=== PATIENT | female | born 1960 | race Caucasian/White ===

== ENCOUNTER 2023-09-25 12:30 | Outpatient (OUT) | payer OTHER, SELFPAY ==
--- NOTE | 2023-09-25 | RT_ITS ---
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 Findings were considered accurate and reproducible. Both pre- and post-bronchodilator values utilized for spirometry. Spirometry (based on pre-bronchodilator values): -FEV1/FVC: Normal @ 76% -FEV1: Normal @ 84% -FVC: Normal @ 85% -There is no significant bronchodilator response. Impressions: -Technically normal spirometry - non-diagnostic. If asthma remains in the differential, may consider methacholine challenge testing. May also consider ordering plethysmography and diffusion capacity if concerned for cardiovascular pulmonary disease or interstitial lung disease. Clinical correlation required. Electronically Signed On 09-28-2023 7:54:09 EDT by Alonso Turner
[2023-09-25] MEDS: ALBUTEROL SULFATE 2.5 MG/3 ML VIAL NEB IH (13:03)
== END 2023-09-25 12:31 | disposition home or self-care (01) ==
LOC: CARD 12:33
PROVIDERS: PCP Family Medicine; Visit Provider Family Medicine
DX: R06.09 Other forms of dyspnea (principal)
CPT/HCPCS: 94060

== ENCOUNTER 2023-11-07 18:21 | Inpatient (IN) | payer OTHER, SELFPAY ==
[2023-11-07] VITALS (22 sets, daily range): BP systolic 107–163; BP diastolic 91–119; PULSE 72–88; TEMP 35.9–36.6; O2SAT 91–98; BMI 26.8
--- NOTE | 2023-11-07 18:34 | ED.SOB1 ---
HPI - SOB/Dyspnea General Chief Complaint: Shortness of Breath/Dyspnea Stated Complaint: DIFF BREATHING Time Seen by Provider: 11/07/23 18:33 Source: patient Mode of arrival: ambulance History of Present Illness HPI Narrative: This patient is here by EMS for shortness of breath. Paramedics report that her family had her on the porch waiting for them to go. She was on 4 L of nasal cannula but had a pulse ox in the low 80s. They administered a nonrebreather mask and it did improve. Historically the paramedics obtained the story that she was just at [email or web address] hospitalized for approximately 1 week and was just discharged. She went home on oxygen. Prior to that she had never been on any oxygen therapy. They did not do a bronchoscopy and according to the patient they were not exactly sure what the problem was but they want her to follow-up with the sourcing specialist. She does say that they checked her heart and every there is seem to be normal. She does not use tobacco products and has no history of asthma or reactive lung disease or COPD. She is not taking any antibiotics. We are waiting for family members to arrive. She was seen immediately upon arrival by myself. Related Data Allergies Allergy/AdvReac Type Severity Reaction Status Date / Time aspirin AdvReac Severe Unknown Verified 11/07/23 18:35 clopidogrel [From Plavix] AdvReac Severe Unknown Verified 11/07/23 18:35 ibuprofen AdvReac Severe Unknown Verified 11/07/23 18:35 Exam Constitutional Vital Signs, click to edit/add: Last Vital Signs Temp 96.6 F L 11/07/23 18:23 Pulse 87 11/07/23 18:23 Resp 24 H 11/07/23 18:23 BP 149/114 H 11/07/23 18:23 Pulse Ox 93 L 11/07/23 18:23 O2 Del Method Nonrebreather 11/07/23 18:23 O2 Flow Rate 10 11/07/23 18:23 Course Vital Signs Vital signs: Vital Signs Temperature 96.6 F L 11/07/23 18:23 Pulse Rate 87 11/07/23 18:23 Respiratory Rate 24 H 11/07/23 18:23 Blood Pressure 149/114 H 11/07/23 18:23 Pulse Oximetry 93 L 11/07/23 18:23 Oxygen Delivery Method Nonrebreather 11/07/23 18:23 Oxygen Delivery Flow Rate 10 11/07/23 18:23 Temperature 96.6 F L 11/07/23 18:23 Pulse Rate 87 11/07/23 18:23 Respiratory Rate 24 H 11/07/23 18:23 Blood Pressure 149/114 H 11/07/23 18:23 Pulse Oximetry 93 L 11/07/23 18:23 Oxygen Delivery Method Nonrebreather 11/07/23 18:23 Oxygen Delivery Flow Rate 10 11/07/23 18:23 Discharge Plan Discharge Chief Complaint: Shortness of Breath/Dyspnea Print Language: Pashto
--- NOTE | 2023-11-07 18:35 | XR_ITS ---
[place] [id number] Patient Name: JA TAVERA MRN: [id number] date: 1960 Sex: F Assigned Patient Location: ER Current Patient Location: ED.MAIN Accession/Order Number: [id number] Exam Date: 11/07/2023 18:45 Report Date: 11/07/2023 20:34 At the request of: ANNE JUNE Procedure: XR chest 1V EXAM: XR chest 1V , 11/07/2023 HISTORY: Dyspnea COMPARISON: Previous x-ray from [address] scan from 2019. TECHNIQUE: X-ray of the chest portable upright AP view. FINDINGS: Mild enlargement of the cardiac silhouette. No hilar or mediastinal enlargement. The lungs and costophrenic angles are clear. Calcified granuloma mid left lung. No acute osseous findings. XR/XR chest 1V IMPRESSION: Mild enlargement of the cardiac silhouette. Electronically authenticated by: MARY MUNOZ Date: 11/07/2023 20:34
--- NOTE | 2023-11-07 18:35 | ECG_ITS ---
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
[2023-11-07] MEDS: IPRATROPIUM/ALBUTEROL SULFATE 3 ML AMPUL.NEB IH (18:39)
[2023-11-07 18:50] LABS: PCO2 VBG 31.9 mmHg (40.0-52.0); pH VBG 7.402 (7.330-7.430)
[2023-11-07 18:56] LABS: Basophils Percent Auto 0.3 % (0.2-2.0); Hematocrit 50.2 % (36.0-48.0); Hemoglobin 16.2 g/dL (12.0-16.0); Immature Granulocytes Abs Auto 0.07 10^3/uL (0.00-0.03); Immature Granulocytes Pct Auto 0.5 % (0.0-0.5); Lymphocytes Percent Auto 7.3 % (20.5-60.0); Mean Corpuscular HGB Conc 32.3 g/dL (29.9-35.2); Mean Corpuscular Hemoglobin 28.2 pg (26.7-34.0); Mean Corpuscular Volume 87.3 fL (81.0-99.0); Mean Platelet Volume 11.2 fL (9.5-13.5); Neutrophils Absolute Auto 11.6 10^3/uL (1.4-6.5); Neutrophils Percent Auto 84.9 % (43.0-75.0); Platelet Count 110 10^3/uL (150-450); Red Blood Count 5.75 10^6/uL (4.20-5.40); White Blood Count 13.6 10^3/uL (4.0-11.0)
[2023-11-07 19:10] LABS: Adenovirus NOT DETECTED (NOT DETECTE); Bordetella parapertussis NOT DETECTED (NOT DETECTE); Coronavirus 229E NOT DETECTED (NOT DETECTE); Coronavirus HKU1 NOT DETECTED (NOT DETECTE); Coronavirus NL63 NOT DETECTED (NOT DETECTE); Coronavirus OC43 NOT DETECTED (NOT DETECTE); Human Metapneumovirus NOT DETECTED (NOT DETECTE); Human Rhinovirus/Enterovirus NOT DETECTED (NOT DETECTE); Influenza A NOT DETECTED (NOT DETECTE); Influenza B NOT DETECTED (NOT DETECTE); Mycoplasma pneumoniae NOT DETECTED (NOT DETECTE); Parainfluenza Virus 1 NOT DETECTED (NOT DETECTE); Parainfluenza Virus 2 NOT DETECTED (NOT DETECTE); Parainfluenza Virus 3 NOT DETECTED (NOT DETECTE); Parainfluenza Virus 4 NOT DETECTED (NOT DETECTE); Respiratory Syncytial Virus NOT DETECTED (NOT DETECTE); SARS-CoV-2 NOT DETECTED (NOT DETECTE)
[2023-11-07 19:17] LABS: D Dimer 18.09 mg/L FEU (<=0.59)
[2023-11-07 19:19] LABS: Alanine Aminotransferase 165 U/L (14-59); Albumin Globulin Ratio 0.8; Albumin Level 3.1 g/dL (3.4-5.0); Alkaline Phosphatase 95 U/L (46-116); Anion Gap 14.9; Aspartate Amino Transferase 101 U/L (15-37); BUN Creatinine Ratio 13.3; Bilirubin Total 0.8 mg/dL (0.2-1.0); Calcium 9.6 mg/dL (8.5-10.1); Carbon Dioxide 22.2 mmol/L (21.0-32.0); Chloride 106 mmol/L (98-107); Estimated GFR (African America 18 (>=60); Estimated GFR (Non-African Ame 15 (>=60); Globulin 4.1 g/dL; Glucose 205 mg/dL (74-106); Potassium 5.1 mmol/L (3.5-5.1); Sodium 138 mmol/L (136-145); Total Protein 7.2 g/dL (6.4-8.2)
[2023-11-07 20:53] LABS: Troponin I High Sensitivity 423.7 pg/mL (4.0-51.3)
[2023-11-08] VITALS (28 sets, daily range): BP systolic 130–173; BP diastolic 99–117; PULSE 64–87; TEMP 36.3–37.4; O2SAT 84–96; BMI 20.6
--- NOTE | 2023-11-08 01:27 | ED.GENADUL1 ---
HPI HPI - General Adult General Chief complaint: Shortness of Breath/Dyspnea Stated complaint: DIFF BREATHING Time Seen by Provider: 11/07/23 18:33 Source: patient Mode of arrival: ambulance History of Present Illness HPI narrative: 63-year-old female presented to the emergency department and was initially seen by Dr. Ramsey and signed out to me after discussing the case with him thoroughly. Please see his full history and physical exam. Related Data Home Medications ?Medication ?Instructions ?Recorded ?Confirmed alendronate 35 mg tablet 35 mg PO QWEEK 11/07/23 11/07/23 atorvastatin 40 mg tablet 40 mg PO DAILY 11/07/23 11/07/23 everolimus (immunosuppressive) 0.75 mg PO BID 11/07/23 11/07/23 0.75 mg tablet febuxostat 40 mg tablet 40 mg PO DAILY 11/07/23 11/07/23 insulin aspart U-100 100 unit/mL 10 unit subcut QPM 11/07/23 11/07/23 (3 mL) subcutaneous pen levothyroxine 150 mcg tablet 150 mcg PO QAM 11/07/23 11/07/23 linagliptin 5 mg tablet (Tradjenta) 5 mg PO DAILY 11/07/23 11/07/23 magnesium oxide 400 mg (241.3 mg 400 mg PO DAILY 11/07/23 11/07/23 magnesium) tablet Allergies Allergy/AdvReac Type Severity Reaction Status Date / Time aspirin AdvReac Severe Unknown Verified 11/07/23 18:35 clopidogrel [From Plavix] AdvReac Severe Unknown Verified 11/07/23 18:35 ibuprofen AdvReac Severe Unknown Verified 11/07/23 18:35 Opioid HPI Opioid Management Most Recent Opioid Data: No Data to Display Exam Constitutional Vital Signs, click to edit/add: Last Vital Signs Temp 97.9 F 11/07/23 19:35 Pulse 74 11/07/23 23:30 Resp 12 11/07/23 23:30 BP 136/101 H 11/07/23 23:30 Pulse Ox 91 L 11/07/23 23:30 O2 Del Method Nonrebreather 11/07/23 18:47 O2 Flow Rate 15 11/07/23 18:40 Course Vital Signs Vital signs: Vital Signs Temperature 96.6 F L 11/07/23 18:23 Pulse Rate 87 11/07/23 18:23 Respiratory Rate 24 H 11/07/23 18:23 Blood Pressure 149/114 H 11/07/23 18:23 Pulse Oximetry 93 L 11/07/23 18:23 Oxygen Delivery Method Nonrebreather 11/07/23 18:23 Oxygen Delivery Flow Rate 10 11/07/23 18:23 Temperature 97.9 F 11/07/23 19:35 Pulse Rate 74 11/07/23 23:30 Respiratory Rate 12 11/07/23 23:30 Blood Pressure 136/101 H 11/07/23 23:30 Pulse Oximetry 91 L 11/07/23 23:30 Oxygen Delivery Method Nonrebreather 11/07/23 18:47 Oxygen Delivery Flow Rate 15 11/07/23 18:40 Medical Decision Making MDM Narrative Medical decision making narrative: Extensive workup shows no specific findings. WBC is 13,000. Initial troponin 307 with a repeat of 424. She does not have chest pain and no acute findings on her EKG. This may be related to her chronic renal failure, she had a transplant and number of years ago. She recently had a VQ scan at [facility] that was negative. I have discussed the case thoroughly with the hospitalist there who accepts the patient. They do not have a bed for her right now so we will admit her here awaiting a bed to be available for her at [facility]. Findings are discussed with the patient and her family. Differential Diagnosis Differential Diagnosis: Pneumonia, CHF, COVID Lab Data Lab results reviewed: Yes I reviewed the patient's lab results Labs: Lab Results 11/07/23 11/07/23 11/07/23 Range/Units 18:42 18:49 20:15 WBC 13.6 H (4.0-11.0) 10^3/uL RBC 5.75 H (4.20-5.40) 10^6/uL Hgb 16.2 H (12.0-16.0) g/dL Hct 50.2 H (36.0-48.0) % MCV 87.3 (81.0-99.0) fL MCH 28.2 (26.7-34.0) pg MCHC 32.3 (29.9-35.2) g/dL RDW 14.0 (11.0-15.0) % Plt Count 110 L (150-450) 10^3/uL MPV 11.2 (9.5-13.5) fL Neut % (Auto) 84.9 H (43.0-75.0) % Lymph % (Auto) 7.3 L (20.5-60.0) % Sargent % (Auto) 7.0 (1.7-12.0) % Eos % (Auto) 0.0 L (0.9-7.0) % Baso % (Auto) 0.3 (0.2-2.0) % Neut # (Auto) 11.6 H (1.4-6.5) 10^3/uL Lymph # (Auto) 1.0 L (1.2-3.8) 10^3/uL Sargent # (Auto) 1.0 H (0.3-0.8) 10^3/uL Eos # (Auto) 0.0 (0.0-0.7) 10^3/uL Baso # (Auto) 0.0 (0.0-0.1) 10^3/uL Abs Immat Gran (auto) 0.07 H (0.00-0.03) 10^3/uL Imm/Tot Granulo (auto) 0.5 (0.0-0.5) % D-Dimer 18.09 H* (<=0.59) mg/L FEU VBG pH 7.402 (7.330-7.430) VBG pCO2 31.9 L (40.0-52.0) mmHg Sodium 138 (136-145) mmol/L Potassium 5.1 (3.5-5.1) mmol/L Chloride 106 (98-107) mmol/L Carbon Dioxide 22.2 (21.0-32.0) mmol/L Anion Gap 14.9 BUN 42.0 H (7.0-18.0) mg/dL Creatinine 3.16 H (0.55-1.02) mg/dL Est GFR ( Amer) 18 L (>=60) Est GFR (Non-Af Amer) 15 L (>=60) BUN/Creatinine Ratio 13.3 Glucose 205 H (74-106) mg/dL Calcium 9.6 (8.5-10.1) mg/dL Total Bilirubin 0.8 (0.2-1.0) mg/dL AST 101 H (15-37) U/L ALT 165 H (14-59) U/L Alkaline Phosphatase 95 (46-116) U/L Troponin I High Sens 371.0 H* 423.7 H* (4.0-51.3) pg/mL NT-Pro-B Natriuret Pep 20409.0 H* (<=900.0) pg/mL Total Protein 7.2 (6.4-8.2) g/dL Albumin 3.1 L (3.4-5.0) g/dL Globulin 4.1 g/dL Albumin/Globulin Ratio 0.8 Adenovirus (PCR) Not detected (NOT DETECTE) B. pertussis DNA (PCR) Not detected (NOT DETECTE) B.parapertussis DNA PCR Not detected (NOT DETECTE) C. pneumoniae DNA (PCR) Not detected (NOT DETECTE) Coronavirus Type OC43 Not detected (NOT DETECTE) Coronavirus Type HKU1 Not detected (NOT DETECTE) Coronavirus Type 229E Not detected (NOT DETECTE) Coronavirus Type NL63 Not detected (NOT DETECTE) Human Metapneumovir PCR Not detected (NOT DETECTE) Influenza Type A (PCR) Not detected (NOT DETECTE) Influenza Type B (PCR) Not detected (NOT DETECTE) M. pneumoniae (PCR) Not detected (NOT DETECTE) Parainfluenza PCR Not detected (NOT DETECTE) Parainfluenza 2 (PCR) Not detected (NOT DETECTE) Parainfluenza 3 (PCR) Not detected (NOT DETECTE) Parainfluenza 4 (PCR) Not detected (NOT DETECTE) RSV (RT-PCR) Not detected (NOT DETECTE) Entero/Rhino (PCR) Not detected (NOT DETECTE) SARS-CoV-2 (PCR) Not detected (NOT DETECTE) Imaging Data Chest x-ray: Radiologist's impression: ITS Impressions Chest X-Ray 11/07/23 18:35 IMPRESSION: Mild enlargement of the cardiac silhouette. Electronically authenticated by: MARY MUNOZ Date: 11/07/2023 20:34 ECG Data Attestation: I personally reviewed and interpreted this ECG as follows: (EKG on my interpretation shows normal sinus rhythm with a rate of 83 and no acute change) Discharge Plan Discharge Chief Complaint: Shortness of Breath/Dyspnea Clinical Impression: Hypoxemia Patient Disposition: Xfer Acute Care Hospital Time of Disposition Decision: 00:30 Discharge Location: [facility] Condition: Fair Mode of Transportation: EMS
[2023-11-08] MEDS: HEPARIN SODIUM (PORCINE) 5,000 UNIT/ML VIAL 5000 UNIT SUBQ (05:14)
[2023-11-08 05:20] LABS: Glucometer 49 mg/dL (74-106)
[2023-11-08 06:01] LABS: Glucometer 84 mg/dL (74-106)
[2023-11-08 06:19] LABS: Hematocrit 48.8 % (36.0-48.0); Hemoglobin 15.8 g/dL (12.0-16.0); Mean Corpuscular HGB Conc 32.4 g/dL (29.9-35.2); Mean Corpuscular Hemoglobin 28.1 pg (26.7-34.0); Mean Corpuscular Volume 86.7 fL (81.0-99.0); Mean Platelet Volume 11.2 fL (9.5-13.5); Platelet Count 100 10^3/uL (150-450); Red Blood Count 5.63 10^6/uL (4.20-5.40); Red Cell Distribution Width 13.9 % (11.0-15.0)
[2023-11-08 06:49] LABS: Alanine Aminotransferase 128 U/L (14-59); Albumin Globulin Ratio 0.7; Albumin Level 2.8 g/dL (3.4-5.0); Alkaline Phosphatase 80 U/L (46-116); Anion Gap 18.1; Aspartate Amino Transferase 71 U/L (15-37); Bilirubin Total 0.9 mg/dL (0.2-1.0); Calcium 9.5 mg/dL (8.5-10.1); Carbon Dioxide 20.3 mmol/L (21.0-32.0); Chloride 108 mmol/L (98-107); Estimated GFR (African America 21 (>=60); Estimated GFR (Non-African Ame 17 (>=60); Globulin 3.8 g/dL; Glucose 92 mg/dL (74-106); Magnesium 1.8 mg/dL (1.8-2.4); Phosphorus 3.3 mg/dL (2.6-4.7); Potassium 3.4 mmol/L (3.5-5.1); Sodium 143 mmol/L (136-145); Total Protein 6.6 g/dL (6.4-8.2)
[2023-11-08 06:51] LABS: Troponin I High Sensitivity 533.9 pg/mL (4.0-51.3)
[2023-11-08 06:58] LABS: Basophils Abs Manual 0.14 10^3/uL (0.00-0.10); Lymphocytes Absolute Manual 2.24 10^3/uL (1.20-3.80); Monocytes Absolute Manual 0.56 10^3/uL (0.30-0.80); Segmented Neut Absolute Manual 11.06 10^3/uL (1.4-6.5)
[2023-11-08 07:02] LABS: Burr Cells 1+
--- NOTE | 2023-11-08 08:40 | XR_ITS ---
[address] [address] Patient Name: JA TAVERA MRN: [id number] date: 1960 Sex: F Assigned Patient Location: MS Current Patient Location: ICU Accession/Order Number: [id number] Exam Date: 11/08/2023 09:48 Report Date: 11/08/2023 11:31 At the request of: CHRISTI CALVIN Procedure: XR chest 1V EXAM: XR chest 1V HISTORY: shortness of breath COMPARISON: Chest CT 04/14/2019, chest x-ray 02/03/2020.. FINDINGS: AP upright portable image. Cardiac silhouette appears slightly enlarged on AP examination. Lungs and pleural spaces are clear. Pulmonary vascular markings are normal. No airspace consolidation. XR/XR chest 1V IMPRESSION: 1. No acute cardiopulmonary process. Electronically authenticated by: REJI BARBOSA Date: 11/08/2023 11:31
[2023-11-08] MEDS: LEVOTHYROXINE SODIUM 75 MCG TABLET 150 MCG PO (08:56)
[2023-11-08] MEDS: METOPROLOL TARTRATE 25 MG TABLET PO (08:56)
[2023-11-08] MEDS: HYDROXYZINE PAMOATE 25 MG CAPSULE PO ×2 (08:56→14:46)
[2023-11-08] MEDS: FEBUXOSTAT 40 MG TABLET PO (08:57)
[2023-11-08] MEDS: MAGNESIUM OXIDE 400 MG TABLET PO (08:57)
[2023-11-08 09:27] LABS: INR 1.02; Partial Thromboplastin Time 30.5 sec (22.3-36.2); Prothrombin Time 10.8 sec (9.0-11.6)
[2023-11-08] MEDS: HEPARIN SODIUM,PORCINE/D5W 25,000 UNIT/500 ML IV.SOLN 27.108 UNIT IV (10:15)
--- NOTE | 2023-11-08 10:31 | P.HP_ITS ---
HPI H&P: HPI History of Present Illness Chief complaint: DIFF BREATHING Narrative: Patient is a 63 y.o White female with past medical history of Kidney Transplant Surgery 2006, Insulin dependent type 2 diabetes, Gout, hypothyroidism, hyperlipidemia, Hypertension and anxiety who presented to the ER last night with increased shortness of breath and low oxygen saturations. Patient was admitted at [facility] about 10 days ago for a total of 5 days, and has been home about 4 days. She reports she was being treated for pneumonia. She notes she also had a v/q scan that was negative. she had infectious disease doctor, tile professional, hospitalist all caring for her there. She was discharged home on 4L continuous Nasal Cannula and was suppose to follow up with all source intelligence technician. Yesterday she developed significant shortness of breath after showering and felt like she was suffocating when trying to breath deep. She denies fevers, chills, cough, nasal congestion or chest pain. her oxgyen was found to be 85% on her 4L so EMS was called. She denies any prior heart history other than hypertension of which she takes metoprolol. She denies any lung history, no asthma, COPD, never smoked (second hand smoke as her father growing up smoked 3 ppd). Her renal function has been elevated recently, she has only a single donor kidney. She has family history on both sides, Aunts having CA's that were fatal. She has never had heart attack or stroke. She also has no prior history of blood clots or family history of. Patient has been Accepted at [facility] but we are awaiting bed. ER findings: D-dimer 18, Cr 3.16, ProBNP 25,000, Trop 423, 533, increased LFT's 128/71, K 3.4; Cxr showed no acute process This morning patient is still present in our facility, on exam she is very short of breath with conversing. No wheezing or coughing. She also appears very nervous and tremulous. I have discussed all findings with patient. She needs transferred for further cardiac work up, and cardiology evaluation and pulmonary evaluation. She needs ECHO, V/G scan and possible Vascular. while waiting for a bed, I have placed patient on a heparin Drip. Baseline PTT pending. Will check PTT q6 hours and adjust drip accordingly. She was transferred to ICU as oxygen saturations dropped to 86% and she was placed on High flow oxygen and she is high risk for rapid decline, BPAP and possible intubation. I am treating for Presumed PE, Heart strain, NSTEMI, Acute on Chronic renal failure, and transaminitis. Opioid HPI Opioid Management Most Recent Pain and Opioid Data: Last Pain Assessment 11/08/23 09:27 Last ORT Total Score 0 11/08/23 03:01 Last ORT Risk Category Low Risk 11/08/23 03:01 Review of Systems ROS Narrative ROS: a complete review of systems were reviewed with patient and are positive as below or listed in History of Chief Complaint. General: no fever, chills, night sweats Head: no headache, trauma, visual changes, nausea or vomiting Skin: no reported rashes, itching or sores Eyes: no blurriness of vision Ears: no reported hearing loss, vertigo, earache, or tinnitus Throat: no sore throat, hoarseness, swelling of neck, or tongue pain Heart: no chest pain Lungs: shortness of breath, no cough GI: no diarrhea or vomiting/nausea Urinary: no urinary urgency, frequency or pain Neuro: no numbness or tingling HEM: no bleeding issues or bruising ENDO: no thyroid problems Psych: anxiety PFSH PFS Medical History (Updated 11/08/23 @ 10:59 by Samantha Kathleen DO) Hypothyroidism ?E03.9 - Hypothyroidism, unspecified (ICD-10) Gout ?M10.9 - Gout, unspecified (ICD-10) Insulin dependent diabetes mellitus Tonsillectomy planned Elevated troponin ?R79.89 - Other specified abnormal findings of blood chemistry (ICD-10) Congestive heart failure ?I50.9 - Heart failure, unspecified (ICD-10) Pneumonia ?J18.9 - Pneumonia, unspecified organism (ICD-10) Shortness of breath ?R06.02 - Shortness of breath (ICD-10) Surgical History History of carpal tunnel release ?Z98.890 - Other specified postprocedural states (ICD-10) H/O dilation and curettage ?Z98.890 - Other specified postprocedural states (ICD-10) Kidney transplant recipient ?Z94.0 - Kidney transplant status (ICD-10) Social History Known occupational exposures/hazards: No Highest level of school completed/degree received: high school graduate Little interest or pleasure in doing things: not at all Feeling down, depressed, or hopeless: not at all Meds Home Medications and Allergies Home Medications ?Medication ?Instructions ?Recorded ?Confirmed ?Type alendronate 35 mg tablet 35 mg PO QWEEK 11/07/23 11/07/23 History atorvastatin 40 mg tablet 40 mg PO DAILY 11/07/23 11/07/23 History everolimus (immunosuppressive) 0.75 mg PO BID 11/07/23 11/07/23 History 0.75 mg tablet febuxostat 40 mg tablet 40 mg PO DAILY 11/07/23 11/07/23 History insulin aspart U-100 100 unit/mL 10 unit subcut QPM 11/07/23 11/07/23 History (3 mL) subcutaneous pen levothyroxine 150 mcg tablet 150 mcg PO QAM 11/07/23 11/07/23 History linagliptin 5 mg tablet (Tradjenta) 5 mg PO DAILY 11/07/23 11/07/23 History magnesium oxide 400 mg (241.3 mg 400 mg PO DAILY 11/07/23 11/07/23 History magnesium) tablet metoprolol tartrate 25 mg tablet 25 mg PO BID 11/08/23 11/08/23 History Allergies Allergy/AdvReac Type Severity Reaction Status Date / Time aspirin AdvReac Severe Unknown Verified 11/07/23 18:35 clopidogrel [From Plavix] AdvReac Severe Unknown Verified 11/07/23 18:35 ibuprofen AdvReac Severe Unknown Verified 11/07/23 18:35 Exam Narrative Exam Narrative: General: Patient is alert, and oriented to person, place and time, proper hygiene, patient appears very nervous, tremulous and short of breath while conversing Skin: no visible rashes, or ulcers Head: atraumatic, acephalic Eyes: PERRLA, no nystagmus present, conjunctiva clear, no scleral icterus Ears: normal Tympanic Membrane, normal gross auditory acuity Nose: symmetric, no discharge, no maxillary or frontal sinus tenderness Mouth/Throat: no erythema, exudate, or tonsillar enlargement, normal dentition Neck: no masses palpated, normal thyroid Heart: Normal rate and rhythm, no murmurs/rubs/gallops Lungs: no audible wheezes, crackles and normal breath sounds all lung byrnes Abdomen: Normal audible bowel sounds, no distension, No palpable masses, no organomegaly, no rebound/guarding/ or rigidity Musculoskeletal: no swelling bilateral lower extremities Neuro: CN II-X grossly intact Constitutional Vital Signs, click to edit/add: Last Vital Signs Temp 98.2 F 11/08/23 08:00 Pulse 82 11/08/23 10:00 Resp 22 H 11/08/23 08:00 BP 157/100 H 11/08/23 08:00 Pulse Ox 93 L 11/08/23 09:13 O2 Del Method High Flow Nasal Cannula 11/08/23 09:13 O2 Flow Rate 10 11/08/23 09:13 Results Labs Labs: Short CBC 11/07/23 11/08/23 Range/Units 18:42 06:00 WBC 13.6 H 14.0 H (4.0-11.0) 10^3/uL Hgb 16.2 H 15.8 (12.0-16.0) g/dL Hct 50.2 H 48.8 H (36.0-48.0) % Plt Count 110 L 100 L (150-450) 10^3/uL BMP 11/07/23 11/08/23 18:42 06:00 Sodium 138 143 Potassium 5.1 3.4 L Chloride 106 108 H Carbon Dioxide 22.2 20.3 L BUN 42.0 H 39.0 H Creatinine 3.16 H 2.79 H Glucose 205 H 92 Calcium 9.6 9.5 Liver Function 11/07/23 11/08/23 Range/Units 18:42 06:00 Total Bilirubin 0.8 0.9 (0.2-1.0) mg/dL AST 101 H 71 H (15-37) U/L ALT 165 H 128 H (14-59) U/L Alkaline Phosphatase 95 80 (46-116) U/L Albumin 3.1 L 2.8 L (3.4-5.0) g/dL ABG ABG results: 11/07/23 18:42 VBG pH 7.402 VBG pCO2 31.9 L Assessment and Plan Assessment and Plan (1) Pulmonary embolism: Assessment and Plan: not able to do V/Q scan or CTA given renal function, in the setting of hypoxia, and elevated Ddimer will treat as though present with Heparin drip. Qualifiers: Chronicity: acute Acute cor pulmonale presence: unspecified Pulmonary embolism type: unspecified Qualified Code(s): I26.99 - Other pulmonary embolism without acute cor pulmonale (2) Acute respiratory failure with hypoxemia: Assessment and Plan: probable cause #1, patient transferred to ICU (3) NSTEMI (non-ST elevated myocardial infarction): Assessment and Plan: patient needs ECHO and further cardiac evaluation. continue statin, allergic to aspirin and plavix. Continue Heparin drip, Could be related to PE. Patient does not appear to hypervolemic; trops trending up 423, 533 (4) Heart failure with acute decompensation, type unknown: Assessment and Plan: patient does not appear fluid overloaded, elevated probnp 25,000, no pulmonary edema seen on CXR, no LE edema. concern for heart strain from Pulmonary emboli Qualifiers: Heart failure type: unspecified Qualified Code(s): I50.9 - Heart failure, unspecified (5) Elevated LFTs: Assessment and Plan: will need Liver ultrasound at outside facility (6) Acute on chronic renal failure: Assessment and Plan: avoid nephrotoxic meds, kidney transplant and solitary kidney Qualifiers: Acute renal failure type: unspecified Chronic kidney disease stage: unspecified stage Qualified Code(s): N17.9 - Acute kidney failure, unspecified; N18.9 - Chronic kidney disease, unspecified (7) Hypertensive cardiomegaly with heart failure: Assessment and Plan: elevated BP, start metoprolol (8) Insulin dependent diabetes mellitus: Assessment and Plan: SSI, with accuchecks, continue U100 at 10 units (9) Gout: Assessment and Plan: continue uloric Qualifiers: Gout site: unspecified site Gout etiology: due to renal impairment Chronicity: chronic Presence of tophus: without tophus Qualified Code(s): M1A.30X0 - Chronic gout due to renal impairment, unspecified site, without tophus (tophi) (10) Hypothyroidism: Assessment and Plan: continue levothyroxine Qualifiers: Hypothyroidism type: acquired Qualified Code(s): E03.9 - Hypothyroidism, unspecified (11) Kidney transplant recipient: (12) Severe anxiety with panic: Assessment and Plan: will place on Vistaril as needed. Plan Patient is a full code on Heparin drip and titrate accordingly to PTT Patient is inpatient status and hopeful transfer to [facility] today for higher level of care.
[2023-11-08] MEDS: EVEROLIMUS 0.75 MG 0.75 EACH PO (11:09)
[2023-11-08 11:19] LABS: Glucometer 140 mg/dL (74-106)
[2023-11-08] MEDS: HYDRALAZINE HCL 20 MG/ML VIAL 5 MG IVP (12:09)
[2023-11-08 12:20] LABS: Glucometer 140 mg/dL (74-106)
[2023-11-08] MEDS: NITROGLYCERIN 0.4 MG BOTTLE SL (14:27)
[2023-11-08 14:39] LABS: PTT Heparin Monitor 101.1 sec (48.2-68.6)
--- NOTE | 2023-11-08 15:16 | PC.NURSE ---
Recap of time from transfer to ICU of 1010: 1010-patient arrived to room 274. Handoff report received from Lily KAY from Med/Surg. Heparin gtt initiated as charted in APR. head to toe assessment completed as charted. patient SOB and states she does not have any pain at this time. call light within reach. 1030-significant other at bedside. questions answered. 1127-Dr. Kathleen updated on additional home medications being added to her list and also of BP. 1138-Dr. Kathleen on unit. Updated given to her on patient. She saw and spoke to patient and significant other. 1300-patient requesting to use the bedside commode. patient sat up in bed and stated she felt very dizzy and became very SOB. WOB increased. distraction and breathing techniques used to help ease patient. educated patient on need to use the bedpan at this time to decrease work for her. patient lifted bottom and bedpan placed. increased WOB noted. SpO2 decrease to 88% then after a couple of minutes returned to 92% on the 10L of oxygen. 1325-patient states she is finished on the bedpan. it was removed and pericare completed with a change in pad under her. patient with severe SOB and WOB. SpO2 decreased to 84%. RT called, instructed to increase oxygen to no more then 15L. oxygen increased by RN to 13L. SpO2 increased to 92% after several minutes of using distraction, breathing techniques, and reassurance. 1355-Dr. Kathleen notified of incidence and the increased need for additional oxygen. 1404-Dr. Kathleen called in, RN instructed to administer NTG SL once now for patient and to decrease oxygen as she recovers. Oxygen decreased to 12L, SpO2 93%. 1430-SpO2 94%, oxygen decreased to 11L 1440-lab called and informed RN that PTT was 101.1. Dr. Kathleen arrived to unit at the same time. informed of PTT. new communication order received to hold heparin gtt for one hour then decreased by 3mL/hr. Restarting rate will be 24.1mL/hr. Dr. Kathleen also went to patient and spoke with her and her significant other. Updated that [facility] [[email or web address] does not have any beds. She states she feels she needs a higher level of care. Patient and significant other agree to looking at other higher care facilities. 1446-Visteril given to patient per request. SpO2 94%, oxygen decreased to 10L.
--- NOTE | 2023-11-08 16:00 | PC.NURSE ---
Dr. Kathleen to unit to sign transfer paperwork. updated on patient.
--- NOTE | 2023-11-08 16:20 | P.DS_ITS ---
DS: Providers Provider Date of admission: 11/08/23 01:22 Primary care physician: АЛЕКСАНДР WATSON DO Admitting clinician: Samantha Kathleen Consults: 11/08/23 15:07 Consult to Cardiology Routine Reason for consultation: NSTEMI, hypoxia, elevated probnp Has provider been notified: No Discharging clinician: Samantha Kathleen DS: Diagnosis Discharge Diagnosis (1) Pulmonary embolism: Qualifiers: Pulmonary embolism type: unspecified Chronicity: acute Acute cor pulmonale presence: unspecified Qualified Code(s): I26.99 - Other pulmonary embolism without acute cor pulmonale (2) Acute respiratory failure with hypoxemia: (3) NSTEMI (non-ST elevated myocardial infarction): (4) Heart failure with acute decompensation, type unknown: Qualifiers: Heart failure type: unspecified Qualified Code(s): I50.9 - Heart failure, unspecified (5) Elevated LFTs: (6) Acute on chronic renal failure: Qualifiers: Acute renal failure type: unspecified Chronic kidney disease stage: unspecified stage Qualified Code(s): N17.9 - Acute kidney failure, unspecified; N18.9 - Chronic kidney disease, unspecified (7) Hypertensive cardiomegaly with heart failure: (8) Insulin dependent diabetes mellitus: (9) Gout: Qualifiers: Gout site: unspecified site Gout etiology: due to renal impairment Chronicity: chronic Presence of tophus: without tophus Qualified Code(s): M1A.30X0 - Chronic gout due to renal impairment, unspecified site, without tophus (tophi) (10) Hypothyroidism: Qualifiers: Hypothyroidism type: acquired Qualified Code(s): E03.9 - Hypothyroidism, unspecified (11) Kidney transplant recipient: (12) Severe anxiety with panic: DS: Summary Hospital Course Hospital Course: Patient was accepted at [facility] [[email or web address]] but the medical center went on Diversion. Due to the critical nature of her condition and need for multi-specialty care and higher level of care patient was accepted and transferred to [facility] under the Care of Dr. Allen. Her PTT was 101, her Heparin drip was held for 1 hour and restarted at lower dosage. She was given 1 dose of SL Nitro for chest pressure and elevated BP, Vistaril also helped patient relax. She was saturating in 93% on high flow NC at 10L. She will be transferred by EMS. Patient and are aware and agree with plan. Status at Discharge Functional status at discharge: bed bound Overall status at discharge: patient is not back to baseline Time Spent with Patient Time attestation: Total time spent providing and/or coordinating discharge services: Time spent: greater than 30 minutes Exam Narrative Exam Narrative: please see H&P dated 11/08/23 Constitutional Vital Signs, click to edit/add: Last Vital Signs Temp 97.4 F L 11/08/23 16:00 Pulse 76 11/08/23 16:00 Resp 20 11/08/23 16:00 BP 134/99 H 11/08/23 16:00 Pulse Ox 92 L 11/08/23 16:00 O2 Del Method High Flow Nasal Cannula 11/08/23 16:00 O2 Flow Rate 10 11/08/23 16:00 DS: Data Data Completed and Pending Labs on day of discharge: Labs from last 24 hours 11/08/23 11/08/23 11/08/23 13:58 12:18 11:13 WBC RBC Hgb Hct MCV MCH MCHC RDW Plt Count MPV Neut % (Auto) Lymph % (Auto) Rincon % (Auto) Eos % (Auto) Baso % (Auto) Neut # (Auto) Lymph # (Auto) Rincon # (Auto) Eos # (Auto) Baso # (Auto) Abs Immat Gran (auto) Seg Neuts % (Manual) Lymphocytes % (Manual) Monocytes % (Manual) Eosinophils % (Manual) Basophils % (Manual) Imm/Tot Granulo (auto) Neutrophils # (Manual) Lymphocytes # (Manual) Monocytes # (Manual) Eosinophils # (Manual) Basophils # (Manual) Rommel Cells PT INR APTT PTT (Heparin Absorb) 101.1 H* D-Dimer VBG pH VBG pCO2 Sodium Potassium Chloride Carbon Dioxide Anion Gap BUN Creatinine Est GFR ( Amer) Est GFR (Non-Af Amer) BUN/Creatinine Ratio Glucose Calcium Phosphorus Magnesium Total Bilirubin AST ALT Alkaline Phosphatase Troponin I High Sens NT-Pro-B Natriuret Pep Total Protein Albumin Globulin Albumin/Globulin Ratio Adenovirus (PCR) B. pertussis DNA (PCR) B.parapertussis DNA PCR C. pneumoniae DNA (PCR) Coronavirus Type OC43 Coronavirus Type HKU1 Coronavirus Type 229E Coronavirus Type NL63 Human Metapneumovir PCR Influenza Type A (PCR) Influenza Type B (PCR) M. pneumoniae (PCR) Parainfluenza PCR Parainfluenza 2 (PCR) Parainfluenza 3 (PCR) Parainfluenza 4 (PCR) RSV (RT-PCR) Entero/Rhino (PCR) SARS-CoV-2 (PCR) POC Glucose 140 H 140 H 11/08/23 11/08/23 11/08/23 08:54 06:00 05:18 WBC 14.0 H RBC 5.63 H Hgb 15.8 Hct 48.8 H MCV 86.7 MCH 28.1 MCHC 32.4 RDW 13.9 Plt Count 100 L MPV 11.2 Neut % (Auto) Lymph % (Auto) Rincon % (Auto) Eos % (Auto) Baso % (Auto) Neut # (Auto) Lymph # (Auto) Rincon # (Auto) Eos # (Auto) Baso # (Auto) Abs Immat Gran (auto) Seg Neuts % (Manual) 79.0 H Lymphocytes % (Manual) 16.0 L Monocytes % (Manual) 4.0 Eosinophils % (Manual) 0.0 L Basophils % (Manual) 1.0 Imm/Tot Granulo (auto) Neutrophils # (Manual) 11.06 H Lymphocytes # (Manual) 2.24 Monocytes # (Manual) 0.56 Eosinophils # (Manual) 0.00 Basophils # (Manual) 0.14 H Rommel Cells 1+ PT 10.8 INR 1.02 APTT 30.5 PTT (Heparin Absorb) D-Dimer VBG pH VBG pCO2 Sodium 143 Potassium 3.4 L Chloride 108 H Carbon Dioxide 20.3 L Anion Gap 18.1 BUN 39.0 H Creatinine 2.79 H Est GFR ( Amer) 21 L Est GFR (Non-Af Amer) 17 L BUN/Creatinine Ratio 14.0 Glucose 92 Calcium 9.5 Phosphorus 3.3 Magnesium 1.8 Total Bilirubin 0.9 AST 71 H ALT 128 H Alkaline Phosphatase 80 Troponin I High Sens 533.9 H* NT-Pro-B Natriuret Pep 96233.0 H* Total Protein 6.6 Albumin 2.8 L Globulin 3.8 Albumin/Globulin Ratio 0.7 Adenovirus (PCR) B. pertussis DNA (PCR) B.parapertussis DNA PCR C. pneumoniae DNA (PCR) Coronavirus Type OC43 Coronavirus Type HKU1 Coronavirus Type 229E Coronavirus Type NL63 Human Metapneumovir PCR Influenza Type A (PCR) Influenza Type B (PCR) M. pneumoniae (PCR) Parainfluenza PCR Parainfluenza 2 (PCR) Parainfluenza 3 (PCR) Parainfluenza 4 (PCR) RSV (RT-PCR) Entero/Rhino (PCR) SARS-CoV-2 (PCR) POC Glucose 84 49 L* 11/07/23 11/07/23 11/07/23 20:15 18:49 18:42 WBC 13.6 H RBC 5.75 H Hgb 16.2 H Hct 50.2 H MCV 87.3 MCH 28.2 MCHC 32.3 RDW 14.0 Plt Count 110 L MPV 11.2 Neut % (Auto) 84.9 H Lymph % (Auto) 7.3 L Rincon % (Auto) 7.0 Eos % (Auto) 0.0 L Baso % (Auto) 0.3 Neut # (Auto) 11.6 H Lymph # (Auto) 1.0 L Rincon # (Auto) 1.0 H Eos # (Auto) 0.0 Baso # (Auto) 0.0 Abs Immat Gran (auto) 0.07 H Seg Neuts % (Manual) Lymphocytes % (Manual) Monocytes % (Manual) Eosinophils % (Manual) Basophils % (Manual) Imm/Tot Granulo (auto) 0.5 Neutrophils # (Manual) Lymphocytes # (Manual) Monocytes # (Manual) Eosinophils # (Manual) Basophils # (Manual) Rommel Cells PT INR APTT PTT (Heparin Absorb) D-Dimer 18.09 H* VBG pH 7.402 VBG pCO2 31.9 L Sodium 138 Potassium 5.1 Chloride 106 Carbon Dioxide 22.2 Anion Gap 14.9 BUN 42.0 H Creatinine 3.16 H Est GFR ( Amer) 18 L Est GFR (Non-Af Amer) 15 L BUN/Creatinine Ratio 13.3 Glucose 205 H Calcium 9.6 Phosphorus Magnesium Total Bilirubin 0.8 AST 101 H ALT 165 H Alkaline Phosphatase 95 Troponin I High Sens 423.7 H* 371.0 H* NT-Pro-B Natriuret Pep 28199.0 H* Total Protein 7.2 Albumin 3.1 L Globulin 4.1 Albumin/Globulin Ratio 0.8 Adenovirus (PCR) Not detected B. pertussis DNA (PCR) Not detected B.parapertussis DNA PCR Not detected C. pneumoniae DNA (PCR) Not detected Coronavirus Type OC43 Not detected Coronavirus Type HKU1 Not detected Coronavirus Type 229E Not detected Coronavirus Type NL63 Not detected Human Metapneumovir PCR Not detected Influenza Type A (PCR) Not detected Influenza Type B (PCR) Not detected M. pneumoniae (PCR) Not detected Parainfluenza PCR Not detected Parainfluenza 2 (PCR) Not detected Parainfluenza 3 (PCR) Not detected Parainfluenza 4 (PCR) Not detected RSV (RT-PCR) Not detected Entero/Rhino (PCR) Not detected SARS-CoV-2 (PCR) Not detected POC Glucose Discharge Plan Dis[facility] Dis[facility]: [facility] Condition: [facility]
[2023-11-08 16:22] LABS: Glucometer 86 mg/dL (74-106)
--- NOTE | 2023-11-08 17:01 | PC.NURSE ---
patient requesting to use the restroom. Vikram initiated for patient.
--- NOTE | 2023-11-08 17:50 | PC.NURSE ---
[facility] transport on unit. Mortgage Loan Officer Vidal given report on patient. Patient transferred to [facility]. Leaving time was 1750.
--- NOTE | 2023-11-08 17:50 | PC.NURSE ---
Iris Londono from [facility]'s given report at this time on patient. Informed of patient leaving at 1750.
--- NOTE | 2023-11-08 18:18 | PC.NURSE ---
Patient normally completely independent, however, due to SOB and increased WOB patient needs a lot of assistance.
== END 2023-11-08 17:50 | disposition short-term general hospital (02) | DRG 175 ==
LOC: ER 11-08 01:46 → MS 11-08 08:17 → ICU 11-08 10:08
PROVIDERS: Emergency Medicine Emergency Medical Services; Registered Nurse; Admitting Provider Family Medicine; Emergency Provider Emergency Medicine; PCP Family Medicine; Visit Provider Family Medicine
DX: I26.99 Other pulmonary embolism without acute cor pulmonale (principal); I21.4 Non-ST elevation (NSTEMI) myocardial infarction; J96.01 Acute respiratory failure with hypoxia; N17.9 Acute kidney failure, unspecified; Z94.0 Kidney transplant status; I13.0 Hypertensive heart and chronic kidney disease with heart failure and stage 1 through stage 4 chronic kidney disease, or unspecified chronic kidney disease; I50.9 Heart failure, unspecified; R79.89 Other specified abnormal findings of blood chemistry; N18.9 Chronic kidney disease, unspecified; E11.22 Type 2 diabetes mellitus with diabetic chronic kidney disease; M1A.30X0 Chronic gout due to renal impairment, unspecified site, without tophus (tophi); E03.9 Hypothyroidism, unspecified; F41.0 Panic disorder [episodic paroxysmal anxiety]; E78.5 Hyperlipidemia, unspecified; Z79.899 Other long term (current) drug therapy; Z79.4 Long term (current) use of insulin; Z79.890 Hormone replacement therapy; Z98.890 Other specified postprocedural states; Z87.01 Personal history of pneumonia (recurrent); Z20.822 Contact with and (suspected) exposure to COVID-19
CPT/HCPCS: 36415; 71045; 80053; 82800; 83735; 83880; 84100; 84484; 85007; 85025; 85027; 85378; 85610; 85730; 87420; 93005; 94640; 94761; 96365; 96366; 96372; 96375; 99285; 0202U; J0360; J1644; Q0177

== ENCOUNTER 2024-03-22 19:51 | Outpatient (OUT) | payer OTHER, SELFPAY ==
--- OUTSIDE RECORDS SUMMARY | 2024-03-22 19:55 | XMS_ITS | CCD ---
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 Bed Operator Name Role Phone FAUSTO Raygoza Attending Provider [phone] Felisa Adams Unavailable ALEJANDRO VILLAGRAN Referring Unavailable VILLAGRAN, ALEJANDRO Primary Care Unavailable [place], [place] Attending Unavailable [place], [place] Admitting Unavailable [place], [place] Admitting Unavailable VILLAGRANALEJANDRO Referring Unavailable VILLAGRANALEJANDRO Primary Care Unavailable [place], [place] Attending Unavailable [place], [place] Admitting Unavailable VILLAGRANALEJANDRO Referring Unavailable [place], [place] Attending Unavailable VILLAGRANALEJANDRO Primary Care Unavailable [place], [place] Admitting Unavailable VILLAGRANALEJANDRO Referring Unavailable [place], [place] Attending Unavailable VILLAGRANALEJANDRO Primary Care Unavailable VILLAGRAN, DR ALEJANDRO Randolph Admitting Unavailable VILLAGRAN, DR ALEJANDRO Randolph Attending Unavailable VILLAGRAN, DR ALEJANDRO Randolph Primary Care Unavailable VILLAGRAN, DR ALEJANDRO Randolph Consulting Unavailable VILLAGRAN, DR ALEJANDRO Randolph Admitting Unavailable VILLAGRAN, DR ALEJANDRO Randolph Attending Unavailable VILLAGRAN, DR ALEJANDRO Randolph Primary Care Unavailable VILLAGRAN, DR ALEJANDRO Randolph Consulting Unavailable ZIEBER, DR SCOTT Nino Consulting Unavailable Unavailable Primary Care Provider UnavailAlejandro Allen MD Primary Care Provider ZANDER KRAMER Consulting Unavailable AL-HURDELMIS, WILLIAM POSTSETONY Admitting Unavail able AL-HURANI BAYJOSAFAT TAYSEER Attending Unavail able SAMANTHA CALVIN Referring Unavailable VILLAGRANALEJANDRO Primary Care Unavailable EDUARDO MUHAMMAD Consulting Unavailable WILLMAXWELL GARAY Consulting Unavailable AVASTHI, STEVEN Consulting Unavailable KITA, LAURO Consulting Unavailable MARILUZKERON Consulting Unavailable SHIRLEY MEEHAN Consulting Unavailable MC, LUIS Consulting Unavailable EDITA, DAQUAN Consulting Unavailable KERON GHOSH Attending Unavailable KERON GHOSH Referring Unavailable VILLAGRANALEJANDRO A Primary Care Unavailable AVASTHI, STEVEN Attending Unavailable AVASTHI, STEVEN Referring Unavailable VILLAGRAN, ALEJANDRO A Primary Care Unavailable Alejandro Villagran MD Primary Care Provider EKWENNA, OBI Referring Unavailable KATKO, SAUL Referring Unavailable HORANI, DOLORES Admitting Unavailable HORANI, DOLORES Attending Unavailable HORANI, DOLORES Admitting Unavailable ALEJANDRA, CODYI Attending Unavailable AIYEWUNMI, TOY Attending Unavailable EKWENNA, OBI Referring Unavailable EKWENNA, OBI Referring Unavailable EKWENNA, OBI Referring Unavailable EKWENNA, OBI Referring Unavailable EKWENNA, OBI Referring Unavailable CHLOEJULIUS PURCELL Referring Unavailable [facility] Referring Unavailable [facility] Referring Unavailable EKWENNA, OBI Attending Unavailable EKWENNA, OBI Referring Unavailable EKWENNA, OBI Referring Unavailable EKWENNA, OBI Referring Unavailable LYNN MEREDITH Referring Unavailable Allergies Allergy Classification Reported Allergen(s) Allergy Type Date of Onset Reaction(s) Facility (3 sources) sulfaSALAzine Drug Allergy Unknown [facility] Other (3 sources) Tolmetin Drug Allergy bleeding [facility] Other (7 sources) Aspirin; Translations: [ASPIRIN] Drug Allergy 1 Other, Other (See Comments) [facility] (7 sources) Ibuprofen; Translations: [IBUPROFEN] Drug Allergy 1 Other, Other (See Comments) [facility] (6 sources) amLODIPine; Translations: [AMLODIPINE] Drug Allergy 4 [facility] (5 sources) clopidogrel Drug Allergy 4 Other, Other (See Comments) [facility] Medications Current Medications Medication Drug Class(es) Dates Sig (Normalized) Sig (Original) alendronic acid 35 mg oral tablet (7 sources) Bisphosphonate alendronate (FOS AMAX) 35 MG tablet Take 1 tablet by mouth every 7 days Active take 1 tablet by mouth every wee k alendronate (Fosamax) 35 MG tablet Take 1 tablet by mouth once a week Active Fosamax Active apixaban 5 mg oral tablet (5 sources) Factor Xa Inhibitor Start: 01-12-2024 take 1 tablet by mouth twice daily apixaban (ELIQUIS) 5 MG TABS tablet Indications: Acute saddle pulmonary embolism with acute cor pulmonale (HCC) , 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 11/16/2023 12/19/2023 Active atorvastatin 40 mg oral tablet (9 sources) HMG-CoA Reductase Inhibitor Start: 11-08-2023 bimatoprost 0.1 mg/ml ophthalmic solution (8 sources) Prostaglandin Analog take 1 drop(s) into the eye(s) once daily in the evening bimatoprost (LUMIGAN) 0.01 % SOLN ophthalmic drops Place 1 drop into both eyes nightly PM Active take 1 drop(s) into the eye(s) at bedtime bimatoprost (Lumigan) 0.01 % ophthalmic solution Administer 1 drop into both eyes at bedtime Active Lumigan Active Calcium (3 sources) Phosphate Binder, Calcium Calcium Active calcium citrate 1500 mg / cholecalciferol 200 unt oral tablet (4 sources) Vitamin D take 1 tablet by mouth once daily calcium citrate-vitamin D (CITRACAL+D) 315-5 MG-MCG TABS per tablet Take 1 tablet by mouth daily Active take 1 tablet by mariia th once in the morning Calcium Citrate-Vitamin D 315-5 MG-MCG t ablet Take 1 tablet by mouth in the morning. Active cephalexin 500 mg oral capsule (3 sources) Cephalosporin Antibacterial Start: 09-09-2021 take 1 capsule by mouth every twelve hours Cephalexin 500 MG 1 capsule Orally every 12 hours for 10 day(s) Aug, Active Start: 05-23-2021 take 1 tablet by mariia th every twelve hours Cephalexin 500 MG 1 tablet Orally every 12 hrs for 10 day(s) Apr, Active Continuous Glucose Sensor (FREESTYLE KVNG 3 SENSOR) MISC (1 source) Start: 12-24-2023 Continuous Glucose Sensor (FREESTYLE KVNG 3 SENSOR) MISC USE DIRECTED AND CHANGE EVERY 14 DAYS 12/24/2023 Active cycloSPORINE (3 sources) Calcineurin Inhibitor Immunosuppressant Restasis Active cycloSPORINE (Restasis) 0.05 % ophthalmic emulsion (3 sources) take 1 drop(s) into the eye(s) every twelve hours cycloSPORINE (Restasis) 0.05 % ophthalmic emulsion Administer 1 drop into both eyes every 12 (twelve) hours Active cycloSPORINE (RESTASIS) 0.05 % ophthalmic emulsion (1 source) take 1 drop(s) into the eye(s) twice daily cycloSPORINE (RESTASIS) 0.05 % ophthalmic emulsion 1 drop 2 times daily Active docosahexaenoic acid 120 mg / eicosapentaenoic acid 180 mg oral capsule (5 sources) take 1 capsule by mouth in the morning Henderson-3 Fatty Acids (OMEGA-3 FISH OIL) 1000 MG CAPS Take 2,000 mg by mouth in the morning and 2,000 mg in the evening. Active take 2 capsules by mouth in the morning omega-3 (Fish Oil) 1000 MG capsule Take 2 capsules by mouth in the morning and 2 capsules before bedtime. Active everolimus 0.75 mg oral tablet (9 sources) Kinase Inhibitor, mTOR Inhibitor Immunosuppressant Start: 11-09-2023 Everolimus Activ e famotidine 20 mg oral tablet (8 sources) Histamine-2 Receptor Antagonist take 1 tablet by mouth twice daily in the morning famotidine (PEPCID) 20 MG tablet Take 1 tablet by mouth 2 times daily am Active Pepcid Active febuxostat 40 mg oral tablet (8 sources) Xanthine Oxidase Inhibitor take 1 tablet by mouth once daily in the morning febuxostat (ULORIC) 40 MG TABS tablet Take 1 tablet by mouth daily am Active Uloric Active ferrous sulfate (3 sources) take 1 tablet by mouth in the morning Ferrous Sulfate (IRON PO) Take 1 tablet by mouth in the morning. Active Fish Oils (3 sources) Fish Oil Active glucagon (rdna) 1 mg injection (1 source) Antihypoglycemic Agent Start: 11-08-19 hydrALAZINE hydrochloride 25 mg oral tablet (1 source) Arteriolar Vasodilator Start: 02-10-20 take 1 tablet by mouth twice daily hydrALAZINE (APRESOLINE) 25 MG tablet TAKE 1 TABLET BY MOUTH TWICE DAILY AT 8:00AM AND 2:00PM 30 tablet 3 02/10/2024 Active Injection Device for Insulin (INPEN 122-[id number]-[id number] P) KURT (1 source) Injection Device for Insulin (INPEN 783-QLSC-[id number]-F IASP) KURT 10 Units by Does not apply route Daily with supper Active insulin detemir (3 sources) Insulin Analog Levemir Active 3 ml insulin glargine 300 unt/ml pen injector (5 sources) Insulin Analog Start: 04-14-19 insulin glargine (Toujeo Max SoloStar) 300 UNIT/ML injection Inject 55 Units under the skin Daily 04/14/2023 Active Insulin Glargine , 2 Unit Dial, (TOUJEO MAX SOLOSTAR) 300 UNIT/ML SOPN Inject 55 Units into the skin daily Active insulin lispro 100 unt/ml injectable solution (2 sources) Insulin Analog Start: 11-08-2023 levothyroxine sodium 0.125 mg oral tablet (9 sources) l-Thyroxine Start: 11-17-2023 take 1 tablet by mouth once daily levothyroxine (SYNTHROID) 125 MCG tablet Take 1 tablet by mouth Daily 30 tablet 3 11/17/2023 Active End: 11-16-2023 Synthroid 135 mc g 1 tablet every morning on an empty stomach Orally Once a day for 30 day(s) Active linagliptin 5 mg oral tablet (5 sources) Dipeptidyl Peptidase 4 Inhibitor take 1 tablet by mouth once daily linagliptin (TRADJENTA) 5 MG tablet Take 1 tablet by mouth daily Active loratadine 10 mg oral capsule (8 sources) take 1 capsule by mouth once daily loratadine (CLARITIN) 10 MG capsule Take 1 capsule by mouth daily Active Claritin Active Magnesium (3 sources) Magnesium Active magnesium oxide 400 mg oral tablet (5 sources) take 1 tablet by mariia th once daily in the evening magnesium oxide (MAG-OX) 400 (240 Mg) MG tablet Take 1 tablet by mouth nightly PM Active take 1 tablet by mouth at bedtim e magnesium oxide (Mag-Ox) 400 (240 Mg) MG tablet Take 400 mg by mouth at bedtime Active metoprolol tartrate 25 mg or al tablet (9 sources) beta-Adrenergic Jeana Start: 11-09-2023 take 1 tablet by mouth once linnea y Metoprolol Succinate 25 MG one tablet Orally Once a day for 90 day(s) Not-Taking Metoprolol-HCTZ ER (3 sources) Metoprolol-HCTZ ER Active Multiple Vitamins-Minerals (THERAPEUTIC MULTIVITAMIN-MINERALS) tablet (1 source) take 1 tablet by mouth once daily Multiple Vitamins-Minerals (THERAPEUTIC MULTIVITAMIN-MINERALS) tablet Take 1 tablet by mouth daily Active Multivitamin preparation (3 sources) Multivitamin Act ted oxybutynin chloride 5 mg oral tablet (4 sources) Cholinergic Muscarinic Antagonist Start: 05-22-19 End: 05-22-19 take 1 tablet by mouth three times daily oxyBUTYnin (DITROPAN) 5 MG tablet Take 1 tablet by mouth 3 times daily 05/22/2023 05/21/2024 Active perflutren lipid microspheres (DEFINITY) injection 1.5 mL (1 source) Start: 11-10-19 phenazopyridine hydrochloride 200 mg oral tablet (1 source) Start: 09-10-19 take 1 tablet by mouth every eight hours Pyridium 200 MG 1 tablet after meals Orally Three times a day for 2 day(s) Aug, Active polyethylene glycol 3350 76534 mg powder for oral solution (1 source) Osmotic Laxative Start: 11-08-19 polyethylene glycol 400 4 mg/ml / propylene glycol 3 mg/ml ophthalmic solution (8 sources) polyethyl glycol-propyl glycol 0.4-0.3 % (SYSTANE) 0.4-0.3 % ophthalmic solution 1 drop as needed for Dry Eyes Active take 1 drop(s) into the eye(s) every twenty-four hours as needed Polyethyl Glycol-Propyl Glycol 0.4-0.3 % solution Administer 1 drop into affected eye(s) Daily as needed Active Systane Active predniSONE 20 mg oral tablet (9 sources) Start: 11-09-2023 take 1 tablet by mouth once linnea y predniSONE (DELTASONE) 10 MG tablet Take 1 tablet by mouth daily Active take 1 tablet by mouth once linnea y predniSONE 5 MG one tablet Orally once a day Active Probiotic (1 source) Probiotic Active sodium bicarbonate 650 mg oral tablet (7 sources) Start: 11-16-2023 take 1 tablet by mouth twice daily sodium bicarbonate 650 MG tablet Take 1 tablet by mouth 2 times daily 30 tablet 11/16/2023 Active Start: 11-13-2023 End: 11-14-2023 5 ml sodium chloride 9 mg/ml injection (6 sources) Start: 11-10-2023 Start: 11-08-2023 Start: 11-08-2023 tacrolimus 0.5 mg oral capsule (10 sources) Calcineurin Inhibitor Immunosuppressant Start: 12-19-2023 take 1 capsule by mouth twice daily tacrolimus (PROGRAF) 0.5 MG capsule Take 1 capsule by mouth 2 times daily 12/19/2023 Active Start: 11-09-2023 take 1 capsule by mo uth twice daily tacrolimus (PROGRAF) 5 MG capsule Take 1 capsule by mouth 2 times daily Active take 1.5 tablets by mouth in the morning, then take 1 tablet by mouth twice daily in the evening Prograf 1 MG 1.5 tablets in the AM, 1 tablet in the evening Orally twice a day Active therapeutic multivitamin-minerals (Theragran-M) tablet (3 sources) take 1 tablet by mouth once daily therapeutic multivitamin-minerals (Theragran-M) tablet Take 1 tablet by mouth Daily Active (1 source) (1 source) (1 source) (1 source) Start: Completed/Discontinued Medications Medication Drug Class(es) Dates Sig (Normalized) Sig (Original) 1 ml epoetin emory 75167 unt/ml injection (3 sources) Erythropoiesis-sti mulating Agent Procrit 25153 UNIT/ML 10,000 units Injection not taking Not-Taking 150 ml glucose 50 mg/ml injection (2 sources) Start: 11-09-2023 End: 11-09-2023 Start: 11-08-2023 250 ml heparin sodium, porcine 100 unt/ml injection (3 sources) Unfractionated Heparin, Anti-coagulant Start: 11-08-2023 End: 11-08-2023 Start: 11-08-2023 End: 11-12-2023 300 ml linezolid 2 mg/ml injection (1 source) Oxazolidinone Antibacterial Start: 11-08-2023 End: 11-09-2023 methylPREDNISolone (3 sources) Corticosteroid Start: 02-08-2016 Depo-Medrol 40 mg Jan, 40 mg (9 sources) Start: 11-12-2023 End: 11-13-2023 Start: 11-12-2023 End: 11-19-2023 [Order 1 Start] Name: apixab an (ELIQUIS) tablet 10 mg Signed Summary: 10 mg, Oral, 2 TIMES DAILY, 14 doses, First dose on Yvette 11/12/23 at 1000, Last dose on Thu11/18/23 at 2100, Indication of Use: Treatment-DVT/PE, ANTICOAGULANT [Order 1 End] [Order 2 Start] Name: apixaban (ELIQUIS) tablet 5 mg Signed Summary: 5 mg, Oral, 2 TIMES DAILY, First dose on Yvette 11/19/23 at 0900, Until Discontinued, Indication of Use: Treatment-DVT/PE, ANTICOAGULANT [Order 2 End] Start: 11-10-2023 Start: 11-10-2023 Start: 11-09-2023 End: 11-12-2023 Start: 11-08-2023 End: 11-09-2023 Start: 11-08-2023 [Order 1 Start ] Name: dextrose bolus 10% 125 mL Signed Summary: 125 mL, IntraVENous, at 937.5 mL/hr, Administer over 8 Minutes, PRN, Other, Blood glucose 40 - 69 mg/dL and patient NOT ALERT or NPO, Starting on Thu11/08/23 at 2023, Repeat blood glucose in 15 minutes. If blood glucose remains LESS THAN 70 mg/dL, repeat treatment and recheck blood glucose in 15 minutes x 2. If using glycemic management system, dose as instructed per system. If blood glucose remains LESS THAN 70 mg/dL after 2 intravenous boluses start dextrose 10% at 100 mL/hour and notify provider. [Order 1 End] [Order 2 Start] Name: dextrose bolus 10% 250 mL Signed Summary: 250 mL, IntraVENous, at 937.5 mL/hr, Administer over 16 Minutes, PRN, Other, Blood glucose LESS THAN 40 mg/dL and patient NOT ALERT or NPO, Starting on Thu11/08/23 at 2023, Repeat blood glucose in 15 minutes. If blood glucose remains LESS THAN 70 mg/dL, repeat treatment and recheck blood glucose in 15 minutes x 2. If using glycemic management system, dose as instructed per system. If blood glucose remains LESS THAN 70 mg/dL after 2 intravenous boluses start dextrose 10% at 100 mL/hour and notify provider. [Order 2 End] Start: 11-08-2023 [Order 1 Start ] Name: acetaminophen (TYLENOL) tablet 650 mg Signed Summary: 650 mg, Oral, EVERY 6 HOURS PRN, Starting on 11/08/23 at 2019, Until Discontinued, Pain Mild (1-3), Fever, For temp greater than 100.4 F (38 C), Maximum dose of acetaminophen is 4000 mg from all sources in 24 hours. [Order 1 End] [Order 2 Start] Name: acetaminophen (TYLENOL) suppository 650 mg Signed Summary: 650 mg, Rectal, EVERY 6 HOURS PRN, Starting on 11/08/23 at 2019, Until Discontinued, Pain Mild (1-3), Fever, For temp greater than 100.4 F (38 C), Administer if oral route cannot be used. [Order 2 End] Start: 11-08-2023 [Order 1 Start ] Name: ondansetron (ZOFRAN-ODT) disintegrating tablet 4 mg Signed Summary: 4 mg, Oral, EVERY 8 HOURS PRN, Starting on 11/08/23 at 2018, Until Discontinued, Nausea, Vomiting [Order 1 End] [Order 2 Start] Name: ondansetron (ZOFRAN) injection 4 mg Signed Summary: 4 mg, IntraVENous, EVERY 6 HOURS PRN, Starting on 11/08/23 at 2018, Until Discontinued, Nausea, Vomiting, Administer if oral route cannot be used. [Order 2 End] (1 source) Start: 11-09-2023 End: 11-16-2023 Problems Active Problems Problem Classification Problem Date Documented Date Episodic/Chronic Acute myocardial infarction (3 sources) Myocardial infarction; Translations: [Non-ST elevation (NSTEMI) myocardial infarction] Onset: 11-08-2023 11-08-2023 Chronic Administrative/social admission (2 sources) Patient encounter status; Translations: [Dietary counseling and surveillance] 12-15-2023 Episodic Cancer of bladder (7 sources) Malignant tumor of urinary bladder; Translations: [Malignant neoplasm of bladder, unspecified] Onset: 10-20-2023 11-08-2023 Chronic Chronic kidney disease (13 sources) Chronic kidney disease stage 4; Translations: [Chronic kidney disease, stage IV] Onset: 10-19-2021 11-13-2023 Chronic Congestive heart failure; nonhypertensive (3 sources) Biventricular congestive heart failure; Translations: [Biventricular heart failure] Onset: 11-09-2023 11-09-2023 Chronic Deficiency and other anemia (3 sources) Anemia of chronic disease; Translations: [Anemia of other chronic disease] Chronic Diabetes mellitus with complications (6 sources) Hyperglycemia due to type 2 diabetes mellitus; Translations: [Type 2 diabetes mellitus with hyperglycemia] Onset: 08-08-2023 12-15-2023 Chronic Diabetes mellitus without complication (5 sources) Diabetes mellitus; Translations: [Type 2 diabetes mellitus without complications] Onset: 12-14-2023 11-08-2023 Chronic Diseases of white blood cells (3 sources) Leukocytosis; Translations: [Elevated white blood cell count, unspecified] Onset: 11-08-2023 11-08-2023 Chronic Disorders of lipid metabolism (7 sources) Pure hypercholesterolemia; Translations: [Pure hypercholesterolemia] Onset: 08-08-2023 12-15-2023 Chronic Essential hypertension (6 sources) Hypertensive disorder; Translations: [Hypertension] 11-08-2023 Chronic Immunity disorders (3 sources) Immunosuppression; Translations: [Immunodeficiency, unspecified] 11-08-2023 Chronic Nutritional deficiencies (2 sources) Vitamin D deficiency; Translations: [Vitamin D deficiency, unspecified] 12-15-2023 Chronic Other aftercare (2 sources) Encounter for aftercare following other organ transplant; Translations: [Encounter for aftercare following other organ transplant] Onset: 07-03-2023 Chronic Other aftercare (2 sources) Long-term current use of insulin; Translations: [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] 12-15-2023 Episodic Other aftercare (2 sources) Long-term current use of systemic steroid; Translations: [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 systemic steroids] 12-15-2023 Episodic Other endocrine disorders (3 sources) Hypoglycemia; Translations: [Hypoglycemia, unspecified] Onset: 11-09-2023 11-09-2023 Chronic Other upper respiratory infections (3 sources) Sinusitis; Translations: [Chronic sinusitis, unspecified] Chronic Peripheral and visceral atherosclerosis (5 sources) Atherosclerosis of aorta; Translations: [Atherosclerosis of aorta] Onset: 11-09-2023 11-09-2023 Chronic Pulmonary heart disease (10 sources) Saddle embolus of pulmonary artery; Translations: [Saddle embolus of pulmonary artery with acute cor pulmonale] Onset: 11-09-2023 02-15-2024 Chronic Pulmonary heart disease (4 sources) Pulmonary embolism; Translations: [Other pulmonary embolism without acute cor pulmonale] Onset: 11-10-2023 11-10-2023 Episodic Residual codes; unclassified (3 sources) H/O: tissue/organ recipient; Translations: [Organ or tissue transplant, unspecified] Chronic Respiratory failure; insufficiency; arrest (adult) (3 sources) [id number] respiratory failure; Translations: [Acute and chronic respiratory failure with hypoxia] Onset: 11-08-2023 11-16-2023 Chronic Thyroid disorders (9 sources) Hypothyroidism; Translations: [Hypothyroidism] Onset: 11-25-2021 Chronic Unclassified (2 sources) Procedure; Translations: [Procedure] Onset: 02-26-2024 Past or Other Problems Problem Classification Problem Date Documented Da te Episodic/Chronic Acute and unspecified renal failure (5 sources) Acute renal failure syndrome; Translations: [Acute kidney failure, unspecified] Onset: 11-08-2023 11-08-2023 Episodic Acute bronchitis (2 sources) Acute bronchiolitis, unspecified; Translations: [Acute bronchiolitis, unspecified] Onset: 10-19-2023 Episodic Cancer of bladder (2 sources) Personal history of malignant neoplasm of bladder; Translations: [Personal history of malignant neoplasm of bladder] Onset: 03-02-2023 Episodic Fluid and electrolyte disorders (3 sources) Metabolic acidosis; Translations: [Metabolic acidosis] Onset: 11-09-2023 11-09-2023 Episodic Genitourinary symptoms and ill-defined conditions (2 sources) Dysuria; Translations: [Hematuria, unspecified] Onset: 09-09-2021 Resolved: 09-09-2021 Episodic Malaise and fatigue (3 sources) Asthenia; Translations: [Other malaise] Onset: 11-13-2023 11-13-2023 Episodic Other aftercare (2 sources) skilled nursing (current) use of insulin; Translations: [skilled nursing (current) use of insulin] Onset: 08-08-2023 Episodic Other aftercare (2 sources) Encounter for follow-up examination after completed treatment for malignant neoplasm; Translations: [Encounter for follow-up examination after completed treatment for malignant neoplasm] Onset: 03-02-2023 Episodic Other circulatory disease (3 sources) Low blood pressure; Translations: [Hypotension, unspecified] Onset: 11-09-2023 11-09-2023 Episodic Other lower respiratory disease (5 sources) Dyspnea; Translations: [Shortness of breath] Onset: 10-19-2023 11-09-2023 Episodic Other lower respiratory disease (2 sources) Shortness of breath; Translations: [Shortness of breath] Onset: 10-19-2023 Episodic Other lower respiratory disease (2 sources) Hypoxia Onset: 11-08-2023 Episodic Other lower respiratory disease (2 sources) Hypoxemia; Translations: [Hypoxemia] Onset: 10-19-2023 Episodic Other lower respiratory disease (2 sources) Other forms of dyspnea; Translations: [Other forms of dyspnea] Onset: 10-19-2023 Episodic Other screening for suspected conditions (not mental disorders or infectious disease) (7 sources) D-dimer above reference range; Translations: [Other specified abnormal findings of blood chemistry] Onset: 06-06-2023 11-08-2023 Episodic Lynne-; endo-; and myocarditis; cardiomyopathy (except that caused by tuberculosis or sexually transmitted disease) (3 sources) Pericardial effusion; Translations: [Pericardial effusion] Onset: 11-09-2023 11-09-2023 Episodic Pneumonia (except that caused by tuberculosis or sexually transmitted disease) (5 sources) Bilateral pneumonia; Translations: [Pneumonia, unspecified organism] Onset: 10-19-2023 11-09-2023 Episodic Respiratory failure; insufficiency; arrest (adult) (3 sources) Acute respiratory failure with hypoxia; Translations: [Acute respiratory failure, unspecified whether with hypoxia or hypercapnia] Onset: 11-08-2023 11-09-2023 Episodic Urinary tract infections (2 sources) Acute cystitis with hematuria; Translations: [Urinary tract infection, site not specified] Onset: 05-23-2021 Resolved: 09-09-2021 Episodic Results Test Name Value Interpretation Reference Range Facility BILIRUBIN, DIRECTon 03-21-19 Magnesium [Mass/Vol] 0.1 mg/dL Normal 0-0.2 [facility] Comment on above: Performed By: #### L [id number] #### [facility] ([facility]) [address] [place] [address] CBC WITH AUTO DIFFERENTIALon 03-21-2024 Basophils (Bld) [#/Vol] 0.05 10*3/uL Normal 0.00-0.20 [facility] Comment on above: Performed By: #### L [id number] #### [facility] ([facility]) [address] [place] [address] Basophils/100 WBC (Bld) 0.6 % Normal 0.0-1.0 [facility] Comment on above: Performed By: #### L AB17 #### [facility] [facility]) [address] [place] [address] Eosinophils (Bld) [#/Vol] 0.14 10*3/uL Normal 0.00-0.50 [facility] Comment on above: Performed By: #### L [id number] #### [facility] ([facility]) [address] [place] [address] Eosinophils/100 WBC (Bld) 1.6 % Normal 0.0-6.0 [facility] Comment on above: Performed By: #### L [id number] #### [facility] ([facility]) [address] [place] [address] Erythrocyte distribution width (RBC) [Ratio] 13.8 % Normal 11.5-15.0 [facility] Comment on above: Performed By: #### L [id number] #### [facility] ([facility]) [address] [place] [address] ERYTHROCYTE MEAN CORPUSCULAR HEMOGLOBIN CONCENTRATION (G/DL) BY AUTOMATED 31.1 g/dL Low 32.0-35.0 [facility] Comment on above: Performed By: #### L [id number] #### [facility] ([facility]) [address] [place] [address] Hematocrit (Bld) [Volume fraction] 39.2 % Normal 36.0-48.0 [facility] Comment on above: Performed By: #### L [id number] #### [facility] ([facility]) [address] [place] [address] Hemoglobin (Bld) [Mass/Vol] 12.2 g/dL Normal 12.0-15.0 [facility] Comment on above: Performed By: #### L [id number] #### [facility] ([facility]) [address] [place] [address] Immature granulocytes (Bld) [#/Vol] 0.05 10*3/uL Normal 0.00-0.20 [facility] Comment on above: Performed By: #### L [id number] #### [facility] [address] [place] [address] Immature granulocytes/100 WBC (Bld) 0.6 % Normal 0.0-1.0 [facility] Comment on above: Performed By: #### L [id number] #### [facility] ([facility]) [address] [place] [address] Lymphocytes (Bld) [#/Vol] 2.57 10*3/uL Normal 1.20-4.00 [facility] Comment on above: Performed By: #### L [id number] #### [facility] [address] [place] [address] Lymphocytes/100 WBC (Bld) 29.0 % Normal 20.0-45.0 [facility] Comment on above: Performed By: #### L [id number] #### [facility] ([facility]) [address] [place] [address] MCH (RBC) [Entitic mass] 27.5 pg Normal 27.0-33.0 [facility] Comment on above: Performed By: #### L [id number] #### [facility] ([facility]) [address] [place] [address] MCV (RBC) [Entitic vol] 88.3 fL Normal 82.0-98.0 [facility] Comment on above: Performed By: #### L [id number] #### [facility] ([facility]) [address] [place] [address] Monocytes (Bld) [#/Vol] 1.17 10*3/uL High 0.10-1.00 [facility] Comment on above: Performed By: #### L [id number] #### [facility] [address] [place] [address] Monocytes/100 WBC (Bld) 13.2 % High 5.0-12.0 [facility] Comment on above: Performed By: #### L [id number] #### [facility] ([facility]) [address] [place] [address] Neutrophils (Bld) [#/Vol] 4.87 10*3/uL Normal 1.60-7.60 [facility] Comment on above: Performed By: #### L [id number] #### [facility] ([facility]) [address] [place] [address] Neutrophils/100 WBC (Bld) 55.0 % Normal 40.0-72.0 [facility] Comment on above: Performed By: #### L [id number] #### [facility] ([facility]) [address] [place] [address] NRBC (PER 100 WBCS) BY AUTOMATED COUNT 0.0 % Normal 0 [facility] Comment on above: Performed By: #### L [id number] #### [facility] ([facility]) [address] [place] [address] PLATELETS (10*3/UL) IN BLOOD AUTOMATED COUNT 265 10*3/uL Normal 150-400 [facility] Comment on above: Performed By: #### L [id number] #### [facility] [address] [place] [address] RBC (Bld) [#/Vol] 4.44 10*6/uL Normal 3.80-5.[address] [facility] Comment on above: Performed By: #### L [id number] #### [facility] [address] [place] [address] WBC (Bld) [#/Vol] 8.85 10*3/uL Normal 4.00-10.[address] [facility] Comment on above: Performed By: #### L [id number] #### [facility] ([facility]) [address] [place] [address] COMPREHENSIVE METABOLIC PANE Macario 03-21-2024 Albumin [Mass/Vol] 3.7 g/dL Normal 3.5-5.7 [facility] Comment on above: Performed By: #### L [id number] #### [facility] ([facility]) [address] [place] [address] ALP [Catalytic activity/Vol] 55 U/L Normal 34-104 [facility] Comment on above: Performed By: #### L [id number] #### [facility] ([facility]) [address] [place] [address] ALT [Catalytic activity/Vol] 18 U/L Normal 7-52 [facility] Comment on above: Performed By: #### L [id number] #### [facility] ([facility]) [address] [place] [address] Anion gap [Moles/Vol] 14 mmol/L Normal 7-20 [facility] Comment on above: Performed By: #### L [id number] #### [facility] ([facility]) [address] [place] [address] AST [Catalytic activity/Vol] 20 U/L Normal 13-39 [facility] Comment on above: Performed By: #### L [id number] #### [facility] ([facility]) [address] [place] [address] Bilirubin [Mass/Vol] 0.4 mg/dL Normal 0.3-1.0 [facility] Comment on above: Performed By: #### L [id number] #### [facility] ([facility]) [address] [place] [address] Calcium [Mass/Vol] 9.6 mg/dL Normal 8.6-10.3 [facility] Comment on above: Performed By: #### L [id number] #### [facility] [address] [place] [address] Chloride [Moles/Vol] 108 mmol/L High 98-107 [facility] Comment on above: Performed By: #### L [id number] #### [facility] [address] [place] [address] CO2 [Moles/Vol] 21 mmol/L Normal 21-31 [facility] Comment on above: Performed By: #### L [id number] #### [facility] ([facility]) [address] [place] [address] Creatinine [Mass/Vol] 2.89 mg/dL High 0.60-1.20 [facility] Comment on above: Performed By: #### L [id number] #### [facility] ([facility]) [address] [place] [address] GLOMERULAR FILTRATION RATE ML/MIN/1.73 SQ M.PREDICTED 17.8 mL/min/1.73m*2 Low >60.0 [facility] Comment on above: Result Comment: The [facility]???s estimated glomerular filtration rate (eGFR) will no longer include consideration of race in its calculation. The National Kidney Foundation???s eGFR Task Force developed new recommendations for the estimation of the glomerular filtration rate in the [place] They recommend immediate implementation of the new equation refit without the race variable in all laboratories because the calculation does not include race. In addition to not including race in the calculation and reporting, it included diversity in its development, and has acceptable performance characteristics and potential consequences that do not disproportionately affect any one group of individuals. Performed By: #### L [id number] #### [facility] [address] [place] [address] Glucose [Mass/Vol] 194 mg/dL High 70-100 [facility] Comment on above: Performed By: #### L [id number] #### [facility] [address] [place] [address] Potassium [Moles/Vol] 3.7 mmol/L Normal 3.5-5.1 [facility] Comment on above: Performed By: #### L [id number] #### [facility] ([facility]) [address] [place] [address] Protein [Mass/Vol] 6.7 g/dL Normal 6.0-8.3 [facility] Comment on above: Performed By: #### L [id number] #### [facility]) [address] [place] [address] Sodium [Moles/Vol] 139 mmol/L Normal 136-145 [facility] Comment on above: Performed By: #### L [id number] #### [facility] ([facility]) [address] [place] [address] Urea nitrogen [Mass/Vol] 52 mg/dL High 7-25 [facility] Comment on above: Performed By: #### L [id number] #### [facility] ([facility]) [address] [place] [address] UREA NITROGEN/CREATININE (MASS RATIO) IN SER/PLAS 18.0 Normal [facility] Comment on above: Performed By: #### L [id number] #### [facility] ([facility]) [address] [place] [address] HEMOGLOBIN A1Con 03-21-2024 Glucose [Mass/Vol] 163 mg/dL Normal [facility] Comment on above: Performed By: #### L [id number] #### [facility] ([facility]) [address] [place] [address] HbA1c (Bld) [Mass fraction] 7.3 % High 4.0-6.0 [facility] Comment on above: Performed By: #### L [id number] #### [facility] ([facility]) [address] [place] [address] LIPID PANELon 03-21-2024 CHOL/HDL 4.9 mg/dL Normal [facility] Comment on above: Performed By: #### L [id number] #### [facility] [address] [facility] [place] [address] Cholesterol [Mass/Vol] 209 mg/dL High 120-200 [facility] Comment on above: Performed By: #### L [id number] #### [facility] ([facility]) [address] [place] [address] Magnesium [Mass/Vol] 294 mg/dL High 40-149 [facility] Comment on above: Result Comment: TRIG LYCERIDE REFERENCE RANGE: 20 YEARS AND OLDER CARDIOVASCULAR RISK LESS THAN 150 mg/dL LOW RISK 150 TO 199 mg/dL BORDERLINE RISK 200 mg/dL AND GREATER HIGH RISK Performed By: #### L [id number] #### [facility] ([facility]) [address] [place] [address] Magnesium [Mass/Vol] 107 mg/dL Normal 0-160 [facility] Comment on above: Performed By: #### L [id number] #### [facility] ([facility]) [address] [place] [address] Magnesium [Mass/Vol] 43 mg/dL Normal 23-92 [facility] Comment on above: Performed By: #### L [id number] #### [facility] ([facility]) [address] [place] [address] NON HDL CHOL. (LDL+VLDL) 166 Normal [facility] Comment on above: Performed By: #### L [id number] #### [facility] ([facility]) [address] [place] [address] TOTAL VLDL-C 59 mg/dL High 0-40 [facility] Comment on above: Performed By: #### L [id number] #### [facility] ([facility]) [address] [place] [address] MAGNESIUMon 03-21-2024 Magnesium [Mass/Vol] 2.0 mg/dL Normal 1.9-2.7 [facility] Comment on above: Performed By: #### L [id number] #### [facility] ([facility]) [address] [place] [address] PHOSPHORUSon 03-21-2024 Magnesium [Mass/Vol] 3.9 mg/dL Normal 2.5-5.0 [facility] Comment on above: Performed By: #### L [id number] #### [facility] ([facility]) [address] [place] [address] TACROLIMUS LEVELon Tacrolimus (Bld) [Mass/Vol] 4.0 ng/mL Low 5.0-20.0 [facility] Comment on above: Result Comment: The [employer] Tacrolimus assay is a delayed one-step immunoassay for the quantitative determination of tacrolimus in human whole blood using the chemiluminescent microparticle immunoassay (CMIA) technology with flexible assay protocols, referred to as Chemiflex. Performed By: #### L [id number] #### [facility]) [address] [place] [address] URIC ACIDon 03-21-2024 Magnesium [Mass/Vol] 3.6 mg/dL Normal 2.3-6.6 [facility] Comment on above: Performed By: #### L [id number] #### [facility] ([facility]) [address] [place] [address] Orders Onlyon 02-26-2024 Orders Only [id number] Ja Tavera 1960 F Date Provider Department [place] 02/26/2024 ESTEBAN STRATTON INF [facility] Family History Problem Relation Age of Onset Lung cancer Father Liver cancer Father Family Status - Relation Status Age at Father Normal [facility] Cardiac echo study Procedure Ordered By: Dangelo Burrows on 02-15-2024 Ao Root Index 1.86 cm/m2 [employer] Phone: Aortic Root 3.5 cm [employer] Phone: AV Area by Peak Velocity 3.7 cm2 [employer] Phone: AV Area by VTI 3.1 cm2 [employer] Phone: AV Mean Gradient 2 mmHg [employer] Work Phone: AV Mean Velocity 0.7 m/s Azam Tracyo magali [employer] Work Phone: AV Peak Gradient 3 mmHg Azam Tracyo magali [employer] Work Phone: AV Peak Velocity 0.9 m/s Azam Seco magali [employer] Work Phone: AV Velocity Ratio 1.00 Azam childers [employer] Work Phone: AV VTI 23.9 cm Azam Sierra [employer] Work Phone: JOSE/BSA Peak Velocity 2.0 cm2/m2 Azam LiquidHubalvarado [employer] Work Phone: JOSE/BSA VTI 1.6 cm2/m2 Azam [employer] Phone: Body surface area Derived from formula 1.91 m2 Azam ASCENDANT [employer] Phone: E/E' Lateral 14.76 Azam [employer] Work Phone: E/E' Ratio (Averaged) 15.51 Azam [employer] Work Phone: E/E' Septal 16.26 Azam [employer] Work Phone: EF Physician 65 % Azam [employer] Work Phone: Est. RA Pressure 3 mmHg Azam de los santos [employer] Work Phone: Fractional Shortening 2D 43 % 28 - 44 % Azam [employer] Work Phone: Interpretation and review of laboratory results Abnormal Azam [employer] Work Phone: IVC Expiration 1.1 cm Azam Jeronimo s [employer] Work Phone: IVC Inspiration 0.4 cm Azam Alas rs [employer] Work Phone: IVSd 1.1 cm Abnormal 0.6 - 0.9 cm Azam [employer] Work Phone: LA Area 2C 18.4 cm2 Azam [employer] Work Phone: LA Area 4C 16.8 cm2 [employer] Phone: LA Diameter 3.6 cm Bon [employer] Work Phone: LA Major [place] 4.7 cm Bon [employer] Phone: LA Minor [place] 5.5 cm [employer] Phone: LA Size Index 1.91 cm/m2 Bon [employer] Work Phone: LA Volume BP 49 mL 22 - 52 mL [employer] Phone: LA Volume Index BP 26 ml/m2 16 - 34 ml/m2 [employer] Phone: LA Volume Index MOD A2C 28 ml/m2 16 - 34 ml/m2 [employer] Phone: LA Volume Index MOD A4C 21 ml/m2 16 - 34 ml/m2 [employer] Phone: LA Volume MOD A2C 52 mL 22 - 52 mL Bon [facility] [employer] Phone: LA Volume MOD A4C 40 mL 22 - 52 mL [employer] Phone: LA/AO Root Ratio 1.03 Bon [facility] [employer] Phone: LV E' Lateral Velocity 3.59 cm/s [employer] Phone: LV E' Septal Velocity 3.26 cm/s [employer] Phone: LV Mass 2D 227.7 g Abnormal 67 - 162 g [employer] Phone: LV Mass 2D Index 121.1 g/m2 Abnormal 43 - 95 g/m2 Bon [facility] [employer] Phone: LV RWT Ratio 0.42 [employer] Phone: LVIDd 5.3 cm 3.9 - 5.3 cm Bon [employer] Phone: LVIDd Index 2.82 cm/m2 Bon [employer] Work Phone: LVIDs 3.0 cm Bon [employer] Phone: LVIDs Index 1.60 cm/m2 [employer] Phone: LVOT Area 3.8 cm2 Bon [employer] Work Phone: LVOT Diameter 2.2 cm [employer] Phone: LVOT Mean Gradient 2 mmHg Bon [employer] Work Phone: LVOT Peak Gradient 3 mmHg Bon [employer]mi Phone: LVOT Peak Velocity 0.9 m/s Bon [employer] Work Phone: LVOT Stroke Volume Index 39.4 mL/m2 [employer] Phone: LVOT SV 74.1 ml [employer] Phone: LVOT VTI 19.5 cm [employer] Phone: LVOT:AV VTI Index 0.82 Bon [employer] Phone: LVPWd 1.1 cm Abnormal 0.6 - 0.9 cm [employer] Phone: MV A Velocity 0.71 m/s [employer] Phone: MV E Velocity 0.53 m/s [employer] Phone: MV E Wave Deceleration Time 180.0 ms [employer] Phone: MV E/A 0.75 [employer] Phone: RV Basal Dimension 3.5 cm Bon [employer] Work Phone: RV Free Wall Peak S' 14.0 cm/s Azam [employer] Work Phone: RVSP 46 mmHg Azam Sierra [employer] Work Phone: TR Max Velocity 3.27 m/s Azam Alas rs [employer] Work Phone: TR Peak Gradient 43 mmHg Azam Tracyo urs [employer] Work Phone: Azam [employer] Work Phone: Cardiac echo study Procedure on 02-15-2024 Left Ventricle: Normal left ventricular systolic function with a visually estimated EF of 55 - 60%. Left ventricle size is normal. Mildly increased wall thickness. Findings consistent with mild concentric hypertrophy. Normal wall motion. Grade I diastolic dysfunction with normal LAP. Aortic Valve: Trileaflet valve. Mildly thickened cusps. Mild regurgitation Mitral Valve: Mildly thickened leaflets. Mild regurgitation. Tricuspid Valve: Mild to moderate regurgitation. Mildly elevated RVSP, consistent with mild pulmonary hypertension. The estimated RVSP is 46 mmHg. Interatrial Septum: PFO present visible by color Doppler. Seen best in subcostal view. Image quality is adequate. Left Ventricle Normal left ventricular systolic function with a visually estimated EF of 55 - 60%. Left ventricle size is normal. Mildly increased wall thickness. Findings consistent with mild concentric hypertrophy. Normal wall motion. Grade I diastolic dysfunction with normal LAP. Right Ventricle Right ventricle size is normal. Normal systolic function. Left Atrium Left atrium size is normal. Left atrial volume index is normal (16-34 mL/m2). LA Vol Index is 26 ml/m2. Pulmonary veins were not well visualized. Right Atrium Right atrium size is normal. IVC/SVC IVC diameter is less than or equal to 21 mm and decreases greater than 50% during inspiration; therefore the estimated right atrial pressure is normal (~3 mmHg). IVC size is normal. Mitral Valve Mildly thickened leaflets. Mild regurgitation. No stenosis noted. Tricuspid Valve Valve structure is normal. Mild to moderate regurgitation. No stenosis noted. Mildly elevated RVSP, consistent with mild pulmonary hypertension. The estimated RVSP is 46 mmHg. Aortic Valve Trileaflet valve. Mildly thickened cusps. Trace regurgitation. No stenosis. Pulmonic Valve The pulmonic valve visualization is suboptimal but appears to be functioning normally. Trace regurgitation. No stenosis noted. Ascending Aorta Normal sized aortic root and ascending aorta. Pericardium No pericardial effusion. Septum PFO present visible by color Doppler. Seen best in subcostal view. Study Details Image quality: adequate. The view(s) performed were parasternal, apical and subcostal. Heart rate was 65 bpm. Color flow Doppler was performed and pulse wave and/or continuous wave Doppler was performed. No contrast was given. Wall Scoring Baseline Score Index: 1.00 The left ventricular wall motion is normal. [facility] CV CPACS Radiology Study observation (narrative) [facility] Orders Onlyon 01-29-2024 Orders Only [id number] Ja Tavera 1960 F Date Provider Department Center 01/29/2024 1644-ESTEBAN PALOMO INF [facility] Family History Problem Relation Age of Onset Lung cancer Father Liver cancer Father Family Status - Relation Status Age at Father Normal [facility] Clinical Supporton Clinical Support [id number] Ja Tavera 1960 Provider Department Center 12/25/2023 3079-DCC ONC NURSE DCC ONC [facility] Family History Problem Relation Age of Onset Lung cancer Father Liver cancer Father Family Status - Relation Status Age at Father Normal [facility] Orders Onlyon 12-24-2023 Orders Only [id number] Ja Tavera 1960 Provider Department Center 12/24/2023 397-[facility] Family History Problem Relation Age of Onset Lung cancer Father Liver cancer Father Family Status - Relation Status Age at Father Normal [facility] Glucose (Bld) [Mass/Vol]Orde red By: Renata Fonseca on 12-15-2023 Glucose Blood, POC 203 mg/dL [facility] BILIRUBIN, DIRECTon 12-14-19 Magnesium [Mass/Vol] 0.1 mg/dL Normal 0-0.2 [facility] Comment on above: Performed By: #### L [id number] #### [facility] ([facility]) [address] [place] [address] CBC WITH AUTO DIFFERENTIALon 12-14-2023 Basophils (Bld) [#/Vol] 0.05 10*3/uL Normal 0.00-0.20 [facility] Comment on above: Performed By: #### L [id number] #### [facility] ([facility]) [address] [place] [address] Basophils/100 WBC (Bld) 0.6 % Normal 0.0-1.0 [facility] Comment on above: Performed By: #### L [id number] #### [facility] ([facility]) [address] [place] [address] Eosinophils (Bld) [#/Vol] 0.15 10*3/uL Normal 0.00-0.50 [facility] Comment on above: Performed By: #### L [id number] #### [facility] [address] [place] [address] Eosinophils/100 WBC (Bld) 1.9 % Normal 0.0-6.0 [facility] Comment on above: Performed By: #### L [id number] #### [facility] ([facility] [address] [place] [address] Erythrocyte distribution width (RBC) [Ratio] 13.6 % Normal 11.5-15.0 [facility] Comment on above: Performed By: #### L [id number] #### [facility] [address] [place] [address] ERYTHROCYTE MEAN CORPUSCULAR HEMOGLOBIN CONCENTRATION (G/DL) BY AUTOMATED 31.6 g/dL Low 32.0-35.0 [facility] Comment on above: Performed By: #### L [id number] #### [facility] ([facility] [address] [place] [address] Hematocrit (Bld) [Volume fraction] 44.3 % Normal 36.0-48.0 [facility] Comment on above: Performed By: #### L [id number] #### [facility] ([facility]) [address] [place] [address] Hemoglobin (Bld) [Mass/Vol] 14.0 g/dL Normal 12.0-15.0 [facility] Comment on above: Performed By: #### L [id number] #### [facility] [address] [place] [address] Immature granulocytes (Bld) [#/Vol] 0.04 10*3/uL Normal 0.00-0.20 [facility] Comment on above: Performed By: #### L [id number] #### [facility] [address] [place] [address] Immature granulocytes/100 WBC (Bld) 0.5 % Normal 0.0-1.0 [facility] Comment on above: Performed By: #### L [id number] #### [facility] [address] [place] [address] Lymphocytes (Bld) [#/Vol] 1.86 10*3/uL Normal 1.20-4.00 [facility] Comment on above: Performed By: #### L [id number] #### [facility] [address] [place] [address] Lymphocytes/100 WBC (Bld) 23.5 % Normal 20.0-45.0 [facility] Comment on above: Performed By: #### L [id number] #### [facility] [address] [place] [address] MCH (RBC) [Entitic mass] 27.6 pg Normal 27.0-33.0 [facility] Comment on above: Performed By: #### L [id number] #### [facility] [address] [place] [address] MCV (RBC) [Entitic vol] 87.4 fL Normal 82.0-98.0 [facility] Comment on above: Performed By: #### L [id number] #### [facility] [address] [place] [address] Monocytes (Bld) [#/Vol] 1.03 10*3/uL High 0.10-1.00 [facility] Comment on above: Performed By: #### L [id number] #### [facility] [address] [place] [address] Monocytes/100 WBC (Bld) 13.0 % High 5.0-12.0 [facility] Comment on above: Performed By: #### L [id number] #### [facility] [address] [place] [place] [address] Neutrophils (Bld) [#/Vol] 4.80 10*3/uL Normal 1.60-7.60 [facility] Comment on above: Performed By: #### L [id number] #### [facility] [address] [place] [address] Neutrophils/100 WBC (Bld) 60.5 % Normal 40.0-72.0 [facility] Comment on above: Performed By: #### L [id number] #### [facility] [address] [place] [address] NRBC (PER 100 WBCS) BY AUTOMATED COUNT 0.0 % Normal 0 [facility] Comment on above: Performed By: #### L [id number] #### [facility] [address] [place] [address] PLATELETS (10*3/UL) IN BLOOD AUTOMATED COUNT 246 10*3/uL Normal 150-400 [facility] Comment on above: Performed By: #### L [id number] #### [facility] [address] [place] [address] RBC (Bld) [#/Vol] 5.07 10*6/uL High 3.80-5.[address] [facility] Comment on above: Performed By: #### L [id number] #### [facility] ([facility]) [address] [place] [address] WBC (Bld) [#/Vol] 7.93 10*3/uL Normal 4.00-10.[address] [facility] Comment on above: Performed By: #### L [id number] #### [facility] ([facility]) [address] [place] [address] COMPREHENSIVE METABOLIC PANE Macario 12-14-2023 Albumin [Mass/Vol] 3.7 g/dL Normal 3.5-5.7 [facility] Comment on above: Performed By: #### L [id number] #### [facility] [address] [place] [address] ALP [Catalytic activity/Vol] 68 U/L Normal 34-104 [facility] Comment on above: Performed By: #### L [id number] #### [facility] [address] [place] [address] ALT [Catalytic activity/Vol] 18 U/L Normal 7-52 [facility] Comment on above: Performed By: #### L [id number] #### [facility] ([facility]) [address] [place] [address] Anion gap [Moles/Vol] 14 mmol/L Normal 7-20 [facility] Comment on above: Performed By: #### L [id number] #### [facility] ([facility]) [address] [place] [address] AST [Catalytic activity/Vol] 22 U/L Normal 13-39 [facility] Comment on above: Performed By: #### L [id number] #### [facility] ([facility]) [address] [place] [address] Bilirubin [Mass/Vol] 0.6 mg/dL Normal 0.3-1.0 [facility] Comment on above: Performed By: #### L [id number] #### [facility] ([facility] [address] [place] [address] Calcium [Mass/Vol] 9.4 mg/dL Normal 8.6-10.3 [facility] Comment on above: Performed By: #### L [id number] #### [facility] ([facility] [address] [place] [address] Chloride [Moles/Vol] 108 mmol/L High 98-107 [facility] Comment on above: Performed By: #### L [id number] #### [facility] ([facility]) [address] [place] [address] CO2 [Moles/Vol] 22 mmol/L Normal 21-31 [facility] Comment on above: Performed By: #### L [id number] #### [facility] ([facility]) [address] [place] [address] Creatinine [Mass/Vol] 2.50 mg/dL High 0.60-1.20 [facility] Comment on above: Performed By: #### L [id number] #### [facility] ([facility] [address] [place] [address] GLOMERULAR FILTRATION RATE ML/MIN/1.73 SQ M.PREDICTED 21.2 mL/min/1.73m*2 Low >60.0 [facility] Comment on above: Result Comment: [facility]???s estimated glomerular filtration rate (eGFR) will no longer include consideration of race in its calculation. The National Kidney Foundation???s eGFR Task Force developed new recommendations for the estimation of the glomerular filtration rate in the [place] They recommend immediate implementation of the new equation refit without the race variable in all laboratories because the calculation does not include race. In addition to not including race in the calculation and reporting, it included diversity in its development, and has acceptable performance characteristics and potential consequences that do not disproportionately affect any one group of individuals. Performed By: #### L [id number] #### [facility] ([facility]) [address] [place] [address] Glucose [Mass/Vol] 193 mg/dL High 70-100 [facility] Comment on above: Performed By: #### L [id number] #### [facility] ([facility]) [address] [place] [address] Potassium [Moles/Vol] 3.8 mmol/L Normal 3.5-5.1 [facility] Comment on above: Performed By: #### L [id number] #### [facility] ([facility]) [address] [place] [address] Protein [Mass/Vol] 6.7 g/dL Normal 6.0-8.3 [facility] Comment on above: Performed By: #### L [id number] #### [facility] ([facility] [employer]) [address] [place] [address] Sodium [Moles/Vol] 140 mmol/L Normal 136-145 [facility] Comment on above: Performed By: #### L [id number] #### [facility] ([employer]) [address] [place] [address] Urea nitrogen [Mass/Vol] 41 mg/dL High 7-25 [facility] Comment on above: Performed By: #### L [id number] #### [facility] [address] [place] [address] UREA NITROGEN/CREATININE (MASS RATIO) IN SER/PLAS 16.4 Normal [facility] Comment on above: Performed By: #### L [id number] #### [facility] ([facility]) [address] [place] [address] HEMOGLOBIN A1Con 12-14-2023 Glucose [Mass/Vol] 146 mg/dL Normal [facility] Comment on above: Order Comment: NO VA RIANT Performed By: #### L [id number] #### [facility] [address] [place] [address] HbA1c (Bld) [Mass fraction] 6.7 % High 4.0-6.0 [facility] Comment on above: Order Comment: NO VA RIANT Performed By: #### L [id number] #### [facility] [address] [place] [address] LIPID PANELon 12-14-2023 CHOL/HDL 4.6 mg/dL Normal [facility] Comment on above: Performed By: #### L [id number] #### [facility] [address] [place] [address] Cholesterol [Mass/Vol] 235 mg/dL High 120-200 [facility] Comment on above: Performed By: #### L [id number] #### [facility] ([facility] [address] [place] [address] Magnesium [Mass/Vol] 347 mg/dL High 40-149 [facility] Comment on above: Result Comment: TRIG LYCERIDE REFERENCE RANGE: 20 YEARS AND OLDER CARDIOVASCULAR RISK LESS THAN 150 mg/dL LOW RISK 150 TO 199 mg/dL BORDERLINE RISK 200 mg/dL AND GREATER HIGH RISK Performed By: #### L [id number] #### [facility] ([facility]) [address] [place] [address] Magnesium [Mass/Vol] 115 mg/dL Normal 0-160 [facility] Comment on above: Performed By: #### L [id number] #### [facility] [address] [place] [address] Magnesium [Mass/Vol] 51 mg/dL Normal 23-92 [facility] Comment on above: Performed By: #### L [id number] #### [facility] ([facility]) [address] [place] [address] NON HDL CHOL. (LDL+VLDL) 184 Normal [facility] Comment on above: Performed By: #### L [id number] #### [facility] ([facility]) [address] [place] [address] TOTAL VLDL-C 69 mg/dL High 0-40 [facility] Comment on above: Performed By: #### L [id number] #### [facility] ([facility]) [address] [place] [address] Labon 12-14-2023 Lab [id number] Ja Tavera 1960 F Date Provider Department Center 12/14/2023 2245-[facility] OPD LAB RESOURCE [facility] Medical C Family History Problem Relation Age of Onset Lung cancer Father Liver cancer Father Family Status - Relation Status Age at Father Normal [facility] MAGNESIUMon 12-14-2023 Magnesium [Mass/Vol] 1.8 mg/dL Low 1.9-2.7 [facility] Comment on above: Performed By: #### L [id number] #### [facility] ([facility] [address] [place] [address] PHOSPHORUSon 12-14-2023 Magnesium [Mass/Vol] 3.3 mg/dL Normal 2.5-5.0 [facility] Comment on above: Performed By: #### L [id number] #### [facility] ([facility]) [address] [place] [address] TACROLIMUS LEVELon Tacrolimus (Bld) [Mass/Vol] 4.9 ng/mL Low 5.0-20.0 [facility] Comment on above: Result Comment: The [employer] Tacrolimus assay is a delayed one-step immunoassay for the quantitative determination of tacrolimus in human whole blood using the chemiluminescent microparticle immunoassay (CMIA) technology with flexible assay protocols, referred to as Chemiflex. Performed By: #### L [id number] #### [facility] ([facility]) [address] [place] [address] URIC ACIDon 12-14-2023 Magnesium [Mass/Vol] 2.9 mg/dL Normal 2.3-6.6 [facility] Comment on above: Performed By: #### L [id number] #### [facility] ([facility]) [address] [place] [address] Infusionon 12-11-2023 Infusion [id number] Ja Tavera Rachelle 1960 F Date Provider Department [facility] 12/11/2023 2273-[facility] CHAIR 2 [facility] INF DCC Family History Problem Relation Age of Onset Lung cancer Father Liver cancer Father Family Status - Relation Status Age at Father Normal [facility] URINALYSIS MICROSCOPIC WITH REFLEX CULTUREon 12-11-2023 RBC (#/HPF) IN URINE SEDIMENT 3-5 Abnormal None Seen, 0-2 [facility] Comment on above: Performed By: #### L [id number] #### [facility] ([facility]) [address] [facility] [place] [address] SQUAMOUS EPITHELIAL CELLS (#/LPF) IN URINE SEDIMENT None Seen Normal None Seen, Occasional, Few [facility] Comment on above: Performed By: #### L [id number] #### [facility] ([facility] [address] [place] [address] WBC (LEUKOCYTE) (#/HPF) IN URINE SEDIMENT >50 Abnormal None Seen, 0-2 [facility] Comment on above: Performed By: #### L [id number] #### [facility] ([facility]) [address] [place] [address] WBC (LEUKOCYTE) CLUMPS (#/HPF) IN URINE SEDIMENT Present Abnormal None Seen [facility] Comment on above: Performed By: #### L [id number] #### [facility] ([facility]) [address] [place] [address] URINALYSIS WITH REFLEX CULTU REon 12-11-2023 BILIRUBIN, TOTAL PRESENCE IN URINE Negative Normal Negative [facility] Comment on above: Performed By: #### L [id number] #### [facility] ([facility]) [address] [place] [address] Clarity (U) Cloudy Abnormal Clear [facility] Comment on above: Performed By: #### L [id number] #### [facility] ([facility]) [address] [place] [address] Color (U) Light-Yellow Normal Colorless, Yellow, Light-Yellow [facility] Comment on above: Performed By: #### L [id number] #### [facility] ([facility]) [address] [place] [address] Glucose (U) [Mass/Vol] 70 mg/dL Abnormal Normal [facility] Comment on above: Performed By: #### L [id number] #### [facility] ([facility]) [address] [place] [address] HEMOGLOBIN PRESENCE IN URINE Small Abnormal Negative [facility] Comment on above: Performed By: #### L [id number] #### [facility] ([facility]) [address] [place] [address] Ketones Ql (U) Negative Normal Negative [facility] Comment on above: Performed By: #### L [id number] #### [facility] ([facility]) [address] [place] [address] LEUKOCYTE ESTERASE PRESENCE IN URINE BY TEST STRIP Large Abnormal Negative [facility] Comment on above: Performed By: #### L [id number] #### [facility] ([facility]) [address] [place] [address] NITRITE PRESENCE IN URINE Negative Normal Negative [facility] Comment on above: Performed By: #### L [id number] #### [facility] ([facility]) [address] [place] [address] pH (U) 7.0 [pH] Normal 5.0-8.0 [facility] Comment on above: Performed By: #### L [id number] #### [facility] ([facility]) [address] [place] [address] Protein (U) [Mass/Vol] 100 mg/dL Abnormal Negative [facility] Comment on above: Performed By: #### L [id number] #### [facility] ([facility]) [address] [place] [address] Specific gravity (U) [Rel density] 1.010 Normal 1.010-1.030 [facility] Comment on above: Performed By: #### L [id number] #### [facility] ([facility]) [address] [place] [address] UROBILINOGEN (MG/DL) IN URINE Normal Normal Normal [facility] Comment on above: Performed By: #### L [id number] #### [facility] ([facility]) [address] [place] [address] URINE CULTURE, ROUTINEon Bacteria identified Cx Nom (U) No growth at 48 hours Normal [facility] Comment on above: Performed By: #### L [id number] #### [facility] ([facility]) [address] [place] [address] Orders Onlyon 12-10-2023 Orders Only [id number] Ja Tavera 1960 F Date Provider Department [facility] 12/10/2023 [facility]AT[facility] INF DCC Family History Problem Relation Age of Onset Lung cancer Father Liver cancer Father Family Status - Relation Status Age at Father Normal [facility] Orders Only [id number] Ja Tavera 1960 F Date Provider Department Center 12/10/2023 263-[facility] TXP None Family History Problem Relation Age of Onset Lung cancer Father Liver cancer Father Family Status - Relation Status Age at Father Normal [facility] Orders Onlyon 12-04-2023 Orders Only [id number] Ja Tavera 1960 F Date Provider Department Center 12/04/2023 1644-[facility] PALOMO DCC INF DCC Family History Problem Relation Age of Onset Lung cancer Father Liver cancer Father Family Status - Relation Status Age at Father Normal [facility] Basic Metab w/rfx MGon 11-15 Anion gap [Moles/Vol] 12 mmol/L Normal 9-16 [facility] Comment on above: Performed By: #### DANIELLE Luong, HEPXA #### [facility] [address] [place] [address] Area Secretary: Gabe Freedman MD Calcium [Mass/Vol] 9.0 mg/dL Normal 8.6-10.4 [facility] Comment on above: Performed By: #### Rian Aaron BMP, HEPXA #### [facility] [address] [place] [address] Area Secretary: Gabe Freedman MD Chloride [Moles/Vol] 108 mmol/L High 98-107 [facility] Comment on above: Performed By: #### Rian Aaron BMP, HEPXA #### [facility] [address] [place] [address] Area Secretary: Gabe Freedman MD CO2 [Moles/Vol] 18 mmol/L Low 20-31 [facility] Comment on above: Performed By: #### Rian Aaron BMP, HEPXA #### [facility] [address] [place] [address] Area Secretary: Gabe Freedman MD Creatinine [Mass/Vol] 2.5 mg/dL High 0.50-0.90 [facility] Comment on above: Performed By: #### DANIELLE Luong, HEPXA #### [facility] [address] [place] [address] Area Secretary: Gabe Freedman MD GFR/1.73 sq M.predicted among non-blacks MDRD (S/P/Bld) [Vol rate/Area] 21 mL/min/{1.73_m2} Low >60 [facility] Comment on above: Result Comment: These results are not intended for use in patients <18 years of age. eGFR results are calculated without a race factor using the 2020 CKD-EPI equation. Careful clinical correlation is recommended, particularly when comparing to results calculated using previous equations. The CKD-EPI equation is less accurate in patients with extremes of muscle mass, extra-renal metabolism of creatine, excessive creatine ingestion, or following therapy that affects renal tubular secretion. Performed By: #### DANIELLE Luong, HEPXA #### [facility] [address] [place] [address] Area Secretary: Gabe Freedman MD Glucose [Mass/Vol] 150 mg/dL High 74-99 [facility] Comment on above: Performed By: #### DANIELLE Luong, HEPXA #### [facility] [address] [place] [address] Area Secretary: Gabe Freedman MD Potassium [Moles/Vol] 3.9 mmol/L Normal 3.7-5.3 [facility] Comment on above: Performed By: #### DANIELLE Luong, HEPXA #### [facility] [address] [place] [address] Area Secretary: Gabe Freedman MD Sodium [Moles/Vol] 138 mmol/L Normal 136-145 [facility] Comment on above: Performed By: #### DANIELLE Luong, HEPXA #### [facility] [address] [place] [address] [phone] Area Secretary: Gabe Freedman MD Urea nitrogen [Mass/Vol] 32 mg/dL High 8-23 [facility] Comment on above: Performed By: #### M G, DANIELLE, HEPXA #### [facility] [address] [place], [place] [phone] Area Secretary: Gabe Freedman MD Basic Metabolic Panel w/ Ref pedro to MGon 11-16-2023 Anion gap [Moles/Vol] 12 mmol/L 9 - 16 mmol/L [facility] Calcium [Mass/Vol] 9.0 mg/dL 8.6 - 10. 4 mg/dL [facility] Chloride [Moles/Vol] 108 mmol/L High 98 - 10 7 mmol/L [facility] CO2 [Moles/Vol] 18 mmol/L Low 20 - 31 mmol/L [facility] Creatinine [Mass/Vol] 2.5 mg/dL High 0.50 - 0.90 mg/dL [facility] [employer] Est, Glom Filt Rate 21 Low - [facility] Glucose [Mass/Vol] 150 mg/dL High 74 - 99 mg/dL [facility] Interpretation and review of laboratory results Abnormal [facility] Potassium [Moles/Vol] 3.9 mmol/L 3.7 - 5.3 mmol/L [facility] Sodium [Moles/Vol] 138 mmol/L 136 - 145 mmol/L [facility] Urea nitrogen [Mass/Vol] 32 mg/dL High 8 - 23 mg/dL [facility] Glucose,Whole Bloodon 2023 Glucose [Mass/Vol] 204 mg/dL High 65-105 [facility] Glucose [Mass/Vol] 160 mg/dL High 65-105 [facility] POC Glucose Fingerstickon Glucose [Mass/Vol] 204 mg/dL High 65 - 105 mg/dL [facility] Interpretation and review of laboratory results Abnormal [facility] Glucose [Mass/Vol] 160 mg/dL High 65 - 105 mg/dL [facility] Interpretation and review of laboratory results Abnormal [facility] Basic Metabolic Panelon 10-25 Est, Glom Filt Rate 21 Low - [facility] Interpretation and review of laboratory results Abnormal [facility] Basic Metabolic Profon 11-14 Anion gap [Moles/Vol] 10 mmol/L Normal 9-16 [facility] Comment on above: Performed By: #### B MP ####[facility] [address] [place] [address] Lab Director: Gabe Freedman MD Calcium [Mass/Vol] 8.8 mg/dL Normal 8.6-10.4 [facility] Comment on above: Performed By: #### B MP ####[facility] [address] [place] [address] Lab Director: Gabe Freedman MD Chloride [Moles/Vol] 107 mmol/L Normal 98-107 [facility] Comment on above: Performed By: #### B MP ####[facility] [address] [place] [address] Lab Director: Gabe Freedman MD CO2 [Moles/Vol] 21 mmol/L Normal 20-31 [facility] Comment on above: Performed By: #### B MP ####[facility] [address] [place] [address] Lab Director: Gabe Freedman MD Creatinine [Mass/Vol] 2.5 mg/dL High 0.50-0.90 [facility] Comment on above: Performed By: #### B MP ####[facility] [address] [place] [address] Lab Director: Gabe Freedman MD Glucose [Mass/Vol] 168 mg/dL High 74-99 [facility] Comment on above: Performed By: #### B MP ####[facility] [address] [place] [address] Lab Director: Gabe Freedman MD Potassium [Moles/Vol] 4.2 mmol/L Normal 3.7-5.3 [facility] Comment on above: Performed By: #### B MP ####[facility] [address] [place] [address] Lab Director: Gabe Freedman MD Sodium [Moles/Vol] 138 mmol/L Normal 136-145 [facility] Comment on above: Performed By: #### B MP ####[facility] [address] [place] [address] Lab Director: Gabe Freedman MD Urea nitrogen [Mass/Vol] 32 mg/dL High 8-23 [facility] Comment on above: Performed By: #### B MP ####[place] [address] [place] [address] Lab Director: Gabe Freedman MD GFR/1.73 sq M.predicted among non-blacks MDRD (S/P/Bld) [Vol rate/Area] 21 mL/min/{1.73_m2} Low >60 [facility] Comment on above: Result Comment: These results are not intended for use in patients <18 years of age. eGFR results are calculated without a race factor using the 2020 CKD-EPI equation. Careful clinical correlation is recommended, particularly when comparing to results calculated using previous equations. The CKD-EPI equation is less accurate in patients with extremes of muscle mass, extra-renal metabolism of creatine, excessive creatine ingestion, or following therapy that affects renal tubular secretion. Performed By: #### B MP ####[facility] [address] [place] [address] Lab Director: Gabe Freedman MD Glucose,Whole Bloodon 2023 Glucose [Mass/Vol] 229 mg/dL High 65-105 [facility] Glucose [Mass/Vol] 348 mg/dL High 65-105 [facility] Glucose [Mass/Vol] 216 mg/dL High 65-105 [facility] Glucose [Mass/Vol] 153 mg/dL High 65-105 [facility] Inf Dis Interventionon 11-14 Intervention: De-escalation Normal [facility] Comment on above: Performed By: #### I DINV ####[facility] [address] [place] [address] lab Director: Gabe Freedman MD Infectious Disease Intervent ionon 11-15-2023 Intervention De-escalation [facility] Glucose Fingerstickon Glucose [Mass/Vol] 229 mg/dL High 65 - 105 mg/dL [facility] Interpretation and review of laboratory results Abnormal [facility] Glucose [Mass/Vol] 348 mg/dL High 65 - 105 mg/dL [facility] Interpretation and review of laboratory results Abnormal [facility] Glucose [Mass/Vol] 216 mg/dL High 65 - 105 mg/dL [facility] Interpretation and review of laboratory results Abnormal [facility] Glucose [Mass/Vol] 153 mg/dL High 65 - 105 mg/dL [facility] Interpretation and review of laboratory results Abnormal [facility] Anti-Xa, Unfractionated Hepa rinon 11-14-2023 Anti-XA Unfrac Heparin >2.00 IU/L [facility] Basic Metabolic Panelon 10-25 Anion gap [Moles/Vol] 11 mmol/L 9 - 16 mmol/L [facility] Calcium [Mass/Vol] 8.9 mg/dL 8.6 - 10. 4 mg/dL [facility] Chloride [Moles/Vol] 107 mmol/L 98 - 10 7 mmol/L [facility] CO2 [Moles/Vol] 23 mmol/L 20 - 31 mmol/L [facility] Creatinine [Mass/Vol] 2.8 mg/dL High 0.50 - 0.90 mg/dL [facility] Est, Glom Filt Rate 19 Low - [facility] Glucose [Mass/Vol] 220 mg/dL High 74 - 99 mg/dL [facility] Interpretation and review of laboratory results Abnormal [facility] Potassium [Moles/Vol] 4.4 mmol/L 3.7 - 5.3 mmol/L [facility] Sodium [Moles/Vol] 141 mmol/L 136 - 145 mmol/L [facility] Urea nitrogen [Mass/Vol] 31 mg/dL High 8 - 23 mg/dL [facility] Basic Metabolic Profon 11-13 Anion gap [Moles/Vol] 11 mmol/L Normal 9-16 [facility] Comment on above: Performed By: #### M Galen, BMP, HEPXA #### [facility] [address] [place] [address] Area Secretary: Gabe Freedman MD Calcium [Mass/Vol] 8.9 mg/dL Normal 8.6-10.4 [facility] Comment on above: Performed By: #### M G, BMP, HEPXA #### [employer] [address] [place] [address] Area Secretary: Gabe Freedman MD Chloride [Moles/Vol] 107 mmol/L Normal 98-107 [facility] Comment on above: Performed By: #### M G, BMP, HEPXA #### [employer] [address] [place] [address] Area Secretary: Gabe Freedman MD CO2 [Moles/Vol] 23 mmol/L Normal 20-31 [facility] Comment on above: Performed By: #### M G, BMP, HEPXA #### [employer] [address] [place] [address] Area Secretary: Gabe Freedman MD Creatinine [Mass/Vol] 2.8 mg/dL High 0.50-0.90 [facility] Comment on above: Performed By: #### M G, BMP, HEPXA #### [facility] [address] [place] [address] Area Secretary: Gabe Freedman MD GFR/1.73 sq M.predicted among non-blacks MDRD (S/P/Bld) [Vol rate/Area] 19 mL/min/{1.73_m2} Low >60 [facility] Comment on above: Result Comment: These results are not intended for use in patients <18 years of age. eGFR results are calculated without a race factor using the 2020 CKD-EPI equation. Careful clinical correlation is recommended, particularly when comparing to results calculated using previous equations. The CKD-EPI equation is less accurate in patients with extremes of muscle mass, extra-renal metabolism of creatine, excessive creatine ingestion, or following therapy that affects renal tubular secretion. Performed By: #### DANIELLE Luong, HEPXA #### [facility] [address] [place] [address] Area Secretary: Gabe Freedman MD Glucose [Mass/Vol] 220 mg/dL High 74-99 [facility] Comment on above: Performed By: #### DANIELLE Luong, HEPXA #### [facility] [address] [place] [address] Area Secretary: Gabe Freedman MD Potassium [Moles/Vol] 4.4 mmol/L Normal 3.7-5.3 [facility] Comment on above: Performed By: #### DANIELLE Luong, HEPXA #### [facility] [address] [place] [address] Area Secretary: Gabe Freedman MD Sodium [Moles/Vol] 141 mmol/L Normal 136-145 [facility] Comment on above: Performed By: #### Rian Aaron BMP, HEPXA #### [facility] [address] [place] [address] Area Secretary: Gabe Freedman MD Urea nitrogen [Mass/Vol] 31 mg/dL High 8-23 [facility] Comment on above: Performed By: #### M G, BMP, HEPXA #### [facility] [address] [place], [place] [id number] Area Secretary: Gabe Freedman MD Cult, Bloodon 11-14-2023 Cult, Blood Specimen Description .BLOOD Special Requests R HAND 6ML Culture NO GROWTH 5 DAYS Report Status FINAL 11/14/2023 Normal [facility] Comment on above: Performed By: #### B CUL2 ####[facility] [id number] [place], [place] [id number] Lab Director: Gabe Freedman MD Cult,Bloodon 11-14-2023 Cult,Blood Specimen Description .BLOOD Special Requests R ARM 1ML Culture NO GROWTH 5 DAYS Report Status FINAL 11/14/2023 Normal [facility] Comment on above: Performed By: #### H EPXA #### [facility] [place], [place] [id number] Area Secretary: Gabe Freedman MD Culture, Blood 1on 4 Microorganism identified Cx Nom (Unsp spec) NO GROWTH 5 DAYS [facility] [employer] Service comment (Unsp spec) [Interp] R ARM 1ML burrp! Specimen Description .BLOOD [facility] [employer] [facility] Culture, Blood 2on 4 Microorganism identified Cx Nom (Unsp spec) NO GROWTH 5 DAYS [facility] [employer] Service comment (Unsp spec) [Interp] R HAND 6ML O[facility] Specimen Description .BLOOD [facility] [employer] [facility] [employer] [facility] Glucose,Whole Bloodon 2023 Glucose [Mass/Vol] 272 mg/dL High 65-105 [facility] Glucose [Mass/Vol] 305 mg/dL High 65-105 [facility] Glucose [Mass/Vol] 275 mg/dL High 65-105 [facility] Glucose [Mass/Vol] 176 mg/dL High 65-105 [facility] Heparin Anti-Xaon 11-14-2023 Heparin Anti-Xa >2.00 Normal [facility] Comment on above: Result Comment: This test has not been validated or calibrated for therapies other than unfractionated heparin. Interpretation of the result in relation to other therapies must be done with caution and within clinical context. Performed By: #### M G, DANIELLE, HEPXA #### [facility] [address] [place] [address] Area Secretary: Gabe Freedman MD POC Glucose Fingerstickon Glucose [Mass/Vol] 272 mg/dL High 65 - 105 mg/dL [facility] Interpretation and review of laboratory results Abnormal [facility] Glucose [Mass/Vol] 305 mg/dL High 65 - 105 mg/dL [facility] Interpretation and review of laboratory results Abnormal [facility] Glucose [Mass/Vol] 275 mg/dL High 65 - 105 mg/dL [facility] [employer] Interpretation and review of laboratory results Abnormal [facility] Glucose [Mass/Vol] 176 mg/dL High 65 - 105 mg/dL [facility] [employer] Interpretation and review of laboratory results Abnormal [facility] [employer] [facility] Prografon 11-14-2023 Prograf 4.7 ng/mL Normal [facility] Comment on above: Result Comment: (NOT E) Therapeutic Range: Kidney transplant: 0-3 months post-transplant: 7.0-20.0 ng/mL 3 months and older: 5.0-15.0 ng/mL Liver transplant: 1-12 months post-transplant: 5-20 ng/mL Heart transplant: 0-3 months post-transplant: 10.0-20.0 ng/mL 3 months and older: 5.0-15.0 ng/mL Toxic value: Greater than 25 ng/mL Therapeutic range is based on a whole blood specimen drawn 12 hours post-dose or prior to next dose (the trough). The optimal therapeutic range for a given patient may differ from this suggested range based on the indication for therapy, treatment phase (initiation or maintenance), use in combination with other drugs, time of specimen collection relative to prior dose, type of transplanted organ, and/or the therapeutic approach of the transplant center. This test was developed and its performance characteristics determined by [facility]. It has not been cleared or approved by the [place] Food and Drug Administration. This test was performed in a CLIA certified laboratory and is intended for clinical purposes. Performed By: [facility] [address] [place] [address] [employer] Referee: Young Lopez MD, PhD CLIA Number: [id number] Performed By: #### M G, BMP, HEPXA #### [facility] [address] [place] [address] Area Secretary: Gabe Freedman MD Tacrolimus Levelon Tacrolimus (Bld) [Mass/Vol] 4.7 ng/mL [facility] Anti-Xa, Unfractionated Hepa rinon 11-13-2023 Anti-XA Unfrac Heparin >2.00 IU/L [facility] Basic Metabolic Panelon 10-25 Anion gap [Moles/Vol] 11 mmol/L 9 - 16 mmol/L [facility] Calcium [Mass/Vol] 8.0 mg/dL Low 8.6 - 10. 4 mg/dL [facility] Chloride [Moles/Vol] 103 mmol/L 98 - 10 7 mmol/L [facility] CO2 [Moles/Vol] 23 mmol/L 20 - 31 mmol/L [facility] Creatinine [Mass/Vol] 2.8 mg/dL High 0.50 - 0.90 mg/dL [facility] Est, Glom Filt Rate 18 Low - [facility] Glucose [Mass/Vol] 185 mg/dL High 74 - 99 mg/dL [facility] Interpretation and review of laboratory results Abnormal [facility] Potassium [Moles/Vol] 4.0 mmol/L 3.7 - 5.3 mmol/L [facility] Sodium [Moles/Vol] 137 mmol/L 136 - 145 mmol/L [facility] Urea nitrogen [Mass/Vol] 26 mg/dL High 8 - 23 mg/dL [facility] Basic Metabolic Profon 11-12 Anion gap [Moles/Vol] 11 mmol/L Normal 9-16 [facility] Comment on above: Performed By: #### M G, BMP, HEPXA #### [facility] [address] [place] [address] Area Secretary: Gabe Freedman MD Calcium [Mass/Vol] 8.0 mg/dL Low 8.6-10.4 [facility] Comment on above: Performed By: #### M G, BMP, HEPXA #### [facility] [address] [place] [address] Area Secretary: Gabe Freedman MD Chloride [Moles/Vol] 103 mmol/L Normal 98-107 [facility] Comment on above: Performed By: #### M G, BMP, HEPXA #### [facility] [address] [place] [address] Area Secretary: Gabe Freedman MD CO2 [Moles/Vol] 23 mmol/L Normal 20-31 [facility] Comment on above: Performed By: #### M G, BMP, HEPXA #### [facility] [address] [place] [address] Area Secretary: Gabe Freedman MD Creatinine [Mass/Vol] 2.8 mg/dL High 0.50-0.90 [facility] Comment on above: Performed By: #### M G, BMP, HEPXA #### [facility] [address] [place] [address] Area Secretary: Gabe Freedman MD GFR/1.73 sq M.predicted among non-blacks MDRD (S/P/Bld) [Vol rate/Area] 18 mL/min/{1.73_m2} Low >60 [facility] Comment on above: Result Comment: These results are not intended for use in patients <18 years of age. eGFR results are calculated without a race factor using the 2020 CKD-EPI equation. Careful clinical correlation is recommended, particularly when comparing to results calculated using previous equations. The CKD-EPI equation is less accurate in patients with extremes of muscle mass, extra-renal metabolism of creatine, excessive creatine ingestion, or following therapy that affects renal tubular secretion. Performed By: #### DANIELLE Luong, HEPXA #### [facility] [address] [place] [address] Area Secretary: Gabe Freedman MD Glucose [Mass/Vol] 185 mg/dL High 74-99 [facility] Comment on above: Performed By: #### DANIELLE Luong, HEPXA #### [facility] [address] [place] [address] Area Secretary: Gabe Freedman MD Potassium [Moles/Vol] 4.0 mmol/L Normal 3.7-5.3 [facility] Comment on above: Performed By: #### DANIELLE Luong, HEPXA #### [facility] [address] [place] [address] Area Secretary: Gabe Freedman MD Sodium [Moles/Vol] 137 mmol/L Normal 136-145 [facility] Comment on above: Performed By: #### DANIELLE Luong, HEPXA #### [facility] [address] [place] [address] Area Secretary: Gabe Freedman MD Urea nitrogen [Mass/Vol] 26 mg/dL High 8-23 [facility] Comment on above: Performed By: #### DANIELLE Luong, HEPXA #### [facility] [address] [place] [address]65 Area Secretary: Gabe Freedman MD Glucose,Whole Bloodon 2023 Glucose [Mass/Vol] 270 mg/dL High 65-105 [facility] Glucose [Mass/Vol] 286 mg/dL High 65-105 [facility] Glucose [Mass/Vol] 276 mg/dL High 65-105 [facility] Glucose [Mass/Vol] 139 mg/dL High 65-105 [facility] Heparin Anti-Xaon 11-13-2023 Heparin Anti-Xa >2.00 Normal [facility] Comment on above: Result Comment: This test has not been validated or calibrated for therapies other than unfractionated heparin. Interpretation of the result in relation to other therapies must be done with caution and within clinical context. Performed By: #### DANIELLE Luong, HEPXA #### [facility] [address] [place], [place] [phone] Area Secretary: Gabe Freedman MD Magnesiumon 11-13-2023 Magnesium [Mass/Vol] 2.0 mg/dL 1.6 - 2 .4 mg/dL [facility] Magnesium [Mass/Vol] 2.0 mg/dL Normal 1.6-2.4 [facility] Comment on above: Performed By: #### DANIELLE Luong, HEPXA #### [facility] [address] [place], [place] [id number] Area Secretary: Gabe Freedman MD No Panel Informationon 11-12 [facility] POC Glucose Fingerstickon Glucose [Mass/Vol] 270 mg/dL High 65 - 105 mg/dL [facility] Interpretation and review of laboratory results Abnormal [facility] Glucose [Mass/Vol] 286 mg/dL High 65 - 105 mg/dL [facility] Interpretation and review of laboratory results Abnormal [facility] Glucose [Mass/Vol] 276 mg/dL High 65 - 105 mg/dL [facility] Interpretation and review of laboratory results Abnormal [facility] Glucose [Mass/Vol] 139 mg/dL High 65 - 105 mg/dL [facility] Interpretation and review of laboratory results Abnormal [facility] Anti-Xa, Unfractionated Hepa rinon 11-12-2023 Anti-XA Unfrac Heparin 0.39 IU/L [facility] Basic Metabolic Panelon 10-24 Est, Glom Filt Rate 16 Low - [facility] Interpretation and review of laboratory results Abnormal [facility] Basic Metabolic Profon 11-11 Anion gap [Moles/Vol] 15 mmol/L Normal 9-16 [facility] Comment on above: Performed By: #### DANIELLE Luong, HEPXA #### [facility] [address] [place] [address] Area Secretary: Gabe Freedman MD Calcium [Mass/Vol] 7.9 mg/dL Low 8.6-10.4 [facility] Comment on above: Performed By: #### M DANIELLE Aaron, HEPXA #### [facility] [address] [place] [address] Area Secretary: Gabe Freedman MD Chloride [Moles/Vol] 106 mmol/L Normal 98-107 [facility] Comment on above: Performed By: #### DANIELLE Luong, HEPXA #### [facility] [address] [place] [address]86 Area Secretary: Gabe Freedman MD CO2 [Moles/Vol] 17 mmol/L Low 20-31 [facility] Comment on above: Performed By: #### DANIELLE Luong, HEPXA #### [facility] [address] [place] [address] Area Secretary: Gabe Freedman MD Creatinine [Mass/Vol] 3.2 mg/dL High 0.50-0.90 [facility] Comment on above: Performed By: #### DANIELLE Luong, HEPXA #### [facility] [address] [place] [address] Area Secretary: Gabe Freedman MD Glucose [Mass/Vol] 232 mg/dL High 74-99 [facility] Comment on above: Performed By: #### DANIELLE Luong, HEPXA #### [facility] [address] [place] [address] Area Secretary: Gabe Freedman MD Potassium [Moles/Vol] 4.0 mmol/L Normal 3.7-5.3 [facility] Comment on above: Performed By: #### M DANIELLE Aaron, HEPXA #### [facility] [address] [place] [address] Area Secretary: Gabe Freedman MD Sodium [Moles/Vol] 138 mmol/L Normal 136-145 [facility] Comment on above: Performed By: #### M DANIELLE Aaron, HEPXA #### [facility] [place] [address] Area Secretary: Gabe Freedman MD Urea nitrogen [Mass/Vol] 27 mg/dL High 8-23 [facility] Comment on above: Performed By: #### DANIELLE Luong HEPXA #### [facility] [address] [place] [address]67 Area Secretary: Gabe Freedman MD GFR/1.73 sq M.predicted among non-blacks MDRD (S/P/Bld) [Vol rate/Area] 16 mL/min/{1.73_m2} Low >60 [facility] Comment on above: Result Comment: These results are not intended for use in patients <18 years of age. eGFR results are calculated without a race factor using the 2020 CKD-EPI equation. Careful clinical correlation is recommended, particularly when comparing to results calculated using previous equations. The CKD-EPI equation is less accurate in patients with extremes of muscle mass, extra-renal metabolism of creatine, excessive creatine ingestion, or following therapy that affects renal tubular secretion. Performed By: #### DANIELLE Luong, HEPXA #### [facility] [address] [place] [address] Area Secretary: Gabe Freedman MD CBC with Auto Differentialon 11-12-2023 Basophils (Bld) [#/Vol] [facility] Basophils/100 WBC (Bld) 0 % 0 - 2 % [facility] Eosinophils (Bld) [#/Vol] 0.13 10*3/uL [facility] Eosinophils/100 WBC (Bld) 1 % 1 - 4 % [facility] Erythrocyte distribution width (RBC) [Ratio] 13.8 % 11.8 - 14.4 % [facility] Hematocrit (Bld) [Volume fraction] 36.3 % 36.3 - 47.1 % [facility] Hemoglobin (Bld) [Mass/Vol] 11.0 g/dL Low 11.9 - 15.1 g/dL [facility] Immature granulocytes (Bld) [#/Vol] 0.05 10*3/uL [facility] Immature granulocytes/100 WBC (Bld) 1 % High 0 [facility] Interpretation and review of laboratory results Abnormal [facility] Lymphocytes/100 WBC (Bld) 16 % Low 24 - 43 % [facility] Lymphocytes/100 WBC (Bld) 1.55 % [facility] MCH (RBC) [Entitic mass] 28.1 pg 25.2 - 33.5 pg [facility] MCHC (RBC) [Mass/Vol] 30.3 g/dL 28.4 - 34.8 g/dL [facility] MCV (RBC) [Entitic vol] 92.8 fL 82.6 - 102.9 fL [facility] Monocytes/100 WBC (Bld) 12 % 3 - 12 % [facility] Monocytes/100 WBC (Bld) 1.15 % [facility] Neutrophils/100 WBC (Bld) 70 % High 36 - 65 % [facility] Nucleated RBC/100 WBC (Bld) [Ratio] 0.0 % 0.0 per 100 WBC [facility] Platelet mean volume (Bld) [Entitic vol] 11.7 fL 8.1 - 13.5 fL [facility] Platelets (Bld) [#/Vol] 89 10*3/uL Low [facility] RBC (Bld) [#/Vol] 3.91 10*6/uL Low 3.95 - 5.1 1 m/uL [facility] Segmented neutrophils/100 WBC (Bld) 6.72 % [facility] WBC other (Bld) [#/Vol] 9.6 [facility] CBC with Diffon 11-12-2023 Abs. Basophil <0.03 Normal 0.00-0.20 [facility] Comment on above: Performed By: #### M G, BMP, HEPXA #### [address] [address] Area Secretary: Gabe Freedman MD Abs.Imm.Granulocyte 0.05 k/uL Normal 0.00-0.30 [facility] Comment on above: Performed By: #### M G, BMP, HEPXA #### [place] [address] Area Secretary: Gabe Freedman MD Abs.Neutrophil (Seg) 6.72 k/uL Normal 1.50-8.10 [facility] Comment on above: Performed By: #### Rian Aaron, BMP, HEPXA #### [address] [address] Area Secretary: Gabe Freedman MD Basophils/100 WBC (Bld) 0 % Normal 0-2 [facility] Comment on above: Performed By: #### Rian Aaron, BMP, HEPXA #### [address] [address] Area Secretary: Gabe Freedman MD Eosinophils (Bld) [#/Vol] 0.13 10*3/uL Normal 0.00-0.44 [facility] Comment on above: Performed By: #### M G, BMP, HEPXA #### [address] [address] Area Secretary: Gabe Freedman MD Eosinophils/100 WBC (Bld) 1 % Normal 1-4 [facility] Comment on above: Performed By: #### M G, BMP, HEPXA #### [facility] [address] [place] [address] Area Secretary: Gabe Freedman MD Erythrocyte distribution width (RBC) [Ratio] 13.8 % Normal 11.8-14.4 [facility] Comment on above: Performed By: #### M Galen, BMP, HEPXA #### [facility] [address] [place] [address] Area Secretary: Gabe Freedman MD Hematocrit (Bld) [Volume fraction] 36.3 % Normal 36.3-47.1 [facility] Comment on above: Performed By: #### M Galen, BMP, HEPXA #### [facility] [address] [place] [address] Area Secretary: Gabe Freedman MD Hemoglobin (Bld) [Mass/Vol] 11.0 g/dL Low 11.9-15.1 [facility] Comment on above: Performed By: #### Rian Aaron BMP, HEPXA #### [facility] [address] [place] [address] Area Secretary: Gabe Freedman MD Immature granulocytes/100 WBC (Bld) 1 % High 0 [facility] Comment on above: Performed By: #### Rian Aaron, BMP, HEPXA #### [address] [address] Area Secretary: Gabe Freedman MD Lymphocytes (Bld) [#/Vol] 1.55 10*3/uL Normal 1.10-3.70 [facility] Comment on above: Performed By: #### DANIELLE Luong, HEPXA #### [facility] [address] [place] [address] Area Secretary: Gabe Freedman MD Lymphocytes/100 WBC (Bld) 16 % Low 24-43 [facility] Comment on above: Performed By: #### Rian Aaron, BMP, HEPXA #### [facility] [address] [place] [address] Area Secretary: Gabe Freedman MD MCH (RBC) [Entitic mass] 28.1 pg Normal 25.2-33.5 [facility] Comment on above: Performed By: #### M G, BMP, HEPXA #### [address] [address] Area Secretary: Gabe Freedman MD MCHC (RBC) [Mass/Vol] 30.3 g/dL Normal 28.4-34.8 [facility] Comment on above: Performed By: #### M G, BMP, HEPXA #### [address] [address] Area Secretary: Gabe Freedman MD MCV (RBC) [Entitic vol] 92.8 fL Normal 82.6-102.9 [facility] Comment on above: Performed By: #### M G, BMP, HEPXA #### [address] [address] Area Secretary: Gabe Freedman MD Monocytes (Bld) [#/Vol] 1.15 10*3/uL Normal 0.10-1.20 [facility] Comment on above: Performed By: #### M G, BMP, HEPXA #### [address] [address] Area Secretary: Gabe Freedman MD Monocytes/100 WBC (Bld) 12 % Normal 3-12 [facility] Comment on above: Performed By: #### M G, BMP, HEPXA #### [address] [address] Area Secretary: Gabe Freedman MD Neutrophil (Seg) 70 % High 36-65 [facility] Comment on above: Performed By: #### M G, BMP, HEPXA #### [address] [address] Area Secretary: Gabe Freedman MD NRBC Automated 0.0 per 100 WBC Normal 0.0 [facility] Comment on above: Performed By: #### M G, BMP, HEPXA #### [facility] [address] [place] [address], [place] [address] Area Secretary: Gabe Freedman MD Platelet mean volume (Bld) [Entitic vol] 11.7 fL Normal 8.1-13.5 [facility] Comment on above: Performed By: #### M G, BMP, HEPXA #### [facility] [address] [place] [address] Area Secretary: Gabe Freedman MD Platelets (Bld) [#/Vol] 89 10*3/uL Low 138-453 [facility] Comment on above: Performed By: #### M G, BMP, HEPXA #### [facility] [address] [place] [address] Area Secretary: Gabe Freedman MD RBC (Bld) [#/Vol] 3.91 10*6/uL Low 3.95-5.11 [facility] Comment on above: Performed By: #### M G, BMP, HEPXA #### [facility] [address] [place] [address] Area Secretary: Gabe Freedman MD WBC (Bld) [#/Vol] 9.6 10*3/uL Normal 3.5-11.3 [facility] Comment on above: Performed By: #### M G, BMP, HEPXA #### [address] [address] Area Secretary: Gabe Freedman MD Glucose,Whole Bloodon 2023 Glucose [Mass/Vol] 358 mg/dL High 65-105 [facility] Glucose [Mass/Vol] 311 mg/dL High 65-105 [facility] Glucose [Mass/Vol] 178 mg/dL High 65-105 [facility] Glucose [Mass/Vol] 197 mg/dL High 65-105 [facility] Heparin Anti-Xaon 11-12-2023 Heparin Anti-Xa 0.39 IU/L Normal [facility] Comment on above: Result Comment: This test has not been validated or calibrated for therapies other than unfractionated heparin. Interpretation of the result in relation to other therapies must be done with caution and within clinical context. Performed By: #### DANIELLE Luong, HEPXA #### [facility] [address] [place], [place] [id number] Area Secretary: Gabe Freedman MD Magnesiumon 11-12-2023 Magnesium [Mass/Vol] 2.0 mg/dL 1.6 - 2 .4 mg/dL [facility] Magnesium [Mass/Vol] 2.0 mg/dL Normal 1.6-2.4 [facility] Comment on above: Performed By: #### DANIELLE Luong, HEPXA #### [facility] [address] [place], [place] [id number] Area Secretary: Gabe Freedman MD Orders Onlyon 11-12-2023 Orders Only [id number] Ja Tavera 1960 F Date Provider Department Center 11/12/2023 [facility] INF DCC Family History Problem Relation Age of Onset Lung cancer Father Liver cancer Father Family Status - Relation Status Age at Father Normal [facility] POC Glucose Fingerstickon Glucose [Mass/Vol] 358 mg/dL High 65 - 105 mg/dL [facility] Interpretation and review of laboratory results Abnormal [facility] Glucose [Mass/Vol] 311 mg/dL High 65 - 105 mg/dL [facility] Interpretation and review of laboratory results Abnormal [facility] Glucose [Mass/Vol] 178 mg/dL High 65 - 105 mg/dL [facility] Interpretation and review of laboratory results Abnormal [facility] Glucose [Mass/Vol] 197 mg/dL High 65 - 105 mg/dL [facility] Interpretation and review of laboratory results Abnormal [facility] Anti-Xa, Unfractionated Hepa rinon 11-11-2023 Anti-XA Unfrac Heparin 0.52 IU/L [facility] Anti-XA Unfrac Heparin 0.55 IU/L [facility] Anti-XA Unfrac Heparin 0.80 IU/L [facility] Basic Metab w/rfx MGon 11-10 Anion gap [Moles/Vol] 10 mmol/L Normal 9-16 [facility] [facility] Comment on above: Performed By: #### B MPX, MG ####[facility] [address] [place], [place] [address])[phone] Director: Gabe Freedman MD Calcium [Mass/Vol] 7.6 mg/dL Low 8.6-10.4 [facility] Comment on above: Performed By: #### B MPX, MG ####[facility] [address] [place], [place] [address])[phone] Director: Gabe Freedman MD Chloride [Moles/Vol] 108 mmol/L High 98-107 [facility] Comment on above: Performed By: #### B MPX, MG ####[facility] [address] [place] [address] Lab Director: Gabe Freedman MD CO2 [Moles/Vol] 20 mmol/L Normal 20-31 [facility] Comment on above: Performed By: #### B MPX, MG ####[facility] [address] [place] [address] Lab Director: Gabe Freedman MD Creatinine [Mass/Vol] 3.4 mg/dL High 0.50-0.90 [facility] Comment on above: Performed By: #### B MPX, MG ####[facility] [address] [place] [address] Lab Director: Gabe Freedman MD GFR/1.73 sq M.predicted among non-blacks MDRD (S/P/Bld) [Vol rate/Area] 15 mL/min/{1.73_m2} Low >60 [facility] Comment on above: Result Comment: These results are not intended for use in patients <18 years of age. eGFR results are calculated without a race factor using the 2020 CKD-EPI equation. Careful clinical correlation is recommended, particularly when comparing to results calculated using previous equations. The CKD-EPI equation is less accurate in patients with extremes of muscle mass, extra-renal metabolism of creatine, excessive creatine ingestion, or following therapy that affects renal tubular secretion. Performed By: #### B MPX, MG ####[facility] [address] [place], [place] [address])[phone] Director: Gabe Freedman MD Glucose [Mass/Vol] 257 mg/dL High 74-99 [facility] Comment on above: Performed By: #### B MPX, MG ####[facility] [address] [place] [address])[phone] Director: Gabe Freedman MD Potassium [Moles/Vol] 4.3 mmol/L Normal 3.7-5.3 [facility] Comment on above: Performed By: #### B MPX, MG ####[facility] [address] [place] [address])[phone] Director: Gabe Freedman MD Sodium [Moles/Vol] 138 mmol/L Normal 136-145 [facility] Comment on above: Performed By: #### B MPX, MG ####[facility] [address] [place], [place] [phone])[phone] Director: Gabe Freedman MD Urea nitrogen [Mass/Vol] 30 mg/dL High 8-23 [facility] Comment on above: Performed By: #### B MPX, MG ####[facility] [address] [place], [place] [id number])[phone] Director: Gabe Freedman MD Basic Metabolic Panel w/ Ref pedro to MGon 11-11-2023 Anion gap [Moles/Vol] 10 mmol/L 9 - 16 mmol/L [facility] Calcium [Mass/Vol] 7.6 mg/dL Low 8.6 - 10. 4 mg/dL [facility] Chloride [Moles/Vol] 108 mmol/L High 98 - 10 7 mmol/L [facility] CO2 [Moles/Vol] 20 mmol/L 20 - 31 mmol/L [facility] Creatinine [Mass/Vol] 3.4 mg/dL High 0.50 - 0.90 mg/dL [facility] Est, Glom Filt Rate 15 Low - [facility] Glucose [Mass/Vol] 257 mg/dL High 74 - 99 mg/dL [facility] Interpretation and review of laboratory results Abnormal [facility] Potassium [Moles/Vol] 4.3 mmol/L 3.7 - 5.3 mmol/L [facility] Sodium [Moles/Vol] 138 mmol/L 136 - 145 mmol/L [facility] Urea nitrogen [Mass/Vol] 30 mg/dL High 8 - 23 mg/dL [facility] CBC with Auto Differentialon 11-11-2023 Basophils (Bld) [#/Vol] 0.05 10*3/uL [facility] Basophils/100 WBC (Bld) 0 % 0 - 2 % [facility] Eosinophils (Bld) [#/Vol] 0.06 10*3/uL [facility] Eosinophils/100 WBC (Bld) 1 % 1 - 4 % [facility] Erythrocyte distribution width (RBC) [Ratio] 14.1 % 11.8 - 14.4 % [facility] Hematocrit (Bld) [Volume fraction] 39.1 % 36.3 - 47.1 % [facility] Hemoglobin (Bld) [Mass/Vol] 12.1 g/dL 11.9 - 15.1 g/dL [facility] Immature granulocytes (Bld) [#/Vol] 0.08 10*3/uL [facility] Immature granulocytes/100 WBC (Bld) 1 % High 0 [facility] Interpretation and review of laboratory results Abnormal [facility] Lymphocytes/100 WBC (Bld) 14 % Low 24 - 43 % [facility] Lymphocytes/100 WBC (Bld) 1.56 % [facility] MCH (RBC) [Entitic mass] 27.6 pg 25.2 - 33.5 pg [facility] MCHC (RBC) [Mass/Vol] 30.9 g/dL 28.4 - 34.8 g/dL [facility] MCV (RBC) [Entitic vol] 89.3 fL 82.6 - 102.9 fL [facility] Monocytes/100 WBC (Bld) 13 % High 3 - 12 % [facility] Monocytes/100 WBC (Bld) 1.40 % High [facility] Neutrophils/100 WBC (Bld) 72 % High 36 - 65 % [facility] Nucleated RBC/100 WBC (Bld) [Ratio] 0.0 % 0.0 per 100 WBC [facility] Platelet mean volume (Bld) [Entitic vol] 11.5 fL 8.1 - 13.5 fL [facility] Platelets (Bld) [#/Vol] 91 10*3/uL Low [facility] RBC (Bld) [#/Vol] 4.38 10*6/uL 3.95 - 5.1 1 m/uL [facility] Segmented neutrophils/100 WBC (Bld) 8.00 % [facility] WBC other (Bld) [#/Vol] 11.2 [facility] CBC with Diffon 11-11-2023 Abs. Basophil 0.05 k/uL Normal 0.00-0.20 [facility] Comment on above: Performed By: #### H EPXA, CDP ####[facility] [address] [place], [place] [id number] Lab Director: Gabe Freedman MD Abs.Imm.Granulocyte 0.08 k/uL Normal 0.00-0.30 [facility] Comment on above: Performed By: #### H EPXA, CDP ####[facility] [address] [place], [place] [phone] Lab Director: Gabe Freedman MD Abs.Neutrophil (Seg) 8.00 k/uL Normal 1.50-8.10 [facility] Comment on above: Performed By: #### H EPXA, CDP ####[address] [address] Lab Director: Gabe Freedman MD Basophils/100 WBC (Bld) 0 % Normal 0-2 [facility] Comment on above: Performed By: #### H EPXA, CDP ####[facility] [address] [place] [address])[phone] Director: Gabe Freedman MD Eosinophils (Bld) [#/Vol] 0.06 10*3/uL Normal 0.00-0.44 [facility] Comment on above: Performed By: #### H EPXA, CDP ####[address] [address])[phone] Director: Gabe Freedman MD Eosinophils/100 WBC (Bld) 1 % Normal 1-4 [facility] Comment on above: Performed By: #### H EPXA, CDP ####[address] [address])[phone] Director: Gabe Freedman MD Erythrocyte distribution width (RBC) [Ratio] 14.1 % Normal 11.8-14.4 [facility] Comment on above: Performed By: #### H EPXA, CDP ####[address] [address])[phone] Director: Gabe Freedman MD Hematocrit (Bld) [Volume fraction] 39.1 % Normal 36.3-47.1 [facility] Comment on above: Performed By: #### H EPXA, CDP ####[facility] [address] [place], [place] [address])[phone] Director: Gabe Freedman MD Hemoglobin (Bld) [Mass/Vol] 12.1 g/dL Normal 11.9-15.1 [facility] Comment on above: Performed By: #### H EPXA, CDP ####[facility] [address] [place] [address] Lab Director: Gabe Freedman MD Immature granulocytes/100 WBC (Bld) 1 % High 0 [facility] Comment on above: Performed By: #### H EPXA, CDP ####[facility] [address] [place] [address] [id number])[phone] Director: Gabe Freedman MD Lymphocytes (Bld) [#/Vol] 1.56 10*3/uL Normal 1.10-3.70 [facility] Comment on above: Performed By: #### H EPXA, CDP ####[facility] [address] [place] [address] [phone])[phone] Director: Gabe Freedman MD Lymphocytes/100 WBC (Bld) 14 % Low 24-43 [facility] Comment on above: Performed By: #### H EPXA, CDP ####[facility] [address] [place] [address] [id number])[phone] Director: Gabe Freedman MD MCH (RBC) [Entitic mass] 27.6 pg Normal 25.2-33.5 [facility] Comment on above: Performed By: #### H EPXA, CDP ####[facility] [address] [place] [address] [phone] Director: Gabe Freedman MD MCHC (RBC) [Mass/Vol] 30.9 g/dL Normal 28.4-34.8 [facility] Comment on above: Performed By: #### H EPXA, CDP ####[facility] Rlgrwavfmswo2646 [place], [place] [phone])[phone] Director: Gabe Freedman MD MCV (RBC) [Entitic vol] 89.3 fL Normal 82.6-102.9 [facility] Comment on above: Performed By: #### H EPXA, CDP ####[facility] [address] [place], [place] [phone])[phone] Director: Gabe Freedman MD Monocytes (Bld) [#/Vol] 1.40 10*3/uL High 0.10-1.20 [facility] Comment on above: Performed By: #### H EPXA, CDP ####[facility] [address] [place] [address] [phone] Director: Gabe Freedman MD Monocytes/100 WBC (Bld) 13 % High 3-12 [facility] Comment on above: Performed By: #### H EPXA, CDP ####[address] [id number])[phone] Director: Gabe Freedman MD Neutrophil (Seg) 72 % High 36-65 [facility] Comment on above: Performed By: #### H EPXA, CDP ####[facility] [address] [place] [address] [phone])[phone] Director: Gabe Freedman MD NRBC Automated 0.0 per 100 WBC Normal 0.0 [facility] Comment on above: Performed By: #### H EPXA, CDP ####[facility] [address] [place] [address] [id number])[phone] Director: Gabe Freedman MD Platelet mean volume (Bld) [Entitic vol] 11.5 fL Normal 8.1-13.5 [facility] Comment on above: Performed By: #### H EPXA, CDP ####[facility] [address] [place], [place] [phone])[phone] Director: Gabe Freedman MD Platelets (Bld) [#/Vol] 91 10*3/uL Low 138-453 [facility] Comment on above: Performed By: #### H EPXA, CDP ####[facility] [address] [place], [place] [phone] Director: Gabe Freedman MD RBC (Bld) [#/Vol] 4.38 10*6/uL Normal 3.95-5.11 [facility] Comment on above: Performed By: #### H EPXA, CDP ####[facility] [address] [place] [address] Lab Director: Gabe Freedman MD WBC (Bld) [#/Vol] 11.2 10*3/uL Normal 3.5-11.3 [facility] Comment on above: Performed By: #### H EPXA, CDP ####[facility] [address] [place] [address] Lab Director: Gabe Freedman MD Glucose,Whole Bloodon 2023 Glucose [Mass/Vol] 280 mg/dL High 65-105 [facility] Glucose [Mass/Vol] 247 mg/dL High 65-105 [facility] Glucose [Mass/Vol] 282 mg/dL High 65-105 [facility] Glucose [Mass/Vol] 189 mg/dL High 65-105 [facility] Heparin Anti-Xaon 11-11-2023 Heparin Anti-Xa 0.52 IU/L Normal [facility] Comment on above: Result Comment: This test has not been validated or calibrated for therapies other than unfractionated heparin. Interpretation of the result in relation to other therapies must be done with caution and within clinical context. Performed By: #### H EPXA #### [facility] [address] [place] [address] Area Secretary: Gabe Freedman MD Heparin Anti-Xa 0.55 IU/L Normal [facility] Comment on above: Result Comment: This test has not been validated or calibrated for therapies other than unfractionated heparin. Interpretation of the result in relation to other therapies must be done with caution and within clinical context. Performed By: #### H EPXA ####[facility] [address] [place] [address] Lab Director: Gabe Freedman MD Heparin Anti-Xa 0.80 IU/L Normal [facility] Comment on above: Result Comment: This test has not been validated or calibrated for therapies other than unfractionated heparin. Interpretation of the result in relation to other therapies must be done with caution and within clinical context. Performed By: #### H EPXA, CDP ####[facility] [address] [place], [place] [phone] lab Director: Gabe Freedman MD Magnesiumon 11-11-2023 Magnesium [Mass/Vol] 2.0 mg/dL 1.6 - 2 .4 mg/dL [facility] Magnesium [Mass/Vol] 2.0 mg/dL Normal 1.6-2.4 [facility] Comment on above: Performed By: #### B MPX, MG ####[facility] [address] [place], [place] [id number] lab Director: Gabe Freedman MD No Panel Informationon 11-10 [facility] POC Glucose Fingerstickon Glucose [Mass/Vol] 280 mg/dL High 65 - 105 mg/dL [facility] Interpretation and review of laboratory results Abnormal [facility] Glucose [Mass/Vol] 247 mg/dL High 65 - 105 mg/dL [facility] Interpretation and review of laboratory results Abnormal [facility] Glucose [Mass/Vol] 282 mg/dL High 65 - 105 mg/dL [facility] Interpretation and review of laboratory results Abnormal [facility] Glucose [Mass/Vol] 189 mg/dL High 65 - 105 mg/dL [facility] Interpretation and review of laboratory results Abnormal [facility] Prot. Electrophoresis, Uron 11-11-2023 Pathologist Review: ELECTRONICALLY SIGNED. FROYLAN VARNER M.D. [facility] Comment on above: Performed By: #### U PE ####[facility] [address] [place], [place] [phone] lab Director: Gabe Freedman MD Ur.-Prot.Elect-Inter Elevated protein concentration. Most serum proteins are detected in this urine. Normal [facility] Comment on above: Result Comment: Dmitry rushing observed with markedly increased nonselective glomerular permaeabilty (severe glomerular disease) and/or contamination of urine with blood. A decrease in tubular function cannot be ruled out. Performed By: #### U PE ####[facility] [address] [place], [place] [id number] Lab Director: Gabe Freedman MD Protein Electrophoresis, Uri neon 11-11-2023 P E Interpretation, U Elevated protein concentration. Most serum proteins are detected in this urine. Usually observed with markedly increased nonselective glomerular permaeabilty (severe glomerular disease) and/or contamination of urine with blood. A decrease in tubular function cannot be ruled out. [facility] Pathologist ELECTRONICALLY SIGNED. FROYLAN VARNER M.D. [facility] Protein (U) [Mass/Vol] 474 mg/dL [facility] Specimen type Nom (Spec) .URINE [facility] Anti-Xa, Unfractionated Hepa rinon 11-10-2023 Anti-XA Unfrac Heparin 0.47 IU/L [facility] Basic Metab w/rfx MGon 11-09 Anion gap [Moles/Vol] 11 mmol/L Normal 9-16 [facility] Comment on above: Performed By: #### M G BMP, HEPXA #### [facility] [address] [place] [address] Area Secretary: Gabe Freedman MD Calcium [Mass/Vol] 8.3 mg/dL Low 8.6-10.4 [facility] Comment on above: Performed By: #### M G, BMP, HEPXA #### [facility] [address] [place] [address] Area Secretary: Gabe Freedman MD Chloride [Moles/Vol] 109 mmol/L High 98-107 [facility] Comment on above: Performed By: #### M DANIELLE Aaron, HEPXA #### [facility] [address] [place] [address] Area Secretary: Gabe Freedman MD CO2 [Moles/Vol] 19 mmol/L Low 20-31 [facility] Comment on above: Performed By: #### M DANIELLE Aaron, HEPXA #### [facility] [address] [place] [address] Area Secretary: Gabe Freedman MD Creatinine [Mass/Vol] 3.5 mg/dL High 0.50-0.90 [facility] Comment on above: Performed By: #### M DANIELLE Aaron, HEPXA #### [facility] [address] [place] [address] Area Secretary: Gabe Freedman MD GFR/1.73 sq M.predicted among non-blacks MDRD (S/P/Bld) [Vol rate/Area] 14 mL/min/{1.73_m2} Low >60 [facility] Comment on above: Result Comment: These results are not intended for use in patients <18 years of age. eGFR results are calculated without a race factor using the 2020 CKD-EPI equation. Careful clinical correlation is recommended, particularly when comparing to results calculated using previous equations. The CKD-EPI equation is less accurate in patients with extremes of muscle mass, extra-renal metabolism of creatine, excessive creatine ingestion, or following therapy that affects renal tubular secretion. Performed By: #### M DANIELLE Aaron, HEPXA #### [facility] [address] [place] [address] Area Secretary: Gabe Freedman MD Glucose [Mass/Vol] 64 mg/dL Low 74-99 [facility] Comment on above: Performed By: #### M DANIELLE Aaron, HEPXA #### [facility] [address] [place] [address] Area Secretary: Gabe Freedman MD Potassium [Moles/Vol] 3.7 mmol/L Normal 3.7-5.3 [facility] Comment on above: Performed By: #### DANIELLE Luong, HEPXA #### [facility] [address] [place], [place] [phone] Area Secretary: Gabe Freedman MD Sodium [Moles/Vol] 139 mmol/L Normal 136-145 [facility] Comment on above: Performed By: #### DANIELLE Luong, HEPXA #### [facility] [address] [place], [place] [id number] Area Secretary: Gabe Freedman MD Urea nitrogen [Mass/Vol] 28 mg/dL High 8-23 [facility] Comment on above: Performed By: #### DANIELLE Luong, HEPXA #### [facility] [address] [place] [address] [phone] Area Secretary: Gabe Freedman MD Basic Metabolic Panel w/ Ref pedro to MGon 11-10-2023 Anion gap [Moles/Vol] 11 mmol/L 9 - 16 mmol/L [facility] Calcium [Mass/Vol] 8.3 mg/dL Low 8.6 - 10. 4 mg/dL [facility] Chloride [Moles/Vol] 109 mmol/L High 98 - 10 7 mmol/L [facility] CO2 [Moles/Vol] 19 mmol/L Low 20 - 31 mmol/L [facility] Creatinine [Mass/Vol] 3.5 mg/dL High 0.50 - 0.90 mg/dL [facility] Est, Glom Filt Rate 14 Low - [facility] Glucose [Mass/Vol] 64 mg/dL Low 74 - 99 mg/dL [facility] Interpretation and review of laboratory results Abnormal [facility] Potassium [Moles/Vol] 3.7 mmol/L 3.7 - 5.3 mmol/L [facility] Sodium [Moles/Vol] 139 mmol/L 136 - 145 mmol/L [facility] Urea nitrogen [Mass/Vol] 28 mg/dL High 8 - 23 mg/dL [facility] CBC with Auto Differentialon 11-10-2023 Basophils (Bld) [#/Vol] 0.07 10*3/uL [facility] Basophils/100 WBC (Bld) 1 % 0 - 2 % [facility] Eosinophils (Bld) [#/Vol] 0.20 10*3/uL [facility] Eosinophils/100 WBC (Bld) 2 % 1 - 4 % [facility] Erythrocyte distribution width (RBC) [Ratio] 14.1 % 11.8 - 14.4 % [facility] Hematocrit (Bld) [Volume fraction] 44.9 % 36.3 - 47.1 % [facility] Hemoglobin (Bld) [Mass/Vol] 14.2 g/dL 11.9 - 15.1 g/dL [facility] Immature granulocytes (Bld) [#/Vol] 0.07 10*3/uL [facility] Immature granulocytes/100 WBC (Bld) 1 % High 0 [facility] Interpretation and review of laboratory results Abnormal [facility] Lymphocytes/100 WBC (Bld) 20 % Low 24 - 43 % [facility] Lymphocytes/100 WBC (Bld) 1.98 % [facility] MCH (RBC) [Entitic mass] 27.7 pg 25.2 - 33.5 pg [facility] MCHC (RBC) [Mass/Vol] 31.6 g/dL 28.4 - 34.8 g/dL [facility] MCV (RBC) [Entitic vol] 87.5 fL 82.6 - 102.9 fL [facility] Monocytes/100 WBC (Bld) 13 % High 3 - 12 % [facility] Monocytes/100 WBC (Bld) 1.25 % High [facility] Neutrophils/100 WBC (Bld) 64 % 36 - 65 % [facility] Nucleated RBC/100 WBC (Bld) [Ratio] 0.0 % 0.0 per 100 WBC [facility] Platelet, Fluorescence 98 Low [facility] Platelets (Bld) [#/Vol] See Reflexed IPF Result [facility] Platelets reticulated/100 platelets Auto (Bld) 4.2 % 1.1 - 10.3 % [facility] RBC (Bld) [#/Vol] 5.13 10*6/uL High 3.95 - 5.1 1 m/uL [facility] Segmented neutrophils/100 WBC (Bld) 6.25 % [facility] WBC other (Bld) [#/Vol] 9.8 [facility] CBC with Diffon 11-10-2023 Platelet, Fluoresc. 98 k/uL Low 138-453 [facility] Comment on above: Performed By: #### M G, BMP, HEPXA #### [facility] [address] [place] [address] Area Secretary: Gabe Freedman MD PLT, Immature Fract. 4.2 % Normal 1.1-10.3 [facility] Comment on above: Performed By: #### M G, BMP, HEPXA #### [facility] [address] [place] [address] Area Secretary: Gabe Freedman MD Abs. Basophil 0.07 k/uL Normal 0.00-0.20 [facility] Comment on above: Performed By: #### M G, BMP, HEPXA #### [facility] [address] [place] [address] Area Secretary: Gabe Freedman MD Abs.Imm.Granulocyte 0.07 k/uL Normal 0.00-0.30 [facility] Comment on above: Performed By: #### M G, BMP, HEPXA #### [facility] [address] [place] [address] Area Secretary: Gabe Freedman MD Abs.Neutrophil (Seg) 6.25 k/uL Normal 1.50-8.10 [facility] Comment on above: Performed By: #### M G, BMP, HEPXA #### [facility] [address] [place] [address] Area Secretary: Gabe Freedman MD Basophils/100 WBC (Bld) 1 % Normal 0-2 [facility] Comment on above: Performed By: #### M G, BMP, HEPXA #### [facility] [address] [place] [address] Area Secretary: Gabe Freedman MD Eosinophils (Bld) [#/Vol] 0.20 10*3/uL Normal 0.00-0.44 [facility] Comment on above: Performed By: #### M G, BMP, HEPXA #### [facility] [address] [place] [address] Area Secretary: Gabe Freedman MD Eosinophils/100 WBC (Bld) 2 % Normal 1-4 [facility] Comment on above: Performed By: #### M G, BMP, HEPXA #### [facility] [address] [place] [address] Area Secretary: Gabe Freedman MD Erythrocyte distribution width (RBC) [Ratio] 14.1 % Normal 11.8-14.4 [facility] Comment on above: Performed By: #### M G, BMP, HEPXA #### [facility] [address] [place] [address] Area Secretary: Gabe Freedman MD Hematocrit (Bld) [Volume fraction] 44.9 % Normal 36.3-47.1 [facility] Comment on above: Performed By: #### M G, BMP, HEPXA #### [facility] [address] [place] [address] Area Secretary: Gabe Freedman MD Hemoglobin (Bld) [Mass/Vol] 14.2 g/dL Normal 11.9-15.1 [facility] Comment on above: Performed By: #### M G, BMP, HEPXA #### [facility] [address] [place] [address] Area Secretary: Gabe Freedman MD Immature granulocytes/100 WBC (Bld) 1 % High 0 [facility] Comment on above: Performed By: #### M Galen, BMP, HEPXA #### [facility] [address] [place] [address] Area Secretary: Gabe Freedman MD Lymphocytes (Bld) [#/Vol] 1.98 10*3/uL Normal 1.10-3.70 [facility] Comment on above: Performed By: #### M G, BMP, HEPXA #### [facility] [address] [place] [address] Area Secretary: Gabe Freedman MD Lymphocytes/100 WBC (Bld) 20 % Low 24-43 [facility] Comment on above: Performed By: #### Rian Aaron, BMP, HEPXA #### [address] [address] Area Secretary: Gabe Freedman MD MCH (RBC) [Entitic mass] 27.7 pg Normal 25.2-33.5 [facility] Comment on above: Performed By: #### Rian Aaron, DANIELLE, HEPXA #### [facility] [address] [place] [address] Area Secretary: Gabe Freedman MD MCHC (RBC) [Mass/Vol] 31.6 g/dL Normal 28.4-34.8 [facility] Comment on above: Performed By: #### M Galen, BMP, HEPXA #### [facility] [address] [place] [address] Area Secretary: Gabe Freedman MD MCV (RBC) [Entitic vol] 87.5 fL Normal 82.6-102.9 [facility] Comment on above: Performed By: #### M G, BMP, HEPXA #### [facility] [address] [place] [address] Area Secretary: Gabe Freedman MD Monocytes (Bld) [#/Vol] 1.25 10*3/uL High 0.10-1.20 [facility] Comment on above: Performed By: #### M Galen, BMP, HEPXA #### [facility] [address] [place] [address] Area Secretary: Gabe Freedman MD Monocytes/100 WBC (Bld) 13 % High 3-12 [facility] Comment on above: Performed By: #### M G, BMP, HEPXA #### [facility] [address] [place] [address] Area Secretary: Gabe Freedman MD Neutrophil (Seg) 64 % Normal 36-65 [facility] Comment on above: Performed By: #### Rian Aaron, BMP, HEPXA #### [facility] [address] [place] [address] Area Secretary: Gabe Freedman MD NRBC Automated 0.0 per 100 WBC Normal 0.0 [facility] Comment on above: Performed By: #### Rian Aaron, BMP, HEPXA #### [facility] [address] [place] [address] Area Secretary: Gabe Freedman MD Platelet Count See Reflexed IPF Result Normal 138-453 [facility] Comment on above: Performed By: #### Rian Aaron, BMP, HEPXA #### [address] [address] Area Secretary: Gabe Freedman MD RBC (Bld) [#/Vol] 5.13 10*6/uL High 3.95-5.11 [facility] Comment on above: Performed By: #### M Galen, BMP, HEPXA #### [facility] [address] [place] [address] Area Secretary: Gabe Freedman MD WBC (Bld) [#/Vol] 9.8 10*3/uL Normal 3.5-11.3 [facility] Comment on above: Performed By: #### M G, BMP, HEPXA #### [facility] [address] [place] [address] Area Secretary: Gabe Freedman MD Cath hemo interfaceon 2023 Body surface area Derived from formula 1.89 m2 [facility] Electrophoresis Protein, Ser umon 11-10-2023 Albumin % 54 % 45 - 65 % [facility] Albumin [Mass/Vol] 3.6 g/dL 3.2 - 5.2 g/dL [facility] Alpha 1 globulin Elph [Mass/Vol] 0.5 g/dL High 0.1 - 0.4 g/dL [facility] Alpha 1 globulin Elph [Mass/Vol] 7 % High 3 - 6 % [facility] Alpha 2 % 13 % 6 - 13 % [facility] Alpha 2 globulin Elph [Mass/Vol] 0.9 g/dL 0.5 - 0.9 g/dL [facility] Beta globulin Elph [Mass/Vol] 0.8 g/dL 0.5 - 1.1 g/dL [facility] Beta globulin Elph [Mass/Vol] 12 % 11 - 19 % [facility] Gamma Globulin % 14 % 9 - 20 % [facility] Gamma globulin Elph [Mass/Vol] 0.9 g/dL 0.5 - 1.5 g/dL [facility] Interpretation and review of laboratory results Abnormal [facility] Pathologist Cyto stain Nom (Cvx/Vag) [ID] ELECTRONICALLY SIGNED. ANNE LIN M.D. [facility] Protein [Mass/Vol] 6.7 g/dL 6.6 - 8.7 g/dL [facility] Protein Fractions [Interp] Normal electrophoretic pattern. [facility] Total Prot. Sum 6.7 g/dL 6.3 - 8.2 g/dL [facility] Total Prot. Sum,% 100 % 98 - 102 % [facility] Free [place] + Lambdaon 2023 Free [place] Lt Chains 60.5 mg/L High <20.8 [facility] Comment on above: Result Comment: Perf ormed using Diazyme reagent on Marvin Anup Pro. Results obtained with different assay methods cannot be used interchangeably. Performed By: #### F KLLC ####[facility] [address] [place] [address] Lab Director: Gabe Freedman MD Free [place]/Lambda Rat 1.06 Normal 0.22-1.74 [facility] Comment on above: Performed By: #### F KLLC ####[facility] [address] [place], [place] [id number] lab Director: Gabe Freedman MD Free Lambda Lt Chains 57.2 mg/L High 4.2-27.7 [facility] Comment on above: Result Comment: Perf ormed using Diazyme reagent on Marvin Anup Pro. Results obtained with different assay methods cannot be used interchangeably. Performed By: #### F KLLC ####[address] [address] Lab Director: Gabe Freedman MD Glucose,Whole Bloodon 2023 Glucose [Mass/Vol] 188 mg/dL High 65-105 [facility] Glucose [Mass/Vol] 154 mg/dL High 65-105 [facility] Glucose [Mass/Vol] 118 mg/dL High 65-105 [facility] Glucose [Mass/Vol] 92 mg/dL Normal 65-105 [facility] Glucose [Mass/Vol] 96 mg/dL Normal 65-105 [facility] Glucose [Mass/Vol] 49 mg/dL Low 65-105 [facility] Comment on above: Result Comment: Gunnar griffin Noted Glucose [Mass/Vol] 117 mg/dL High 65-105 [facility] Heparin Anti-Xaon 11-10-2023 Heparin Anti-Xa 0.47 IU/L Normal [facility] Comment on above: Result Comment: This test has not been validated or calibrated for therapies other than unfractionated heparin. Interpretation of the result in relation to other therapies must be done with caution and within clinical context. Performed By: #### M G, BMP, HEPXA #### [facility] [address] [place], [place] [phone] Area Secretary: Gabe Freedman MD [place]/Lambda Quantitative Fr ee Light Chains, Serumon 11-10-2023 Free [place]/Lambda Ratio 1.06 0.22 - 1.74 [facility] Immunoglobulin light chains.kappa.free (S) [Mass/Vol] 60.5 mg/L High NINF - 20.8 mg/L [facility] Immunoglobulin light chains.lambda.free [Mass/Vol] 57.2 mg/L High 4.2 - 27.7 mg/L [facility] Interpretation and review of laboratory results Abnormal [facility] MRSA DNA Probe, Nasalon 10-24 MRSA, DNA, Nasal Negative NEGATIVE [facility] Specimen Description .NASAL SWAB [facility] MRSA, DNA, Nasalon MRSA, DNA, Nasal Negative Normal NEG [facility] Comment on above: Result Comment: NEGA TIVE: MRSA DNA not detected by nucleic acid amplification. Results should be used as an adjunct to nosocomial control efforts to identify patients needing enhanced precautions. The test is not intended to identify patients with staphylococcal infections. Results should not be used to guide or monitor treatment for MRSA infections. Performed By: #### M RSANO ####[facility] [id number] [place], [place] [id number] Lab Director: Gabe Freedman MD Magnesiumon 11-10-2023 Magnesium [Mass/Vol] 1.9 mg/dL 1.6 - 2 .4 mg/dL [facility] Magnesium [Mass/Vol] 1.9 mg/dL Normal 1.6-2.4 [facility] Comment on above: Performed By: #### C DP, BMPX, HEPXA, MG ####[employer] [address] [place], [place] [id number] Lab Director: Gabe Freedman MD No Panel Informationon 11-09 [facility] POC Glucose Fingerstickon Glucose [Mass/Vol] 188 mg/dL High 65 - 105 mg/dL [facility] Interpretation and review of laboratory results Abnormal [facility] Glucose [Mass/Vol] 154 mg/dL High 65 - 105 mg/dL [facility] Interpretation and review of laboratory results Abnormal [facility] Glucose [Mass/Vol] 118 mg/dL High 65 - 105 mg/dL [facility] Interpretation and review of laboratory results Abnormal [facility] Glucose [Mass/Vol] 92 mg/dL 65 - 105 mg/dL [facility] Glucose [Mass/Vol] 96 mg/dL 65 - 105 mg/dL [facility] Glucose [Mass/Vol] 49 mg/dL Low 65 - 105 mg/dL [facility] Interpretation and review of laboratory results Abnormal [facility] Glucose [Mass/Vol] 117 mg/dL High 65 - 105 mg/dL [facility] Interpretation and review of laboratory results Abnormal [facility] Prot. Electroph, Blon 2023 Pathologist Review: ELECTRONICALLY SIGNED. ANNE LIN M.D. Normal [facility] Comment on above: Performed By: #### P E ####[employer] [address] [place] [address] lab Director: Gabe Freedman MD Albumin [Mass/Vol] 3.6 g/dL Normal 3.2-5.2 [facility] Comment on above: Performed By: #### P E ####[employer] [address] [place], [place] [id number] lab Director: Gabe Freedman MD Albumin, % 54 % Normal 45-65 [facility] Comment on above: Performed By: #### P E ####[facility] [address] [place] [address] Lab Director: Gabe Freedman MD Eunzm-6-dymannvsn 0.5 g/dL High 0.1-0.4 [facility] Comment on above: Performed By: #### P E ####[facility] [place] [address] Lab Director: Gabe Freedman MD Rcpev-3-krjnxjxnt,% 7 % High 3-6 [facility] Comment on above: Performed By: #### P E ####[address] [place] [address] Lab Director: Gabe Freedman MD Tgxwy-6-kxchtlgvk 0.9 g/dL Normal 0.5-0.9 [facility] Comment on above: Performed By: #### P E ####[address] [phone] Director: Gabe Freedman MD Rpvjz-1-pvskyszmb,% 13 % Normal 6-13 [facility] Comment on above: Performed By: #### P E ####[facility] [place] [address] [phone] Director: Gabe Freedman MD Beta-globulins 0.8 g/dL Normal 0.5-1.1 [facility] Comment on above: Performed By: #### P E ####[facility] [place] [address] [phone] Director: Gabe Freedman MD Beta-globulins,% 12 % Normal 11-19 [facility] Comment on above: Performed By: #### P E ####[facility] [place] [address] [phone] Director: Gabe Freedman MD Gamma-globulins 0.9 g/dL Normal 0.5-1.5 [facility] Comment on above: Performed By: #### P E ####[facility] [place], [place] [phone] Director: Gabe Freedman MD Gamma-globulins,% 14 % Normal 9-20 [facility] Comment on above: Performed By: #### P E ####[facility] [place], [place] [phone] Director: Gabe Freedman MD Prot. Elect-Interp Normal electrophoretic pattern. Normal [facility] Comment on above: Performed By: #### P E ####[address] [place], [place] [phone] Director: Gabe Freedman MD Total Prot. Sum 6.7 g/dL Normal 6.3-8.2 [facility] Comment on above: Performed By: #### P E ####[address] [phone] Director: Gabe Freedman MD Total Prot. Sum,% 100 % Normal 98-102 [facility] Comment on above: Performed By: #### P E ####[facility] [place] [address] Lab Director: Gabe Freedman MD Protein [Mass/Vol] 6.7 g/dL Normal 6.6-8.7 [facility] Comment on above: Performed By: #### P E ####[address] [phone] Director: Gabe Freedman MD Vascular duplex lower extrem ity venous bilateralon 11-10-2023 Body surface area Derived from formula 1.89 m2 [facility] CV CPACS [facility] Vascular duplex mesenteric a rteryon 11-10-2023 Ao prox PSV 134.0 cm/s [facility] Body surface area Derived from formula 1.89 m2 [facility] Celiac EDV 18.7 cm/s [facility] Celiac PSV 90.6 cm/s [facility] Common Hepatic EDV 28.6 cm/s [facility] Common Hepatic PSV 152.0 cm/s [facility] Dist SMA EDV 0.0 cm/s [facility] Dist SMA PSV 40.1 cm/s [facility] JC EDV 11.9 cm/s [facility] JC PSV 82.1 cm/s [facility] Mid SMA EDV 0.0 cm/s [facility] Mid SMA PSV 44.2 cm/s [facility] Origin SMA EDV 0.0 cm/s [facility] Origin SMA PSV 87.4 cm/s [facility] Prox SMA EDV 9.0 cm/s [facility] Prox SMA PSV 73.6 cm/s [facility] Splenic EDV 11.0 cm/s [facility] Splenic PSV 75.0 cm/s [facility] Suprarenal Ao PSV 134.0 cm/s [facility] CV CPACS [facility] 29on 11-09-2023 29 Addended by: NATHAN RICO on: 11/09/2023 08:36 AM Modules accepted: Orders Normal [facility] APTTon 11-09-2023 aPTT Coag (Bld) [Time] 110.6 s Critically high [facility] Interpretation and review of laboratory results Abnormal [facility] aPTT Coag (Bld) [Time] 110.6 s Critically high 23.0-36.5 [facility] Comment on above: Result Comment: IV Heparin Therapy Range: 66.0-92.0 sec Performed By: #### H EPXA #### [facility] [address] [place] [address] Area Secretary: Gabe Freedman MD Anti-Xa, Unfractionated Hepa [facility] 11-09-2023 Anti-XA Unfrac Heparin 0.47 IU/L [facility] Anti-XA Unfrac Heparin 0.69 IU/L [facility] Anti-XA Unfrac Heparin 0.70 IU/L [facility] Arterial Bld Gas,POCon 11-08 HCO3 (Bld) [Moles/Vol] 21.0 mmol/L Normal 21.0-28.0 [facility] Negative Base Excess (calc) 1.7 mmol/L Normal 0.0-2.0 [facility] Oxygen saturation in Blood 97.1 % Normal 94.0-98.0 [facility] pCO2, Arterial 29.6 mm Hg Low 35.0-48.0 [facility] pH, Arterial 7.458 High 7.350-7.450 [facility] pO2, Arterial 84.8 mm Hg Normal 83.0-108.0 [facility] Arterial Blood Gas, POCon HCO3 (Bld) [Moles/Vol] 21.0 mmol/L 21.0 - 28.0 mmol/L [facility] Interpretation and review of laboratory results Abnormal [facility] Negative Base Excess, Art 1.7 mmol/L 0.0 - 2.0 mmol/L [facility] Oxygen saturation in Blood 97.1 % 94.0 - 98.0 % [facility] POC pCO2 29.6 Low [facility] POC pH 7.458 High 7.350 - 7.450 [facility] POC PO2 84.8 [facility] Basic Metab w/rfx MGon 11-08 Anion gap [Moles/Vol] 14 mmol/L Normal 9-16 [facility] Comment on above: Performed By: #### B HEATHER FT4 ####[facility] [id number] [place] [address] lab Director: Gabe Freedman MD Calcium [Mass/Vol] 8.7 mg/dL Normal 8.6-10.4 [facility] Comment on above: Performed By: #### B ELX, FT4 ####[facility] [address] [place] [address] Lab Director: Gabe Freedman MD Chloride [Moles/Vol] 109 mmol/L High 98-107 [facility] Comment on above: Performed By: #### B MPX, FT4 ####[facility] [address] [place], [place] [phone] Director: Gabe Freedman MD CO2 [Moles/Vol] 16 mmol/L Low 20-31 [facility] Comment on above: Performed By: #### B MPX, FT4 ####[facility] [address] [place], [place] [phone] Director: Gabe Freedman MD Creatinine [Mass/Vol] 3.1 mg/dL High 0.50-0.90 [facility] Comment on above: Performed By: #### B MPX, FT4 ####[facility] [address] [place], [place] [phone] Director: Gabe Freedman MD GFR/1.73 sq M.predicted among non-blacks MDRD (S/P/Bld) [Vol rate/Area] 16 mL/min/{1.73_m2} Low >60 [facility] Comment on above: Result Comment: These results are not intended for use in patients <18 years of age. eGFR results are calculated without a race factor using the 2020 CKD-EPI equation. Careful clinical correlation is recommended, particularly when comparing to results calculated using previous equations. The CKD-EPI equation is less accurate in patients with extremes of muscle mass, extra-renal metabolism of creatine, excessive creatine ingestion, or following therapy that affects renal tubular secretion. Performed By: #### B MPX, FT4 ####[facility] [address] [place] [address] Lab Director: Gabe Freedman MD Glucose [Mass/Vol] 89 mg/dL Normal 74-99 [facility] Comment on above: Performed By: #### B MPX, FT4 ####[facility] [address] [place] [address] Lab Director: Gabe Freedman MD Potassium [Moles/Vol] 4.2 mmol/L Normal 3.7-5.3 [facility] Comment on above: Result Comment: SPEC IMEN SLIGHTLY HEMOLYZED, RESULTS MAY BE ADVERSELY AFFECTED. Performed By: #### B MPX, FT4 ####[facility] [address] [place] [address] Lab Director: Gabe Freedman MD Sodium [Moles/Vol] 139 mmol/L Normal 136-145 [facility] Comment on above: Performed By: #### B MPX, FT4 ####[facility] [address] [place] [address] lab Director: Gabe Freedman MD Urea nitrogen [Mass/Vol] 32 mg/dL High 8-23 [facility] Comment on above: Performed By: #### B MPX, FT4 ####[facility] [address] [place] [address] lab Director: Gabe Freedman MD Basic Metabolic Panel w/ Ref pedro to on 11-09-2023 Anion gap [Moles/Vol] 14 mmol/L 9 - 16 mmol/L [facility] Calcium [Mass/Vol] 8.7 mg/dL 8.6 - 10. 4 mg/dL [facility] Chloride [Moles/Vol] 109 mmol/L High 98 - 10 7 mmol/L [facility] CO2 [Moles/Vol] 16 mmol/L Low 20 - 31 mmol/L [facility] Creatinine [Mass/Vol] 3.1 mg/dL High 0.50 - 0.90 mg/dL [facility] Est, Glom Filt Rate 16 Low - [facility] Glucose [Mass/Vol] 89 mg/dL 74 - 99 mg/dL [facility] Interpretation and review of laboratory results Abnormal [facility] Potassium [Moles/Vol] 4.2 mmol/L 3.7 - 5.3 mmol/L [facility] Sodium [Moles/Vol] 139 mmol/L 136 - 145 mmol/L [facility] Urea nitrogen [Mass/Vol] 32 mg/dL High 8 - 23 mg/dL [facility] Blood Gas, Venouson 11-09-19 Carboxyhemoglobin (Bld) [Mass fraction] 0.6 % 0 - 5 % [facility] HCO3 (Bld) [Moles/Vol] 18.1 mmol/L Low 24 - 30 mmol/L [facility] Interpretation and review of laboratory results Abnormal [facility] Negative Base Excess, Josesito 4.1 mmol/L High 0.0 - 2.0 mmol/L [facility] Oxygen saturation in Blood 97.2 % High 60.0 - 85.0 % [facility] Oxygen/Inspired gas Respiratory system --on ventilator INFORMATION NOT PROVIDED [facility] pCO2, Josesito 27.4 Low [facility] pH, Josesito 7.435 High 7.320 - 7.420 [facility] PO2, Josesito 88.0 High [facility] CBC with Auto Differentialon 11-09-2023 Basophils (Bld) [#/Vol] 0.09 10*3/uL [facility] Basophils/100 WBC (Bld) 1 % 0 - 2 % [facility] Eosinophils (Bld) [#/Vol] 0.17 10*3/uL [facility] Eosinophils/100 WBC (Bld) 2 % 1 - 4 % [facility] Erythrocyte distribution width (RBC) [Ratio] 14.2 % 11.8 - 14.4 % [facility] Hematocrit (Bld) [Volume fraction] 46.8 % 36.3 - 47.1 % [facility] Hemoglobin (Bld) [Mass/Vol] 14.9 g/dL 11.9 - 15.1 g/dL [facility] Immature granulocytes (Bld) [#/Vol] 0.06 10*3/uL [facility] Immature granulocytes/100 WBC (Bld) 1 % High 0 [facility] Interpretation and review of laboratory results Abnormal [facility] Lymphocytes/100 WBC (Bld) 19 % Low 24 - 43 % [facility] Lymphocytes/100 WBC (Bld) 1.94 % [facility] MCH (RBC) [Entitic mass] 27.7 pg 25.2 - 33.5 pg [facility] MCHC (RBC) [Mass/Vol] 31.8 g/dL 28.4 - 34.8 g/dL [facility] MCV (RBC) [Entitic vol] 87.2 fL 82.6 - 102.9 fL [facility] Monocytes/100 WBC (Bld) 15 % High 3 - 12 % [facility] Monocytes/100 WBC (Bld) 1.50 % High [facility] Neutrophils/100 WBC (Bld) 63 % 36 - 65 % [facility] Nucleated RBC/100 WBC (Bld) [Ratio] 0.0 % 0.0 per 100 WBC [facility] Platelet, Fluorescence 103 Low [facility] Platelets (Bld) [#/Vol] See Reflexed IPF Result [facility] Platelets reticulated/100 platelets Auto (Bld) 4.3 % 1.1 - 10.3 % [facility] RBC (Bld) [#/Vol] 5.37 10*6/uL High 3.95 - 5.1 1 m/uL [facility] Segmented neutrophils/100 WBC (Bld) 6.46 % [facility] WBC other (Bld) [#/Vol] 10.2 [facility] CBC with Diffon 11-09-2023 Abs. Basophil 0.09 k/uL Normal 0.00-0.20 [facility] Comment on above: Performed By: #### C DP, TSH, TROPI, MG ####[address] [place], [place] [id number] lab Director: Gabe Freedman MD Abs.Imm.Granulocyte 0.06 k/uL Normal 0.00-0.30 [facility] Comment on above: Performed By: #### C DP, TSH, TROPI, MG ####[facility] [address] [place], [place] [address])[phone] Director: Gabe Freedman MD Abs.Neutrophil (Seg) 6.46 k/uL Normal 1.50-8.10 [facility] Comment on above: Performed By: #### C DP, TSH, TROPI, MG ####[facility] [address] [place], [place] [address])[phone] Director: Gabe Freedman MD Basophils/100 WBC (Bld) 1 % Normal 0-2 [facility] Comment on above: Performed By: #### C DP, TSH, TROPI, MG ####[place], [place] [address])[phone] Director: Gabe Freedman MD Eosinophils (Bld) [#/Vol] 0.17 10*3/uL Normal 0.00-0.44 [facility] Comment on above: Performed By: #### C DP, TSH, TROPI, MG ####[facility] [address] [place], [place] [address])[phone] Director: Gabe Freedman MD Eosinophils/100 WBC (Bld) 2 % Normal 1-4 [facility] Comment on above: Performed By: #### C DP, TSH, TROPI, MG ####[place], [place] [address])[phone] Director: Gabe Freedman MD Erythrocyte distribution width (RBC) [Ratio] 14.2 % Normal 11.8-14.4 [facility] Comment on above: Performed By: #### C DP, TSH, TROPI, MG ####[facility] [address] [place], [place] [address])[phone] Director: Gabe Freedman MD Hematocrit (Bld) [Volume fraction] 46.8 % Normal 36.3-47.1 [facility] Comment on above: Performed By: #### C DP, TSH, TROPI, MG ####[facility] [address] [place], [place] [phone])[phone] Director: Gabe Freedman MD Hemoglobin (Bld) [Mass/Vol] 14.9 g/dL Normal 11.9-15.1 [facility] Comment on above: Performed By: #### C DP, TSH, TROPI, MG ####[facility] [address] [place], [place] [address])[phone] Director: Gabe Freedman MD Immature granulocytes/100 WBC (Bld) 1 % High 0 [facility] Comment on above: Performed By: #### C DP, TSH, TROPI, MG ####[address] [address])[phone] Director: Gabe Freedman MD Lymphocytes (Bld) [#/Vol] 1.94 10*3/uL Normal 1.10-3.70 [facility] Comment on above: Performed By: #### C DP, TSH, TROPI, MG ####[facility] [address] [place] [address])[phone] Director: Gabe Freedman MD Lymphocytes/100 WBC (Bld) 19 % Low 24-43 [facility] Comment on above: Performed By: #### C DP, TSH, TROPI, MG ####[facility] [address] [place] [address])[phone] Director: Gabe Freedman MD MCH (RBC) [Entitic mass] 27.7 pg Normal 25.2-33.5 [facility] Comment on above: Performed By: #### C DP, TSH, TROPI, MG ####[facility] [address] [place] [address])[phone] Director: Gabe Freedman MD MCHC (RBC) [Mass/Vol] 31.8 g/dL Normal 28.4-34.8 [facility] [facility] Comment on above: Performed By: #### C DP, TSH, TROPI, MG ####[facility] [address] [place], [place] [phone] Director: Gabe Freedman MD MCV (RBC) [Entitic vol] 87.2 fL Normal 82.6-102.9 [facility] Comment on above: Performed By: #### C DP, TSH, TROPI, MG ####[facility] [address] [place] [address] Lab Director: Gabe Freedman MD Monocytes (Bld) [#/Vol] 1.50 10*3/uL High 0.10-1.20 [facility] Comment on above: Performed By: #### C DP, TSH, TROPI, MG ####[address] [id number] Lab Director: Gabe Freedman MD Monocytes/100 WBC (Bld) 15 % High 3-12 [facility] Comment on above: Performed By: #### C DP, TSH, TROPI, MG ####[address] [phone] Director: Gabe Freedman MD Neutrophil (Seg) 63 % Normal 36-65 [facility] Comment on above: Performed By: #### C DP, TSH, TROPI, MG ####[address] [phone] Director: Gabe Freemdan MD NRBC Automated 0.0 per 100 WBC Normal 0.0 [facility] Comment on above: Performed By: #### C DP, TSH, TROPI, MG ####[address] [place], [place] [phone] Director: Gabe Freedman MD Platelet Count See Reflexed IPF Result Normal 138-453 [facility] Comment on above: Performed By: #### C DP, TSH, TROPI, MG ####[address] [place] [phone] Director: Gabe Freedman MD Platelet, Fluoresc. 103 k/uL Low 138-453 [facility] Comment on above: Performed By: #### C DP, TSH, TROPI, MG ####[facility] [address] [place], [place] [phone] Director: Gabe Freedman MD PLT, Immature Fract. 4.3 % Normal 1.1-10.3 [facility] Comment on above: Performed By: #### C DP, TSH, TROPI, MG ####[facility] [address] [place], [place] [phone] Director: Gabe Freedman MD RBC (Bld) [#/Vol] 5.37 10*6/uL High 3.95-5.11 [facility] Comment on above: Performed By: #### C DP, TSH, TROPI, MG ####[facility] [address] [place] [address] [phone] Director: Gabe Freedman MD WBC (Bld) [#/Vol] 10.2 10*3/uL Normal 3.5-11.3 [facility] Comment on above: Performed By: #### C DP, TSH, TROPI, MG ####[address] [phone] Director: Gabe Freedman MD CT CHEST WO CONTRASTon 11-08 CT CHEST WO CONTRAST EXAMINATION: CT OF THE CHEST WITHOUT CONTRAST 11/08/2023 9:15 pm TECHNIQUE: CT of the chest was performed without the administration of intravenous contrast. Multiplanar reformatted images are provided for review. Automated exposure control, iterative reconstruction, and/or weight based adjustment of the mA/kV was utilized to reduce the radiation dose to as low as reasonably achievable. COMPARISON: None HISTORY: ORDERING SYSTEM PROVIDED HISTORY: hypoxia TECHNOLOGIST PROVIDED HISTORY: hypoxia Reason for Exam: hypoxia FINDINGS: Mediastinum: No evidence of hemorrhage or acute process in the mediastinum. No evidence of mediastinal mass or pathologic lymphadenopathy. Thoracic aorta appears to be of normal size. The diameter of the ascending thoracic aorta is 3.36 cm. Cardiac size appears to be within normal limits. There is pericardial effusion. Anterior to left heart the AP thickness of the pericardial effusion is 1.38 cm. At the posteroinferior aspect of left heart the maximal thickness of the pericardial effusion is 1.1 cm. No obvious coronary arterial calcifications demonstrated. Lungs/pleura: Minimal focal fibrotic changes can be identified at the posterolateral base of right pulmonary lower lobe and in the lateral aspect of lateral segment of right pulmonary lower lobe. In the inferior lingula of left lung there are minimal streaky fibrotic or atelectatic changes. At the lateral aspect of the apical segment of right pulmonary upper lobe there are minimal fibrotic changes noted. Rest of lung byrnes are clear. Lungs are mildly hyperinflated suggestive of COPD without any obvious bulla formation. No evidence of pleural effusion or pleural thickening, or pneumothorax or pneumomediastinum. Upper Abdomen: In the visualized upper and midportion of liver there is no focal abnormality or acute process. In visualized upper and midportion of gallbladder there is no definable abnormality. Fundus of gallbladder is not completely included. Spleen appears to be grossly normal. Moderate atrophic changes in the pancreas without acute process. Normal adrenal glands. Visualized upper portion of left kidney appears to be markedly atrophic. Right kidney is not visualized. No evidence of hiatal hernia. No pneumoperitoneum. Soft Tissues/Bones: No evidence of fracture or acute process or any other diagnostic finding in the thoracic spine. No definable fracture or focal abnormality in bilateral ribs or in rest of bony thorax. No acute process in the soft tissues of chest wall. IMPRESSION: 1. Pericardial effusion as described above. Maximal thickness of pericardial effusion is 1.38 cm. 2. COPD. 3. Minimal scattered fibrotic changes in the lungs as described above. No confluent pneumonia, confluent pulmonary atelectasis or pleural effusions. 4. Atrophic changes in the pancreas. 5. Markedly atrophic left kidney which is not completely visualized. Right kidney not visualized. Interpreted by: Shannon Barron MD Signed by: Shannon Barron MD 11/09/23 Final result Normal [facility] CT Chest WO contraston 11-08 [facility] RIS CONSOLIDATED [facility]PN RIS CONSOLIDATED [facility] CT Chest WO contrastOrdered By: Shannon Barron on 11-09-2023 [facility] [employer] Work Phone: Cardiac echo study Procedure on 11-09-2023 Ao Root Index 1.18 cm/m2 [facility] Aortic Root 2.2 cm [facility] Ascending Aorta 3.5 cm [facility] Ascending Aorta Index 1.88 cm/m2 [facility] AV Area by Peak Velocity 1.4 cm2 [facility] AV Area by VTI 2.3 cm2 [facility] AV Mean Gradient 1 mmHg [facility] AV Mean Velocity 0.5 m/s [facility] AV Peak Gradient 3 mmHg [facility] AV Peak Velocity 0.9 m/s [facility] AV Velocity Ratio 0.56 [facility] AV VTI 11.8 cm [facility] JOSE/BSA Peak Velocity 0.8 cm2/m2 [facility] JOSE/BSA VTI 1.2 cm2/m2 [facility] Body surface area Derived from formula 1.89 m2 [facility] E/E' Lateral 7.00 [facility] E/E' Ratio (Averaged) 7.88 [facility] E/E' Septal 8.75 [facility] EF BP 45 % Abnormal 55 - 100 % [facility] EF Physician 50 % [facility] Est. RA Pressure 8 mmHg [facility] [employer] [facility] Fractional Shortening 2D 39 % 28 - 44 % [facility] Interpretation and review of laboratory results Abnormal [facility] IVSd 1.7 cm Abnormal 0.6 - 0.9 cm [facility] [place] Area 4C 11.4 cm2 [facility] [place] Diameter 2.8 cm [facility] [place] Major [place] 4.8 cm [facility] [place] Size Index 1.51 cm/m2 [facility] [place] Volume Index MOD A4C 10 ml/m2 Abnormal 16 - 34 ml/m2 [facility] [place] Volume MOD A4C 19 mL Abnormal 22 - 52 mL [facility] [place]/AO Root Ratio 1.27 [facility] U[facility] [employer] LV E' Lateral Velocity 5 cm/s [facility] [employer] LV E' Septal Velocity 4 cm/s [facility] LV Mass 2D 171.2 g Abnormal 67 - 162 g [facility] LV Mass 2D Index 92.0 g/m2 43 - 95 g/m2 [facility] [employer] LV RWT Ratio 1.14 [facility] LVIDd 2.8 cm Abnormal 3.9 - 5.3 cm [facility] LVIDd Index 1.51 cm/m2 [facility] LVIDs 1.7 cm [facility] LVIDs Index 0.91 cm/m2 [facility] [employer] LVOT Area 2.8 cm2 [facility]ON [facility] LVOT Diameter 1.9 cm [facility] [employer] LVOT Mean Gradient 0 mmHg [facility] SE COURS [facility] LVOT Peak Gradient 1 mmHg [facility] SE COURS [facility] LVOT Peak Velocity 0.5 m/s [facility] SE COURS [facility] LVOT Stroke Volume Index 14.3 mL/m2 [facility] [employer] LVOT SV 26.6 ml BON [facility] [employer] LVOT VTI 9.4 cm [facility] [employer] LVOT:AV VTI Index 0.80 BON [facility] [employer] LVPWd 1.6 cm Abnormal 0.6 - 0.9 cm BON [facility] MV A Velocity 0.57 m/s [facility]ON [facility] MV E Velocity 0.35 m/s [facility] [employer] MV E Wave Deceleration Time 206.0 ms [facility]ON [facility] [employer] MV E/A 0.61 [facility]ON [facility] PV Max Velocity 0.8 m/s [facility] [employer] PV Peak Gradient 2 mmHg [facility] [employer] RV Free Wall Peak S' 8 cm/s BON [facility] [employer] RVIDd 4.3 cm [facility]ON [facility] RVSP 59 mmHg [facility] [employer] TAPSE 1.1 cm Abnormal 1.7 cm [facility] TR Max Velocity 3.58 m/s [facility] [employer] TR Peak Gradient 51 mmHg [facility] [employer] BON [facility] BON [facility] Radiology Study observation (narrative) [facility] [employer] EKG 12 LeadOrdered By: Luis A Burnham on 11-09-2023 Atrial Rate 78 BPM [employer]! Work Phone: P [place] 88 degrees [employer]! Work Phone: P-R Interval 136 ms [employer] Work Phone: Q-T Interval 410 ms [employer] Work Phone: QRS Duration 82 ms [employer] Work Phone: QTc Calculation (Bazett) 467 ms [employer] Work Phone: R [place] 155 degrees [employer]! Work Phone: T [place] 22 degrees [employer]! Work Phone: Ventricular Rate 78 BPM [facility] [employer] Work Phone: EKG 12 Leadon 11-09-2023 [facility] STV MUSE burrp! Ejection Fraction Percentage Ordered By: Manuela Sandoval on 11-09-2023 Left ventricular Ejection fraction 45 % [employer] Glucose,Whole Bloodon 2023 Glucose [Mass/Vol] 114 mg/dL High 65-105 [facility] Glucose [Mass/Vol] 77 mg/dL Normal 65-105 [facility] Glucose [Mass/Vol] 86 mg/dL Normal 65-105 [facility] Glucose [Mass/Vol] 152 mg/dL High 65-105 [facility] Glucose [Mass/Vol] 110 mg/dL High 65-105 [facility] Glucose [Mass/Vol] 68 mg/dL Normal 65-105 [facility] Glucose [Mass/Vol] 74 mg/dL Normal 65-105 [facility] Glucose [Mass/Vol] 155 mg/dL High 65-105 [facility] [employer] Glucose [Mass/Vol] 54 mg/dL Low 65-105 [facility] Comment on above: Result Comment: Gunnar griffin Noted Heparin Anti-Xaon 11-09-2023 Heparin Anti-Xa 0.47 IU/L Normal [facility] Comment on above: Result Comment: This test has not been validated or calibrated for therapies other than unfractionated heparin. Interpretation of the result in relation to other therapies must be done with caution and within clinical context. Performed By: #### M G, BMP, HEPXA #### [facility] [address] [place] [address] [phone] Area Secretary: Gabe Freedman MD Heparin Anti-Xa 0.69 IU/L Normal [facility] Comment on above: Result Comment: This test has not been validated or calibrated for therapies other than unfractionated heparin. Interpretation of the result in relation to other therapies must be done with caution and within clinical context. Performed By: #### H EPXA #### [facility] [address] [place] [address] [phone] Area Secretary: Gabe Freedman MD Heparin Anti-Xa 0.70 IU/L Normal [facility] Comment on above: Result Comment: This test has not been validated or calibrated for therapies other than unfractionated heparin. Interpretation of the result in relation to other therapies must be done with caution and within clinical context. Performed By: #### H EPXA #### [employer] [address] [place] [phone] Area Secretary: Gabe Freedman MD LEGIONELLA ANTIGEN, URINEon 11-09-2023 L. pneumophila 1 Ag IA.rapid Ql (U) Negative NEGATIVE [facility] Lactic Acidon 11-09-2023 Lactic Acid, Whole Blood 1.6 mmol/L 0.7 - 2.1 mmol/L [facility] Lactic Acid,Whole Bl 1.6 mmol/L Normal 0.7-2.1 [facility] Comment on above: Performed By: #### H EPXA #### [facility] [address] [place] [address] [phone] Area Secretary: Gabe Freedman MD Legionella Ag, Uron 11-09-19 24 Legionella Ag, Ur Negative Normal NEG [facility] Comment on above: Result Comment: L. p neumophila serogroup 1 antigen not detected. A negative result does not exclude infection with Leginella pnemophila serogroup 1 nor does it rule out other microbial-caused respiratory infections of disease caused by other serogroups of Legionella pneumophila. Performed By: #### L EGU ####[facility] [address] [place], [place] [phone] Lab Director: Gabe Freedman MD MRSA, DNA, Nasalon Specimen Description .NASAL SWAB Normal [facility] Comment on above: Performed By: #### M RSANO ####[facility] [address] [place], [place] [phone] lab Director: Gabe Freedman MD Magnesiumon 11-09-2023 Magnesium [Mass/Vol] 2.0 mg/dL 1.6 - 2 .4 mg/dL [facility] Magnesium [Mass/Vol] 2.0 mg/dL Normal 1.6-2.4 [facility] Comment on above: Performed By: #### C DP, TSH, TROPI, MG ####[employer] [address] [place], [place] [phone] lab Director: Gabe Freedman MD No Panel Informationon 11-08 [facility] [employer] Interpretation and review of laboratory results Abnormal [facility] [employer] No Panel InformationOrdered By: Manuela Sandoval on 11-09-2023 [facility] POC Glucose Fingerstickon Glucose [Mass/Vol] 114 mg/dL High 65 - 105 mg/dL [facility] [employer] Interpretation and review of laboratory results Abnormal [facility] [employer] Glucose [Mass/Vol] 77 mg/dL 65 - 105 mg/dL [facility] Glucose [Mass/Vol] 86 mg/dL 65 - 105 mg/dL [facility]ra[facility] [employer] Glucose [Mass/Vol] 152 mg/dL High 65 - 105 mg/dL [facility] Interpretation and review of laboratory results Abnormal [facility] Glucose [Mass/Vol] 110 mg/dL High 65 - 105 mg/dL [facility] Interpretation and review of laboratory results Abnormal [facility] Glucose [Mass/Vol] 68 mg/dL 65 - 105 mg/dL [facility] Glucose [Mass/Vol] 74 mg/dL 65 - 105 mg/dL [facility] Interpretation and review of laboratory results Abnormal [facility] Glucose [Mass/Vol] 54 mg/dL Low 65 - 105 mg/dL [facility] Interpretation and review of laboratory results Abnormal [facility] PREVIOUS SPECIMENon 11-09-19 24 [facility] PTon 11-09-2023 INR Coag (PPP) [Relative time] 1.1 {INR} Normal [facility] Comment on above: Result Comment: Therapeutic Range: Moderate Anticoagulant Intensity: INR = 2.0-3.0 High Anticoagulant Intensity: INR = 2.5-3.5 Performed By: #### H EPXA #### [facility] [address] [place] [address] Area Secretary: Gabe Freedman MD PT Coag (PPP) [Time] 14.2 s Normal 11.7-14.9 [facility] Comment on above: Performed By: #### H EPXA #### [employer] [address] [place], [place] [phone] Area Secretary: Gabe Freedman MD Portable XR Chest AP single viewon 11-09-2023 [facility] RIS CONSOLIDATED PN RIS CONSOLIDATED [facility] Radiology Study observation (narrative) [facility] Portable XR Chest AP single viewOrdered By: Rob Deleon on 11-09-2023 [facility] Work Phone: Prot. Electrophoresis, Uron 11-09-2023 Total Protein Conc. 474 mg/dL Normal [facility] Comment on above: Result Comment: No n ormal range established. Performed By: #### U PE ####[facility] [address] [place] [address] [phone] Director: Gabe Freedman MD Type of Specimen .URINE Normal [facility] Comment on above: Performed By: #### U PE ####[address] [phone] Director: Gabe Freedman MD Protime-INRon 11-09-2023 INR Coag (PPP) [Relative time] 1.1 {INR} [facility] [employer] PT Coag (PPP) [Time] 14.2 s [facility] [employer] Resp Viral Panelon 4 Adenovirus Not detected Normal [facility] Comment on above: Performed By: #### M G, BMP, HEPXA #### [facility] [employer] [address] [place] [phone] Area Secretary: MD Nicolás Franksdet.parapertussis Not detected Normal [facility] Comment on above: Performed By: #### M G, BMP, HEPXA #### [facility] [address] [place] [address] Area Secretary: Gabe Freedman MD Bordetella pertussis Not detected Normal [facility] Comment on above: Performed By: #### M G, BMP, HEPXA #### [facility] [address] [place] [address] Area Secretary: Gabe Freedman MD Chlamyd.pneumoniae Not detected Normal [facility] Comment on above: Performed By: #### M G, BMP, HEPXA #### [employer] [facility] [address] [place] [address] Area Secretary: Gabe Freedman MD Coronavirus 229E Not detected Normal [facility] Comment on above: Performed By: #### M G, BMP, HEPXA #### [facility] [address] [place] [address] Area Secretary: Gabe Freedman MD Coronavirus HKU1 Not detected [facility] Comment on above: Performed By: #### M G, BMP, HEPXA #### [facility] [address] [place] [address] Area Secretary: Gabe Freedman MD Coronavirus NL63 Not detected [facility] Comment on above: Performed By: #### M G, BMP, HEPXA #### [facility] [address] [place] [address] Area Secretary: Gabe Freedman MD Coronavirus OC43 Not detected [facility] Comment on above: Performed By: #### M G, BMP, HEPXA #### [facility] [address] [place] [address] Area Secretary: Gabe Freedman MD Human Metapneumo Not detected [facility] Comment on above: Performed By: #### M G, BMP, HEPXA #### [facility] [address] [place] [address] Area Secretary: Gabe Freedman MD Influenza A Not detected [facility] Comment on above: Performed By: #### M G, BMP, HEPXA #### [facility] [address] [place] [address] Area Secretary: Gabe Freedman MD Influenza B Not detected [facility] Comment on above: Performed By: #### M G, BMP, HEPXA #### [facility] [address] [place] [address] Area Secretary: Gabe Freedman MD Mycoplas.pneumoniae Not detected Normal [facility] Comment on above: Result Comment: Perf ormed by multiplexed nucleic acid assay. Performed By: #### M G, BMP, HEPXA #### [facility] [address] [place] [address] Area Secretary: Gabe Freedman MD Parainfluenza 1 Not detected Normal [facility] Comment on above: Performed By: #### M G, BMP, HEPXA #### [facility] [address] [place] [address] Area Secretary: Gabe Freedman MD Parainfluenza 2 Not detected Normal [facility] Comment on above: Performed By: #### M G, BMP, HEPXA #### [facility] [address] [place] [address] Area Secretary: Gabe Freedman MD Parainfluenza 3 Not detected Normal [facility] Comment on above: Performed By: #### M G, BMP, HEPXA #### [facility] [address] [place] [address] Area Secretary: Gabe Freedman MD Parainfluenza 4 Not detected [facility] Comment on above: Performed By: #### M G, BMP, HEPXA #### [facility] [address] [place] [address] Area Secretary: Gabe Freedman MD Resp Syncytial Virus Not detected Normal [facility] Comment on above: Performed By: #### M G, BMP, HEPXA #### [facility] [address] [place] [address] Area Secretary: Gabe Freedman MD Rhino/Enterovirus Not detected Normal [facility] Comment on above: Performed By: #### M G, BMP, HEPXA #### [facility] [address] [place] [phone] Area Secretary: Gabe Freedman MD SARS-CoV-2 (COVID-19) RNA ZITA+probe Ql (Unsp spec) Not detected [facility] Comment on above: Performed By: #### M G, BMP, HEPXA #### [facility] [address] [place], [place] [phone] Area Secretary: Gabe Freedman MD Source: .NASOPHARYNGEAL SWAB Normal [facility] Comment on above: Performed By: #### M G, BMP, HEPXA #### [facility] [address] [place], [place] [phone] Area Secretary: Gabe Freedman MD Respiratory Panel, Molecular , with COVID-19 (Restricted: peds pts or suitable admitted adults)on 11-09-2023 Adenovirus DNA ZITA+non-probe Ql (Nph) Not detected Not Detected [facility] B. parapertussis [id number] DNA ZITA+non-probe Ql (Nph) Not detected Not Detected [facility] B. pertussis DNA ZITA+probe Ql (Unsp spec) Not detected Not Detected [facility] C. pneumoniae DNA ZITA+non-probe Ql (Nph) Not detected Not Detected [facility] FLUAV RNA ZITA+non-probe Ql (Nph) Not detected Not Detected [facility] FLUBV RNA ZITA+non-probe Ql (Nph) Not detected Not Detected [facility] HCoV 229E RNA ZITA+non-probe Ql (Nph) Not detected Not Detected [facility] HCoV HKU1 RNA ZITA+non-probe Ql (Nph) Not detected Not Detected [facility] HCoV NL63 RNA ZITA+non-probe Ql (Nph) Not detected Not Detected [facility] HCoV OC43 RNA ZITA+non-probe Ql (Nph) Not detected Not Detected [facility] hMPV RNA ZITA+non-probe Ql (Nph) Not detected Not Detected [facility] M. pneumoniae DNA ZITA+non-probe Ql (Nph) Not detected Not Detected [facility] Parainfluenza virus 1 RNA ZITA+non-probe Ql (Nph) Not detected Not Detected [facility] Parainfluenza virus 2 RNA ZITA+non-probe Ql (Nph) Not detected Not Detected [facility] Parainfluenza virus 3 RNA ZITA+non-probe Ql (Nph) Not detected Not Detected [facility] Parainfluenza virus 4 RNA ZITA+non-probe Ql (Nph) Not detected Not Detected [facility] Rhinovirus+Enteroviru s RNA ZITA+non-probe Ql (Nph) Not detected Not Detected [facility] RSV RNA ZITA+non-probe Ql (Nph) Not detected Not Detected [facility] SARS-CoV-2 (COVID-19) RNA ZITA+non-probe Ql (Nph) Not detected Not Detected [facility] Specimen Description .NASOPHARYNGEAL SWAB [facility] Strep Pneumoniae Antigenon 0 11-09-2023 S. pneumoniae Ag Ql (Unsp spec) Negative [facility] Specimen source Nom (Unsp spec) .URINE [facility] Strep pneum Ag,CSF/Uron 10-24 Strep pneum Ag Negative Normal [facility] Comment on above: Result Comment: Stre p pneumoniae antigen not detected Performed By: #### S PNAG ####[facility] [id number] [place] [id number] Lab Director: Gabe Freedman MD Strep pneu Ag Source .URINE Normal [facility] Comment on above: Performed By: #### S PNAG ####[facility] [address] [place] [id number] Lab Director: Gabe Freedman MD T4, Freeon 11-09-2023 Free T4 [Mass/Vol] 2.0 ng/dL High 0.92 - 1. 68 ng/dL [facility] Interpretation and review of laboratory results Abnormal [facility] TSH without Reflexon 024 TSH Qn 0.03 m[IU]/L Low [facility] Thyroid Stim. Horm.on 2023 Thyroid Stim. Horm. 0.03 uIU/mL Low 0.27-4.20 [facility] Comment on above: Performed By: #### C DP, TSH, TROPI, MG ####[facility] [id number] [place] [address] Lab Director: Gabe Freedman MD Thyroxine, Freeon 11-09-2023 Thyroxine, Free 2.0 ng/dL High 0.92-1.68 [facility] Comment on above: Performed By: #### B MPX, FT4 ####[facility] [address] [place] [address] Lab Director: Gabe Freedman MD Troponinon 11-09-2023 Troponin I.cardiac High sensitivity method [Mass/Vol] 184 ng/L Critically high 0 - 14 ng/L [facility] Troponin, High Sens 184 ng/L Critically high 0-14 [facility] Comment on above: Result Comment: High Sensitivity Troponin values cannot be compared with other Troponin methodologies. Previous Alert Value Reported Performed By: #### C DP, TSH, TROPI, MG ####[facility] [address] [place] [address] Lab Director: Gabe Freedman MD Interpretation and review of laboratory results Abnormal [facility] Troponin I.cardiac High sensitivity method [Mass/Vol] 192 ng/L Critically high 0 - 14 ng/L [facility] Troponin, High Sens 192 ng/L Critically high 0-14 [facility] Comment on above: Result Comment: High Sensitivity Troponin values cannot be compared with other Troponin methodologies. Previous Alert Value Reported Performed By: #### T ROPI ####[facility] [address] [place], [place] [id number] Lab Director: Gabe Freedman MD Vascular duplex lower extrem ity venous bilateralon 11-09-2023 Radiology Study observation (narrative) [facility] Vascular duplex mesenteric a rteryon 11-09-2023 Radiology Study observation (narrative) [facility] Venous Blood Gaseson 024 Body Temp. 37.0 Normal [facility] Comment on above: Performed By: #### H EPXA #### [address] [address] Area Secretary: Gabe Freedman MD Carboxy Hgb 0.6 % Normal 0-5 [facility] Comment on above: Result Comment: Reference Range: Non-Smokers 0-2% Average Smoker 2-4% Heavy Smoker <10% Performed By: #### H EPXA #### [address] [address] Area Secretary: Gabe Freedman MD FIO2 INFORMATION NOT PROVIDED Normal [facility] Comment on above: Performed By: #### H EPXA #### [address] [address] Area Secretary: Gabe Freedman MD HCO3 (Bld) [Moles/Vol] 18.1 mmol/L Low 24-30 [facility] Comment on above: Performed By: #### H EPXA #### [address] [address] Area Secretary: Gabe Freedman MD Negative Base Excess 4.1 mmol/L High 0.0-2.0 [facility] Comment on above: Performed By: #### H EPXA #### [address] [address] Area Secretary: Gabe Freedman MD Oxygen saturation in Blood 97.2 % High 60.0-85.0 [facility] Comment on above: Performed By: #### H EPXA #### [address] [address] Area Secretary: Gabe Freedman MD pCO2 27.4 mm Hg Low 39-55 [facility] Comment on above: Performed By: #### H EPXA #### [address] [address] Area Secretary: Gabe Freedman MD pH (Bld) 7.435 [pH] High 7.320-7.420 [facility] Comment on above: Performed By: #### H EPXA #### [facility] [place], [place] [id number] Area Secretary: Gabe Freedman MD pO2 88.0 mm Hg High 30-50 [facility] Comment on above: Performed By: #### H EPXA #### [facility] [place] [address] Area Secretary: Gabe Freedman MD XR CHEST PORTABLEon 11-09-19 XR CHEST PORTABLE EXAMINATION: ONE XRAY VIEW OF THE CHEST 11/09/2023 11:10 am COMPARISON: None. HISTORY: ORDERING SYSTEM PROVIDED HISTORY: Shortness of breath, moderate risk for PE TECHNOLOGIST PROVIDED HISTORY: Shortness of breath, moderate risk for PE FINDINGS: The cardiomediastinal silhouette is normal size.No consolidation or venous congestion.No pleural effusion or pneumothorax identified. IMPRESSION: No acute cardiopulmonary disease. Interpreted by: Rob Deleon MD Signed by: Rob Deleon MD 11/09/23 Final result Normal [facility] APTTon 11-08-2023 aPTT Coag (Bld) [Time] 52.7 s High [facility] aPTT Coag (Bld) [Time] 52.7 s High 23.0-36.5 [facility] Comment on above: Result Comment: IV Heparin Therapy Range: 66.0-92.0 sec Performed By: #### M DANIELLE Aaron HEPXA #### [facility] [address] [place], [place] [id number] Area Secretary: Gabe Freedman MD Brain Natri. Peptideon 11-07 Natriuretic peptide B (Bld) [Mass/Vol] 78903 pg/mL High 0-300 [facility] Comment on above: Result Comment: An a ge-independent cutoff point of 300 pg/ml has a 98% negative predictive value excluding acute heart failure. Performed By: #### M G, BMP, HEPXA #### [facility] [address] [place] [address] Area Secretary: Gabe Freedman MD Brain Natriuretic Peptideon 11-08-2023 Natriuretic peptide B (Bld) [Mass/Vol] 16286 pg/mL High 0 - 300 pg/mL [facility] CBC with Auto Differentialon 11-08-2023 Basophils (Bld) [#/Vol] 0.09 10*3/uL [facility] Basophils/100 WBC (Bld) 1 % 0 - 2 % [facility] Eosinophils (Bld) [#/Vol] 0.18 10*3/uL [facility] Eosinophils/100 WBC (Bld) 2 % 1 - 4 % [facility] Erythrocyte distribution width (RBC) [Ratio] 14.1 % 11.8 - 14.4 % [facility] Hematocrit (Bld) [Volume fraction] 54.1 % High 36.3 - 47.1 % [facility] Hemoglobin (Bld) [Mass/Vol] 17.3 g/dL High 11.9 - 15.1 g/dL [facility] Immature granulocytes (Bld) [#/Vol] 0.06 10*3/uL [facility] Immature granulocytes/100 WBC (Bld) 1 % High 0 [facility] Interpretation and review of laboratory results Abnormal [facility] Lymphocytes/100 WBC (Bld) 20 % Low 24 - 43 % [facility] Lymphocytes/100 WBC (Bld) 2.34 % [facility] MCH (RBC) [Entitic mass] 28.1 pg 25.2 - 33.5 pg [facility] MCHC (RBC) [Mass/Vol] 32.0 g/dL 28.4 - 34.8 g/dL [facility] MCV (RBC) [Entitic vol] 87.8 fL 82.6 - 102.9 fL [facility] Monocytes/100 WBC (Bld) 12 % 3 - 12 % [facility] Monocytes/100 WBC (Bld) 1.46 % High [facility] Neutrophils/100 WBC (Bld) 65 % 36 - 65 % [facility] Nucleated RBC/100 WBC (Bld) [Ratio] 0.0 % 0.0 per 100 WBC [facility] [employer] Platelet, Fluorescence 112 Low [facility] Platelets (Bld) [#/Vol] See Reflexed IPF Result [facility] Platelets reticulated/100 platelets Auto (Bld) 3.1 % 1.1 - 10.3 % [facility] [employer] RBC (Bld) [#/Vol] 6.16 10*6/uL High 3.95 - 5.1 1 m/uL [facility] Segmented neutrophils/100 WBC (Bld) 7.70 % [facility] [employer] WBC other (Bld) [#/Vol] 11.8 High [facility] [employer] CBC with Diffon 11-08-2023 Abs. Basophil 0.09 k/uL Normal 0.00-0.20 [facility] Comment on above: Performed By: #### Rian Aaron BMP, HEPXA #### [facility] [address] [place] [address] Area Secretary: Gabe Freedman MD Abs.Imm.Granulocyte 0.06 k/uL Normal 0.00-0.30 [facility] Comment on above: Performed By: #### M G, BMP, HEPXA #### [facility] [address] [place] [address] Area Secretary: Gabe Freedman MD Abs.Neutrophil (Seg) 7.70 k/uL Normal 1.50-8.10 [facility] Comment on above: Performed By: #### M G, BMP, HEPXA #### [facility] [place] [address] Area Secretary: Gabe Freedman MD Basophils/100 WBC (Bld) 1 % Normal 0-2 [facility] Comment on above: Performed By: #### M G, BMP, HEPXA #### [facility] [address] [place] [address] Area Secretary: Gabe Freedman MD Eosinophils (Bld) [#/Vol] 0.18 10*3/uL Normal 0.00-0.44 [facility] Comment on above: Performed By: #### M G, BMP, HEPXA #### [facility] [address] [place] [address] Area Secretary: Gabe Freedman MD Eosinophils/100 WBC (Bld) 2 % Normal 1-4 [facility] Comment on above: Performed By: #### M G, BMP, HEPXA #### [facility] [address] [place] [address] Area Secretary: Gabe Freedman MD Erythrocyte distribution width (RBC) [Ratio] 14.1 % Normal 11.8-14.4 [facility] Comment on above: Performed By: #### Rian Aaron, BMP, HEPXA #### [facility] [address] [place] [address] Area Secretary: Gabe Freedman MD Hematocrit (Bld) [Volume fraction] 54.1 % High 36.3-47.1 [facility] Comment on above: Performed By: #### M G, BMP, HEPXA #### [facility] [address] [place] [address] Area Secretary: Gabe Freedman MD Hemoglobin (Bld) [Mass/Vol] 17.3 g/dL High 11.9-15.1 [facility] Comment on above: Performed By: #### M G, BMP, HEPXA #### [facility] [address] [place] [address] Area Secretary: Gabe Freedman MD Immature granulocytes/100 WBC (Bld) 1 % High 0 [facility] Comment on above: Performed By: #### M G, BMP, HEPXA #### [facility] [address] [place] [address] Area Secretary: Gabe Freedman MD Lymphocytes (Bld) [#/Vol] 2.34 10*3/uL Normal 1.10-3.70 [facility] Comment on above: Performed By: #### DANIELLE Luong, HEPXA #### [facility] [address] [place] [address] Area Secretary: Gabe Freedman MD Lymphocytes/100 WBC (Bld) 20 % Low 24-43 [facility] Comment on above: Performed By: #### Rian Araon, DANIELLE, HEPXA #### [facility] [address] [place] [address] Area Secretary: Gabe Freedman MD MCH (RBC) [Entitic mass] 28.1 pg Normal 25.2-33.5 [facility] Comment on above: Performed By: #### DANIELLE Luong, HEPXA #### [address] [address] Area Secretary: Gabe Freedman MD MCHC (RBC) [Mass/Vol] 32.0 g/dL Normal 28.4-34.8 [facility] Comment on above: Performed By: #### DANIELLE Luong, HEPXA #### [facility] [address] [place] [address] Area Secretary: Gabe Freedman MD MCV (RBC) [Entitic vol] 87.8 fL Normal 82.6-102.9 [facility] Comment on above: Performed By: #### DANIELLE Luong, HEPXA #### [facility] [address] [place] [address] Area Secretary: Gabe Freedman MD Monocytes (Bld) [#/Vol] 1.46 10*3/uL High 0.10-1.20 [facility] Comment on above: Performed By: #### DANIELLE Luong, HEPXA #### [facility] [address] [place] [address] Area Secretary: Gabe Freedman MD Monocytes/100 WBC (Bld) 12 % Normal 3-12 [facility] Comment on above: Performed By: #### M G, BMP, HEPXA #### [address] [address] Area Secretary: Gabe Freedman MD Neutrophil (Seg) 65 % Normal 36-65 [facility] Comment on above: Performed By: #### M G, BMP, HEPXA #### [address] [address] Area Secretary: Gabe Freedman MD NRBC Automated 0.0 per 100 WBC Normal 0.0 [facility] Comment on above: Performed By: #### M G, BMP, HEPXA #### [address] [address] Area Secretary: Gabe Freedman MD Platelet Count See Reflexed IPF Result Normal 138-453 [facility] Comment on above: Performed By: #### M G, BMP, HEPXA #### [address] [address] Area Secretary: Gabe Freedman MD Platelet, Fluoresc. 112 k/uL Low 138[address] [place] [address] Comment on above: Performed By: #### M G, BMP, HEPXA #### [address] [address] Area Secretary: Gabe Freedman MD PLT, Immature Fract. 3.1 % Normal 1.1-10.3 [facility] Comment on above: Performed By: #### M G, BMP, HEPXA #### [address] [address] Area Secretary: Gabe Freedman MD RBC (Bld) [#/Vol] 6.16 10*6/uL High 3.95-5.11 [facility] Comment on above: Performed By: #### M G, BMP, HEPXA #### [facility] [address] [place] [address] Area Secretary: Gabe Freedman MD WBC (Bld) [#/Vol] 11.8 10*3/uL High 3.5-11.3 [facility] Comment on above: Performed By: #### M Galen, BMP, HEPXA #### [facility] [address] [place] [address] Area Secretary: Gabe Freedman MD CT Chest WO contraston 11-07 Radiology Study observation (narrative) [facility] Comp Metabolic Profon 2023 Albumin [Mass/Vol] 3.7 g/dL Normal 3.5-5.2 [facility] Comment on above: Performed By: #### M Galen BMP, HEPXA #### [facility] [address] [place] [address] Area Secretary: Gabe Freedman MD Albumin/Glob Ratio 1.0 Normal 1.0-2.5 [facility] Comment on above: Performed By: #### M Galen, BMP, HEPXA #### [facility] [address] [place] [address] Area Secretary: Gabe Freedman MD Alkaline Phos 86 U/L Normal 35-104 [facility] Comment on above: Performed By: #### M Galen BMP, HEPXA #### [facility] [address] [place] [address] Area Secretary: Gabe Freedman MD ALT [Catalytic activity/Vol] 100 U/L High 10-35 [facility] Comment on above: Performed By: #### M Galen, BMP, HEPXA #### [facility] [address] [place] [address] Area Secretary: Gabe Freedman MD Anion gap [Moles/Vol] 15 mmol/L Normal 9-16 [facility] Comment on above: Performed By: #### M Galen BMP, HEPXA #### [facility] [address] [place] [address] Area Secretary: Gabe Freedman MD AST [Catalytic activity/Vol] 72 U/L High 10-35 [facility] Comment on above: Result Comment: SPEC IMEN SLIGHTLY HEMOLYZED, RESULTS MAY BE ADVERSELY AFFECTED. Performed By: #### M Galen, BMP, HEPXA #### [facility] [address] [place] [address] Area Secretary: Gabe Freedman MD Bilirubin [Mass/Vol] 0.7 mg/dL Normal 0.00-1.20 [facility] Comment on above: Performed By: #### Rian Aaron BMP, HEPXA #### [facility] [address] [place] [address] Area Secretary: Gabe Freedman MD Calcium [Mass/Vol] 9.9 mg/dL Normal 8.6-10.4 [facility] Comment on above: Performed By: #### Rian Aaron BMP, HEPXA #### [facility] [address] [place] [address] Area Secretary: Gabe Freedman MD Chloride [Moles/Vol] 111 mmol/L High 98-107 [facility] Comment on above: Performed By: #### Rian Aaron BMP, HEPXA #### [facility] [address] [place] [address] Area Secretary: Gabe Freedman MD CO2 [Moles/Vol] 16 mmol/L Low 20-31 [facility] Comment on above: Performed By: #### M Galen BMP, HEPXA #### [facility] [address] [place] [address] Area Secretary: Gabe Freedman MD Creatinine [Mass/Vol] 2.7 mg/dL High 0.50-0.90 [facility] Comment on above: Performed By: #### M Galen BMP, HEPXA #### [employer] [address] [place] [address] Area Secretary: Gabe Freedman MD GFR/1.73 sq M.predicted among non-blacks MDRD (S/P/Bld) [Vol rate/Area] 20 mL/min/{1.73_m2} Low >60 [facility] Comment on above: Result Comment: These results are not intended for use in patients <18 years of age. eGFR results are calculated without a race factor using the 2020 CKD-EPI equation. Careful clinical correlation is recommended, particularly when comparing to results calculated using previous equations. The CKD-EPI equation is less accurate in patients with extremes of muscle mass, extra-renal metabolism of creatine, excessive creatine ingestion, or following therapy that affects renal tubular secretion. Performed By: #### M Galen BMP, HEPXA #### [facility] [address] [place] [address] Area Secretary: Gabe Freedman MD Glucose [Mass/Vol] 105 mg/dL High 74-99 [facility] Comment on above: Performed By: #### DANIELLE Luong, HEPXA #### [facility] [place] [address] Area Secretary: Gabe Freedman MD Potassium [Moles/Vol] 4.0 mmol/L Normal 3.7-5.3 [facility] Comment on above: Result Comment: SPEC IMEN SLIGHTLY HEMOLYZED, RESULTS MAY BE ADVERSELY AFFECTED. Performed By: #### M Galen, BMP, HEPXA #### [facility] [address] [place] [address] Area Secretary: Gabe Freedman MD Protein [Mass/Vol] 6.7 g/dL Normal 6.6-8.7 [facility] Comment on above: Performed By: #### M G, BMP, HEPXA #### [facility] [place] [address] Area Secretary: Gabe Freedman MD Sodium [Moles/Vol] 142 mmol/L Normal 136-145 [facility] Comment on above: Performed By: #### M G, BMP, HEPXA #### [facility] [address] [place], [place] [phone] Area Secretary: Gabe Freedman MD Urea nitrogen [Mass/Vol] 35 mg/dL High 8-23 [facility] Comment on above: Performed By: #### M G, BMP, HEPXA #### [facility] [address] [place], [place] [id number] Area Secretary: Gabe Freedman MD Comprehensive Metabolic Pane [facility] 11-08-2023 Albumin [Mass/Vol] 3.7 g/dL 3.5 - 5.2 g/dL [facility] Albumin/Globulin [Mass ratio] 1.0 {ratio} 1.0 - 2.5 [facility] ALP [Catalytic activity/Vol] 86 U/L 35 - 104 U/L [facility] ALT [Catalytic activity/Vol] 100 U/L High 10 - 35 U/L [facility] Anion gap [Moles/Vol] 15 mmol/L 9 - 16 mmol/L [facility] AST [Catalytic activity/Vol] 72 U/L High 10 - 35 U/L [facility] Bilirubin [Mass/Vol] 0.7 mg/dL 0.00 - 1.20 mg/dL [facility] Calcium [Mass/Vol] 9.9 mg/dL 8.6 - 10. 4 mg/dL [facility] Chloride [Moles/Vol] 111 mmol/L High 98 - 10 7 mmol/L [facility] CO2 [Moles/Vol] 16 mmol/L Low 20 - 31 mmol/L [facility] Creatinine [Mass/Vol] 2.7 mg/dL High 0.50 - 0.90 mg/dL [facility] Est, Glom Filt Rate 20 Low - [facility] Glucose [Mass/Vol] 105 mg/dL High 74 - 99 mg/dL [facility] Potassium [Moles/Vol] 4.0 mmol/L 3.7 - 5.3 mmol/L [facility] Protein [Mass/Vol] 6.7 g/dL 6.6 - 8.7 g/dL [facility] Sodium [Moles/Vol] 142 mmol/L 136 - 145 mmol/L [facility] Urea nitrogen [Mass/Vol] 35 mg/dL High 8 - 23 mg/dL [facility] D-Dimer Teston 11-08-2023 D-Dimer Test 13.32 ug/mL FEU High 0.00-0.57 [facility] Comment on above: Result Comment: When combined with a low clinical probability, a D dimer value of <0.50 ug/mL FEU is considered negative for DVT and PE (negative predictive value of 98%, sensitivity of 97%). If this test is not being used to help rule out DVT and PE, then the following reference range should be utilized: 0.00 - 0.57 ug/mL FEU. The D-Dimer assay is intended for use as an aid in the diagnosis of venous thromboembolism (DVT and PE) and the results should be interpreted in conjunction with the patient's medical history, clinical presentation, and other findings. Elevated levels of D-dimer activity can be seen in any state of coagulation activation and is not recommended in patients with therapeutic dose anticoagulant therapy for >24 hours, fibrinolytic therapy within the previous 7 days, trauma or surgery within the previous 4 weeks, disseminated malignancies, aortic aneurysm, sepsis, severe infections, pneumonia, severe skin infections, liver cirrhosis, advanced age, coronary disease, diabetes, and . A very low percentage of patients with DVT may yield D-dimer results below the cutoff of 0.5 ug/mL FEU. This is known to be more prevalent in patients with distal DVT. Performed By: #### M G, BMP, HEPXA #### [facility] [place] [address] Area Secretary: Gabe Freedman MD D-Dimer, Quantitativeon 10-24 Fibrin D-dimer FEU (PPP) [Mass/Vol] 13.32 High [facility] Glucose,Whole Bloodon 2023 Glucose [Mass/Vol] 116 mg/dL High 65-105 [facility] Glucose [Mass/Vol] 63 mg/dL Low 65-105 [facility] Lactic Acidon 11-08-2023 Interpretation and review of laboratory results Abnormal [facility] Lactic Acid, Whole Blood 2.9 mmol/L High 0.7 - 2.1 mmol/L [facility] Lactic Acid,Whole Bl 2.9 mmol/L High 0.7-2.1 [facility] Comment on above: Performed By: #### M G, BMP, HEPXA #### [facility] [address] [place] [address] Area Secretary: Gabe Freedman MD No Panel Informationon 11-07 Interpretation and review of laboratory results Abnormal [facility] Interpretation and review of laboratory results Abnormal [facility] POC Glucose Fingerstickon Glucose [Mass/Vol] 116 mg/dL High 65 - 105 mg/dL [facility] Interpretation and review of laboratory results Abnormal [facility] Glucose [Mass/Vol] 63 mg/dL Low 65 - 105 mg/dL [facility] Interpretation and review of laboratory results Abnormal [facility] Procalcitoninon 11-08-2023 Interpretation and review of laboratory results Abnormal [facility] Procalcitonin [Mass/Vol] 0.27 ng/mL High 0.00 - 0.09 ng/mL [facility] Procalcitonin 0.27 ng/mL High 0.00-0.09 [facility] Comment on above: Result Comment: Suspected Sepsis: <0.50 ng/mL Low likelihood of sepsis. 0.50-2.00 ng/mL Increased likelihood of sepsis. Antibiotics encouraged. >2.00 ng/mL High risk of sepsis/shock. Antibiotics strongly encouraged. Suspected Lower Resp Tract Infections: <0.24 ng/mL Low likelihood of bacterial infection. >0.24 ng/mL Increased likelihood of bacterial infection. Antibiotics encouraged. With successful antibiotic therapy, PCT levels should decrease rapidly. (Half-life of 24 to 36 hours.) Procalcitonin values from samples collected within the first 6 hours of systemic infection may still be low. Retesting may be indicated. Values from day 1 and day 4 can be entered into the Change in Procalcitonin Calculator (www.jvyfzj-xgr-yipgjgkexw.com) to determine the patient's Mortality Risk Prognosis In healthy neonates, plasma Procalcitonin (PCT) concentrations increase gradually after , reaching peak values at about 24 hours of age then decrease to normal values below 0.5 ng/mL by 48-72 hours of age. Performed By: #### M DANIELLE Aaron, HEPXA #### [facility] [address] [place], [place] [id number] Area Secretary: Gabe Freedman MD Troponinon 11-08-2023 Interpretation and review of laboratory results Abnormal [facility] Troponin I.cardiac High sensitivity method [Mass/Vol] 197 ng/L Critically high 0 - 14 ng/L [facility] Troponin, High Sens 197 ng/L Critically high 0-14 [facility] Comment on above: Result Comment: High Sensitivity Troponin values cannot be compared with other Troponin methodologies. Previous Alert Value Reported Performed By: #### T ROPI ####[id number] [place], [place] [id number] Lab Director: Gabe Freedman MD Troponin I.cardiac High sensitivity method [Mass/Vol] 192 ng/L Critically high 0 - 14 ng/L [facility] Troponin, High Sens 192 ng/L Critically high 0-14 [facility] Comment on above: Result Comment: High Sensitivity Troponin values cannot be compared with other Troponin methodologies. Performed By: #### M DANIELLE Aaron, HEPXA #### [facility] [address], [place] [id number] Area Secretary: Gabe Freedman MD [place] 11-07-2023 Refill [id number] Ja Tavera 1960 F Date Provider Department Center 11/07/2023 [id number], OBI [facility] URO Second Fl Family History Problem Relation Age of Onset Lung cancer Father Liver cancer Father Family Status - Relation Status Age at Father Reason for Visit and Comments: Med Refill [[id number]] [facility] Follow-Upon 11-03-2023 Follow-Up [id number] Ja Tavera 1960 F Date Provider Department Center 11/03/2023 [facility] INF Deep Heal Family History Problem Relation Age of Onset Lung cancer Father Liver cancer Father Family Status - Relation Status Age at Father Level of Service:25414 NM OFFICE/OUTPATIENT ESTABLISHED LOW MDM 20 MIN [facility] 30on 10-23-2023 30 Daily Case Managemen t Update Multidisciplinary rounds have been completed. Barriers to Discharge: 10/22- VQ scan negative. Heparin discontinued. Continue IV Rocephin and AZA for infectious bronchiolitis. Nephro consult to manage immunosuppressive meds, Hx transplant 2006. Awaiting fungal panel prior to discharge. Denies home oxygen, currently on 2L [place]- qualifies per home oxygen evaluation. Oxygen All required information (Facesheet, Home o2 eval, F2F in progress note, Script) was obtained. Information faxed to [employer] for home oxygen needs. Received approval from the [employer] to give a tank. Pt given [employer] tank for transport home. Reminded the patient to call once home to get home oxygen supplies including tanks/concentrator delivered. Pt verbalized understanding. Company added to the AVS. Diet: Dietary Orders (From admission, onward) Start Ordered 10/19/23 2246 Regular Diet Diabetic Female (carb 45g/meal) Diet effective now Question Answer Comment Room Service? Yes Carbohydrate restriction: Diabetic Female (carb 45g/meal) 10/19/23 2254 Physician Expected Discharge Date: 10/23/2023 Discharge Delays: PT Six Click Score: 24 OT Six Click Score: PT Recommendations: OT Recommendations: New Consults: Consult Orders (From admission, onward) Start Ordered 10/20/23 0613 Inpatient consult to Nephrology Once Specialty: Nephrology Provider: (Not yet assigned) Question Answer Comment [facility] [employer] NEPHROLOGY TEAM Reason for Consult? bladder cancer on IV chemo; s/p renal transplan on immunosuppresison therapy Level of Consultation Consultation and Management 10/20/23 0612 [facility] BASIC METABOLIC PANELon 08-3 Anion gap [Moles/Vol] 12 mmol/L Normal 7-20 [facility] Comment on above: Performed By: #### L [id number] #### [facility] [address] [place] [address] Calcium [Mass/Vol] 8.5 mg/dL Low 8.6-10.3 [facility] Comment on above: Performed By: #### L [id number] #### [facility] (BEAK[facility]) [address] [place] [address] Chloride [Moles/Vol] 109 mmol/L High 98-107 [facility] Comment on above: Performed By: #### L [id number] #### [facility] ([facility] [address] [place] [address] CO2 [Moles/Vol] 22 mmol/L Normal 21-31 [facility] Comment on above: Performed By: #### L [id number] #### [facility] ([facility] [address] [place] [address] Creatinine [Mass/Vol] 2.40 mg/dL High 0.60-1.20 [facility] Comment on above: Performed By: #### L [id number] #### [facility] ([facility]) [address] [place] [address] GLOMERULAR FILTRATION RATE ML/MIN/1.73 SQ M.PREDICTED 22.3 mL/min/1.73m*2 Low >60.0 [facility] Comment on above: Result Comment: The [facility]???s estimated glomerular filtration rate (eGFR) will no longer include consideration of race in its calculation. The National Kidney Foundation???s eGFR Task Force developed new recommendations for the estimation of the glomerular filtration rate in the [place] They recommend immediate implementation of the new equation refit without the race variable in all laboratories because the calculation does not include race. In addition to not including race in the calculation and reporting, it included diversity in its development, and has acceptable performance characteristics and potential consequences that do not disproportionately affect any one group of individuals. Performed By: #### L [id number] #### [facility] (BEAKER) [address] [place] [address] Glucose [Mass/Vol] 116 mg/dL High 70-100 [facility] Comment on above: Performed By: #### L [id number] #### [facility] (BEAKER) [address] [place] [address] Potassium [Moles/Vol] 4.2 mmol/L Normal 3.5-5.1 [facility] Comment on above: Performed By: #### L [id number] #### [facility] (BEAKER) [address] [place] [address] Sodium [Moles/Vol] 139 mmol/L Normal 136-145 [facility] Comment on above: Performed By: #### L [id number] #### [facility] ([facility] [address] [place] [address] Urea nitrogen [Mass/Vol] 41 mg/dL High 7-25 [facility] Comment on above: Performed By: #### L [id number] #### [facility] (BEAKER) [address] [place] [address] UREA NITROGEN/CREATININE (MASS RATIO) IN SER/PLAS 17.1 Normal [facility] Comment on above: Performed By: #### L [id number] #### [facility] ([facility]) [address] [place] [address] CONSULTon 10-23-2023 CONSULT Infectious Diseases - Initial Consult Note - Patient name: Ja Tavera Patient Today's Date and Time: 10/23/2023, 12:42 PM Admission Date: 10/19/2023 Impression: Shortness of breath Dyspnea with exertion CAP Bladder cancer on intervesicular chemotherapy Renal transplant in 2006 Worsening shortness of breath over approximately 6 months, noted hypoxia on her PCP's office. CT chest revealed some ground glass opacities in the lingula, no large cavitary lesions, does not have significant nodularity Clinically responded to Ceftriaxone and azithromycin. Cryptococcal antigen is negative. Fungitell is indeterminate low level at 70. Her immunosuppression has been stable, No travel, no obvious sick contacts. 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 She does occasionally take care of chickens some times. Does not spend a lot of time with the cattle, though some calves were born this year. No recurrent fever or chills. Would check histoplasma and coxiella though seems less likely. Recommendations: Complete cefepime and azithormcin Follow up Histoplasma antigen/antibodies, follow up q fever Though seems unlikely given length of symptoms and current CT findings. Would have her follow up with ID Repeat CT chest in 4-6 weeks Ok to discharge Subjective Reason for consultation / Chief complaint: PNA, possible PJP, + B Glucan, immunocompromised indeterminate 1,3 b,d glucan Referring Provider: History of Present Illness Ja Tavera is a 63 y.o.-year-old female who was initially admitted on 10/19/2023. Past medical history significant for bladder cancer on chemotherapy, hypertension, renal transplant 2007 maintained on stable immunosuppressive medications and prediabetes. Patient's most recent chemotherapy infusion was 3 days ago she presented to [facility] ED per direction of her PCP for evaluation of shortness of breath. She reports that she has had shortness of breath for approximately 1 year and has gotten worse over the last 6 months. She has noted worsening exertional dyspnea and found that ambulating even a few feet made her very short of breath. She had gone to her PCP who noted hypoxia in the office but otherwise clear lungs on exam. She is encouraged to come to the ED to rule out blood clots, pneumonia and asthma. Initial presentation patient was hypoxic with exertion and ambulation. On conversation she was saturating 88 to 91% on room air. No noted hypoxia at rest. Otherwise she denied associated chest pain, nausea, vomiting, diarrhea, constipation. No abdominal pain, no fevers no chills no night sweats no weight loss. No pain over transplanted kidney. She is not aware of any obvious sick contacts. She did have an episode of COVID approximately 2 to 3 years ago. In the ED chest x-ray showed consolidation in the lingula and a nodular focus within the right lateral lower lung juxtapleural measuring approximately [address] chest without contrast was ordered which showed subtle groundglass changes in the lingula likely infectious bronchiolitis. Laboratory workup was significant for an elevated D-dimer and this was followed with a VQ scan which was negative for obvious PEs. Patient was noted to be hyperglycemic upon presentation glucose of 200 BNP mildly elevated 178 and a leukocytosis of 11.63. Rapid COVID was negative. She was started on IV Rocephin and IV azithromycin for infectiousbronchiolit is. Over the course of the hospital stay patient states her shortness of breath has improved she clinically is feeling better. She has ambulated around her room and says the dyspnea does not sit on as quickly as it did previously. [place]. 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 The cattle are free range she states she does not often take care of the chickens and the animals but she does interact with them from time to time. 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 Past Medical History: Past Medical History: Diagnosis Date Bladder cancer (CMS/HCC) Diabetes mellitus (CMS/HCC) Hypercholesteremia Hypertension Past Surgical History: Past Surgical History: Procedure Laterality Date COLONOSCOPY NEPHRECTOMY THYROID SURGERY TONSILLECTOMY Medications: Scheduled: [START ON 10/25/2023] alendronate, 35 mg, oral, q7 days atorvastatin, 40 mg, oral, Nightly carvedilol, 12.5 mg, oral, BID with meals cefTRIAXone, 1 g, intravenous, q24h [Held by provider] everolimus, 0.75 mg, oral, BID famotidine, 20 mg, oral, Daily febuxostat, 40 mg, oral, Daily insulin lispro, 0-5 Units, subcutaneous, TID with meals And insulin lispro, 0-4 Units, subcutaneous, Nightly levothyroxine, 150 mcg, oral, Daily magnesium oxide, 400 mg, oral, Daily predniSONE, 10 mg, oral, Daily sodium bicarbonate, 650 mg, oral, BID tacrolimus, 0.5 mg, oral, BID BETA (more content not included)... Normal [facility] EVEROLIMUS, QUANTITATIVEon 0 10-23-2023 EVEROLIMUS BY HPLC-MS/MS 2.7 ng/mL Normal [facility] Comment on above: Result Comment: Ther apeutic Range: Kidney transplant (in combination with Cyclosporine): 3-8 ng/mL Liver transplant (in combination with Tacrolimus): 3-8 ng/mL Toxic value: Greater than 15 ng/mL Everolimus marketed as Zortress is FDA approved for prophylaxis of organ rejection in adult patients receiving a kidney and liver transplant. Everolimus marketed as Afinitor is FDA approved for the treatment of renal cell carcinoma and for the treatment of subependymal giant cell astrocytoma (SEGA) associated with tuberous sclerosis (TS) in patients who are not candidates for curative surgical resection. The suggested therapeutic range for treatment of SEGA is 5-15 ng/mL, which is based on a predose (trough) specimen. The optimal therapeutic range for a given patient may differ from this suggested range based on the indication for therapy, treatment phase (initiation or maintenance), use in combination with other drugs, time of specimen collection relative to prior dose, type of transplanted organ, and/or the therapeutic approach of the transplant center. This test was developed and its performance characteristics determined by [facility]. It has not been cleared or approved by the US Food and Drug Administration. This test was performed in a CLIA certified laboratory and is intended for clinical purposes. Performed By: [facility] [address] [place] [address] [employer] Referee: Young Lopez MD, PhD CLIA Number: [id number] Performed By: #### L [id number] #### [facility] ([facility]AKER) [address] [place] [address] HISTOPLASMA ANTIBODIESon HISTOPLASMA AB, ID Not detected Normal Not Detected Un [facility] Comment on above: Result Comment: No Histoplasma antibodies were detected. This result does not exclude Histoplasma infection. Performed By: [facility] [address] [place] [id number] [employer] Referee: Young Lopez MD, PhD CLIA Number: [id number] Performed By: #### L [id number] #### [facility] (BEAKER) [address] [place] [address] HISTOPLASMA MYCELIA CF <1:8 Normal <1:8 [facility] Comment on above: Result Comment: INTE RPRETIVE INFORMATION: Histoplasma Mycelia Antibodies by CF A titer of 1:8 or greater is generally considered presumptive evidence of histoplasmosis. A titer of 1:32 or greater or rising titers indicate strong presumptive evidence of histoplasmosis. Cross reactions, usually at lower titers, may occur with other fungal diseases. Performed By: #### L [id number] #### [facility] (BEAKER) [address] [place] [address] HISTOPLASMA YEAST CF <1:8 Normal <1:8 [facility] Comment on above: Result Comment: INTE RPRETIVE INFORMATION: Histoplasma Yeast Antibodies by CF A titer of 1:8 or greater is generally considered presumptive evidence of histoplasmosis. A titer of 1:32 or greater or rising titers indicate strong presumptive evidence of histoplasmosis. Cross reactions, usually at lower titers, may occur with other fungal diseases. Performed By: #### L [id number] #### [facility] ([facility]) [address] [place] [address] LACTATE DEHYDROGENASEon 09-25 LACTATE DEHYDROGENASE (U/L) IN SER/PLAS BY LAC->PYR RXN 239 U/L Normal 140-271 [facility] Comment on above: Performed By: #### L [id number] #### [facility] ([facility]) [address] [place] [address] MAGNESIUMon 10-23-2023 Magnesium [Mass/Vol] 1.8 mg/dL Low 1.9-2.7 [facility] Comment on above: Performed By: #### L [id number] #### [facility] ([facility]) [address] [place] [address] NURSNOTEon 10-23-2023 NURSNOTE Patient educated on the need of 3 liters continuous home oxygen. No questions or concerns at this time. HOME O2 EVAL REVIEWED AND PATIENT REQUIRES OXYGEN DUE TO SPO2 84% ON ROOM AIR WITH AMBULATION. Normal [facility] PHOSPHORUSon 10-23-2023 Magnesium [Mass/Vol] 4.0 mg/dL Normal 2.5-5.0 [facility] Comment on above: Performed By: #### L [id number] #### [facility] ([facility]) [address] [place] [address] POCT GLUCOSE METER UNSOLICIT ED RESULTSon 10-23-2023 Glucose [Mass/Vol] 225 mg/dL High 70-105 [facility] Comment on above: Order Comment: Waive d Testing in the ED is performed under the ED CLIA certificate #[id number]. Result Comment: [email or web address] Performed By: #### L [id number] #### [facility] ([facility]) [address] [place] [address] Glucose [Mass/Vol] 114 mg/dL High 70-105 [facility] Comment on above: Order Comment: Waive d Testing in the ED is performed under the ED CLIA certificate #[id number]. Result Comment: [email or web address] Performed By: #### L [id number] #### [facility] ([facility] [address] [place] [address] TACROLIMUS LEVELon Tacrolimus (Bld) [Mass/Vol] 5.5 ng/mL Normal 5.0-20.0 [facility] Comment on above: Result Comment: The [employer] Tacrolimus assay is a delayed one-step immunoassay for the quantitative determination of tacrolimus in human whole blood using the chemiluminescent microparticle immunoassay (CMIA) technology with flexible assay protocols, referred to as Chemiflex. Performed By: #### L [id number] #### [facility] ([facility]) [address] [place] [address] 30on 10-22-2023 30 The patient is Moderately Stable - Low risk of patient condition declining or worsening The patient's goals for the shift include comfort The clinical goals for the shift include VSS, comfort Problem: Pain - Adult Goal: Verbalizes/displays adequate comfort level or baseline comfort level Outcome: Progressing Problem: Safety - Adult Goal: Free from fall injury Outcome: Progressing Problem: Discharge Planning Goal: Discharge to home or other facility with appropriate resources Outcome: Progressing Problem: Chronic Conditions and Co-morbidities Goal: Patient's chronic conditions and co-morbidity symptoms are monitored and maintained or improved Outcome: Progressing Normal [facility] 30 Problem: Pain - Adul t Goal: Verbalizes/displays adequate comfort level or baseline comfort level Outcome: Progressing Problem: Safety - Adult Goal: Free from fall injury Outcome: Progressing Problem: Discharge Planning Goal: Discharge to home or other facility with appropriate resources Outcome: Progressing Problem: Chronic Conditions and Co-morbidities Goal: Patient's chronic conditions and co-morbidity symptoms are monitored and maintained or improved Outcome: Progressing The patient is Moderately Stable - Low risk of patient condition declining or worsening The patient's goals for the shift include comfort The clinical goals for the shift include VSS, comfort Normal [facility] 30 The patient is Moderately Stable - Low risk of patient condition declining or worsening The patient's goals for the shift include comfort The clinical goals for the shift include stable vitals Problem: Pain - Adult Goal: Verbalizes/displays adequate comfort level or baseline comfort level Outcome: Progressing Flowsheets (Taken 10/21/20232099) Verbalizes/displays adequate comfort level or baseline comfort level: Encourage patient to monitor pain and request assistance Problem: Safety - Adult Goal: Free from fall injury Outcome: Progressing Flowsheets (Taken 10/21/20232099) Free from fall injury: Assess patient frequently for physical needs Problem: Discharge Planning Goal: Discharge to home or other facility with appropriate resources Outcome: Progressing Flowsheets (Taken 10/21/20232099) Discharge to home or other facility with appropriate resources: Identify barriers to discharge with patient and caregiver Problem: Chronic Conditions and Co-morbidities Goal: Patient's chronic conditions and co-morbidity symptoms are monitored and maintained or improved Outcome: Progressing Flowsheets (Taken 10/21/20232099) Care Plan - Patient's Chronic Conditions and Co-Morbidity Symptoms are Monitored and Maintained or Improved: Monitor and assess patient's chronic conditions and comorbid symptoms for stability, deterioration, or improvement Normal [facility] BASIC METABOLIC PANELon 08-2 Anion gap [Moles/Vol] 13 mmol/L Normal 7-20 [facility] Comment on above: Performed By: #### L [id number] #### [facility] ([facility]) [address] [place] [address] Calcium [Mass/Vol] 9.1 mg/dL Normal 8.6-10.3 [facility] Comment on above: Performed By: #### L [id number] #### [facility] ([facility]) [address] [place] [address] Chloride [Moles/Vol] 109 mmol/L High 98-107 [facility] Comment on above: Performed By: #### L [id number] #### [facility] ([facility]) [address] [place] [address] CO2 [Moles/Vol] 20 mmol/L Low 21-31 [facility] Comment on above: Performed By: #### L [id number] #### [facility] [address] [place] [address] Creatinine [Mass/Vol] 2.28 mg/dL High 0.60-1.20 [facility] Comment on above: Performed By: #### L [id number] #### [facility] ([facility]) [address] [place] [address] GLOMERULAR FILTRATION RATE ML/MIN/1.73 SQ M.PREDICTED 23.7 mL/min/1.73m*2 Low >60.0 [facility] Comment on above: Result Comment: The [facility]???s estimated glomerular filtration rate (eGFR) will no longer include consideration of race in its calculation. The National Kidney Foundation???s eGFR Task Force developed new recommendations for the estimation of the glomerular filtration rate in the [place] They recommend immediate implementation of the new equation refit without the race variable in all laboratories because the calculation does not include race. In addition to not including race in the calculation and reporting, it included diversity in its development, and has acceptable performance characteristics and potential consequences that do not disproportionately affect any one group of individuals. Performed By: #### L [id number] #### [facility] ([facility] [address] [place] [address] Glucose [Mass/Vol] 135 mg/dL High 70-100 [facility] Comment on above: Performed By: #### L [id number] #### [facility] ([facility]) [address] [place] [address] Potassium [Moles/Vol] 3.9 mmol/L Normal 3.5-5.1 [facility] Comment on above: Performed By: #### L [id number] #### [facility] ([facility]) [address] [place] [address] Sodium [Moles/Vol] 138 mmol/L Normal 136-145 [facility] Comment on above: Performed By: #### L [id number] #### [facility] (BEAKER) [address] [place] [address] Urea nitrogen [Mass/Vol] 41 mg/dL High 7-25 [facility] Comment on above: Performed By: #### L [id number] #### [facility] ([facility]) [address] [place] [address] UREA NITROGEN/CREATININE (MASS RATIO) IN SER/PLAS 18.0 Normal [facility] Comment on above: Performed By: #### L [id number] #### [facility] ([facility]) [address] [place] [address] CBCon 10-22-2023 Erythrocyte distribution width (RBC) [Ratio] 13.5 % Normal 11.5-15.0 [facility] Comment on above: Performed By: #### L [id number] #### [facility] ([facility] [address] [place] [address] ERYTHROCYTE MEAN CORPUSCULAR HEMOGLOBIN CONCENTRATION (G/DL) BY AUTOMATED 32.7 g/dL Normal 32.0-35.0 [facility] Comment on above: Performed By: #### L [id number] #### [facility] ([facility]) [address] [place] [address] Hematocrit (Bld) [Volume fraction] 44.7 % Normal 36.0-48.0 [facility] Comment on above: Performed By: #### L [id number] #### [facility] ([facility]) [address] [place] [address] Hemoglobin (Bld) [Mass/Vol] 14.6 g/dL Normal 12.0-15.0 [facility] Comment on above: Performed By: #### L [id number] #### [facility] ([facility]) [address] [place] [address] MCH (RBC) [Entitic mass] 28.1 pg Normal 27.0-33.0 [facility] Comment on above: Performed By: #### L [id number] #### [facility] ([facility]) [address] [place] [address] MCV (RBC) [Entitic vol] 86.0 fL Normal 82.0-98.0 [facility] Comment on above: Performed By: #### L [id number] #### [facility] ([facility]) [address] [place] [address] PLATELETS (10*3/UL) IN BLOOD AUTOMATED COUNT 159 10*3/uL Normal 150-400 [facility] Comment on above: Performed By: #### L [id number] #### [facility] ([facility] [address] [place] [address] RBC (Bld) [#/Vol] 5.20 10*6/uL High 3.80-5.[address] [facility] Comment on above: Performed By: #### L [id number] #### [facility] (BEAKER) [address] [place] [address] WBC (Bld) [#/Vol] 10.33 10*3/uL Normal 4.00-10.60 [facility] Comment on above: Performed By: #### L [id number] #### [facility] ([facility]) [address] [place] [address] EVEROLIMUS, QUANTITATIVEon 0 10-22-2023 EVEROLIMUS BY HPLC-MS/MS 5.0 ng/mL Normal [facility] Comment on above: Result Comment: Ther apeutic Range: Kidney transplant (in combination with Cyclosporine): 3-8 ng/mL Liver transplant (in combination with Tacrolimus): 3-8 ng/mL Toxic value: Greater than 15 ng/mL Everolimus marketed as Zortress is FDA approved for prophylaxis of organ rejection in adult patients receiving a kidney and liver transplant. Everolimus marketed as Afinitor is FDA approved for the treatment of renal cell carcinoma and for the treatment of subependymal giant cell astrocytoma (SEGA) associated with tuberous sclerosis (TS) in patients who are not candidates for curative surgical resection. The suggested therapeutic range for treatment of SEGA is 5-15 ng/mL, which is based on a predose (trough) specimen. The optimal therapeutic range for a given patient may differ from this suggested range based on the indication for therapy, treatment phase (initiation or maintenance), use in combination with other drugs, time of specimen collection relative to prior dose, type of transplanted organ, and/or the therapeutic approach of the transplant center. This test was developed and its performance characteristics determined by [facility]. It has not been cleared or approved by the US Food and Drug Administration. This test was performed in a CLIA certified laboratory and is intended for clinical purposes. Performed By: [facility] [address] [place] [id number] [employer] Referee: Young Lopez MD, PhD CLIA Number: [id number] Performed By: #### L [id number] #### [facility] ([facility]) [address] [place] [address] POCT GLUCOSE METER UNSOLICIT ED RESULTSon 10-22-2023 Glucose [Mass/Vol] 203 mg/dL High 70-105 [facility] Comment on above: Order Comment: Waive d Testing in the ED is performed under the ED CLIA certificate #[id number]. Result Comment: [email or web address] row Performed By: #### L [id number] #### [facility] ([facility]) [address] [place] [id number] Glucose [Mass/Vol] 203 mg/dL High 70-105 [facility] Comment on above: Order Comment: Waive d Testing in the ED is performed under the ED CLIA certificate #[id number]. Result Comment: [email or web address] [email or web address] Performed By: #### L [id number] #### [facility] ([facility]) [address] [place] [address] Glucose [Mass/Vol] 248 mg/dL High 70-105 [facility] Comment on above: Order Comment: Waive d Testing in the ED is performed under the ED CLIA certificate #[id number]. Result Comment: [email or web address] Performed By: #### L [id number] #### [facility] [address] [place] [address] Glucose [Mass/Vol] 205 mg/dL High 70-105 [facility] Comment on above: Order Comment: Waive d Testing in the ED is performed under the ED CLIA certificate #[id number]. Result Comment: [email or web address] Performed By: #### L [id number] #### [facility] ([facility]) [address] [place] [address] Glucose [Mass/Vol] 100 mg/dL Normal 70-105 [facility] Comment on above: Order Comment: Waive d Testing in the ED is performed under the ED CLIA certificate #[id number]. Result Comment: [email or web address] [email or web address] Performed By: #### L [id number] #### [facility] ([facility]) [address] [place] [address] TACROLIMUS LEVELon Tacrolimus (Bld) [Mass/Vol] 6.7 ng/mL Normal 5.0-20.0 [facility] Comment on above: Result Comment: The [employer] Tacrolimus assay is a delayed one-step immunoassay for the quantitative determination of tacrolimus in human whole blood using the chemiluminescent microparticle immunoassay (CMIA) technology with flexible assay protocols, referred to as Chemiflex. Performed By: #### L [id number] #### [facility] [address] [place] [address] 30on 10-21-2023 30 Daily Case Managemen t Update Multidisciplinary rounds have been completed. Barriers to Discharge: VQ scan negative. Heparin discontinued. Continue IV Rocephin and AZA for infectious bronchiolitis. Nephro consult to manage immunosuppressive meds. Awaiting fungal panel prior to discharge. Plan is to discharge home with . Diet: Dietary Orders (From admission, onward) Start Ordered 10/19/23 2246 Regular Diet Diabetic Female (carb 45g/meal) Diet effective now Question Answer Comment Room Service? Yes Carbohydrate restriction: Diabetic Female (carb 45g/meal) 10/19/23 2254 Physician Expected Discharge Date: 10/22/2023 Discharge Delays: PT Six Click Score: 24 OT Six Click Score: PT Recommendations: OT Recommendations: Does patient understand post acute plan of care? Yes Is expected discharge disposition appropriate for patient?: Yes New Consults: Consult Orders (From admission, onward) Start Ordered 10/20/23 0613 Inpatient consult to Nephrology Once Specialty: Nephrology Provider: (Not yet assigned) Question Answer Comment Consulting Group NEPHROLOGY TEAM Reason for Consult? bladder cancer on IV chemo; s/p renal transplan on immunosuppresison therapy Level of Consultation Consultation and Management 10/20/23 0612 Normal [facility] 30 The patient is Moderately Stable - Low risk of patient condition declining or worsening The patient's goals for the shift include improve sob, all required testing completed, comfort The clinical goals for the shift include stable vitals, labs stable, Heparin gtt within therapeutic level, comfort Over the shift, the patient did not make progress toward the following goals. Normal [facility] 30 The patient is Moderately Stable - Low risk of patient condition declining or worsening The patient's goals for the shift include improve sob The clinical goals for the shift include stable vitals Problem: Pain - Adult Goal: Verbalizes/displays adequate comfort level or baseline comfort level Outcome: Progressing Flowsheets (Taken 10/21/20234) Verbalizes/displays adequate comfort level or baseline comfort level: Encourage patient to monitor pain and request assistance Problem: Safety - Adult Goal: Free from fall injury Outcome: Progressing Flowsheets (Taken 10/21/2023 0000) Free from fall injury: Assess patient frequently for physical needs Problem: Discharge Planning Goal: Discharge to home or other facility with appropriate resources Outcome: Progressing Flowsheets (Taken 10/21/20234) Discharge to home or other facility with appropriate resources: Identify barriers to discharge with patient and caregiver Problem: Chronic Conditions and Co-morbidities Goal: Patient's chronic conditions and co-morbidity symptoms are monitored and maintained or improved Outcome: Progressing Flowsheets (Taken 10/21/202343) Care Plan - Patient's Chronic Conditions and Co-Morbidity Symptoms are Monitored and Maintained or Improved: Monitor and assess patient's chronic conditions and comorbid symptoms for stability, deterioration, or improvement Normal [facility] BASIC METABOLIC PANELon 08-2 Anion gap [Moles/Vol] 12 mmol/L Normal 7-20 [facility] Comment on above: Performed By: #### L [id number] #### [facility] ([facility]) [address] [place] [address] Calcium [Mass/Vol] 9.1 mg/dL Normal 8.6-10.3 [facility] Comment on above: Performed By: #### L [id number] #### [facility] ([facility]) [address] [place] [address] Chloride [Moles/Vol] 111 mmol/L High 98-107 [facility] Comment on above: Performed By: #### L [id number] #### [facility] ([facility]) [address] [place] [address] CO2 [Moles/Vol] 22 mmol/L Normal 21-31 [facility] Comment on above: Performed By: #### L [id number] #### [facility] ([facility]) [address] [place] [address] Creatinine [Mass/Vol] 2.59 mg/dL High 0.60-1.20 [facility] Comment on above: Performed By: #### L [id number] #### [facility] ([facility]) [address] [place] [address] GLOMERULAR FILTRATION RATE ML/MIN/1.73 SQ M.PREDICTED 20.3 mL/min/1.73m*2 Low >60.0 [facility] Comment on above: Result Comment: The [facility]???s estimated glomerular filtration rate (eGFR) will no longer include consideration of race in its calculation. The National Kidney Foundation???s eGFR Task Force developed new recommendations for the estimation of the glomerular filtration rate in the [place] They recommend immediate implementation of the new equation refit without the race variable in all laboratories because the calculation does not include race. In addition to not including race in the calculation and reporting, it included diversity in its development, and has acceptable performance characteristics and potential consequences that do not disproportionately affect any one group of individuals. Performed By: #### L [id number] #### [facility] ([facility]) [address] [place] [address] Glucose [Mass/Vol] 76 mg/dL Normal 70-100 [facility] Comment on above: Performed By: #### L [id number] #### [facility] ([facility]) [address] [place] [address] Potassium [Moles/Vol] 4.1 mmol/L Normal 3.5-5.1 [facility] Comment on above: Performed By: #### L [id number] #### [facility] [address] [place] [address] Sodium [Moles/Vol] 141 mmol/L Normal 136-145 [facility] Comment on above: Performed By: #### L [id number] #### [facility] ([facility]) [address] [place] [address] Urea nitrogen [Mass/Vol] 37 mg/dL High 7-25 [facility] Comment on above: Performed By: #### L [id number] #### [facility] ([facility]) [address] [place] [address] UREA NITROGEN/CREATININE (MASS RATIO) IN SER/PLAS 14.3 Normal [facility] Comment on above: Performed By: #### L [id number] #### [facility] ([facility]) [address] [place] [address] EVEROLIMUS, QUANTITATIVEon 0 10-21-2023 EVEROLIMUS BY HPLC-MS/MS 5.1 ng/mL Normal [facility] Comment on above: Result Comment: Ther apeutic Range: Kidney transplant (in combination with Cyclosporine): 3-8 ng/mL Liver transplant (in combination with Tacrolimus): 3-8 ng/mL Toxic value: Greater than 15 ng/mL Everolimus marketed as Zortress is FDA approved for prophylaxis of organ rejection in adult patients receiving a kidney and liver transplant. Everolimus marketed as Afinitor is FDA approved for the treatment of renal cell carcinoma and for the treatment of subependymal giant cell astrocytoma (SEGA) associated with tuberous sclerosis (TS) in patients who are not candidates for curative surgical resection. The suggested therapeutic range for treatment of SEGA is 5-15 ng/mL, which is based on a predose (trough) specimen. The optimal therapeutic range for a given patient may differ from this suggested range based on the indication for therapy, treatment phase (initiation or maintenance), use in combination with other drugs, time of specimen collection relative to prior dose, type of transplanted organ, and/or the therapeutic approach of the transplant center. This test was developed and its performance characteristics determined by [facility]. It has not been cleared or approved by the US Food and Drug Administration. This test was performed in a CLIA certified laboratory and is intended for clinical purposes. Performed By: [facility] [address] [place] [address] [employer] Referee: Young Lopez MD, PhD CLIA Number: [id number] Performed By: #### L [id number] #### [facility] ([facility]) [address] [place] [address] Orders Onlyon 10-21-2023 Orders Only [id number] Ja Tavera 1960 F Date Provider Department [facility] 10/21/2023 ESTEBAN [facility] Family History Problem Relation Age of Onset Lung cancer Father Liver cancer Father Family Status - Relation Status Age at Father Normal [facility] POCT GLUCOSE METER UNSOLICIT ED RESULTSon 10-21-2023 Glucose [Mass/Vol] 222 mg/dL High 70-105 [facility] Comment on above: Order Comment: Waive d Testing in the ED is performed under the ED CLIA certificate #[id number]. Result Comment: [email or web address] Performed By: #### L [id number] #### [facility] ([facility]) [address] [place] [address] Glucose [Mass/Vol] 231 mg/dL High 70-105 [facility] Comment on above: Order Comment: Waive d Testing in the ED is performed under the ED CLIA certificate #[id number]. Result Comment: [email or web address] Performed By: #### L [id number] #### [facility] ([facility]) [address] [place] [address] Glucose [Mass/Vol] 195 mg/dL High 70-105 [facility] Comment on above: Order Comment: Waive d Testing in the ED is performed under the ED CLIA certificate #[id number]. Result Comment: [email or web address] Performed By: #### L AB90 #### [facility] ([facility]) [address] [place] [address] Glucose [Mass/Vol] 195 mg/dL High 70-105 [facility] Comment on above: Order Comment: Waive d Testing in the ED is performed under the ED CLIA certificate #[id number]. Result Comment: [email or web address] Performed By: #### L [id number] #### [facility] ([facility]) [address] [place] [address] TACROLIMUS LEVELon 4 Tacrolimus (Bld) [Mass/Vol] 6.0 ng/mL Normal 5.0-20.0 [facility] Comment on above: Result Comment: The [employer] Tacrolimus assay is a delayed one-step immunoassay for the quantitative determination of tacrolimus in human whole blood using the chemiluminescent microparticle immunoassay (CMIA) technology with flexible assay protocols, referred to as Chemiflex. Performed By: #### L [id number] #### [facility] ([facility]) [address] [place] [address] 1,5-KMZI-R-GLUCANon 10-20-19 24 (1,3)-GPYS-M-FPZNHF 70 pg/mL Normal [facility] Comment on above: Performed By: #### L [id number] #### [facility] ([facility]) [address] [place] [address] (1,3)-JIAV-I-AMNWPB INTERPRETATION Indeterminate Abnormal Negative [facility] Comment on above: Result Comment: INTE RPRETIVE INFORMATION: (1,3)-jgfd-C-oudnlk (Fungitell) Less than 31 pg/mL ................... Negative 31-59 pg/mL .......................... Negative 60-79 pg/mL .......................... Indeterminate Greater than or equal to 80 pg/mL .... Positive The Fungitell test is indicated for presumptive diagnosis of fungal infection and should be used in conjunction with other diagnostic procedures. This test does not detect certain fungal species such as Cryptococcus, which produce very low levels of (1,3)-amxa-Y-nebzax. This test will not detect the zygomycetes, such as Absidia, Mucor, and Rhizopus, which are not known to produce (1,3)-gklt-L-wuhjrx. In addition, the yeast phase of Blastomyces dermatitidis produces little (1,3)-gmsx-H-tcnvvz and may not be detected by the assay. Performed By: [facility] [address] [place] [address] [employer] Referee: Young Lopez MD, PhD CLIA Number: [id number] Performed By: #### L [id number] #### [facility] ([facility]) [address] [place] [address] 30on 10-20-2023 30 Daily Case Managemen t Update Multidisciplinary rounds have been completed. Barriers to Discharge: Patient presented from home with SOB. Currently receiving IV chemo for bladder cancer. Last chemo 3 days ago[address] Supplemental 02. [address] shows possible covid pneumonia/ infectious bronchiolitis. IV Rocephin and AZA started. VQ scan to r/o PE. Heparin gtt started. Patient is from home with . Diet: Dietary Orders (From admission, onward) Start Ordered 10/19/23 2246 Regular Diet Diabetic Female (carb 45g/meal) Diet effective now Question Answer Comment Room Service? Yes Carbohydrate restriction: Diabetic Female (carb 45g/meal) 10/19/23 2254 Physician Expected Discharge Date: 10/22/2023 Discharge Delays: PT Six Click Score: 24 OT Six Click Score: PT Recommendations: OT Recommendations: Is expected discharge disposition appropriate for patient?: Yes New Consults: Consult Orders (From admission, onward) Start Ordered 10/20/23 0613 Inpatient consult to Nephrology Once Specialty: Nephrology Provider: (Not yet assigned) Question Answer Comment Consulting Group NEPHROLOGY TEAM Reason for Consult? bladder cancer on IV chemo; s/p renal transplan on immunosuppresison therapy Level of Consultation Consultation and Management 10/20/23 0612 Normal [facility] 30 The patient is Moderately Stable - Low risk of patient condition declining or worsening The patient's goals for the shift include comfort, SOB resolving, labs stable The clinical goals for the shift include safety, comfort, VS/labs stable Normal [facility] 30 The patient is Moderately Stable - Low risk of patient condition declining or worsening The patient's goals for the shift include comfort The clinical goals for the shift include safety [facility] 30 The patient is Moderately Stable - Low risk of patient condition declining or worsening The patient's goals for the shift include comfort The clinical goals for the shift include safety Normal [facility] ANTI-XA (HEPARIN LEVEL)on HEPARIN UNFRACTIONATED (U/ML) IN PPP BY CHROMOGENIC METHOD 0.75 IU/mL High 0.3-0.7 [facility] Comment on above: Order Comment: Check anti-Xa level every 6 hours while on heparin infusion, or per protocol. Result Comment: Alicia roxaban and Apixaban will interfere with the anti Xa assay used to monitor UFH and LMWH. Performed By: #### L [id number] #### [facility] ([facility]) [address] [place] [address] HEPARIN UNFRACTIONATED (U/ML) IN PPP BY CHROMOGENIC METHOD >1.00 Critically high 0.3-0.7 [facility] Comment on above: Order Comment: Check anti-Xa level every 6 hours while on heparin infusion, or per protocol. Result Comment: [place] roxaban and Apixaban will interfere with the anti Xa assay used to monitor UFH and LMWH. Performed By: #### L [id number] #### [facility] ([facility]) [address] [place] [address] HEPARIN UNFRACTIONATED (U/ML) IN PPP BY CHROMOGENIC METHOD 0.81 IU/mL High 0.3-0.7 [facility] Comment on above: Order Comment: Check anti-Xa level every 6 hours while on heparin infusion, or per protocol. Result Comment: Alicia roxaban and Apixaban will interfere with the anti Xa assay used to monitor UFH and LMWH. Performed By: #### L [id number] #### [facility] ([facility]) [address] [place] [address] ASPERGILLUS GALACTOMANNAN AN TIGENon 10-20-2023 ASPERGILLUS GALACTOMANNAN ANTIGEN, SERUM Negative Normal Negative [facility] Comment on above: Result Comment: INTE RPRETIVE INFORMATION: Aspergillus Galactomannan Antigen by EIA Negative results do not exclude the diagnosis of invasive aspergillosis. A single positive test result (index equal to or greater than 0.5) should be clinically correlated by testing a separate serum specimen because many agents (e.g. foods, antibiotics) may cross-react with the test. If invasive aspergillosis is suspected in high-risk patients, serial sampling is recommended. Performed By: [facility] [address] [place] [address] [employer] Referee: Young Lopez MD, PhD CLIA Number: [id number] Performed By: #### L [id number] #### [facility] [address] [place] [address] ASPERGILLUS GALACTOMANNAN INDEX 0.06 [facility] Comment on above: Performed By: #### L [id number] #### [facility] [address] [place] [address] BASIC METABOLIC PANELon 08-2 Anion gap [Moles/Vol] 12 mmol/L Normal 7-20 [facility] Comment on above: Performed By: #### L AB90 #### [facility] ([facility]) [address] [place] [address] Calcium [Mass/Vol] 9.1 mg/dL Normal 8.6-10.3 [facility] Comment on above: Performed By: #### L AB90 #### [facility] ([facility]) [address] [place] [address] Chloride [Moles/Vol] 112 mmol/L High 98-107 [facility] Comment on above: Performed By: #### L AB90 #### [facility] ([facility]) [address] [place] [address] CO2 [Moles/Vol] 22 mmol/L Normal 21-31 [facility] Comment on above: Performed By: #### L AB90 #### [facility] ([facility]) [address] [place] [address] Creatinine [Mass/Vol] 2.45 mg/dL High 0.60-1.20 [facility] Comment on above: Performed By: #### L AB90 #### [facility] ([facility]) [address] [place] [address] GLOMERULAR FILTRATION RATE ML/MIN/1.73 SQ M.PREDICTED 21.7 mL/min/1.73m*2 Low >60.0 [facility] Comment on above: Result Comment: The [facility]???s estimated glomerular filtration rate (eGFR) will no longer include consideration of race in its calculation. The National Kidney Foundation???s eGFR Task Force developed new recommendations for the estimation of the glomerular filtration rate in the [place] They recommend immediate implementation of the new equation refit without the race variable in all laboratories because the calculation does not include race. In addition to not including race in the calculation and reporting, it included diversity in its development, and has acceptable performance characteristics and potential consequences that do not disproportionately affect any one group of individuals. Performed By: #### L AB90 #### [facility] ([facility]) [address] [place] [address] Glucose [Mass/Vol] 143 mg/dL High 70-100 [facility] Comment on above: Performed By: #### L [id number] #### [facility] ([facility]) [address] [place] [address] Potassium [Moles/Vol] 4.1 mmol/L Normal 3.5-5.1 [facility] Comment on above: Performed By: #### L AB90 #### [facility] ([facility]) [address] [place] [address] Sodium [Moles/Vol] 142 mmol/L Normal 136-145 [facility] Comment on above: Performed By: #### L AB90 #### [facility] ([facility]) [address] [place] [address] Urea nitrogen [Mass/Vol] 36 mg/dL High 7-25 [facility] Comment on above: Performed By: #### L AB90 #### [facility] ([facility]) [address] [place] [address] UREA NITROGEN/CREATININE (MASS RATIO) IN SER/PLAS 14.7 Normal [facility] Comment on above: Performed By: #### L [id number] #### [facility] ([facility]) [address] [place] [address] CBCon 10-20-2023 Erythrocyte distribution width (RBC) [Ratio] 13.4 % Normal 11.5-15.0 [facility] Comment on above: Performed By: #### L [id number] #### [facility] ([facility]) [address] [place] [address] ERYTHROCYTE MEAN CORPUSCULAR HEMOGLOBIN CONCENTRATION (G/DL) BY AUTOMATED 31.8 g/dL Low 32.0-35.0 [facility] Comment on above: Performed By: #### L [id number] #### [facility] [address] [place] [address] Hematocrit (Bld) [Volume fraction] 44.9 % Normal 36.0-48.0 [facility] Comment on above: Performed By: #### L [id number] #### [facility] [address] [place] [address] Hemoglobin (Bld) [Mass/Vol] 14.3 g/dL Normal 12.0-15.0 [facility] Comment on above: Performed By: #### L [id number] #### [facility] [address] [place] [address] MCH (RBC) [Entitic mass] 27.4 pg Normal 27.0-33.0 [facility] Comment on above: Performed By: #### L [id number] #### [facility] ([facility]) [address] [place] [address] MCV (RBC) [Entitic vol] 86.2 fL Normal 82.0-98.0 [facility] Comment on above: Performed By: #### L [id number] #### [facility] ([facility]) [address] [place] [address] PLATELETS (10*3/UL) IN BLOOD AUTOMATED COUNT 169 10*3/uL Normal 150-400 [facility] Comment on above: Performed By: #### L [id number] #### [facility] ([facility]) [address] [place] [address] RBC (Bld) [#/Vol] 5.21 10*6/uL High 3.80-5.[address] [facility] Comment on above: Performed By: #### L [id number] #### [facility] ([facility]) [address] [place] [address] WBC (Bld) [#/Vol] 10.27 10*3/uL Normal 4.00-10.60 [facility] Comment on above: Performed By: #### L [id number] #### [facility] ([facility]) [address] [place] [address] CBC WITH AUTO DIFFERENTIALon 10-20-2023 Basophils (Bld) [#/Vol] 0.05 10*3/uL Normal 0.00-0.20 [facility] Comment on above: Performed By: #### L [id number] #### [facility] ([facility]) [address] [place] [address] Basophils/100 WBC (Bld) 0.5 % Normal 0.0-1.0 [facility] Comment on above: Performed By: #### L [id number] #### [facility] ([facility]) [address] [place] [address] Eosinophils (Bld) [#/Vol] 0.09 10*3/uL Normal 0.00-0.50 [facility] Comment on above: Performed By: #### L [id number] #### [facility] ([facility]) [address] [place] [address] Eosinophils/100 WBC (Bld) 0.9 % Normal 0.0-6.0 [facility] Comment on above: Performed By: #### L [id number] #### [facility] ([facility]) [address] [place] [address] Erythrocyte distribution width (RBC) [Ratio] 13.6 % Normal 11.5-15.0 [facility] Comment on above: Performed By: #### L [id number] #### [facility] ([facility]) [address] [place] [address] ERYTHROCYTE MEAN CORPUSCULAR HEMOGLOBIN CONCENTRATION (G/DL) BY AUTOMATED 32.6 g/dL Normal 32.0-35.0 [facility] Comment on above: Performed By: #### L [id number] #### [facility] ([facility]) [address] [place] [address] Hematocrit (Bld) [Volume fraction] 44.2 % Normal 36.0-48.0 [facility] Comment on above: Performed By: #### L [id number] #### [facility] ([facility]) [address] [place] [address] Hemoglobin (Bld) [Mass/Vol] 14.4 g/dL Normal 12.0-15.0 [facility] Comment on above: Performed By: #### L [id number] #### [facility] ([facility]) [address] [place] [address] Immature granulocytes (Bld) [#/Vol] 0.07 10*3/uL Normal 0.00-0.20 [facility] Comment on above: Performed By: #### L [id number] #### [facility] ([facility]) [address] [place] [address] Immature granulocytes/100 WBC (Bld) 0.7 % Normal 0.0-1.0 [facility] Comment on above: Performed By: #### L [id number] #### [facility] ([facility]) [address] [place] [address] Lymphocytes (Bld) [#/Vol] 1.98 10*3/uL Normal 1.20-4.00 [facility] Comment on above: Performed By: #### L [id number] #### [facility] ([facility]) [address] [place] [address] Lymphocytes/100 WBC (Bld) 19.9 % Low 20.0-45.0 [facility] Comment on above: Performed By: #### L [id number] #### [facility] ([facility]) [address] [place] [address] MCH (RBC) [Entitic mass] 27.5 pg Normal 27.0-33.0 [facility] Comment on above: Performed By: #### L [id number] #### [facility] ([facility]) [address] [place] [address] MCV (RBC) [Entitic vol] 84.4 fL Normal 82.0-98.0 [facility] Comment on above: Performed By: #### L [id number] #### [facility] ([facility]) [address] [place] [address] Monocytes (Bld) [#/Vol] 1.26 10*3/uL High 0.10-1.00 [facility] Comment on above: Performed By: #### L [id number] #### [facility] ([facility]) [address] [place] [address] Monocytes/100 WBC (Bld) 12.6 % High 5.0-12.0 [facility] Comment on above: Performed By: #### L [id number] #### [facility] ([facility]) [address] [place] [address] Neutrophils (Bld) [#/Vol] 6.52 10*3/uL Normal 1.60-7.60 [facility] Comment on above: Performed By: #### L [id number] #### [facility] ([facility]) [address] [place] [address] Neutrophils/100 WBC (Bld) 65.4 % Normal 40.0-72.0 [facility] Comment on above: Performed By: #### L [id number] #### [facility] ([facility]ER) [address] [place] [address] NRBC (PER 100 WBCS) BY AUTOMATED COUNT 0.0 % Normal 0 [facility] Comment on above: Performed By: #### L [id number] #### [facility] ([facility]) [address] [place] [address] PLATELETS (10*3/UL) IN BLOOD AUTOMATED COUNT 160 10*3/uL Normal 150-400 [facility] Comment on above: Performed By: #### L [id number] #### [facility] ([facility]ER) [address] [place] [address] RBC (Bld) [#/Vol] 5.24 10*6/uL High 3.80-5.[address] [facility] Comment on above: Performed By: #### L [id number] #### [facility] ([facility]) [address] [place] [address] WBC (Bld) [#/Vol] 9.97 10*3/uL Normal 4.00-10.[address] [facility] Comment on above: Performed By: #### L [id number] #### [facility] ([facility]) [address] [place] [address] CMV DNA, QUANTITATIVE, NAAT, PLASMAon 10-20-2023 CMV QNT BY NAAT, PLASMA INTERP Not detected Normal Not Detected [facility] Comment on above: Result Comment: INTE RPRETIVE INFORMATION: CMV by Quantitative NAAT, Plasma The quantitative range of this test is 1.54 - 7.00 log IU/mL (34.5 - 10,000,000 IU/mL). An interpretation of Not Detected does not rule out the presence of inhibitors or CMV DNA concentration below the level of detection of the assay. Care should be taken in the interpretation of any single viral load determination. International standardization has improved comparability of assay results across laboratories, but discrepancies still exist due to commutability issues with the standard. Performed By: [facility] [address] [place] [address] [employer] Referee: Young Lopez MD, PhD CLIA Number: [id number] Performed By: #### L [id number] #### [facility] ([facility]) [address] [place] [address] CMV QNT BY NAAT, PLASMA IU/ML Not detected Normal [facility] Comment on above: Performed By: #### L [id number] #### [facility] ([facility]) [address] [place] [address] CMV QNT BY NAAT, PLASMA LOG IU/ML Not detected Normal [facility] Comment on above: Performed By: #### L [id number] #### [facility] ([facility]) [address] [place] [address] CONSULTon 10-20-2023 CONSULT Nephrology Consult Note Patient : Ja Tavera; 63 y.o. Location: [facility] Attending: Kasandra Fernández MD Admit Date: 10/19/2023 Hospital Day: 1 Reason for Consult: Hx renal transplant, management of graft function, immunosuppressants History of Present Illness: Ja Tavera is a 63 y.o. female admitted for acute hypoxic respiratory failure secondary to infectious bronchiolitis. She has a H signficant for bladder cancer on monthly chemotherapy with gemcitabine and docetaxel infusion, renal transplant in 2006 on Zortress 0.75 mg, Prograf 0.5 mg, Prednisone 10 mg. Patient presented to [facility] ED at the direction of her PCP for SpO2 readings in the 80s. Patient also endorses shortness of breath of around 2 weeks duration. In the ED patient was hemodynamically stable, afebrile, in no acute distress. Patient denied n/v/d, cough. O2 improved to mid 90s on administration of 2L NC. Labs significant for leukocytosis at 11.3, Cr 2.69 (at baseline), BUN 41, eGFR 19. Chest x-ray showed new lingular consolidation and new right lower lobe juxtapleural nodular focus measuring approximately 12 mm. Follow-up chest CT significant for ground glass appearance of the lingula concerning for infectious bronchiolitis. Patient was started on IV Rocephin and azithromycin. Nephrology team consulted given patient's hx of renal transplant. This morning patient seen and examined at bedside. She is comfortable in no acute distress. Denies fever, chills, n/v/d. Denies polyuria, dysuria, hematuria. She is scheduled for V/Q scan this morning to rule out PE. Review of Systems: Review of Systems Constitutional: Negative. HENT: Negative. Eyes: Negative. Respiratory: Positive for shortness of breath (With exertion). Cardiovascular: Negative. Gastrointestinal: Negative. Endocrine: Negative. Genitourinary: Negative. Musculoskeletal: Negative. Skin: Negative. Allergic/Immunologic: Negative. Neurological: Negative. Hematological: Negative. Psychiatric/Behaviora l: Negative. Input/Output: I/O last 3 completed shifts: In: 1300 (17.5 mL/kg) [IV Piggyback:1300] Out: - (0 mL/kg) Weight: 74.3 kg Vital Signs: Temperature: Temp: 36.8 ???C (98.2 ???F) TMax: Temp (24hrs), Av.8 ???C (98.2 ???F), Min:36.8 ???C (98.2 ???F), Max:36.8 ???C (98.2 ???F) Respirations: Resp: 16 Pulse: Heart Rate: 63 BP: BP: (!) 161/102 BP Range: Systolic (24hrs), Av , Min:139 , Max:177 Diastolic (24hrs), Av, Min:80, Max:104 Wt Readings from Last 3 Encounters: 10/20/23 74.3 kg (163 lb 12.8 oz) 10/16/23 74.8 kg (165 lb) 09/18/23 74.4 kg (164 lb) Physical Examination: Physical Exam HENT: Head: Normocephalic and atraumatic. Cardiovascular: Rate and Rhythm: Normal rate and regular rhythm. Pulmonary: Effort: Pulmonary effort is normal. No respiratory distress. Breath sounds: Normal breath sounds. No wheezing, rhonchi or rales. Abdominal: General: Abdomen is flat. Palpations: Abdomen is soft. Musculoskeletal: Cervical back: Neck supple. Right lower leg: No edema. Left lower leg: No edema. Skin: General: Skin is warm and dry. Neurological: Mental Status: She is alert. Mental status is at baseline. Labs: Chemistry: Lab Results Component Value Date NA 142 10/20/2023 K 4.1 10/20/2023 CL 112 (H) 10/20/2023 CO2 22 10/20/2023 CO2 27 10/05/2021 ANIONGAP 12 10/20/2023 BUN 36 (H) 10/20/2023 CREATININE 2.45 (H) 10/20/2023 EGFR 21.7 (L) 10/20/2023 GLU 89 10/05/2021 CALCIUM 9.1 10/20/2023 MG 1.8 (L) 09/29/2023 PHOS 3.6 09/29/2023 VITD25 50.2 08/08/2023 URICAC 3.2 10/05/2021 ALBUMIN 3.7 09/29/2023 PROT 6.5 09/29/2023 AST 22 09/29/2023 ALT 17 09/29/2023 BILITOT 1.0 09/29/2023 BILIDIR 0.1 09/29/2023 ALKPHOS 53 09/29/2023 Hematology & Iron studies: Lab Results Component Value Date WBC 10.27 10/20/2023 HGB 14.3 10/20/2023 HCT 44.9 10/20/2023 MCV 86.2 10/20/2023 PLT 169 10/20/2023 Urine chemistry: Lab Results Component Value Date PROTUR >=500 (A) 07/15/2022 PROTUR 34.0 12/28/2020 CREATUR 43.0 08/08/2023 MICROALBCREA 1,141.9 (H) 08/08/2023 Urinalysis & Microscopy: Lab Results Component Value Date COLORU Straw (A) 07/15/2022 CLARITYU Clear 07/15/2022 SPECGRAVU 1.008 (L) 07/15/2022 MARLENY 7.0 07/15/2022 PROTUR >=500 (A) 07/15/2022 PROTUR 34.0 12/28/2020 LEUKOCYTESU Negative 07/15/2022 NITRITEU Negative 07/15/2022 GLUCOSEU Negative 07/15/2022 KETONESU Negative 07/15/2022 UROBILINOGEN 0.2 04/09/2022 BLOODU Negative 07/15/2022 RBCU 0-2 (A) 07/15/2022 WBCU 0-2 (A) 07/15/2022 SQUAMEPIU Occasional 07/15/2022 MUCUSU Occasional 12/05/2021 Urine Eosinophils: No components found for: UEOS Serology & Other labs: BNP: Lab Results Component Value Date BNP 170 (H) 10/19/2023 SAURABH: No results found for: SAURABH SPEP:No results found for: PROT UPEP: No components found for: LABPE C3: No results found for: (more content not included)... Normal [facility] CONSULT - Attestation signed by Angella Meléndez MD at 10/20/2023 4:40 PM GC: I saw this patient. I personally was physically present for the critical/[place] portions that determines the level of service. I was directly involved in the management and treatment plan of the patient. I reviewed fellow Dr Blood's note and agree with the documentation Angella Meléndez MD [employer] Enrico Kendall M.D. Endowed Professor in Hematology Chief of Hematology/Oncology Early Childhood Services Coordinator, Hematology and Medical Oncology Fellowship Hematology/Oncology. Internal Medicine. [facility]. [facility]. Clinic:.[phone] Office:.[phone] Inpatient Hematology Oncology Fellow availability Thursday - 830am-500pm, Thursday 830am-430pm and Thursday 830am-1200pm During these hours, Please contact Hematology Oncology Fellow through [employer] first For Hematology Oncology needs on weekends and after hours, please page the on-call fellow through the hospital flat lock operator. NEW INPATIENT HEMATOLOGY / ONCOLOGY CONSULT NOTE Patient ID: Ja Tavera, 63 y.o. female Requested by: No ref. provider found PCP: Alejandro Villagran MD : [id number] REASON FOR CONSULTATION: bladder cancer on IV chemo via [facility]. Worsening SOB/JARAMILLO CHIEF COMPLAINT: Chief Complaint Patient presents with Shortness of Breath HISTORY OF PRESENT ILLNESS: Ja Tavera is a 63 y.o. female with history of papillary urothelial cell carcinoma and living donor transplant in 2006 who presented to the hospital with progressive dyspnea on exertion. Hematology is now consulted due to history of bladder cancer on intravesicular chemo. She has been struggling with progressive dyspnea on exertion for months and was being worked up for lung disease by PCP, who urged her to go to the ER after an office visit. She denies any fever, headache, cough productive of sputum, change in bowel habits, hemoptysis, hematemesis or neck stiffness. Workup in the ED revealed elevated D-dimer and groundglass lingular opacities of lingula on CT chest without contrast. CTA was deferred due to transplant status and CKD so VQ scan was ordered and pending. Her bladder cancer was diagnosed after cystoscopic evaluation for hematuria in 2020 and she was found to have high-grade papillary urothelial carcinoma. TURBT was performed and she had invasion into lamina propria however muscle invasion was unable to be ruled out. Due to these findings, she has been on intravesicular gemcitabine/docetaxel for almost 3 years and tolerated well. She follows with urology and has had no evidence of disease progression. She is a non-smoker and does not have any history of prior malignancies or VTE. ASSESSMENT AND PLAN: Acute hypoxemic respiratory failure secondary to suspected pneumonia versus PE, suspect the former based on symptoms and imaging findings High grade papillary urothelial carcinoma with glandular differentiation with invasion into the lamina propria, diagnosed July 2020 after TURBT, muscle invasion was unable to be ruled out by pathology, therefore patient has been treated with intravesicular gemcitabine/docetaxel since 2020 and tolerated well. C9D5 today. No evidence of recurrence on subsequent cystoscopies. History of renal transplant 2006, on everolimus, tacrolimus and prednisone CKD stage IV, nonoliguric Insulin-dependent type 2 diabetes mellitus Plan: Agree with IV antibiotics, low pretest probability for PE, however will follow-up with VQ scan Would recommend follow-up CT scan in 2 to 3 months to monitor GGO on imaging. Outpatient follow-up with urology as an outpatient. Pending studies: No Outpatient follow-up appointment needed: No Hematology/Oncology consult team will now sign-off. Thank you for the consultation and allowing us to be part of this patient's care. Please do not hesitate to reach out with any questions or concerns. Stevie Blood MD Hematology/Oncology Fellow PGY-4 [facility] Epic chat preferred ASCOM: [id number] PAST HEMATOLOGY / ONCOLOGY HISTORY: Oncology History Malignant tumor of urinary bladder (CMS/HCC) 10/18/2021 Initial Diagnosis Malignant neoplasm of lateral wall of urinary bladder (CMS/HCC) 10/18/2021 - 04/09/2022 Chemotherapy gemcitabine (Gemzar) 1,000 mg in sterile water (PF) (SWFI) 60 mL intravesicular syringe, 1,000 mg, intravesical, Once, 12 of 12 cycles Administration: 1,000 mg (11/07/2021), 1,000 mg (12/05/2021), 1,000 mg (02/12/2022), 1,000 mg (03/12/2022), 1,000 mg (04/09/2022) DOCEtaxeL (Taxotere) 37.5 mg in sodium chloride 0.9 % 53.75 mL intravesicular syringe, 37.5 mg, intravesical, Once, 1 (more content not included)... Normal [facility] POCT GLUCOSE METER UNSOLICIT ED RESULTSon 10-20-2023 Glucose [Mass/Vol] 176 mg/dL High 70-105 [facility] Comment on above: Order Comment: Waive d Testing in the ED is performed under the ED CLIA certificate #[id number]. Result Comment: palak cey2 Performed By: #### L [id number] #### [facility] ([facility]) [address] [place] [address] Glucose [Mass/Vol] 198 mg/dL High 70-105 [facility] Comment on above: Order Comment: Waive d Testing in the ED is performed under the ED CLIA certificate #[id number]. Result Comment: casa di5 Performed By: #### L [id number] #### [facility] ([facility]ER) [address] [place] [address] Glucose [Mass/Vol] 175 mg/dL High 70-105 [facility] Comment on above: Order Comment: Waive d Testing in the ED is performed under the ED CLIA certificate #[id number]. Result Comment: lfau ser Performed By: #### L [id number] #### [facility] ([facility]) [address] [place] [address] Glucose [Mass/Vol] 143 mg/dL High 70-105 [facility] Comment on above: Order Comment: Waive d Testing in the ED is performed under the ED CLIA certificate #[id number]. Result Comment: dorothea neking Performed By: #### L [id number] #### [facility] ([facility]) [address] [place] [address] Glucose [Mass/Vol] 87 mg/dL Normal 70-105 [facility] Comment on above: Order Comment: Waive d Testing in the ED is performed under the ED CLIA certificate #[id number]. Result Comment: bgar row Performed By: #### L [id number] #### [facility] ([facility]) [address] [place] [address] ANTI-XA (HEPARIN LEVEL)on HEPARIN UNFRACTIONATED (U/ML) IN PPP BY CHROMOGENIC METHOD <0.10 Invalid Interpretation Code 0.3-0.7 [facility] Comment on above: Order Comment: Check anti-Xa level every 6 hours while on heparin infusion, or per protocol. Result Comment: [place] roxaban and Apixaban will interfere with the anti Xa assay used to monitor UFH and LMWH. Performed By: #### L [id number] #### [facility] ([facility]) [address] [place] [address] APTTon 10-19-2023 ACTIVATED PARTIAL THROMBOPLASTIN TIME IN PPP BY COAGULATION ASSAY 23.0 Seconds Low 25.0-35.0 [facility] Comment on above: Result Comment: Clin ical significance of the APTT is questionable in the presence of heparin. Performed By: #### L [id number] #### [facility] ([facility]) [address] [place] [address] B-TYPE NATRIURETIC PEPTIDEon 10-19-2023 Natriuretic peptide B (Bld) [Mass/Vol] 170 pg/mL High 0-100 [facility] Comment on above: Performed By: #### L [id number] #### [facility] [address] [place] [address] BASIC METABOLIC PANELon 08-2 Anion gap [Moles/Vol] 17 mmol/L Normal 7-20 [facility] Comment on above: Performed By: #### L [id number] #### [facility] ([facility]) [address] [place] [address] Calcium [Mass/Vol] 10.2 mg/dL Normal 8.6-10.3 [facility] Comment on above: Performed By: #### L [id number] #### [facility] ([facility]) [address] [place] [address] Chloride [Moles/Vol] 107 mmol/L Normal 98-107 [facility] Comment on above: Performed By: #### L [id number] #### [facility] ([facility]) [address] [place] [address] CO2 [Moles/Vol] 19 mmol/L Low 21-31 [facility] Comment on above: Performed By: #### L [id number] #### [facility] ([facility]) [address] [place] [address] Creatinine [Mass/Vol] 2.69 mg/dL High 0.60-1.20 [facility] Comment on above: Performed By: #### L [id number] #### [facility] ([facility]) [address] [place] [address] GLOMERULAR FILTRATION RATE ML/MIN/1.73 SQ M.PREDICTED 19.4 mL/min/1.73m*2 Low >60.0 [facility] Comment on above: Result Comment: The [facility]???s estimated glomerular filtration rate (eGFR) will no longer include consideration of race in its calculation. The National Kidney Foundation???s eGFR Task Force developed new recommendations for the estimation of the glomerular filtration rate in the [place] They recommend immediate implementation of the new equation refit without the race variable in all laboratories because the calculation does not include race. In addition to not including race in the calculation and reporting, it included diversity in its development, and has acceptable performance characteristics and potential consequences that do not disproportionately affect any one group of individuals. Performed By: #### L [id number] #### [facility] ([facility]) [address] [place] [address] Glucose [Mass/Vol] 200 mg/dL High 70-100 [facility] Comment on above: Performed By: #### L AB90 #### [facility] ([facility]) [address] [facility] [place] [address] Potassium [Moles/Vol] 4.6 mmol/L Normal 3.5-5.1 [facility] Comment on above: Performed By: #### L [id number] #### [facility] ([facility]) [address] [place] [address] Sodium [Moles/Vol] 138 mmol/L Normal 136-145 [facility] Comment on above: Performed By: #### L [id number] #### [facility] ([facility]) [address] [place] [address] Urea nitrogen [Mass/Vol] 41 mg/dL High 7-25 [facility] Comment on above: Performed By: #### L [id number] #### [facility] ([facility]) [address] [place] [address] UREA NITROGEN/CREATININE (MASS RATIO) IN SER/PLAS 15.2 Normal [facility] Comment on above: Performed By: #### L [id number] #### [facility] ([facility]) [address] [facility] [place] [address] CBC WITH AUTO DIFFERENTIALon 10-19-2023 Basophils (Bld) [#/Vol] 0.04 10*3/uL Normal 0.00-0.20 [facility] Comment on above: Performed By: #### L [id number] #### [facility] ([facility]) [address] [place] [address] Basophils/100 WBC (Bld) 0.3 % Normal 0.0-1.0 [facility] Comment on above: Performed By: #### L [id number] #### [facility] ([facility]) [address] [place] [address] Eosinophils (Bld) [#/Vol] 0.02 10*3/uL Normal 0.00-0.50 [facility] Comment on above: Performed By: #### L [id number] #### [facility] ([facility]) [address] [place] [address] Eosinophils/100 WBC (Bld) 0.2 % Normal 0.0-6.0 [facility] Comment on above: Performed By: #### L [id number] #### [facility] ([facility]) [address] [place] [address] Erythrocyte distribution width (RBC) [Ratio] 13.5 % Normal 11.5-15.0 [facility] Comment on above: Performed By: #### L [id number] #### [facility] ([facility]) [address] [place] [address] ERYTHROCYTE MEAN CORPUSCULAR HEMOGLOBIN CONCENTRATION (G/DL) BY AUTOMATED 32.9 g/dL Normal 32.0-35.0 [facility] Comment on above: Performed By: #### L [id number] #### [facility] ([facility]) [address] [place] [address] Hematocrit (Bld) [Volume fraction] 49.8 % High 36.0-48.0 [facility] Comment on above: Performed By: #### L [id number] #### [facility] ([facility]) [address] [place] [address] Hemoglobin (Bld) [Mass/Vol] 16.4 g/dL High 12.0-15.0 [facility] Comment on above: Performed By: #### L [id number] #### [facility] ([facility]) [address] [place] [address] Immature granulocytes (Bld) [#/Vol] 0.08 10*3/uL Normal 0.00-0.20 [facility] Comment on above: Performed By: #### L [id number] #### [facility] ([facility]) [address] [place] [address] Immature granulocytes/100 WBC (Bld) 0.7 % Normal 0.0-1.0 [facility] Comment on above: Performed By: #### L [id number] #### [facility] ([facility]) [address] [place] [address] Lymphocytes (Bld) [#/Vol] 1.29 10*3/uL Normal 1.20-4.00 [facility] Comment on above: Performed By: #### L [id number] #### [facility] ([facility]) [address] [place] [address] Lymphocytes/100 WBC (Bld) 11.1 % Low 20.0-45.0 [facility] Comment on above: Performed By: #### L [id number] #### [facility] ([facility]) [address] [place] [address] MCH (RBC) [Entitic mass] 27.7 pg Normal 27.0-33.0 [facility] Comment on above: Performed By: #### L [id number] #### [facility] ([facility]) [address] [place] [address] MCV (RBC) [Entitic vol] 84.1 fL Normal 82.0-98.0 [facility] Comment on above: Performed By: #### L [id number] #### [facility] ([facility]) [address] [place] [address] Monocytes (Bld) [#/Vol] 0.84 10*3/uL Normal 0.10-1.00 [facility] Comment on above: Performed By: #### L [id number] #### [facility] ([facility]) [address] [place] [address] Monocytes/100 WBC (Bld) 7.2 % Normal 5.0-12.0 [facility] Comment on above: Performed By: #### L [id number] #### [facility] ([facility]) [address] [place] [address] Neutrophils (Bld) [#/Vol] 9.36 10*3/uL High 1.60-7.60 [facility] Comment on above: Performed By: #### L [id number] #### [facility] [address] [place] [address] Neutrophils/100 WBC (Bld) 80.5 % High 40.0-72.0 [facility] Comment on above: Performed By: #### L [id number] #### [facility] ([facility]) [address] [place] [address] NRBC (PER 100 WBCS) BY AUTOMATED COUNT 0.0 % Normal 0 [facility] Comment on above: Performed By: #### L [id number] #### [facility] [address] [place] [address] PLATELETS (10*3/UL) IN BLOOD AUTOMATED COUNT 174 10*3/uL Normal 150-400 [facility] Comment on above: Performed By: #### L [id number] #### [facility] [address] [place] [address] RBC (Bld) [#/Vol] 5.92 10*6/uL High 3.80-5.[address] [facility] Comment on above: Performed By: #### L [id number] #### [facility] ([facility] [address] [place] [address] WBC (Bld) [#/Vol] 11.63 10*3/uL High 4.00-10.60 [facility] Comment on above: Performed By: #### L [id number] #### [facility] (BE[facility]) [address] [place] [address] CT CHEST WO IV CONTRASTon CT CHEST WO IV CONTRAST CT CHEST WO IV CONTRAST HISTORY: Shortness of breath, cough COMPARISON: MR abdomen 06/25/2020 TECHNIQUE: Contiguous axial images are obtained of the Chest without IV contrast. Coronal and sagittal reconstructions were performed and reviewed. Automatic exposure control was utilized. All CT scans at this facility use dose modulation, iterative reconstruction, and/or weight based dosing when appropriate to reduce radiation dose to as low as reasonably achievable. FINDINGS: Lower neck: Thyroidectomy. Lymph nodes: No supraclavicular, axillary, or mediastinal adenopathy. MUSCULOSKELETAL: Vertebral body heights and alignment maintained. Upper abdomen: Similar focal abnormality along the gallbladder fundus consistent with adenomyomatosis. Marked left renal atrophy. Heart and aorta: Heart is not enlarged. Trace pericardial effusion. No significant coronary artery calcifications. Thoracic aorta is nonaneurysmal. LUNGS: Central airways patent. No pneumothorax or pleural effusion. Benign calcified left upper lobe granuloma. Multifocal areas of scarring/atelectasis throughout the right lung. Subtle groundglass opacities in the lingula, possible tree-in-bud. Pulmonary artery: Not enlarged IMPRESSION: *Subtle groundglass changes within the lingula, likely infectious bronchiolitis. Based on the peripheral distribution Covid pneumonia not excluded. Approved by:Oh Pereira10/19/2023 8:29 PM. I, Edward Hutton,have reviewed the image(s) and agree with the findings in this report. Electronically signed: Edward Hutton. Normal [facility] D-DIMER, QUANTITATIVEon 09-24 FIBRIN D-DIMER (UG/L FEU) IN PLATELET POOR PLASMA 11.36 mcg/mL FEU High 0.27-0.49 [facility] Comment on above: Order Comment: D-Dim er values of less than 0.50 ug/ml (FEU) are considered to be a negative predictor of thrombosis. However, the D-Dimer result should be used in conjunction with pretest probability and should not be used alone to diagnose a thrombotic event. Performed By: #### L [id number] #### [facility] ([facility]) [address] [place] [address] EDNURSon 10-19-2023 EDNURS Mode of arrival (squad #, walk in, police, etc): Walk in Chief complaint(s): SOB Arrival Note (brief scenario, treatment [employer]ING [employer]PERATOR, etc): The patient has had trouble breathing that has been going on for awhile. She had a lung test done today, her doctors wanted her admitted so she could have some testing. She stated her doctors wants her to have a CT scan done. Normal [facility] EDPROVon 10-19-2023 EDPROV [facility] [address] [facility] [id number] EMERGENCY DEPARTMENT ENCOUNTER 10/19/2023 CHIEF COMPLAINT Chief Complaint Patient presents with Shortness of Breath HISTORY OF PRESENT ILLNESS 63-year-old female with a history of bladder cancer currently on intravesicular chemotherapy once monthly (most recent dose 3 days ago), hypertension, history of renal transplant (2006) on antirejection medication presents to the emergency department at the direction of her family doctor for evaluation of shortness of breath. Patient reports she has had shortness of breath that worsens with exertion over the last year, reports symptoms worsening over the last 6 months. Patient reports she had a PCP appointment today who recommended she come to the ER to rule out blood clot, pneumonia, and asthma. Patient reports her family doctor wanted her admitted for these workups. Patient reports she was hypoxic on room air at her family doctor's office. Patient denies chest pain, fevers, chills, abd pain, nausea, vomiting, diarrhea. Patient endorses cough. Patient denies history of hemorrhagic stroke, GI bleed, blood in stools, bleeding gums, etc. Patient denies anticoagulation. Patient denies history of DVT/PE. REVIEW OF SYSTEMS Review of Systems Constitutional: Negative for chills and fever. HENT: Positive for congestion. Respiratory: Positive for cough and shortness of breath. Cardiovascular: Negative for chest pain. Gastrointestinal: Negative for abdominal pain, diarrhea and vomiting. Musculoskeletal: Negative for back pain and neck pain. Skin: Negative for rash. Neurological: Negative for headaches. Psychiatric/Behaviora l: Negative for confusion and hallucinations. All other systems reviewed and are negative. PAST MEDICAL HISTORY has a past medical history of Bladder cancer ([facility]), Diabetes mellitus ([facility]/HCC), Hypercholesteremia, and Hypertension. SURGICAL HISTORY has a past surgical history that includes Colonoscopy; Nephrectomy; Thyroid surgery; and Tonsillectomy. CURRENT MEDICATIONS Current Discharge Medication List CONTINUE these medications which have NOT CHANGED Details alendronate (Fosamax) 35 mg tablet Take 1 tablet by mouth every 7 (seven) days. On Sundays atorvastatin (Lipitor) 40 mg tablet Take 1 tablet by mouth at bedtime. BD Ultra-Fine Short Pen Needle 31 gauge x 5/16 needle in the morning and at bedtime. as directed bimatoprost (Lumigan) 0.01 % ophthalmic solution Administer 1 drop into both eyes at bedtime. calcium citrate-vitamin D3 (Citracal+D) 315 mg-5 mcg (200 unit) tablet Take 1 tablet by mouth in the morning. cycloSPORINE (Restasis) 0.05 % ophthalmic emulsion Administer 1 drop into both eyes every 12 (twelve) hours. everolimus (Zortress) 0.75 mg tablet TAKE 1 TABLET BY MOUTH TWICE DAILY Qty: 60 tablet, Refills: 11 Associated Diagnoses: Aftercare following organ transplant famotidine (Pepcid) 20 mg tablet Take 1 tablet by mouth in the morning. febuxostat (Uloric) 40 mg tablet Take 1 tablet by mouth in the morning. insulin aspart (NovoLOG U-100 Insulin aspart) 100 unit/mL injection vial Inject 10 Units under the skin before evening meal. levothyroxine (Synthroid, Levoxyl) 150 mcg tablet Take 150 mcg by mouth in the morning. 150 mcg linaGLIPtin (Tradjenta) 5 mg tablet Take 5 mg by mouth in the morning. magnesium oxide (Mag-Ox) 400 mg (241.3 mg magnesium) tablet Take 1 tablet by mouth in the morning. metoprolol tartrate (Lopressor) 25 mg tablet Take 1 tablet by mouth two times daily. multivitamin (Theragran-M) 9 mg iron-400 mcg tablet Take 1 tablet by mouth in the morning. omega-3 fatty acids-fish oil 300-1,000 mg capsule Take by mouth two times daily. OneTouch Verio test strips strip in the morning, afternoon, and at bedtime. for testing oxybutynin (Ditropan) 5 mg tablet Take 1 tablet (5 mg) by mouth three times daily. Qty: 270 tablet, Refills: 3 Associated Diagnoses: Malignant neoplasm of trigone of urinary bladder (CMS/HCC) peg 400-propylene glycol (Systane, propylene glycoL,) 0.4-0.3 % drops Administer 1 drop into both eyes if needed (for dry eyes). predniSONE (Deltasone) 10 mg tablet Take 1 tablet by mouth in the morning. tacrolimus (Prograf) 0.5 mg capsule Take 1 capsule (0.5 mg) by mouth in the morning and at bedtime. Z94.0, Total daily dosage 1 mg Qty: 60 capsule, Refills: 11 Comments: Transplant Date: 06/18/2006 (Kidney) Discharge Date: 06/23/2006 ICD10: Kidney replaced by transplant - Z94.0 Location of Transplant: [facility] ([place], [place]) Associated Diagnoses: Aftercare following organ transplant Girma Max U-300 SoloStar 300 unit/mL (3 mL) injection Inject 56 Units under the skin in the morning. ALLERGIES is allergic to aspirin, ibuprofen, and amlodipine. FAMILY HISTORY She indicated that the status of her father is unknown. family hist (more content not included)... Normal [facility] EDPROV This report has been cancelled. Normal [facility] LACTIC ACID WITH 4 HOUR REFL EXon 10-19-2023 LACTATE (MMOL/L) IN SER/PLAS 1.5 mmol/L Normal 0.5-2.2 [facility] Comment on above: Performed By: #### L [id number] #### [facility] ([facility]) [address] [place] [address] NM LUNG VENTILATION PERFUSIO Non 10-19-2023 NM LUNG VENTILATION PERFUSION NM LUNG VENTILATION PERFUSION 10/20/2023 11:29 AM CLINICAL INDICATIONS: Elevated d-dimer and shortness of breath. PROTOCOL: After inhalation of aerosolized Tc-99m DTPA 39.5 mCi for the ventilation study, eight static images of the lung field were acquired in the anterior, posterior, left anterior oblique, right posterior oblique, right anterior oblique, left posterior oblique, left lateral, and right lateral projections. Immediately following the ventilation exam, the patient was injected intravenously with 5.3 mCi of Tc-99m MAA for the perfusion study. Static images of the lung field were acquired in micheal same orientation and obliquity of the initial ventilation images. Ventilation and perfusion images were reviewed with the patient's most recent chest x-ray on RADIOPHARMACEUTICAL DOSE: As above. COMPARISON: 10/19/2023 chest x-ray FINDINGS: No significant perfusion ventilation mismatch to suggest pulmonary emboli. The ventilation study does demonstrate equal ventilation of multiple segments which is possibly technical if patient has features of air trapping. IMPRESSION: Low probability examination for pulmonary embolism.. Electronically signed: Markus Galeana MD. Normal [facility] PLATELET COUNTon 10-19-2023 PLATELETS (10*3/UL) IN BLOOD AUTOMATED COUNT 168 10*3/uL Normal 150-400 [facility] Comment on above: Performed By: #### L [id number] #### [facility] ([facility]) [address] [place] [address] POCT GLUCOSE METER UNSOLICIT ED RESULTSon 10-19-2023 Glucose [Mass/Vol] 77 mg/dL Normal 70-105 [facility] Comment on above: Order Comment: Waive d Testing in the ED is performed under the ED CLIA certificate #[id number]. Result Comment: deepti spaulding Performed By: #### L [id number] #### [facility] ([facility]) [address] [place] [address] PROTIME-INRon 10-19-2023 INR IN PPP BY COAGULATION ASSAY 0.94 Normal 0.90-1.10 [facility] Comment on above: Result Comment: ACCC P RECOMMENDED INR FOR WARFARIN THERAPY CONDITION INR PROPHYLAXIS OF VENOUS THROMBOSIS 2-3 (HIGH-RISK SURGERY) TREATMENT OF VENOUS THROMBOSIS 2-3 TREATMENT OF PULMONARY EMBOLISM 2-3 PREVENTION OF SYSTEMIC EMBOLISM: 2-3 ACUTE MYOCARDIAL INFARCTION TISSUE HEART VALVES VALVULAR HEART DISEASE ATRIAL FIBRILLATION RECURRENT SYSTEMIC EMBOLISM MECHANICAL HEART VALVE 2.5-3.5 FROM: ORAL ANTICOAGULANTS. MECHANISM OF ACTION, CLINICAL EFFECTIVENESS, AND OPTIMAL THERAPEUTIC RANGE. CHEST 1995;108:231S-246S. Performed By: #### L [id number] #### [facility] (BET[facility]criptic) [address] [place] [address] PROTHROMBIN TIME (PT) IN PPP BY COAGULATION ASSAY 12.6 Seconds Normal 12.3-14.8 [facility] Comment on above: Performed By: #### L [id number] #### [facility] ([facility]) [address] [facility] [address] TROPONIN Ion 10-19-2023 Troponin I.cardiac [Mass/Vol] 0.03 ng/mL Normal 0.00-0.04 [facility] Comment on above: Performed By: #### L [id number] #### [facility] ([facility]) [address] [place] [address] BILIRUBIN, DIRECTon 09-29-19 Magnesium [Mass/Vol] 0.1 mg/dL Normal 0-0.2 [facility] Comment on above: Performed By: #### L [id number] #### [facility] ([facility]) [address] [facility] [place] [address] CBC WITH AUTO DIFFERENTIALon 09-29-2023 Basophils (Bld) [#/Vol] 0.04 10*3/uL Normal 0.00-0.20 [facility] Comment on above: Performed By: #### L [id number] #### [facility] ([facility]) [address] [facility] [address] Basophils/100 WBC (Bld) 0.5 % Normal 0.0-1.0 [facility] Comment on above: Performed By: #### L [id number] #### [facility] ([facility]) [address] [facility] [place] [address] Eosinophils (Bld) [#/Vol] 0.15 10*3/uL Normal 0.00-0.50 [facility] Comment on above: Performed By: #### L [id number] #### [facility] ([facility]) [address] [facility] [place] [address] Eosinophils/100 WBC (Bld) 1.7 % Normal 0.0-6.0 [facility] Comment on above: Performed By: #### L [id number] #### [facility] ([facility]) [address] [facility] [address] Erythrocyte distribution width (RBC) [Ratio] 13.5 % Normal 11.5-15.0 [facility] Comment on above: Performed By: #### L [id number] #### [facility] ([facility]) [address] [place] [address] ERYTHROCYTE MEAN CORPUSCULAR HEMOGLOBIN CONCENTRATION (G/DL) BY AUTOMATED 32.6 g/dL Normal 32.0-35.0 [facility] Comment on above: Performed By: #### L [id number] #### [facility] ([facility]) [address] [place] [address] Hematocrit (Bld) [Volume fraction] 43.9 % Normal 36.0-48.0 [facility] Comment on above: Performed By: #### L [id number] #### [facility] ([facility]) [address] [place] [address] Hemoglobin (Bld) [Mass/Vol] 14.3 g/dL Normal 12.0-15.0 [facility] Comment on above: Performed By: #### L [id number] #### [facility] [address] [place] [address] Immature granulocytes (Bld) [#/Vol] 0.06 10*3/uL Normal 0.00-0.20 [facility] Comment on above: Performed By: #### L [id number] #### [facility] ([facility]) [address] [place] [address] Immature granulocytes/100 WBC (Bld) 0.7 % Normal 0.0-1.0 [facility] Comment on above: Performed By: #### L [id number] #### [facility] ([facility]) [address] [place] [address] Lymphocytes (Bld) [#/Vol] 2.19 10*3/uL Normal 1.20-4.00 [facility] Comment on above: Performed By: #### L [id number] #### [facility] ([facility]) [address] [place] [address] Lymphocytes/100 WBC (Bld) 25.3 % Normal 20.0-45.0 [facility] Comment on above: Performed By: #### L [id number] #### [facility] ([facility]) [address] [place] [address] MCH (RBC) [Entitic mass] 27.4 pg Normal 27.0-33.0 [facility] Comment on above: Performed By: #### L [id number] #### [facility] ([facility]) [address] [place] [address] MCV (RBC) [Entitic vol] 84.1 fL Normal 82.0-98.0 [facility] Comment on above: Performed By: #### L [id number] #### [facility] ([facility] [address] [place] [address] Monocytes (Bld) [#/Vol] 1.37 10*3/uL High 0.10-1.00 [facility] Comment on above: Performed By: #### L [id number] #### [facility] ([facility]) [address] [place] [address] Monocytes/100 WBC (Bld) 15.8 % High 5.0-12.0 [facility] Comment on above: Performed By: #### L [id number] #### [facility] ([facility]) [address] [place] [address] Neutrophils (Bld) [#/Vol] 4.84 10*3/uL Normal 1.60-7.60 [facility] Comment on above: Performed By: #### L [id number] #### [facility] ([facility]) [address] [place] [address] Neutrophils/100 WBC (Bld) 56.0 % Normal 40.0-72.0 [facility] Comment on above: Performed By: #### L [id number] #### [facility] ([facility]) [address] [place] [address] NRBC (PER 100 WBCS) BY AUTOMATED COUNT 0.0 % Normal 0 [facility] Comment on above: Performed By: #### L [id number] #### [facility] ([facility]) [address] [place] [address] PLATELETS (10*3/UL) IN BLOOD AUTOMATED COUNT 176 10*3/uL Normal 150-400 [facility] Comment on above: Performed By: #### L [id number] #### [facility] ([facility]) [address] [place] [address] RBC (Bld) [#/Vol] 5.22 10*6/uL High 3.80-5.[address] [facility] Comment on above: Performed By: #### L [id number] #### [facility] ([facility]) [address] [place] [address] WBC (Bld) [#/Vol] 8.65 10*3/uL Normal 4.00-10.[address] [facility] Comment on above: Performed By: #### L [id number] #### [facility] ([facility]) [address] [place] [address] COMPREHENSIVE METABOLIC PANE Macario 09-29-2023 Albumin [Mass/Vol] 3.7 g/dL Normal 3.5-5.7 [facility] Comment on above: Performed By: #### L [id number] #### [facility] ([facility]) [address] [place] [address] ALP [Catalytic activity/Vol] 53 U/L Normal 34-104 [facility] Comment on above: Performed By: #### L [id number] #### [facility] ([facility]) [address] [place] [address] ALT [Catalytic activity/Vol] 17 U/L Normal 7-52 [facility] Comment on above: Performed By: #### L [id number] #### [facility] ([facility]) [address] [place] [address] Anion gap [Moles/Vol] 13 mmol/L Normal 7-20 [facility] Comment on above: Performed By: #### L [id number] #### [facility] ([facility]) [address] [place] [address] AST [Catalytic activity/Vol] 22 U/L Normal 13-39 [facility] Comment on above: Performed By: #### L [id number] #### [facility] ([facility]) [address] [place] [address] Bilirubin [Mass/Vol] 1.0 mg/dL Normal 0.3-1.0 [facility] Comment on above: Performed By: #### L [id number] #### [facility] ([facility]) [address] [place] [address] Calcium [Mass/Vol] 9.9 mg/dL Normal 8.6-10.3 [facility] Comment on above: Performed By: #### L [id number] #### [facility] ([facility]) [address] [place] [address] Chloride [Moles/Vol] 105 mmol/L Normal 98-107 [facility] Comment on above: Performed By: #### L [id number] #### [facility] ([facility]) [address] [place] [address] CO2 [Moles/Vol] 24 mmol/L Normal 21-31 [facility] Comment on above: Performed By: #### L [id number] #### [facility] ([facility]) [address] [place] [address] Creatinine [Mass/Vol] 2.64 mg/dL High 0.60-1.20 [facility] Comment on above: Performed By: #### L [id number] #### [facility] ([facility]) [address] [place] [address] GLOMERULAR FILTRATION RATE ML/MIN/1.73 SQ M.PREDICTED 19.9 mL/min/1.73m*2 Low >60.0 [facility] Comment on above: Result Comment: The [facility]???s estimated glomerular filtration rate (eGFR) will no longer include consideration of race in its calculation. The National Kidney Foundation???s eGFR Task Force developed new recommendations for the estimation of the glomerular filtration rate in the [place] They recommend immediate implementation of the new equation refit without the race variable in all laboratories because the calculation does not include race. In addition to not including race in the calculation and reporting, it included diversity in its development, and has acceptable performance characteristics and potential consequences that do not disproportionately affect any one group of individuals. Performed By: #### L [id number] #### [facility] ([facility]) [address] [place] [address] Glucose [Mass/Vol] 92 mg/dL Normal 70-100 [facility] Comment on above: Performed By: #### L [id number] #### [facility] ([facility]) [address] [place] [address] Potassium [Moles/Vol] 3.8 mmol/L Normal 3.5-5.1 [facility] Comment on above: Performed By: #### L [id number] #### [facility] ([facility]) [address] [place] [address] Protein [Mass/Vol] 6.5 g/dL Normal 6.0-8.3 [facility] Comment on above: Performed By: #### L [id number] #### [facility] ([facility]) [address] [place] [address] Sodium [Moles/Vol] 138 mmol/L Normal 136-145 [facility] Comment on above: Performed By: #### L [id number] #### [facility] ([facility]) [address] [place] [address] Urea nitrogen [Mass/Vol] 42 mg/dL High 7-25 [facility] Comment on above: Performed By: #### L [id number] #### [facility] ([facility]) [address] [place] [address] UREA NITROGEN/CREATININE (MASS RATIO) IN SER/PLAS 15.9 Normal [facility] Comment on above: Performed By: #### L [id number] #### [facility] ([facility]) [address] [place] [address] Labon 09-29-2023 Lab [id number] Ja Tavera 1960 Date Provider Department [place] 09/29/2023 2245-[facility] LAB RESOURCE [facility] Family History Problem Relation Age of Onset Lung cancer Father Liver cancer Father Family Status - Relation Status Age at Father Normal [facility] MAGNESIUMon 09-29-2023 Magnesium [Mass/Vol] 1.8 mg/dL Low 1.9-2.7 [facility] Comment on above: Performed By: #### L [id number] #### [facility] ([facility]) [address] [place] [address] PHOSPHORUSon 09-29-2023 Magnesium [Mass/Vol] 3.6 mg/dL Normal 2.5-5.0 [facility] Comment on above: Performed By: #### L [id number] #### [facility] ([facility]) [address] [place] [address] TACROLIMUS LEVELon Tacrolimus (Bld) [Mass/Vol] 4.8 ng/mL Low 5.0-20.0 [facility] Comment on above: Result Comment: The [employer] Tacrolimus assay is a delayed one-step immunoassay for the quantitative determination of tacrolimus in human whole blood using the chemiluminescent microparticle immunoassay (CMIA) technology with flexible assay protocols, referred to as Chemiflex. Performed By: #### L [id number] #### [facility] ([facility]AK[facility]) [address] [place] [address] URIC ACIDon 09-29-2023 Magnesium [Mass/Vol] 3.3 mg/dL Normal 2.3-6.6 [facility] Comment on above: Performed By: #### L [id number] #### [facility] ([facility]) [address] [place] [address] Infusionon 09-18-2023 Infusion [id number] Ja Tavera 1960 F Date Provider Department [place] 09/18/2023 2284-[facility] CHAIR 13 [facility] INF [facility] Family History Problem Relation Age of Onset Lung cancer Father Liver cancer Father Family Status - Relation Status Age at Father Normal [facility] Orders Onlyon 09-08-2023 Orders Only [id number] Villafana 1960 F Date Provider Department Center 09/08/2023 ESTEBAN STRATTON [facility] INF [facility] Family History Problem Relation Age of Onset Lung cancer Father Liver cancer Father Family Status - Relation Status Age at Father Normal [facility] Orders Onlyon 09-01-2023 Orders Only [id number] Ja Tavera 1960 F Date Provider Department Center 09/01/2023 ESTEBAN STRATTON [facility] Family History Problem Relation Age of Onset Lung cancer Father Liver cancer Father Family Status - Relation Status Age at Father Normal [facility] CYCLIC CITRUL PEPTIDE ANTIBO DY, IGG AND IGAon 08-08-2023 CYCLIC CITRULLINATED PEPTIDE AB, IGG/A 10 Units Normal 0-19 [facility] Comment on above: Result Comment: INTE RPRETIVE INFORMATION: Cyclic Citrullinated Peptide Ab, IgG/A 19 Units or less ................... Negative 20-39 Units ........................ Weak Positive 40-59 Units ........................ Moderate Positive 60 Units or greater ................ Strong Positive A positive result for cyclic citrullinated peptide (CCP) antibodies in conjunction with consistent clinical features may be suggestive of rheumatoid arthritis (RA). Anti-CCP, IgG/IgA antibodies are present in about 66-74 percent of RA patients and have specificities of 96-99 percent. Detection of IgA antibodies in addition to the usual IgG antibodies enhances the sensitivity due to some RA patients having IgA antibodies to CCP in the absence of IgG. These autoantibodies may be present in the preclinical phase of disease, are associated with future RA development, and may predict radiographic joint destruction. Patients with weak positive results should be monitored and testing repeated. Performed By: [facility] [address] [place] [address] [employer] Referee: Young Lopez MD, PhD CLIA Number: [id number] Performed By: #### L [id number] #### [facility] (BEAKER) [address] [place] [address] LIPID PANELon 08-08-2023 CHOL/HDL 4.9 mg/dL Normal [facility] Comment on above: Performed By: #### L [id number] #### [facility] (BEAKER) [address] [place] [address] Cholesterol [Mass/Vol] 193 mg/dL Normal 120-200 [facility] Comment on above: Performed By: #### L [id number] #### [facility] [address] [place] [address] Magnesium [Mass/Vol] 188 mg/dL High 40-149 [facility] Comment on above: Result Comment: TRIG LYCERIDE REFERENCE RANGE: 20 YEARS AND OLDER CARDIOVASCULAR RISK LESS THAN 150 mg/dL LOW RISK 150 TO 199 mg/dL BORDERLINE RISK 200 mg/dL AND GREATER HIGH RISK Performed By: #### L [id number] #### [facility] ([facility]) [address] [place] [address] Magnesium [Mass/Vol] 116 mg/dL Normal 0-160 [facility] Comment on above: Performed By: #### L [id number] #### [facility] ([facility]) [address] [place] [address] Magnesium [Mass/Vol] 39 mg/dL Normal 23-92 [facility] Comment on above: Performed By: #### L [id number] #### [facility] ([facility]) [address] [place] [address] NON HDL CHOL. (LDL+VLDL) 154 Normal [facility] Comment on above: Performed By: #### L [id number] #### [facility] (BEAKER) [address] [place] [address] TOTAL VLDL-C 38 mg/dL Normal 0-40 [facility] Comment on above: Performed By: #### L [id number] #### [facility] (BEAKER) [address] [place] [address] Labon 08-08-2023 Lab [id number] Ja Tavera 1960 F Date Provider Department Center 08/08/2023 2245-[facility]PD LAB RESOURCE [facility] C Family History Problem Relation Age of Onset Lung cancer Father Liver cancer Father Family Status - Relation Status Age at Father Normal [facility] MICROALBUMIN, URINE, RANDOMo n 08-08-2023 Albumin DL <= 20 mg/L (U) [Mass/Vol] 49.1 mg/dL Normal [facility] Comment on above: Performed By: #### L [id number] #### [facility] (BEAKER) [address] [place] [address] Creatinine (U) [Mass/Vol] 43.0 mg/dL Normal 26-299 [facility] Comment on above: Performed By: #### L [id number] #### [facility] (BEAKER) [address] [place] [address] MICROALBUMIN/CREATINI NE (MG/G) IN URINE 1141.9 mg/g Creat High 0.0-30.0 [facility] Comment on above: Performed By: #### L [id number] #### [facility] (BEAKER) [address] [place] [address] RENAL FUNCTION PANELon 08-07 Albumin [Mass/Vol] 3.8 g/dL Normal 3.5-5.7 [facility] Comment on above: Performed By: #### L [id number] #### [facility] (Health Data Minder) [address] [place] [address] Anion gap [Moles/Vol] 15 mmol/L Normal 7-20 [facility] Comment on above: Performed By: #### L [id number] #### [facility] (BETranscriptic) [address] [place] [address] CALCIUM (MG/DL) CORRECTED FOR ALBUMIN IN SER/PLAS 10.56 mg/dL Normal [facility] Comment on above: Performed By: #### L [id number] #### [facility] ([employer]) [address] [place] [address] Calcium [Mass/Vol] 10.4 mg/dL High 8.6-10.3 [facility] Comment on above: Performed By: #### L [id number] #### [facility] (BEAKER) [address] [place] [address] Chloride [Moles/Vol] 107 mmol/L Normal 98-107 [facility] Comment on above: Performed By: #### L [id number] #### [facility] (BEAKER) [address] [place] [address] CO2 [Moles/Vol] 23 mmol/L Normal 21-31 [facility] Comment on above: Performed By: #### L [id number] #### [facility] (BEAKER) [address] [place] [address] Creatinine [Mass/Vol] 2.83 mg/dL High 0.60-1.20 [facility] Comment on above: Performed By: #### L [id number] #### [facility] (BEAKER) [address] [place] [address] FASTING? UNKNOWN Normal [facility] Comment on above: Performed By: #### L [id number] #### [facility] (BEAKER) [address] [place] [address] GLOMERULAR FILTRATION RATE ML/MIN/1.73 SQ M.PREDICTED 18.4 mL/min/1.73m*2 Low >60.0 [facility] Comment on above: Result Comment: The [facility]'s estimated glomerular filtration rate (eGFR) will no longer include consideration of race in its calculation. The National Kidney Foundation's eGFR Task Force developed new recommendations for the estimation of the glomerular filtration rate in the [place] They recommend immediate implementation of the new equation refit without the race variable in all laboratories because the calculation does not include race. In addition to not including race in the calculation and reporting, it included diversity in its development, and has acceptable performance characteristics and potential consequences that do not disproportionately affect any one group of individuals. Performed By: #### L [id number] #### [facility] (BEAKER) [address] [place] [address] Glucose [Mass/Vol] 42 mg/dL Invalid Interpretation Code 70-100 [facility] Comment on above: Performed By: #### L [id number] #### [facility] (BEAKER) [address] [place] [address] Magnesium [Mass/Vol] 3.0 mg/dL Normal 2.5-5.0 [facility] Comment on above: Performed By: #### L [id number] #### [facility] ([facility] [address] [place] [address] Potassium [Moles/Vol] 3.6 mmol/L Normal 3.5-5.1 [facility] Comment on above: Performed By: #### L [id number] #### [facility] (BEAKER) [address] [place] [address] Sodium [Moles/Vol] 141 mmol/L Normal 136-145 [facility] Comment on above: Performed By: #### L [id number] #### [facility] (BEAKER) [address] [place] [address] Urea nitrogen [Mass/Vol] 44 mg/dL High 7-25 [facility] Comment on above: Performed By: #### L [id number] #### [facility] (BEAKER) [address] [place] [address] UREA NITROGEN/CREATININE (MASS RATIO) IN SER/PLAS 15.5 Normal [facility] Comment on above: Performed By: #### L [id number] #### [facility] ([facility] [address] [place] [address] VITAMIN D 25 HYDROXYon 08-07 CALCIDIOL (25 [place] VITAMIN D3) (NG/ML) IN SER/PLAS 50.2 ng/mL Normal 30.0-80.0 [facility] Comment on above: Result Comment: >80. 0 Toxicity possible Performed By: #### L [id number] #### [facility] (BEAKER) [address] [place] [address] Orders Onlyon 07-06-2023 Orders Only [id number] Ja Tavera 1960 F Date Provider Department [facility] 07/06/2023 EST[facility] INF [facility] Family History Problem Relation Age of Onset Lung cancer Father Liver cancer Father Family Status - Relation Status Age at Father Normal [facility] Procedure Visiton 07-03-2023 Procedure Visit [id number] Ja Tavera Rachelle 1960 F Date Provider Department Center 07/03/2023 [id number], OBI [facility] Second [place] Family History Problem Relation Age of Onset Lung cancer Father Liver cancer Father Family Status - Relation Status Age at Father Level of Service:44739 NM OFFICE/OUTPT VISIT,PROCEDURE ONLY Normal [facility] Orders Onlyon 06-16-2023 Orders Only [id number] Ja Tavera Rachelle 1960 F Date Provider Department Center 06/16/2023 ESTBEAN STR[facility] INF [facility] Family History Problem Relation Age of Onset Lung cancer Father Liver cancer Father Family Status - Relation Status Age at Father Normal [facility] BILIRUBIN, DIRECTon 06-06-19 24 Magnesium [Mass/Vol] 0.1 mg/dL Normal 0-0.2 [facility] Comment on above: Performed By: #### L [id number] #### [facility] ([facility]) [address] [place] [address] CBC WITH AUTO DIFFERENTIALon 06-06-2023 Basophils (Bld) [#/Vol] 0.05 10*3/uL Normal 0.00-0.20 [facility] Comment on above: Performed By: #### L [id number] #### [facility] ([facility]) [address] [place] [address] Basophils/100 WBC (Bld) 0.5 % Normal 0.0-1.0 [facility] Comment on above: Performed By: #### L [id number] #### [facility] ([facility]) [address] [place] [address] Eosinophils (Bld) [#/Vol] 0.17 10*3/uL Normal 0.00-0.50 [facility] Comment on above: Performed By: #### L [id number] #### [facility] (BEAKER) [address] [place] [address] Eosinophils/100 WBC (Bld) 1.7 % Normal 0.0-6.0 [facility] Comment on above: Performed By: #### L [id number] #### [facility] [address] [place] [address] Erythrocyte distribution width (RBC) [Ratio] 14.1 % Normal 11.5-15.0 [facility] Comment on above: Performed By: #### L [id number] #### [facility] ([facility]) [address] [place] [address] ERYTHROCYTE MEAN CORPUSCULAR HEMOGLOBIN CONCENTRATION (G/DL) BY AUTOMATED 32.5 g/dL Normal 32.0-35.0 [facility] Comment on above: Performed By: #### L [id number] #### [facility] ([facility]) [address] [place] [address] Hematocrit (Bld) [Volume fraction] 45.5 % Normal 36.0-48.0 [facility] Comment on above: Performed By: #### L [id number] #### [facility] ([facility]) [address] [place] [address] Hemoglobin (Bld) [Mass/Vol] 14.8 g/dL Normal 12.0-15.0 [facility] Comment on above: Performed By: #### L [id number] #### [facility] ([facility] [address] [place] [address] Immature granulocytes (Bld) [#/Vol] 0.06 10*3/uL Normal 0.00-0.20 [facility] Comment on above: Performed By: #### L [id number] #### [facility] (BEAKER) [address] [place] [address] Immature granulocytes/100 WBC (Bld) 0.6 % Normal 0.0-1.0 [facility] Comment on above: Performed By: #### L [id number] #### [facility] (BEAKER) [address] [place] [address] Lymphocytes (Bld) [#/Vol] 2.40 10*3/uL Normal 1.20-4.00 [facility] Comment on above: Performed By: #### L [id number] #### [facility] ([facility]ER) [address] [place] [address] Lymphocytes/100 WBC (Bld) 24.4 % Normal 20.0-45.0 [facility] Comment on above: Performed By: #### L [id number] #### [facility] (BEAKER) [address] [place] [address] MCH (RBC) [Entitic mass] 27.4 pg Normal 27.0-33.0 [facility] Comment on above: Performed By: #### L [id number] #### [facility] (BEAKER) [address] [place] [address] MCV (RBC) [Entitic vol] 84.3 fL Normal 82.0-98.0 [facility] Comment on above: Performed By: #### L [id number] #### [facility] (BEAKER) [address] [place] [address] Monocytes (Bld) [#/Vol] 1.26 10*3/uL High 0.10-1.00 [facility] Comment on above: Performed By: #### L [id number] #### [facility] (BEAKER) [address] [place] [address] Monocytes/100 WBC (Bld) 12.8 % High 5.0-12.0 [facility] Comment on above: Performed By: #### L [id number] #### [facility] ([facility]) [address] [place] [address] Neutrophils (Bld) [#/Vol] 5.88 10*3/uL Normal 1.60-7.60 [facility] Comment on above: Performed By: #### L [id number] #### [facility] ([facility]) [address] [place] [address] Neutrophils/100 WBC (Bld) 60.0 % Normal 40.0-72.0 [facility] Comment on above: Performed By: #### L [id number] #### [facility] ([facility]) [address] [place] [address] NRBC (PER 100 WBCS) BY AUTOMATED COUNT 0.0 % Normal 0 [facility] Comment on above: Performed By: #### L [id number] #### [facility] ([facility]) [address] [place] [address] PLATELETS (10*3/UL) IN BLOOD AUTOMATED COUNT 192 10*3/uL Normal 150-400 [facility] Comment on above: Performed By: #### L [id number] #### [facility] ([facility]) [address] [place] [address] RBC (Bld) [#/Vol] 5.40 10*6/uL High 3.80-5.[address] [facility] Comment on above: Performed By: #### L [id number] #### [facility] ([facility]) [address] [place] [address] WBC (Bld) [#/Vol] 9.82 10*3/uL Normal 4.00-10.[address] [facility] Comment on above: Performed By: #### L [id number] #### [facility] ([facility]) [address] [place] [address] COMPREHENSIVE METABOLIC PANE Macario 06-06-2023 Albumin [Mass/Vol] 3.6 g/dL Normal 3.5-5.7 [facility] Comment on above: Performed By: #### L [id number] #### [facility] ([facility]) [address] [place] [address] ALP [Catalytic activity/Vol] 68 U/L Normal 34-104 [facility] Comment on above: Performed By: #### L [id number] #### [facility] ([facility]) [address] [place] [address] ALT [Catalytic activity/Vol] 21 U/L Normal 7-52 [facility] Comment on above: Performed By: #### L [id number] #### [facility] [address] [place] [address] Anion gap [Moles/Vol] 14 mmol/L Normal 7-20 [facility] Comment on above: Performed By: #### L [id number] #### [facility] ([facility]) [address] [place] [address] AST [Catalytic activity/Vol] 22 U/L Normal 13-39 [facility] Comment on above: Performed By: #### L [id number] #### [facility] ([facility]) [address] [place] [address] Bilirubin [Mass/Vol] 0.5 mg/dL Normal 0.3-1.0 [facility] Comment on above: Performed By: #### L [id number] #### [facility] ([facility]) [address] [place] [address] Calcium [Mass/Vol] 9.7 mg/dL Normal 8.6-10.3 [facility] Comment on above: Performed By: #### L [id number] #### [facility] ([facility] [address] [place] [address] Chloride [Moles/Vol] 108 mmol/L High 98-107 [facility] Comment on above: Performed By: #### L [id number] #### [facility] [address] [place] [address] CO2 [Moles/Vol] 24 mmol/L Normal 21-31 [facility] Comment on above: Performed By: #### L [id number] #### [facility] (BEAKER) [address] [place] [address] Creatinine [Mass/Vol] 2.44 mg/dL High 0.60-1.20 [facility] Comment on above: Performed By: #### L [id number] #### [facility] (BEAKER) [address] [place] [address] GLOMERULAR FILTRATION RATE ML/MIN/1.73 SQ M.PREDICTED 22.0 mL/min/1.73m*2 Low >60.0 [facility] Comment on above: Result Comment: The [facility]???s estimated glomerular filtration rate (eGFR) will no longer include consideration of race in its calculation. The National Kidney Foundation???s eGFR Task Force developed new recommendations for the estimation of the glomerular filtration rate in the [place] They recommend immediate implementation of the new equation refit without the race variable in all laboratories because the calculation does not include race. In addition to not including race in the calculation and reporting, it included diversity in its development, and has acceptable performance characteristics and potential consequences that do not disproportionately affect any one group of individuals. Performed By: #### L [id number] #### [facility] ([facility]) [address] [place] [address] Glucose [Mass/Vol] 84 mg/dL Normal 70-100 [facility] Comment on above: Performed By: #### L [id number] #### [facility] ([facility]) [address] [place] [address] Potassium [Moles/Vol] 4.1 mmol/L Normal 3.5-5.1 [facility] Comment on above: Performed By: #### L [id number] #### [facility] ([facility]) [address] [place] [address] Protein [Mass/Vol] 6.7 g/dL Normal 6.0-8.3 [facility] Comment on above: Performed By: #### L [id number] #### [facility] [address] [place] [address] Sodium [Moles/Vol] 142 mmol/L Normal 136-145 [facility] Comment on above: Performed By: #### L [id number] #### [facility] (BEAKER) [address] [place] [address] Urea nitrogen [Mass/Vol] 34 mg/dL High 7-25 [facility] Comment on above: Performed By: #### L [id number] #### [facility] ([facility]AKER) [address] [place] [address] UREA NITROGEN/CREATININE (MASS RATIO) IN SER/PLAS 13.9 Normal [facility] Comment on above: Performed By: #### L [id number] #### [facility] (BEAKER) [address] [place] [address] EVEROLIMUS, QUANTITATIVEon 0 06-06-2023 EVEROLIMUS BY HPLC-MS/MS 5.3 ng/mL Normal [facility] Comment on above: Result Comment: Ther apeutic Range: Kidney transplant (in combination with Cyclosporine): 3-8 ng/mL Liver transplant (in combination with Tacrolimus): 3-8 ng/mL Toxic value: Greater than 15 ng/mL Everolimus marketed as Zortress is FDA approved for prophylaxis of organ rejection in adult patients receiving a kidney and liver transplant. Everolimus marketed as Afinitor is FDA approved for the treatment of renal cell carcinoma and for the treatment of subependymal giant cell astrocytoma (SEGA) associated with tuberous sclerosis (TS) in patients who are not candidates for curative surgical resection. The suggested therapeutic range for treatment of SEGA is 5-15 ng/mL, which is based on a predose (trough) specimen. The optimal therapeutic range for a given patient may differ from this suggested range based on the indication for therapy, treatment phase (initiation or maintenance), use in combination with other drugs, time of specimen collection relative to prior dose, type of transplanted organ, and/or the therapeutic approach of the transplant center. This test was developed and its performance characteristics determined by [facility]. It has not been cleared or approved by the US Food and Drug Administration. This test was performed in a CLIA certified laboratory and is intended for clinical purposes. Performed By: [facility] [address] [place] [address] [employer] Referee: Young Lopez MD, PhD CLIA Number: [id number] Performed By: #### L [id number] #### [facility] (BEAKER) [address] [place] [address] HEMOGLOBIN A1Con 06-06-2023 Glucose [Mass/Vol] 186 mg/dL Normal [facility] Comment on above: Performed By: #### L [id number] #### [facility] [address] [place] [address] HbA1c (Bld) [Mass fraction] 8.1 % High 4.0-6.0 [facility] Comment on above: Performed By: #### L [id number] #### [facility] ([facility]) [address] [place] [address] LIPID PANELon 06-06-2023 CHOL/HDL 5.0 mg/dL Normal [facility] Comment on above: Performed By: #### L [id number] #### [facility] ([facility]) [address] [place] [address] Cholesterol [Mass/Vol] 247 mg/dL High 120-200 [facility] Comment on above: Performed By: #### L [id number] #### [facility] ([facility]) [address] [place] [address] CHOLESTEROL IN LDL (MG/DL) IN SERUM OR PLASMA BY CALCULATION Normal [facility] Comment on above: Result Comment: Calc ulated LDL invalid, triglycerides >400 mg/dl Performed By: #### L [id number] #### [facility] ([facility]) [address] [place] [address] Magnesium [Mass/Vol] 442 mg/dL High 40-149 [facility] Comment on above: Result Comment: TRIG LYCERIDE REFERENCE RANGE: 20 YEARS AND OLDER CARDIOVASCULAR RISK LESS THAN 150 mg/dL LOW RISK 150 TO 199 mg/dL BORDERLINE RISK 200 mg/dL AND GREATER HIGH RISK Performed By: #### L [id number] #### [facility] [address] [place] [address] Magnesium [Mass/Vol] 49 mg/dL Normal 23-92 [facility] Comment on above: Performed By: #### L [id number] #### [facility] [address] [place] [address] NON HDL CHOL. (LDL+VLDL) 198 Normal [facility] Comment on above: Performed By: #### L [id number] #### [facility] ([facility]) [address] [place] [address] TOTAL VLDL-C 88 mg/dL High 0-40 [facility] Comment on above: Performed By: #### L [id number] #### [facility] ([facility]) [address] [place] [address] Labon 06-06-2023 Lab [id number] OctavioJa Rachelle 1960 F Date Provider Department [facility] 06/06/20235-[facility] OPD LAB RESOURCE [facility] OPD [facility] C Family History Problem Relation Age of Onset Lung cancer Father Liver cancer Father Family Status - Relation Status Age at Father Normal [facility] MAGNESIUMon 06-06-2023 Magnesium [Mass/Vol] 1.8 mg/dL Low 1.9-2.7 [facility] Comment on above: Performed By: #### L [id number] #### [facility] ([facility]) [address] [place] [address] PHOSPHORUSon 06-06-2023 Magnesium [Mass/Vol] 2.0 mg/dL Low 2.5-5.0 [facility] Comment on above: Performed By: #### L [id number] #### [facility] ([facility]) [address] [place] [address] TACROLIMUS LEVELon Tacrolimus (Bld) [Mass/Vol] 5.2 ng/mL Normal 5.0-20.0 [facility] Comment on above: Result Comment: The [employer] Tacrolimus assay is a delayed one-step immunoassay for the quantitative determination of tacrolimus in human whole blood using the chemiluminescent microparticle immunoassay (CMIA) technology with flexible assay protocols, referred to as Chemiflex. Performed By: #### L [id number] #### [facility] ([facility]) [address] [place] [address] URIC ACIDon 06-06-2023 Magnesium [Mass/Vol] 2.7 mg/dL Normal 2.3-6.6 [facility] Comment on above: Performed By: #### L [id number] #### [facility] ([facility]) [address] [place] [address] Infusionon 05-25-2023 Infusion [id number] aJ Tavera 1960 F Date Provider Department Center 05/25/20232271-[facility] CHAIR 1 DCC INF DCC Family History Problem Relation Age of Onset Lung cancer Father Liver cancer Father Family Status - Relation Status Age at Father Normal [facility] Orders Onlyon 05-21-2023 Orders Only [id number] Ja Tavera Rachelle 1960 F Date Provider Department Center 05/21/2023 [id number], OBI TXP None Family History Problem Relation Age of Onset Lung cancer Father Liver cancer Father Family Status - Relation Status Age at Father Normal [facility] BILIRUBIN, DIRECTon 04-15-19 Magnesium [Mass/Vol] 0.1 mg/dL Normal 0-0.2 [facility] Comment on above: Performed By: #### L [id number] #### [facility] ([facility]) [address] [place] [address] CBC WITH AUTO DIFFERENTIALon 04-15-2023 Basophils (Bld) [#/Vol] 0.06 10*3/uL Normal 0.00-0.20 [facility] Comment on above: Performed By: #### L [id number] #### [facility] ([facility]) [address] [place] [address] Basophils/100 WBC (Bld) 0.5 % Normal 0.0-1.0 [facility] Comment on above: Performed By: #### L [id number] #### [facility] ([facility]) [address] [place] [address] Eosinophils (Bld) [#/Vol] 0.22 10*3/uL Normal 0.00-0.50 [facility] Comment on above: Performed By: #### L [id number] #### [facility] ([facility] [address] [place] [address] Eosinophils/100 WBC (Bld) 2.0 % Normal 0.0-6.0 [facility] Comment on above: Performed By: #### L [id number] #### [facility] ([facility]) [address] [place] [address] Erythrocyte distribution width (RBC) [Ratio] 14.4 % Normal 11.5-15.0 [facility] Comment on above: Performed By: #### L [id number] #### [facility] ([facility]) [address] [place] [address] ERYTHROCYTE MEAN CORPUSCULAR HEMOGLOBIN CONCENTRATION (G/DL) BY AUTOMATED 32.4 g/dL Normal 32.0-35.0 [facility] Comment on above: Performed By: #### L [id number] #### [facility] ([facility]) [address] [place] [address] Hematocrit (Bld) [Volume fraction] 45.1 % Normal 36.0-48.0 [facility] Comment on above: Performed By: #### L [id number] #### [facility] ([facility]) [address] [facility] [address] Hemoglobin (Bld) [Mass/Vol] 14.6 g/dL Normal 12.0-15.0 [facility] Comment on above: Performed By: #### L [id number] #### [facility] ([facility]) [address] [place] [address] Immature granulocytes (Bld) [#/Vol] 0.06 10*3/uL Normal 0.00-0.20 [facility] Comment on above: Performed By: #### L [id number] #### [facility] ([facility]) [address] [place] [address] Immature granulocytes/100 WBC (Bld) 0.5 % Normal 0.0-1.0 [facility] Comment on above: Performed By: #### L [id number] #### [facility] ([facility] [address] [place] [address] Lymphocytes (Bld) [#/Vol] 2.76 10*3/uL Normal 1.20-4.00 [facility] Comment on above: Performed By: #### L [id number] #### [facility] ([facility] [address] [place] [address] Lymphocytes/100 WBC (Bld) 24.9 % Normal 20.0-45.0 [facility] Comment on above: Performed By: #### L [id number] #### [facility] ([facility]) [address] [place] [address] MCH (RBC) [Entitic mass] 26.9 pg Low 27.0-33.0 [facility] Comment on above: Performed By: #### L [id number] #### [facility] ([facility]) [address] [place] [address] MCV (RBC) [Entitic vol] 83.2 fL Normal 82.0-98.0 [facility] Comment on above: Performed By: #### L [id number] #### [facility] ([facility]) [address] [place] [address] Monocytes (Bld) [#/Vol] 1.42 10*3/uL High 0.10-1.00 [facility] Comment on above: Performed By: #### L [id number] #### [facility] ([facility]) [address] [place] [address] Monocytes/100 WBC (Bld) 12.8 % High 5.0-12.0 [facility] Comment on above: Performed By: #### L [id number] #### [facility] ([facility] [address] [place] [address] Neutrophils (Bld) [#/Vol] 6.58 10*3/uL Normal 1.60-7.60 [facility] Comment on above: Performed By: #### L [id number] #### [facility] ([facility]) [address] [place] [address] Neutrophils/100 WBC (Bld) 59.3 % Normal 40.0-72.0 [facility] Comment on above: Performed By: #### L [id number] #### [facility] ([facility]) [address] [place] [address] NRBC (PER 100 WBCS) BY AUTOMATED COUNT 0.0 % Normal 0 [facility] Comment on above: Performed By: #### L [id number] #### [facility] ([facility]) [address] [place] [address] PLATELETS (10*3/UL) IN BLOOD AUTOMATED COUNT 182 10*3/uL Normal 150-400 [facility] Comment on above: Performed By: #### L [id number] #### [facility] ([facility]) [address] [place] [address] RBC (Bld) [#/Vol] 5.42 10*6/uL High 3.80-5.[address] [facility] Comment on above: Performed By: #### L [id number] #### [facility] ([facility]) [address] [place] [address] WBC (Bld) [#/Vol] 11.10 10*3/uL High 4.00-10.60 [facility] Comment on above: Performed By: #### L [id number] #### [facility] ([facility]) [address] [place] [address] COMPREHENSIVE METABOLIC PANE Macario 04-15-2023 Albumin [Mass/Vol] 4.1 g/dL Normal 3.5-5.7 [facility] Comment on above: Performed By: #### L [id number] #### [facility] ([facility]) [address] [place] [address] ALP [Catalytic activity/Vol] 52 U/L Normal 34-104 [facility] Comment on above: Performed By: #### L [id number] #### [facility] ([facility]) [address] [place] [address] ALT [Catalytic activity/Vol] 17 U/L Normal 7-52 [facility] Comment on above: Performed By: #### L [id number] #### [facility] ([facility]) [address] [place] [address] Anion gap [Moles/Vol] 13 mmol/L Normal 7-20 [facility] Comment on above: Performed By: #### L [id number] #### [facility] ([facility]) [address] [place] [address] AST [Catalytic activity/Vol] 20 U/L Normal 13-39 [facility] Comment on above: Performed By: #### L [id number] #### [facility] ([facility]) [address] [place] [address] Bilirubin [Mass/Vol] 0.5 mg/dL Normal 0.3-1.0 [facility] Comment on above: Performed By: #### L [id number] #### [facility] ([facility]) [address] [place] [address] Calcium [Mass/Vol] 10.4 mg/dL High 8.6-10.3 [facility] Comment on above: Performed By: #### L [id number] #### [facility] ([facility]) [address] [place] [address] Chloride [Moles/Vol] 109 mmol/L High 98-107 [facility] Comment on above: Performed By: #### L [id number] #### [facility] ([facility]) [address] [place] [address] CO2 [Moles/Vol] 24 mmol/L Normal 21-31 [facility] Comment on above: Performed By: #### L [id number] #### [facility] ([facility]) [address] [place] [address] Creatinine [Mass/Vol] 2.43 mg/dL High 0.60-1.20 [facility] Comment on above: Performed By: #### L [id number] #### [facility] ([facility]) [address] [place] [address] GLOMERULAR FILTRATION RATE ML/MIN/1.73 SQ M.PREDICTED 22.1 mL/min/1.73m*2 Low >60.0 [facility] Comment on above: Result Comment: The [facility]???s estimated glomerular filtration rate (eGFR) will no longer include consideration of race in its calculation. The National Kidney Foundation???s eGFR Task Force developed new recommendations for the estimation of the glomerular filtration rate in the [place] They recommend immediate implementation of the new equation refit without the race variable in all laboratories because the calculation does not include race. In addition to not including race in the calculation and reporting, it included diversity in its development, and has acceptable performance characteristics and potential consequences that do not disproportionately affect any one group of individuals. Performed By: #### L [id number] #### [facility] ([facility]) [address] [place] [address] Glucose [Mass/Vol] 85 mg/dL Normal 70-100 [facility] Comment on above: Performed By: #### L [id number] #### [facility] ([facility]) [address] [place] [address] Potassium [Moles/Vol] 3.8 mmol/L Normal 3.5-5.1 [facility] Comment on above: Performed By: #### L [id number] #### [facility] ([facility]) [address] [place] [address] Protein [Mass/Vol] 7.2 g/dL Normal 6.0-8.3 [facility] Comment on above: Performed By: #### L [id number] #### [facility] ([facility]) [address] [place] [address] Sodium [Moles/Vol] 142 mmol/L Normal 136-145 [facility] Comment on above: Performed By: #### L [id number] #### [facility] ([facility]) [address] [place] [address] Urea nitrogen [Mass/Vol] 53 mg/dL High 7-25 [facility] Comment on above: Performed By: #### L [id number] #### [facility] ([facility]) [address] [place] [address] UREA NITROGEN/CREATININE (MASS RATIO) IN SER/PLAS 21.8 Normal [facility] Comment on above: Performed By: #### L [id number] #### [facility] ([facility]) [address] [place] [address] EVEROLIMUS, QUANTITATIVEon 0 04-15-2023 EVEROLIMUS BY HPLC-MS/MS 4.5 ng/mL Normal [facility] Comment on above: Result Comment: Ther apeutic Range: Kidney transplant (in combination with Cyclosporine): 3-8 ng/mL Liver transplant (in combination with Tacrolimus): 3-8 ng/mL Toxic value: Greater than 15 ng/mL Everolimus marketed as Zortress is FDA approved for prophylaxis of organ rejection in adult patients receiving a kidney and liver transplant. Everolimus marketed as Afinitor is FDA approved for the treatment of renal cell carcinoma and for the treatment of subependymal giant cell astrocytoma (SEGA) associated with tuberous sclerosis (TS) in patients who are not candidates for curative surgical resection. The suggested therapeutic range for treatment of SEGA is 5-15 ng/mL, which is based on a predose (trough) specimen. The optimal therapeutic range for a given patient may differ from this suggested range based on the indication for therapy, treatment phase (initiation or maintenance), use in combination with other drugs, time of specimen collection relative to prior dose, type of transplanted organ, and/or the therapeutic approach of the transplant center. This test was developed and its performance characteristics determined by [facility]. It has not been cleared or approved by the US Food and Drug Administration. This test was performed in a CLIA certified laboratory and is intended for clinical purposes. Performed By: [facility] [address] [place] [address] [employer] Referee: Young Lopez MD, PhD CLIA Number: [id number] Performed By: #### L [id number] #### [facility] ([facility]) [address] [place] [address] LIPID PANELon 04-15-2023 CHOL/HDL 4.7 mg/dL Normal [facility] Comment on above: Performed By: #### L [id number] #### [facility] ([facility]) [address] [place] [address] Cholesterol [Mass/Vol] 206 mg/dL High 120-200 [facility] Comment on above: Performed By: #### L [id number] #### [facility] ([facility]) [address] [place] [address] Magnesium [Mass/Vol] 369 mg/dL High 40-149 [facility] Comment on above: Result Comment: TRIG LYCERIDE REFERENCE RANGE: 20 YEARS AND OLDER CARDIOVASCULAR RISK LESS THAN 150 mg/dL LOW RISK 150 TO 199 mg/dL BORDERLINE RISK 200 mg/dL AND GREATER HIGH RISK Performed By: #### L [id number] #### [facility] ([facility]) [address] [place] [address] Magnesium [Mass/Vol] 88 mg/dL Normal 0-160 [facility] Comment on above: Performed By: #### L [id number] #### [facility] ([facility]) [address] [place] [address] Magnesium [Mass/Vol] 44 mg/dL Normal 23-92 [facility] Comment on above: Performed By: #### L [id number] #### [facility] ([facility]) [address] [place] [address] NON HDL CHOL. (LDL+VLDL) 162 Normal [facility] Comment on above: Performed By: #### L [id number] #### [facility] ([facility]) [address] [place] [address] TOTAL VLDL-C 74 mg/dL High 0-40 [facility] Comment on above: Performed By: #### L [id number] #### [facility] ([facility]) [address] [place] [address] Labon 04-15-2023 Lab [id number] Ja Tavera 1960 F Date Provider Department Center 04/15/2023 2245-[facility]PD LAB RESOURCE [facility] SC Medical C Family History Problem Relation Age of Onset Lung cancer Father Liver cancer Father Family Status - Relation Status Age at Father Normal [facility] MAGNESIUMon 04-15-2023 Magnesium [Mass/Vol] 1.8 mg/dL Low 1.9-2.7 [facility] Comment on above: Performed By: #### L [id number] #### [facility] [address] [place] [address] PHOSPHORUSon 04-15-2023 Magnesium [Mass/Vol] 2.6 mg/dL Normal 2.3-6.6 [facility] Comment on above: Performed By: #### L [id number] #### [facility] ([facility]) [address] [place] [address] Performed By: #### L [id number] #### [facility] ([facility]) [address] [place] [address] Orders Onlyon 04-14-2023 Orders Only [id number] Ja Tavera 1960 F Date Provider Department Center 04/14/2023 ESTEBAN STRATTON [facility] INF [facility] Family History Problem Relation Age of Onset Lung cancer Father Liver cancer Father Family Status - Relation Status Age at Father Normal [facility] Orders Onlyon 04-01-2023 Orders Only [id number] Ja Tavera 1960 F Date Provider Department Center 04/01/2023 ESTEBAN STRATTON INF [facility] Family History Problem Relation Age of Onset Lung cancer Father Liver cancer Father Family Status - Relation Status Age at Father Normal [facility] Orders Onlyon 03-30-2023 Orders Only [id number] Ja Tavera 1960 F Date Provider Department Center 03/30/2023 [id number], OBI [facility] URO [place] Family History Problem Relation Age of Onset Lung cancer Father Liver cancer Father Family Status - Relation Status Age at Father Normal [facility] Orders Only [id number] Ja Tavera 1960 F Date Provider Department Center 03/30/2023 [id number], OBI TXP None Family History Problem Relation Age of Onset Lung cancer Father Liver cancer Father Family Status - Relation Status Age at Father Normal [facility] MG MAMM SCREEN 3D JAZMIN CADon 03-07-2022 MG MAMM SCREEN 3D JAZMIN CAD Patient: JA TAVERA Exam Date: 03/07/2022 : 1960 Gender:F Ordering : DR ALEJANDRO VILLAGRAN D.O. Admission #: [id number] Family : Order #: [id number] CLICK HERE TO VIEW EXAM RADIOLOGY REPORT PROCEDURE: MAMMOGRAM SCREENING 3D BILATERAL CAD COMPARISON: MG MAMM SCREEN 3D JAZMIN CAD, 01/08/2021. MG MAMM SCREEN JAZMIN W CAD, 11/16/2019. MG MAMM SCREEN JAZMIN W CAD, 11/02/2018. DIGITIZED_MAMMO, 07/16/2009. INDICATIONS: Screening for malignant neoplasm of breast Calculator Name NCI Breast Cancer Risk Assessment Tool 5 Year Breast Cancer Risk 1.40% Lifetime Breast Cancer Risk 7.20% Personal Breast Cancer No Personal Ovarian Cancer No Treatments None Family Cancers Grandmother-maternal with breast cancer at age 70; Father with lung/liver cancer at age 60; Uncle-maternal with prostate cancer at age 50. LOCATION: [facility] BREAST COMPOSITION: Heterogeneously dense,which may obscure small masses. FINDINGS: DIAGNOSTIC CATEGORY 1--NEGATIVE. RIGHT BREAST: No significant suspicious finding. No significant change has occurred. LEFT BREAST: No significant suspicious finding. No significant change has occurred. RECOMMENDATIONS: ROUTINE MAMMOGRAM AND CLINICAL EVALUATION IN 12 MONTHS. PLEASE NOTE: A NORMAL MAMMOGRAM DOES NOT EXCLUDE THE POSSIBILITY OF BREAST CANCER. A CLINICALLY SUSPICIOUS PALPABLE LUMP SHOULD BE BIOPSIED. Dictated by: Scott Liz M.D. on 03/07/2022 at 13:30 Approved by: Scott Liz M.D. on 03/07/2022 at 13:34 Normal [facility] XR DEXA BONE DENSITYon 03-07 XR DEXA BONE DENSITY EXAMINATION: XR DEX A BONE DENSITY, 03/07/2022 9:20 AM EST HISTORY: Menopause present COMPARISON: DEXA bone densitometry 11/16/2019 TECHNIQUE: Dual-energy X-ray absorptiometry (DEXA) bone density study performed for the axial skeleton. FINDINGS: SPINE ANALYSIS: Average bone mineral density is 1.440 g/cm2. T-score (standard deviation relative to young adult mean): 2.2 . -0.9% change is prior study. HIP ANALYSIS: Lowest bone mineral density is within the right femoral neck, 0.914 g/cm2. T-score (standard deviation relative to young adult mean): -0.9 . +3.4% change since prior study. IMPRESSION: World [employer] Classification: Normal - Low Fracture Risk Electronically authenticated by: SCOTT LIZ Date: 2022-03-07 13:45 Normal [facility] FREE T3on 11-25-2021 FREE T3 1.85 pg/mlL Critically low 2.18-3.98 [facility] Comment on above: Performed By: #### F T3, TSH #### [facility] [address] [address] [address] Ulysses Montero FREE T4on 11-25-2021 Free T4 [Mass/Vol] 1.29 ng/dL Normal 0.76-1.46 [facility] Comment on above: Performed By: #### F T4 #### [facility] [address] [address] [address] Ulysses Montero TSHon 11-25-2021 TSH 0.023 uIU/mL Critically low 0.358-3.740 [facility] Comment on above: Performed By: #### F T3, TSH #### [facility] [address] [address] [address] Ulysses Montero CBC W/DIFFon 10-05-2021 ABS IMM GRANS 0.1 10*3/uL Normal 0.0-0.2 [facility] Comment on above: Performed By: #### 5 0103 #### [facility] [address] [place] [address], [facility] ABS NEUTROPHILS 5.1 10*3/uL Normal 1.6-7.6 The [facility] Comment on above: Performed By: #### 5 0103 #### [facility] [address] [place] [address], [facility] Basophils (Bld) [#/Vol] 0.1 10*3/uL Normal 0.0-0.2 [facility] Comment on above: Performed By: #### 5 0103 #### [facility] [address] [place] [address], [facility] Basophils/100 WBC (Bld) 0.7 % Normal 0.0-1.0 [facility] Comment on above: Performed By: #### 5 0103 #### [facility] [address] [place] [address], [facility] Eosinophils (Bld) [#/Vol] 0.2 10*3/uL Normal 0.0-0.5 [facility] Comment on above: Performed By: #### 5 0103 #### [facility] [address] [facility] [place] [address], [facility] Eosinophils/100 WBC (Bld) 2.2 % Normal 0.0-6.0 [facility] Comment on above: Performed By: #### 5 3 #### [facility] [address] [facility] Erythrocyte distribution width (RBC) [Ratio] 13.4 % Normal 11.5-15.0 [facility] Comment on above: Performed By: #### 5 0103 #### [facility] [address] Hematocrit (Bld) [Volume fraction] 39.9 % Normal 36.0-45.0 [facility] Comment on above: Performed By: #### 5 0103 #### [facility] [address] [facility] [place] [address], [facility] Hemoglobin (Bld) [Mass/Vol] 13.0 g/dL Normal 12.0-15.0 [facility] Comment on above: Performed By: #### 5 0103 #### [facility] [address] [place] [address], [facility] IMMATURE GRANS 0.6 % Normal 0.0-1.0 [facility] Comment on above: Performed By: #### 5 0103 #### [facility] [address] Lymphocytes (Bld) [#/Vol] 2.6 10*3/uL Normal 1.2-4.0 [facility] Comment on above: Performed By: #### 5 0103 #### [facility] [address] [facility] Lymphocytes/100 WBC (Bld) 28.7 % Normal 20.0-45.0 [facility] Comment on above: Performed By: #### 0103 #### [facility] [address] [place] [address], [facility] MCH (RBC) [Entitic mass] 27.9 pg Normal 27.0-33.0 [facility] Comment on above: Performed By: #### 102 #### [facility] [address] MCHC (RBC) [Mass/Vol] 32.6 g/dL Normal 32.0-35.0 [facility] Comment on above: Performed By: #### 3 #### [facility] [address] [place] [address], [facility] MCV (RBC) [Entitic vol] 85.6 fL Normal 82.0-98.0 [facility] Comment on above: Performed By: #### 5 3 #### [facility] [address] [place] [address], [facility] Monocytes (Bld) [#/Vol] 1.1 10*3/uL High 0.1-1.0 [facility] Comment on above: Performed By: #### 5 0103 #### [facility] [address] [place] [address], [facility] MONOS 11.9 % Normal 5.0-12.0 [facility] Comment on above: Performed By: #### 5 3 #### [facility] [address] [facility] Neutrophils/100 WBC (Bld) 55.9 % Normal 40.0-72.0 [facility] Comment on above: Performed By: #### 5 0103 #### [facility] [address] [place] [address], [facility] Nucleated RBC/100 WBC (Bld) [Ratio] 0 % Normal 0-0 [facility] Comment on above: Performed By: #### 5 0103 #### [facility] [address] [facility] [place] [address], [facility] PLAT CNT 164 10*3/uL Normal 150-400 [facility] Comment on above: Performed By: #### 5 0103 #### [facility] [address] [place] [address], [facility] RBC (Bld) [#/Vol] 4.66 10*6/uL Normal 3.80-5.00 [facility] Comment on above: Performed By: #### 5 0103 #### [facility] [address] [place] [address], [facility] WBC (Bld) [#/Vol] 9.04 10*3/uL Normal 4.00-10.60 [facility] Comment on above: Performed By: #### 5 0103 #### [facility] [address] [place] [address], [facility] COMP METABOLIC PANELon 10-05 Albumin [Mass/Vol] 3.8 g/dL Normal 3.5-5.7 [facility] Comment on above: Performed By: #### 0 0121, 58644, 66474, 95857, 55951, 53572 ####[facility] [facility] ALKALINE PHOSPH 51 IU/L Normal 34-[address] [facility] Comment on above: Performed By: #### 0 0121, 52859, 99958, 75019, 55641, 40473 ####[facility] [place] [address], [place] ALT [Catalytic activity/Vol] 16 U/L Normal 7-52 [facility] Comment on above: Performed By: #### 0 0121, 90972, 26536, 10960, 40818, 87942 ####[facility] [place] [address], [place] AST [Catalytic activity/Vol] 18 U/L Normal 13-39 [facility] Comment on above: Performed By: #### 0 0121, 90187, 94769, 14426, 30975, 26311 ####[facility] [place] [address], [place] Bilirubin [Mass/Vol] 0.8 mg/dL Normal 0.3-1.0 [facility] Comment on above: Performed By: #### 0 0121, 14491, 09045, 84962, 08360, 45663 ####[facility] [place] [address], [place] Calcium [Mass/Vol] 9.9 mg/dL Normal 8.6-10.3 [facility] Comment on above: Performed By: #### 0 0121, 01073, 58333, 58926, 41793, 91240 ####[facility] [place] [address], [place] Chloride [Moles/Vol] 107 mmol/L Normal 98-107 [facility] Comment on above: Performed By: #### 0 0121, 99420, 20673, 05137, 27743, 74176 ####[facility] [place] [address], [place] CO2 [Moles/Vol] 27 mmol/L Normal 21-31 [facility] Comment on above: Performed By: #### 0 0121, 36959, 74458, 39122, 93352, 88458 ####[facility] [place] [address], [facility] Creatinine [Mass/Vol] 2.35 mg/dL High 0.60-1.20 [facility] Comment on above: Performed By: #### 0 0121, 45967, 45285, 79309, 00592, 77930 ####[facility] [place] [address], [facility] EGFR 23 ml/min/1.73sq m Abnormal >60 [facility] Comment on above: Result Comment: [facility]'s estimated glomerular filtration rate (eGFR) will no longer include consideration of race in its calculation. The National Kidney Foundation's eGFR Task Force developed new recommendations for the estimation of the glomerular filtration rate in the [place] They recommend immediate implementation of the new equation refit without the race variable in all laboratories because the calculation does not include race. In addition to not including race in the calculation and reporting, it included diversity in its development, and has acceptable performance characteristics and potential consequences that do not disproportionately affect any one group of individuals. Performed By: #### 0 0121, 33091, 78803, 92016, 76519, 23724 ####[facility] [place] [address], [place] Glucose [Mass/Vol] 89 mg/dL Normal 70-100 [facility] Comment on above: Performed By: #### 0 0121, 68957, 28186, 62274, 65164, 46600 ####[facility] [place] [address], [place] Potassium [Moles/Vol] 3.5 mmol/L Normal 3.5-5.1 [facility] Comment on above: Performed By: #### 0 0121, 90728, 73296, 04112, 74781, 29019 ####[facility] [place] [address], [place] Protein [Mass/Vol] 6.6 g/dL Normal 6.0-8.3 [facility] Comment on above: Performed By: #### 0 0121, 27918, 11018, 40914, 10760, 05892 ####[facility] [place] [address], [facility] Sodium [Moles/Vol] 141 mmol/L Normal 136-145 [facility] Comment on above: Performed By: #### 0 0121, 78541, 58274, 31969, 51700, 64454 ####[facility] [place] [address], [facility] Urea nitrogen [Mass/Vol] 34 mg/dL High 7-25 [facility] Comment on above: Performed By: #### 0 0121, 58391, 01831, 33026, 72948, 81617 ####[facility] [place] [address], [facility] DIRECT BILIon 10-05-2021 Bilirubin.direct [Mass/Vol] 0.2 mg/dL Normal 0.0-0.2 [facility] Comment on above: Performed By: #### 0 0121, 25486, 18900, 06105, 87282, 13018 ####[facility] [place] [address], [facility] LIPID PROFILEon 10-05-2021 Cholesterol [Mass/Vol] 205 mg/dL High 120-200 [facility] Comment on above: Result Comment: CHOL ESTEROL REFERENCE RANGE: 20 YEARS AND OLDER CARDIOVASCULAR RISK Less than 200 mg/dl Low Risk 200 to 239 mg/dl Borderline Risk 240 mg/dl and greater High Risk Performed By: #### 0 0121, 02309, 98264, 75344, 77132, 22059 ####[facility] [place] [address], [facility] Cholesterol in HDL [Mass/Vol] 47 mg/dL Normal 23-92 [facility] Comment on above: Result Comment: Slig ht variation in normal range could be due to gender and/or age. HDL CHOLESTEROL REFERENCE RANGE: 20 years and older Cardiovascular Risk > or =60 mg/dL Desirable 40 TO 59 mg/dL Low Risk <40 mg/dL High Risk Performed By: #### 0 0121, 44699, 40490, 70931, 88372, 92155 ####[facility] [place] [address], [facility] Cholesterol in LDL [Mass/Vol] 116 mg/dL Normal 0-130 [facility] Comment on above: Result Comment: LDL IS A CALCULATION LDL IS ONLY VALID IF THE TRIG IS LESS THAN 400. Performed By: #### 0 0121, 13159, 22768, 84424, 85609, 67015 ####[facility] [place] [address], [facility] Cholesterol.total/Cho lesterol in HDL [Mass ratio] 4.4 {ratio} Normal .0-4.5 [facility] Comment on above: Performed By: #### 0 0121, 38128, 80162, 73997, 85709, 46025 ####[facility] [facility] [place] [address], [facility] NON-HDL CHOLESTEROL 158 mg/dL Normal [facility] Comment on above: Performed By: #### 0 0121, 31036, 96797, 16771, 03027, 92483 ####[facility] [place] [address], [facility] Triglyceride [Mass/Vol] 211 mg/dL High 40-149 [facility] Comment on above: Result Comment: TRIG LYCERIDE REFERENCE RANGE: 20 YEARS AND OLDER CARDIOVASCULAR RISK LESS THAN 150 mg/dl LOW RISK 150 TO 199 mg/dl BORDERLINE RISK 200 mg/dl AND GREATER HIGH RISK Performed By: #### 0 0121, 74149, 41413, 03226, 57449, 18905 ####[facility] VLDL CHOL 42 mg/dL High 0-40 [facility] Comment on above: Performed By: #### 0 0121, 92119, 05187, 45015, 71163, 65570 ####[facility] MAGNESIUM BLOODon 10-05-2021 Magnesium [Mass/Vol] 2.0 mg/dL Normal 1.9-2.7 [facility] Comment on above: Performed By: #### 0 0121, 77100, 28661, 85266, 01572, 84145 ####[facility] [place] [address], [facility] PHOSPHORUS BLOODon Phosphate [Mass/Vol] 3.3 mg/dL Normal 2.5-5.0 [facility] Comment on above: Performed By: #### 0 0121, 29841, 27169, 43141, 60103, 38737 ####[facility] [facility] TACROLIMUSon 10-05-2021 Tacrolimus (Bld) [Mass/Vol] 3.1 ng/mL Low 5.0-20.0 [facility] Comment on above: Result Comment: The [employer] Tacrolimus assay is a delayed one-step immunoassay for the quantitative determination of tacrolimus in human whole blood using the chemiluminescent microparticle immunoassay (CMIA) technology with flexible assay protocols, referred to as Chemiflex. Performed By: #### 9 9914 ####[facility] [place] [address], [facility] URIC ACID BLOODon 10-05-2021 Urate [Mass/Vol] 3.2 mg/dL Normal 2.3-6.6 The [facility] Comment on above: Performed By: #### 0 0121, 77811, 23685, 34832, 02425, 40827 ####[facility] BK VIRUS QUANTITATION FOR PL ASMAon 09-28-2021 BKV Plasma Quantitation by PCR Not detected Normal The [facility] Comment on above: Result Comment: Meth od: BK virus was measured by quantitative polymerase chain reaction using a fluorescent hydrolysis probe targeting the polyomavirus BK CERTIFIED TRAVEL COUNSELOR-1 gene. The lower limit of quantitation of the assay is 500 copies of BK genome per milliliter of plasma or urine, and any detectable BK DNA below that level is reported as: Detected, <500 copies/ml. Serial BK virus measurement can be used to monitor disease activity. (Reference: George reyl. J CLIN MICRO 2004; 42:1971-0552). This test was developed and its performance characteristics determined by the [facility]. It has not been approved by the US Food and Drug Administration. However, such approval is not required for clinical implementation, and test results have been shown to be clinically useful. This laboratory is CAP accredited and CLIA certified to perform high complexity testing. Performed By: #### 5 0103 #### [facility] [address] BKV Plasma Quantitation Log by PCR Not detected Normal [facility] Comment on above: Performed By: #### 5 0103 #### [facility] [address] CBC W/DIFFon 09-28-2021 ABS IMM GRANS 0.1 10*3/uL Normal 0.0-0.2 The [facility] Comment on above: Performed By: #### 5 0103 #### [facility] [address] ABS NEUTROPHILS 4.5 10*3/uL Normal 1.6-7.6 The [facility] Comment on above: Performed By: #### 5 0103 #### [facility] [address] [place] [address], [facility] Basophils (Bld) [#/Vol] 0.1 10*3/uL Normal 0.0-0.2 [facility] Comment on above: Performed By: #### 5 0103 #### [facility] [address] [place] [address], [facility] Basophils/100 WBC (Bld) 0.8 % Normal 0.0-1.0 [facility] Comment on above: Performed By: #### 5 0103 #### [facility] [address] [place] [address], [facility] Eosinophils (Bld) [#/Vol] 0.1 10*3/uL Normal 0.0-0.5 [facility] Comment on above: Performed By: #### 5 0103 #### [facility] [address] [facility] [place] [address], [facility] Eosinophils/100 WBC (Bld) 1.5 % Normal 0.0-6.0 [facility] Comment on above: Performed By: #### 5 0103 #### [facility] [address] [facility] Erythrocyte distribution width (RBC) [Ratio] 12.9 % Normal 11.5-15.0 [facility] Comment on above: Performed By: #### 5 0103 #### [facility] [address] [facility] [place] [address], [facility] Hematocrit (Bld) [Volume fraction] 39.6 % Normal 36.0-45.0 [facility] Comment on above: Performed By: #### 5 0103 #### [facility] [address] [facility] [place] [address], [facility] Hemoglobin (Bld) [Mass/Vol] 12.6 g/dL Normal 12.0-15.0 [facility] Comment on above: Performed By: #### 5 0103 #### [facility] [address] [place] [address], [facility] IMMATURE GRANS 0.9 % Normal 0.0-1.0 Yuliana chang [facility] Comment on above: Performed By: #### 5 3 #### [facility] [address] [facility]. [address] Lymphocytes (Bld) [#/Vol] 2.1 10*3/uL Normal 1.2-4.0 [facility] Comment on above: Performed By: #### 5 3 #### [facility] [address] [place] [address], [facility] Lymphocytes/100 WBC (Bld) 26.5 % Normal 20.0-45.0 [facility] Comment on above: Performed By: #### 102 #### [facility] [address] MCH (RBC) [Entitic mass] 27.7 pg Normal 27.0-33.0 [facility] Comment on above: Performed By: #### 102 #### [facility] [address] [facility] MCHC (RBC) [Mass/Vol] 31.8 g/dL Low 32.0-35.0 [facility] Comment on above: Performed By: #### 102 #### [facility] [address] [place] [address], [facility] MCV (RBC) [Entitic vol] 87.0 fL Normal 82.0-98.0 [facility] Comment on above: Performed By: #### 5 3 #### [facility] [address] [place] [address], [facility] Monocytes (Bld) [#/Vol] 1.1 10*3/uL High 0.1-1.0 [facility] Comment on above: Performed By: #### 102 #### [facility] [address] [place] [address], [facility] MONOS 13.2 % High 5.0-12.0 [facility] Comment on above: Performed By: #### 102 #### [facility] [address] [place] [address], [facility] Neutrophils/100 WBC (Bld) 57.1 % Normal 40.0-72.0 [facility] Comment on above: Performed By: #### 5 0103 #### [facility] [address] [facility] [place] [address], [facility] Nucleated RBC/100 WBC (Bld) [Ratio] 0 % Normal 0-0 [facility] Comment on above: Performed By: #### 5 0103 #### [facility] [address] [place] [address], [facility] PLAT CNT 205 10*3/uL Normal 150-400 [facility] Comment on above: Performed By: #### 5 0103 #### [facility] [address] [place] [address], [facility] RBC (Bld) [#/Vol] 4.55 10*6/uL Normal 3.80-5.00 [facility] Comment on above: Performed By: #### 5 0103 #### [facility] [address] [place] [address], [facility] WBC (Bld) [#/Vol] 7.93 10*3/uL Normal 4.00-10.60 [facility] Comment on above: Performed By: #### 5 0103 #### [facility] [address] COMP METABOLIC PANELon 09-28 Albumin [Mass/Vol] 3.8 g/dL Normal 3.5-5.7 [facility] Comment on above: Performed By: #### 4 6413, 70516, 94362, 97722, 25847, 53026 ####[facility] ALKALINE PHOSPH 60 IU/L Normal 34-[address] [facility] Comment on above: Performed By: #### 4 6413, 16035, 21591, 14788, 85427, 64706 ####[facility] [place] [address], [place] ALT [Catalytic activity/Vol] 15 U/L Normal 7-52 [facility] Comment on above: Performed By: #### 4 6413, 90464, 11858, 57391, 47226, 96057 ####[facility] [place] [address], [place] AST [Catalytic activity/Vol] 15 U/L Normal 13-39 [facility] Comment on above: Performed By: #### 4 6413, 28058, 39043, 36141, 15190, 53872 ####[facility] [place] [address], [place] Bilirubin [Mass/Vol] 0.6 mg/dL Normal 0.3-1.0 [facility] Comment on above: Performed By: #### 4 6413, 35159, 49104, 12881, 22971, 87748 ####[facility] [place] [address], [place] Calcium [Mass/Vol] 9.5 mg/dL Normal 8.6-10.3 [facility] Comment on above: Performed By: #### 4 6413, 42045, 91914, 85112, 09281, 79711 ####[facility] [place] [address], [place] Chloride [Moles/Vol] 107 mmol/L Normal 98-107 [facility] Comment on above: Performed By: #### 4 6413, 11024, 03767, 90672, 18414, 32923 ####[facility] [place] [address], [place] CO2 [Moles/Vol] 24 mmol/L Normal 21-[address] [facility] Comment on above: Performed By: #### 4 6413, 80738, 77587, 04671, 45076, 72141 ####[facility] [place] [address], [facility] Creatinine [Mass/Vol] 2.44 mg/dL High 0.60-1.20 [facility] Comment on above: Performed By: #### 4 6413, 06520, 62463, 91303, 76126, 38982 ####[facility] [place] [address], [facility] EGFR 22 ml/min/1.73sq m Abnormal >60 [facility] Comment on above: Result Comment: [facility]'s estimated glomerular filtration rate (eGFR) will no longer include consideration of race in its calculation. The National Kidney Foundation's eGFR Task Force developed new recommendations for the estimation of the glomerular filtration rate in the [place] They recommend immediate implementation of the new equation refit without the race variable in all laboratories because the calculation does not include race. In addition to not including race in the calculation and reporting, it included diversity in its development, and has acceptable performance characteristics and potential consequences that do not disproportionately affect any one group of individuals. Performed By: #### 4 6413, 54711, 54759, 30776, 85317, 43501 ####[facility] [place] [address], [facility] Glucose [Mass/Vol] 118 mg/dL High 70-100 [facility] Comment on above: Performed By: #### 4 6413, 14870, 19829, 91773, 15337, 09622 ####[facility] [place] [address], [facility] Potassium [Moles/Vol] 3.6 mmol/L Normal 3.5-5.1 [facility] Comment on above: Performed By: #### 4 6413, 02754, 30298, 97592, 88070, 07759 ####[facility] Protein [Mass/Vol] 6.4 g/dL Normal 6.0-8.3 [facility] Comment on above: Performed By: #### 4 6413, 26797, 07230, 50382, 25268, 49967 ####[facility] Sodium [Moles/Vol] 140 mmol/L Normal 136-145 [facility] Comment on above: Performed By: #### 4 6413, 44771, 40536, 44972, 79540, 62595 ####[facility] Urea nitrogen [Mass/Vol] 43 mg/dL High 7-25 [facility] Comment on above: Performed By: #### 4 6413, 86741, 38737, 98129, 68785, 57253 ####[facility] DIRECT BILIon 09-28-2021 Bilirubin.direct [Mass/Vol] 0.1 mg/dL Normal 0.0-0.2 [facility] Comment on above: Performed By: #### 4 6413, 04110, 75515, 90022, 02618, 64939 ####[facility] EVEROLIMUS 02879zh 2 EVEROLIMUS 4.1 ng/mL Normal [facility] Comment on above: Result Comment: Ther apeutic Range: Kidney transplant (in combination with Cyclosporine): 3-8 ng/mL Liver transplant (in combination with Tacrolimus): 3-8 ng/mL Toxic value: Greater than 15 ng/mL Everolimus marketed as Zortress is FDA approved for prophylaxis of organ rejection in adult patients receiving a kidney and liver transplant. Everolimus marketed as Afinitor is FDA approved for the treatment of renal cell carcinoma and for the treatment of subependymal giant cell astrocytoma (SEGA) associated with tuberous sclerosis (TS) in patients who are not candidates for curative surgical resection. The suggested therapeutic range for treatment of SEGA is 5-15 ng/mL, which is based on a predose (trough) specimen. The optimal therapeutic range for a given patient may differ from this suggested range based on the indication for therapy, treatment phase (initiation or maintenance), use in combination with other drugs, time of specimen collection relative to prior dose, type of transplanted organ, and/or the therapeutic approach of the transplant center. This test was developed and its performance characteristics determined by [facility]. It has not been cleared or approved by the US Food and Drug Administration. This test was performed in a CLIA certified laboratory and is intended for clinical purposes. Performed By: [facility] [address] [place] [id number] [employer] Referee: Young Lopez MD, PhD HEMOGLOBIN A1Con 09-28-2021 Glucose [Moles/Vol] 203 mmol/L Normal [facility] Comment on above: Performed By: #### 3 1752 #### [facility] [address] HbA1c (Bld) [Mass fraction] 8.7 % High 4.0-6.0 [facility] Comment on above: Performed By: #### 3 1752 #### [facility] [address] LIPID PROFILEon 09-28-2021 Cholesterol [Mass/Vol] 193 mg/dL Normal 120-200 [facility] Comment on above: Result Comment: CHOL ESTEROL REFERENCE RANGE: 20 YEARS AND OLDER CARDIOVASCULAR RISK Less than 200 mg/dl Low Risk 200 to 239 mg/dl Borderline Risk 240 mg/dl and greater High Risk Performed By: #### 4 6413, 90187, 89569, 98128, 75137, 86159 ####[facility] Cholesterol in HDL [Mass/Vol] 42 mg/dL Normal 23-92 [facility] Comment on above: Result Comment: Slig ht variation in normal range could be due to gender and/or age. HDL CHOLESTEROL REFERENCE RANGE: 20 years and older Cardiovascular Risk > or =60 mg/dL Desirable 40 TO 59 mg/dL Low Risk <40 mg/dL High Risk Performed By: #### 4 6413, 88499, 06712, 79187, 14803, 17992 ####[facility] [place] [address], [facility] Cholesterol in LDL [Mass/Vol] 113 mg/dL Normal 0-130 [facility] Comment on above: Result Comment: LDL IS A CALCULATION LDL IS ONLY VALID IF THE TRIG IS LESS THAN 400. Performed By: #### 4 6413, 76284, 63213, 76635, 72511, 48553 ####[facility] [place] [address], [facility] Cholesterol.total/Cho lesterol in HDL [Mass ratio] 4.6 {ratio} High .0-4.5 [facility] Comment on above: Performed By: #### 4 6413, 22079, 46267, 63848, 23920, 59727 ####[facility] [place] [address], [place] NON-HDL CHOLESTEROL 151 mg/dL Normal [facility] Comment on above: Performed By: #### 4 6413, 13250, 75225, 42861, 85482, 66374 ####[facility] [place] [address], [place] Triglyceride [Mass/Vol] 191 mg/dL High 40-149 [facility] Comment on above: Result Comment: TRIG LYCERIDE REFERENCE RANGE: 20 YEARS AND OLDER CARDIOVASCULAR RISK LESS THAN 150 mg/dl LOW RISK 150 TO 199 mg/dl BORDERLINE RISK 200 mg/dl AND GREATER HIGH RISK Performed By: #### 4 6413, 72802, 35046, 77205, 61040, 39161 ####[facility] [place] [address], [place] VLDL CHOL 38 mg/dL Normal 0-40 [facility] Comment on above: Performed By: #### 4 6413, 39509, 75807, 22361, 00785, 47164 ####[facility] [facility] [place] [address], [facility] MAGNESIUM BLOODon 09-28-2021 Magnesium [Mass/Vol] 1.9 mg/dL Normal 1.9-2.7 [facility] Comment on above: Performed By: #### 4 6413, 55658, 16306, 64191, 06077, 10947 ####[facility] [facility] [address], [facility] PHOSPHORUS BLOODon Phosphate [Mass/Vol] 2.9 mg/dL Normal 2.5-5.0 [facility] Comment on above: Performed By: #### 4 6413, 61500, 05081, 88028, 09677, 87219 ####[facility] [facility].[address] PROSPERAon 09-28-2021 PROSPERA KIT Results to be mailed directly to physician's office by reference lab. Normal [facility] Comment on above: Result Comment: Test performed by [email or web address] [place] [address] No result expected. For billing and tracking purposes only. Specimen collected for transplant patient and sent to requesting hospital per Dr instructions. No charge. Performed By: #### 3 1752 #### [facility] [address] [facility]. [address] RESULT Results to be mailed directly to physician's office by reference lab. Normal [facility] Comment on above: Performed By: #### 3 1752 #### [facility] [address] [facility] [place] [address], [facility] TACROLIMUSon 09-28-2021 Tacrolimus (Bld) [Mass/Vol] 3.1 ng/mL Low 5.0-20.0 [facility] Comment on above: Result Comment: The [employer] Tacrolimus assay is a delayed one-step immunoassay for the quantitative determination of tacrolimus in human whole blood using the chemiluminescent microparticle immunoassay (CMIA) technology with flexible assay protocols, referred to as Chemiflex. Performed By: #### 3 1752 #### [facility] [address] URIC ACID BLOODon 09-28-2021 Urate [Mass/Vol] 2.6 mg/dL Normal 2.3-6.6 The [facility] Comment on above: Performed By: #### 4 6413, [id number], [id number], 71813, 42636, 66098 ####[facility] [place] [address], [facility] Urinalysis - AUTOMATEDon Appearance (U) cloudy [employer] Other Bilirubin Ql (U) Negative [employer] Other Color (U) yellow [employer] Other Glucose Ql (U) Negative [employer] Other Hemoglobin Ql (U) moderate [employer] Other Ketones Ql (U) Negative [employer] Other Leukocyte esterase Test strip Ql (U) small [employer] Other Nitrite Ql (U) Negative [employer] Other pH (U) 5.5 [pH] [employer] Other Protein Ql (U) 100 [employer] Other Specific gravity (U) [Rel density] 1.010 [employer] Other Urobilinogen (U) [Mass/Vol] 0.2 mg/dL [employer] Other Urinalysis - AUTOMATED [employer] Other Urine Cultureon 09-09-2021 Bacteria identified Cx Nom (U) Reason for Exam Dysuria Urine ORGANISM: Escherichia coli (O:ESCCOL) Othello Count 75,000 Aerobic AIMEE Charge (NUC86) ---- SUSCEPTIBILITY --- ORGANISM: O:ESCCOL ANTIBIOTIC INTERPRETATION AIMEE Amikacin S <16 Ampicillin S <8 Ampicillin/Sulbactam S <8/4 Aztreonam S <4 Cefazolin S <2 Cefepime S <2 Ceftazidime S <1 Ceftazidime/Avibactam S <8 Ceftriaxone S <1 Ciprofloxacin S <1 Ertapenem S <0.5 Gentamicin S <4 Levofloxacin S <2 Meropenem S <1 Nitrofurantoin S <32 Piperacillin/Tazobact am S <16 Tetracycline S <4 Tigecycline S <2 Tobramycin S <4 Trimethoprim/Sulfamet hoxazole S <2/38 S = SUSCEPTIBLE I = INTERMEDIATE R = RESISTANT BLANK = DATA NOT AVAILABLE, OR DRUG NOT ADVISABLE OR TESTED R* = RESISTANCE DUE TO EXTENDED SPECTRUM BETA-LACTAMASES ESBL = EXTENDED SPECTRUM BETA-LACTAMASE TFG = THYMIDINE-DEPENDENT STRAIN CANDY = BETA-LACTAMASE POSITIVE IB = INDUCIBLE BETA-LACTAMASE. APPEARS IN PLACE OF 'S' WITH SPECIES KNOWN TO POSSESS INDUCIBLE BETA-LACTAMASES. POTENTIALLY THEY MAY BECOME RESISTANT TO ALL B-LACTAM DRUGS. PERFORMED BY: [place] [address] PATHOLOGIST LAW LIBRARIAN JEFE WHEAT M.D. [facility] Comment on above: Performed By: #### C UU #### [address] Urine Culture 75,000 [employer] Other Urine Culture <16 Susceptible [employer] Other Urine Culture <8 Susceptible [employer] Other Urine Culture <4 Susceptible [employer] Other Urine Culture <2 Susceptible [employer] Other Urine Culture <1 Susceptible [employer] Other Urine Culture <0.5 Susceptible [employer] Other Urine Culture <32 Susceptible [employer] Other Urine Culture <2/38 Susceptible [employer] Other CBC W/DIFFon 08-21-2021 ABS IMM GRANS 0.0 10*3/uL Normal 0.0-0.2 The [facility] Comment on above: Performed By: #### 5 0103 #### [facility] [address] ABS NEUTROPHILS 5.8 10*3/uL Normal 1.6-7.6 The [facility] Comment on above: Performed By: #### 5 0103 #### [facility] [address] Basophils (Bld) [#/Vol] 0.1 10*3/uL Normal 0.0-0.2 [facility] Comment on above: Performed By: #### 5 0103 #### [facility] [address] Basophils/100 WBC (Bld) 0.5 % Normal 0.0-1.0 [facility] Comment on above: Performed By: #### 5 0103 #### [facility] [address] [place] [address], [facility] Eosinophils (Bld) [#/Vol] 0.2 10*3/uL Normal 0.0-0.5 [facility] Comment on above: Performed By: #### 5 0103 #### [facility] [address] [place] [address], [facility] Eosinophils/100 WBC (Bld) 1.6 % Normal 0.0-6.0 [facility] Comment on above: Performed By: #### 5 0103 #### [facility] [address] [facility]. [address] Erythrocyte distribution width (RBC) [Ratio] 13.0 % Normal 11.5-15.0 [facility] Comment on above: Performed By: #### 102 #### [facility] [address] [facility] [place] [address], [facility] Hematocrit (Bld) [Volume fraction] 41.6 % Normal 36.0-45.0 [facility] Comment on above: Performed By: #### 102 #### [facility] [address] Hemoglobin (Bld) [Mass/Vol] 13.5 g/dL Normal 12.0-15.0 [facility] Comment on above: Performed By: #### 102 #### [facility] [address] IMMATURE GRANS 0.3 % Normal 0.0-1.0 The [facility] Comment on above: Performed By: #### 102 #### [facility] [address] Lymphocytes (Bld) [#/Vol] 2.1 10*3/uL Normal 1.2-4.0 [facility] Comment on above: Performed By: #### 3 #### [facility] [address] [facility]. [address] Lymphocytes/100 WBC (Bld) 22.8 % Normal 20.0-45.0 [facility] Comment on above: Performed By: #### 3 #### [facility] [address] [place] [address], [facility] MCH (RBC) [Entitic mass] 28.5 pg Normal 27.0-33.0 [facility] Comment on above: Performed By: #### 5 0103 #### [facility] [address] [place] [address], [facility] MCHC (RBC) [Mass/Vol] 32.5 g/dL Normal 32.0-35.0 [facility] Comment on above: Performed By: #### 102 #### [facility] [address] [facility] [place] [address], [facility] MCV (RBC) [Entitic vol] 87.9 fL Normal 82.0-98.0 [facility] Comment on above: Performed By: #### 102 #### [facility] [address] [place] [address], [facility] Monocytes (Bld) [#/Vol] 1.2 10*3/uL High 0.1-1.0 [facility] Comment on above: Performed By: #### 102 #### [facility] [address] [facility]. [address] MONOS 12.5 % High 5.0-12.0 [facility] Comment on above: Performed By: #### 102 #### [facility] [address] [facility] [address], [facility] Neutrophils/100 WBC (Bld) 62.3 % Normal 40.0-72.0 [facility] Comment on above: Performed By: #### 3 #### [facility] [address] [place] [address], [facility] Nucleated RBC/100 WBC (Bld) [Ratio] 0 % Normal 0-0 [facility] Comment on above: Performed By: #### 3 #### [facility] [address] [facility] [place] [place] [address], [facility] PLAT CNT 183 10*3/uL Normal 150-400 The [facility] Comment on above: Performed By: #### 102 #### [facility] [address] [place] [address], [facility] RBC (Bld) [#/Vol] 4.73 10*6/uL Normal 3.80-5.00 [facility] Comment on above: Performed By: #### 5 0103 #### [facility] [address] [place] [id number], [facility] WBC (Bld) [#/Vol] 9.31 10*3/uL Normal 4.00-10.60 The [facility] Comment on above: Performed By: #### 5 0103 #### [facility] [address] [facility] [place] [address], [facility] COMP METABOLIC PANELon 08-21 Albumin [Mass/Vol] 3.9 g/dL Normal 3.5-5.7 [facility] Comment on above: Performed By: #### 5 0103 #### [facility] [address] [facility] [place] [address], [facility] ALKALINE PHOSPH 52 IU/L Normal 34-104 [facility] Comment on above: Performed By: #### 5 0103 #### [facility] [address] [facility] [place] [address], [facility] ALT [Catalytic activity/Vol] 19 U/L Normal 7-52 [facility] Comment on above: Performed By: #### 5 0103 #### [facility] [address] [facility] [place] [address], [facility] AST [Catalytic activity/Vol] 20 U/L Normal 13-39 [facility] Comment on above: Performed By: #### 5 0103 #### [facility] [address] [facility] [place] [id number], [facility] Bilirubin [Mass/Vol] 0.7 mg/dL Normal 0.3-1.0 [facility] Comment on above: Performed By: #### 5 3 #### [facility] [address] [place] [address], [place] Calcium [Mass/Vol] 9.6 mg/dL Normal 8.6-10.3 The [facility] Comment on above: Performed By: #### 5 0103 #### [facility] [address] [place] [address], [place] Chloride [Moles/Vol] 105 mmol/L Normal 98-107 [facility] Comment on above: Performed By: #### 5 0103 #### [facility] [address] [place] [address], [place] CO2 [Moles/Vol] 26 mmol/L Normal 21-[address] [facility] Comment on above: Performed By: #### 5 0103 #### [facility] [address] [place] [address], [place] Creatinine [Mass/Vol] 2.04 mg/dL High 0.60-1.20 [facility] Comment on above: Performed By: #### 5 0103 #### [facility] [address] [place] [address], [place] eGFR- 30 ml/min/1.73sq m Abnormal >60 The [facility] Comment on above: Performed By: #### 5 0103 #### [facility] [address] [place] [address], [place] eGFR- non- 25 ml/min/1.73sq m Abnormal >60 The [facility] Comment on above: Performed By: #### 5 0103 #### [facility] [address] [place] [address], [place] Glucose [Mass/Vol] 156 mg/dL High 70-100 The [facility] Comment on above: Performed By: #### 5 0103 #### [facility] [address] [place] [address], [place] Potassium [Moles/Vol] 4.0 mmol/L Normal 3.5-5.1 [facility] Comment on above: Performed By: #### 5 0103 #### [facility] [address] Protein [Mass/Vol] 6.7 g/dL Normal 6.0-8.3 The [facility] Comment on above: Performed By: #### 5 0103 #### [facility] [address] [facility] [address] Sodium [Moles/Vol] 139 mmol/L Normal 136-145 The [facility] Comment on above: Performed By: #### 5 0103 #### [facility] [address] Urea nitrogen [Mass/Vol] 38 mg/dL High 7-25 [facility] Comment on above: Performed By: #### 5 0103 #### [facility] [address] DIRECT BILIon 08-21-2021 Bilirubin.direct [Mass/Vol] 0.1 mg/dL Normal 0.0-0.2 [facility] Comment on above: Performed By: #### 5 0103 #### [facility] [address] EVEROLIMUS [address]se 2 EVEROLIMUS 3.4 ng/mL Normal [facility] Comment on above: Result Comment: Ther apeutic Range: Kidney transplant (in combination with Cyclosporine): 3-8 ng/mL Liver transplant (in combination with Tacrolimus): 3-8 ng/mL Toxic value: Greater than 15 ng/mL Everolimus marketed as Zortress is FDA approved for prophylaxis of organ rejection in adult patients receiving a kidney and liver transplant. Everolimus marketed as Afinitor is FDA approved for the treatment of renal cell carcinoma and for the treatment of subependymal giant cell astrocytoma (SEGA) associated with tuberous sclerosis (TS) in patients who are not candidates for curative surgical resection. The suggested therapeutic range for treatment of SEGA is 5-15 ng/mL, which is based on a predose (trough) specimen. The optimal therapeutic range for a given patient may differ from this suggested range based on the indication for therapy, treatment phase (initiation or maintenance), use in combination with other drugs, time of specimen collection relative to prior dose, type of transplanted organ, and/or the therapeutic approach of the transplant center. This test was developed and its performance characteristics determined by [facility]. It has not been cleared or approved by the US Food and Drug Administration. This test was performed in a CLIA certified laboratory and is intended for clinical purposes. Performed By: [facility] [address] [place] [address] [employer] Referee: Young Lopez MD, PhD LIPID PROFILEon 08-21-2021 Cholesterol [Mass/Vol] 238 mg/dL High 120-200 [facility] Comment on above: Result Comment: CHOL ESTEROL REFERENCE RANGE: 20 YEARS AND OLDER CARDIOVASCULAR RISK Less than 200 mg/dl Low Risk 200 to 239 mg/dl Borderline Risk 240 mg/dl and greater High Risk Performed By: #### 5 0103 #### [facility] [address] [place] [address], [facility] Cholesterol in HDL [Mass/Vol] 56 mg/dL Normal 23-92 [facility] Comment on above: Result Comment: Slig ht variation in normal range could be due to gender and/or age. HDL CHOLESTEROL REFERENCE RANGE: 20 years and older Cardiovascular Risk > or =60 mg/dL Desirable 40 TO 59 mg/dL Low Risk <40 mg/dL High Risk Performed By: #### 5 0103 #### [facility] [address] [place] [address], [place] Cholesterol in LDL [Mass/Vol] 133 mg/dL High 0-130 [facility] Comment on above: Result Comment: LDL IS A CALCULATION LDL IS ONLY VALID IF THE TRIG IS LESS THAN 400. Performed By: #### 5 0103 #### [facility] [address] [place] [address], [place] Cholesterol.total/Cho lesterol in HDL [Mass ratio] 4.3 {ratio} Normal .0-4.5 [facility] Comment on above: Performed By: #### 5 0103 #### [facility] [address] [place] [address], [facility] NON-HDL CHOLESTEROL 182 mg/dL Normal [facility] Comment on above: Performed By: #### 5 0103 #### [facility] [address] [place] [address], [facility] Triglyceride [Mass/Vol] 243 mg/dL High 40-149 [facility] Comment on above: Result Comment: TRIG LYCERIDE REFERENCE RANGE: 20 YEARS AND OLDER CARDIOVASCULAR RISK LESS THAN 150 mg/dl LOW RISK 150 TO 199 mg/dl BORDERLINE RISK 200 mg/dl AND GREATER HIGH RISK Performed By: #### 5 0103 #### [facility] [address] [place] [address], [facility] VLDL CHOL 49 mg/dL High 0-40 [facility] Comment on above: Performed By: #### 5 0103 #### [facility] [address] [place] [address], [facility] MAGNESIUM BLOODon 08-21-2021 Magnesium [Mass/Vol] 2.0 mg/dL Normal 1.9-2.7 [facility] Comment on above: Performed By: #### 5 0103 #### [facility] [address] [place] [address], [facility] PHOSPHORUS BLOODon 2 Phosphate [Mass/Vol] 2.8 mg/dL Normal 2.5-5.0 [facility] Comment on above: Performed By: #### 5 0103 #### [facility] [address] [place] [address], [facility] PROSPERAon 08-21-2021 PROSPERA KIT Results to be mailed directly to physician's office by reference lab. Normal [facility] Comment on above: Result Comment: Test performed by [email or web address] [place] [id number] No result expected. For billing and tracking purposes only. Specimen collected for transplant patient and sent to requesting hospital per Dr instructions. No charge. Performed By: #### 3 1756 #### [facility] [address] RESULT Results to be mailed directly to physician's office by reference lab. Normal [facility] Comment on above: Performed By: #### 3 1756 #### [facility] [address] TACROLIMUSon 08-21-2021 Tacrolimus (Bld) [Mass/Vol] 3.5 ng/mL Low 5.0-20.0 [facility] Comment on above: Result Comment: The [employer] Tacrolimus assay is a delayed one-step immunoassay for the quantitative determination of tacrolimus in human whole blood using the chemiluminescent microparticle immunoassay (CMIA) technology with flexible assay protocols, referred to as Chemiflex. Performed By: #### 9 9914 ####[facility] URIC ACID BLOODon 08-21-2021 Urate [Mass/Vol] 2.9 mg/dL Normal 2.3-6.6 [facility] Comment on above: Performed By: #### 5 0103 #### [facility] [address] BK VIRUS QUANTITATION FOR PL ASMAon 07-03-2021 BKV Plasma Quantitation by PCR Not detected Normal The [facility] Comment on above: Result Comment: Meth od: BK virus was measured by quantitative polymerase chain reaction using a fluorescent hydrolysis probe targeting the polyomavirus BK CERTIFIED TRAVEL COUNSELOR-1 gene. The lower limit of quantitation of the assay is 500 copies of BK genome per milliliter of plasma or urine, and any detectable BK DNA below that level is reported as: Detected, <500 copies/ml. Serial BK virus measurement can be used to monitor disease activity. (Reference: George reyl. J CLIN MICRO 2004; 42:0288-0509). This test was developed and its performance characteristics determined by the [facility]. It has not been approved by the US Food and Drug Administration. However, such approval is not required for clinical implementation, and test results have been shown to be clinically useful. This laboratory is CAP accredited and CLIA certified to perform high complexity testing. Performed By: #### 5 0103 #### [facility] [address] BKV Plasma Quantitation Log by PCR Not detected Normal [facility] Comment on above: Performed By: #### 5 0103 #### [facility] [address] CBC W/DIFFon 07-03-2021 ABS IMM GRANS 0.1 10*3/uL Normal 0.0-0.2 The [facility] Comment on above: Performed By: #### 5 0103 #### [facility] [address] ABS NEUTROPHILS 4.9 10*3/uL Normal 1.6-7.6 The [facility] Comment on above: Performed By: #### 5 0103 #### [facility] [address] [place] [address], [facility] Basophils (Bld) [#/Vol] 0.1 10*3/uL Normal 0.0-0.2 [facility] Comment on above: Performed By: #### 5 0103 #### [facility] [address] [place] [address], [facility] Basophils/100 WBC (Bld) 0.6 % Normal 0.0-1.0 [facility] Comment on above: Performed By: #### 5 0103 #### [facility] [address] [place] [address], [facility] Eosinophils (Bld) [#/Vol] 0.2 10*3/uL Normal 0.0-0.5 [facility] Comment on above: Performed By: #### 5 0103 #### [facility] [address] [place] [address], [facility] Eosinophils/100 WBC (Bld) 1.9 % Normal 0.0-6.0 [facility] Comment on above: Performed By: #### 5 0103 #### [facility] [address] [facility] Erythrocyte distribution width (RBC) [Ratio] 13.2 % Normal 11.5-15.0 [facility] Comment on above: Performed By: #### 5 0103 #### [facility] [address] [facility] Hematocrit (Bld) [Volume fraction] 40.8 % Normal 36.0-45.0 [facility] Comment on above: Performed By: #### 5 3 #### [facility] [address] Hemoglobin (Bld) [Mass/Vol] 13.3 g/dL Normal 12.0-15.0 [facility] Comment on above: Performed By: #### 3 #### [facility] [address] IMMATURE GRANS 0.6 % Normal 0.0-1.0 The [facility] Comment on above: Performed By: #### 5 0103 #### [facility] [address] [place] [address], [facility] Lymphocytes (Bld) [#/Vol] 2.2 10*3/uL Normal 1.2-4.0 [facility] Comment on above: Performed By: #### 5 0103 #### [facility] [address] [place] [address], [facility] Lymphocytes/100 WBC (Bld) 26.5 % Normal 20.0-45.0 [facility] Comment on above: Performed By: #### 5 3 #### [facility] [address] [facility] MCH (RBC) [Entitic mass] 28.5 pg Normal 27.0-33.0 [facility] Comment on above: Performed By: #### 5 0103 #### [facility] [address] [facility] MCHC (RBC) [Mass/Vol] 32.6 g/dL Normal 32.0-35.0 [facility] Comment on above: Performed By: #### 5 0103 #### [facility] [address] MCV (RBC) [Entitic vol] 87.4 fL Normal 82.0-98.0 [facility] Comment on above: Performed By: #### 5 0103 #### [facility] [address] Monocytes (Bld) [#/Vol] 1.1 10*3/uL High 0.1-1.0 [facility] Comment on above: Performed By: #### 5 0103 #### [facility] [address] MONOS 12.4 % High 5.0-12.0 [facility] Comment on above: Performed By: #### 5 3 #### [facility] [address] Neutrophils/100 WBC (Bld) 58.0 % Normal 40.0-72.0 [facility] Comment on above: Performed By: #### 5 0103 #### [facility] [address] Nucleated RBC/100 WBC (Bld) [Ratio] 0 % Normal 0-0 [facility] Comment on above: Performed By: #### 5 3 #### [facility] [address] [facility] [place] [place] [address], [facility] PLAT CNT 186 10*3/uL Normal 150-400 [facility] [employer] [facility] Comment on above: Performed By: #### 5 0103 #### [facility] [address] [place] [address], [facility] RBC (Bld) [#/Vol] 4.67 10*6/uL Normal 3.80-5.00 [facility] Comment on above: Performed By: #### 5 0103 #### [facility] [address] [place] [id number], [facility] WBC (Bld) [#/Vol] 8.44 10*3/uL Normal 4.00-10.60 [facility] Comment on above: Performed By: #### 5 0103 #### [facility] [address] [place] [id number], [facility] COMP METABOLIC PANELon 07-03 Albumin [Mass/Vol] 4.0 g/dL Normal 3.5-5.7 [facility] Comment on above: Performed By: #### 1 0070, 17688, 65453, 34045, 27665, 12698 ####[facility] [place] [address], [facility] ALKALINE PHOSPH 56 IU/L Normal 34-[address] [facility] Comment on above: Performed By: #### 1 0070, 43911, 24961, 84203, 72044, 02770 ####[facility] [facility] ALT [Catalytic activity/Vol] 20 U/L Normal 7-52 [facility] Comment on above: Performed By: #### 1 0070, 10435, 11227, 33359, 48807, 08136 ####[facility] [place] [address], [facility] AST [Catalytic activity/Vol] 19 U/L Normal 13-39 [facility] Comment on above: Performed By: #### 1 0070, 78489, 15407, 61928, 82939, 72189 ####[facility] [place] [address], [place] Bilirubin [Mass/Vol] 0.7 mg/dL Normal 0.3-1.0 [facility] Comment on above: Performed By: #### 1 0070, 65562, 69979, 54062, 01315, 14548 ####[facility] [place] [address], [place] Calcium [Mass/Vol] 10.1 mg/dL Normal 8.6-10.3 [facility] Comment on above: Performed By: #### 1 0070, 85172, 77083, 18168, 65213, 49617 ####[facility] [place] [address], [place] Chloride [Moles/Vol] 107 mmol/L Normal 98-107 [facility] Comment on above: Performed By: #### 1 0070, 15812, 74720, 96692, 82684, 26101 ####[facility] [place] [address], [place] CO2 [Moles/Vol] 26 mmol/L Normal 21-31 [facility] Comment on above: Performed By: #### 1 0070, 63492, 91343, 32295, 19731, 03920 ####[facility] [place] [address], [place] Creatinine [Mass/Vol] 1.97 mg/dL High 0.60-1.20 [facility] Comment on above: Performed By: #### 1 0070, 27484, 48330, 83049, 88791, 05405 ####[facility] [place] [address], [place] eGFR- 31 ml/min/1.73sq m Abnormal >60 [facility] Comment on above: Performed By: #### 1 0070, 89324, 00253, 94756, 91418, 24442 ####[facility] [place] [address], [facility] eGFR- non- 26 ml/min/1.73sq m Abnormal >60 [facility] Comment on above: Performed By: #### 1 0070, 28133, 97985, 86954, 19763, 07699 ####[facility] [place] [address], [place] Glucose [Mass/Vol] 112 mg/dL High 70-100 [facility] Comment on above: Performed By: #### 1 0070, 48334, 76724, 66249, 43997, 71406 ####[facility] [place] [address], [place] Potassium [Moles/Vol] 3.6 mmol/L Normal 3.5-5.1 [facility] Comment on above: Performed By: #### 1 0070, 86424, 22293, 45605, 37447, 80425 ####[facility] [place] [address], [place] Protein [Mass/Vol] 6.5 g/dL Normal 6.0-8.3 [facility] Comment on above: Performed By: #### 1 0070, 16848, 33888, 06804, 66215, 65335 ####[facility] [place] [address], [place] Sodium [Moles/Vol] 142 mmol/L Normal 136-145 [facility] Comment on above: Performed By: #### 1 0070, 49743, 33630, 53715, 24293, 27839 ####[facility] [place] [address], [place] Urea nitrogen [Mass/Vol] 36 mg/dL High 7-25 [facility] Comment on above: Performed By: #### 1 0070, 61361, 76888, 50968, 34706, 99654 ####[facility] [place] [address], [facility] DIRECT BILIon 07-03-2021 Bilirubin.direct [Mass/Vol] 0.1 mg/dL Normal 0.0-0.2 [facility] Comment on above: Performed By: #### 1 0070, 70406, 00459, 79428, 83131, 05263 ####[facility] [place] [address], [facility] EVEROLIMUS [id number] 2 EVEROLIMUS 4.3 ng/mL Normal [facility] Comment on above: Result Comment: Ther apeutic Range: Kidney transplant (in combination with Cyclosporine): 3-8 ng/mL Liver transplant (in combination with Tacrolimus): 3-8 ng/mL Toxic value: Greater than 15 ng/mL Everolimus marketed as Zortress is FDA approved for prophylaxis of organ rejection in adult patients receiving a kidney and liver transplant. Everolimus marketed as Afinitor is FDA approved for the treatment of renal cell carcinoma and for the treatment of subependymal giant cell astrocytoma (SEGA) associated with tuberous sclerosis (TS) in patients who are not candidates for curative surgical resection. The suggested therapeutic range for treatment of SEGA is 5-15 ng/mL, which is based on a predose (trough) specimen. The optimal therapeutic range for a given patient may differ from this suggested range based on the indication for therapy, treatment phase (initiation or maintenance), use in combination with other drugs, time of specimen collection relative to prior dose, type of transplanted organ, and/or the therapeutic approach of the transplant center. This test was developed and its performance characteristics determined by [facility]. It has not been cleared or approved by the US Food and Drug Administration. This test was performed in a CLIA certified laboratory and is intended for clinical purposes. Performed By: [facility] [address] [place] [id number] [employer] Referee: Krystal Vázquez MD LIPID PROFILEon 05-11-2022 Cholesterol [Mass/Vol] 215 mg/dL High 120-200 [facility] Comment on above: Result Comment: CHOL ESTEROL REFERENCE RANGE: 20 YEARS AND OLDER CARDIOVASCULAR RISK Less than 200 mg/dl Low Risk 200 to 239 mg/dl Borderline Risk 240 mg/dl and greater High Risk Performed By: #### 5 0103 #### [facility] [address] [place] [address], [facility] Cholesterol in HDL [Mass/Vol] 57 mg/dL Normal 23-92 [facility] Comment on above: Result Comment: Slig ht variation in normal range could be due to gender and/or age. HDL CHOLESTEROL REFERENCE RANGE: 20 years and older Cardiovascular Risk > or =60 mg/dL Desirable 40 TO 59 mg/dL Low Risk <40 mg/dL High Risk Performed By: #### 5 0103 #### [facility] [address] [facility] [place] [address], [facility] Cholesterol in LDL [Mass/Vol] 115 mg/dL Normal 0-130 [facility] Comment on above: Result Comment: LDL IS A CALCULATION LDL IS ONLY VALID IF THE TRIG IS LESS THAN 400. Performed By: #### 5 0103 #### [facility] [address] [place] [address], [facility] Cholesterol.total/Cho lesterol in HDL [Mass ratio] 3.8 {ratio} Normal .0-4.5 [facility] Comment on above: Performed By: #### 5 0103 #### [facility] [address] [facility] [address], [facility] NON-HDL CHOLESTEROL 158 mg/dL Normal [facility] Comment on above: Performed By: #### 5 0103 #### [facility] [address] [facility] [place] [address], [facility] Triglyceride [Mass/Vol] 216 mg/dL High 40-149 [facility] Comment on above: Result Comment: TRIG LYCERIDE REFERENCE RANGE: 20 YEARS AND OLDER CARDIOVASCULAR RISK LESS THAN 150 mg/dl LOW RISK 150 TO 199 mg/dl BORDERLINE RISK 200 mg/dl AND GREATER HIGH RISK Performed By: #### 5 0103 #### [facility] [address] [place] [address], [facility] VLDL CHOL 43 mg/dL High 0-40 [facility] Comment on above: Performed By: #### 5 0103 #### [facility] [address] [place] [address], [facility] MAGNESIUM BLOODon 07-03-2021 Magnesium [Mass/Vol] 1.8 mg/dL Low 1.9-2.7 [facility] Comment on above: Performed By: #### 1 0070, 98437, 02401, 23632, 10731, 88847 ####[facility] [facility] [address], [facility] PHOSPHORUS BLOODon Phosphate [Mass/Vol] 2.9 mg/dL Normal 2.5-5.0 [facility] Comment on above: Performed By: #### 1 0070, 21238, 40826, 72655, 45182, 36424 ####[facility] [place] [address], [facility] PROSPERAon 07-03-2021 PROSPERA KIT Results to be mailed directly to physician's office by reference lab. Normal [facility] Comment on above: Result Comment: Test performed by [email or web address] [place] [address] No result expected. For billing and tracking purposes only. Specimen collected for transplant patient and sent to requesting hospital per Dr instructions. No charge. Performed By: #### 3 0126 #### [facility] [address] RESULT Results to be mailed directly to physician's office by reference lab. Normal [facility] Comment on above: Performed By: #### 3 1756 #### [facility] [address] [place] [address], [facility] TACROLIMUSon 07-03-2021 Tacrolimus (Bld) [Mass/Vol] 2.8 ng/mL Low 5.0-20.0 [facility] Comment on above: Result Comment: The [employer] Tacrolimus assay is a delayed one-step immunoassay for the quantitative determination of tacrolimus in human whole blood using the chemiluminescent microparticle immunoassay (CMIA) technology with flexible assay protocols, referred to as Chemiflex. Performed By: #### 5 0103 #### [facility] [address] [place] [address], [facility] TESTOSTERONE, BIO+FREE+SHBG+ TOTAL ILon 07-03-2021 IL Normal [facility] Comment on above: Result Comment: Test Performed by [employer] [place] [address] [place], [place] [id number] - Released 07/03/2021 11:07 SEX HORM BIND GLOB 39 nmol/L Normal 30-135 [facility] Testosterone [Mass/Vol] 25 ng/dL Normal 20-70 [facility] TESTOSTERONE, BIO 9.5 ng/dL High 1.5-9.4 The [facility] Comment on above: Result Comment: Post -menopausal range: 1.5-9.4 The concentration of bioavailable testosterone is derived from a mathematical expression based on the constant for the binding of testosterone to albumin and/or sex hormone binding globulin. TESTOSTERONE, FREE 4.0 pg/mL High 0.6-3.8 [facility] Comment on above: Result Comment: Post -menopausal range: 0.6-3.8 The concentration of free testosterone is derived from a mathematical expression based on the constant for the binding of testosterone to albumin and/or sex hormone binding globulin. URIC ACID BLOODon 07-03-2021 Urate [Mass/Vol] 2.8 mg/dL Normal 2.3-6.6 The [facility] Comment on above: Performed By: #### 1 0070, 19519, 98477, 58077, 31614, 81357 ####[facility] [place] [address], [facility] CBC W/DIFFon 05-23-2021 ABS IMM GRANS 0.1 10*3/uL Normal 0.0-0.2 The [facility] Comment on above: Performed By: #### 5 0103 #### [facility] [address] [facility] [place] [address], [facility] ABS NEUTROPHILS 7.2 10*3/uL Normal 1.6-7.6 The [facility] Comment on above: Performed By: #### 5 0103 #### [facility] [address] [facility] [place] [address], [facility] Basophils (Bld) [#/Vol] 0.0 10*3/uL Normal 0.0-0.2 [facility] Comment on above: Performed By: #### 5 0103 #### [facility] [address] [facility] [place] [address], [facility] Basophils/100 WBC (Bld) 0.3 % Normal 0.0-1.0 [facility] Comment on above: Performed By: #### 5 0103 #### [facility] [address] [place] [address], [facility] Eosinophils (Bld) [#/Vol] 0.1 10*3/uL Normal 0.0-0.5 [facility] Comment on above: Performed By: #### 5 0103 #### [facility] [address] [facility] [place] [address], [facility] Eosinophils/100 WBC (Bld) 1.3 % Normal 0.0-6.0 [facility] Comment on above: Performed By: #### 5 0103 #### [facility] [address] [place] [address], [facility] Erythrocyte distribution width (RBC) [Ratio] 12.8 % Normal 11.5-15.0 [facility] Comment on above: Performed By: #### 5 0103 #### [facility] [address] [facility] [place] [address], [facility] Hematocrit (Bld) [Volume fraction] 39.6 % Normal 36.0-45.0 [facility] Comment on above: Performed By: #### 5 0103 #### [facility] [address] [facility] [place] [address], [facility] Hemoglobin (Bld) [Mass/Vol] 13.2 g/dL Normal 12.0-15.0 [facility] Comment on above: Performed By: #### 5 0103 #### [facility] [address] [place] [address], [facility] IMMATURE GRANS 0.9 % Normal 0.0-1.0 The [facility] Comment on above: Performed By: #### 5 0103 #### [facility] [address] [facility] Lymphocytes (Bld) [#/Vol] 1.9 10*3/uL Normal 1.2-4.0 [facility] Comment on above: Performed By: #### 5 0103 #### [facility] [address] [place] [address], [facility] Lymphocytes/100 WBC (Bld) 17.5 % Low 20.0-45.0 [facility] Comment on above: Performed By: #### 5 0103 #### [facility] [address] [facility] MCH (RBC) [Entitic mass] 27.9 pg Normal 27.0-33.0 [facility] Comment on above: Performed By: #### 5 0103 #### [facility] [address] [facility] [place] [address], [facility] MCHC (RBC) [Mass/Vol] 33.3 g/dL Normal 32.0-35.0 [facility] Comment on above: Performed By: #### 5 3 #### [facility] [address] [facility] [place] [address], [facility] MCV (RBC) [Entitic vol] 83.7 fL Normal 82.0-98.0 [facility] Comment on above: Performed By: #### 5 0103 #### [facility] [address] [place] [address], [facility] Monocytes (Bld) [#/Vol] 1.2 10*3/uL High 0.1-1.0 [facility] Comment on above: Performed By: #### 5 0103 #### [facility] [address] [place] [address], [facility] MONOS 11.5 % Normal 5.0-12.0 [facility] Comment on above: Performed By: #### 5 0103 #### [facility] [address] [place] [address], [facility] Neutrophils/100 WBC (Bld) 68.5 % Normal 40.0-72.0 [facility] Comment on above: Performed By: #### 5 3 #### [facility] [address] [facility] [place] [address], [facility] Nucleated RBC/100 WBC (Bld) [Ratio] 0 % Normal 0-0 [facility] Comment on above: Performed By: #### 5 3 #### [facility] [address] [place] [address], [facility] PLAT CNT 237 10*3/uL Normal 150-400 [facility] Comment on above: Performed By: #### 5 3 #### [facility] [address] [place] [address], [facility] RBC (Bld) [#/Vol] 4.73 10*6/uL Normal 3.80-5.00 [facility] Comment on above: Performed By: #### 102 #### [facility] [address] [place] [address], [facility] WBC (Bld) [#/Vol] 10.56 10*3/uL Normal 4.00-10.60 [facility] Comment on above: Performed By: #### 5 0103 #### [facility] [address] [place] [address], [facility] COMP METABOLIC PANELon 05-23 Albumin [Mass/Vol] 3.7 g/dL Normal 3.5-5.7 [facility] Comment on above: Performed By: #### 1 0070, 53223, 44546, 12099, 24829, 05663 ####[facility] [place] [address], [facility] ALKALINE PHOSPH 55 IU/L Normal 34-[address] [facility] Comment on above: Performed By: #### 1 0070, 38203, 65147, 06371, 32787, 69778 ####[facility] [place] [address], [facility] ALT [Catalytic activity/Vol] 19 U/L Normal 7-52 [facility] Comment on above: Performed By: #### 1 0070, 51399, 58274, 48828, 06233, 46904 ####[facility] [place] [address], [facility] AST [Catalytic activity/Vol] 19 U/L Normal 13-39 [facility] Comment on above: Performed By: #### 1 0070, 09880, 40073, 32284, 84926, 02366 ####[facility] [place] [address], [place] Bilirubin [Mass/Vol] 0.7 mg/dL Normal 0.3-1.0 [facility] Comment on above: Performed By: #### 1 0070, 02879, 50357, 94893, 48834, 16202 ####[facility] [place] [address], [place] Calcium [Mass/Vol] 9.8 mg/dL Normal 8.6-10.3 [facility] Comment on above: Performed By: #### 1 0070, 99182, 67169, 38842, 31296, 70816 ####[facility] [place] [address], [facility] Chloride [Moles/Vol] 103 mmol/L Normal 98-107 [facility] Comment on above: Performed By: #### 1 0070, 97086, 04719, 45979, 54496, 50667 ####[facility] [place] [address], [place] CO2 [Moles/Vol] 26 mmol/L Normal 21-31 [facility] Comment on above: Performed By: #### 1 0070, 84601, 47535, 58071, 95954, 02300 ####[facility] [place] [address], [place] Creatinine [Mass/Vol] 2.12 mg/dL High 0.60-1.20 [facility] Comment on above: Performed By: #### 1 0070, 43570, 02411, 24805, 58332, 43046 ####[facility] [place] [address], [facility] eGFR- 29 ml/min/1.73sq m Abnormal >60 [facility] Comment on above: Performed By: #### 1 0070, 86077, 06547, 55545, 86185, 51060 ####[facility] [place] [address], [place] eGFR- non- 24 ml/min/1.73sq m Abnormal >60 [facility] Comment on above: Performed By: #### 1 0070, 24342, 88277, 23101, 52196, 62725 ####[facility] [place] [address], [place] Glucose [Mass/Vol] 134 mg/dL High 70-100 [facility] Comment on above: Performed By: #### 1 0070, 99916, 75563, 71188, 20516, 28551 ####[facility] [place] [address], [facility] Potassium [Moles/Vol] 3.8 mmol/L Normal 3.5-5.1 [facility] Comment on above: Performed By: #### 1 0070, 66250, 21133, 90069, 13936, 21761 ####[facility] [place] [address], [facility] Protein [Mass/Vol] 6.3 g/dL Normal 6.0-8.3 [facility] Comment on above: Performed By: #### 1 0070, 51121, 28835, 61486, 19815, 19230 ####[facility] [place] [address], [facility] Sodium [Moles/Vol] 139 mmol/L Normal 136-145 [facility] Comment on above: Performed By: #### 1 0070, 62869, 52906, 34557, 48480, 43165 ####[facility] [place] [address], [facility] Urea nitrogen [Mass/Vol] 32 mg/dL High 7-25 [facility] Comment on above: Performed By: #### 1 0070, 53017, 81827, 12542, 43695, 72509 ####[facility] [place] [address], [facility] DIRECT BILIon 05-23-2021 Bilirubin.direct [Mass/Vol] 0.1 mg/dL Normal 0.0-0.2 [facility] Comment on above: Performed By: #### 1 0070, 41281, 52409, 96392, 02725, 68105 ####[facility] [place] [address], [facility] EVEROLIMUS [id number] 2 EVEROLIMUS 3.4 ng/mL Normal [facility] Comment on above: Result Comment: Ther apeutic Range: Kidney transplant (in combination with Cyclosporine): 3-8 ng/mL Liver transplant (in combination with Tacrolimus): 3-8 ng/mL Toxic value: Greater than 15 ng/mL Everolimus marketed as Zortress is FDA approved for prophylaxis of organ rejection in adult patients receiving a kidney and liver transplant. Everolimus marketed as Afinitor is FDA approved for the treatment of renal cell carcinoma and for the treatment of subependymal giant cell astrocytoma (SEGA) associated with tuberous sclerosis (TS) in patients who are not candidates for curative surgical resection. The suggested therapeutic range for treatment of SEGA is 5-15 ng/mL, which is based on a predose (trough) specimen. The optimal therapeutic range for a given patient may differ from this suggested range based on the indication for therapy, treatment phase (initiation or maintenance), use in combination with other drugs, time of specimen collection relative to prior dose, type of transplanted organ, and/or the therapeutic approach of the transplant center. This test was developed and its performance characteristics determined by [facility]. It has not been cleared or approved by the [place] Food and Drug Administration. This test was performed in a CLIA certified laboratory and is intended for clinical purposes. Performed By: [facility] [address] [place] [address] [employer] Referee: Krystal Vázquez MD LIPID PROFILEon 05-23-2021 Cholesterol [Mass/Vol] 179 mg/dL Normal 120-200 [facility] Comment on above: Result Comment: CHOL ESTEROL REFERENCE RANGE: 20 YEARS AND OLDER CARDIOVASCULAR RISK Less than 200 mg/dl Low Risk 200 to 239 mg/dl Borderline Risk 240 mg/dl and greater High Risk Performed By: #### 1 0070, 03668, 16761, 72983, 09777, 09470 ####[facility] [place] [address], [facility] Cholesterol in HDL [Mass/Vol] 45 mg/dL Normal 23-92 [facility] Comment on above: Result Comment: Slig ht variation in normal range could be due to gender and/or age. HDL CHOLESTEROL REFERENCE RANGE: 20 years and older Cardiovascular Risk > or =60 mg/dL Desirable 40 TO 59 mg/dL Low Risk <40 mg/dL High Risk Performed By: #### 1 0070, 47248, 32297, 71117, 38686, 67087 ####[facility] [place] [address], [facility] Cholesterol in LDL [Mass/Vol] 76 mg/dL Normal 0-130 [facility] Comment on above: Result Comment: LDL IS A CALCULATION LDL IS ONLY VALID IF THE TRIG IS LESS THAN 400. Performed By: #### 1 0070, 67072, 09444, 43988, 32110, 14214 ####[facility] [place] [address], [facility] Cholesterol.total/Cho lesterol in HDL [Mass ratio] 4.0 {ratio} Normal .0-4.5 [facility] Comment on above: Performed By: #### 1 0070, 80791, 05061, 09649, 15079, 81078 ####[facility] [place] [address], [facility] NON-HDL CHOLESTEROL 134 mg/dL Normal [facility] Comment on above: Performed By: #### 1 0070, 15816, 36783, 59945, 34524, 36968 ####[facility] [place] [address], [facility] Triglyceride [Mass/Vol] 290 mg/dL High 40-149 [facility] Comment on above: Result Comment: TRIG LYCERIDE REFERENCE RANGE: 20 YEARS AND OLDER CARDIOVASCULAR RISK LESS THAN 150 mg/dl LOW RISK 150 TO 199 mg/dl BORDERLINE RISK 200 mg/dl AND GREATER HIGH RISK Performed By: #### 1 0070, 86547, 61168, 78257, 43497, 79172 ####[facility] [place] [address], [place] VLDL CHOL 58 mg/dL High 0-40 [facility] Comment on above: Performed By: #### 1 0070, 98850, 35122, 14926, 86384, 08316 ####[facility] [place] [address], [facility] MAGNESIUM BLOODon 05-23-2021 Magnesium [Mass/Vol] 1.6 mg/dL Low 1.9-2.7 [facility] Comment on above: Performed By: #### 1 0070, 36870, 85278, 12618, 72206, 42767 ####[facility] [place] [address], [facility] PHOSPHORUS BLOODon Phosphate [Mass/Vol] 2.6 mg/dL Normal 2.5-5.0 [facility] Comment on above: Performed By: #### 1 0070, 59049, 49076, 59373, 63072, 50245 ####[facility] [facility] PROSPERAon 05-23-2021 PROSPERA KIT Results to be mailed directly to physician's office by reference lab. Normal [facility] Comment on above: Performed By: #### 5 0103 #### [facility] [address] [facility] RESULT Normal [facility] Comment on above: Result Comment: Resu lts to be mailed directly to physician's office by reference lab. Performed By: #### 5 0103 #### [facility] [address] [place] [address], [facility] TACROLIMUSon 05-23-2021 Tacrolimus (Bld) [Mass/Vol] 2.2 ng/mL Low 5.0-20.0 [facility] Comment on above: Result Comment: The [employer] Tacrolimus assay is a delayed one-step immunoassay for the quantitative determination of tacrolimus in human whole blood using the chemiluminescent microparticle immunoassay (CMIA) technology with flexible assay protocols, referred to as Chemiflex. Performed By: #### 9 9914 ####[facility] URIC ACID BLOODon 05-23-2021 Urate [Mass/Vol] 3.0 mg/dL Normal 2.3-6.6 The [facility] Comment on above: Performed By: #### 1 0070, 87518, 65369, 45140, 77298, 51819 ####[facility] Urinalysis - AUTOMATEDon Appearance (U) cloudy [employer] Other Bilirubin Ql (U) Negative [employer] Other Color (U) yellow [employer] Other Glucose Ql (U) Negative [employer] Other Hemoglobin Ql (U) small [employer] Other Ketones Ql (U) Negative [employer] Other Leukocyte esterase Test strip Ql (U) moderate [employer] Other Nitrite Ql (U) Positive [employer] Other pH (U) 7.0 [pH] [employer] Other Protein Ql (U) 100 [employer] Other Specific gravity (U) [Rel density] 1.015 [employer] Other Urobilinogen (U) [Mass/Vol] 0.2 mg/dL [employer] Other Urinalysis - AUTOMATED [employer] Other Urine Cultureon 05-23-2021 Bacteria identified Cx Nom (U) ORGANISM: Klebsiella oxytoca (O:KLEOXY) [place] Count >100,000 Aerobic AIMEE Charge (NUC86) ---- SUSCEPTIBILITY --- ORGANISM: O:KLEOXY ANTIBIOTIC INTERPRETATION AIMEE Amikacin S <16 Ampicillin R >16 Ampicillin/Sulbactam I 1616/8 Aztreonam S <4 Cefazolin R >16 Cefepime S <2 Ceftazidime S <1 Ceftazidime/Avibactam S <8 Ceftriaxone S <1 Ciprofloxacin S <1 Ertapenem S <0.5 Gentamicin S <4 Levofloxacin S <2 Meropenem S <1 Nitrofurantoin S <32 Piperacillin/Tazobact am S <16 Tetracycline S <4 Tigecycline S <2 Tobramycin S <4 Trimethoprim/Sulfamet hoxazole R > S = SUSCEPTIBLE I = INTERMEDIATE R = RESISTANT BLANK = DATA NOT AVAILABLE, OR DRUG NOT ADVISABLE OR TESTED R* = RESISTANCE DUE TO EXTENDED SPECTRUM BETA-LACTAMASES ESBL = EXTENDED SPECTRUM BETA-LACTAMASE TFG = THYMIDINE-DEPENDENT STRAIN CANDY = BETA-LACTAMASE POSITIVE IB = INDUCIBLE BETA-LACTAMASE. APPEARS IN PLACE OF 'S' WITH SPECIES KNOWN TO POSSESS INDUCIBLE BETA-LACTAMASES. POTENTIALLY THEY MAY BECOME RESISTANT TO ALL B-LACTAM DRUGS. PERFORMED BY: [place] [address] PATHOLOGIST LAW LIBRARIAN JEFE WHEAT M.D. Normal [facility] Comment on above: Performed By: #### C UU #### [address] BK VIRUS QUANTITATION FOR PL ASMAon 04-13-2021 BKV Plasma Quantitation by PCR Not detected Normal The [facility] Comment on above: Result Comment: Meth od: BK virus was measured by quantitative polymerase chain reaction using a fluorescent hydrolysis probe targeting the polyomavirus BK CERTIFIED TRAVEL COUNSELOR-1 gene. The lower limit of quantitation of the assay is 500 copies of BK genome per milliliter of plasma or urine, and any detectable BK DNA below that level is reported as: Detected, <500 copies/ml. Serial BK virus measurement can be used to monitor disease activity. (Reference: George reyl. J CLIN MICRO 2004; 42:5970-7936). This test was developed and its performance characteristics determined by the [facility]. It has not been approved by the US Food and Drug Administration. However, such approval is not required for clinical implementation, and test results have been shown to be clinically useful. This laboratory is CAP accredited and CLIA certified to perform high complexity testing. Performed By: #### 5 0103 #### [facility] [address] BKV Plasma Quantitation Log by PCR Not detected Normal [facility] Comment on above: Performed By: #### 5 0103 #### [facility] [address] CBC W/DIFFon 04-13-2021 ABS IMM GRANS 0.0 10*3/uL Normal 0.0-0.2 The [facility] Comment on above: Performed By: #### 5 0103 #### [facility] [address] ABS NEUTROPHILS 5.7 10*3/uL Normal 1.6-7.6 The [facility] Comment on above: Performed By: #### 5 0103 #### [facility] [address] Basophils (Bld) [#/Vol] 0.1 10*3/uL Normal 0.0-0.2 [facility] Comment on above: Performed By: #### 5 0103 #### [facility] [address] Basophils/100 WBC (Bld) 0.6 % Normal 0.0-1.0 [facility] Comment on above: Performed By: #### 5 0103 #### [facility] [address] Eosinophils (Bld) [#/Vol] 0.1 10*3/uL Normal 0.0-0.5 [facility] Comment on above: Performed By: #### 5 0103 #### [facility] [address] [place] [address], [facility] Eosinophils/100 WBC (Bld) 1.3 % Normal 0.0-6.0 [facility] Comment on above: Performed By: #### 5 0103 #### [facility] [address] [place] [address], [facility] Erythrocyte distribution width (RBC) [Ratio] 13.7 % Normal 11.5-15.0 [facility] Comment on above: Performed By: #### 5 0103 #### [facility] [address] [facility] [place] [address], [facility] Hematocrit (Bld) [Volume fraction] 42.8 % Normal 36.0-45.0 [facility] Comment on above: Performed By: #### 3 #### [facility] [address] [place] [address], [facility] Hemoglobin (Bld) [Mass/Vol] 13.5 g/dL Normal 12.0-15.0 [facility] Comment on above: Performed By: #### 5 0103 #### [facility] [address] [place] [id number], [facility] IMMATURE GRANS 0.4 % Normal 0.0-1.0 [facility] Comment on above: Performed By: #### 5 0103 #### [facility] [address] [place] [address], [facility] Lymphocytes (Bld) [#/Vol] 2.5 10*3/uL Normal 1.2-4.0 [facility] Comment on above: Performed By: #### 5 0103 #### [facility] [address] [place] [id number], [facility] Lymphocytes/100 WBC (Bld) 27.0 % Normal 20.0-45.0 [facility] Comment on above: Performed By: #### 5 3 #### [facility] [address] MCH (RBC) [Entitic mass] 27.6 pg Normal 27.0-33.0 [facility] Comment on above: Performed By: #### 3 #### [facility] [address] MCHC (RBC) [Mass/Vol] 31.5 g/dL Low 32.0-35.0 [facility] Comment on above: Performed By: #### 3 #### [facility] [address] MCV (RBC) [Entitic vol] 87.3 fL Normal 82.0-98.0 [facility] Comment on above: Performed By: #### 5 102 #### [facility] [address] Monocytes (Bld) [#/Vol] 0.8 10*3/uL Normal 0.1-1.0 [facility] Comment on above: Performed By: #### 5 102 #### [facility] [address] MONOS 9.0 % Normal 5.0-12.0 [facility] Comment on above: Performed By: #### 5 3 #### [facility] [address] Neutrophils/100 WBC (Bld) 61.7 % Normal 40.0-72.0 [facility] Comment on above: Performed By: #### 5 102 #### [facility] [address] Nucleated RBC/100 WBC (Bld) [Ratio] 0 % Normal 0-0 [facility] Comment on above: Performed By: #### 5 102 #### [facility] [address] [place] [address], [facility] PLAT CNT 183 10*3/uL Normal 150-400 The [facility] Comment on above: Performed By: #### 5 0103 #### [facility] [address] [facility] [place] [address], [facility] RBC (Bld) [#/Vol] 4.90 10*6/uL Normal 3.80-5.00 [facility] Comment on above: Performed By: #### 5 0103 #### [facility] [address] [facility] [place] [address], [facility] WBC (Bld) [#/Vol] 9.27 10*3/uL Normal 4.00-10.60 [facility] Comment on above: Performed By: #### 5 0103 #### [facility] [address] [facility] COMP METABOLIC PANELon 04-13 Albumin [Mass/Vol] 4.0 g/dL Normal 3.5-5.7 [facility] Comment on above: Performed By: #### 5 0103 #### [facility] [address] [place] [address], [facility] ALKALINE PHOSPH 52 IU/L Normal 34-[address] [facility] Comment on above: Performed By: #### 5 0103 #### [facility] [address] [facility] ALT [Catalytic activity/Vol] 19 U/L Normal 7-52 [facility] Comment on above: Performed By: #### 5 0103 #### [facility] [address] [place] [address], [facility] AST [Catalytic activity/Vol] 23 U/L Normal 13-39 [facility] Comment on above: Performed By: #### 5 3 #### [facility] [address] [place] [address], [place] Bilirubin [Mass/Vol] 0.6 mg/dL Normal 0.3-1.0 [facility] Comment on above: Performed By: #### 5 0103 #### [facility] [address] [place] [address], [place] Calcium [Mass/Vol] 9.7 mg/dL Normal 8.6-10.3 [facility] Comment on above: Performed By: #### 5 0103 #### [facility] [address] [place] [address], [place] Chloride [Moles/Vol] 104 mmol/L Normal 98-107 [facility] Comment on above: Performed By: #### 5 0103 #### [facility] [address] [place] [address], [place] CO2 [Moles/Vol] 27 mmol/L Normal 21-[address] [facility] Comment on above: Performed By: #### 5 0103 #### [facility] [address] [place] [address], [place] Creatinine [Mass/Vol] 1.77 mg/dL High 0.60-1.20 [facility] Comment on above: Performed By: #### 5 0103 #### [facility] [address] [place] [address], [place] eGFR- 36 ml/min/1.73sq m Abnormal >60 The [facility] Comment on above: Performed By: #### 5 0103 #### [facility] [address] [place] [address], [place] eGFR- non- 30 ml/min/1.73sq m Abnormal >60 The [facility] Comment on above: Performed By: #### 5 0103 #### [facility] [address] [place] [address], [place] Glucose [Mass/Vol] 121 mg/dL High 70-100 [facility] Comment on above: Performed By: #### 5 0103 #### [facility] [address] [place] [address], [facility] Potassium [Moles/Vol] 3.3 mmol/L Low 3.5-5.1 [facility] Comment on above: Performed By: #### 5 0103 #### [facility] [address] [place] [address], [facility] Protein [Mass/Vol] 6.6 g/dL Normal 6.0-8.3 [facility] Comment on above: Performed By: #### 5 0103 #### [facility] [address] [place] [address], [facility] Sodium [Moles/Vol] 139 mmol/L Normal 136-145 The [facility] Comment on above: Performed By: #### 5 0103 #### [facility] [address] [place] [address], [facility] Urea nitrogen [Mass/Vol] 34 mg/dL High 7-25 [facility] Comment on above: Performed By: #### 5 0103 #### [facility] [address] [facility] [place] [address], [facility] DIRECT BILIon 04-13-2021 Bilirubin.direct [Mass/Vol] 0.1 mg/dL Normal 0.0-0.2 [facility] Comment on above: Performed By: #### 5 0103 #### [facility] [address] [place] [address], [facility] EVEROLIMUS [id number] EVEROLIMUS 3.0 ng/mL Normal [facility] Comment on above: Result Comment: Ther apeutic Range: Kidney transplant (in combination with Cyclosporine): 3-8 ng/mL Liver transplant (in combination with Tacrolimus): 3-8 ng/mL Toxic value: Greater than 15 ng/mL Everolimus marketed as Zortress is FDA approved for prophylaxis of organ rejection in adult patients receiving a kidney and liver transplant. Everolimus marketed as Afinitor is FDA approved for the treatment of renal cell carcinoma and for the treatment of subependymal giant cell astrocytoma (SEGA) associated with tuberous sclerosis (TS) in patients who are not candidates for curative surgical resection. The suggested therapeutic range for treatment of SEGA is 5-15 ng/mL, which is based on a predose (trough) specimen. The optimal therapeutic range for a given patient may differ from this suggested range based on the indication for therapy, treatment phase (initiation or maintenance), use in combination with other drugs, time of specimen collection relative to prior dose, type of transplanted organ, and/or the therapeutic approach of the transplant center. This test was developed and its performance characteristics determined by [facility]. It has not been cleared or approved by the US Food and Drug Administration. This test was performed in a CLIA certified laboratory and is intended for clinical purposes. Performed By: [facility] [address] [place] [address] [employer] Referee: Krystal Vázquez MD HEMOGLOBIN A1Con 04-13-2021 Glucose [Moles/Vol] 243 mmol/L Normal [facility] Comment on above: Performed By: #### 9 9914, 08626 ####[facility] HbA1c (Bld) [Mass fraction] 10.1 % High 4.0-6.0 [facility] Comment on above: Performed By: #### 9 9914, 51865 ####[facility] LIPID PROFILEon 04-13-2021 Cholesterol [Mass/Vol] 204 mg/dL High 120-200 [facility] Comment on above: Result Comment: CHOL ESTEROL REFERENCE RANGE: 20 YEARS AND OLDER CARDIOVASCULAR RISK Less than 200 mg/dl Low Risk 200 to 239 mg/dl Borderline Risk 240 mg/dl and greater High Risk Performed By: #### 5 0103 #### [facility] [address] Cholesterol in HDL [Mass/Vol] 48 mg/dL Normal 23-92 [facility] Comment on above: Result Comment: Slig ht variation in normal range could be due to gender and/or age. HDL CHOLESTEROL REFERENCE RANGE: 20 years and older Cardiovascular Risk > or =60 mg/dL Desirable 40 TO 59 mg/dL Low Risk <40 mg/dL High Risk Performed By: #### 5 0103 #### [facility] [address] [place] [address], [facility] Cholesterol in LDL [Mass/Vol] 106 mg/dL Normal 0-130 [facility] Comment on above: Result Comment: LDL IS A CALCULATION LDL IS ONLY VALID IF THE TRIG IS LESS THAN 400. Performed By: #### 5 0103 #### [facility] [address] [place] [address], [facility] Cholesterol.total/Cho lesterol in HDL [Mass ratio] 4.3 {ratio} Normal .0-4.5 [facility] Comment on above: Performed By: #### 5 0103 #### [facility] [address] [place] [address], [facility] NON-HDL CHOLESTEROL 156 mg/dL Normal [facility] Comment on above: Performed By: #### 5 0103 #### [facility] [address] [place] [address], [facility] Triglyceride [Mass/Vol] 249 mg/dL High 40-149 [facility] Comment on above: Result Comment: TRIG LYCERIDE REFERENCE RANGE: 20 YEARS AND OLDER CARDIOVASCULAR RISK LESS THAN 150 mg/dl LOW RISK 150 TO 199 mg/dl BORDERLINE RISK 200 mg/dl AND GREATER HIGH RISK Performed By: #### 5 0103 #### [facility] [address] [place] [address], [facility] VLDL CHOL 50 mg/dL High 0-40 [facility] Comment on above: Performed By: #### 5 0103 #### [facility] [address] [place] [address], [place] MAGNESIUM BLOODon 02-19-2022 Magnesium [Mass/Vol] 1.9 mg/dL Normal 1.9-2.7 [facility] Comment on above: Performed By: #### 5 0103 #### [facility] [address] [facility] PHOSPHORUS BLOODon Phosphate [Mass/Vol] 3.2 mg/dL Normal 2.5-5.0 [facility] Comment on above: Performed By: #### 5 0103 #### [facility] [address] [facility] PROSPERAon 04-13-2021 PROSPERA KIT Results to be mailed directly to physician's office by reference lab. Normal [facility] Comment on above: Result Comment: Test performed by [email or web address] [place] [address] No result expected. For billing and tracking purposes only. Specimen collected for transplant patient and sent to [facility] per Dr instructions. No charge. Performed By: #### 3 1756 #### [facility] [address] RESULT Results to be mailed directly to physician's office by reference lab. Normal [facility] Comment on above: Performed By: #### 3 1756 #### [facility] [address] [facility]. [address] TACROLIMUSon 04-13-2021 Tacrolimus (Bld) [Mass/Vol] 3.7 ng/mL Low 5.0-20.0 [facility] Comment on above: Result Comment: The [employer] Tacrolimus assay is a delayed one-step immunoassay for the quantitative determination of tacrolimus in human whole blood using the chemiluminescent microparticle immunoassay (CMIA) technology with flexible assay protocols, referred to as Chemiflex. Performed By: #### 9 9914, 14342 ####[facility] [place] [address], [facility] URIC ACID BLOODon 04-13-2021 Urate [Mass/Vol] 2.7 mg/dL Normal 2.3-6.6 The [facility] Comment on above: Performed By: #### 5 0103 #### [facility] [address] [place] [address], [facility] COMP METABOLIC PANELon 03-01 Albumin [Mass/Vol] 3.9 g/dL Normal 3.5-5.7 [facility] Comment on above: Performed By: #### 1 0070, 07229, 04996, 02748, 73787, 49609 ####[facility] [place] [address], [facility] ALKALINE PHOSPH 59 IU/L Normal 34-[address] [facility] Comment on above: Performed By: #### 1 0070, 24913, 84862, 61269, 28679, 68221 ####[facility] [place] [address], [place] ALT [Catalytic activity/Vol] 21 U/L Normal 7-52 [facility] Comment on above: Performed By: #### 1 0070, 70048, 97341, 63236, 82951, 52042 ####[facility] [place] [address], [place] AST [Catalytic activity/Vol] 22 U/L Normal 13-39 [facility] Comment on above: Performed By: #### 1 0070, 47144, 24345, 32848, 87933, 05155 ####[facility] [place] [address], [place] Bilirubin [Mass/Vol] 0.8 mg/dL Normal 0.3-1.0 [facility] Comment on above: Performed By: #### 1 0070, 13461, 01713, 03497, 73830, 22132 ####[facility] [place] [address], [place] Calcium [Mass/Vol] 10.3 mg/dL Normal 8.6-10.3 [facility] Comment on above: Performed By: #### 1 0070, 02632, 91451, 63940, 36664, 47838 ####[facility] [place] [address], [facility] Chloride [Moles/Vol] 105 mmol/L Normal 98-107 [facility] Comment on above: Performed By: #### 1 0070, 91681, 56380, 12883, 01615, 30328 ####[facility] [place] [address], [place] CO2 [Moles/Vol] 26 mmol/L Normal 21-31 [facility] Comment on above: Performed By: #### 1 0070, 37265, 90907, 38732, 69295, 99699 ####[facility] [place] [address], [place] Creatinine [Mass/Vol] 1.95 mg/dL High 0.60-1.20 [facility] Comment on above: Performed By: #### 1 0070, 41318, 11805, 58706, 04567, 83810 ####[facility] [place] [address], [place] eGFR- 32 ml/min/1.73sq m Abnormal >60 [facility] Comment on above: Performed By: #### 1 0070, 47936, 51027, 52524, 66448, 55123 ####[facility] [place] [address], [place] eGFR- non- 26 ml/min/1.73sq m Abnormal >60 [facility] Comment on above: Performed By: #### 1 0070, 17127, 36843, 42272, 57655, 36052 ####[facility] [place] [address], [place] Glucose [Mass/Vol] 127 mg/dL High 70-100 [facility] Comment on above: Performed By: #### 1 0070, 89826, 99743, 79239, 51320, 38446 ####[facility] [place] [address], [facility] Potassium [Moles/Vol] 3.7 mmol/L Normal 3.5-5.1 [facility] Comment on above: Performed By: #### 1 0070, 24713, 83066, 03323, 60959, 37938 ####[facility] [place] [address], [facility] Protein [Mass/Vol] 6.6 g/dL Normal 6.0-8.3 [facility] Comment on above: Performed By: #### 1 0070, 51615, 54418, 39282, 06879, 95382 ####[facility] [place] [address], [facility] Sodium [Moles/Vol] 141 mmol/L Normal 136-145 [facility] Comment on above: Performed By: #### 1 0070, 31858, 37377, 42425, 58945, 84962 ####[facility] [place] [address], [facility] Urea nitrogen [Mass/Vol] 34 mg/dL High 7-25 [facility] Comment on above: Performed By: #### 1 0070, 58746, 03748, 40791, 39985, 38894 ####[facility] [place] [address], [facility] DIRECT BILIon 03-01-2021 Bilirubin.direct [Mass/Vol] 0.1 mg/dL Normal 0.0-0.2 [facility] Comment on above: Performed By: #### 1 0070, 28843, 02574, 29666, 11000, 24597 ####[facility] [place] [address], [facility] EVEROLIMUS 57933mo 2 EVEROLIMUS 3.5 ng/mL Normal [facility] Comment on above: Result Comment: Ther apeutic Range: Kidney transplant (in combination with Cyclosporine): 3-8 ng/mL Liver transplant (in combination with Tacrolimus): 3-8 ng/mL Toxic value: Greater than 15 ng/mL Everolimus marketed as Zortress is FDA approved for prophylaxis of organ rejection in adult patients receiving a kidney and liver transplant. Everolimus marketed as Afinitor is FDA approved for the treatment of renal cell carcinoma and for the treatment of subependymal giant cell astrocytoma (SEGA) associated with tuberous sclerosis (TS) in patients who are not candidates for curative surgical resection. The suggested therapeutic range for treatment of SEGA is 5-15 ng/mL, which is based on a predose (trough) specimen. The optimal therapeutic range for a given patient may differ from this suggested range based on the indication for therapy, treatment phase (initiation or maintenance), use in combination with other drugs, time of specimen collection relative to prior dose, type of transplanted organ, and/or the therapeutic approach of the transplant center. This test was developed and its performance characteristics determined by [facility]. It has not been cleared or approved by the US Food and Drug Administration. This test was performed in a CLIA certified laboratory and is intended for clinical purposes. Performed By: [facility] [address] [place] [id number] [employer] Referee: Krystal Vázquez MD LIPID PROFILEon 03-01-2021 Cholesterol [Mass/Vol] 230 mg/dL High 120-200 [facility] Comment on above: Result Comment: CHOL ESTEROL REFERENCE RANGE: 20 YEARS AND OLDER CARDIOVASCULAR RISK Less than 200 mg/dl Low Risk 200 to 239 mg/dl Borderline Risk 240 mg/dl and greater High Risk Performed By: #### 1 0070, 65117, 34985, 80326, 43438, 80477 ####[facility] [address], [facility] Cholesterol in HDL [Mass/Vol] 47 mg/dL Normal 23-92 [facility] Comment on above: Result Comment: Slig ht variation in normal range could be due to gender and/or age. HDL CHOLESTEROL REFERENCE RANGE: 20 years and older Cardiovascular Risk > or =60 mg/dL Desirable 40 TO 59 mg/dL Low Risk <40 mg/dL High Risk Performed By: #### 1 0070, 34354, 62617, 85952, 89148, 32908 ####[facility] [place] [address], [facility] Cholesterol in LDL [Mass/Vol] 128 mg/dL Normal 0-130 [facility] Comment on above: Result Comment: LDL IS A CALCULATION LDL IS ONLY VALID IF THE TRIG IS LESS THAN 400. Performed By: #### 1 0070, 49790, 15276, 20416, 85971, 77145 ####[facility] [place] [address], [facility] Cholesterol.total/Cho lesterol in HDL [Mass ratio] 4.9 {ratio} High .0-4.5 [facility] Comment on above: Performed By: #### 1 0070, 01795, 46743, 77343, 19825, 46430 ####[facility] [place] [address], [facility] NON-HDL CHOLESTEROL 183 mg/dL Normal [facility] Comment on above: Performed By: #### 1 0070, 89593, 79436, 28068, 94400, 41113 ####[facility] [place] [address], [facility] Triglyceride [Mass/Vol] 277 mg/dL High 40-149 [facility] Comment on above: Result Comment: TRIG LYCERIDE REFERENCE RANGE: 20 YEARS AND OLDER CARDIOVASCULAR RISK LESS THAN 150 mg/dl LOW RISK 150 TO 199 mg/dl BORDERLINE RISK 200 mg/dl AND GREATER HIGH RISK Performed By: #### 1 0070, 19889, 38618, 30489, 33686, 73311 ####[facility] [place] [address], [place] VLDL CHOL 55 mg/dL High 0-40 [facility] Comment on above: Performed By: #### 1 0070, 02232, 43969, 34447, 93021, 16133 ####[facility] [place] [address], [facility] MAGNESIUM BLOODon 03-01-2021 Magnesium [Mass/Vol] 1.9 mg/dL Normal 1.9-2.7 [facility] Comment on above: Performed By: #### 1 0070, 84816, 86867, 80657, 89877, 44446 ####[facility] [place] [address], [facility] PHOSPHORUS BLOODon Phosphate [Mass/Vol] 2.5 mg/dL Normal 2.5-5.0 [facility] Comment on above: Performed By: #### 1 0070, 56402, 91231, 38156, 56180, 16473 ####[facility] [facility] [address], [facility] PROSPERAon 03-01-2021 PROSPERA KIT Results to be mailed directly to physician's office by reference lab. Normal [facility] Comment on above: Performed By: #### 3 1756 #### [facility] [address] [facility] [place] [address], [facility] RESULT Normal [facility] Comment on above: Result Comment: Resu lts to be mailed directly to physician's office by reference lab. Performed By: #### 3 1756 #### [facility] [address] [place] [address], [facility] TACROLIMUSon 03-01-2021 Tacrolimus (Bld) [Mass/Vol] 10.6 ng/mL Normal 5.0-20.0 [facility] Comment on above: Result Comment: The [employer] Tacrolimus assay is a delayed one-step immunoassay for the quantitative determination of tacrolimus in human whole blood using the chemiluminescent microparticle immunoassay (CMIA) technology with flexible assay protocols, referred to as Chemiflex. Performed By: #### 3 1752 #### [facility] [address] [facility] URIC ACID BLOODon 03-01-2021 Urate [Mass/Vol] 3.5 mg/dL Normal 2.3-6.6 The [facility] Comment on above: Performed By: #### 1 0070, 24977, 20749, 38720, 83496, 61289 ####[facility] [place] [address], [facility] CBC W/DIFFon 02-02-2021 ABS IMM GRANS 0.0 10*3/uL Normal 0.0-0.2 The [facility] Comment on above: Performed By: #### 5 0103 #### [facility] [address] [facility] [place] [address], [facility] ABS NEUTROPHILS 5.5 10*3/uL Normal 1.6-7.6 The [facility] Comment on above: Performed By: #### 5 0103 #### [facility] [address] [place] [address], [facility] Basophils (Bld) [#/Vol] 0.0 10*3/uL Normal 0.0-0.2 [facility] Comment on above: Performed By: #### 5 0103 #### [facility] [address] [place] [address], [facility] Basophils/100 WBC (Bld) 0.4 % Normal 0.0-1.0 [facility] Comment on above: Performed By: #### 5 0103 #### [facility] [address] [place] [address], [facility] Eosinophils (Bld) [#/Vol] 0.1 10*3/uL Normal 0.0-0.5 [facility] Comment on above: Performed By: #### 5 0103 #### [facility] [address] [facility] Eosinophils/100 WBC (Bld) 1.5 % Normal 0.0-6.0 [facility] Comment on above: Performed By: #### 5 0103 #### [facility] [address] [facility] [place] [address], [facility] Erythrocyte distribution width (RBC) [Ratio] 12.8 % Normal 11.5-15.0 [facility] Comment on above: Performed By: #### 5 0103 #### [facility] [address] [facility] [place] [address], [facility] Hematocrit (Bld) [Volume fraction] 42.1 % Normal 36.0-45.0 [facility] Comment on above: Performed By: #### 5 0103 #### [facility] [address] [facility] Hemoglobin (Bld) [Mass/Vol] 13.3 g/dL Normal 12.0-15.0 [facility] Comment on above: Performed By: #### 5 0103 #### [facility] [address] [facility] [place] [address], [facility] IMMATURE GRANS 0.4 % Normal 0.0-1.0 The [facility] Comment on above: Performed By: #### 5 0103 #### [facility] [address] [facility] [place] [address], [facility] Lymphocytes (Bld) [#/Vol] 1.8 10*3/uL Normal 1.2-4.0 [facility] Comment on above: Performed By: #### 5 0103 #### [facility] [address] [facility] [place] [address], [facility] Lymphocytes/100 WBC (Bld) 21.2 % Normal 20.0-45.0 [facility] Comment on above: Performed By: #### 5 0103 #### [facility] [address] [facility] [place] [address], [facility] MCH (RBC) [Entitic mass] 27.4 pg Normal 27.0-33.0 [facility] Comment on above: Performed By: #### 5 0103 #### [facility] [address] [facility] MCHC (RBC) [Mass/Vol] 31.6 g/dL Low 32.0-35.0 [facility] Comment on above: Performed By: #### 5 0103 #### [facility] [address] [facility] MCV (RBC) [Entitic vol] 86.6 fL Normal 82.0-98.0 [facility] Comment on above: Performed By: #### 5 0103 #### [facility] [address] [facility] [address] Monocytes (Bld) [#/Vol] 1.0 10*3/uL Normal 0.1-1.0 [facility] Comment on above: Performed By: #### 5 0103 #### [facility] [address] [facility]. [address] MONOS 12.2 % High 5.0-12.0 [facility] Comment on above: Performed By: #### 5 3 #### [facility] [address] [facility] Neutrophils/100 WBC (Bld) 64.3 % Normal 40.0-72.0 [facility] Comment on above: Performed By: #### 5 3 #### [facility] [address] [facility] Nucleated RBC/100 WBC (Bld) [Ratio] 0 % Normal 0-0 [facility] Comment on above: Performed By: #### 5 3 #### [facility] [address] [place] [address], [facility] PLAT CNT 190 10*3/uL Normal 150-400 [facility] Comment on above: Performed By: #### 5 3 #### [facility] [address] [place] [address], [facility] RBC (Bld) [#/Vol] 4.86 10*6/uL Normal 3.80-5.00 [facility] Comment on above: Performed By: #### 5 0103 #### [facility] [address] [place] [address], [facility] WBC (Bld) [#/Vol] 8.49 10*3/uL Normal 4.00-10.60 [facility] Comment on above: Performed By: #### 5 0103 #### [facility] [address] [place] [address], [facility] COMP METABOLIC PANELon 02-02 Albumin [Mass/Vol] 3.9 g/dL Normal 3.5-5.7 [facility] Comment on above: Performed By: #### 3 175 #### [facility] [address] [place] [address], [facility] ALKALINE PHOSPH 54 IU/L Normal 34-[address] [facility] Comment on above: Performed By: #### 3 1751 #### [facility] [address] [place] [address], [facility] ALT [Catalytic activity/Vol] 19 U/L Normal 7-52 [facility] Comment on above: Performed By: #### 3 175 #### [facility] [address] [place] [address], [facility] AST [Catalytic activity/Vol] 19 U/L Normal 13-39 [facility] Comment on above: Performed By: #### 3 175 #### [facility] [address] [place] [address], [place] Bilirubin [Mass/Vol] 0.8 mg/dL Normal 0.3-1.0 [facility] Comment on above: Performed By: #### 3 1752 #### [facility] [address] [place] [address], [place] Calcium [Mass/Vol] 9.5 mg/dL Normal 8.6-10.3 [facility] Comment on above: Performed By: #### 3 175 #### [facility] [address] [place] [address], [place] Chloride [Moles/Vol] 105 mmol/L Normal 98-107 [facility] Comment on above: Performed By: #### 3 175 #### [facility] [address] [place] [address], [place] CO2 [Moles/Vol] 26 mmol/L Normal 21-[address] [facility] Comment on above: Performed By: #### 3 175 #### [facility] [address] [place] [address], [place] Creatinine [Mass/Vol] 1.92 mg/dL High 0.60-1.20 [facility] Comment on above: Performed By: #### 3 1752 #### [facility] [address] [place] [address], [facility] eGFR- 33 ml/min/1.73sq m Abnormal >60 [facility] Comment on above: Performed By: #### 3 1752 #### [facility] [address] [place] [address], [facility] eGFR- non- 27 ml/min/1.73sq m Abnormal >60 [facility] Comment on above: Performed By: #### 3 175 #### [facility] [address] [place] [address], [place] Glucose [Mass/Vol] 152 mg/dL High 70-100 [facility] Comment on above: Performed By: #### 3 175 #### [facility] [address] [place] [address], [facility] Potassium [Moles/Vol] 3.8 mmol/L Normal 3.5-5.1 [facility] Comment on above: Performed By: #### 3 1752 #### [facility] [address] [place] [address], [facility] Protein [Mass/Vol] 6.3 g/dL Normal 6.0-8.3 The [facility] Comment on above: Performed By: #### 3 1752 #### [facility] [address] [place] [address], [facility] Sodium [Moles/Vol] 139 mmol/L Normal 136-145 The [facility] Comment on above: Performed By: #### 3 1752 #### [facility] [address] Urea nitrogen [Mass/Vol] 40 mg/dL High 7-25 [facility] Comment on above: Performed By: #### 3 1752 #### [facility] [address] [facility] DIRECT BILIon 02-02-2021 Bilirubin.direct [Mass/Vol] 0.1 mg/dL Normal 0.0-0.2 [facility] Comment on above: Performed By: #### 3 1752 #### [facility] [address] EVEROLIMUS 10128ym EVEROLIMUS 4.0 ng/mL Normal [facility] Comment on above: Result Comment: Ther apeutic Range: Kidney transplant (in combination with Cyclosporine): 3-8 ng/mL Liver transplant (in combination with Tacrolimus): 3-8 ng/mL Toxic value: Greater than 15 ng/mL Everolimus marketed as Zortress is FDA approved for prophylaxis of organ rejection in adult patients receiving a kidney and liver transplant. Everolimus marketed as Afinitor is FDA approved for the treatment of renal cell carcinoma and for the treatment of subependymal giant cell astrocytoma (SEGA) associated with tuberous sclerosis (TS) in patients who are not candidates for curative surgical resection. The suggested therapeutic range for treatment of SEGA is 5-15 ng/mL, which is based on a predose (trough) specimen. The optimal therapeutic range for a given patient may differ from this suggested range based on the indication for therapy, treatment phase (initiation or maintenance), use in combination with other drugs, time of specimen collection relative to prior dose, type of transplanted organ, and/or the therapeutic approach of the transplant center. This test was developed and its performance characteristics determined by [facility]. It has not been cleared or approved by the US Food and Drug Administration. This test was performed in a CLIA certified laboratory and is intended for clinical purposes. Performed By: [facility] [address] [place] [id number] [employer] Referee: Krystal Vázquez MD LIPID PROFILEon 02-02-2021 Cholesterol [Mass/Vol] 230 mg/dL High 120-200 [facility] Comment on above: Result Comment: CHOL ESTEROL REFERENCE RANGE: 20 YEARS AND OLDER CARDIOVASCULAR RISK Less than 200 mg/dl Low Risk 200 to 239 mg/dl Borderline Risk 240 mg/dl and greater High Risk Performed By: #### 3 1752 #### [facility] [address] [place] [address], [facility] Cholesterol in HDL [Mass/Vol] 46 mg/dL Normal 23-92 [facility] Comment on above: Result Comment: Slig ht variation in normal range could be due to gender and/or age. HDL CHOLESTEROL REFERENCE RANGE: 20 years and older Cardiovascular Risk > or =60 mg/dL Desirable 40 TO 59 mg/dL Low Risk <40 mg/dL High Risk Performed By: #### 3 1752 #### [facility] [address] [facility] [place] [address], [facility] Cholesterol in LDL [Mass/Vol] 128 mg/dL Normal 0-130 [facility] Comment on above: Result Comment: LDL IS A CALCULATION LDL IS ONLY VALID IF THE TRIG IS LESS THAN 400. Performed By: #### 3 1752 #### [facility] [address] [facility] Cholesterol.total/Cho lesterol in HDL [Mass ratio] 5.0 {ratio} High .0-4.5 [facility] Comment on above: Performed By: #### 3 1752 #### [facility] [address] NON-HDL CHOLESTEROL 184 mg/dL Normal [facility] Comment on above: Performed By: #### 3 1752 #### [facility] [address] Triglyceride [Mass/Vol] 278 mg/dL High 40-149 [facility] Comment on above: Result Comment: TRIG LYCERIDE REFERENCE RANGE: 20 YEARS AND OLDER CARDIOVASCULAR RISK LESS THAN 150 mg/dl LOW RISK 150 TO 199 mg/dl BORDERLINE RISK 200 mg/dl AND GREATER HIGH RISK Performed By: #### 3 1752 #### [facility] [address] [facility] VLDL CHOL 56 mg/dL High 0-40 [facility] Comment on above: Performed By: #### 3 1752 #### [facility] [address] [place] [address], [facility] MAGNESIUM BLOODon 02-02-2021 Magnesium [Mass/Vol] 1.9 mg/dL Normal 1.9-2.7 [facility] Comment on above: Performed By: #### 3 1752 #### [facility] [address] [facility] [place] [address], [facility] PHOSPHORUS BLOODon Phosphate [Mass/Vol] 2.9 mg/dL Normal 2.5-5.0 [facility] Comment on above: Performed By: #### 3 1752 #### [facility] [address] [facility] [place] [address], [facility] PROSPERAon 02-02-2021 PROSPERA KIT Results to be mailed directly to physician's office by reference lab. Normal [facility] Comment on above: Result Comment: Test performed by [email or web address] [place] [address] No result expected. For billing and tracking purposes only. Specimen collected for transplant patient and sent to requesting hospital per instructions. No charge. Performed By: #### 3 1756 #### [facility] [address] RESULT Results to be mailed directly to physician's office by reference lab. Normal [facility] Comment on above: Performed By: #### 3 1756 #### [facility] [address] TACROLIMUSon 02-02-2021 Tacrolimus (Bld) [Mass/Vol] 7.0 ng/mL Normal 5.0-20.0 [facility] Comment on above: Result Comment: The [employer] Tacrolimus assay is a delayed one-step immunoassay for the quantitative determination of tacrolimus in human whole blood using the chemiluminescent microparticle immunoassay (CMIA) technology with flexible assay protocols, referred to as Chemiflex. Performed By: #### 9 9914 ####[facility] URIC ACID BLOODon 02-02-2021 Urate [Mass/Vol] 3.4 mg/dL Normal 2.3-6.6 [facility] Comment on above: Performed By: #### 3 1752 #### [facility] [address] BK VIRUS QUANTITATION FOR PL ASMAon 12-28-2020 BKV Plasma Quantitation by PCR Not detected Normal The [facility] Comment on above: Result Comment: Meth od: BK virus was measured by quantitative polymerase chain reaction using a fluorescent hydrolysis probe targeting the polyomavirus BK CERTIFIED TRAVEL COUNSELOR-1 gene. The lower limit of quantitation of the assay is 500 copies of BK genome per milliliter of plasma or urine, and any detectable BK DNA below that level is reported as: Detected, <500 copies/ml. Serial BK virus measurement can be used to monitor disease activity. (Reference: George hansen. J CLIN MICRO 2004; 42:4220-9406). This test was developed and its performance characteristics determined by the [facility]. It has not been approved by the US Food and Drug Administration. However, such approval is not required for clinical implementation, and test results have been shown to be clinically useful. This laboratory is CAP accredited and CLIA certified to perform high complexity testing. Performed By: #### 3 1756 #### [facility] [address] [facility] [place] [place] [address] [place] [address] BKV Plasma Quantitation Log by PCR Not detected Normal [facility] Comment on above: Performed By: #### 3 1756 #### [facility] [address] [facility] [place] [address], [facility] COMP METABOLIC PANELon 12-28 Albumin [Mass/Vol] 3.7 g/dL Normal 3.5-5.7 [facility] Comment on above: Performed By: #### 3 1752 #### [facility] [address] [place] [address], [facility] ALKALINE PHOSPH 66 IU/L Normal 34-104 [facility] Comment on above: Performed By: #### 3 1752 #### [facility] [address] [facility] [place] [address], [facility] ALT [Catalytic activity/Vol] 17 U/L Normal 7-52 [facility] Comment on above: Performed By: #### 3 1752 #### [facility] [address] [facility] [place] [address], [facility] AST [Catalytic activity/Vol] 17 U/L Normal 13-39 [facility] Comment on above: Performed By: #### 3 1752 #### [facility] [address] [place] [address], [place] Bilirubin [Mass/Vol] 0.9 mg/dL Normal 0.3-1.0 [facility] Comment on above: Performed By: #### 3 1752 #### [facility] [address] [place] [address], [place] Calcium [Mass/Vol] 9.8 mg/dL Normal 8.6-10.3 [facility] Comment on above: Performed By: #### 3 1752 #### [facility] [address] [place] [address], [place] Chloride [Moles/Vol] 102 mmol/L Normal 98-107 [facility] Comment on above: Performed By: #### 3 1752 #### [facility] [address] [place] [address], [place] CO2 [Moles/Vol] 28 mmol/L Normal 21-[address] [facility] Comment on above: Performed By: #### 3 1752 #### [facility] [address] [place] [address], [place] Creatinine [Mass/Vol] 1.94 mg/dL High 0.60-1.20 [facility] Comment on above: Performed By: #### 3 1752 #### [facility] [address] [place] [address], [place] eGFR- 32 ml/min/1.73sq m Abnormal >60 The [facility] Comment on above: Performed By: #### 3 1752 #### [facility] [address] [place] [address], [place] eGFR- non- 27 ml/min/1.73sq m Abnormal >60 The [facility] Comment on above: Performed By: #### 3 1752 #### [facility] [address] [place] [address], [place] Glucose [Mass/Vol] 211 mg/dL High 70-100 [facility] Comment on above: Performed By: #### 3 1752 #### [facility] [address] [place] [address], [place] Potassium [Moles/Vol] 3.8 mmol/L Normal 3.5-5.1 [facility] Comment on above: Performed By: #### 3 1752 #### [facility] [address] [place] [address], [facility] Protein [Mass/Vol] 6.0 g/dL Normal 6.0-8.3 [facility] Comment on above: Performed By: #### 3 1752 #### [facility] [address] [place] [address], [facility] Sodium [Moles/Vol] 137 mmol/L Normal 136-145 [facility] Comment on above: Performed By: #### 3 1752 #### [facility] [address] [place] [address], [facility] Urea nitrogen [Mass/Vol] 36 mg/dL High 7-25 [facility] Comment on above: Performed By: #### 3 1752 #### [facility] [address] [place] [address], [facility] CREATININE URINE RANDOMon Creatinine (U) [Mass/Vol] 18.0 mg/dL Normal [facility] Comment on above: Result Comment: Ther e are no established reference values for random urine specimens Performed By: #### 4 1802, 22629 ####[facility] [facility] [place] [address], [facility] DIRECT BILIon 12-28-2020 Bilirubin.direct [Mass/Vol] 0.2 mg/dL Normal 0.0-0.2 [facility] Comment on above: Performed By: #### 0 0121, 72145, 34269, 89423, 60748, 41481 ####[facility] [place] [address], [facility] EVEROLIMUS [id number] EVEROLIMUS 4.4 ng/mL Normal [facility] Comment on above: Result Comment: Ther apeutic Range: Kidney transplant (in combination with Cyclosporine): 3-8 ng/mL Liver transplant (in combination with Tacrolimus): 3-8 ng/mL Toxic value: Greater than 15 ng/mL Everolimus marketed as Zortress is FDA approved for prophylaxis of organ rejection in adult patients receiving a kidney and liver transplant. Everolimus marketed as Afinitor is FDA approved for the treatment of renal cell carcinoma and for the treatment of subependymal giant cell astrocytoma (SEGA) associated with tuberous sclerosis (TS) in patients who are not candidates for curative surgical resection. The suggested therapeutic range for treatment of SEGA is 5-15 ng/mL, which is based on a predose (trough) specimen. The optimal therapeutic range for a given patient may differ from this suggested range based on the indication for therapy, treatment phase (initiation or maintenance), use in combination with other drugs, time of specimen collection relative to prior dose, type of transplanted organ, and/or the therapeutic approach of the transplant center. This test was developed and its performance characteristics determined by [facility]. It has not been cleared or approved by the US Food and Drug Administration. This test was performed in a CLIA certified laboratory and is intended for clinical purposes. Performed By: [facility] [address] [place] [address] [employer] Referee: Krystal Vázquez MD LIPID PROFILEon 12-28-2020 Cholesterol [Mass/Vol] 263 mg/dL High 120-200 [facility] Comment on above: Result Comment: CHOL ESTEROL REFERENCE RANGE: 20 YEARS AND OLDER CARDIOVASCULAR RISK Less than 200 mg/dl Low Risk 200 to 239 mg/dl Borderline Risk 240 mg/dl and greater High Risk Performed By: #### 0 0121, 97761, 01244, 98658, 70814, 78146 ####[facility] [facility] [place] [address], [facility] Cholesterol in HDL [Mass/Vol] 47 mg/dL Normal 23-92 [facility] Comment on above: Result Comment: Slig ht variation in normal range could be due to gender and/or age. HDL CHOLESTEROL REFERENCE RANGE: 20 years and older Cardiovascular Risk > or =60 mg/dL Desirable 40 TO 59 mg/dL Low Risk <40 mg/dL High Risk Performed By: #### 0 0121, 55873, 12709, 89115, 74730, 62897 ####[facility] [place] [address], [facility] Cholesterol in LDL [Mass/Vol] 131 mg/dL High 0-130 [facility] Comment on above: Result Comment: LDL IS A CALCULATION LDL IS ONLY VALID IF THE TRIG IS LESS THAN 400. Performed By: #### 0 0121, 17418, 72379, 63680, 30190, 26498 ####[facility] [facility] [address], [facility] Cholesterol.total/Cho lesterol in HDL [Mass ratio] 5.6 {ratio} High .0-4.5 [facility] Comment on above: Performed By: #### 0 0121, 48400, 67337, 63525, 62241, 61229 ####[facility] [facility] NON-HDL CHOLESTEROL 216 mg/dL Normal The [facility] Comment on above: Performed By: #### 0 0121, 82295, 17490, 41413, 07192, 55557 ####[facility] [facility] Triglyceride [Mass/Vol] 424 mg/dL High 40-149 [facility] Comment on above: Result Comment: TRIG LYCERIDE REFERENCE RANGE: 20 YEARS AND OLDER CARDIOVASCULAR RISK LESS THAN 150 mg/dl LOW RISK 150 TO 199 mg/dl BORDERLINE RISK 200 mg/dl AND GREATER HIGH RISK Performed By: #### 0 0121, 60499, 33792, 49016, 55041, 42825 ####[facility] [place] [address], [facility] VLDL CHOL 85 mg/dL High 0-40 [facility] Comment on above: Performed By: #### 0 0121, 35342, 46475, 21273, 82265, 51111 ####[facility]3000 [place] [address], [facility] MAGNESIUM BLOODon 12-28-2020 Magnesium [Mass/Vol] 1.8 mg/dL Low 1.9-2.7 [facility] Comment on above: Performed By: #### 0 0121, 27922, 63035, 31140, 31377, 61685 ####[facility] [place] [address], [facility] PHOSPHORUS BLOODon Phosphate [Mass/Vol] 2.4 mg/dL Low 2.5-5.0 [facility] Comment on above: Performed By: #### 0 0121, 64631, 15138, 32964, 73758, 04283 ####[facility] [facility].[address] PROSPERAon 12-28-2020 PROSPERA KIT Results to be mailed directly to physician's office by reference lab. Normal [facility] Comment on above: Result Comment: Test performed by [email or web address] [place] [address] Specimen collected for transplant patient and sent to [facility] per Dr instructions. No charge. No result expected. For billing and tracking purposes only. Performed By: #### 3 1756 #### [facility] [address] [facility]. [address] RESULT Results to be mailed directly to physician's office by reference lab. Normal [facility] Comment on above: Performed By: #### 3 1756 #### [facility] [address] [place] [address], [facility] T PROT UR Nasir 12-28-2020 U TOTAL PROTEIN 34.0 mg/dL Normal The [facility] Comment on above: Result Comment: Ther e are no established reference values for random urine specimens Performed By: #### 4 1802, 10871 ####[facility] [place] [address], [facility] TACROLIMUSon 12-28-2020 Tacrolimus (Bld) [Mass/Vol] 7.9 ng/mL Normal 5.0-20.0 [facility] Comment on above: Result Comment: The [employer] Tacrolimus assay is a delayed one-step immunoassay for the quantitative determination of tacrolimus in human whole blood using the chemiluminescent microparticle immunoassay (CMIA) technology with flexible assay protocols, referred to as Chemiflex. Performed By: #### 9 9914 ####[facility] [place] [address], [facility] URIC ACID BLOODon 12-28-2020 Urate [Mass/Vol] 2.9 mg/dL Normal 2.3-6.6 The [facility] Comment on above: Performed By: #### 0 0121, 74760, 53510, 68076, 79768, 42053 ####[facility] [facility] [address], [facility] COMP METABOLIC PANELon 12-01 Albumin [Mass/Vol] 3.9 g/dL Normal 3.5-5.7 [facility] Comment on above: Performed By: #### 1 0070, 93802, 42742, 09743, 14412, 24125 ####[facility] [facility] [place] [address], [facility] ALKALINE PHOSPH 95 IU/L Normal 34-[address] [facility] Comment on above: Performed By: #### 1 0070, 10187, 28004, 12770, 32397, 98218 ####[facility] [place] [address], [facility] ALT [Catalytic activity/Vol] 22 U/L Normal 7-52 [facility] Comment on above: Performed By: #### 1 0070, 11241, 06798, 24741, 27476, 54328 ####[facility] [place] [address], [facility] AST [Catalytic activity/Vol] 18 U/L Normal 13-39 [facility] Comment on above: Performed By: #### 1 0070, 42331, 76868, 65057, 16420, 99089 ####[facility] [place] [address], [place] Bilirubin [Mass/Vol] 0.9 mg/dL Normal 0.3-1.0 [facility] Comment on above: Performed By: #### 1 0070, 63255, 82544, 33326, 42076, 60092 ####[facility] [place] [address], [place] Calcium [Mass/Vol] 10.2 mg/dL Normal 8.6-10.3 [facility] Comment on above: Performed By: #### 1 0070, 04020, 74465, 20570, 15328, 93566 ####[facility] [place] [address], [place] Chloride [Moles/Vol] 100 mmol/L Normal 98-107 [facility] Comment on above: Performed By: #### 1 0070, 98075, 05142, 71214, 75693, 60009 ####[facility] [place] [address], [place] CO2 [Moles/Vol] 28 mmol/L Normal 21-31 [facility] Comment on above: Performed By: #### 1 0070, 64806, 78118, 32500, 83893, 21142 ####[facility] [place] [address], [place] Creatinine [Mass/Vol] 2.01 mg/dL High 0.60-1.20 [facility] Comment on above: Performed By: #### 1 0070, 32272, 17588, 27909, 72378, 21375 ####[facility] [place] [address], [place] eGFR- 30 ml/min/1.73sq m Abnormal >60 [facility] Comment on above: Performed By: #### 1 0070, 11832, 77089, 25188, 92190, 25133 ####[facility] [place] [address], [facility] eGFR- non- 25 ml/min/1.73sq m Abnormal >60 [facility] Comment on above: Performed By: #### 1 0070, 98208, 73329, 56768, 23273, 35980 ####[facility] [place] [address], [facility] Glucose [Mass/Vol] 280 mg/dL High 70-100 [facility] Comment on above: Performed By: #### 1 0070, 56563, 05963, 40278, 35680, 84297 ####[facility] [place] [address], [place] Potassium [Moles/Vol] 4.3 mmol/L Normal 3.5-5.1 [facility] Comment on above: Performed By: #### 1 0070, 27500, 25049, 52197, 84768, 35976 ####[facility] [place] [address], [facility] Protein [Mass/Vol] 6.5 g/dL Normal 6.0-8.3 [facility] Comment on above: Performed By: #### 1 0070, 04590, 41088, 57259, 08668, 30435 ####[facility] [place] [address], [place] Sodium [Moles/Vol] 135 mmol/L Low 136-145 [facility] Comment on above: Performed By: #### 1 0070, 12212, 41574, 76237, 10961, 35081 ####[facility] Urea nitrogen [Mass/Vol] 40 mg/dL High 7-25 [facility] Comment on above: Performed By: #### 1 0070, 91680, 71375, 54402, 64927, 77711 ####[facility] [place] [address], [facility] DIRECT BILIon 12-01-2020 Bilirubin.direct [Mass/Vol] 0.1 mg/dL Normal 0.0-0.2 [facility] Comment on above: Performed By: #### 1 0070, 39457, 99754, 09810, 94166, 41628 ####[facility] EVEROLIMUS [address]le EVEROLIMUS 4.2 ng/mL Normal [facility] Comment on above: Result Comment: Ther apeutic Range: Kidney transplant (in combination with Cyclosporine): 3-8 ng/mL Liver transplant (in combination with Tacrolimus): 3-8 ng/mL Toxic value: Greater than 15 ng/mL Everolimus marketed as Zortress is FDA approved for prophylaxis of organ rejection in adult patients receiving a kidney and liver transplant. Everolimus marketed as Afinitor is FDA approved for the treatment of renal cell carcinoma and for the treatment of subependymal giant cell astrocytoma (SEGA) associated with tuberous sclerosis (TS) in patients who are not candidates for curative surgical resection. The suggested therapeutic range for treatment of SEGA is 5-15 ng/mL, which is based on a predose (trough) specimen. The optimal therapeutic range for a given patient may differ from this suggested range based on the indication for therapy, treatment phase (initiation or maintenance), use in combination with other drugs, time of specimen collection relative to prior dose, type of transplanted organ, and/or the therapeutic approach of the transplant center. This test was developed and its performance characteristics determined by [facility]. It has not been cleared or approved by the US Food and Drug Administration. This test was performed in a CLIA certified laboratory and is intended for clinical purposes. Performed By: [facility] [address] [place] [address] [employer] Referee: Krystal Vázquez MD LIPID PROFILEon 12-01-2020 Cholesterol [Mass/Vol] 261 mg/dL High 120-200 [facility] Comment on above: Result Comment: CHOL ESTEROL REFERENCE RANGE: 20 YEARS AND OLDER CARDIOVASCULAR RISK Less than 200 mg/dl Low Risk 200 to 239 mg/dl Borderline Risk 240 mg/dl and greater High Risk Performed By: #### 1 0070, 95275, 67250, 62986, 53411, 00839 ####[facility] [place] [address], [facility] Cholesterol in HDL [Mass/Vol] 48 mg/dL Normal 23-92 [facility] Comment on above: Result Comment: Slig ht variation in normal range could be due to gender and/or age. HDL CHOLESTEROL REFERENCE RANGE: 20 years and older Cardiovascular Risk > or =60 mg/dL Desirable 40 TO 59 mg/dL Low Risk <40 mg/dL High Risk Performed By: #### 1 0070, 69194, 52397, 63057, 41189, 24962 ####[facility] [place] [address], [facility] Cholesterol in LDL [Mass/Vol] 133 mg/dL High 0-130 [facility] Comment on above: Result Comment: LDL IS A CALCULATION LDL IS ONLY VALID IF THE TRIG IS LESS THAN 400. Performed By: #### 1 0070, 66551, 11387, 92413, 74635, 40966 ####[facility] [place] [address], [facility] Cholesterol.total/Cho lesterol in HDL [Mass ratio] 5.4 {ratio} High .0-4.5 [facility] Comment on above: Performed By: #### 1 0070, 53199, 67318, 33096, 11918, 40203 ####[facility] [place] [address], [place] NON-HDL CHOLESTEROL 213 mg/dL Normal [facility] Comment on above: Performed By: #### 1 0070, 40833, 95793, 48608, 11979, 35056 ####[facility] Triglyceride [Mass/Vol] 398 mg/dL High 40-149 [facility] Comment on above: Result Comment: TRIG LYCERIDE REFERENCE RANGE: 20 YEARS AND OLDER CARDIOVASCULAR RISK LESS THAN 150 mg/dl LOW RISK 150 TO 199 mg/dl BORDERLINE RISK 200 mg/dl AND GREATER HIGH RISK Performed By: #### 1 0070, 75488, 39236, 95347, 82102, 45148 ####[facility] [place] [address], [facility] VLDL CHOL 80 mg/dL High 0-40 [facility] Comment on above: Performed By: #### 1 0070, 28729, 04330, 54898, 65520, 47367 ####[facility] MAGNESIUM BLOODon 12-01-2020 Magnesium [Mass/Vol] 1.8 mg/dL Low 1.9-2.7 [facility] Comment on above: Performed By: #### 1 0070, 85139, 26621, 46590, 70525, 03340 ####[facility] [place] [address], [facility] PHOSPHORUS BLOODon Phosphate [Mass/Vol] 2.8 mg/dL Normal 2.5-5.0 [facility] Comment on above: Performed By: #### 1 0070, 44130, 76774, 23110, 30943, 20994 ####[facility] PROSPERAon 12-01-2020 PROSPERA KIT Results to be mailed directly to physician's office by reference lab. Normal [facility] Comment on above: Result Comment: Test performed by [email or web address] [place] [address] No result expected. For billing and tracking purposes only. Specimen collected for [facility]. No charge. Performed By: #### 3 1756 #### [facility] [address] RESULT Results to be mailed directly to physician's office by reference lab. Normal [facility] Comment on above: Performed By: #### 3 1756 #### [facility] [address] TACROLIMUSon 12-01-2020 Tacrolimus (Bld) [Mass/Vol] 6.5 ng/mL Normal 5.0-20.0 [facility] Comment on above: Result Comment: The [employer] Tacrolimus assay is a delayed one-step immunoassay for the quantitative determination of tacrolimus in human whole blood using the chemiluminescent microparticle immunoassay (CMIA) technology with flexible assay protocols, referred to as Chemiflex. Performed By: #### 9 9914 ####[facility] URIC ACID BLOODon 12-01-2020 Urate [Mass/Vol] 3.2 mg/dL Normal 2.3-6.6 The [facility] Comment on above: Performed By: #### 1 0070, 79232, 79291, 52377, 72941, 75975 ####[facility] Vital Signs Date Time Vital Sign Value Performing Clinician Facility 02-15-2024 11:48-0500 Body height 167.6 cm Steven Jones MD Work Phone: [facility] 02-15-2024 11:48-0500 Body mass index (BMI) [Ratio] 27.92 kg/m2 Steven Jones MD Work Phone: [facility] 02-15-2024 11:48-0500 Body weight 78.47 kg Steven Jones MD Work Phone: [facility] 12-15-2023 13:22-0400 Body height 167.6 cm Jm Calderon MD Work Phone: [facility] 12-15-2023 13:22-0400 Body mass index (BMI) [Ratio] 27.12 kg/m2 Jm Calderon MD Work Phone: [facility] 12-15-2023 13:22-0400 Body weight 76.2 kg Jm Calderon MD Work Phone: [facility] 12-15-2023 13:22-0400 Diastolic blood pressure 78 mm[Hg] Jm Calderon MD Work Phone: [facility] 12-15-2023 13:22-0400 Heart rate 63 /min Jm Calderon MD Work Phone: [facility] 12-15-2023 13:22-0400 Respiratory rate 16 /min Jm Calderon MD Work Phone: [facility] 12-15-2023 13:22-0400 Systolic blood pressure 118 mm[Hg] Jm Calderon MD Work Phone: [facility] 11-16-2023 12:56-0400 Heart rate 73 /min Samia Allen MD Work Phone: [facility] 11-16-2023 12:56-0400 SaO2% (BldA) [Mass fraction] 95 % Samia Allen MD Work Phone: [facility] 11-16-2023 11:43-0400 Body temperature 98.1 [degF] Samia Allen MD Work Phone: [facility] 11-16-2023 07:04-0400 Diastolic blood pressure 84 mm[Hg] Samia Allen MD Work Phone: [facility] 11-16-2023 07:04-0400 Systolic blood pressure 135 mm[Hg] Samia Allen MD Work Phone: [facility] 11-16-2023 05:50-0400 Body mass index (BMI) [Ratio] 28.16 kg/m2 Samia Allen MD Work Phone: [facility] 11-16-2023 05:50-0400 Body weight 79.1 kg Samia Allen MD Work Phone: [facility] 11-16-2023 03:09-0400 Respiratory rate 19 /min Samia Allen MD Work Phone: [facility] 11-10-2023 14:31-0400 Body height 167.6 cm Samia Allen MD Work Phone: [facility] 11-09-2023 15:37-0400 Body temperature 37.0 Samia Allen MD Work Phone: [facility] 09-09-2021 13:50-0400 Body height 170.18 cm Felisa Adams Other [facility] Other 09-09-2021 13:50-0400 Body mass index (BMI) [Ratio] 24.43 kg/m2 Felisa Angie Other [facility] Other 09-09-2021 13:50-0400 Body temperature 98.2 [degF] Felisa Angie Other [facility] Other 09-09-2021 13:50-0400 Body weight 70.76 kg Felisa Angie Other [facility] Other 09-09-2021 13:50-0400 Diastolic blood pressure 64 mm[Hg] Felisa Angie Other [facility] Other 09-09-2021 13:50-0400 Respiratory rate 18 /min Felisa Adams Other [facility] Other 09-09-2021 13:50-0400 SaO2% (BldA) [Mass fraction] 99 % Felisa Adams Other [facility] Other 09-09-2021 13:50-0400 Systolic blood pressure 108 mm[Hg] Felisa Adams Other [facility] Other 05-23-2021 14:00-0400 Body height 170.18 cm Bonnie Raygoza Other [facility] Other 05-23-2021 14:00-0400 Body mass index (BMI) [Ratio] 23.18 kg/m2 Bonnie Raygoza Other [facility] Other 05-23-2021 14:00-0400 Body temperature 97.9 [degF] Bonnie Raygoza Other [facility] Other 05-23-2021 14:00-0400 Body weight 67.13 kg Bonnie Raygoza Other [facility] Other 05-23-2021 14:00-0400 Diastolic blood pressure 75 mm[Hg] Bonnie Raygoza Other [facility] Other 05-23-2021 14:00-0400 Respiratory rate 18 /min Bonnie Raygoza Other [facility] Other 05-23-2021 14:00-0400 SaO2% (BldA) [Mass fraction] 98 % Bonnie Raygoza Other [facility] Other 05-23-2021 14:00-0400 Systolic blood pressure 124 mm[Hg] Bonnie Raygoza Other [facility] Other Encounters Encounter Date Encounter Type Care Provider Facility Start: 03-21-2024 ambulatory [facility] Start: 02-26-2024 End: 02-26-2024 [facility] Start: 02-15-2024 End: 02-17-2024 ambulatory STEVEN JONES [facility] Start: 02-15-2024 End: 02-17-2024 Subsequent hospital visit by physician Steven Jones MD Work Phone: [facility] Comment on above: Acute saddle pulmona ry embolism with acute cor pulmonale (HCC); 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) Start: 01-29-2024 End: 01-29-2024 [facility] Start: 12-25-2023 End: 12-25-2023 [facility] Start: 12-15-2023 End: 12-15-2023 Bamboo flowsheet Jm Calderon MD Work Phone: [facility] Start: 12-15-2023 End: 12-15-2023 Zay Calderon MD Work Phone: [facility] Start: 12-15-2023 End: 12-15-2023 Office outpatient visit 25 minutes Jm Calderon MD Work Phone: [facility] Comment on above: Type 2 diabetes chino itus with hyperglycemia, with long-term current use of insulin (CMS/HCC) (Primary Dx); Insulin long-term use (CMS/HCC); Hyperlipemia, mixed (CMS/HCC); Encounter for dietary consultation; Vitamin D deficiency; Acquired hypothyroidism (CMS/HCC); skilled nursing current use of systemic steroids; Kidney transplant status (CMS/HCC) Start: 12-14-2023 [facility] Start: 12-11-2023 End: 12-11-2023 [facility] Start: 11-10-2023 Evaluation and manag ement of inpatient KERON MCLEAN MARILUZ [facility] Start: 11-08-2023 End: 11-16-2023 [facility] Start: 11-08-2023 Evaluation and manag ement of inpatient SAUL MARINO [facility] Start: 11-03-2023 End: 11-03-2023 ambulatory TOY MAURICIO [facility] Start: 10-20-2023 ambulatory LYNN MEREDITH [facility] Start: 10-19-2023 Emergency department patient visit LYNN MEREDITH [facility] Start: 10-19-2023 End: 10-23-2023 Evaluation and management of inpatient DOLORES COOLDELMIS [facility] Start: 10-19-2023 Emergency department patient visit JULIUS CORONA [facility] Start: 10-16-2023 End: 10-16-2023 ambulatory [facility] Start: 09-29-2023 ambulatory O[facility] Start: 09-18-2023 End: 09-18-2023 ambulatory [facility] Start: 08-08-2023 ambulatory I [facility] Start: 07-03-2023 ambulatory [facility] Start: 06-06-2023 ambulatory [facility] Start: 05-25-2023 End: 05-25-2023 ambulatory [facility] Start: 04-27-2023 End: 04-27-2023 ambulatory [facility] Start: 03-30-2023 End: 03-30-2023 ambulatory OBI [facility] Start: 03-07-2022 End: 03-08-[address] ALEJANDRO VILLAGRAN Facility: Start: 11-25-2021 End: 11-26-[address] ALEJANDRO VILLAGRAN Facility: Start: 10-10-2021 End: 10-10-2021 ambulatory ALEJANDRO VILLAGRAN Facility:[facility] Start: 09-09-2021 End: 09-09-2021 ambulatory Felisa Adams Other [facility] Other Start: 09-09-2021 Office outpatient vi sit 25 minutes Felisa Adams [facility] Start: 05-27-2021 End: 05-27-2021 ambulatory Bonnie Raygoza Other [facility] Other Start: 05-27-2021 Telephone encounter Bonnie Raygoza [facility] [address] Start: 05-23-2021 End: 05-23-2021 ambulatory Bonnie Ryagoza Other [facility] Other Start: 05-23-2021 Office outpatient ne w 20 minutes Bonnie Raygoza [facility] Start: 05-23-2021 End: 05-23-2021 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 Bonnie Raygoza Work Phone: [facility] [place] Start: 04-05-2021 End: 04-05-2021 ambulatory [place] EKWENNA Facility:[facility] Start: 03-29-2021 End: 03-29-2021 ambulatory [place] EKWENNA Facility:[facility] Start: 03-01-2021 End: 03-01-2021 ambulatory [place] EKWENNA Facility:[facility] Procedures Date Procedure Procedure Detail Performing Clinician Start: 02-15-2024 Echo tthrc r-t 2d w/wom-mode compl spec&colr d Steven Jones MD Work Phone: Start: 12-15-2023 Gluc bld gluc mntr dev cleared fda spec home use Jm Calderon MD Work Phone: Start: 12-11-2023 Follow-up visit Follow-up OBI EKWENNA Start: 11-16-2023 Glucose blood reagent strip William Mcknight MD Start: 11-16-2023 Glucose blood reagent strip William Mcknight MD Start: 11-16-2023 BASIC METABOLIC PANEL W/ REFLEX TO MG FOR LOW K Lauro Sprague MD Work Phone: Start: 11-15-2023 Glucose blood reagent strip William Mcknight MD Start: 11-15-2023 Glucose blood reagent strip William Mcknight MD Start: 11-15-2023 HOME O2 EVAL (DESATURATION SCREEN) Steven Jones MD Work Phone: Start: 11-15-2023 Glucose blood reagent strip William Mcknight MD Start: 11-15-2023 Glucose blood reagent strip William Mcknight MD Start: 11-15-2023 Basic metabolic panel calcium total Samantha Merlos MEDICAL TRANSPORT SPECIALIST - TRAUMA COORDINATOR Work Phone: Start: 11-14-2023 Glucose blood reagent strip William Mcknight MD Start: 11-14-2023 Glucose blood reagent strip William Mcknight MD Start: 11-14-2023 Glucose blood reagent strip William Mcknight MD Start: 11-14-2023 Glucose blood reagent strip William Mcknight MD Start: 11-14-2023 ANTI-XA, UNFRACTIONATED HEPARIN William Mcknight MD Start: 11-14-2023 Basic metabolic panel calcium total Samantha Gaurang MEDICAL TRANSPORT SPECIALIST - TRAUMA COORDINATOR Work Phone: Start: 11-13-2023 Glucose blood reagent strip William Mcknight MD Start: 11-13-2023 Glucose blood reagent strip William Mcknight MD Start: 11-13-2023 Glucose blood reagent strip William Mcknight MD Start: 11-13-2023 Glucose blood reagent strip William Mcknight MD Start: 11-13-2023 ANTI-XA, UNFRACTIONATED HEPARIN William Mcknight MD Start: 11-13-2023 Basic metabolic panel calcium total Samantha Merlos MEDICAL TRANSPORT SPECIALIST - TRAUMA COORDINATOR Work Phone: Start: 11-12-2023 Glucose blood reagent strip William Mcknight MD Start: 11-12-2023 Glucose blood reagent strip William Mcknight MD Start: 11-12-2023 Glucose blood reagent strip William Mcknight MD Start: 11-12-2023 Glucose blood reagent strip William Mcknight MD Start: 11-12-2023 ANTI-XA, UNFRACTIONATED HEPARIN William Mcknight MD Start: 11-12-2023 Basic metabolic panel calcium total Alejandro Bowers DO Work Phone: Start: 11-12-2023 Drug screen quantitative tacrolimus Zander Kramer MD Work Phone: Start: 11-11-2023 Glucose blood reagent strip William Mcknight MD Start: 11-11-2023 ANTI-XA, UNFRACTIONATED HEPARIN William Mckngiht MD Start: 11-11-2023 Glucose blood reagent strip William Mcknight MD Start: 11-11-2023 ANTI-XA, UNFRACTIONATED HEPARIN William Mcknight MD Start: 11-11-2023 Glucose blood reagent strip William Mcknight MD Start: 11-11-2023 Glucose blood reagent strip William Mcknight MD Start: 11-11-2023 ANTI-XA, UNFRACTIONATED HEPARIN Alejandro Bowers DO Work Phone: Start: 11-11-2023 Assay of magnesium William Mcknight MD Start: 11-11-2023 BASIC METABOLIC PANEL W/ REFLEX TO MG FOR LOW K William Mcknight MD Start: 11-10-2023 End: 11-10-2023 Glucose blood reagent strip William Mcknight MD Start: 11-10-2023 Glucose blood reagent strip William Mcknight MD Start: 11-10-2023 End: 11-10-2023 THROMBECTOMY MECHANICAL PERCUTANEOUS Keron Ghosh MD Work Phone: Start: 11-10-2023 CATH HEMO INTERFACE Keron Matthew Work Phone: Start: 11-10-2023 Glucose blood reagent strip William Mcknight MD Start: 11-10-2023 Glucose blood reagent strip William Mcknight MD Start: 11-10-2023 Glucose blood reagent strip William Mcknight MD Start: 11-10-2023 Glucose blood reagent strip William Mcknight MD Start: 11-10-2023 ANTI-XA, UNFRACTIONATED HEPARIN Alejandro Bowers DO Work Phone: Start: 11-10-2023 Assay of magnesium Alejandro Bowers DO Work Phone: Start: 11-10-2023 BASIC METABOLIC PANEL W/ REFLEX TO MG FOR LOW K Alejandro Bowers DO Work Phone: Start: 11-09-2023 End: 11-09-2023 Glucose blood reagent strip Lashaun montalvo DO Work Phone: Start: 11-09-2023 ANTI-XA, UNFRACTIONATED HEPARIN Lashaun Womack DO Work Phone: Start: 11-09-2023 Glucose blood reagent strip Lashaun montalvo DO Work Phone: Start: 11-09-2023 Dup-scan artl pramod abdl/pel/scrot&/rpr orgn lmt Maria Isabel Fitch DO Work Phone: Start: 11-09-2023 Dup-scan xtr veins complete bilateral study Cholo Omalley MD Work Phone: Start: 11-09-2023 INFECTIOUS DISEASE INTERVENTION Alejandro Bowers DO Work Phone: Start: 11-09-2023 EJECTION FRACTION PERCENTAGE Historical Provider Start: 11-09-2023 Protein electrophoretic fractj&quantj serum Cholo Omalley MD Work Phone: Start: 11-09-2023 Radiologic exam chest single view Alejandro Bowers DO Work Phone: Start: 11-09-2023 End: 11-09-2023 Assay of lactate Lashaun Womack DO Work Phone: Start: 11-09-2023 Blood gases any combination ph pco2 po2 co2 hco3 Lashaun Womack DO Work Phone: Start: 11-09-2023 PREVIOUS SPECIMEN Lashaun Womack DO Work Phone: Start: 11-09-2023 ANTI-XA, UNFRACTIONATED HEPARIN Lashaun Womack DO Work Phone: Start: 11-09-2023 End: 11-09-2023 Assay of free thyroxine Lashaun mays DO Work Phone: Start: 11-09-2023 BASIC METABOLIC PANEL W/ REFLEX TO MG FOR LOW K Alejandro Bowers DO Work Phone: Start: 11-09-2023 Iadna s aureus methicillin resist amp probe tq Lashaun Womack DO Work Phone: Start: 11-09-2023 RESPIRATORY PANEL, MOLECULAR, WITH COVID-19 Lashaun Womack DO Work Phone: Start: 11-09-2023 Glucose blood reagent strip Lashaun montalvo DO Work Phone: Start: 11-09-2023 ARTERIAL BLOOD GAS, POC Lashaun mays DO Work Phone: Start: 11-09-2023 Glucose blood reagent strip Samia arzola MD Work Phone: Start: 11-09-2023 ANTI-XA, UNFRACTIONATED HEPARIN Samia Allen MD Work Phone: Start: 11-09-2023 Assay of magnesium Alejandro Bowers DO Work Phone: Start: 11-09-2023 Echo tthrc r-t 2d w/wom-mode compl spec&colr d Netta Wall MD Work Phone: Start: 11-09-2023 End: 11-09-2023 Glucose blood reagent strip Samia arzola MD Work Phone: Start: 11-09-2023 Assay of troponin quantitative Netta Wall MD Work Phone: Start: 11-08-2023 End: 11-08-2023 Iaad ia mult step method nos each organism Netta Wall MD Work Phone: Start: 11-08-2023 Ct thorax w/o contrast material Netta Wall MD Work Phone: Start: 11-08-2023 Assay of lactate Netta Wall MD Work Phone: Start: 11-08-2023 CULTURE, BLOOD 1 Netta Wall MD Work Phone: Start: 11-08-2023 End: 11-08-2023 Comprehensive metabolic panel Sena Miester MEDICAL TRANSPORT SPECIALIST - TRAUMA COORDINATOR Work Phone: Start: 11-08-2023 Ecg routine ecg w/least 12 lds trcg only w/o i&r Netta Wlal MD Work Phone: Start: 11-08-2023 STREP PNEUMONIAE ANTIGEN Netta Matthew Work Phone: Start: 09-09-2021 Piperacillin/tazobactam Felisa Adams Other History of renal transplant Kidn ey transplant status ([facility]) Jm Calderon MD Work Phone: History of renal transplant Hist ory of renal transplant Samia Allen MD Work Phone: Plan of Treatment Date Care Activity Detail Author Start: 04-04-2026 Pneumococcal 0-64 years Vaccine (3 of 3 - PPSV23 or PCV20) Pneumococcal 0-64 years Vaccine (3 of 3 - PPSV23 or PCV20) [facility] Start: 04-04-[address] [facility] Start: 12-26-2025 Screening for malignant neoplasm of colon [facility] Start: 06-14-2024 End: 06-14-2024 Patient encounter procedure 06/14/2024 1:30 PM EDT Office Visit [facility] [address] [place] [address] Jm Calderon MD [address], [address] [place] [address] [facility] Start: 03-03-2024 End: 03-03-2024 Patient encounter procedure 03/03/2024 10:00 AM EST Office Visit [facility] [address] [place] [id number] Steven Jones MD [address] [place] [address] CP PENDING ECHO SCHEDULED 02/14 LS///PFT and 6 mwt, f/u after ECHO [facility] Comment on above: CP PENDING ECHO SCHE DULED 02/14 LS///PFT and 6 mwt, f/u after ECHO Start: 12-15-2023 End: 12-15-2023 Patient encounter procedure 12/15/2023 1:10 PM EDT Office Visit [facility] [address] [place] [address] Jm Calderon MD [address] [place] [address] Type 2 diabetes mellitus with hyperglycemia, with long-term current use of insulin ([facility]) [facility] Comment on above: Type 2 diabetes chino itus with hyperglycemia, with long-term current use of insulin (CMS/HCC) Start: 09-24-[address] [facility] Start: 2021 Respiratory Syncytia l Virus (RSV) or age 60 yrs+ (1 - Risk 60-74 years 1-dose series) Respiratory Syncytial Virus (RSV) or age 60 yrs+ (1 - Risk 60-74 years 1-dose series) [facility] Start: 2021 [facility] Start: 05-23-2021 Bacteria identified in Urine by Culture Urine Culture [facility] Start: 2006 [facility] Start: 2001 [facility] for malignant [facility]oplasm of breast [facility] Start: 09-07-1991 Screening for malignant neoplasm of cervix [facility] Start: 1982 Screening for malignant neoplasm of cervix [facility] Start: 1980 DTaP/Tdap/Td vaccine (1 - Tdap) DTaP/Tdap/Td vaccine (1 - Tdap) [facility] Start: 1980 Shingles vaccine (1 of 2) Shingles vaccine (1 of 2) [facility] Start: 1980 [facility] Start: 09-07-1979 Glaucoma screening [facility] Start: 09-07-1979 Hepatitis C screening [facility] Start: 1976 HIV screening [facility] [employer] Start: 1973 Depression Screen Depression Screen [facility] Start: 1973 [facility] Start: 09-07-1971 Diabetic foot examination [facility] Start: 09-07-1971 Hemoglobin A1c measurement [facility] Start: 09-07-1971 Lipid panel [employer] Start: 1966 COVID-19 Vaccine (#1) COVID-19 Vacci ne (#1) [facility] Start: 1966 [place] Bacteria identified in Urine by Culture [facility] Work Phone: End: 11-18-2023 Basic Metabolic Panel w/ Reflex to MG [facility] Continuous pulse oximetry [facility] End: 11-08-2023 Culture, Respiratory [facility] Glucose [Mass/volume ] in Serum or Plasma [facility] Glucose [Mass/volume ] in Serum or Plasma [facility] Nasal Cannula Oxygen [facility] Oxygen therapy [Minimum Data Set] [facility] Immunizations Immunization Date Immunization Notes Care Provider Ancelmo khoury 12-11-2022 influenza, injectabl e, quadrivalent, preservative free Jm Calderon MD Work Phone: [facility] 12-02-2021 Influenza, injectabl e, Madin Melissa Canine Kidney, quadrivalent with preservative Jm Calderon MD Work Phone: [facility] 04-04-2021 pneumococcal polysaccharide vaccine, 23 valent Jm Calderon MD Work Phone: [facility] 12-06-2019 influenza, injectabl e, quadrivalent, preservative free Jm Calderon MD Work Phone: [facility] 11-23-2017 influenza, injectabl e, quadrivalent, contains preservative Jm Calderon MD Work Phone: [facility] 11-27-2016 influenza, injectabl e, quadrivalent, contains preservative Jm Calderon MD Work Phone: [facility] 11-24-2015 influenza, injectabl e, quadrivalent, contains preservative Jm Calderon MD Work Phone: [facility] 09-21-2015 pneumococcal conjuga te vaccine, 13 valent Jm Calderon MD Work Phone: [facility] 08-24-2015 pneumococcal conjuga te vaccine, 13 valent Jm Calderon MD Work Phone: [facility] 04-16-2009 novel influenza-H1N1 -09, preservative-free, injectable Jm Calderon MD Work Phone: [facility] Payers Date Payer Category Payer Unknown [id number] 2023 Unknown [id number] 2023 Private Health Insurance [facility] [place] [id number] 1961 Unknown [id number] [id number] 1961 Unknown [id number]. [id number] 1961 Unknown [id number]. [id number] 1961 Unknown [id number]. 2.647 1961 Unknown [id number]. [id number] 1961 Unknown [id number]. [id number] 1961 Unknown [id number]. [id number] 1961 Unknown [id number]. [id number] 1961 Unknown [id number] [id number] 1959 Unknown [id number] 1959 Unknown [id number] Self-pay Self Pay [id number] Unknown Self Pay [id number] Social History Date Type Detail Facility [facility] Start: 07-15-1961 Sex Assigned At Female [facility] Start: 11-09-2023 End: 12-01-2023 Sex Assigned At [facility] Start: 11-08-2023 End: 12-01-2023 Tobacco smoking status NHIS Never smoked tobacco [facility] Start: 11-09-2023 End: 12-01-2023 History of Social function [facility] Start: 1960 Sex assigned at Not on file [facility] Start: 11-08-2023 Tobacco use and exposure Smokeless tobacco non-user [facility] Start: 11-11-2023 End: 01-12-2024 Alcoholic beverage intake Not Asked [employer] [facility] [employer] Has the [employer], [employer], oil, or water [employer] threatened to shut off services in your home in past 12Mo No [facility] (I/We) worried whekate er (my/our) food would run out before (I/we) got money to buy more. Never true [facility] In the past 12 month s, has lack of transportation kept you from medical appointments or from getting medications? Patient declined [facility] Start: 11-08-2023 Alcohol Comment occasional [facility] Medical Equipment Procedure Code Equipment Code Equipment Origin al Text Equipment Identifier Dates 1 each by Other route in the morning and 1 each at noon and 1 each in the evening. Start: 03-25-2023 Clinical Notes 05-23-2021 to 02-26-2024 Jm Calderon MD - 12/15/2023 1:10 PM Esme Montoya RCP - 11/16/2023 12:56 PM Zander Boucher MD - 11/16/2023 10:53 AM Rober Hernandez MD - 11/16/2023 9:35 AM EDT Note Date & Type Note Facility 02-26-2024 Note Intravesicular gemci tabine and Docetaxel given Pt. Denied s/s of UTI, dysuria, hematuria. Pt had new erickson placed today in Urology draining large amt. Clear yellow urine. Pt. Took a po Oxybutynin prior admit at home today Gemcitabine dwelled full 1 hour without issues. Docetaxel dwelled full one hour, no issues. Drained large amount clear yellow urine, then balloon deflated and erickson Catheter removed by RN. This was last of monthly Intravesicular treatments Pt. Scheduled for a cystoscopy 04-08-24 with Umesh Kaye. [facility] 02-26-2024 Note Niya Segal explainnataliia d the procedure to Ja Tavera and Ja L Octavio verbalized understanding. Ja Tavera was then placed on the exam table in Supine frog leg position, then prepped in sterile fashion using aseptic technique. A 14 fr. coude erickson catheter was inserted without complications, adequate urine return was achieved, then 10 ml of sterile water were used to inflate the balloon. Ja Tavera tolerated the procedure well. After erickson was in place, Ja Tavera was placed in a wheelchair, given her bag of personal belongings, then transported by 7991 down to the Infusion Center. 7991 then informed Infusion key account coordinator that Ja Tavera was ready for treatment. [facility] 01-29-2024 Note Niya Segal explainnataliia d the procedure to Ja Tavera and Ja L Octavio verbalized understanding. Ja Tavera was then placed on the exam table in Supine frog leg position, then prepped in sterile fashion using aseptic technique. A 14 fr. coude erickson catheter was inserted without complications, adequate urine return was achieved, then 10 ml of sterile water were used to inflate the balloon. Ja Tavera tolerated the procedure well. After erickson was in place, Ja Tavera was placed in a wheelchair, given her bag of personal belongings, then transported by [employer] down to the Infusion Center. 7991 then informed Infusion key account coordinator that Ja Tavera was ready for treatment. [facility] 12-25-2023 Note Leah Perez RN explained the procedure to Ja Tavera and Ja Tavera verbalized understanding. Ja Tavera was then placed on the exam table in Supine frog leg position, then prepped in sterile fashion using aseptic technique. A 14 fr. coude erickson catheter was inserted without complications, adequate urine return was achieved, then 10 ml of sterile water were used to inflate the balloon. Ja Tavera tolerated the procedure well. After erickson was in place, Ja Tavera was placed in a wheelchair, given her bag of personal belongings, then transported by Leah Perez RN down to the Infusion Center Leah Perez RN then informed Infusion key account coordinator that Ja Tavera was ready for treatment. [facility] 12-15-2023 History of Present illness Narrative Ja Tavera is a 63 y.o. female Jm Calderon MD presents with chief complaint of Diabetes Mellitus and Follow-up HPI: Interim History 11/2023 Follow up visit on 12/15/2023. Blood sugar in our office 203, A1c on 6.7, currently on Lantus 56, Humalog 10 units mainly on dinner and Tradjenta 5 mg once a day. Interim History 08/2023 Follow up visit on 09/15/2023. Blood sugar in our office 135. CGM, 1 in low range, 65 in good range, 35 in high range, average 161, currently on Lantus 60, Humalog 10 units mainly on dinner and Tradjenta 5 mg once a day. She has had blood work done, but I do not have the result in [place]. HPI: 07/2023 New patient sent from Dr. Alejandro Villagran for uncontrolled diabetes, A1c in our office of 7.6, blood sugar 131. She has diabetes for almost 2 years. She has kidney transplant in 2006. She has one kidney before when she was young. CGM FreeStyle 3, 1% low range, 59 in good range, 40 in high range, average 173. Currently on Lantus only 7 units in the morning. She is on prednisone 10 mg in the morning and blood sugar is mainly high at dinner time. PCP office tried to do Jardiance, but insurance does not cover. I am not sure if done or not yet. SUBJECTIVE: MEDICATIONS: Current Outpatient Medications Medication Instructions alendronate (Fosamax) 35 MG tablet 1 tablet, Weekly apixaban (Eliquis) 5 MG tablet 1 tablet, 2 times daily atorvastatin (LIPITOR) 40 mg, Nightly bimatoprost (Lumigan) 0.01 % ophthalmic solution 1 drop, Nightly Calcium Citrate-Vitamin D 315-5 MG-MCG tablet 1 tablet, Daily RT cycloSPORINE (Restasis) 0.05 % ophthalmic emulsion 1 drop, Every 12 hours everolimus (Zortress) 0.75 MG tablet 1 tablet, 2 times daily famotidine (Pepcid) 20 MG tablet 1 tablet, 2 times daily febuxostat (Uloric) 40 MG tablet 1 tablet, Daily in the morning Ferrous Sulfate (IRON PO) 1 tablet, Daily RT glucose blood (OneTouch Verio) test strip 1 each, 3 times daily levothyroxine (Synthroid, Levoxyl) 125 MCG tablet 1 tablet, Daily linaGLIPtin (Tradjenta) 5 MG tablet 1 tablet, Daily Loratadine 10 MG capsule 1 capsule, Daily magnesium oxide (MAG-OX) 400 mg, Nightly metoprolol tartrate (Lopressor) 25 MG tablet 1 tablet, 2 times daily omega-3 (Fish Oil) 1000 MG capsule 2 capsules, 2 times daily oxybutynin (DITROPAN) 5 mg, 3 times daily Polyethyl Glycol-Propyl Glycol 0.4-0.3 % solution 1 drop, Daily PRN predniSONE (Deltasone) 10 MG tablet 1 tablet, Daily sodium bicarbonate 650 MG tablet 1 tablet, 2 times daily tacrolimus (Prograf) 5 MG capsule 1 capsule, 2 times daily therapeutic multivitamin-minerals (Theragran-M) tablet 1 tablet, Daily Toujeo Max SoloStar 55 Units, Daily ALLERGIES: Allergies Allergen Reactions Aspirin Other Pt states she is allergic bc she is taking immunosuppressants meds that has a reaction to Asprin Cannot take due to renal transplant- not actually allergy Clopidogrel Other Pt states she is allergic bc she is taking immunosuppressants meds that has a reaction to plavix Ibuprofen Other Pt states she is allergic bc she is taking immunosuppressants meds that has a reaction to Ibuprofen Cannot take due to renal transplant- not actually allergy Amlodipine Rash Past Medical History: Diagnosis Date Arthritis CKD (chronic kidney disease), stage IV ([facility]) Current chronic use of systemic steroids GERD (gastroesophageal reflux disease) HTN (hypertension) ([facility]) Hyperuricemia Hypomagnesemia Hypothyroidism ([facility]) Kidney transplant status ([facility]) 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 ([facility]) Mixed hyperlipidemia ([facility]) Type 2 diabetes mellitus with hyperglycemia ([facility]) Vitamin D deficiency Past Surgical History: Procedure Laterality Date DILATION AND CURETTAGE OF UTERUS THYROIDECTOMY TONSILLECTOMY and adenoidectomy TRANSPLANT, KIDNEY, OPEN REVIEW OF SYMPTOMS: 14 POINT OF SYSTEM REVIEWED AND NEGATIVE OBJECTIVE: Constitutional: Afebrile @ home; no weakness or night sweats SKIN: No change in skin color; no itching, rash or lesions; no hair loss; HEENT: No HAs or injury; no dizziness; No difficulty with vision; no eye pain, discharge or lesions; no hearing loss or difficulty; no nasal discharge, NECK: No pain, limitation of motion, lumps or swollen glands RESP: No cough, wheezing or difficulty breathing. No CP with breathing; CARDIO: No CP , SOB or fatigue, No edema, palpitations or dyspnea with exertion GI: No N/V/D or abd. pain; good appetite with no recent change. No heart burn, liver or gallbladder disease; no rectal bleeding or pain : No urinary pain , frequency or odor. MUSCULOSKELETAL: No muscle pain or cramps; no extremity weakness.No joint pain, stiffness, swelling or limitation of movement NEUROLOGY: No H/O seizures, stroke or fainting. No weakness, tremors. Hematology: No bleeding problems or excessive bruising ENDOCRINE: No increase in hunger, thirst or urination; admits compliance to medical management plan Feet: numbness tingling , ulcers or skin break Lab Results Component Value Date HGBA1C 6.7 (H) 12/14/2023 HGBA1C 8.1 (H) 06/06/2023 HGBA1C 7.6 (H) 02/10/2023 Lab Results Component Value Date GLU 203 12/15/2023 GLU 193 (H) 12/14/2023 GLU 204 (H) 11/16/2023 Visit Vitals BP 118/78 Pulse 63 Resp 16 Ht 5' 6 Wt 168 lb BMI 27.12 kg/m Smoking Status Never BSA 1.88 m ASSESSMENT AND PLAN: Assessment/Plan Diagnoses and all orders for this visit: Type 2 diabetes mellitus with hyperglycemia, with long-term current use of insulin ([facility]) - POCT glucose manually resulted Will c/o lantus 56, Humalog 10 units dinner, Tradjenta 5 mg once a day. Insulin long-term use (CMS/HCC) Hyperlipemia, mixed ([facility]) Encounter for dietary consultation Diet and exercise reviewed with the patient Vitamin D deficiency Acquired hypothyroidism (CMS/HCC) skilled nursing current use of systemic steroids Kidney transplant status ([facility]) Follow up in about 6 months (around 06/14/2024). documented in this encounter [facility] 12-11-2023 Note Ja arrived to [facility] by wheelchair with erickson catheter intact, draining cloudy light yellow urine. She states burning with urination for one week, denies fevers. Contacted Dr. White's office, spoke with co-ordinator, Niya. Hold Gemcitabine/Docetaxel intravesicular treatment today, obtain urine for culture-done from erickson, and instruct Ja to pick-up Keflex and begin today, follow instructions. She states understanding. Rescheduled for 2 weeks. Melinda Worley RN [facility] 12-11-2023 Note Niya saavedra d the procedure to Ja Tavera and Ja Tavera verbalized understanding. Ja Tavera was then placed on the exam table in Supine frog leg position, then prepped in sterile fashion using aseptic technique. A 14 fr. coude erickson catheter was inserted without complications, adequate urine return was achieved, then 10 ml of sterile water were used to inflate the balloon. Ja Tavera tolerated the procedure well. After erickson was in place, Ja Tavera was placed in a wheelchair, given her bag of personal belongings, then transported by [id number] down to the Infusion Center. [id number] then informed [facility] key account coordinator that Ja Tavera was ready for treatment. [facility] 11-16-2023 History of Present illness Narrative Home Oxygen Evaluation Home Oxygen Evaluation completed. Patient is on 2 liters per minute via nasal cannula. Resting SpO2 = 95% Resting SpO2 on room air = 90% SpO2 on room air with exercise = 85% SpO2 on oxygen as above with exercise = 89% Nocturnal Oximetry with patient on room air is recommended is SpO2 is between 89% and 95% (requires additional order). ESME MALAVE RCP 12:57 PM Patient placed on 3L NC for home oxygen evaluation Renal Progress Note Patient : Ja Tavera; 63 y.o. Location: Attending: William Mcknight* Admit Date: 11/08/2023 Hospital Day: 8 Subjective: Oral intake good. Urine output good. Feels well. No shortness of breath or orthopnea. Continues on tacrolimus and prednisone and everolimus. Continues on 2 L of oxygen maintaining adequate oxygen saturation. Anticoagulation for PE continues. Possible discharge today. Tacrolimus level acceptable at 4.7. Creatinine down to baseline of 2.5. Labs today showed a sodium 138 potassium 3.9 chloride 108 bicarb 18 BUN 32 creatinine 2.5 calcium 9.0. Hemoglobin 11 white count 9.6 platelets 89 History reviewed Known history of ESRD from recurrent UTIs as a child and right nephrectomy as a child, status post 2 haplotype matched living donor kidney transplant at [facility] in 2006, baseline creatinine 2.5-2.7. Is being maintained on prednisone tacrolimus and everolimus. Prior to that was on MMF however she developed bladder cancer in June 2020 and was switched over to everolimus. She been following up with [facility] urology for bladder cancer and has been cancer free also continues to receive local chemotherapy. Came to [facility] hospital in September with shortness of breath. Thought to have a lingular pneumonia. VQ scan was negative at that time. Placed on antibiotics and discharged home. Dyspnea did not improve came back to the hospital at this time to [facility]. Echocardiogram showed right ventricular strain. Found to have a PE. Underwent mechanical thrombectomy. Creatinine is gone up slightly to 3.4 nephrology consulted for acute allograft dysfunction Outpatient Medications: Medications Prior to Admission: linagliptin (TRADJENTA) 5 MG tablet, Take 1 tablet by mouth daily Insulin Glargine, 2 Unit Dial, (TOUJEO MAX SOLOSTAR) 300 UNIT/ML SOPN, Inject 55 Units into the skin daily Injection Device for Insulin (INPEN [id number]) KURT, 10 Units by Does not apply route Daily with supper tacrolimus (PROGRAF) 5 MG capsule, Take 1 capsule by mouth 2 times daily Everolimus 0.75 MG TABS, Take 0.75 mg by mouth 2 times daily metoprolol tartrate (LOPRESSOR) 25 MG tablet, Take 1 tablet by mouth 2 times daily predniSONE (DELTASONE) 10 MG tablet, Take 1 tablet by mouth daily levothyroxine (SYNTHROID) 150 MCG tablet, Take 1 tablet by mouth Daily atorvastatin (LIPITOR) 40 MG tablet, Take 1 tablet by mouth nightly PM febuxostat (ULORIC) 40 MG TABS tablet, Take 1 tablet by mouth daily am famotidine (PEPCID) 20 MG tablet, Take 1 tablet by mouth 2 times daily am Multiple Vitamins-Minerals (THERAPEUTIC MULTIVITAMIN-MINERALS) tablet, Take 1 tablet by mouth daily Henderson-3 Fatty Acids (OMEGA-3 FISH OIL) 1000 MG CAPS, Take 2,000 mg by mouth in the morning and 2,000 mg in the evening. loratadine (CLARITIN) 10 MG capsule, Take 1 capsule by mouth daily magnesium oxide (MAG-OX) 400 (240 Mg) MG tablet, Take 1 tablet by mouth nightly PM bimatoprost (LUMIGAN) 0.01 % SOLN ophthalmic drops, Place 1 drop into both eyes nightly PM cycloSPORINE (RESTASIS) 0.05 % ophthalmic emulsion, 1 drop 2 times daily polyethyl glycol-propyl glycol 0.4-0.3 % (SYSTANE) 0.4-0.3 % ophthalmic solution, 1 drop as needed for Dry Eyes Current Medications: Scheduled Meds: apixaban 10 mg Oral BID Followed by [START ON 11/19/2023] apixaban 5 mg Oral BID sodium chloride flush 5-40 mL IntraVENous 2 times per day Everolimus 0.75 mg Oral BID predniSONE 10 mg Oral Daily tacrolimus 0.5 mg Oral BID cefTRIAXone (ROCEPHIN) IV 2,000 mg IntraVENous Q24H levothyroxine 125 mcg Oral Daily sodium chloride flush 5-40 mL IntraVENous 2 times per day insulin lispro 0-8 Units SubCUTAneous TID WC insulin lispro 0-4 Units SubCUTAneous Nightly atorvastatin 40 mg Oral Nightly metoprolol tartrate 25 mg Oral BID Continuous Infusions: sodium chloride sodium chloride dextrose PRN Meds: perflutren lipid microspheres, naloxone 0.4 mg in 10 mL sodium chloride syringe, sodium chloride flush, sodium chloride, sodium chloride flush, sodium chloride, ondansetron OR ondansetron, polyethylene glycol, acetaminophen OR acetaminophen, glucose, dextrose bolus OR dextrose bolus, glucagon (rDNA), dextrose Input/Output: No intake/output data recorded.. Patient Vitals for the past 96 hrs (Last 3 readings): Weight 11/16/23 0550 79.1 kg (174 lb 6.1 oz) 11/13/23 0600 78.4 kg (172 lb 13.5 oz) Vital Signs: Temperature: Temp: 98.1 F (36.7 C) TMax: Temp (24hrs), Av.1 F (36.7 C), Min:97.7 F (36.5 C), Max:98.4 F (36.9 C) Respirations: Respirations: 19 Pulse: Pulse: 66 BP: BP: (!) 148/87 BP Range: Systolic (24hrs), Av , Min:129 , Max:155 Diastolic (24hrs), Av, Min:81, Max:93 Physical Examination: General: AAO x 3, speaking in full sentences, no accessory muscle use. HEENT: Atraumatic, normocephalic, no throat congestion, moist mucosa. Eyes: Pupils equal, round and reactive to light, EOMI. Neck: No JVD, no thyromegaly, no lymphadenopathy. Chest: Bilateral vesicular breath sounds, no rales or wheezes. Cardiac: S1 S2 RR, no murmurs, gallops or rubs, JVP not raised. Abdomen: Soft, non-tender, no masses or organomegaly, BS audible. : No suprapubic or flank tenderness. Neuro: AAO x 3, No FND. SKIN: No rashes, good skin turgor. Extremities: No edema, palpable peripheral pulses, no calf tenderness. Labs: No results for input(s): WBC , RBC , HGB , HCT , MCV , MCH , MCHC , RDW , PLT , MPV in the last 72 hours. BMP: Recent Labs 11/14/23 0428 11/15/23 0254 11/16/23 0245 NA 141 138 138 K 4.4 4.2 3.9 CL 107 107 108* CO2 23 21 18* BUN 31* 32* 32* CREATININE 2.8* 2.5* 2.5* GLUCOSE 220* 168* 150* CALCIUM 8.9 8.8 9.0 Phosphorus: No results for input(s): PHOS in the last 72 hours. Magnesium: No results for input(s): MG in the last 72 hours. Albumin: No results for input(s): LABALBU in the last 72 hours. BNP: No results found for: BNP SAURABH: No results found for: SAURABH SPEP: Lab Results Component Value Date/Time ALBCAL 3.6 11/09/2023 12:38 PM ALBPCT 54 11/09/2023 12:38 PM A1PCT 7 11/09/2023 12:38 PM A2PCT 13 11/09/2023 12:38 PM BETAPCT 12 11/09/2023 12:38 PM GAMGLOB 0.9 11/09/2023 12:38 PM GGPCT 14 11/09/2023 12:38 PM PATH ELECTRONICALLY SIGNED. ANNE LIN M.D. 11/09/2023 12:38 PM UPEP: Lab Results Component Value Date/Time LABPE 11/09/2023 12:11 PM Elevated protein concentration. Most serum proteins are detected in this urine. Usually observed with markedly increased nonselective glomerular permaeabilty (severe glomerular disease) and/or contamination of urine with blood. A decrease in tubular function cannot be ruled out. C3: No results found for: C3 C4: No results found for: C4 MPO ANCA: No results found for: MPO PR3 ANCA: No results found for: PR3 Anti-GBM: No results found for: GBMABIGG Hep BsAg: No results found for: HEPBSAG Hep C AB: No results found for: HEPCAB Urinalysis/Chemistries: No results found for: NITRU , COLORU , PHUR , LABCAST , WBCUA , RBCUA , MUCUS , TRICHOMONAS , YEAST , BACTERIA , CLARITYU , SPECGRAV , LEUKOCYTESUR , UROBILINOGEN , BILIRUBINUR , BLOODU , GLUCOSEU , KETUA , AMORPHOUS Urine Sodium: No components found for: FABRICIO Urine Potassium: No results found for: KUR Urine Chloride: No results found for: CLUR Urine Osmolarity: No results found for: OSMOU Urine Protein: No components found for: TOTALPROTEIN , URINE Urine Creatinine: No results found for: LABCREA Urine Eosinophils: No components found for: UEOS Radiology: CXR: Assessment: 1. Acute allograft dysfunction likely ATN from contrast exposure and repeat circulating volume further aggravated by tacrolimus use and underlying pneumonia. Baseline 2.5-2.7 peaked up to 3.4 now down to 2.5 nonoliguric renal function at baseline 2. 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 Ta 3. Status post 2 haplotype match living donor kidney transplant in 2006 at [facility] being maintained on prednisone tacrolimus and everolimus 4. Acute PE status post mechanical thrombectomy 5. Bladder cancer follows up with [facility] urology 6. Metabolic acidosis Plan: 1. Start oral sodium bicarbonate 650 twice a day 2. Continue same dose of everolimus tacrolimus and prednisone 3. Stable for discharge from nephrology standpoint 4. Outpatient follow-up with her primary preload supervisor Dr. Kan/Cely 5. Anticoagulation per primary service 6. Nothing else to add nephrology signing off please call for questions Nutrition Please ensure that patient is on a renal diet/TF. Avoid nephrotoxic drugs/contrast exposure. We will continue to follow along with you. Images from the original note were not included. PULMONARY & CRITICAL CARE MEDICINE PROGRESS NOTE Patient: Ja Tavera Admit date: 11/08/2023 Primary Care Physician: Alejandro Villagran MD CODE Status: Full Code LOS: 8 SUBJECTIVE CHIEF COMPLAINT/REASON FOR CONSULT: No chief complaint on file. HISTORY OF PRESENT ILLNESS: The patient is a 63 y.o. female with history of diabetes, hypertension, bladder cancer, renal failure, s/p renal transplant; on immunosuppressive therapy (tacrolimus, everolimus and prednisone) of. Patient was recently hospitalized at [facility] with worsening shortness of breath. Patient was referred to ED by her primary care provider noted her to be hypoxemic. During evaluation D-dimer was elevated at 11.36, her CT chest showed subtle groundglass infiltrate involving the lingula. She was started on heparin infusion along with empiric Rocephin/azithromycin. Her VQ scan was reported to be negative after which heparin was discontinued. Patient was discharged on home O2 at 3 L/min. Patient now admitted with worsening shortness of breath. Patient was hypoxemic on presentation and was started on high flow nasal cannula. She denies any history of asthma, COPD or sleep apnea. However reports difficulty in laying flat in the bed. Lab evaluation in the ED shows WBC of 14, hemoglobin 15, creatinine of 2.7, bicarb 20, anion gap of 18, mildly elevated transaminases, proBNP is elevated at 24,370. Respiratory panel is negative. CT chest showed a pericardial effusion with minimal scattered fibrotic changes. Echocardiogram showed preserved LV function, EF 50%, severely thickened wall thickness, with septal flattening in systole, RV severely dilated with TAPSE of 1.1 and finding consistent with Summers sign. Moderate tricuspid regurgitation, RVSP 59 suggestive moderate pulmonary hypertension. Bubble study with agitated saline reported to be grade 2 positive (10-20 bubbles) suggestive of intracardiac shunting. On 11/10 patient had mechanical thrombectomy of pulmonary embolism by vascular surgery team. INTERVAL HISTORY: 11/16/2023 Patient no acute events noted overnight in chart. Patient is currently saturating well on 2 L. Doing better today, ambulating to the bathroom well. Patient has oxygen at home REVIEW OF SYSTEMS: Review of Systems Constitutional: Negative for fatigue and fever. HENT: Negative for voice change. Eyes: Negative for visual disturbance. Respiratory: Positive for shortness of breath. Negative for chest tightness. Gastrointestinal: Negative for abdominal pain, diarrhea and vomiting. Genitourinary: Negative for dysuria and urgency. Musculoskeletal: Negative for joint swelling. Allergic/Immunologic: Negative for environmental allergies and immunocompromised state. Neurological: Negative for weakness. Hematological: Negative for adenopathy. Does not bruise/bleed easily. Psychiatric/Behavioral: Negative for behavioral problems. OBJECTIVE VITAL SIGNS: LAST: BP (!) 148/87 Pulse 66 Temp 98.1 F (36.7 C) (Temporal) Resp 19 Ht 1.676 m (5' 5.98 ) Wt 79.1 kg (174 lb 6.1 oz) SpO2 94% BMI 28.16 kg/m 8-24 HR RANGE: TEMP Temp Av.1 F (36.7 C) Min: 97.7 F (36.5 C) Max: 98.4 F (36.9 C) BP Systolic (24hrs), Av , Min:129 , Max:155 Diastolic (24hrs), Av, Min:81, Max:93 PULSE Pulse Av Min: 58 Max: 72 RR Resp Av Min: 19 Max: 19 O2 SAT SpO2 Av % Min: 94 % Max: 94 % OXYGEN DELIVERY O2 Flow Rate (L/min) Av L/min Min: 2 L/min Max: 2 L/min PHYSICAL EXAM: Physical Exam Constitutional: General: She is awake. She is not in acute distress. Appearance: She is overweight. Interventions: Nasal cannula in place. Comments: Nasal cannula in place HENT: Head: Normocephalic and atraumatic. Eyes: General: No scleral icterus. Conjunctiva/sclera: Conjunctivae normal. Cardiovascular: Rate and Rhythm: Normal rate. Heart sounds: S1 normal and S2 normal. No murmur heard. Pulmonary: Breath sounds: Normal breath sounds and air entry. No rales. Abdominal: General: Bowel sounds are normal. Palpations: Abdomen is soft. Tenderness: There is no abdominal tenderness. Musculoskeletal: Right lower leg: No edema. Left lower leg: No edema. Skin: Coloration: Skin is not pale. Findings: No rash. Neurological: General: No focal deficit present. Mental Status: She is alert. DATA REVIEW CURRENT MEDICATIONS: Scheduled Meds: apixaban 10 mg Oral BID Followed by [START ON 11/19/2023] apixaban 5 mg Oral BID sodium chloride flush 5-40 mL IntraVENous 2 times per day Everolimus 0.75 mg Oral BID predniSONE 10 mg Oral Daily tacrolimus 0.5 mg Oral BID cefTRIAXone (ROCEPHIN) IV 2,000 mg IntraVENous Q24H levothyroxine 125 mcg Oral Daily sodium chloride flush 5-40 mL IntraVENous 2 times per day insulin lispro 0-8 Units SubCUTAneous TID WC insulin lispro 0-4 Units SubCUTAneous Nightly atorvastatin 40 mg Oral Nightly metoprolol tartrate 25 mg Oral BID Continuous Infusions: sodium chloride sodium chloride dextrose INPUT/OUTPUT: No intake/output data recorded. LABORATORY RESULTS: BLOOD GASES: No results for input(s): POCPH , POCPCO2 , POCPO2 , POCHCO3 , EDDL2ICG in the last 72 hours. COMPLETE BLOOD COUNTS: No results for input(s): WBC , HGB , HCT , MCV , PLT , MID , GRAN , LYMPHOPCT , MIDPERCENT , GRANULOCYTES , RBC , MCH , MCHC , RDW in the last 72 hours. Invalid input(s): LABLYMP , RELATIVEPERCENT C-REACTIVE PROTEIN: No results for input(s): CRP in the last 72 hours. LACTATE DEHYDROGENASE: No results for input(s): LDH in the last 72 hours. BASIC METABOLIC PROFILE: Recent Labs 11/14/23 0428 11/15/23 0254 11/16/23 0245 NA 141 138 138 K 4.4 4.2 3.9 CL 107 107 108* CO2 23 21 18* BUN 31* 32* 32* CREATININE 2.8* 2.5* 2.5* GLUCOSE 220* 168* 150* LIVER FUNCTION TESTS: No results for input(s): LABALBU , ALT , AST , GGT , ALKPHOS , BILITOT in the last 72 hours. Invalid input(s): PROT COAGULATION PROFILE: No results for input(s): INR , PROTIME , APTT in the last 72 hours. D-DIMER: No results for input(s): DDIMER in the last 72 hours. LACTIC ACID: No results for input(s): LACTA in the last 72 hours. CARDIAC ENZYMES: No results for input(s): CKTOTAL , CKMB , CKMBINDEX , TROPONINI in the last 72 hours. Invalid input(s): TROPONIN , HSTROP BRAIN NATRIURETIC PEPTIDE/PRO-BRAIN NATRURETIC PEPTIDE: No results for input(s): BNP , PROBNP in the last 72 hours. TRIGLYCERIDES: No results for input(s): TRIG in the last 72 hours. MICROBIOLOGY RESULTS: URINE CULTURE: No components found for: CURINE BLOOD CULTURE: No components found for: CBLOOD , CFUNGUSBL SPUTUM CULTURE: No components found for: CSPUTUM No results for input(s): SPUTUM , SPECDESC , SPECIAL , CULTURE , STATUS , ORG , CDIFFTOXPCR , MPNEUM , MPNEUG , CAMPYLOBPCR , SALMONELLAPC , SHIGAPCR , SHIGELLAPCR , LACTOQL in the last 72 hours. Invalid input(s): CURINE , CBLOOD , CFUNGUSBL PATHOLOGY RESULTS: RADIOLOGY REPORTS: Vascular duplex lower extremity venous bilateral Final Result Vascular duplex mesenteric artery Final Result XR CHEST PORTABLE Final Result No acute cardiopulmonary disease. CT CHEST WO CONTRAST Final Result 1. Pericardial effusion as described above. Maximal thickness of pericardial effusion is 1.38 cm. 2. COPD. 3. Minimal scattered fibrotic changes in the lungs as described above. No confluent pneumonia, confluent pulmonary atelectasis or pleural effusions. 4. Atrophic changes in the pancreas. 5. Markedly atrophic left kidney which is not completely visualized. Right kidney not visualized. ECHOCARDIOGRAM: Results for orders placed during the hospital encounter of 11/08/23 Echo (TTE) complete (PRN contrast/bubble/strain/3D) Interpretation Summary Left Ventricle: Preserved left ventricular systolic function. EF by visual approximation is 50%. Left ventricle size is normal. Severely increased wall thickness. Septal flattening in systole consistent with right ventricular pressure overload. Normal wall motion. Normal diastolic function. Right Ventricle: Right ventricle is severely dilated. Severely reduced systolic function. TAPSE is abnormal. TAPSE is 1.1 cm. Findings consistent with Summers's sign. Consider Pulm Embolism Rule Out if not done. Right Ventricle: Right ventricle is severely dilated. Severely reduced systolic function. TAPSE is abnormal. TAPSE is 1.1 cm. Findings consistent with Summers's sign. Aortic Valve: Trileaflet valve. Thickened cusps. Mitral Valve: Trace regurgitation. Tricuspid Valve: Moderate regurgitation. Moderately elevated RVSP, consistent with moderate pulmonary hypertension. The estimated RVSP is 59 mmHg. Interatrial Septum: Grade II Positive (10 to 20 bubbles). Agitated saline study was positive without provocation. Right Atrium: Right atrium is dilated. Pericardium: Trivial circumferential pericardial effusion present. IVC/SVC: IVC diameter is greater than 21 mm and decreases greater than 50% during inspiration; therefore the estimated right atrial pressure is intermediate (~8 mmHg). IVC is dilated. Image quality is technically difficult. ASSESSMENT AND PLAN PROBLEM LIST: Patient Active Problem List Diagnosis Acute hypoxic respiratory failure (HCC) Immunosuppression (HCC) Hypertension History of renal transplant Diabetes mellitus (HCC) Bladder cancer (HCC) DENIZ (acute kidney injury) (HCC) NSTEMI (non-ST elevated myocardial infarction) (HCC) Elevated d-dimer Leukocytosis Shortness of breath Pneumonia of both lungs due to infectious organism Biventricular congestive heart failure (HCC) Aortic atherosclerosis (HCC) Hypoglycemia Pericardial effusion Severe pulmonary hypertension (HCC) Cor pulmonale (HCC) Metabolic acidosis Arterial hypotension Pulmonary embolus (HCC) Debility CKD (chronic kidney disease) stage 4, GFR 15-29 ml/min (HCC) ASSESSMENT: Acute hypoxic respiratory failure, Acute PE with cor pulmonale - post mechanical thrombectomy CAP Right peroneal vein DVT Positive bubble study with agitated saline, suggestive intra-atrial stenting Mild pericardial effusion Acute kidney injury History of renal transplant; on immunosuppressive therapy Recent hospitalization at [facility] for pneumonia Essential hypertension Diabetes mellitus Obesity Suspected sleep apnea Bladder cancer PLAN: I personally interviewed/examined the patient; reviewed interval history, interpreted all available radiographic and laboratory data at the time of service. Home o2 eval Eliquis life long Follow up in 4-6 weeks in clinic Echo in 3 months and vq scan in 6 months Okay to discharge from pulmonology standpoint. Stephan Fields MD Pulmonary and Critical Care Medicine 11/16/2023, 9:36 AM This note is created with the assistance of a speech recognition program. While intending to generate a document that actually reflects the content of the visit, the document can still have some errors including those of syntax and sound-alike substitutions which may escape proof reading. It such instances, actual meaning can be extrapolated by contextual diversion. Attending Physician Statement I have discussed the care of Ja Tavera, including pertinent history and exam findings with the resident. I have reviewed the [place] elements of all parts of the encounter with the resident. I have seen and examined the patient with the resident. I agree with the assessment and plan and status of the problem list as documented. I saw the patient during around today, chart reviewed overnight events noted. According patient she is doing better she has mild cough denies chronic cough does not have wheezing denies taking any inhalers at home. She does not complain of pleuritic pain and does not complain of hemoptysis. She is been hemodynamically stable. She is able to ambulate to bathroom she is on 2 L nasal cannula and maintaining saturation at rest between 94% and 96%. Have reviewed the echocardiogram on admission shows severe RV dilatation Summers sign. Patient had VQ scan which was negative apparently in history of [place] in late September. She likely have subacute pulm embolism difficult to determine if she has CTEPH as VQ scan was reported -3 to 4 weeks ago although she does have pulm embolism. Patient is currently on Eliquis 10 mg twice daily and then after 1 week will need 5 mg twice daily as mentioned before lifelong anticoagulation. She will need 2D echocardiogram in 3 months to see her right heart function and dilatation after she is on anticoagulation for 3 months. Patient will need home O2 patient was recently in yesterday of [place] and she was discharged on home O2 she will continue to need home O2 because of hypoxia and pulmonary hypertension and severe RV dilatation. Okay to discharge from pulmonary standpoint Discussed with primary service. Please note that this chart was generated using voice recognition [employer] dictation software. Although every effort was made to ensure the accuracy of this automated bread baker, some errors in bread baker may have occurred. Rober Alegria MD 11/16/2023 12:14 PM Images from the original note were not included. PULMONARY & CRITICAL CARE MEDICINE PROGRESS NOTE Patient: Ja Tavera Admit date: 11/08/2023 Primary Care Physician: Alejandro Villagran MD CODE Status: Full Code LOS: 7 SUBJECTIVE CHIEF COMPLAINT/REASON FOR CONSULT: No chief complaint on file. HISTORY OF PRESENT ILLNESS: The patient is a 63 y.o. female with history of diabetes, hypertension, bladder cancer, renal failure, s/p renal transplant; on immunosuppressive therapy (tacrolimus, everolimus and prednisone) of. Patient was recently hospitalized at [facility] with worsening shortness of breath. Patient was referred to ED by her primary care provider noted her to be hypoxemic. During evaluation D-dimer was elevated at 11.36, her CT chest showed subtle groundglass infiltrate involving the lingula. She was started on heparin infusion along with empiric Rocephin/azithromycin. Her VQ scan was reported to be negative after which heparin was discontinued. Patient was discharged on home O2 at 3 L/min. Patient now admitted with worsening shortness of breath. Patient was hypoxemic on presentation and was started on high flow nasal cannula. She denies any history of asthma, COPD or sleep apnea. However reports difficulty in laying flat in the bed. Lab evaluation in the ED shows WBC of 14, hemoglobin 15, creatinine of 2.7, bicarb 20, anion gap of 18, mildly elevated transaminases, proBNP is elevated at 24,370. Respiratory panel is negative. CT chest showed a pericardial effusion with minimal scattered fibrotic changes. Echocardiogram showed preserved LV function, EF 50%, severely thickened wall thickness, with septal flattening in systole, RV severely dilated with TAPSE of 1.1 and finding consistent with Summers sign. Moderate tricuspid regurgitation, RVSP 59 suggestive moderate pulmonary hypertension. Bubble study with agitated saline reported to be grade 2 positive (10-20 bubbles) suggestive of intracardiac shunting. On 11/10 patient had mechanical thrombectomy of pulmonary embolism by vascular surgery team. INTERVAL HISTORY: 11/15/2023 No acute events On 3 l Sob with ex No bleeding REVIEW OF SYSTEMS: Review of Systems Constitutional: Positive for fatigue. Negative for fever. HENT: Negative for voice change. Eyes: Negative for visual disturbance. Respiratory: Positive for shortness of breath. Negative for chest tightness. Gastrointestinal: Negative for abdominal pain, diarrhea and vomiting. Genitourinary: Negative for dysuria and urgency. Musculoskeletal: Negative for joint swelling. Allergic/Immunologic: Negative for environmental allergies and immunocompromised state. Neurological: Positive for weakness. Hematological: Negative for adenopathy. Does not bruise/bleed easily. Psychiatric/Behavioral: Negative for behavioral problems. OBJECTIVE VITAL SIGNS: LAST: BP (!) 155/93 Pulse 67 Temp 98.3 F (36.8 C) (Oral) Resp 29 Ht 1.676 m (5' 5.98 ) Wt 78.4 kg (172 lb 13.5 oz) SpO2 99% BMI 27.91 kg/m 8-24 HR RANGE: TEMP Temp Av.2 F (36.8 C) Min: 98 F (36.7 C) Max: 98.3 F (36.8 C) BP Systolic (24hrs), Av , Min:120 , Max:155 Diastolic (24hrs), Av, Min:77, Max:93 PULSE Pulse Av.4 Min: 55 Max: 85 RR Resp Av.5 Min: 18 Max: 29 O2 SAT SpO2 Av % Min: 99 % Max: 99 % OXYGEN DELIVERY O2 Flow Rate (L/min) Av.5 L/min Min: 3 L/min Max: 4 L/min PHYSICAL EXAM: Physical Exam Constitutional: General: She is awake. She is not in acute distress. Appearance: She is overweight. Interventions: Nasal cannula in place. Comments: Nasal cannula in place HENT: Head: Normocephalic and atraumatic. Eyes: General: No scleral icterus. Conjunctiva/sclera: Conjunctivae normal. Cardiovascular: Rate and Rhythm: Normal rate. Heart sounds: S1 normal and S2 normal. No murmur heard. Pulmonary: Breath sounds: Normal breath sounds and air entry. No rales. Abdominal: General: Bowel sounds are normal. Palpations: Abdomen is soft. Tenderness: There is no abdominal tenderness. Musculoskeletal: Right lower leg: No edema. Left lower leg: No edema. Skin: Coloration: Skin is not pale. Findings: No rash. Neurological: General: No focal deficit present. Mental Status: She is alert. DATA REVIEW CURRENT MEDICATIONS: Scheduled Meds: apixaban 10 mg Oral BID Followed by [START ON 11/19/2023] apixaban 5 mg Oral BID sodium chloride flush 5-40 mL IntraVENous 2 times per day Everolimus 0.75 mg Oral BID predniSONE 10 mg Oral Daily tacrolimus 0.5 mg Oral BID cefTRIAXone (ROCEPHIN) IV 2,000 mg IntraVENous Q24H levothyroxine 125 mcg Oral Daily sodium chloride flush 5-40 mL IntraVENous 2 times per day insulin lispro 0-8 Units SubCUTAneous TID WC insulin lispro 0-4 Units SubCUTAneous Nightly atorvastatin 40 mg Oral Nightly metoprolol tartrate 25 mg Oral BID Continuous Infusions: sodium chloride sodium chloride dextrose INPUT/OUTPUT: No intake/output data recorded. LABORATORY RESULTS: BLOOD GASES: No results for input(s): POCPH , POCPCO2 , POCPO2 , POCHCO3 , RCKO4AEG in the last 72 hours. COMPLETE BLOOD COUNTS: No results for input(s): WBC , HGB , HCT , MCV , PLT , MID , GRAN , LYMPHOPCT , MIDPERCENT , GRANULOCYTES , RBC , MCH , MCHC , RDW in the last 72 hours. Invalid input(s): LABLYMP , RELATIVEPERCENT C-REACTIVE PROTEIN: No results for input(s): CRP in the last 72 hours. LACTATE DEHYDROGENASE: No results for input(s): LDH in the last 72 hours. BASIC METABOLIC PROFILE: Recent Labs 11/13/23 0403 11/14/23 0428 11/15/23 0254 NA 137 141 138 K 4.0 4.4 4.2 CL 103 107 107 CO2 23 23 21 BUN 26* 31* 32* CREATININE 2.8* 2.8* 2.5* GLUCOSE 185* 220* 168* MG 2.0 -- -- LIVER FUNCTION TESTS: No results for input(s): LABALBU , ALT , AST , GGT , ALKPHOS , BILITOT in the last 72 hours. Invalid input(s): PROT COAGULATION PROFILE: No results for input(s): INR , PROTIME , APTT in the last 72 hours. D-DIMER: No results for input(s): DDIMER in the last 72 hours. LACTIC ACID: No results for input(s): LACTA in the last 72 hours. CARDIAC ENZYMES: No results for input(s): CKTOTAL , CKMB , CKMBINDEX , TROPONINI in the last 72 hours. Invalid input(s): TROPONIN , HSTROP BRAIN NATRIURETIC PEPTIDE/PRO-BRAIN NATRURETIC PEPTIDE: No results for input(s): BNP , PROBNP in the last 72 hours. TRIGLYCERIDES: No results for input(s): TRIG in the last 72 hours. MICROBIOLOGY RESULTS: URINE CULTURE: No components found for: CURINE BLOOD CULTURE: No components found for: CBLOOD , CFUNGUSBL SPUTUM CULTURE: No components found for: CSPUTUM No results for input(s): SPUTUM , SPECDESC , SPECIAL , CULTURE , STATUS , ORG , CDIFFTOXPCR , MPNEUM , MPNEUG , CAMPYLOBPCR , SALMONELLAPC , SHIGAPCR , SHIGELLAPCR , LACTOQL in the last 72 hours. Invalid input(s): CURINE , CBLOOD , CFUNGUSBL PATHOLOGY RESULTS: RADIOLOGY REPORTS: Vascular duplex lower extremity venous bilateral Final Result Vascular duplex mesenteric artery Final Result XR CHEST PORTABLE Final Result No acute cardiopulmonary disease. CT CHEST WO CONTRAST Final Result 1. Pericardial effusion as described above. Maximal thickness of pericardial effusion is 1.38 cm. 2. COPD. 3. Minimal scattered fibrotic changes in the lungs as described above. No confluent pneumonia, confluent pulmonary atelectasis or pleural effusions. 4. Atrophic changes in the pancreas. 5. Markedly atrophic left kidney which is not completely visualized. Right kidney not visualized. ECHOCARDIOGRAM: Results for orders placed during the hospital encounter of 11/08/23 Echo (TTE) complete (PRN contrast/bubble/strain/3D) Interpretation Summary Left Ventricle: Preserved left ventricular systolic function. EF by visual approximation is 50%. Left ventricle size is normal. Severely increased wall thickness. Septal flattening in systole consistent with right ventricular pressure overload. Normal wall motion. Normal diastolic function. Right Ventricle: Right ventricle is severely dilated. Severely reduced systolic function. TAPSE is abnormal. TAPSE is 1.1 cm. Findings consistent with Summers's sign. Consider Pulm Embolism Rule Out if not done. Right Ventricle: Right ventricle is severely dilated. Severely reduced systolic function. TAPSE is abnormal. TAPSE is 1.1 cm. Findings consistent with Summers's sign. Aortic Valve: Trileaflet valve. Thickened cusps. Mitral Valve: Trace regurgitation. Tricuspid Valve: Moderate regurgitation. Moderately elevated RVSP, consistent with moderate pulmonary hypertension. The estimated RVSP is 59 mmHg. Interatrial Septum: Grade II Positive (10 to 20 bubbles). Agitated saline study was positive without provocation. Right Atrium: Right atrium is dilated. Pericardium: Trivial circumferential pericardial effusion present. IVC/SVC: IVC diameter is greater than 21 mm and decreases greater than 50% during inspiration; therefore the estimated right atrial pressure is intermediate (~8 mmHg). IVC is dilated. Image quality is technically difficult. ASSESSMENT AND PLAN PROBLEM LIST: Patient Active Problem List Diagnosis Acute hypoxic respiratory failure (HCC) Immunosuppression (HCC) Hypertension History of renal transplant Diabetes mellitus (HCC) Bladder cancer (HCC) DENIZ (acute kidney injury) (HCC) NSTEMI (non-ST elevated myocardial infarction) (HCC) Elevated d-dimer Leukocytosis Shortness of breath Pneumonia of both lungs due to infectious organism Biventricular congestive heart failure (HCC) Aortic atherosclerosis (HCC) Hypoglycemia Pericardial effusion Severe pulmonary hypertension (HCC) Cor pulmonale (HCC) Metabolic acidosis Arterial hypotension Pulmonary embolus (HCC) Debility CKD (chronic kidney disease) stage 4, GFR 15-29 ml/min ([facility]) ASSESSMENT: Acute hypoxic respiratory failure, Acute PE with cor pulmonale - post mechanical thrombectomy CAP Right peroneal vein DVT Positive bubble study with agitated saline, suggestive intra-atrial stenting Mild pericardial effusion Acute kidney injury History of renal transplant; on immunosuppressive therapy Recent hospitalization at [facility] for pneumonia Essential hypertension Diabetes mellitus Obesity Suspected sleep apnea Bladder cancer PLAN: I personally interviewed/examined the patient; reviewed interval history, interpreted all available radiographic and laboratory data at the time of service. Home o2 shaheed Sood life long Follow up in 4-6 weeks in clinic Echo and vq scan in 6 months Ok to dc from pulmonary standpoint STEVEN JONES MD Pulmonary and Critical Care Medicine 11/15/2023, 2:51 PM This note is created with the assistance of a speech recognition program. While intending to generate a document that actually reflects the content of the visit, the document can still have some errors including those of syntax and sound-alike substitutions which may escape proof reading. It such instances, actual meaning can be extrapolated by contextual diversion. Images from the original note were not included. [facility] Office: [phone] Tonny Boyle DO, Henri Martin DO, Jarred Peña DO, Paras Shankar DO, Curtis Sprague MD, Samia Allen MD, Denise Oneal MD, Fatou Robb MD, Juvencio Chacon MD, Melany Sherman MD, Todd Boyle MD, Lashaun Womack DO, Sandy Ma MD, Reilly Miller MD, Brigido Boyle DO, Kaylee Watson MD, Kendell Patterson DO, Alpa White MD, Venessa Jones MD, Elba Garcias MD, Sandra Turner MD, Jarvis Herbert MD, Netta Wall MD, Sue Spencer MD, William Mcknight MD, Harsh Contreras MD, Dara Mitchell MD, Alejandro Arroyo DO, Douglas Ware DO, Bora Ashton DO, Maikel Varma MD, Cindy Daley CNP, Mireille Jaeger CNP, Alejandro Aly CNP, Lynn Reyes DNP, Marilyn Aldana, INDIRA, Yessi Choi, INDIRA, Magalys Bartlett CNP, Saba Skelton CNP, RAMOS DentC, Lizzie Estes PA-C, Sena Patton, INDIRA, Iker Car, OFFICE ASSOCIATE, Estee Cueto, OFFICE ASSOCIATE, Bonnie Bush, OFFICE ASSOCIATE, Carine Kwan, OFFICE ASSOCIATE, Oksana Perez, ASHLEY, Merlene Castro, INDIRA, Lilliam Conte, INDIRA, Krystal Howard, OFFICE ASSOCIATE [facility] IN-PATIENT SERVICE [facility] Progress Note 11/15/2023 11:00 AM Name: Ja Tavera Acct: [id number] Room: [address] [place] [address] Day: 7 Admit Date: 11/08/2023 7:47 PM PCP: Alejandro Villagran MD Code Status: Full Code Subjective: Patient was seen and examined in no acute distress, was on 4 L nasal cannula at time of my evaluation and will wean off as tolerated No acute event overnight Lab vital sign consult note reviewed 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 Patient was recently discharged from [facility] where she was treated for pneumonia after chest x-ray showed bilateral groundglass opacities. At that time VQ scan was negative for PE. On admission, patient underwent echocardiogram which showed an ejection fraction of 50% with right ventricular dilatation and severely reduced systolic function concerning for Summers sign. She also had moderate tricuspid regurgitation along with moderate pulmonary pretension with RVSP of 59 and an IVC diameter 21 mmHg. Patient was admitted seen by vascular surgery due to concerns for pulm embolism. She does have a history of renal transplant and was seen by nephrology as well Medications: Allergies: Allergies Allergen Reactions Aspirin Other (See Comments) Pt states she is allergic bc she is taking immunosuppressants meds that has a reaction to Asprin Ibuprofen Other (See Comments) Pt states she is allergic bc she is taking immunosuppressants meds that has a reaction to Ibuprofen Plavix [Clopidogrel] Other (See Comments) Pt states she is allergic bc she is taking immunosuppressants meds that has a reaction to plavix Amlodipine Rash Current Meds: Scheduled Meds: apixaban 10 mg Oral BID Followed by [START ON 11/19/2023] apixaban 5 mg Oral BID sodium chloride flush 5-40 mL IntraVENous 2 times per day Everolimus 0.75 mg Oral BID predniSONE 10 mg Oral Daily tacrolimus 0.5 mg Oral BID cefTRIAXone (ROCEPHIN) IV 2,000 mg IntraVENous Q24H levothyroxine 125 mcg Oral Daily sodium chloride flush 5-40 mL IntraVENous 2 times per day insulin lispro 0-8 Units SubCUTAneous TID WC insulin lispro 0-4 Units SubCUTAneous Nightly atorvastatin 40 mg Oral Nightly metoprolol tartrate 25 mg Oral BID Continuous Infusions: sodium chloride sodium chloride dextrose PRN Meds: perflutren lipid microspheres, naloxone 0.4 mg in 10 mL sodium chloride syringe, sodium chloride flush, sodium chloride, sodium chloride flush, sodium chloride, ondansetron OR ondansetron, polyethylene glycol, acetaminophen OR acetaminophen, glucose, dextrose bolus OR dextrose bolus, glucagon (rDNA), dextrose Data: Vitals: BP (!) 142/85 Pulse 85 Temp 98.1 F (36.7 C) (Oral) Resp 18 Ht 1.676 m (5' 5.98 ) Wt 78.4 kg (172 lb 13.5 oz) SpO2 99% BMI 27.91 kg/m Temp (24hrs), Av.1 F (36.7 C), Min:98 F (36.7 C), Max:98.3 F (36.8 C) Recent Labs 11/14/23 1226 11/14/23 1553 11/14/23 1953 11/15/23 0811 POCGLU 275* 305* 272* 153* I/O (24Hr): No intake or output data in the 24 hours ending 11/15/23 1100 Labs: Hematology: No results for input(s): WBC , RBC , HGB , HCT , MCV , MCH , MCHC , RDW , PLT , MPV , SEDRATE , CRP , INR , DDIMER , DZ2HPGSE , LABABSO in the last 72 hours. Invalid input(s): PT Chemistry: Recent Labs 11/13/23 0403 11/14/23 0428 11/15/23 0254 NA 137 141 138 K 4.0 4.4 4.2 CL 103 107 107 CO2 23 23 21 GLUCOSE 185* 220* 168* BUN 26* 31* 32* CREATININE 2.8* 2.8* 2.5* MG 2.0 -- -- ANIONGAP 11 11 10 LABGLOM 18* 19* 21* CALCIUM 8.0* 8.9 8.8 Recent Labs 11/13/23 2030 11/14/23 0808 11/14/23 1226 11/14/23 1553 11/14/23 1953 11/15/23 0811 POCGLU 270* 176* 275* 305* 272* 153* ABG: Lab Results Component Value Date/Time POCPH 7.458 11/09/2023 06:22 AM POCPCO2 29.6 11/09/2023 06:22 AM POCPO2 84.8 11/09/2023 06:22 AM POCHCO3 21.0 11/09/2023 06:22 AM NBEA 1.7 11/09/2023 06:22 AM AITQ3ICS 97.1 11/09/2023 06:22 AM FIO2 INFORMATION NOT PROVIDED 11/09/2023 11:11 AM Lab Results Component Value Date/Time SPECIAL R ARM 1ML 11/08/2023 10:05 PM Lab Results Component Value Date/Time CULTURE NO GROWTH 5 DAYS 11/08/2023 10:05 PM Radiology: CT CHEST WO CONTRAST Result Date: 11/08/2023 1. Pericardial effusion as described above. Maximal thickness of pericardial effusion is 1.38 cm. 2. COPD. 3. Minimal scattered fibrotic changes in the lungs as described above. No confluent pneumonia, confluent pulmonary atelectasis or pleural effusions. 4. Atrophic changes in the pancreas. 5. Markedly atrophic left kidney which is not completely visualized. Right kidney not visualized. Physical Examination: General appearance: alert, cooperative and uncomfortable appearing female Mental Status: oriented to person, place and time and normal affect Lungs: Diminished breath sounds at the bases bilaterally, normal effort, on high flow nasal cannula Heart: regular rate and rhythm, no murmur Abdomen: soft, nontender, nondistended, normal bowel sounds, no masses, hepatomegaly, splenomegaly Extremities: no edema, redness, tenderness in the calves Skin: no gross lesions, rashes, induration Assessment: Hospital Problems Last Modified POA * (Principal) Acute hypoxic respiratory failure (HCC) 11/08/2023 Yes Immunosuppression (HCC) 11/08/2023 Yes Hypertension 11/08/2023 Yes History of renal transplant 11/08/2023 Yes Diabetes mellitus (HCC) 11/08/2023 Yes Bladder cancer (HCC) 11/08/2023 Yes DENIZ (acute kidney injury) (HCC) 11/08/2023 Yes NSTEMI (non-ST elevated myocardial infarction) (HCC) 11/08/2023 Yes Elevated d-dimer 11/08/2023 Yes Leukocytosis 11/08/2023 Yes Shortness of breath 11/09/2023 Yes Pneumonia of both lungs due to infectious organism 11/09/2023 Yes Biventricular congestive heart failure (HCC) 11/09/2023 Yes Aortic atherosclerosis (HCC) 11/09/2023 Yes Hypoglycemia 11/09/2023 Yes Pericardial effusion 11/09/2023 Yes Severe pulmonary hypertension (HCC) 11/11/2023 Yes Cor pulmonale (HCC) 11/09/2023 Yes Metabolic acidosis 11/09/2023 Yes Arterial hypotension 11/09/2023 Yes Pulmonary embolus (HCC) 11/10/2023 Yes Debility 11/13/2023 Yes CKD (chronic kidney disease) stage 4, GFR 15-29 ml/min ([facility]) 11/13/2023 Yes Plan: Acute hypoxic respiratory failure requiring oxygen supplement, continue with oxygen supplement wean off as tolerated ,symptoms could be due to pneumonia versus pulmonary embolism, 2D echo with Summers sign concerning for PE, was on heparin then was switch to oral Eliquis, vascular and pulmonology is following appreciate input, ,S/P thrombectomy of pulmonary artery 11/10/2023 , continue IV ceftriaxone end of treatment 11-15-2023, appreciate ID input Hypotension patient blood pressure remains soft however maps remained above 65, will continue to monitor Acute kidney injury on chronic kidney disease continue to monitor BMP, avoid nephrotoxic agent, nephrology is following appreciate input S/p renal transplant on tacrolimus everolimus and prednisone continue Diabetes continue with insulin sliding scale diabetic diet and glucose check Bladder cancer on IV chemotherapy, patient to follow-up with oncology Abnormal TSH TSH 0.03, T4: 2. Decrease dose of synthroid Disposition pending PT-OT evaluation Medical Decision Making: High William Mcknight MD 11/15/2023 11:00 AM Nephrology Progress Note Patient: Ja Tavera; 63 y.o. Location: Attending: William Mcknight* Admit Date: 11/08/2023 Hospital Day: 7 Subjective Known history of ESRD from recurrent UTIs as a child and right nephrectomy as a child, status post 2 haplotype matched living donor kidney transplant at [facility] in 2006, baseline creatinine 2.5-2.7. Is being maintained on prednisone tacrolimus and everolimus. Prior to that was on MMF however she developed bladder cancer in June 2020 and was switched over to everolimus. She been following up with [facility] urology for bladder cancer and has been cancer free also continues to receive local chemotherapy. Came to [facility] hospital in September with shortness of breath. Thought to have a lingular pneumonia. VQ scan was negative at that time. Placed on antibiotics and discharged home. Dyspnea did not improve came back to the hospital at this time to [facility]. Echocardiogram showed right ventricular strain. Found to have a PE. Underwent mechanical thrombectomy. Creatinine is gone up slightly to 3.4 nephrology consulted for acute allograft dysfunction Patient seen and evaluated in room, no acute events overnight Vital signs stable, continues to have difficulty with O2 weaning Renal function continues to improve, creatinine currently 2.5 down from 2.8 yesterday UOP not accurate as patent has been going to the bathroom Off diuretic therapy Continues on everolimus, Prograf and prednisone Recent Labs 11/13/23 0403 11/14/23 0428 11/15/23 0254 NA 137 141 138 K 4.0 4.4 4.2 CL 103 107 107 CO2 23 23 21 BUN 26* 31* 32* CREATININE 2.8* 2.8* 2.5* GLUCOSE 185* 220* 168* CALCIUM 8.0* 8.9 8.8 Objective VS: BP 132/88 Pulse 62 Temp 98 F (36.7 C) (Oral) Resp 18 Ht 1.676 m (5' 5.98 ) Wt 78.4 kg (172 lb 13.5 oz) SpO2 99% BMI 27.91 kg/m MAXIMUM TEMPERATURE OVER 24 HRS: Temp (24hrs), Av.2 F (36.8 C), Min:98 F (36.7 C), Max:98.6 F (37 C) 24 HR BLOOD PRESSURE RANGE: Systolic (24hrs), Av , Min:120 , Max:146 ; Diastolic (24hrs), Av, Min:77, Max:90 24 HR INTAKE/OUTPUT: No intake or output data in the 24 hours ending 11/15/23 0640 WEIGHT: Patient Vitals for the past 96 hrs (Last 3 readings): Weight 11/13/23 0600 78.4 kg (172 lb 13.5 oz) 11/12/23 0552 76.4 kg (168 lb 6.9 oz) Current Medications Scheduled Meds: apixaban 10 mg Oral BID Followed by [START ON 11/19/2023] apixaban 5 mg Oral BID sodium chloride flush 5-40 mL IntraVENous 2 times per day Everolimus 0.75 mg Oral BID predniSONE 10 mg Oral Daily tacrolimus 0.5 mg Oral BID cefTRIAXone (ROCEPHIN) IV 2,000 mg IntraVENous Q24H levothyroxine 125 mcg Oral Daily sodium chloride flush 5-40 mL IntraVENous 2 times per day insulin lispro 0-8 Units SubCUTAneous TID WC insulin lispro 0-4 Units SubCUTAneous Nightly atorvastatin 40 mg Oral Nightly metoprolol tartrate 25 mg Oral BID Continuous Infusions: sodium chloride sodium chloride dextrose PRN Meds: perflutren lipid microspheres, naloxone 0.4 mg in 10 mL sodium chloride syringe, sodium chloride flush, sodium chloride, sodium chloride flush, sodium chloride, ondansetron OR ondansetron, polyethylene glycol, acetaminophen OR acetaminophen, glucose, dextrose bolus OR dextrose bolus, glucagon (rDNA), dextrose Physical Examination General: AAO x 3, speaking in full sentences, no accessory muscle use. Chest: Bilateral vesicular breath sounds, no rales or wheezes. Cardiac: S1 S2 RR, no murmurs, gallops or rubs, JVP not raised. Abdomen: Soft, non-tender, non distended, BS audible. SKIN: No rashes, good skin turgor. Extremities: No edema, no clubbing, No cyanosis Neuro: AAO x 3, No FND. Labs BMP: Recent Labs 11/13/23 0403 11/14/23 0428 11/15/23 0254 NA 137 141 138 K 4.0 4.4 4.2 CL 103 107 107 CO2 23 23 21 BUN 26* 31* 32* CREATININE 2.8* 2.8* 2.5* GLUCOSE 185* 220* 168* CALCIUM 8.0* 8.9 8.8 Magnesium: Recent Labs 11/13/23 0403 MG 2.0 Urinalysis/Chemistries No results found for: NITRU , COLORU , PHUR , LABCAST , WBCUA , RBCUA , MUCUS , TRICHOMONAS , YEAST , BACTERIA , CLARITYU , SPECGRAV , LEUKOCYTESUR , UROBILINOGEN , BILIRUBINUR , BLOODU , GLUCOSEU , KETUA , AMORPHOUS Radiology Echo (TTE) complete (PRN contrast/bubble/strain/3D) Addendum Date: 11/09/2023 Left Ventricle: Preserved left ventricular systolic function. EF by visual approximation is 50%. Left ventricle size is normal. Severely increased wall thickness. Septal flattening in systole consistent with right ventricular pressure overload. Normal wall motion. Normal diastolic function. Right Ventricle: Right ventricle is severely dilated. Severely reduced systolic function. TAPSE is abnormal. TAPSE is 1.1 cm. Findings consistent with Summers's sign. Consider Pulm Embolism Rule Out if not done. Right Ventricle: Right ventricle is severely dilated. Severely reduced systolic function. TAPSE is abnormal. TAPSE is 1.1 cm. Findings consistent with Summers's sign. Aortic Valve: Trileaflet valve. Thickened cusps. Mitral Valve: Trace regurgitation. Tricuspid Valve: Moderate regurgitation. Moderately elevated RVSP, consistent with moderate pulmonary hypertension. The estimated RVSP is 59 mmHg. Interatrial Septum: Grade II Positive (10 to 20 bubbles). Agitated saline study was positive without provocation. Right Atrium: Right atrium is dilated. Pericardium: Trivial circumferential pericardial effusion present. IVC/SVC: IVC diameter is greater than 21 mm and decreases greater than 50% during inspiration; therefore the estimated right atrial pressure is intermediate (~8 mmHg). IVC is dilated. Image quality is technically difficult. XR CHEST PORTABLE Result Date: 11/09/2023 No acute cardiopulmonary disease. CT CHEST WO CONTRAST Result Date: 11/09/2023 1. Pericardial effusion as described above. Maximal thickness of pericardial effusion is 1.38 cm. 2. COPD. 3. Minimal scattered fibrotic changes in the lungs as described above. No confluent pneumonia, confluent pulmonary atelectasis or pleural effusions. 4. Atrophic changes in the pancreas. 5. Markedly atrophic left kidney which is not completely visualized. Right kidney not visualized. Assessment Acute allograft dysfunction likely from ATN from contrast exposure and depleted circulating volume further aggravated by tacrolimus use. 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 Ta Status post living donor donor kidney transplant in 2006 at [facility] being maintained on prednisone tacrolimus and everolimus Acute PE status post mechanical thrombectomy Metabolic acidosis- resolved Plan Continue everolimus, Prograf and prednisone at current dosing [place]ro level 4.7, continue current dosing Discontinue oral bicarb Avoid macrolides, images oral antifungals, nondihydropyridine calcium channel blockers BMP in a.m. Will continue to follow while admitted, otherwise with improvement in renal function, do not object to discharge from a nephrology standpoint Patient can follow-up with after DC Nutrition Renal Diet/TF Thank you. Please call with any questions. Lynn Reyes APRN - TRAUMA COORDINATOR [facility]. Attending Physician Statement I have discussed the care of this patient, including pertinent history and exam findings, with the Resident/OFFICE ASSOCIATE. I have seen and examined the patient myself. I have reviewed and edited the [place] elements of all parts of the encounter with the Resident/OFFICE ASSOCIATE. I agree with the assessment, plan and orders as documented by the Resident/OFFICE ASSOCIATE. In addition patient was seen and examined. No new issues reported overnight. Continue current immunosuppressants. Monitor strict I's and O's and renal function. Okay to discharge from nephrology standpoint. Lauro Sprague MD [facility] This note is created with the assistance of a speech-recognition program. While intending to generate a document that actually reflects the content of the visit, no guarantees can be provided that every mistake has been identified and corrected by editing. Images from the original note were not included. [facility] Office: [phone] Tonny Boyle DO, Henri Martin DO, Jarred Peña, DO, Paras Shankar, DO, Curtis Sprague MD, Samia Allen MD, Denise Oneal MD, Fatou Robb MD, Juvencio Chacon MD, Melany Sherman MD, Todd Boyle MD, Lashaun Womack, DO, Sandy Ma MD, Reilly Miller MD, Brigido Boyle DO, Kaylee Watson MD, Kendell Patterson, DO, Alpa White MD, Venessa Jones MD, Elba Garcias MD, Sandra Turner MD, Jarvis Herbert MD, Netta Wall MD, Sue Spencer MD, William Mcknight MD, Harsh Contreras MD, Dara Mitchell MD, Alejandro Arroyo, DO, Douglas Ware DO, Bora Ashton, DO, Maikel Varma MD, Cindy Daley, OFFICE ASSOCIATE, Mireille Jaeger, OFFICE ASSOCIATE, Alejandro Aly, OFFICE ASSOCIATE, Lynn Reyes, DNP, Marilyn Aldana, OFFICE ASSOCIATE, Yessi Choi, OFFICE ASSOCIATE, Magalys Bartlett, OFFICE ASSOCIATE, Saba Skelton, OFFICE ASSOCIATE, Lashell Fall PAWendieC, Lizzie Estes PAWendieC, Sena Patton, OFFICE ASSOCIATE, Iker Car, OFFICE ASSOCIATE, Estee Cueto, OFFICE ASSOCIATE, Bonnie Bush, OFFICE ASSOCIATE, Carine Kwan, OFFICE ASSOCIATE, Oksana Perez, SUPERVISOR INSULATION, Merlene Castro, OFFICE ASSOCIATE, Lilliam Conte, OFFICE ASSOCIATE, Krystal Howard, OFFICE ASSOCIATE [facility] IN-PATIENT SERVICE [facility] Progress Note 11/14/2023 2:55 PM Name: Ja Tavera Acct: [id number] Room: [facility]042-02 IP Day: 6 Admit Date: 11/08/2023 7:47 PM PCP: Alejandro Villagran MD Code Status: Full Code Subjective: Patient was seen and examined in no acute distress, was on 4 L nasal cannula at time of my evaluation and will wean off as tolerated No acute event overnight Lab vital sign consult note reviewed Discussed with RN Brief History: 61-year-old female presented to the hospital for evaluation of shortness of breath and concerns for pulmonary embolism. Patient was recently discharged from [facility] where she was treated for pneumonia after chest x-ray showed bilateral groundglass opacities. At that time VQ scan was negative for PE. On admission, patient underwent echocardiogram which showed an ejection fraction of 50% with right ventricular dilatation and severely reduced systolic function concerning for Summers sign. She also had moderate tricuspid regurgitation along with moderate pulmonary pretension with RVSP of 59 and an IVC diameter 21 mmHg. Patient was admitted seen by vascular surgery due to concerns for pulm embolism. She does have a history of renal transplant and was seen by nephrology as well Medications: Allergies: Allergies Allergen Reactions Aspirin Other (See Comments) Pt states she is allergic bc she is taking immunosuppressants meds that has a reaction to Asprin Ibuprofen Other (See Comments) Pt states she is allergic bc she is taking immunosuppressants meds that has a reaction to Ibuprofen Plavix [Clopidogrel] Other (See Comments) Pt states she is allergic bc she is taking immunosuppressants meds that has a reaction to plavix Amlodipine Rash Current Meds: Scheduled Meds: apixaban 10 mg Oral BID Followed by [START ON 11/19/2023] apixaban 5 mg Oral BID sodium chloride flush 5-40 mL IntraVENous 2 times per day Everolimus 0.75 mg Oral BID predniSONE 10 mg Oral Daily tacrolimus 0.5 mg Oral BID cefTRIAXone (ROCEPHIN) IV 2,000 mg IntraVENous Q24H levothyroxine 125 mcg Oral Daily sodium chloride flush 5-40 mL IntraVENous 2 times per day insulin lispro 0-8 Units SubCUTAneous TID insulin lispro 0-4 Units SubCUTAneous Nightly atorvastatin 40 mg Oral Nightly metoprolol tartrate 25 mg Oral BID Continuous Infusions: sodium chloride sodium chloride dextrose PRN Meds: perflutren lipid microspheres, naloxone 0.4 mg in 10 mL sodium chloride syringe, sodium chloride flush, sodium chloride, sodium chloride flush, sodium chloride, ondansetron OR ondansetron, polyethylene glycol, acetaminophen OR acetaminophen, glucose, dextrose bolus OR dextrose bolus, glucagon (rDNA), dextrose Data: Vitals: BP (!) 144/89 Pulse 63 Temp 98.6 F (37 C) (Oral) Resp 24 Ht 1.676 m (5' 5.98 ) Wt 78.4 kg (172 lb 13.5 oz) SpO2 94% BMI 27.91 kg/m Temp (24hrs), Av.3 F (36.8 C), Min:98.2 F (36.8 C), Max:98.6 F (37 C) Recent Labs 11/13/23 1633 11/13/23202911/14/23 0808 11/14/23 1226 POCGLU 286* 270* 176* 275* I/O (24Hr): No intake or output data in the 24 hours ending 11/14/23 1455 Labs: Hematology: Recent Labs 11/12/23 0549 WBC 9.6 RBC 3.91* HGB 11.0* HCT 36.3 MCV 92.8 MCH 28.1 MCHC 30.3 RDW 13.8 PLT 89* MPV 11.7 Chemistry: Recent Labs 11/12/23 0549 11/13/23 0403 11/14/23 0428 NA 138 137 141 K 4.0 4.0 4.4 CL 106 103 107 CO2 17* 23 23 GLUCOSE 232* 185* 220* BUN 27* 26* 31* CREATININE 3.2* 2.8* 2.8* MG 2.0 2.0 -- ANIONGAP 15 11 11 LABGLOM 16* 18* 19* CALCIUM 7.9* 8.0* 8.9 Recent Labs 11/13/23 0835 11/13/23 1220 11/13/23 1633 11/13/23202911/14/23 0808 11/14/23 1226 POCGLU 139* 276* 286* 270* 176* 275* ABG: Lab Results Component Value Date/Time POCPH 7.458 11/09/2023 06:22 AM POCPCO2 29.6 11/09/2023 06:22 AM POCPO2 84.8 11/09/2023 06:22 AM POCHCO3 21.0 11/09/2023 06:22 AM NBEA 1.7 11/09/2023 06:22 AM YWCF7HWM 97.1 11/09/2023 06:22 AM FIO2 INFORMATION NOT PROVIDED 11/09/2023 11:11 AM Lab Results Component Value Date/Time SPECIAL R ARM 1ML 11/08/2023 10:05 PM Lab Results Component Value Date/Time CULTURE NO GROWTH 5 DAYS 11/08/2023 10:05 PM Radiology: CT CHEST WO CONTRAST Result Date: 11/08/2023 1. Pericardial effusion as described above. Maximal thickness of pericardial effusion is 1.38 cm. 2. COPD. 3. Minimal scattered fibrotic changes in the lungs as described above. No confluent pneumonia, confluent pulmonary atelectasis or pleural effusions. 4. Atrophic changes in the pancreas. 5. Markedly atrophic left kidney which is not completely visualized. Right kidney not visualized. Physical Examination: General appearance: alert, cooperative and uncomfortable appearing female Mental Status: oriented to person, place and time and normal affect Lungs: Diminished breath sounds at the bases bilaterally, normal effort, on high flow nasal cannula Heart: regular rate and rhythm, no murmur Abdomen: soft, nontender, nondistended, normal bowel sounds, no masses, hepatomegaly, splenomegaly Extremities: no edema, redness, tenderness in the calves Skin: no gross lesions, rashes, induration Assessment: Hospital Problems Last Modified POA * (Principal) Acute hypoxic respiratory failure ([facility]) 11/08/2023 Yes Immunosuppression ([facility]) 11/08/2023 Yes Hypertension 11/08/2023 Yes History of renal transplant 11/08/2023 Yes Diabetes mellitus ([facility]) 11/08/2023 Yes Bladder cancer ([facility]) 11/08/2023 Yes DENIZ (acute kidney injury) ([facility]) 11/08/2023 Yes NSTEMI (non-ST elevated myocardial infarction) ([facility]) 11/08/2023 Yes Elevated d-dimer 11/08/2023 Yes Leukocytosis 11/08/2023 Yes Shortness of breath 11/09/2023 Yes Pneumonia of both lungs due to infectious organism 11/09/2023 Yes Biventricular congestive heart failure ([facility]) 11/09/2023 Yes Aortic atherosclerosis ([facility]) 11/09/2023 Yes Hypoglycemia 11/09/2023 Yes Pericardial effusion 11/09/2023 Yes Severe pulmonary hypertension ([facility]) 11/11/2023 Yes Cor pulmonale ([facility]) 11/09/2023 Yes Metabolic acidosis 11/09/2023 Yes Arterial hypotension 11/09/2023 Yes Pulmonary embolus ([facility]) 11/10/2023 Yes Debility 11/13/2023 Yes CKD (chronic kidney disease) stage 4, GFR 15-29 ml/min ([facility]) 11/13/2023 Yes Plan: Acute hypoxic respiratory failure requiring oxygen supplement, continue with oxygen supplement wean off as tolerated ,symptoms could be due to pneumonia versus pulmonary embolism, 2D echo with Summers sign concerning for PE, was on heparin then was switch to oral Eliquis, vascular and pulmonology is following appreciate input, ,S/P thrombectomy of pulmonary artery 11/10/2023 , continue IV ceftriaxone end of treatment 11-15-2023, appreciate ID input Hypotension patient blood pressure remains soft however maps remained above 65, will continue to monitor Acute kidney injury on chronic kidney disease continue to monitor BMP, avoid nephrotoxic agent, nephrology is following appreciate input S/p renal transplant on tacrolimus everolimus and prednisone continue Diabetes continue with insulin sliding scale diabetic diet and glucose check Bladder cancer on IV chemotherapy, patient to follow-up with oncology Abnormal TSH TSH 0.03, T4: 2. Decrease dose of synthroid Medical Decision Making: High William Mcknight MD 11/14/2023 2:55 PM Images from the original note were not included. [facility] Progress Note Ja Tavera Date: 11/14/2023 LOS: 6 Reason for F/U : Pneumonia Impression : Pneumonia Bladder cancer on chemotherapy History of renal transplant on immunosuppressive Diabetes mellitus type 2-currently insulin-dependent Essential hypertension Acute and subacute/chronic pulmonary emboli bilaterally status post thrombectomy 11/10/2023 Recommendations: The patient continues on intravenous antimicrobial therapy with Rocephin through 11/15/2023 [7 days] Clinically the patient is doing well and the patient is on 2 L of oxygen by nasal cannula The patient continues to do well clinically and from an infectious disease standpoint should be okay off antibiotics tomorrow Infection Control Recommendations: [place] precaution Discharge Planning: Estimated Length of IV antimicrobials: 11/15/2023 Patient will need Midline Catheter Insertion/ PICC line Insertion: No Patient will need: Home IV , Infusion Center, SNF, LTAC: Undetermined Patient willneed outpatient wound care: No Medical Decision making / Summary of Stay: Ja Tavera is a 63 y.o.-year-old female who was initially admitted on 11/08/2023. Patient seen at the request of . INITIAL HISTORY: Patient was originally seen at [facility] for progressive worsening shortness of breath. Her PCP encouraged her to go to the ED. Patient was desatting on room air 88 to 91% and was placed on 2 L of oxygen. A chest x-ray showed consolidation. CT chest showed subtle groundglass changes within the lingula this was likely infectious bronchiolitis. Patient had an elevated D-dimer at this time. Patient was started on heparin, IV Rocephin and IV azithromycin. Patient had a VQ scan which came back negative for PE and the heparin was discontinued on 10/19. Patient was discharged home on cefpodoxime mean for 3 days. Patient was worked up for cryptococcus and Q fever [place]. However this workup came back negative for atypical infection. Upon discharge she was sent home on 3 L of continuous oxygen. Patient was brought back to the ED for continual shortness of breath. Her oxygen was increased from 3 L to 5 L. EKG was performed and showed right ventricular hypertrophy consistent with pulmonary disease. Patient was transferred to [facility] for further management. Patient is currently on IV linezolid and IV Zosyn. Respiratory panel was done that was negative. CT of the chest showed pericardial effusion and minimal scattered fibrotic changes. Patient on high flow 02 Flow rate 35-->6-->4 -->6 L/min Underwent pulmonary artery thrombectomy 11-10-23 Overall has improved and has been able to move out of the ICU Antibiotic therapy narrowed to Rocephin Current evaluation:11/14/2023 BP (!) 144/89 Pulse 63 Temp 98.6 F (37 C) (Oral) Resp 24 Ht 1.676 m (5' 5.98 ) Wt 78.4 kg (172 lb 13.5 oz) SpO2 94% BMI 27.91 kg/m Temperature Range: Temp: 98.6 F (37 C) Temp Av.3 F (36.8 C) Min: 98.2 F (36.8 C) Max: 98.6 F (37 C) The patient is seen and evaluated at bedside she is awake and alert sitting up in the bed. She is on 2 L of oxygen by nasal cannula. Does not report any significant cough at this time. No nausea vomiting or diarrhea Review of Systems Constitutional: Negative. Respiratory: Positive for shortness of breath. Cardiovascular: Negative. Gastrointestinal: Negative. Genitourinary: Negative. Musculoskeletal: Negative. Skin: Negative. Neurological: Negative. Psychiatric/Behavioral: Negative. Physical Examination : Physical Exam Constitutional: Appearance: She is well-developed. HENT: Head: Normocephalic and atraumatic. Cardiovascular: Rate and Rhythm: Regular rhythm. Heart sounds: Normal heart sounds. Pulmonary: Effort: Pulmonary effort is normal. Breath sounds: Normal breath sounds. Abdominal: General: Bowel sounds are normal. Palpations: Abdomen is soft. Musculoskeletal: Cervical back: Neck supple. Skin: General: Skin is warm and dry. Neurological: Mental Status: She is alert and oriented to person, place, and time. Laboratory data: I have independently reviewed the followinglabs: CBC with Differential: Recent Labs 11/12/23 0549 WBC 9.6 HGB 11.0* HCT 36.3 PLT 89* LYMPHOPCT 16* MONOPCT 12 EOSPCT 1 BMP: Recent Labs 11/12/23 0549 11/13/23 0403 11/14/23 0428 NA 138 137 141 K 4.0 4.0 4.4 CL 106 103 107 CO2 17* 23 23 BUN 27* 26* 31* CREATININE 3.2* 2.8* 2.8* MG 2.0 2.0 -- Hepatic Function Panel: No results for input(s): LABALBU , BILIDIR , IBILI , BILITOT , ALKPHOS , ALT , AST in the last 72 hours. Invalid input(s): PROT Lab Results Component Value Date/Time PROCAL 0.27 11/08/2023 08:59 PM No results found for: CRP No results found for: SEDRATE Lab Results Component Value Date/Time DDIMER 13.32 11/08/2023 08:59 PM No results found for: FERRITIN No results found for: LDH No results found for: FIBRINOGEN Results in Past 30 Days Result Component Current Result Ref Range Previous Result Ref Range SARS-CoV-2, PCR Not Detected (11/09/2023) Not Detected Not in Time Range Lab Results Component Value Date/Time COVID19 Not Detected 11/09/2023 07:45 AM No results for input(s): VANCOTROUGH in the last 72 hours. Imaging Studies: No new imaging Cultures: Culture and Sensitivities: No results for input(s): SPECDESC , SPECIAL , CULTURE , STATUS , ORG , CDIFFTOXPCR , CAMPYLOBPCR , SALMONELLAPC , SHIGAPCR , SHIGELLAPCR in the last 72 hours. Procedure Component Value Units Date/Time Culture, Blood 1 [[id number]] Collected: 11/08/232204 Order Status: Completed Specimen: Blood Updated: 11/14/23 0044 Specimen Description .BLOOD Special Requests R ARM 1ML Culture NO GROWTH 5 DAYS Culture, Blood 2 [[id number]] Collected: 11/08/232199 Order Status: Completed Specimen: Blood Updated: 11/14/23 0037 Specimen Description .BLOOD Special Requests R HAND 6ML Culture NO GROWTH 5 DAYS MRSA DNA Probe, Nasal [[id number]] Collected: 11/09/2345 Order Status: Completed Specimen: Nasal Updated: 11/10/23 0849 Specimen Description .NASAL SWAB MRSA, DNA, Nasal NEGATIVE Comment: NEGATIVE: MRSA DNA not detected by nucleic acid amplification. Results should be used as an adjunct to nosocomial control efforts to identify patients needing enhanced precautions. The test is not intended to identify patients with staphylococcal infections. Results should not be used to guide or monitor treatment for MRSA infections. Infectious Disease Intervention [[id number]] Order Status: Sent LEGIONELLA ANTIGEN, URINE [[id number]] Collected: 11/08/23 2315 Order Status: Completed Specimen: Urine Updated: 11/09/23 1027 Legionella Pneumophilia Ag, Urine NEGATIVE Comment: L. pneumophila serogroup 1 antigen not detected. A negative result does not exclude infection with Leginella pnemophila serogroup 1 nor does it rule out other microbial-caused respiratory infections of disease caused by other serogroups of Legionella pneumophila. Strep Pneumoniae Antigen [[id number]] Collected: 11/08/23 0805 Order Status: Completed Specimen: Urine-clean catch from Urine, clean catch Updated: 11/09/23 1027 Source .URINE Strep pneumo Ag NEGATIVE Comment: Strep pneumoniae antigen not detected Respiratory Panel, Molecular, with COVID-19 (Restricted: peds pts or suitable admitted adults) [[id number]] Collected: 11/09/2345 Order Status: Completed Specimen: Nasopharyngeal Swab Updated: 11/09/23 0908 Specimen Description .NASOPHARYNGEAL SWAB Adenovirus PCR Not Detected Coronavirus 229E PCR Not Detected Coronavirus HKU1 PCR Not Detected Coronavirus NL63 PCR Not Detected Coronavirus OC43 PCR Not Detected SARS-CoV-2, PCR Not Detected Human Metapneumovirus PCR Not Detected Rhino/Enterovirus PCR Not Detected Influenza A by PCR Not Detected Influenza B by PCR Not Detected Parainfluenza 1 PCR Not Detected Parainfluenza 2 PCR Not Detected Parainfluenza 3 PCR Not Detected Parainfluenza 4 PCR Not Detected Resp Syncytial Virus PCR Not Detected Bordetella parapertussis by PCR Not Detected B Pertussis by PCR Not Detected Chlamydia pneumoniae By PCR Not Detected Mycoplasma pneumo by PCR Not Detected Comment: Performed by multiplexed nucleic acid assay. Culture, Respiratory [[id number]] Order Status: No result Specimen: Sputum Expectorated Medications: apixaban 10 mg Oral BID Followed by [START ON 11/19/2023] apixaban 5 mg Oral BID sodium chloride flush 5-40 mL IntraVENous 2 times per day Everolimus 0.75 mg Oral BID predniSONE 10 mg Oral Daily tacrolimus 0.5 mg Oral BID cefTRIAXone (ROCEPHIN) IV 2,000 mg IntraVENous Q24H levothyroxine 125 mcg Oral Daily sodium chloride flush 5-40 mL IntraVENous 2 times per day insulin lispro 0-8 Units SubCUTAneous TID WC insulin lispro 0-4 Units SubCUTAneous Nightly atorvastatin 40 mg Oral Nightly metoprolol tartrate 25 mg Oral BID [facility] Jerrica Riggs MD [employer] messaging OFFICE: Thank you for allowing us to participate in the care of this patient. Please call with questions. This note is created with the assistance of a speech recognition program. While intending to generate a document that actually reflects the content of the visit, the document can still have some errors including those of syntax and sound a like substitutions which may escape proof reading. In such instances, actual meaning can be extrapolated by contextual diversion. Nephrology Progress Note Patient: Ja Tavera; 63 y.o. Location: Attending: William Mcknight* Admit Date: 11/08/2023 Hospital Day: 6 Subjective History reviewed Known history of ESRD from recurrent UTIs as a child and right nephrectomy as a child, status post 2 haplotype matched living donor kidney transplant at [facility] in 2006, baseline creatinine 2.5-2.7. Is being maintained on prednisone tacrolimus and everolimus. Prior to that was on MMF however she developed bladder cancer in June 2020 and was switched over to everolimus. She been following up with [facility] urology for bladder cancer and has been cancer free also continues to receive local chemotherapy. Came to [facility] hospital in September with shortness of breath. Thought to have a lingular pneumonia. VQ scan was negative at that time. Placed on antibiotics and discharged home. Dyspnea did not improve came back to the hospital at this time to [facility]. Echocardiogram showed right ventricular strain. Found to have a PE. Underwent mechanical thrombectomy. Creatinine is gone up slightly to 3.4 nephrology consulted for acute allograft dysfunction Patient seen and evaluated in room, no acute events overnight Patient is slightly tachypneic overnight on 4 L nasal cannula Renal function maintaining, creatinine 2.8, was 2.8 yesterday UOP documented at 1.95 L over the last 24 hours with an additional 800 mL of urine this morning, off diuretic therapy Continues on everolimus, Prograf and prednisone Recent Labs 11/12/23 0549 11/13/23 0403 11/14/23 0428 NA 138 137 141 K 4.0 4.0 4.4 CL 106 103 107 CO2 17* 23 23 BUN 27* 26* 31* CREATININE 3.2* 2.8* 2.8* GLUCOSE 232* 185* 220* CALCIUM 7.9* 8.0* 8.9 Objective VS: BP (!) 144/89 Pulse 63 Temp 98.6 F (37 C) (Oral) Resp 24 Ht 1.676 m (5' 5.98 ) Wt 78.4 kg (172 lb 13.5 oz) SpO2 94% BMI 27.91 kg/m MAXIMUM TEMPERATURE OVER 24 HRS: Temp (24hrs), Av.3 F (36.8 C), Min:98.2 F (36.8 C), Max:98.6 F (37 C) 24 HR BLOOD PRESSURE RANGE: Systolic (24hrs), Av , Min:86 , Max:155 ; Diastolic (24hrs), Av, Min:56, Max:96 24 HR INTAKE/OUTPUT: Intake/Output Summary (Last 24 hours) at 11/14/2023 1043 Last data filed at 11/13/2023 1227 Gross per 24 hour Intake 509.56 ml Output 800 ml Net -290.44 ml WEIGHT: Patient Vitals for the past 96 hrs (Last 3 readings): Weight 11/13/23 0600 78.4 kg (172 lb 13.5 oz) 11/12/23 0552 76.4 kg (168 lb 6.9 oz) Current Medications Scheduled Meds: sodium bicarbonate 650 mg Oral Daily apixaban 10 mg Oral BID Followed by [START ON 11/19/2023] apixaban 5 mg Oral BID sodium chloride flush 5-40 mL IntraVENous 2 times per day Everolimus 0.75 mg Oral BID predniSONE 10 mg Oral Daily tacrolimus 0.5 mg Oral BID cefTRIAXone (ROCEPHIN) IV 2,000 mg IntraVENous Q24H levothyroxine 125 mcg Oral Daily sodium chloride flush 5-40 mL IntraVENous 2 times per day insulin lispro 0-8 Units SubCUTAneous TID WC insulin lispro 0-4 Units SubCUTAneous Nightly atorvastatin 40 mg Oral Nightly metoprolol tartrate 25 mg Oral BID Continuous Infusions: sodium chloride sodium chloride dextrose PRN Meds: perflutren lipid microspheres, naloxone 0.4 mg in 10 mL sodium chloride syringe, sodium chloride flush, sodium chloride, sodium chloride flush, sodium chloride, ondansetron OR ondansetron, polyethylene glycol, acetaminophen OR acetaminophen, glucose, dextrose bolus OR dextrose bolus, glucagon (rDNA), dextrose Physical Examination General: AAO x 3, speaking in full sentences, no accessory muscle use. Chest: Bilateral vesicular breath sounds, no rales or wheezes, 4LLFNC Cardiac: S1 S2 RR, no murmurs, gallops or rubs, JVP not raised. Abdomen: Soft, non-tender, non distended, BS audible. SKIN: No rashes, good skin turgor. Extremities: No edema, no clubbing, No cyanosis Neuro: AAO x 3, No FND. Labs Recent Labs 11/12/23 0549 WBC 9.6 RBC 3.91* HGB 11.0* HCT 36.3 MCV 92.8 MCH 28.1 MCHC 30.3 RDW 13.8 PLT 89* MPV 11.7 BMP: Recent Labs 11/12/23 0549 11/13/23 0403 11/14/23 0428 NA 138 137 141 K 4.0 4.0 4.4 CL 106 103 107 CO2 17* 23 23 BUN 27* 26* 31* CREATININE 3.2* 2.8* 2.8* GLUCOSE 232* 185* 220* CALCIUM 7.9* 8.0* 8.9 Magnesium: Recent Labs 11/12/23 0549 11/13/23 0403 MG 2.0 2.0 Urinalysis/Chemistries No results found for: NITRU , COLORU , PHUR , LABCAST , WBCUA , RBCUA , MUCUS , TRICHOMONAS , YEAST , BACTERIA , CLARITYU , SPECGRAV , LEUKOCYTESUR , UROBILINOGEN , BILIRUBINUR , BLOODU , GLUCOSEU , KETUA , AMORPHOUS Radiology Echo (TTE) complete (PRN contrast/bubble/strain/3D) Addendum Date: 11/09/2023 Left Ventricle: Preserved left ventricular systolic function. EF by visual approximation is 50%. Left ventricle size is normal. Severely increased wall thickness. Septal flattening in systole consistent with right ventricular pressure overload. Normal wall motion. Normal diastolic function. Right Ventricle: Right ventricle is severely dilated. Severely reduced systolic function. TAPSE is abnormal. TAPSE is 1.1 cm. Findings consistent with Summers's sign. Consider Pulm Embolism Rule Out if not done. Right Ventricle: Right ventricle is severely dilated. Severely reduced systolic function. TAPSE is abnormal. TAPSE is 1.1 cm. Findings consistent with Summers's sign. Aortic Valve: Trileaflet valve. Thickened cusps. Mitral Valve: Trace regurgitation. Tricuspid Valve: Moderate regurgitation. Moderately elevated RVSP, consistent with moderate pulmonary hypertension. The estimated RVSP is 59 mmHg. Interatrial Septum: Grade II Positive (10 to 20 bubbles). Agitated saline study was positive without provocation. Right Atrium: Right atrium is dilated. Pericardium: Trivial circumferential pericardial effusion present. IVC/SVC: IVC diameter is greater than 21 mm and decreases greater than 50% during inspiration; therefore the estimated right atrial pressure is intermediate (~8 mmHg). IVC is dilated. Image quality is technically difficult. XR CHEST PORTABLE Result Date: 11/09/2023 No acute cardiopulmonary disease. CT CHEST WO CONTRAST Result Date: 11/09/2023 1. Pericardial effusion as described above. Maximal thickness of pericardial effusion is 1.38 cm. 2. COPD. 3. Minimal scattered fibrotic changes in the lungs as described above. No confluent pneumonia, confluent pulmonary atelectasis or pleural effusions. 4. Atrophic changes in the pancreas. 5. Markedly atrophic left kidney which is not completely visualized. Right kidney not visualized. Assessment Acute allograft dysfunction likely from ATN from contrast exposure and depleted circulating volume further aggravated by tacrolimus use. 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 Ta Status post living donor donor kidney transplant in 2006 at [facility] being maintained on prednisone tacrolimus and everolimus Acute PE status post mechanical thrombectomy Metabolic acidosis- resolved Plan Continue everolimus, Prograf and prednisone at current dosing Follow-up on tacro level, pending Discontinue oral bicarb Avoid macrolides, images oral antifungals, nondihydropyridine calcium channel blockers BMP in a.m. Will continue to follow while admitted, otherwise with improvement in renal function, do not object to discharge from a nephrology standpoint Patient can follow-up with after DC Nutrition Renal Diet/TF Thank you. Please call with any questions. Lynn Reyes APRN - TRAUMA COORDINATOR [facility]. Attending Physician Statement I have discussed the care of Ja Tavera, including pertinent history and exam findings, with the OFFICE ASSOCIATE. I have reviewed the [place] elements of all parts of the encounter with the OFFICE ASSOCIATE. I agree with the assessment, plan and orders as documented by the OFFICE ASSOCIATE Denys Vasquez MD MD, MRCP (), FACP 11/14/2023 3:00 PM [facility] Education note: Discussed 2000mg/day sodium restricted diet; patient verbalized understanding. Moderate daily exercise encouraged as tolerated. Discussed rest breaks as needed; patient verbalized understanding. Patient instructed to weigh self at the same time of each day, using same clothes and same scale; reinforced teaching to monitor for 3-5 lb weight increase over 1-2 days notify physician if charge noted. Patient verbalized understanding. Patient instructed to limit fluid intake to 2 liters per day. Patient verbalized understanding. Signs and symptoms of CHF discussed with patient, such as feeling more tired than normal, feeling short of breath, coughing that increases when you lie down, sudden weight gain, swelling of your feet, legs or belly. Patient verbalized understanding to notify physician office if these symptoms occur. Compliance with plan of care and further disease process causes discussed with patient, patient encouraged to keep all follow up appointments. Patient verbalized understanding. Images from the original note were not included. PULMONARY & CRITICAL CARE MEDICINE PROGRESS NOTE Patient: Ja Tavera Admit date: 11/08/2023 Primary Care Physician: Alejandro Villagran MD CODE Status: Full Code LOS: 6 SUBJECTIVE CHIEF COMPLAINT/REASON FOR CONSULT: No chief complaint on file. HISTORY OF PRESENT ILLNESS: The patient is a 63 y.o. female with history of diabetes, hypertension, bladder cancer, renal failure, s/p renal transplant; on immunosuppressive therapy (tacrolimus, everolimus and prednisone) of. Patient was recently hospitalized at [facility] with worsening shortness of breath. Patient was referred to ED by her primary care provider noted her to be hypoxemic. During evaluation D-dimer was elevated at 11.36, her CT chest showed subtle groundglass infiltrate involving the lingula. She was started on heparin infusion along with empiric Rocephin/azithromycin. Her VQ scan was reported to be negative after which heparin was discontinued. Patient was discharged on home O2 at 3 L/min. Patient now admitted with worsening shortness of breath. Patient was hypoxemic on presentation and was started on high flow nasal cannula. She denies any history of asthma, COPD or sleep apnea. However reports difficulty in laying flat in the bed. Lab evaluation in the ED shows WBC of 14, hemoglobin 15, creatinine of 2.7, bicarb 20, anion gap of 18, mildly elevated transaminases, proBNP is elevated at 24,370. Respiratory panel is negative. CT chest showed a pericardial effusion with minimal scattered fibrotic changes. Echocardiogram showed preserved LV function, EF 50%, severely thickened wall thickness, with septal flattening in systole, RV severely dilated with TAPSE of 1.1 and finding consistent with Summers sign. Moderate tricuspid regurgitation, RVSP 59 suggestive moderate pulmonary hypertension. Bubble study with agitated saline reported to be grade 2 positive (10-20 bubbles) suggestive of intracardiac shunting. On 11/10 patient had mechanical thrombectomy of pulmonary embolism by vascular surgery team. INTERVAL HISTORY: 11/14/2023 I have reviewed the lab and images from this morning. The patient currently on 4 L/min salter nasal cannula. She is status post mechanical thrombectomy on 11/10 by vascular surgery team. Switch to oral anticoagulation, lifelong Currently receiving ceftriaxone for CAP stop date 11/14 per infectious disease Continuing tacrolimus, everolimus and prednisone history of renal transplant, nephrology on board REVIEW OF SYSTEMS: Review of Systems Constitutional: Positive for fatigue. Negative for fever. HENT: Negative for voice change. Eyes: Negative for visual disturbance. Respiratory: Positive for shortness of breath. Negative for chest tightness. Gastrointestinal: Negative for abdominal pain, diarrhea and vomiting. Genitourinary: Negative for dysuria and urgency. Musculoskeletal: Negative for joint swelling. Allergic/Immunologic: Negative for environmental allergies and immunocompromised state. Neurological: Positive for weakness. Hematological: Negative for adenopathy. Does not bruise/bleed easily. Psychiatric/Behavioral: Negative for behavioral problems. OBJECTIVE VITAL SIGNS: LAST: BP (!) 144/89 Pulse 63 Temp 98.6 F (37 C) (Oral) Resp 24 Ht 1.676 m (5' 5.98 ) Wt 78.4 kg (172 lb 13.5 oz) SpO2 94% BMI 27.91 kg/m 8-24 HR RANGE: TEMP Temp Av.3 F (36.8 C) Min: 98.2 F (36.8 C) Max: 98.6 F (37 C) BP Systolic (24hrs), Av , Min:86 , Max:155 Diastolic (24hrs), Av, Min:56, Max:96 PULSE Pulse Av.5 Min: 62 Max: 83 RR Resp Av.5 Min: 23 Max: 24 O2 SAT SpO2 Av.5 % Min: 94 % Max: 95 % OXYGEN DELIVERY O2 Flow Rate (L/min) Av L/min Min: 4 L/min Max: 4 L/min PHYSICAL EXAM: Physical Exam Constitutional: General: She is awake. She is not in acute distress. Appearance: She is overweight. She is ill-appearing. Interventions: Nasal cannula in place. Comments: Nasal cannula in place HENT: Head: Normocephalic and atraumatic. Eyes: General: No scleral icterus. Conjunctiva/sclera: Conjunctivae normal. Cardiovascular: Rate and Rhythm: Normal rate. Heart sounds: S1 normal and S2 normal. No murmur heard. Pulmonary: Breath sounds: Decreased air movement present. No rales. Abdominal: General: Bowel sounds are normal. Palpations: Abdomen is soft. Tenderness: There is no abdominal tenderness. Musculoskeletal: Right lower leg: No edema. Left lower leg: No edema. Skin: Coloration: Skin is not pale. Findings: No rash. Neurological: General: No focal deficit present. Mental Status: She is alert. DATA REVIEW CURRENT MEDICATIONS: Scheduled Meds: sodium bicarbonate 650 mg Oral Daily apixaban 10 mg Oral BID Followed by [START ON 11/19/2023] apixaban 5 mg Oral BID sodium chloride flush 5-40 mL IntraVENous 2 times per day Everolimus 0.75 mg Oral BID predniSONE 10 mg Oral Daily tacrolimus 0.5 mg Oral BID cefTRIAXone (ROCEPHIN) IV 2,000 mg IntraVENous Q24H levothyroxine 125 mcg Oral Daily sodium chloride flush 5-40 mL IntraVENous 2 times per day insulin lispro 0-8 Units SubCUTAneous TID WC insulin lispro 0-4 Units SubCUTAneous Nightly atorvastatin 40 mg Oral Nightly metoprolol tartrate 25 mg Oral BID Continuous Infusions: sodium chloride sodium chloride dextrose INPUT/OUTPUT: In: 509.6 [I.V.:509.6] Out: 800 [Urine:800] LABORATORY RESULTS: BLOOD GASES: No results for input(s): POCPH , POCPCO2 , POCPO2 , POCHCO3 , LAQU9WXJ in the last 72 hours. COMPLETE BLOOD COUNTS: Recent Labs 11/12/23 0549 WBC 9.6 HGB 11.0* HCT 36.3 MCV 92.8 PLT 89* LYMPHOPCT 16* RBC 3.91* MCH 28.1 MCHC 30.3 RDW 13.8 C-REACTIVE PROTEIN: No results for input(s): CRP in the last 72 hours. LACTATE DEHYDROGENASE: No results for input(s): LDH in the last 72 hours. BASIC METABOLIC PROFILE: Recent Labs 11/12/23 0549 11/13/23 0403 11/14/23 0428 NA 138 137 141 K 4.0 4.0 4.4 CL 106 103 107 CO2 17* 23 23 BUN 27* 26* 31* CREATININE 3.2* 2.8* 2.8* GLUCOSE 232* 185* 220* MG 2.0 2.0 -- LIVER FUNCTION TESTS: No results for input(s): LABALBU , ALT , AST , GGT , ALKPHOS , BILITOT in the last 72 hours. Invalid input(s): PROT COAGULATION PROFILE: No results for input(s): INR , PROTIME , APTT in the last 72 hours. D-DIMER: No results for input(s): DDIMER in the last 72 hours. LACTIC ACID: No results for input(s): LACTA in the last 72 hours. CARDIAC ENZYMES: No results for input(s): CKTOTAL , CKMB , CKMBINDEX , TROPONINI in the last 72 hours. Invalid input(s): TROPONIN , HSTROP BRAIN NATRIURETIC PEPTIDE/PRO-BRAIN NATRURETIC PEPTIDE: No results for input(s): BNP , PROBNP in the last 72 hours. TRIGLYCERIDES: No results for input(s): TRIG in the last 72 hours. MICROBIOLOGY RESULTS: URINE CULTURE: No components found for: CURINE BLOOD CULTURE: No components found for: CBLOOD , CFUNGUSBL SPUTUM CULTURE: No components found for: CSPUTUM No results for input(s): SPUTUM , SPECDESC , SPECIAL , CULTURE , STATUS , ORG , CDIFFTOXPCR , MPNEUM , MPNEUG , CAMPYLOBPCR , SALMONELLAPC , SHIGAPCR , SHIGELLAPCR , LACTOQL in the last 72 hours. Invalid input(s): CURINE , CBLOOD , CFUNGUSBL PATHOLOGY RESULTS: RADIOLOGY REPORTS: Vascular duplex lower extremity venous bilateral Final Result Vascular duplex mesenteric artery Final Result XR CHEST PORTABLE Final Result No acute cardiopulmonary disease. CT CHEST WO CONTRAST Final Result 1. Pericardial effusion as described above. Maximal thickness of pericardial effusion is 1.38 cm. 2. COPD. 3. Minimal scattered fibrotic changes in the lungs as described above. No confluent pneumonia, confluent pulmonary atelectasis or pleural effusions. 4. Atrophic changes in the pancreas. 5. Markedly atrophic left kidney which is not completely visualized. Right kidney not visualized. ECHOCARDIOGRAM: Results for orders placed during the hospital encounter of 11/08/23 Echo (TTE) complete (PRN contrast/bubble/strain/3D) Interpretation Summary Left Ventricle: Preserved left ventricular systolic function. EF by visual approximation is 50%. Left ventricle size is normal. Severely increased wall thickness. Septal flattening in systole consistent with right ventricular pressure overload. Normal wall motion. Normal diastolic function. Right Ventricle: Right ventricle is severely dilated. Severely reduced systolic function. TAPSE is abnormal. TAPSE is 1.1 cm. Findings consistent with Summers's sign. Consider Pulm Embolism Rule Out if not done. Right Ventricle: Right ventricle is severely dilated. Severely reduced systolic function. TAPSE is abnormal. TAPSE is 1.1 cm. Findings consistent with Summers's sign. Aortic Valve: Trileaflet valve. Thickened cusps. Mitral Valve: Trace regurgitation. Tricuspid Valve: Moderate regurgitation. Moderately elevated RVSP, consistent with moderate pulmonary hypertension. The estimated RVSP is 59 mmHg. Interatrial Septum: Grade II Positive (10 to 20 bubbles). Agitated saline study was positive without provocation. Right Atrium: Right atrium is dilated. Pericardium: Trivial circumferential pericardial effusion present. IVC/SVC: IVC diameter is greater than 21 mm and decreases greater than 50% during inspiration; therefore the estimated right atrial pressure is intermediate (~8 mmHg). IVC is dilated. Image quality is technically difficult. ASSESSMENT AND PLAN PROBLEM LIST: Patient Active Problem List Diagnosis Acute hypoxic respiratory failure (HCC) Immunosuppression (HCC) Hypertension History of renal transplant Diabetes mellitus (HCC) Bladder cancer (HCC) DENIZ (acute kidney injury) (HCC) NSTEMI (non-ST elevated myocardial infarction) (HCC) Elevated d-dimer Leukocytosis Shortness of breath Pneumonia of both lungs due to infectious organism Biventricular congestive heart failure (HCC) Aortic atherosclerosis (HCC) Hypoglycemia Pericardial effusion Severe pulmonary hypertension (HCC) Cor pulmonale (HCC) Metabolic acidosis Arterial hypotension Pulmonary embolus (HCC) Debility CKD (chronic kidney disease) stage 4, GFR 15-29 ml/min ([facility]) ASSESSMENT: Acute hypoxic respiratory failure, Acute PE with cor pulmonale - post mechanical thrombectomy CAP Right peroneal vein DVT Positive bubble study with agitated saline, suggestive intra-atrial stenting Mild pericardial effusion Acute kidney injury History of renal transplant; on immunosuppressive therapy Recent hospitalization at [facility] for pneumonia Essential hypertension Diabetes mellitus Obesity Suspected sleep apnea Bladder cancer PLAN: I personally interviewed/examined the patient; reviewed interval history, interpreted all available radiographic and laboratory data at the time of service. Patient is hemodynamically stable Currently saturating well on supplemental oxygen with nasal cannula @ O2 Flow Rate (L/min) Av L/min Min: 4 L/min Max: 4 L/min Continue supplemental oxygen to keep oxygen saturation >90% Status post mechanical thrombectomy on 11/11/2023. Continue anticoagulation, currently on Eliquis, will need lifelong encourage incentive spirometry/Acapella Maintain bronchopulmonary hygiene Aspiration precautions Bronchodilators On Abx as per ID recs. Follow-up culture results fluid balance as per nephrology recommendation. Monitor intake/output and electrolytes closely Physical/occupational therapy It was my pleasure to evaluate Ja Tavera today. I would like to thank you for allowing me to participate in the care of this patient. Please feel free to call with any further questions or concerns. We will continue to follow. Stephan Fields MD [facility] 11/14/2023, 9:33 AM This note is created with the assistance of a speech recognition program. While intending to generate a document that actually reflects the content of the visit, the document can still have some errors including those of syntax and sound-alike substitutions which may escape proof reading. It such instances, actual meaning can be extrapolated by contextual diversion. Attending Physician Statement I have discussed the care of Ja Tavera, including pertinent history and exam findings, with the resident. I have seen and examined the patient and the [place] elements of all parts of the encounter have been performed by me. I agree with the assessment, plan and orders as documented by the resident with additions . D/w pt Life long anticoagulation with eliquis Follow up 1 month in clinic Will do pft out pt Echo and vq scan in 6 months Needs home o2 eval before dc Please note that this chart was generated using voice recognition [employer] dictation software. Although every effort was made to ensure the accuracy of this automated bread baker, some errors in bread baker may have occurred. Images from the original note were not included. Division of Vascular Surgery Progress Note Name: Ja Tavera Overnight Events: No acute events overnight Hospital Summary 11/09: Patient is a 63-year-old woman who was transferred to [facility] on 11/07 from OSH with shortness of breath. She was discharged from [facility] on 10/22 after 5-day hospital stay where workup for atypic infection was negative. During her stay she received heparin, azithromycin, rocephin, and was discharged with cefpodoxime. VQ scan was negative. On 11/08, the patient was on 15 L HFNC, saturating at 92-94%, and had dyspnea on exertion. She also had DVTs in her right lower leg, bladder cancer, and evidence of right heart strain. No CT PE was done due to her poor renal function. Based on her presentation, a pulmonary embolism is highly likely in this patient. Dr. Ghosh spoke with the patient about a mechanical thrombectomy, which is planned for later today. Pt saturating 89-91%on 20L HFNC. Pt is normocardic. 11/10: Percutaneous mechanical thrombectomy of pulmonary embolism Subjective: The patient is doing well with no complaints overnight. States her shortness of breath has improved. She is on 4-6 L nasal cannula today satting 97% on exam. On bicarb and heparin drip.Pt transferred out of ICU. Vascular will sign off at this time. Physical Exam: Vitals: BP (!) 137/90 Pulse 77 Temp 98.2 F (36.8 C) (Oral) Resp 23 Ht 1.676 m (5' 5.98 ) Wt 78.4 kg (172 lb 13.5 oz) SpO2 93% BMI 27.91 kg/m Physical Exam Constitutional: General: She is not in acute distress. Appearance: She is not toxic-appearing. HENT: Head: Normocephalic and atraumatic. Right Ear: External ear normal. Left Ear: External ear normal. Mouth/Throat: Mouth: Mucous membranes are moist. Pharynx: Oropharynx is clear. Eyes: Extraocular Movements: Extraocular movements intact. Pupils: Pupils are equal, round, and reactive to light. Cardiovascular: Rate and Rhythm: Normal rate. Pulses: Normal pulses. Pulmonary: Effort: Pulmonary effort is normal. No respiratory distress. Comments: 4 L nasal cannula, able to speak full sentences without shortness of breath Abdominal: General: There is no distension. Palpations: Abdomen is soft. Tenderness: There is no abdominal tenderness. Musculoskeletal: General: No swelling. Normal range of motion. Comments: Groin soft without hematoma Skin: General: Skin is warm. Capillary Refill: Capillary refill takes less than 2 seconds. Coloration: Skin is not jaundiced. Findings: No bruising. Neurological: General: No focal deficit present. Mental Status: She is alert and oriented to person, place, and time. Psychiatric: Mood and Affect: Mood normal. Behavior: Behavior normal. Imaging/Labs: Echo (TTE) complete (PRN contrast/bubble/strain/3D) Addendum Date: 11/09/2023 Left Ventricle: Preserved left ventricular systolic function. EF by visual approximation is 50%. Left ventricle size is normal. Severely increased wall thickness. Septal flattening in systole consistent with right ventricular pressure overload. Normal wall motion. Normal diastolic function. Right Ventricle: Right ventricle is severely dilated. Severely reduced systolic function. TAPSE is abnormal. TAPSE is 1.1 cm. Findings consistent with Summers's sign. Consider Pulm Embolism Rule Out if not done. Right Ventricle: Right ventricle is severely dilated. Severely reduced systolic function. TAPSE is abnormal. TAPSE is 1.1 cm. Findings consistent with Summers's sign. Aortic Valve: Trileaflet valve. Thickened cusps. Mitral Valve: Trace regurgitation. Tricuspid Valve: Moderate regurgitation. Moderately elevated RVSP, consistent with moderate pulmonary hypertension. The estimated RVSP is 59 mmHg. Interatrial Septum: Grade II Positive (10 to 20 bubbles). Agitated saline study was positive without provocation. Right Atrium: Right atrium is dilated. Pericardium: Trivial circumferential pericardial effusion present. IVC/SVC: IVC diameter is greater than 21 mm and decreases greater than 50% during inspiration; therefore the estimated right atrial pressure is intermediate (~8 mmHg). IVC is dilated. Image quality is technically difficult. XR CHEST PORTABLE Result Date: 11/09/2023 No acute cardiopulmonary disease. CT CHEST WO CONTRAST Result Date: 11/09/2023 1. Pericardial effusion as described above. Maximal thickness of pericardial effusion is 1.38 cm. 2. COPD. 3. Minimal scattered fibrotic changes in the lungs as described above. No confluent pneumonia, confluent pulmonary atelectasis or pleural effusions. 4. Atrophic changes in the pancreas. 5. Markedly atrophic left kidney which is not completely visualized. Right kidney not visualized. Assessment/Plan: Status post percutaneous thrombectomy with penumbra Okay to transition to oral anticoagulation eliquis 5 BID Patient will need lifelong anticoagulation Vascular surgery will sign off, please reach out with questions or concerns Alejandro Bowers, DO General Surgery, PGY-1 Images from the original note were not included. PULMONARY & CRITICAL CARE MEDICINE PROGRESS NOTE Patient: Ja Tavera Admit date: 11/08/2023 Primary Care Physician: Alejandro Villagran MD CODE Status: Full Code LOS: 5 SUBJECTIVE CHIEF COMPLAINT/REASON FOR CONSULT: No chief complaint on file. HISTORY OF PRESENT ILLNESS: The patient is a 63 y.o. female with history of diabetes, hypertension, bladder cancer, renal failure, s/p renal transplant; on immunosuppressive therapy (tacrolimus, everolimus and prednisone) of. Patient was recently hospitalized at [facility] with worsening shortness of breath. Patient was referred to ED by her primary care provider noted her to be hypoxemic. During evaluation D-dimer was elevated at 11.36, her CT chest showed subtle groundglass infiltrate involving the lingula. She was started on heparin infusion along with empiric Rocephin/azithromycin. Her VQ scan was reported to be negative after which heparin was discontinued. Patient was discharged on home O2 at 3 L/min. Patient now admitted with worsening shortness of breath. Patient was hypoxemic on presentation and was started on high flow nasal cannula. She denies any history of asthma, COPD or sleep apnea. However reports difficulty in laying flat in the bed. Lab evaluation in the ED shows WBC of 14, hemoglobin 15, creatinine of 2.7, bicarb 20, anion gap of 18, mildly elevated transaminases, proBNP is elevated at 24,370. Respiratory panel is negative. CT chest showed a pericardial effusion with minimal scattered fibrotic changes. Echocardiogram showed preserved LV function, EF 50%, severely thickened wall thickness, with septal flattening in systole, RV severely dilated with TAPSE of 1.1 and finding consistent with Summers sign. Moderate tricuspid regurgitation, RVSP 59 suggestive moderate pulmonary hypertension. Bubble study with agitated saline reported to be grade 2 positive (10-20 bubbles) suggestive of intracardiac shunting. INTERVAL HISTORY: 11/13/2023 I have seen and examined the patient personally. I have reviewed the lab and images from this morning. The patient currently on 4 L/min salter nasal cannula. She was saturating 88 to 90% and she reports having difficulty breathing initially with ambulation. She is status post mechanical thrombectomy by vascular surgery team. Switch to oral anticoagulation. Antibiotic for community-acquired pneumonia. REVIEW OF SYSTEMS: Review of Systems Constitutional: Positive for fatigue. Negative for fever. HENT: Negative for voice change. Eyes: Negative for visual disturbance. Respiratory: Positive for shortness of breath. Negative for chest tightness. Gastrointestinal: Negative for abdominal pain, diarrhea and vomiting. Genitourinary: Negative for dysuria and urgency. Musculoskeletal: Negative for joint swelling. Allergic/Immunologic: Negative for environmental allergies and immunocompromised state. Neurological: Positive for weakness. Hematological: Negative for adenopathy. Does not bruise/bleed easily. Psychiatric/Behavioral: Negative for behavioral problems. OBJECTIVE VITAL SIGNS: LAST: BP (!) 86/60 Pulse 71 Temp 98.2 F (36.8 C) (Oral) Resp 18 Ht 1.676 m (5' 5.98 ) Wt 78.4 kg (172 lb 13.5 oz) SpO2 91% BMI 27.91 kg/m 8-24 HR RANGE: TEMP Temp Av.2 F (36.8 C) Min: 98.1 F (36.7 C) Max: 98.3 F (36.8 C) BP Systolic (24hrs), Av , Min:86 , Max:130 Diastolic (24hrs), Av, Min:54, Max:98 PULSE Pulse Av.8 Min: 69 Max: 89 RR Resp Av Min: 18 Max: 18 O2 SAT SpO2 Av % Min: 91 % Max: 96 % OXYGEN DELIVERY O2 Flow Rate (L/min) Av L/min Min: 4 L/min Max: 4 L/min PHYSICAL EXAM: Physical Exam Constitutional: General: She is awake. Appearance: She is overweight. She is ill-appearing. Interventions: Nasal cannula in place. Comments: HFNC HENT: Head: Normocephalic and atraumatic. Eyes: General: No scleral icterus. Conjunctiva/sclera: Conjunctivae normal. Neck: Vascular: JVD present. Cardiovascular: Rate and Rhythm: Normal rate. Heart sounds: S1 normal and S2 normal. No murmur heard. Pulmonary: Effort: Accessory muscle usage and prolonged expiration present. No respiratory distress. Breath sounds: Decreased air movement present. Rales present. Abdominal: General: Bowel sounds are normal. Palpations: Abdomen is soft. Tenderness: There is no abdominal tenderness. Musculoskeletal: Right lower leg: No edema. Left lower leg: No edema. Skin: Coloration: Skin is not pale. Findings: No rash. Neurological: General: No focal deficit present. Mental Status: She is alert. DATA REVIEW CURRENT MEDICATIONS: Scheduled Meds: sodium bicarbonate 650 mg Oral Daily apixaban 10 mg Oral BID Followed by [START ON 11/19/2023] apixaban 5 mg Oral BID sodium chloride flush 5-40 mL IntraVENous 2 times per day Everolimus 0.75 mg Oral BID predniSONE 10 mg Oral Daily tacrolimus 0.5 mg Oral BID cefTRIAXone (ROCEPHIN) IV 2,000 mg IntraVENous Q24H levothyroxine 125 mcg Oral Daily sodium chloride flush 5-40 mL IntraVENous 2 times per day insulin lispro 0-8 Units SubCUTAneous TID insulin lispro 0-4 Units SubCUTAneous Nightly atorvastatin 40 mg Oral Nightly metoprolol tartrate 25 mg Oral BID Continuous Infusions: sodium chloride sodium chloride dextrose INPUT/OUTPUT: In: 0 [I.V.:0] Out: 2750 [Urine:2750] Date 11/13/23 0000 - 11/13/23 2359 Shift [id number] 9103-9143 4199-4995 24 Hour Total INTAKE I.V.(mL/kg) 557.6(7.1) 509.6(6.5) 1067.2(13.6) Shift Total(mL/kg) 557.6(7.1) 509.6(6.5) 1067.2(13.6) OUTPUT Urine(mL/kg/hr) 1200(1.9) 800 2000 Shift Total(mL/kg) 1200(15.3) 800(10.2) 2000(25.5) Weight (kg) 78.4 78.4 78.4 78.4 LABORATORY RESULTS: BLOOD GASES: No results for input(s): POCPH , POCPCO2 , POCPO2 , POCHCO3 , YAJH0BED in the last 72 hours. COMPLETE BLOOD COUNTS: Recent Labs 11/11/23 0430 11/12/23 0549 WBC 11.2 9.6 HGB 12.1 11.0* HCT 39.1 36.3 MCV 89.3 92.8 PLT 91* 89* LYMPHOPCT 14* 16* RBC 4.38 3.91* MCH 27.6 28.1 MCHC 30.9 30.3 RDW 14.1 13.8 C-REACTIVE PROTEIN: No results for input(s): CRP in the last 72 hours. LACTATE DEHYDROGENASE: No results for input(s): LDH in the last 72 hours. BASIC METABOLIC PROFILE: Recent Labs 11/11/23 04311/12/23 0549 11/13/23 0403 NA 138 138 137 K 4.3 4.0 4.0 CL 108* 106 103 CO2 20 17* 23 BUN 30* 27* 26* CREATININE 3.4* 3.2* 2.8* GLUCOSE 257* 232* 185* MG 2.0 2.0 2.0 LIVER FUNCTION TESTS: No results for input(s): LABALBU , ALT , AST , GGT , ALKPHOS , BILITOT in the last 72 hours. Invalid input(s): PROT COAGULATION PROFILE: No results for input(s): INR , PROTIME , APTT in the last 72 hours. D-DIMER: No results for input(s): DDIMER in the last 72 hours. LACTIC ACID: No results for input(s): LACTA in the last 72 hours. CARDIAC ENZYMES: No results for input(s): CKTOTAL , CKMB , CKMBINDEX , TROPONINI in the last 72 hours. Invalid input(s): TROPONIN , HSTROP BRAIN NATRIURETIC PEPTIDE/PRO-BRAIN NATRURETIC PEPTIDE: No results for input(s): BNP , PROBNP in the last 72 hours. TRIGLYCERIDES: No results for input(s): TRIG in the last 72 hours. MICROBIOLOGY RESULTS: URINE CULTURE: No components found for: CURINE BLOOD CULTURE: No components found for: CBLOOD , CFUNGUSBL SPUTUM CULTURE: No components found for: CSPUTUM No results for input(s): SPUTUM , SPECDESC , SPECIAL , CULTURE , STATUS , ORG , CDIFFTOXPCR , MPNEUM , MPNEUG , CAMPYLOBPCR , SALMONELLAPC , SHIGAPCR , SHIGELLAPCR , LACTOQL in the last 72 hours. Invalid input(s): CURINE , CBLOOD , CFUNGUSBL PATHOLOGY RESULTS: RADIOLOGY REPORTS: Vascular duplex lower extremity venous bilateral Final Result Vascular duplex mesenteric artery Final Result XR CHEST PORTABLE Final Result No acute cardiopulmonary disease. CT CHEST WO CONTRAST Final Result 1. Pericardial effusion as described above. Maximal thickness of pericardial effusion is 1.38 cm. 2. COPD. 3. Minimal scattered fibrotic changes in the lungs as described above. No confluent pneumonia, confluent pulmonary atelectasis or pleural effusions. 4. Atrophic changes in the pancreas. 5. Markedly atrophic left kidney which is not completely visualized. Right kidney not visualized. ECHOCARDIOGRAM: Results for orders placed during the hospital encounter of 11/08/23 Echo (TTE) complete (PRN contrast/bubble/strain/3D) Interpretation Summary Left Ventricle: Preserved left ventricular systolic function. EF by visual approximation is 50%. Left ventricle size is normal. Severely increased wall thickness. Septal flattening in systole consistent with right ventricular pressure overload. Normal wall motion. Normal diastolic function. Right Ventricle: Right ventricle is severely dilated. Severely reduced systolic function. TAPSE is abnormal. TAPSE is 1.1 cm. Findings consistent with Summers's sign. Consider Pulm Embolism Rule Out if not done. Right Ventricle: Right ventricle is severely dilated. Severely reduced systolic function. TAPSE is abnormal. TAPSE is 1.1 cm. Findings consistent with Summers's sign. Aortic Valve: Trileaflet valve. Thickened cusps. Mitral Valve: Trace regurgitation. Tricuspid Valve: Moderate regurgitation. Moderately elevated RVSP, consistent with moderate pulmonary hypertension. The estimated RVSP is 59 mmHg. Interatrial Septum: Grade II Positive (10 to 20 bubbles). Agitated saline study was positive without provocation. Right Atrium: Right atrium is dilated. Pericardium: Trivial circumferential pericardial effusion present. IVC/SVC: IVC diameter is greater than 21 mm and decreases greater than 50% during inspiration; therefore the estimated right atrial pressure is intermediate (~8 mmHg). IVC is dilated. Image quality is technically difficult. ASSESSMENT AND PLAN PROBLEM LIST: Patient Active Problem List Diagnosis Acute hypoxic respiratory failure (HCC) Immunosuppression (HCC) Hypertension History of renal transplant Diabetes mellitus (HCC) Bladder cancer (HCC) DENIZ (acute kidney injury) (HCC) NSTEMI (non-ST elevated myocardial infarction) (HCC) Elevated d-dimer Leukocytosis Shortness of breath Pneumonia of both lungs due to infectious organism Biventricular congestive heart failure (HCC) Aortic atherosclerosis (HCC) Hypoglycemia Pericardial effusion Severe pulmonary hypertension (HCC) Cor pulmonale (HCC) Metabolic acidosis Arterial hypotension Pulmonary embolus (HCC) Debility ASSESSMENT: Acute hypoxic respiratory failure, pulmonary embolism (elevated D-dimer, recent VQ scan was negative), status post mechanical thrombectomy. Moderate pulmonary hypertension, ? CTEPH Cor pulmonale; acute versus acute on chronic CAP Right peroneal vein DVT Positive bubble study with agitated saline, suggestive intra-atrial stenting Mild pericardial effusion Acute kidney injury History of renal transplant; on immunosuppressive therapy Recent hospitalization at [facility] for pneumonia Essential hypertension Diabetes mellitus Obesity Suspected sleep apnea Bladder cancer PLAN: I personally interviewed/examined the patient; reviewed interval history, interpreted all available radiographic and laboratory data at the time of service. Patient is hemodynamically stable Currently saturating well on supplemental oxygen with nasal cannula @ O2 Flow Rate (L/min) Av L/min Min: 4 L/min Max: 4 L/min Continue supplemental oxygen to keep oxygen saturation >90% Status post mechanical thrombectomy on 11/10/2023. Continue anticoagulation, currently on Eliquis encourage incentive spirometry/Acapella Maintain bronchopulmonary hygiene Aspiration precautions Bronchodilators On Abx as per ID recs. Follow-up culture results fluid balance as per nephrology recommendation. Monitor intake/output and electrolytes closely Physical/occupational therapy The patient will need outpatient pulmonary workup with pulmonary function test. Pulmonary team will continue to follow. It was my pleasure to evaluate Ja Tavera today. I would like to thank you for allowing me to participate in the care of this patient. Please feel free to call with any further questions or concerns. We will continue to follow. GREGORY FUNG MD Pulmonary and Critical Care Medicine 11/13/2023, 1:07 PM This note is created with the assistance of a speech recognition program. While intending to generate a document that actually reflects the content of the visit, the document can still have some errors including those of syntax and sound-alike substitutions which may escape proof reading. It such instances, actual meaning can be extrapolated by contextual diversion. Images from the original note were not included. [facility] Office: [phone] Tonny Boyle DO, Henri Martin DO, Jarred Peña DO, Paras Shankar DO, Curtis Sprague MD, Samia Allen MD, Denise Oneal MD, Fatou Robb MD, Juvencio Chacon MD, Melany Sherman MD, Todd Boyle MD, Lashaun Womack DO, Sandy Ma MD, Reilly Miller MD, Brigido Boyle DO, Kaylee Watson MD, Kendell Patterson DO, Alpa White MD, Venessa Jones MD, Elba Garcias MD, Sandra Turner MD, Jarvis Herbert MD, Netta Wall MD, Sue Spencer MD, William Mcknight MD, Harsh Contreras MD, Dara Mitchell MD, Alejandro Arroyo DO, Douglas Ware DO, Bora Ashton DO, Maikel Varma MD, Cindy Daley CNP, Mireille Jaeger CNP, Alejandro Aly CNP, Lynn Reyes DNP, Marilyn Aldana CNP, Yessi Choi CNP, Magalys Bartlett CNP, Saba Skelton OFFICE ASSOCIATE, Lashell Fall, PAWendieC, Lizzie Estes, PAWendieC, Sena Patton CNP, Iker Car, INDIRA, Estee Cueto, INDIRA, Bonnie Bush, INDIRA, Carine Kwan, OFFICE ASSOCIATE, Oksana Perez, ASHLEY, Merlene Castro, INDIRA, Lilliam Conte, INDIRA, Krystal Howard, OFFICE ASSOCIATE [facility] IN-PATIENT SERVICE [facility] Progress Note 11/13/2023 12:53 PM Name: Ja Tavera Acct: [id number] Room: [address] [place] [address] Day: 5 Admit Date: 11/08/2023 7:47 PM PCP: Alejandro Villagran MD Code Status: Full Code Subjective: Patient seen and examined, at bedside, at time of my evaluation she was on 4 L nasal cannula however her oxygen requirement increased with exertion Continue to report difficulty breathing denies any other complaint Lab vital sign consult note reviewed Discussed with RN Brief History: 61-year-old female presented to the hospital for evaluation of shortness of breath and concerns for pulmonary embolism. Patient was recently discharged from [facility] where she was treated for pneumonia after chest x-ray showed bilateral groundglass opacities. At that time VQ scan was negative for PE. On admission, patient underwent echocardiogram which showed an ejection fraction of 50% with right ventricular dilatation and severely reduced systolic function concerning for Summers sign. She also had moderate tricuspid regurgitation along with moderate pulmonary pretension with RVSP of 59 and an IVC diameter 21 mmHg. Patient was admitted seen by vascular surgery due to concerns for pulm embolism. She does have a history of renal transplant and was seen by nephrology as well Medications: Allergies: Allergies Allergen Reactions Aspirin Other (See Comments) Pt states she is allergic bc she is taking immunosuppressants meds that has a reaction to Asprin Ibuprofen Other (See Comments) Pt states she is allergic bc she is taking immunosuppressants meds that has a reaction to Ibuprofen Plavix [Clopidogrel] Other (See Comments) Pt states she is allergic bc she is taking immunosuppressants meds that has a reaction to plavix Amlodipine Rash Current Meds: Scheduled Meds: sodium bicarbonate 650 mg Oral Daily apixaban 10 mg Oral BID Followed by [START ON 11/19/2023] apixaban 5 mg Oral BID sodium chloride flush 5-40 mL IntraVENous 2 times per day Everolimus 0.75 mg Oral BID predniSONE 10 mg Oral Daily tacrolimus 0.5 mg Oral BID cefTRIAXone (ROCEPHIN) IV 2,000 mg IntraVENous Q24H levothyroxine 125 mcg Oral Daily sodium chloride flush 5-40 mL IntraVENous 2 times per day insulin lispro 0-8 Units SubCUTAneous TID WC insulin lispro 0-4 Units SubCUTAneous Nightly atorvastatin 40 mg Oral Nightly metoprolol tartrate 25 mg Oral BID Continuous Infusions: sodium chloride sodium chloride dextrose PRN Meds: perflutren lipid microspheres, naloxone 0.4 mg in 10 mL sodium chloride syringe, sodium chloride flush, sodium chloride, sodium chloride flush, sodium chloride, ondansetron OR ondansetron, polyethylene glycol, acetaminophen OR acetaminophen, glucose, dextrose bolus OR dextrose bolus, glucagon (rDNA), dextrose Data: Vitals: BP 121/70 Pulse 71 Temp 98.2 F (36.8 C) (Oral) Resp 18 Ht 1.676 m (5' 5.98 ) Wt 78.4 kg (172 lb 13.5 oz) SpO2 96% BMI 27.91 kg/m Temp (24hrs), Av.2 F (36.8 C), Min:98.1 F (36.7 C), Max:98.3 F (36.8 C) Recent Labs 11/12/23 1719 11/12/23 1932 11/13/23 0835 11/13/23 1220 POCGLU 311* 358* 139* 276* I/O (24Hr): Intake/Output Summary (Last 24 hours) at 11/13/2023 1253 Last data filed at 11/13/2023 1227 Gross per 24 hour Intake 1952.29 ml Output 2700 ml Net -747.71 ml Labs: Hematology: Recent Labs 11/11/23 0430 11/12/23 0549 WBC 11.2 9.6 RBC 4.38 3.91* HGB 12.1 11.0* HCT 39.1 36.3 MCV 89.3 92.8 MCH 27.6 28.1 MCHC 30.9 30.3 RDW 14.1 13.8 PLT 91* 89* MPV 11.5 11.7 Chemistry: Recent Labs 11/11/23 0430 11/12/23 0549 11/13/23 0403 NA 138 138 137 K 4.3 4.0 4.0 CL 108* 106 103 CO2 20 17* 23 GLUCOSE 257* 232* 185* BUN 30* 27* 26* CREATININE 3.4* 3.2* 2.8* MG 2.0 2.0 2.0 ANIONGAP 10 15 11 LABGLOM 15* 16* 18* CALCIUM 7.6* 7.9* 8.0* Recent Labs 11/12/23 0951 11/12/23 1108 11/12/23 1719 11/12/23 1932 11/13/23 0835 11/13/23 1220 POCGLU 197* 178* 311* 358* 139* 276* ABG: Lab Results Component Value Date/Time POCPH 7.458 11/09/2023 06:22 AM POCPCO2 29.6 11/09/2023 06:22 AM POCPO2 84.8 11/09/2023 06:22 AM POCHCO3 21.0 11/09/2023 06:22 AM NBEA 1.7 11/09/2023 06:22 AM [id number] 97.1 11/09/2023 06:22 AM FIO2 INFORMATION NOT PROVIDED 11/09/2023 11:11 AM Lab Results Component Value Date/Time SPECIAL R ARM 1ML 11/08/2023 10:05 PM Lab Results Component Value Date/Time CULTURE NO GROWTH 4 DAYS 11/08/2023 10:05 PM Radiology: CT CHEST WO CONTRAST Result Date: 11/08/2023 1. Pericardial effusion as described above. Maximal thickness of pericardial effusion is 1.38 cm. 2. COPD. 3. Minimal scattered fibrotic changes in the lungs as described above. No confluent pneumonia, confluent pulmonary atelectasis or pleural effusions. 4. Atrophic changes in the pancreas. 5. Markedly atrophic left kidney which is not completely visualized. Right kidney not visualized. Physical Examination: General appearance: alert, cooperative and uncomfortable appearing female Mental Status: oriented to person, place and time and normal affect Lungs: Diminished breath sounds at the bases bilaterally, normal effort, on high flow nasal cannula Heart: regular rate and rhythm, no murmur Abdomen: soft, nontender, nondistended, normal bowel sounds, no masses, hepatomegaly, splenomegaly Extremities: no edema, redness, tenderness in the calves Skin: no gross lesions, rashes, induration Assessment: Hospital Problems Last Modified POA * (Principal) Acute hypoxic respiratory failure (HCC) 11/08/2023 Yes Immunosuppression (HCC) 11/08/2023 Yes Hypertension 11/08/2023 Yes History of renal transplant 11/08/2023 Yes Diabetes mellitus (HCC) 11/08/2023 Yes Bladder cancer (HCC) 11/08/2023 Yes DENIZ (acute kidney injury) (HCC) 11/08/2023 Yes NSTEMI (non-ST elevated myocardial infarction) (HCC) 11/08/2023 Yes Elevated d-dimer 11/08/2023 Yes Leukocytosis 11/08/2023 Yes Shortness of breath 11/09/2023 Yes Pneumonia of both lungs due to infectious organism 11/09/2023 Yes Biventricular congestive heart failure (HCC) 11/09/2023 Yes Aortic atherosclerosis (HCC) 11/09/2023 Yes Hypoglycemia 11/09/2023 Yes Pericardial effusion 11/09/2023 Yes Severe pulmonary hypertension (HCC) 11/11/2023 Yes Cor pulmonale (HCC) 11/09/2023 Yes Metabolic acidosis 11/09/2023 Yes Arterial hypotension 11/09/2023 Yes Pulmonary embolus (HCC) 11/10/2023 Yes Debility 11/13/2023 Yes Plan: Acute hypoxic respiratory failure requiring oxygen supplement, continue with oxygen supplement wean off as tolerated ,symptoms could be due to pneumonia versus pulmonary embolism, 2D echo with Summers sign concerning for PE, was on heparin we will switch to oral Eliquis, vascular and pulmonology is following appreciate input, ,S/P thrombectomy of pulmonary artery 11/10/2023 , continue IV ceftriaxone end of treatment 11-15-2023, appreciate ID input Hypotension patient blood pressure remains soft however maps remained above 65, will continue to monitor Acute kidney injury on chronic kidney disease continue to monitor BMP, avoid nephrotoxic agent, nephrology is following appreciate input S/p renal transplant on tacrolimus everolimus and prednisone continue Diabetes continue with insulin sliding scale diabetic diet and glucose check Bladder cancer on IV chemotherapy, patient to follow-up with oncology Abnormal TSH TSH 0.03, T4: 2. Decrease dose of synthroid Medical Decision Making: High William Mcknight MD 11/13/2023 12:53 PM Images from the original note were not included. [facility] - Progress Note Today's Date and Time: 11/13/2023, 12:10 PM Impression : Pneumonia Bladder cancer, IV chemotherapy perform monthly Renal transplant 2006, on tacrolimus, everolimus and prednisone Type 2 diabetes mellitus, insulin-dependent Hypertension Pulmonary embolism S/P thrombectomy of pulmonary artery 11/10/2023 Recommendations: Ceftriaxone 2 gm IV q 24 hr. Stop date 11-15-23 Medical Decision Making/Summary/Discussion:11/13/19 Elements of Medical Decision Making: Note: I have independently performed the steps listed below as part of the medical decision making and evaluation. Examined and discussed with patient. Possible pneumonia CHF with very high ProBNP Bladder cancer, IV chemotherapy, receives monthly Renal transplant 2006, on tacrolimus, everolimus and prednisone Type 2 diabetes mellitus, insulin-dependent Essential Hypertension Pulmonary embolus S/P thrombectomy of pulmonary artery 11/10/2023 Labs, medications, radiologic studies were reviewed with personal review of films Radiologic studies Lab work ProBNP: [id number] Cultures Blood: No growth Large amounts of data were reviewed Recent admissions at [facility] and [place] Evaluated for SOB Found to have bronchiolitis by CT There was also concern for pulmonary consolidation Treated with ceftriaxone and azythromycin Subsequently seen at [place] with worsening SOB Transferred to [facility] Cardiac cath scheduled on 11-10-23 Discussed with nursing Staff, capacity planner Dr Mcknight's service Infection Control and Prevention measures reviewed [place] precaution All prior entries were reviewed Administer medications as ordered Zosyn D/C Linezolid D/C Ceftriaxone 2 gm IV q 24 hr Prognosis: Guarded Discharge planning reviewed Follow up as outpatient. Eduardo Muhammad MD. 11/10/2023 Infection Control Recommendations [place] Precautions Antimicrobial Stewardship Recommendations Simplification of therapy Targeted therapy PK dosing Coordination of Outpatient Care: Estimated Length of IV antimicrobials:TBD Patient will need Midline Catheter Insertion: TBD Patient will need PICC line Insertion:TBD Patient will need: Home IV , Infusion Center, SNF, LTAC: TBD Patient will need outpatient wound care: No Chief complaint/reason for consultation: Pneumonia, unclear etiology History of Present Illness: Ja Tavera is a 63 y.o.-year-old female who was initially admitted on 11/08/2023. Patient seen at the request of . INITIAL HISTORY: Patient was originally seen at [facility] for progressive worsening shortness of breath. Her PCP encouraged her to go to the ED. Patient was desatting on room air 88 to 91% and was placed on 2 L of oxygen. A chest x-ray showed consolidation. CT chest showed subtle groundglass changes within the lingula this was likely infectious bronchiolitis. Patient had an elevated D-dimer at this time. Patient was started on heparin, IV Rocephin and IV azithromycin. Patient had a VQ scan which came back negative for PE and the heparin was discontinued on 10/19. Patient was discharged home on cefpodoxime mean for 3 days. Patient was worked up for cryptococcus and Q fever [place] and [place]. However this workup came back negative for atypical infection. Upon discharge she was sent home on 3 L of continuous oxygen. Patient was brought back to the ED for continual shortness of breath. Her oxygen was increased from 3 L to 5 L. EKG was performed and showed right ventricular hypertrophy consistent with pulmonary disease. Patient was transferred to [facility] for further management. Patient is currently on IV linezolid and IV Zosyn. CURRENT EVALUATION 11/13/2023 BP 121/70 Pulse 71 Temp 98.2 F (36.8 C) (Oral) Resp 18 Ht 1.676 m (5' 5.98 ) Wt 78.4 kg (172 lb 13.5 oz) SpO2 96% BMI 27.91 kg/m Patient transferred out of the ICU. Afebrile VS stable Patient feels better No complaints She is a still exhibiting some dyspnea on exertion No new issues reported Renal function improving slowly Medications reviewed: On ceftriaxone Patient not experiencing any difficulties with the medication Patient on high flow 02 Flow rate 35-->6-->4 -->6 L/min Underwent pulmonary artery thrombectomy 11-10-23 Overall has improved and has been able to move out of the ICU Labs, X rays reviewed: 11/13/2023 BUN: 35-->28-->30-->27-->26 Cr: 2.7-->3.5-->3.4-->3.2-->2.8 WBC: 10.2-->9.8-->11.2-->9.6 Hb: 14.9-->14.2-->12.1-->11 Plat: 98-->91-->89 CRP: proBNP: 21,057 Lactic acid: 2.9 Troponin: 197, 192 Medications reviewed: Ceftriaxone until 11-15-23 Influenza A & B: negative Covid: negative Legionella: negative Strep pneumoniae: negative Cultures: Urine: Blood: 11/08/2023 no growth x 2 Sputum : Wound: MRSA Nares: 11/09/2023: negative Imaging: Chest CT: 11/08/2023 Pericardial effusion, COPD Atrophic changes in the pancreas No confluent pneumonia, conflict pulmonary atelectasis or pleural effusion 11-08-23: Time spent in managing patient: 35 min Problems reviewed and addressed: Acute hypoxic respiratory failure Pulmonary embolus that required mechanical thrombectomy Cor pulmonale DENIZ Renal transplantation with immunocompromised status Essential hypertension Diabetes mellitus type 2 Bladder cancer Obesity Discussed diagnosis, planned studies and treatment plans with patient, RN, family, IM. I have personally reviewed the past medical history, past surgical history, medications, social history, and family history, and I have updated the database accordingly. Past Medical History: Past Medical History: Diagnosis Date Bladder cancer (HCC) Diabetes mellitus (HCC) History of renal transplant Hypertension Immunosuppression (HCC) Past Surgical History: Past Surgical History: Procedure Laterality Date CARDIAC CATHETERIZATION 11/10/2023 KIDNEY TRANSPLANT VASCULAR SURGERY Right 11/10/2023 / THROMBECTOMY MECHANICAL PERCUTANEOUS OF THE PULMONARY ARTERY performed by Keron Ghosh MD at [facility] Medications: sodium bicarbonate 650 mg Oral Daily apixaban 10 mg Oral BID Followed by [START ON 11/19/2023] apixaban 5 mg Oral BID sodium chloride flush 5-40 mL IntraVENous 2 times per day Everolimus 0.75 mg Oral BID predniSONE 10 mg Oral Daily tacrolimus 0.5 mg Oral BID cefTRIAXone (ROCEPHIN) IV 2,000 mg IntraVENous Q24H levothyroxine 125 mcg Oral Daily sodium chloride flush 5-40 mL IntraVENous 2 times per day insulin lispro 0-8 Units SubCUTAneous TID WC insulin lispro 0-4 Units SubCUTAneous Nightly atorvastatin 40 mg Oral Nightly metoprolol tartrate 25 mg Oral BID Social History: Social History Socioeconomic History Marital status: Spouse name: Not on file Number of children: Not on file Years of education: Not on file Highest education level: Not on file Occupational History Not on file Tobacco Use Smoking status: Never Smokeless tobacco: Never Substance and Sexual Activity Alcohol use: Not on file Comment: occasional Drug use: Never Sexual activity: Not on file Other Topics Concern Not on file Social History Narrative Not on file Social Determinants of Health Financial Resource Strain: Low Risk (10/19/2023) Received from [facility] Overall Financial Resource Strain (CARDIA) Difficulty of Paying Living Expenses: Not hard at all Food Insecurity: No Food Insecurity (11/09/2023) Hunger Vital Sign Worried About Running Out of Food in the Last Year: Never true Ran Out of Food in the Last Year: Never true Transportation Needs: Patient Declined (11/09/2023) PRAPARE - Transportation Lack of Transportation (Medical): Patient declined Lack of Transportation (Non-Medical): Patient declined Physical Activity: Not on file Stress: No Stress Concern Present (10/19/2023) Received from [facility] [place] of Occupational Health - Occupational Stress Questionnaire Feeling of Stress : Only a little Social Connections: Moderately Isolated (10/19/2023) Received from [facility] Social Connection and Isolation Panel [NHANES] Frequency of Communication with Friends and Family: More than three times a week Frequency of Social Gatherings with Friends and Family: More than three times a week Attends Adventism Services: Never Active Member of Clubs or Organizations: No Attends Club or Organization Meetings: Never Marital Status: Intimate Partner Violence: Not At Risk (10/19/2023) Received from [facility] Humiliation, Afraid, Rape, and Kick questionnaire Fear of Current or Ex-Partner: No Emotionally Abused: No Physically Abused: No Sexually Abused: No Housing Stability: Patient Declined (11/09/2023) Housing Stability Vital Sign Unable to Pay for Housing in the Last Year: Patient declined Number of Times Moved in the Last Year: 1 Homeless in the Last Year: Patient declined Family History: History reviewed. No pertinent family history. Allergies: Aspirin, Ibuprofen, Plavix [clopidogrel], and Amlodipine Review of Systems: Constitutional: No fevers or chills. No systemic complaints Head: No headaches Eyes: No double vision or blurry vision. No conjunctival inflammation. ENT: No sore throat or runny nose.. No hearing loss, tinnitus or vertigo. Cardiovascular: No chest pain or palpitations.No shortness of breath. No [place]O Lung: No shortness of breath or cough. No sputum production Abdomen: No nausea, vomiting, diarrhea, or abdominal pain.. No cramps. Genitourinary: No increased urinary frequency, or dysuria. No hematuria. No suprapubic or CVA pain Musculoskeletal: No muscle aches or pains. No joint effusions, swelling or deformities Hematologic: No bleeding or bruising. Neurologic: No headache, weakness, numbness, or tingling. Integument: No rash, no ulcers. Psychiatric: No depression. Endocrine: No polyuria, no polydipsia, no polyphagia. Physical Examination : Patient Vitals for the past 8 hrs: BP Temp Temp src Pulse Resp SpO2 Weight 11/13/23 0818 -- -- -- 71 -- 96 % -- 11/13/23 0800 121/70 98.2 F (36.8 C) Oral 69 18 92 % -- 11/13/23 0700 122/82 -- -- 71 -- 96 % -- 11/13/23 0600 124/77 -- -- 70 -- 96 % 78.4 kg (172 lb 13.5 oz) 11/13/23 0510 119/88 -- -- 74 -- 94 % -- 11/13/23 0420 107/71 -- -- 71 -- 97 % -- General Appearance: Awake, alert, and in no apparent distress Head: Normocephalic, no trauma Eyes: Pupils equal, round, reactive to light and accommodation; extraocular movements intact; sclera anicteric; conjunctivae pink. No embolic phenomena. ENT: Oropharynx clear, without erythema, exudate, or thrush. No tenderness of sinuses. Mouth/throat: mucosa pink and moist. No lesions. Dentition in good repair. Neck:Supple, without lymphadenopathy. Thyroid normal, No bruits. Pulmonary/Chest: Clear to auscultation, without wheezes, rales, or rhonchi. No dullness to percussion. Cardiovascular: Regular rate and rhythm without murmurs, rubs, or gallops. Abdomen: Soft, non tender. Bowel sounds normal. No organomegaly All four Extremities: No cyanosis, clubbing, edema, or effusions. Neurologic: No gross sensory or motor deficits. Skin: Warm and dry with good turgor.No signs of peripheral arterial or venous insufficiency. No ulcerations. No open wounds. Medical Decision Making -Laboratory: I have independently reviewed/ordered the following labs: CBC with Differential: Recent Labs 11/11/23 0430 11/12/23 0549 WBC 11.2 9.6 HGB 12.1 11.0* HCT 39.1 36.3 PLT 91* 89* LYMPHOPCT 14* 16* MONOPCT 13* 12 EOSPCT 1 1 BMP: Recent Labs 11/12/23 0549 11/13/23 0403 NA 138 137 K 4.0 4.0 CL 106 103 CO2 17* 23 BUN 27* 26* CREATININE 3.2* 2.8* MG 2.0 2.0 Hepatic Function Panel: No results for input(s): LABALBU , BILIDIR , IBILI , BILITOT , ALKPHOS , ALT , AST in the last 72 hours. Invalid input(s): PROT No results for input(s): RPR in the last 72 hours. No results for input(s): HIV in the last 72 hours. No results for input(s): BC in the last 72 hours. Lab Results Component Value Date/Time RBC 3.91 11/12/2023 05:49 AM WBC 9.6 11/12/2023 05:49 AM Lab Results Component Value Date/Time CREATININE 2.8 11/13/2023 04:03 AM GLUCOSE 185 11/13/2023 04:03 AM Medical Decision Making-Imaging: CT CHEST WO CONTRAST Result Date: 11/09/2023 EXAMINATION: CT OF THE CHEST WITHOUT CONTRAST 11/08/2023 9:15 pm TECHNIQUE: CT of the chest was performed without the administration of intravenous contrast. Multiplanar reformatted images are provided for review. Automated exposure control, iterative reconstruction, and/or weight based adjustment of the mA/kV was utilized to reduce the radiation dose to as low as reasonably achievable. COMPARISON: None HISTORY: ORDERING SYSTEM PROVIDED HISTORY: hypoxia TECHNOLOGIST PROVIDED HISTORY: hypoxia Reason for Exam: hypoxia FINDINGS: Mediastinum: No evidence of hemorrhage or acute process in the mediastinum. No evidence of mediastinal mass or pathologic lymphadenopathy. Thoracic aorta appears to be of normal size. The diameter of the ascending thoracic aorta is 3.36 cm. Cardiac size appears to be within normal limits. There is pericardial effusion. Anterior to left heart the AP thickness of the pericardial effusion is 1.38 cm. At the posteroinferior aspect of left heart the maximal thickness of the pericardial effusion is 1.1 cm. No obvious coronary arterial calcifications demonstrated. Lungs/pleura: Minimal focal fibrotic changes can be identified at the posterolateral base of right pulmonary lower lobe and in the lateral aspect of lateral segment of right pulmonary lower lobe. In the inferior lingula of left lung there are minimal streaky fibrotic or atelectatic changes. At the lateral aspect of the apical segment of right pulmonary upper lobe there are minimal fibrotic changes noted. Rest of lung byrnes are clear. Lungs are mildly hyperinflated suggestive of COPD without any obvious bulla formation. No evidence of pleural effusion or pleural thickening, or pneumothorax or pneumomediastinum. Upper Abdomen: In the visualized upper and midportion of liver there is no focal abnormality or acute process. In visualized upper and midportion of gallbladder there is no definable abnormality. Fundus of gallbladder is not completely included. Spleen appears to be grossly normal. Moderate atrophic changes in the pancreas without acute process. Normal adrenal glands. Visualized upper portion of left kidney appears to be markedly atrophic. Right kidney is not visualized. No evidence of hiatal hernia. No pneumoperitoneum. Soft Tissues/Bones: No evidence of fracture or acute process or any other diagnostic finding in the thoracic spine. No definable fracture or focal abnormality in bilateral ribs or in rest of bony thorax. No acute process in the soft tissues of chest wall. 1. Pericardial effusion as described above. Maximal thickness of pericardial effusion is 1.38 cm. 2. COPD. 3. Minimal scattered fibrotic changes in the lungs as described above. No confluent pneumonia, confluent pulmonary atelectasis or pleural effusions. 4. Atrophic changes in the pancreas. 5. Markedly atrophic left kidney which is not completely visualized. Right kidney not visualized. Echo (TTE) complete (PRN contrast/bubble/strain/3D) Result Date: 11/09/2023 Left Ventricle: Preserved left ventricular systolic function. EF by visual approximation is 50%. Left ventricle size is normal. Severely increased wall thickness. Septal flattening in systole consistent with right ventricular pressure overload. Normal wall motion. Normal diastolic function. Right Ventricle: Right ventricle is severely dilated. Severely reduced systolic function. TAPSE is abnormal. TAPSE is 1.1 cm. Findings consistent with Summers's sign. Consider Pulm Embolism Rule Out if not done. Aortic Valve: Trileaflet valve. Thickened cusps. Mitral Valve: Trace regurgitation. Tricuspid Valve: Moderate regurgitation. Moderately elevated RVSP, consistent with moderate pulmonary hypertension. The estimated RVSP is 59 mmHg. Right Atrium: Right atrium is dilated. Pericardium: Trivial circumferential pericardial effusion present. IVC/SVC: IVC diameter is greater than 21 mm and decreases greater than 50% during inspiration; therefore the estimated right atrial pressure is intermediate (~8 mmHg). IVC is dilated. Image quality is technically difficult. Medical Decision [id number]: Results Procedure Component Value Units Date/Time Infectious Disease Intervention [[id number]] Order Status: Sent Respiratory Panel, Molecular, with COVID-19 (Restricted: peds pts or suitable admitted adults) [[id number]] Collected: 11/09/2345 Order Status: Completed Specimen: Nasopharyngeal Swab Updated: 11/09/23 0908 Specimen Description .NASOPHARYNGEAL SWAB Adenovirus PCR Not Detected Coronavirus 229E PCR Not Detected Coronavirus HKU1 PCR Not Detected Coronavirus NL63 PCR Not Detected Coronavirus OC43 PCR Not Detected SARS-CoV-2, PCR Not Detected Human Metapneumovirus PCR Not Detected Rhino/Enterovirus PCR Not Detected Influenza A by PCR Not Detected Influenza B by PCR Not Detected Parainfluenza 1 PCR Not Detected Parainfluenza 2 PCR Not Detected Parainfluenza 3 PCR Not Detected Parainfluenza 4 PCR Not Detected Resp Syncytial Virus PCR Not Detected Bordetella parapertussis by PCR Not Detected B Pertussis by PCR Not Detected Chlamydia pneumoniae By PCR Not Detected Mycoplasma pneumo by PCR Not Detected Comment: Performed by multiplexed nucleic acid assay. MRSA DNA Probe, Nasal [[id number]] Collected: 11/09/2345 Order Status: Completed Specimen: Nasal Updated: 11/10/23 0849 Specimen Description .NASAL SWAB MRSA, DNA, Nasal NEGATIVE Comment: NEGATIVE: MRSA DNA not detected by nucleic acid amplification. Results should be used as an adjunct to nosocomial control efforts to identify patients needing enhanced precautions. The test is not intended to identify patients with staphylococcal infections. Results should not be used to guide or monitor treatment for MRSA infections. LEGIONELLA ANTIGEN, URINE [[id number]] Collected: 11/08/23 0928 Order Status: Completed Specimen: Urine Updated: 11/09/23 1027 Legionella Pneumophilia Ag, Urine NEGATIVE Comment: L. pneumophila serogroup 1 antigen not detected. A negative result does not exclude infection with Leginella pnemophila serogroup 1 nor does it rule out other microbial-caused respiratory infections of disease caused by other serogroups of Legionella pneumophila. Culture, Blood 1 [[id number]] Collected: 11/08/232204 Order Status: Completed Specimen: Blood Updated: 11/13/2337 Specimen Description .BLOOD Special Requests R ARM 1ML Culture NO GROWTH 4 DAYS Culture, Blood 2 [[id number]] Collected: 11/08/232199 Order Status: Completed Specimen: Blood Updated: 11/13/2331 Specimen Description .BLOOD Special Requests R HAND 6ML Culture NO GROWTH 4 DAYS Culture, Respiratory [[id number]] Order Status: No result Specimen: Sputum Expectorated Strep Pneumoniae Antigen [[id number]] Collected: 11/08/23 0805 Order Status: Completed Specimen: Urine-clean catch from Urine, clean catch Updated: 11/09/23 1027 Source .URINE Strep pneumo Ag NEGATIVE Comment: Strep pneumoniae antigen not detected Medical Decision Making-Other: Note: Thank you for allowing us to participate in the care of this patient. Please call with questions. Eduardo Muhammad MD Pager: - Office: Physician Progress Note PATIENT: JA TAVERA [facility] #: [id number] : 1960 ADMIT DATE: 11/08/2023 7:47 PM DISCH DATE: RESPONDING PROVIDER #: Zechariah Beatty DO QUERY TEXT: Patient admitted with Acute Respiratory failure. Noted documentation of both NSTEMI as well as Type 2 ID documented If possible, please document in progress notes and discharge summary if you are evaluating and /or treating any of the following: The medical record reflects the following: Risk Factors: DENIZ on CKD, PE, HTN Clinical Indicators: 63 yo F to ED with SOB- Acute respiratory failure with PE. Denies chest pain. Per Cardiology progress notes-' Troponin elevation is likely Type II from hypoxia and right heart strain. No active signs and symptoms of ACS.' Per IM progress notes- ' NSTEMI ' per dated hospital problem list. Trops [id number], BNP [id number] Treatment: s/p medical thrombectomy. Heparin infusion Options provided: -- NSTEMI confirmed and Type 2 ID ruled out -- Type 2 ID confirmed and NSTEMI ruled out -- Other - I will add my own diagnosis -- Disagree - Not applicable / Not valid -- Disagree - Clinically unable to determine / Unknown -- Refer to Clinical Documentation Reviewer PROVIDER RESPONSE TEXT: After study, NSTEMI confirmed and Type 2 ID ruled out. Query created by: Faye Pearson on 11/13/2023 8:11 AM Electronically signed by: Zechariah Beatty DO 11/13/2023 11:08 AM Renal Progress Note Patient : Ja Tavera; 63 y.o. Location: [facility]/1025-01 Attending: William Mcknight* Admit Date: 11/08/2023 Hospital Day: 5 Subjective: Patient seen and examined at bedside. Labs reviewed. Sodium 137, potassium 4.0, chloride 93, bicarb 23, BUN 26, creatinine 2.8, magnesium 2.0, calcium 8.0, tacrolimus level pending. Urine output documented at 1950 cc over 24 hours +1 unmeasured occurrence. History reviewed Known history of ESRD from recurrent UTIs as a child and right nephrectomy as a child, status post 2 haplotype matched living donor kidney transplant at [facility] in 2006, baseline creatinine 2.5-2.7. Is being maintained on prednisone tacrolimus and everolimus. Prior to that was on MMF however she developed bladder cancer in June 2020 and was switched over to everolimus. She been following up with [facility] urology for bladder cancer and has been cancer free also continues to receive local chemotherapy. Came to [facility] hospital in September with shortness of breath. Thought to have a lingular pneumonia. VQ scan was negative at that time. Placed on antibiotics and discharged home. Dyspnea did not improve came back to the hospital at this time to [place]. Echocardiogram showed right ventricular strain. Found to have a PE. Underwent mechanical thrombectomy. Creatinine is gone up slightly to 3.4 nephrology consulted for acute allograft dysfunction Outpatient Medications: Medications Prior to Admission: linagliptin (TRADJENTA) 5 MG tablet, Take 1 tablet by mouth daily Insulin Glargine, 2 Unit Dial, (TOUJEO MAX SOLOSTAR) 300 UNIT/ML SOPN, Inject 55 Units into the skin daily Injection Device for Insulin (INPEN [id number]) KURT, 10 Units by Does not apply route Daily with supper tacrolimus (PROGRAF) 5 MG capsule, Take 1 capsule by mouth 2 times daily Everolimus 0.75 MG TABS, Take 0.75 mg by mouth 2 times daily metoprolol tartrate (LOPRESSOR) 25 MG tablet, Take 1 tablet by mouth 2 times daily predniSONE (DELTASONE) 10 MG tablet, Take 1 tablet by mouth daily levothyroxine (SYNTHROID) 150 MCG tablet, Take 1 tablet by mouth Daily atorvastatin (LIPITOR) 40 MG tablet, Take 1 tablet by mouth nightly PM febuxostat (ULORIC) 40 MG TABS tablet, Take 1 tablet by mouth daily am famotidine (PEPCID) 20 MG tablet, Take 1 tablet by mouth 2 times daily am Multiple Vitamins-Minerals (THERAPEUTIC MULTIVITAMIN-MINERALS) tablet, Take 1 tablet by mouth daily Henderson-3 Fatty Acids (OMEGA-3 FISH OIL) 1000 MG CAPS, Take 2,000 mg by mouth in the morning and 2,000 mg in the evening. loratadine (CLARITIN) 10 MG capsule, Take 1 capsule by mouth daily magnesium oxide (MAG-OX) 400 (240 Mg) MG tablet, Take 1 tablet by mouth nightly PM bimatoprost (LUMIGAN) 0.01 % SOLN ophthalmic drops, Place 1 drop into both eyes nightly PM cycloSPORINE (RESTASIS) 0.05 % ophthalmic emulsion, 1 drop 2 times daily polyethyl glycol-propyl glycol 0.4-0.3 % (SYSTANE) 0.4-0.3 % ophthalmic solution, 1 drop as needed for Dry Eyes Current Medications: Scheduled Meds: apixaban 10 mg Oral BID Followed by [START ON 11/19/2023] apixaban 5 mg Oral BID sodium chloride flush 5-40 mL IntraVENous 2 times per day Everolimus 0.75 mg Oral BID predniSONE 10 mg Oral Daily tacrolimus 0.5 mg Oral BID cefTRIAXone (ROCEPHIN) IV 2,000 mg IntraVENous Q24H levothyroxine 125 mcg Oral Daily sodium chloride flush 5-40 mL IntraVENous 2 times per day insulin lispro 0-8 Units SubCUTAneous TID WC insulin lispro 0-4 Units SubCUTAneous Nightly atorvastatin 40 mg Oral Nightly metoprolol tartrate 25 mg Oral BID Continuous Infusions: sodium bicarbonate 150 mEq in sterile water 1,000 mL infusion 75 mL/hr at 11/13/23 0532 sodium chloride sodium chloride dextrose PRN Meds: perflutren lipid microspheres, naloxone 0.4 mg in 10 mL sodium chloride syringe, sodium chloride flush, sodium chloride, sodium chloride flush, sodium chloride, ondansetron OR ondansetron, polyethylene glycol, acetaminophen OR acetaminophen, glucose, dextrose bolus OR dextrose bolus, glucagon (rDNA), dextrose Input/Output: I/O last 3 completed shifts: In: 3232.2 [I.V.:3232.2] Out: 2200 [Urine:2200]. Patient Vitals for the past 96 hrs (Last 3 readings): Weight 11/13/23 0600 78.4 kg (172 lb 13.5 oz) 11/12/23 0552 76.4 kg (168 lb 6.9 oz) 11/10/23 0533 76.8 kg (169 lb 5 oz) Vital Signs: Temperature: Temp: 98.2 F (36.8 C) TMax: Temp (24hrs), Av.2 F (36.8 C), Min:98.1 F (36.7 C), Max:98.4 F (36.9 C) Respirations: Respirations: 18 Pulse: Pulse: 71 BP: BP: 121/70 BP Range: Systolic (24hrs), Av , Min:95 , Max:124 Diastolic (24hrs), Av, Min:54, Max:88 Physical Examination: General: AAO x 3, speaking in full sentences, no accessory muscle use. HEENT: Atraumatic, normocephalic, no throat congestion, moist mucosa. Eyes: Pupils equal, round and reactive to light, EOMI. Neck: No JVD, no thyromegaly, no lymphadenopathy. Chest: Bilateral vesicular breath sounds, no rales or wheezes, remains on 4 L nasal cannula at this time, patient reports dyspnea on exertion, wears 3 L at home. Cardiac: S1 S2 RR, no murmurs, gallops or rubs, JVP not raised. Abdomen: Soft, non-tender, no masses or organomegaly, BS audible. : No suprapubic or flank tenderness. Neuro: AAO x 3, No FND. SKIN: No rashes, good skin turgor. Extremities: No edema, palpable peripheral pulses, no calf tenderness. Labs: Recent Labs 11/11/23 0430 11/12/23 0549 WBC 11.2 9.6 RBC 4.38 3.91* HGB 12.1 11.0* HCT 39.1 36.3 MCV 89.3 92.8 MCH 27.6 28.1 MCHC 30.9 30.3 RDW 14.1 13.8 PLT 91* 89* MPV 11.5 11.7 BMP: Recent Labs 11/11/23 0430 11/12/23 0549 11/13/23 0403 NA 138 138 137 K 4.3 4.0 4.0 CL 108* 106 103 CO2 20 17* 23 BUN 30* 27* 26* CREATININE 3.4* 3.2* 2.8* GLUCOSE 257* 232* 185* CALCIUM 7.6* 7.9* 8.0* Magnesium: Recent Labs 11/11/23 0430 11/12/23 0549 11/13/23 0403 MG 2.0 2.0 2.0 SPEP: Lab Results Component Value Date/Time ALBCAL 3.6 11/09/2023 12:38 PM ALBPCT 54 11/09/2023 12:38 PM A1PCT 7 11/09/2023 12:38 PM A2PCT 13 11/09/2023 12:38 PM BETAPCT 12 11/09/2023 12:38 PM GAMGLOB 0.9 11/09/2023 12:38 PM GGPCT 14 11/09/2023 12:38 PM PATH ELECTRONICALLY SIGNED. ANNE LIN M.D. 11/09/2023 12:38 PM UPEP: Lab Results Component Value Date/Time LABPE 11/09/2023 12:11 PM Elevated protein concentration. Most serum proteins are detected in this urine. Usually observed with markedly increased nonselective glomerular permaeabilty (severe glomerular disease) and/or contamination of urine with blood. A decrease in tubular function cannot be ruled out. Urinalysis/Chemistries: Radiology: CXR: Assessment: 1. Acute allograft dysfunction likely from ATN from contrast exposure and depleted circulating volume further aggravated by tacrolimus use. Baseline 2.5-2.7 peaked at 3.4, now down to 3.2 nonoliguric expected to improve 2. 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 Ta 3. Status post living donor donor kidney transplant in 2006 at [facility] being maintained on prednisone tacrolimus and everolimus 4. Acute PE status post mechanical thrombectomy 5. Metabolic acidosis. Plan: 1. Discontinue bicarbonate drip, transition patient to 650 mg sodium bicarb daily. 2. Continue tacrolimus and everolimus and prednisone at current dose 3. Monitor urine output 4. Avoid macrolides, images oral antifungals, nondihydropyridine calcium channel blockers 5. Tacrolimus level pending. Nutrition Please ensure that patient is on a renal diet/TF. Avoid nephrotoxic drugs/contrast exposure. We will continue to follow along with you. Brenda Merlos, MEDICAL TRANSPORT SPECIALIST-OFFICE ASSOCIATE [facility] Attending Physician Statement I have discussed the care of Ja Tavera, including pertinent history and exam findings, with the OFFICE ASSOCIATE. I have reviewed the [place] elements of all parts of the encounter with the OFFICE ASSOCIATE. I agree with the assessment, plan and orders as documented by the OFFICE ASSOCIATE Denys Vasquez MD MD, MRCP (), FACP 11/13/2023 5:37 PM [facility] Images from the original note were not included. [facility] Office: [phone] Tonny Boyle DO, Henri Martin DO, Jarred Peña DO, Paras Shankar DO, Curtis Sprague MD, Samia Allen MD, Denise Oneal MD, Fatou Robb MD, Juvencio Chacon MD, Melany Sherman MD, Todd Boyle MD, Lashaun Womack DO, Sandy Ma MD, Reilly Miller MD, Brigido Boyle DO, Kaylee Watson MD, Kendell Patterson DO, Alpa White MD, Venessa Jones MD, Elba Garcias MD, Sandra Turner MD, Jarvis Herbert MD, Netta Wall MD, Sue Spencer MD, William Mcknight MD, Harsh Contreras MD, Dara Mitchell MD, Alejandro Arroyo, DO, Douglas Ware DO, Bora Ashton DO, Maikel Varma MD, Cindy Daley, OFFICE ASSOCIATE, Mireille Jaeger, OFFICE ASSOCIATE, Alejandro Aly, OFFICE ASSOCIATE, Lynn Reyes, [facility], Marilyn Aldana, OFFICE ASSOCIATE, Yessi Choi, OFFICE ASSOCIATE, Magalys Bartlett, OFFICE ASSOCIATE, Saba Skelton, OFFICE ASSOCIATE, Lashell Fall, PA-C, Lizzie Estes, PA-C, Sena Patton, OFFICE ASSOCIATE, Iker Car, OFFICE ASSOCIATE, Estee Cueto, OFFICE ASSOCIATE, Bonnie Bush, OFFICE ASSOCIATE, Carine Kwan, OFFICE ASSOCIATE, Oksana Perez, [employer], Merlene Castro, OFFICE ASSOCIATE, Lilliam Conte, OFFICE ASSOCIATE, Krystal Howard, OFFICE ASSOCIATE [facility] IN-PATIENT SERVICE [facility] Progress Note 11/12/2023 1:41 PM Name: Ja Tavera Acct: [id number] Room: [address] [place] [address] Day: 4 Admit Date: 11/08/2023 7:47 PM PCP: Alejandro Villagran MD Code Status: Full Code Subjective: Patient was seen and examined at time of my evaluation she was seen sitting on her chair, family at bedside continue to feel better, continue to report shortness of breath with exertion, remain on 7 L nasal cannula, will wean off as tolerated will switch IV heparin to oral Eliquis Lab vital sign consult note reviewed Discussed with RN Brief History: 61-year-old female presented to the hospital for evaluation of shortness of breath and concerns for pulmonary embolism. Patient was recently discharged from [facility] where she was treated for pneumonia after chest x-ray showed bilateral groundglass opacities. At that time VQ scan was negative for PE. On admission, patient underwent echocardiogram which showed an ejection fraction of 50% with right ventricular dilatation and severely reduced systolic function concerning for Summers sign. She also had moderate tricuspid regurgitation along with moderate pulmonary pretension with RVSP of 59 and an IVC diameter 21 mmHg. Patient was admitted seen by vascular surgery due to concerns for pulm embolism. She does have a history of renal transplant and was seen by nephrology as well Medications: Allergies: Allergies Allergen Reactions Aspirin Other (See Comments) Pt states she is allergic bc she is taking immunosuppressants meds that has a reaction to Asprin Ibuprofen Other (See Comments) Pt states she is allergic bc she is taking immunosuppressants meds that has a reaction to Ibuprofen Plavix [Clopidogrel] Other (See Comments) Pt states she is allergic bc she is taking immunosuppressants meds that has a reaction to plavix Amlodipine Rash Current Meds: Scheduled Meds: apixaban 10 mg Oral BID Followed by [START ON 11/19/2023] apixaban 5 mg Oral BID sodium chloride flush 5-40 mL IntraVENous 2 times per day Everolimus 0.75 mg Oral BID predniSONE 10 mg Oral Daily tacrolimus 0.5 mg Oral BID cefTRIAXone (ROCEPHIN) IV 2,000 mg IntraVENous Q24H levothyroxine 125 mcg Oral Daily sodium chloride flush 5-40 mL IntraVENous 2 times per day insulin lispro 0-8 Units SubCUTAneous TID WC insulin lispro 0-4 Units SubCUTAneous Nightly atorvastatin 40 mg Oral Nightly metoprolol tartrate 25 mg Oral BID Continuous Infusions: sodium bicarbonate 150 mEq in sterile water 1,000 mL infusion 75 mL/hr at 11/12/23 1113 sodium chloride sodium chloride dextrose PRN Meds: perflutren lipid microspheres, naloxone 0.4 mg in 10 mL sodium chloride syringe, sodium chloride flush, sodium chloride, sodium chloride flush, sodium chloride, ondansetron OR ondansetron, polyethylene glycol, acetaminophen OR acetaminophen, glucose, dextrose bolus OR dextrose bolus, glucagon (rDNA), dextrose Data: Vitals: BP 103/68 Pulse 75 Temp 98.4 F (36.9 C) (Oral) Resp 22 Ht 1.676 m (5' 5.98 ) Wt 76.4 kg (168 lb 6.9 oz) SpO2 96% BMI 27.20 kg/m Temp (24hrs), Av.4 F (36.9 C), Min:98.1 F (36.7 C), Max:98.6 F (37 C) Recent Labs 11/11/23 1618 11/11/23194111/12/23 0951 11/12/23 1108 POCGLU 247* 280* 197* 178* I/O (24Hr): Intake/Output Summary (Last 24 hours) at 11/12/2023 1341 Last data filed at 11/12/2023 1013 Gross per 24 hour Intake 1789.46 ml Output 250 ml Net 1539.46 ml Labs: Hematology: Recent Labs 11/10/2332111/11/23 04311/12/23 0549 WBC 9.8 11.2 9.6 RBC 5.13* 4.38 3.91* HGB 14.2 12.1 11.0* HCT 44.9 39.1 36.3 MCV 87.5 89.3 92.8 MCH 27.7 27.6 28.1 MCHC 31.6 30.9 30.3 RDW 14.1 14.1 13.8 PLT See Reflexed IPF Result 91* 89* MPV -- 11.5 11.7 Chemistry: Recent Labs 11/10/2332111/11/23 0430 11/12/23 0549 NA 139 138 138 K 3.7 4.3 4.0 CL 109* 108* 106 CO2 19* 20 17* GLUCOSE 64* 257* 232* BUN 28* 30* 27* CREATININE 3.5* 3.4* 3.2* MG 1.9 2.0 2.0 ANIONGAP 11 10 15 LABGLOM 14* 15* 16* CALCIUM 8.3* 7.6* 7.9* Recent Labs 11/11/23 0803 11/11/23 1158 11/11/23161711/11/23194111/12/23 0951 11/12/23 1108 POCGLU 189* 282* 247* 280* 197* 178* ABG: Lab Results Component Value Date/Time POCPH 7.458 11/09/2023 06:22 AM POCPCO2 29.6 11/09/2023 06:22 AM POCPO2 84.8 11/09/2023 06:22 AM POCHCO3 21.0 11/09/2023 06:22 AM NBEA 1.7 11/09/2023 06:22 AM QURE2LKY 97.1 11/09/2023 06:22 AM FIO2 INFORMATION NOT PROVIDED 11/09/2023 11:11 AM Lab Results Component Value Date/Time SPECIAL R ARM 1ML 11/08/2023 10:05 PM Lab Results Component Value Date/Time CULTURE NO GROWTH 3 DAYS 11/08/2023 10:05 PM Radiology: CT CHEST WO CONTRAST Result Date: 11/08/2023 1. Pericardial effusion as described above. Maximal thickness of pericardial effusion is 1.38 cm. 2. COPD. 3. Minimal scattered fibrotic changes in the lungs as described above. No confluent pneumonia, confluent pulmonary atelectasis or pleural effusions. 4. Atrophic changes in the pancreas. 5. Markedly atrophic left kidney which is not completely visualized. Right kidney not visualized. Physical Examination: General appearance: alert, cooperative and uncomfortable appearing female Mental Status: oriented to person, place and time and normal affect Lungs: Diminished breath sounds at the bases bilaterally, normal effort, on high flow nasal cannula Heart: regular rate and rhythm, no murmur Abdomen: soft, nontender, nondistended, normal bowel sounds, no masses, hepatomegaly, splenomegaly Extremities: no edema, redness, tenderness in the calves Skin: no gross lesions, rashes, induration Assessment: Hospital Problems Last Modified POA * (Principal) Acute hypoxic respiratory failure ([facility]) 11/08/2023 Yes Immunosuppression ([facility]) 11/08/2023 Yes Hypertension 11/08/2023 Yes History of renal transplant 11/08/2023 Yes Diabetes mellitus ([facility]) 11/08/2023 Yes Bladder cancer ([facility]) 11/08/2023 Yes DENIZ (acute kidney injury) ([facility]) 11/08/2023 Yes NSTEMI (non-ST elevated myocardial infarction) ([facility]) 11/08/2023 Yes Elevated d-dimer 11/08/2023 Yes Leukocytosis 11/08/2023 Yes Shortness of breath 11/09/2023 Yes Pneumonia of both lungs due to infectious organism 11/09/2023 Yes Biventricular congestive heart failure (HCC) 11/09/2023 Yes Aortic atherosclerosis ([facility]) 11/09/2023 Yes Hypoglycemia 11/09/2023 Yes Pericardial effusion 11/09/2023 Yes Severe pulmonary hypertension (HCC) 11/11/2023 Yes Cor pulmonale (HCC) 11/09/2023 Yes Metabolic acidosis 11/09/2023 Yes Arterial hypotension 11/09/2023 Yes Pulmonary embolus (HCC) 11/10/2023 Yes Plan: Acute hypoxic respiratory failure requiring oxygen supplement, continue with oxygen supplement wean off as tolerated ,symptoms could be due to pneumonia versus pulmonary embolism, 2D echo with Summers sign concerning for PE, was on heparin we will switch to oral Eliquis, vascular and pulmonology is following appreciate input, ,S/P thrombectomy of pulmonary artery 11/10/2023 , continue IV ceftriaxone end of treatment 11-15-2023, appreciate ID input Hypotension patient blood pressure remains soft however maps remained above 65, will continue to monitor Acute kidney injury on chronic kidney disease continue to monitor BMP, avoid nephrotoxic agent, nephrology is following appreciate input S/p renal transplant on tacrolimus everolimus and prednisone continue Diabetes continue with insulin sliding scale diabetic diet and glucose check Bladder cancer on IV chemotherapy, patient to follow-up with oncology Abnormal TSH TSH 0.03, T4: 2. Decrease dose of synthroid Medical Decision Making: High William Mcknight MD 11/12/2023 1:41 PM PHARMACY NOTE: The electrolyte replacement protocol for potassium/magnesium has been discontinued per P&T guidelines because the patient has reduced renal function (CrCl < 30 mL/min). The patient's most recent potassium & magnesium levels are: Recent Labs 11/10/23 0322 11/11/23 0430 11/12/23 0549 K 3.7 4.3 4.0 MG 1.9 2.0 2.0 Estimated Creatinine Clearance: 19 mL/min (A) (based on SCr of 3.2 mg/dL (H)). For patients with decreased renal function (below 30ml/min) needing potassium/magnesium supplementation, please order individual bolus doses with appropriate monitoring. Please contact the inpatient pharmacy with any concerns. Thank you. Joseph Dorado, PharmD, BCCCP 11/12/2023 12:58 PM Images from the original note were not included. PULMONARY & CRITICAL CARE MEDICINE PROGRESS NOTE Patient: Ja Tavera Admit date: 11/08/2023 Primary Care Physician: Alejandro Villagran MD CODE Status: Full Code LOS: 4 SUBJECTIVE CHIEF COMPLAINT/REASON FOR CONSULT: No chief complaint on file. HISTORY OF PRESENT ILLNESS: The patient is a 63 y.o. female with history of diabetes, hypertension, bladder cancer, renal failure, s/p renal transplant; on immunosuppressive therapy (tacrolimus, everolimus and prednisone) of. Patient was recently hospitalized at [facility] with worsening shortness of breath. Patient was referred to ED by her primary care provider noted her to be hypoxemic. During evaluation D-dimer was elevated at 11.36, her CT chest showed subtle groundglass infiltrate involving the lingula. She was started on heparin infusion along with empiric Rocephin/azithromycin. Her VQ scan was reported to be negative after which heparin was discontinued. Patient was discharged on home O2 at 3 L/min. Patient now admitted with worsening shortness of breath. Patient was hypoxemic on presentation and was started on high flow nasal cannula. She denies any history of asthma, COPD or sleep apnea. However reports difficulty in laying flat in the bed. Lab evaluation in the ED shows WBC of 14, hemoglobin 15, creatinine of 2.7, bicarb 20, anion gap of 18, mildly elevated transaminases, proBNP is elevated at 24,370. Respiratory panel is negative. CT chest showed a pericardial effusion with minimal scattered fibrotic changes. Echocardiogram showed preserved LV function, EF 50%, severely thickened wall thickness, with septal flattening in systole, RV severely dilated with TAPSE of 1.1 and finding consistent with Summers sign. Moderate tricuspid regurgitation, RVSP 59 suggestive moderate pulmonary hypertension. Bubble study with agitated saline reported to be grade 2 positive (10-20 bubbles) suggestive of intracardiac shunting. INTERVAL HISTORY: 11/12/2023 I have seen and examined the patient personally. I have reviewed the lab and images from this morning. The patient currently on 6 L/min salter nasal cannula. She is status post mechanical thrombectomy by vascular surgery team. Patient reports feeling much better in comparison with her breathing before the procedure. She is switching to Eliquis today. REVIEW OF SYSTEMS: Review of Systems Constitutional: Positive for fatigue. Negative for fever. HENT: Negative for voice change. Eyes: Negative for visual disturbance. Respiratory: Positive for shortness of breath. Negative for chest tightness. Gastrointestinal: Negative for abdominal pain, diarrhea and vomiting. Genitourinary: Negative for dysuria and urgency. Musculoskeletal: Negative for joint swelling. Allergic/Immunologic: Negative for environmental allergies and immunocompromised state. Neurological: Positive for weakness. Hematological: Negative for adenopathy. Does not bruise/bleed easily. Psychiatric/Behavioral: Negative for behavioral problems. OBJECTIVE VITAL SIGNS: LAST: BP 103/68 Pulse 75 Temp 98.4 F (36.9 C) (Oral) Resp 22 Ht 1.676 m (5' 5.98 ) Wt 76.4 kg (168 lb 6.9 oz) SpO2 96% BMI 27.20 kg/m 8-24 HR RANGE: TEMP Temp Av.4 F (36.9 C) Min: 98.1 F (36.7 C) Max: 98.6 F (37 C) BP Systolic (24hrs), Av , Min:99 , Max:138 Diastolic (24hrs), Av, Min:60, Max:100 PULSE Pulse Av Min: 69 Max: 98 RR Resp Av Min: 22 Max: 22 O2 SAT SpO2 Av % Min: 85 % Max: 98 % OXYGEN DELIVERY O2 Flow Rate (L/min) Av L/min Min: 6 L/min Max: 6 L/min PHYSICAL EXAM: Physical Exam Constitutional: General: She is awake. Appearance: She is overweight. She is ill-appearing. Interventions: Nasal cannula in place. Comments: HFNC HENT: Head: Normocephalic and atraumatic. Eyes: General: No scleral icterus. Conjunctiva/sclera: Conjunctivae normal. Neck: Vascular: JVD present. Cardiovascular: Rate and Rhythm: Normal rate. Heart sounds: S1 normal and S2 normal. No murmur heard. Pulmonary: Effort: Accessory muscle usage and prolonged expiration present. No respiratory distress. Breath sounds: Decreased air movement present. Rales present. Abdominal: General: Bowel sounds are normal. Palpations: Abdomen is soft. Tenderness: There is no abdominal tenderness. Musculoskeletal: Right lower leg: No edema. Left lower leg: No edema. Skin: Coloration: Skin is not pale. Findings: No rash. Neurological: General: No focal deficit present. Mental Status: She is alert. DATA REVIEW CURRENT MEDICATIONS: Scheduled Meds: apixaban 10 mg Oral BID Followed by [START ON 11/19/2023] apixaban 5 mg Oral BID sodium chloride flush 5-40 mL IntraVENous 2 times per day Everolimus 0.75 mg Oral BID predniSONE 10 mg Oral Daily tacrolimus 0.5 mg Oral BID cefTRIAXone (ROCEPHIN) IV 2,000 mg IntraVENous Q24H levothyroxine 125 mcg Oral Daily sodium chloride flush 5-40 mL IntraVENous 2 times per day insulin lispro 0-8 Units SubCUTAneous TID WC insulin lispro 0-4 Units SubCUTAneous Nightly atorvastatin 40 mg Oral Nightly metoprolol tartrate 25 mg Oral BID Continuous Infusions: sodium bicarbonate 150 mEq in sterile water 1,000 mL infusion 75 mL/hr at 11/12/23 1113 sodium chloride sodium chloride dextrose INPUT/OUTPUT: In: 2398.5 [I.V.:2398.5] Out: 250 [Urine:250] Date 11/12/23 0000 - 11/12/23 2359 Shift [id number] 5838-4723 7015-7144 24 Hour Total INTAKE I.V.(mL/kg) 1471.8(19.3) 317.7(4.2) 1789.5(23.4) Shift Total(mL/kg) 1471.8(19.3) 317.7(4.2) 1789.5(23.4) OUTPUT Shift Total(mL/kg) Weight (kg) 76.4 76.4 76.4 76.4 LABORATORY RESULTS: BLOOD GASES: No results for input(s): POCPH , POCPCO2 , POCPO2 , POCHCO3 , IZDW2AMO in the last 72 hours. COMPLETE BLOOD COUNTS: Recent Labs 11/10/23 0322 11/11/23 0430 11/12/23 0549 WBC 9.8 11.2 9.6 HGB 14.2 12.1 11.0* HCT 44.9 39.1 36.3 MCV 87.5 89.3 92.8 PLT See Reflexed IPF Result 91* 89* LYMPHOPCT 20* 14* 16* RBC 5.13* 4.38 3.91* MCH 27.7 27.6 28.1 MCHC 31.6 30.9 30.3 RDW 14.1 14.1 13.8 C-REACTIVE PROTEIN: No results for input(s): CRP in the last 72 hours. LACTATE DEHYDROGENASE: No results for input(s): LDH in the last 72 hours. BASIC METABOLIC PROFILE: Recent Labs 11/10/23 0322 11/11/23 0430 11/12/23 0549 NA 139 138 138 K 3.7 4.3 4.0 CL 109* 108* 106 CO2 19* 20 17* BUN 28* 30* 27* CREATININE 3.5* 3.4* 3.2* GLUCOSE 64* 257* 232* MG 1.9 2.0 2.0 LIVER FUNCTION TESTS: No results for input(s): LABALBU , ALT , AST , GGT , ALKPHOS , BILITOT in the last 72 hours. Invalid input(s): PROT COAGULATION PROFILE: No results for input(s): INR , PROTIME , APTT in the last 72 hours. D-DIMER: No results for input(s): DDIMER in the last 72 hours. LACTIC ACID: No results for input(s): LACTA in the last 72 hours. CARDIAC ENZYMES: No results for input(s): CKTOTAL , CKMB , CKMBINDEX , TROPONINI in the last 72 hours. Invalid input(s): TROPONIN , HSTROP BRAIN NATRIURETIC PEPTIDE/PRO-BRAIN NATRURETIC PEPTIDE: No results for input(s): BNP , PROBNP in the last 72 hours. TRIGLYCERIDES: No results for input(s): TRIG in the last 72 hours. MICROBIOLOGY RESULTS: URINE CULTURE: No components found for: CURINE BLOOD CULTURE: No components found for: CBLOOD , CFUNGUSBL SPUTUM CULTURE: No components found for: CSPUTUM No results for input(s): SPUTUM , SPECDESC , SPECIAL , CULTURE , STATUS , ORG , CDIFFTOXPCR , MPNEUM , MPNEUG , CAMPYLOBPCR , SALMONELLAPC , SHIGAPCR , SHIGELLAPCR , LACTOQL in the last 72 hours. Invalid input(s): CURINE , CBLOOD , CFUNGUSBL PATHOLOGY RESULTS: RADIOLOGY REPORTS: Vascular duplex lower extremity venous bilateral Final Result Vascular duplex mesenteric artery Final Result XR CHEST PORTABLE Final Result No acute cardiopulmonary disease. CT CHEST WO CONTRAST Final Result 1. Pericardial effusion as described above. Maximal thickness of pericardial effusion is 1.38 cm. 2. COPD. 3. Minimal scattered fibrotic changes in the lungs as described above. No confluent pneumonia, confluent pulmonary atelectasis or pleural effusions. 4. Atrophic changes in the pancreas. 5. Markedly atrophic left kidney which is not completely visualized. Right kidney not visualized. ECHOCARDIOGRAM: Results for orders placed during the hospital encounter of 11/08/23 Echo (TTE) complete (PRN contrast/bubble/strain/3D) Interpretation Summary Left Ventricle: Preserved left ventricular systolic function. EF by visual approximation is 50%. Left ventricle size is normal. Severely increased wall thickness. Septal flattening in systole consistent with right ventricular pressure overload. Normal wall motion. Normal diastolic function. Right Ventricle: Right ventricle is severely dilated. Severely reduced systolic function. TAPSE is abnormal. TAPSE is 1.1 cm. Findings consistent with Summers's sign. Consider Pulm Embolism Rule Out if not done. Right Ventricle: Right ventricle is severely dilated. Severely reduced systolic function. TAPSE is abnormal. TAPSE is 1.1 cm. Findings consistent with Summers's sign. Aortic Valve: Trileaflet valve. Thickened cusps. Mitral Valve: Trace regurgitation. Tricuspid Valve: Moderate regurgitation. Moderately elevated RVSP, consistent with moderate pulmonary hypertension. The estimated RVSP is 59 mmHg. Interatrial Septum: Grade II Positive (10 to 20 bubbles). Agitated saline study was positive without provocation. Right Atrium: Right atrium is dilated. Pericardium: Trivial circumferential pericardial effusion present. IVC/SVC: IVC diameter is greater than 21 mm and decreases greater than 50% during inspiration; therefore the estimated right atrial pressure is intermediate (~8 mmHg). IVC is dilated. Image quality is technically difficult. ASSESSMENT AND PLAN PROBLEM LIST: Patient Active Problem List Diagnosis Acute hypoxic respiratory failure (HCC) Immunosuppression (HCC) Hypertension History of renal transplant Diabetes mellitus (HCC) Bladder cancer (HCC) DENIZ (acute kidney injury) (HCC) NSTEMI (non-ST elevated myocardial infarction) (HCC) Elevated d-dimer Leukocytosis Shortness of breath Pneumonia of both lungs due to infectious organism Biventricular congestive heart failure (HCC) Aortic atherosclerosis (HCC) Hypoglycemia Pericardial effusion Severe pulmonary hypertension (HCC) Cor pulmonale (HCC) Metabolic acidosis Arterial hypotension Pulmonary embolus (HCC) ASSESSMENT: Acute hypoxic respiratory failure, pulmonary embolism (elevated D-dimer, recent VQ scan was negative), status post mechanical thrombectomy. Moderate pulmonary hypertension, ? CTEPH Cor pulmonale; acute versus acute on chronic CAP Right peroneal vein DVT Positive bubble study with agitated saline, suggestive intra-atrial stenting Mild pericardial effusion Acute kidney injury History of renal transplant; on immunosuppressive therapy Recent hospitalization at [facility] for pneumonia Essential hypertension Diabetes mellitus Obesity Suspected sleep apnea Bladder cancer PLAN: I personally interviewed/examined the patient; reviewed interval history, interpreted all available radiographic and laboratory data at the time of service. Patient is hemodynamically stable Currently saturating well on supplemental oxygen with nasal cannula @ O2 Flow Rate (L/min) Av L/min Min: 6 L/min Max: 6 L/min Continue supplemental oxygen to keep oxygen saturation >90% Status post mechanical thrombectomy on 11/10/2023. Continue anticoagulation, switching to Eliquis today. Encourage incentive spirometry/Acapella Maintain bronchopulmonary hygiene Aspiration precautions Bronchodilators On Abx as per ID recs. Follow-up culture results fluid balance as per nephrology recommendation. Monitor intake/output and electrolytes closely Physical/occupational therapy The patient will need outpatient pulmonary workup with pulmonary function test. Pulmonary team will continue to follow. It was my pleasure to evaluate Ja Tavera today. I would like to thank you for allowing me to participate in the care of this patient. Please feel free to call with any further questions or concerns. We will continue to follow. GREGORY FUNG MD Pulmonary and Critical Care Medicine 11/12/2023, 12:07 PM This note is created with the assistance of a speech recognition program. While intending to generate a document that actually reflects the content of the visit, the document can still have some errors including those of syntax and sound-alike substitutions which may escape proof reading. It such instances, actual meaning can be extrapolated by contextual diversion. Facility/Department: [facility] CAR 1- SICU Occupational Therapy Initial Evaluation Patient Name: Ja Tavera : 1960 Date of Service: 11/12/2023 No chief complaint on file. Discharge Recommendations Discharge Recommendations: Patient would benefit from continued therapy after discharge OT Equipment Recommendations Equipment Needed: No Assessment Performance deficits / Impairments: Decreased functional mobility ;Decreased ADL status;Decreased endurance;Decreased high-level IADLs Assessment: Pt requires increased time for functional tasks this date d/t SOB, requring rest breaks and pursed lip breathing to maintain and improve O2 saturations on 5L O2 this date. Pt would benefit from continued therapy prior to and following discharge from acute setting to increase safety and IND in self care. Prognosis: Good Decision Making: Medium Complexity REQUIRES OT FOLLOW-UP: Yes Activity Tolerance Activity Tolerance: Patient Tolerated treatment well Safety Devices Type of Devices: Left in chair;Call light within reach;Gait belt;Nurse notified;Heels elevated for pressure relief Restraints Restraints Initially in Place: No Restrictions/Precautions Restrictions/Precautions Required Braces or Orthoses?: No Position Activity Restriction Other position/activity restrictions: up with assist, s/p: mechanical thrombectomy on 11/09. Subjective General Patient assessed for rehabilitation services?: Yes Family / Caregiver Present: Yes () General Comment Comments: RN okayed for therapy. Pt agreeable and cooperative throughout, denies pain. 5L O2 this date Home Setup/Prior Level of Function Social/Functional History Lives With: Spouse Type of Home: House Home Layout: Two level;Able to Live on Main level with bedroom/bathroom Home Access: Ramped entrance Bathroom Shower/Tub: Walk-in shower Bathroom Toilet: Standard Bathroom Equipment: Shower chair;Toilet raiser Home Equipment: Walker - Rolling;Oxygen;Cane (no DME use at a baseline.) Has the patient had two or more falls in the past year or any fall with injury in the past year?: No ADL Assistance: Independent (independent, requires breaks) Homemaking Assistance: Independent (independent, requires breaks) Homemaking Responsibilities: Yes (shares with ) Ambulation Assistance: Independent Transfer Assistance: Independent Active Commissary Representative: Yes Mode of Transportation: Car 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 Vision/Hearing Vision Vision: Impaired Vision Exceptions: Wears glasses at all times Hearing Hearing: Within functional limits BUE Assessment Gross Assessment AROM: Within functional limits Strength: Within functional limits (4+/5 BUE grossly) Coordination: Within functional limits (R handed) Tone: Normal Sensation: Intact Objective Orientation Overall Orientation Status: Within Functional Limits Cognition Overall Cognitive Status: WFL Activities of Daily Living Feeding: Independent Grooming: Modified independent ;Increased time to complete UE Bathing: Stand by assistance;Increased time to complete LE Bathing: Stand by assistance;Increased time to complete UE Dressing: Independent LE Dressing: Stand by assistance;Increased time to complete LE Dressing Skilled Clinical Factors: Pt demo functional reach to mange socks. pt educated on figure four positioning to limit forward flexion for management of SOB Toileting: Stand by assistance;Increased time to complete Toileting Skilled Clinical Factors: Assist for transfer to toilet and hygiene following urination/bowel movement. Increased time needed d/t SOB with pt educated on rest break and pursed lip breathing to recover prior to progression of task and transfering back to recliner from toilet. Good return with pt requiring several minutes prior to transfer from toilet to recover. Additional Comments: Scores based on clinical reasoning unless otherwise stated. Pt limited by endurance impacting performance. Pt desaturating easily with activity to mid 80% range on 5L O2. Educated on modified techniques for ADL tasks, pacing, and deep breathing to maintain. Balance Balance Sitting: Intact (SBA edge of recliner) Standing: Without support (SBA without device use. ~3 mins longest trial. x2 trials) Transfers/Mobility Bed mobility Bed Mobility Comments: Pt in recliner upon entering and exiting. Transfers Sit to stand: Stand by assistance Stand to sit: Stand by assistance Transfer Comments: No device use Toilet Transfers Toilet - Technique: Ambulating Equipment Used: Standard toilet Toilet Transfer: Stand by assistance Toilet Transfers Comments: No grab bar use Functional Mobility: Stand by assistance Functional Mobility Skilled Clinical Factors: no AE use. Steady throughout with increased SOB upon return to recliner. SpO2 levels 87-92% as pt recovers from short mobility from bathroom. Several minutes needed recover Patient Education Patient Education Education Given To: Patient Education Provided: Role of Therapy;Plan of Care;Energy Conservation;Transfer Training;ADL Adaptive Strategies Education Method: Verbal Barriers to Learning: None Education Outcome: Verbalized understanding;Demonstrated understanding Goals Short Term Goals Time Frame for Short Term Goals: By discharge; Pt will Short Term Goal 1: Complete UB ADL's Mod-I with modified techniques/increased time as needed to maintain O2 saturation >90% Short Term Goal 2: Complete LB ADL's Mod-I with AE/DME/modified techniques as needed to maintain O2 saturation >90% Short Term Goal 3: Demo Good safety throughout session without cuing inclduing implementing EC/WS techniques as needed throughout session Short Term Goal 4: Complete functional transfers/mobility Mod-I with increased time/rest breaks as needed Short Term Goal 5: Tolerate standing 5+ mins at Supervision to engage in functional tasks Plan Occupational Therapy Plan Times Per Week: 3-4x/week Current Treatment Recommendations: Functional mobility training, Safety education & training, Patient/Caregiver education & training, Equipment evaluation, education, & procurement, Self-Care / ADL, Home management training, Endurance training [facility] Daily Activities Inpatient [facility] Daily Activity - Inpatient How much help is needed for putting on and taking off regular lower body clothing?: A Little How much help is needed for bathing (which includes washing, rinsing, drying)?: A Little How much help is needed for toileting (which includes using toilet, bedpan, or urinal)?: A Little How much help is needed for putting on and taking off regular upper body clothing?: A Little How much help is needed for taking care of personal grooming?: None How much help for eating meals?: None [facility] Inpatient Daily Activity Raw Score: 20 [facility] Inpatient ADL T-Scale Score : 42.03 ADL Inpatient CMS 0-100% Score: 38.32 ADL Inpatient CMS G-Code Modifier : CJ Minutes OT Individual Minutes Time In: 909 Time Out: 939 Minutes: 30 Time Code Minutes Timed Code Treatment Minutes: 23 Minutes Physical Therapy Facility/Department: [facility] CAR 1- SICU Physical Therapy Daily Treatment Note Name: Ja Tavera : 1960 Date of Service: 11/12/2023 Discharge Recommendations: Patient would benefit from continued therapy after discharge Further therapy recommended at discharge.The patient should be able to tolerate at least 3 hours of therapy per day over 5 days or 15 hours over 7 days. This patient may benefit from a Physical Medicine and Rehab consult. PT Equipment Recommendations Equipment Needed: Yes (If returning to prior living arrangements.) Mobility Devices: Wheelchair;Walker Walker: Rolling Wheelchair: Standard Other: pt currently tolerating short ambulation distances d/t desating Patient Diagnosis(es): The primary encounter diagnosis was Shortness of breath. Diagnoses of Elevated d-dimer, DENIZ (acute kidney injury) (HCC), Acute hypoxic respiratory failure (HCC), Acute respiratory failure, unspecified whether with hypoxia or hypercapnia (HCC), and Aortic atherosclerosis (HCC) were also pertinent to this visit. Past Medical History: has a past medical history of Bladder cancer (HCC), Diabetes mellitus (HCC), History of renal transplant, Hypertension, and Immunosuppression (HCC). Past Surgical History: has a past surgical history that includes Kidney transplant; Cardiac catheterization (11/10/2023); and vascular surgery (Right, 11/10/2023). Assessment Body Structures, Functions, Activity Limitations Requiring Skilled Therapeutic Intervention: Decreased functional mobility ;Decreased endurance;Decreased balance;Decreased strength Assessment: Pt with mobility deficits requiring CGA to ambulate 20 feet with a RW and sit<>stand transfers CGA. Pt with significant endurance deficits this date with SpO2 dropping from 96% to 86% requiring 2 mins to recover >90% with deep, controlled breathing techniques on 6L hi flow. Pt is motivated to improve and would benefit from additional PT upon discharge to maximize safety and independence with mobility. Pt reports that she is typically able to ambulate and complete all functional mobility independently with no AD with some rest breaks. Pt is currently unsafe to return to prior living arrangements upon discharge due to inability to negotiate home environment. Therapy Prognosis: Good Activity Tolerance Activity Tolerance: Patient limited by endurance Activity Tolerance Comments: pt desats with ambulation to 86% from 96% requiring 2 mins to recover >90%. Plan Physical Therapy Plan General Plan: (5-6x/week) Current Treatment Recommendations: Strengthening, ROM, Balance training, Functional mobility training, Transfer training, Gait training, Safety education & training, Home exercise program, Therapeutic activities, Patient/Caregiver education & training, Equipment evaluation, education, & procurement, Endurance training Safety Devices Type of Devices: Left in chair, Call light within reach, Gait belt, Nurse notified, Heels elevated for pressure relief Restraints Restraints Initially in Place: No Restrictions Restrictions/Precautions Required Braces or Orthoses?: No Position Activity Restriction Other position/activity restrictions: up with assist, s/p: mechanical thrombectomy on 11/09. Subjective General Patient assessed for rehabilitation services?: Yes Response To Previous Treatment: Patient with no complaints from previous session. Family / Caregiver Present: Yes (spouse) Follows Commands: Within Functional Limits General Comment Comments: Pt retired to recliner. Call light. RN notified of progress. Subjective Subjective: RN and pt agreeable to PT. Pt alert in recliner upon arrival. Pt having no c/o pain. Pt pleasant and cooperative. Vision/Hearing Vision Vision: Impaired Vision Exceptions: Wears glasses at all times Cognition Cognition Overall Cognitive Status: WFL Objective Bed mobility Supine to Sit: Unable to assess Sit to Supine: Unable to assess Bed Mobility Comments: Pt in recliner upon entering and exiting. Transfers Sit to Stand: Contact guard assistance Stand to Sit: Contact guard assistance Comment: Assessed with RW from recliner. Verbal cues for UE placement with good understanding. Pt maintained static standing at RW SBA. Ambulation Surface: Level tile Device: Rolling Walker Other Apparatus: O2 (6L hi flow) Assistance: Contact guard assistance Quality of Gait: good pace and control Gait Deviations: Slow Lynn Distance: 20 ft Comments: Pt desated from 96% to 86% after trial and recovered to >90% in 2 mins; RN notified. Pt focused on breathing techniques t/o trial. More Ambulation?: No (deferred d/t desating) Stairs/Curb Stairs?: No Balance Posture: Fair Sitting - Static: Good Sitting - Dynamic: Good Standing - Static: Fair;+ Standing - Dynamic: Fair Comments: Assessed standing at RW and sitting at edge of recliner Exercise Treatment: Supine Exercises: Ankle Pumps, Heel Slides, Hip ABD/ADD, Quad Sets Reps: x 10 - 15 reps focusing on breathing techniques t/o completing with increased time d/t freq rest periods to recover SpO2 OutComes Score AM-PAC - Mobility [facility] Basic Mobility - Inpatient How much help is needed turning from your back to your side while in a flat bed without using bedrails?: None How much help is needed moving from lying on your back to sitting on the side of a flat bed without using bedrails?: A Little How much help is needed moving to and from a bed to a chair?: A Little How much help is needed standing up from a chair using your arms?: None How much help is needed walking in hospital room?: A Little How much help is needed climbing 3-5 steps with a railing?: Total [facility] Inpatient Mobility Raw Score : 18 [facility] Inpatient T-Scale Score : 43.63 Mobility Inpatient CMS 0-100% Score: 46.58 Mobility Inpatient CMS G-Code Modifier : CK Goals Short Term Goals Time Frame for Short Term Goals: 14 visits Short Term Goal 1: Pt will perform sit<>stand transfer with supervision. Short Term Goal 2: Pt will ambulate 100 feet with least restrictive AD and supervision. Short Term Goal 3: Pt will demonstrate good- dynamic standing balance to decrease fall risk. Short Term Goal 4: Pt will tolerate a 35 minute therapy session to promote increased endurance. Education Patient Education Education Given To: Patient Education Provided: Role of Therapy;Transfer Training;Fall Prevention Strategies;Equipment;Energy Conservation Education Provided Comments: verbal cues for breathing techniques t/o Education Method: Verbal Barriers to Learning: None Education Outcome: Demonstrated understanding;Verbalized understanding Therapy Time Individual Concurrent Group Co-treatment Time In 1007 Time Out 1036 Minutes 29 Timed Code Treatment Minutes: 29 Minutes TAYLOR CARNEY PTA Images from the original note were not included. Min [employer] Technician Consult Note Today's Date: 11/12/2023 Patient Name: Ja Tavera Date of admission: 11/08/2023 7:47 PM Patient's age: 63 y.o., 1960 Admission Dx: Acute hypoxic respiratory failure (HCC) [J96.01] Reason for Consult: Cardiac evaluation Requesting Physician: William Mcknight MD REASON FOR CONSULT: Elevated Troponin Subjective: Seen and examined at bedside. Patient reports much improvement in her shortness of breath. Vitals and labs reviewed. Past Medical History: has a past medical history of Bladder cancer (HCC), Diabetes mellitus (HCC), History of renal transplant, Hypertension, and Immunosuppression (HCC). Past Surgical History: has a past surgical history that includes Kidney transplant; Cardiac catheterization (11/10/2023); and vascular surgery (Right, 11/10/2023). Home Medications: Prior to Admission medications Medication Sig Start Date End Date Taking? Authorizing Provider linagliptin (TRADJENTA) 5 MG tablet Take 1 tablet by mouth daily Yes Pool Nuñez MD Insulin Glargine, 2 Unit Dial, (TOUJEO MAX SOLOSTAR) 300 UNIT/ML SOPN Inject 55 Units into the skin daily Yes Pool Nuñez MD Injection Device for Insulin (INPEN 128-[id number]-[id number]-[id number]) KURT 10 Units by Does not apply route Daily with supper Yes Pool Nñuez MD tacrolimus (PROGRAF) 5 MG capsule Take 1 capsule by mouth 2 times daily Yes Pool Nuñez MD Everolimus 0.75 MG TABS Take 0.75 mg by mouth 2 times daily Yes Pool Nuñez MD metoprolol tartrate (LOPRESSOR) 25 MG tablet Take 1 tablet by mouth 2 times daily Yes Pool Nuñez MD predniSONE (DELTASONE) 10 MG tablet Take 1 tablet by mouth daily Yes Pool Nuñez MD levothyroxine (SYNTHROID) 150 MCG tablet Take 1 tablet by mouth Daily Yes Pool Nuñez MD atorvastatin (LIPITOR) 40 MG tablet Take 1 tablet by mouth nightly PM Yes Pool Nuñez MD febuxostat (ULORIC) 40 MG TABS tablet Take 1 tablet by mouth daily am Yes Pool Nuñez MD famotidine (PEPCID) 20 MG tablet Take 1 tablet by mouth 2 times daily am Yes Pool Nuñez MD Multiple Vitamins-Minerals (THERAPEUTIC MULTIVITAMIN-MINERALS) tablet Take 1 tablet by mouth daily Yes Pool Nuñez MD Henderson-3 Fatty Acids (OMEGA-3 FISH OIL) 1000 MG CAPS Take 2,000 mg by mouth in the morning and 2,000 mg in the evening. Yes Pool Nuñez MD loratadine (CLARITIN) 10 MG capsule Take 1 capsule by mouth daily Yes Pool Nuñez MD magnesium oxide (MAG-OX) 400 (240 Mg) MG tablet Take 1 tablet by mouth nightly PM Yes Pool Nuñez MD bimatoprost (LUMIGAN) 0.01 % SOLN ophthalmic drops Place 1 drop into both eyes nightly PM Yes Pool Nuñez MD cycloSPORINE (RESTASIS) 0.05 % ophthalmic emulsion 1 drop 2 times daily Yes Pool Nuñez MD polyethyl glycol-propyl glycol 0.4-0.3 % (SYSTANE) 0.4-0.3 % ophthalmic solution 1 drop as needed for Dry Eyes Yes Pool Nuñez MD sodium chloride flush, 5-40 mL, IntraVENous, 2 times per day Everolimus, 0.75 mg, Oral, BID predniSONE, 10 mg, Oral, Daily tacrolimus, 0.5 mg, Oral, BID cefTRIAXone (ROCEPHIN) IV, 2,000 mg, IntraVENous, Q24H levothyroxine, 125 mcg, Oral, Daily sodium chloride flush, 5-40 mL, IntraVENous, 2 times per day insulin lispro, 0-8 Units, SubCUTAneous, TID WC insulin lispro, 0-4 Units, SubCUTAneous, Nightly atorvastatin, 40 mg, Oral, Nightly metoprolol tartrate, 25 mg, Oral, BID Allergies: Aspirin, Ibuprofen, Plavix [clopidogrel], and Amlodipine Social History: reports that she has never smoked. She has never used smokeless tobacco. She reports that she does not use drugs. Family History: family history is not on file. No h/o sudden cardiac . PHYSICAL EXAM: BP (!) 134/92 Pulse 73 Temp 98.4 F (36.9 C) (Oral) Resp 20 Ht 1.676 m (5' 5.98 ) Wt 76.4 kg (168 lb 6.9 oz) SpO2 96% BMI 27.20 kg/m Constitutional and General Appearance: alert, cooperative, no distress and appears stated age HEENT: PERRL, no cervical lymphadenopathy. No masses palpable. Normal oral mucosa Respiratory: On High Flow. Cardiovascular: The apical impulse is not displaced Heart tones are crisp and normal. regular S1 and S2. Jugular venous pulsation Normal Peripheral pulses are symmetrical and full Abdomen: No masses or tenderness Bowel sounds present Extremities: No Cyanosis or Clubbing Lower extremity edema: No Skin: Warm and dry Neurological: Alert and oriented. Moves all extremities well No abnormalities of mood, affect, memory, mentation, or behavior are noted Labs: CBC: Recent Labs 11/11/23 0430 11/12/23 0549 WBC 11.2 9.6 HGB 12.1 11.0* HCT 39.1 36.3 PLT 91* 89* BMP: Recent Labs 11/10/23 0322 11/11/23 0430 NA 139 138 K 3.7 4.3 CO2 19* 20 BUN 28* 30* CREATININE 3.5* 3.4* LABGLOM 14* 15* GLUCOSE 64* 257* BNP: No results for input(s): BNP in the last 72 hours. PT/INR: Recent Labs 11/09/23 1009 PROTIME 14.2 INR 1.1 APTT: Recent Labs 11/09/23 1009 APTT 110.6* CARDIAC ENZYMES:No results for input(s): CKTOTAL , CKMB , CKMBINDEX , TROPONINI in the last 72 hours. FASTING LIPID PANEL:No results found for: HDL , LDLDIRECT , TRIG LIVER PROFILE: No results for input(s): AST , ALT , LABALBU in the last 72 hours. Troponins: Invalid input(s): TROPONIN Other Current Problems Patient Active Problem List Diagnosis Acute hypoxic respiratory failure (HCC) Immunosuppression (HCC) Hypertension History of renal transplant Diabetes mellitus (HCC) Bladder cancer (HCC) DENIZ (acute kidney injury) (HCC) NSTEMI (non-ST elevated myocardial infarction) (HCC) Elevated d-dimer Leukocytosis Shortness of breath Pneumonia of both lungs due to infectious organism Biventricular congestive heart failure (HCC) Aortic atherosclerosis (HCC) Hypoglycemia Pericardial effusion Severe pulmonary hypertension (HCC) Cor pulmonale (HCC) Metabolic acidosis Arterial hypotension Pulmonary embolus (HCC) DIAGNOSTICS: EKG: Date: 11/12/23 Reading: No acute ischemia LAST ECHO: Date:11/09/2023. Findings Summary: Left Ventricle: Mildly reduced left ventricular systolic function with a visually estimated EF of 45 - 50%. Left ventricle size is normal. Severely increased wall thickness. Unable to perform left heart strain due to technically difficult apical images. Mild global hypokinesis present. Grade I diastolic dysfunction with normal LAP. Right Ventricle: Severely reduced systolic function. TAPSE is abnormal. TAPSE is 1.1 cm. Aortic Valve: Trileaflet valve. Thickened cusps. Tricuspid Valve: Moderate regurgitation. Moderately elevated RVSP, consistent with moderate pulmonary hypertension. The estimated RVSP is 59 mmHg. Right Atrium: Right atrium is dilated. Pericardium: Trivial circumferential pericardial effusion present. Image quality is technically difficult. IMPRESSION: Elevated troponin likely type II: Peak troponin 197 Type IV pulmonary hypertension, PASP: 70, CTEPH s/p mechanical thrombectomy 11/10/2023 Cor pulmonale; acute versus acute on chronic Acute hypoxic respiratory failure, improved Suspected pulmonary embolism (elevated D-dimer, recent VQ scan was negative) s/p thrombectomy Right peroneal vein DVT Positive bubble study with agitated saline, suggestive intra-atrial stenting Pneumonia, ID on board Mild pericardial effusion Recent hospitalization at [facility] for pneumonia Essential hypertension Diabetes mellitus Obesity Suspected sleep apnea Ho Renal Transplant 2006 on Immunosuppression, nephro on board Hypothyroidism DENIZ on CKD Recommendations: Troponin elevation is likely type II from hypoxia and right heart strain. No active signs and symptoms of ACS. Patient has developed pulmonary hypertension from possible chronic thromboembolism. Now status post thrombectomy her oxygen requirement has decreased but as per operative note of the PA systolic pressure remains at 70. ECHO reviewed. EF 45-50%. Mild global hypokinesis present. Grade I diastolic dysfunction. Moderate TR. Consistent with moderate pulmonary hypertension. Trivial circumferential pericardial effusion HR stable. Continue BB. Patient cannot be on aspirin and Plavix because of her allergies and reported reaction with her immunosuppressive medication. Patient will need further cardiac workup as an outpatient Continue statin Patient is on heparin infusion for positive DVT studies, primary can switch to Eliquis on DC Rest of the management per primary team Replace electrolytes to keep K>4 and Mag>2. Will follow from the distance, please call for any acute questions Jesica Martinez MD [facility]; [place], [place] 11/12/2023, 8:57 AM Attending Pavilion Cutter Addendum: I have reviewed and performed the history, physical, subjective, objective, assessment, and plan with the student/resident/fellow/DIRECTOR TECHNICAL and agree with the note. I performed the history and physical personally. I have done the MDM. I have made changes to the note above as needed. S/p perc thrombectomy Feels much better On AC Should see us as outpatient We can arrange for stress test once more recovered from PE Will follow from distance Please call with any questions / concerns Discussed with patient in detail. All questions answered. Agrees with plan as outlined above. Thank you for allowing me to participate in the care of this patient, please do not hesitate to call if you have any questions. Zechariah Beatty DO, FACC, RPRENEA, LAILA PITTMAN [place] [employer] Technician [facility] Progress Note Patient : Ja Tavera; 63 y.o. Location: [facility]/1025-01 Attending: William Mcknight* Admit Date: 11/08/2023 Hospital Day: 4 Subjective: Patient seen and examined at bedside. According to her she is making good urine. Denies any shortness of breath or orthopnea. No nausea vomiting or diarrhea. Hemodynamically stable. Labs reviewed. Sodium 138, potassium 4.0, chloride 106, bicarb 17, BUN 27, creatinine 3.2, magnesium 2.0, calcium 7.9, glucose 232, WBCs 9.6, hemoglobin 11.0, platelet count 89, tacrolimus level pending. Urine output documented at 250 cc over 24 hours +3 unmeasured occurrences. History reviewed Known history of ESRD from recurrent UTIs as a child and right nephrectomy as a child, status post 2 haplotype matched living donor kidney transplant at [facility] in 2006, baseline creatinine 2.5-2.7. Is being maintained on prednisone tacrolimus and everolimus. Prior to that was on MMF however she developed bladder cancer in June 2020 and was switched over to everolimus. She been following up with [facility] urology for bladder cancer and has been cancer free also continues to receive local chemotherapy. Came to [facility] hospital in September with shortness of breath. Thought to have a lingular pneumonia. VQ scan was negative at that time. Placed on antibiotics and discharged home. Dyspnea did not improve came back to the hospital at this time to [place]. Echocardiogram showed right ventricular strain. Found to have a PE. Underwent mechanical thrombectomy. Creatinine is gone up slightly to 3.4 nephrology consulted for acute allograft dysfunction Outpatient Medications: Medications Prior to Admission: linagliptin (TRADJENTA) 5 MG tablet, Take 1 tablet by mouth daily Insulin Glargine, 2 Unit Dial, (TOUJEO MAX SOLOSTAR) 300 UNIT/ML SOPN, Inject 55 Units into the skin daily Injection Device for Insulin (INPEN [id number]) KURT, 10 Units by Does not apply route Daily with supper tacrolimus (PROGRAF) 5 MG capsule, Take 1 capsule by mouth 2 times daily Everolimus 0.75 MG TABS, Take 0.75 mg by mouth 2 times daily metoprolol tartrate (LOPRESSOR) 25 MG tablet, Take 1 tablet by mouth 2 times daily predniSONE (DELTASONE) 10 MG tablet, Take 1 tablet by mouth daily levothyroxine (SYNTHROID) 150 MCG tablet, Take 1 tablet by mouth Daily atorvastatin (LIPITOR) 40 MG tablet, Take 1 tablet by mouth nightly PM febuxostat (ULORIC) 40 MG TABS tablet, Take 1 tablet by mouth daily am famotidine (PEPCID) 20 MG tablet, Take 1 tablet by mouth 2 times daily am Multiple Vitamins-Minerals (THERAPEUTIC MULTIVITAMIN-MINERALS) tablet, Take 1 tablet by mouth daily Henderson-3 Fatty Acids (OMEGA-3 FISH OIL) 1000 MG CAPS, Take 2,000 mg by mouth in the morning and 2,000 mg in the evening. loratadine (CLARITIN) 10 MG capsule, Take 1 capsule by mouth daily magnesium oxide (MAG-OX) 400 (240 Mg) MG tablet, Take 1 tablet by mouth nightly PM bimatoprost (LUMIGAN) 0.01 % SOLN ophthalmic drops, Place 1 drop into both eyes nightly PM cycloSPORINE (RESTASIS) 0.05 % ophthalmic emulsion, 1 drop 2 times daily polyethyl glycol-propyl glycol 0.4-0.3 % (SYSTANE) 0.4-0.3 % ophthalmic solution, 1 drop as needed for Dry Eyes Current Medications: Scheduled Meds: sodium chloride flush 5-40 mL IntraVENous 2 times per day Everolimus 0.75 mg Oral BID predniSONE 10 mg Oral Daily tacrolimus 0.5 mg Oral BID cefTRIAXone (ROCEPHIN) IV 2,000 mg IntraVENous Q24H levothyroxine 125 mcg Oral Daily sodium chloride flush 5-40 mL IntraVENous 2 times per day insulin lispro 0-8 Units SubCUTAneous TID WC insulin lispro 0-4 Units SubCUTAneous Nightly atorvastatin 40 mg Oral Nightly metoprolol tartrate 25 mg Oral BID Continuous Infusions: sodium chloride heparin (PORCINE) Infusion 11 Units/kg/hr (11/12/23 0620) sodium bicarbonate 75 mEq in dextrose 5 % and 0.45 % NaCl 1,000 mL infusion 75 mL/hr at 11/12/23 0620 sodium chloride dextrose PRN Meds: perflutren lipid microspheres, naloxone 0.4 mg in 10 mL sodium chloride syringe, sodium chloride flush, sodium chloride, heparin (porcine), heparin (porcine), sodium chloride flush, sodium chloride, ondansetron OR ondansetron, polyethylene glycol, acetaminophen OR acetaminophen, potassium chloride OR potassium alternative oral replacement OR potassium chloride, magnesium sulfate, glucose, dextrose bolus OR dextrose bolus, glucagon (rDNA), dextrose Input/Output: I/O last 3 completed shifts: In: 4778.9 [I.V.:4778.9] Out: 750 [Urine:750]. Patient Vitals for the past 96 hrs (Last 3 readings): Weight 11/12/23 0552 76.4 kg (168 lb 6.9 oz) 11/10/23 0533 76.8 kg (169 lb 5 oz) 11/08/23 2137 76.8 kg (169 lb 5 oz) Vital Signs: Temperature: Temp: 98.4 F (36.9 C) TMax: Temp (24hrs), Av.4 F (36.9 C), Min:98.1 F (36.7 C), Max:98.6 F (37 C) Respirations: Respirations: 20 Pulse: Pulse: 73 BP: BP: (!) 134/92 BP Range: Systolic (24hrs), Av , Min:93 , Max:135 Diastolic (24hrs), Av, Min:60, Max:92 Physical Examination: General: AAO x 3, speaking in full sentences, no accessory muscle use. HEENT: Atraumatic, normocephalic, no throat congestion, moist mucosa. Eyes: Pupils equal, round and reactive to light, EOMI. Neck: No JVD, no thyromegaly, no lymphadenopathy. Chest: Bilateral vesicular breath sounds, no rales or wheezes. Cardiac: S1 S2 RR, no murmurs, gallops or rubs, JVP not raised. Abdomen: Soft, non-tender, no masses or organomegaly, BS audible. : No suprapubic or flank tenderness. Neuro: AAO x 3, No FND. SKIN: No rashes, good skin turgor. Extremities: No edema, palpable peripheral pulses, no calf tenderness. Labs: Recent Labs 11/10/23 0322 11/11/23 0430 11/12/23 0549 WBC 9.8 11.2 9.6 RBC 5.13* 4.38 3.91* HGB 14.2 12.1 11.0* HCT 44.9 39.1 36.3 MCV 87.5 89.3 92.8 MCH 27.7 27.6 28.1 MCHC 31.6 30.9 30.3 RDW 14.1 14.1 13.8 PLT See Reflexed IPF Result 91* 89* MPV -- 11.5 11.7 BMP: Recent Labs 11/09/23 1009 11/10/2332111/11/23 0430 NA 139 139 138 K 4.2 3.7 4.3 CL 109* 109* 108* CO2 16* 19* 20 BUN 32* 28* 30* CREATININE 3.1* 3.5* 3.4* GLUCOSE 89 64* 257* CALCIUM 8.7 8.3* 7.6* Magnesium: Recent Labs 11/10/2332111/11/23 0430 11/12/23 0549 MG 1.9 2.0 2.0 SPEP: Lab Results Component Value Date/Time ALBCAL 3.6 11/09/2023 12:38 PM ALBPCT 54 11/09/2023 12:38 PM A1PCT 7 11/09/2023 12:38 PM A2PCT 13 11/09/2023 12:38 PM BETAPCT 12 11/09/2023 12:38 PM GAMGLOB 0.9 11/09/2023 12:38 PM GGPCT 14 11/09/2023 12:38 PM PATH ELECTRONICALLY SIGNED. ANNE LIN M.D. 11/09/2023 12:38 PM UPEP: Lab Results Component Value Date/Time LABPE 11/09/2023 12:11 PM Elevated protein concentration. Most serum proteins are detected in this urine. Usually observed with markedly increased nonselective glomerular permaeabilty (severe glomerular disease) and/or contamination of urine with blood. A decrease in tubular function cannot be ruled out. Urinalysis/Chemistries: Radiology: CXR: Assessment: 1. Acute allograft dysfunction likely from ATN from contrast exposure and depleted circulating volume further aggravated by tacrolimus use. Baseline 2.5-2.7 peaked at 3.4, now down to 3.2 nonoliguric expected to improve 2. 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 Ta 3. Status post living donor donor kidney transplant in 2006 at [facility] being maintained on prednisone tacrolimus and everolimus 4. Acute PE status post mechanical thrombectomy 5. Metabolic acidosis. Plan: 1. Change fluids to sterile water with 150 of bicarb at 75 mL an hour. 2. Continue tacrolimus and everolimus and prednisone at current dose 3. Monitor urine output 4. Avoid macrolides, images oral antifungals, nondihydropyridine calcium channel blockers 5. Tacrolimus level pending. 6. Will follow Nutrition Please ensure that patient is on a renal diet/TF. Avoid nephrotoxic drugs/contrast exposure. We will continue to follow along with you. Brenda Merlos, MEDICAL TRANSPORT SPECIALIST-OFFICE ASSOCIATE [facility] Patient seen with nurse practitioner Doing well overall. Shortness of breath better. Urine output good although not being measured accurately. Continues on tacrolimus and everolimus and prednisone. Creatinine improved slightly. Metabolic acidosis better although blood sugars have gone up. Continues on Rocephin for possible pneumonia. Clinical exam unremarkable Impression 1. Acute allograft dysfunction likely ATN from contrast exposure and depleted circulating volume further aggravated by tacrolimus use. Baseline 2.5-2.7 peaked at 3.4 now down to 3.2 2. 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 Ta 3. Status post 2 haplotype match living donor transplant from patient's brother in 2006 at [facility] currently on tacrolimus everolimus and prednisone 4. BK virus nephropathy 5. Acute PE status post mechanical thrombectomy 6. Metabolic acidosis Plan 1. Change fluids to sterile water with bicarb at 75 an hour 2. No change in tacrolimus and everolimus and prednisone dose 3. Await tacrolimus level 4. Avoid macrolides, imidazole antifungals, nondihydropyridine calcium channel blockers 5. Will follow Attending Physician Statement I have discussed the care of Ja Tavera, including pertinent history and exam findings with the resident/fellow. I have reviewed the [place] elements of all parts of the encounter with the resident/fellow. I have seen and examined the patient with the resident/fellow. I agree with the assessment and plan and status of the problem list as documented. . Images from the original note were not included. [facility] - Progress Note Today's Date and Time: 11/12/2023, 8:22 AM Impression : Pneumonia Bladder cancer, IV chemotherapy perform monthly Renal transplant 2006, on tacrolimus, everolimus and prednisone Type 2 diabetes mellitus, insulin-dependent Hypertension Pulmonary embolism S/P thrombectomy of pulmonary artery 11/10/2023 Recommendations: Ceftriaxone 2 gm IV q 24 hr. Stop date 11-15-23 Medical Decision Making/Summary/Discussion:11/12/19 Elements of Medical Decision Making: Note: I have independently performed the steps listed below as part of the medical decision making and evaluation. Examined and discussed with patient. Possible pneumonia CHF with very high ProBNP Bladder cancer, IV chemotherapy, receives monthly Renal transplant 2006, on tacrolimus, everolimus and prednisone Type 2 diabetes mellitus, insulin-dependent Essential Hypertension Pulmonary embolus S/P thrombectomy of pulmonary artery 11/10/2023 Labs, medications, radiologic studies were reviewed with personal review of films Radiologic studies Lab work ProBNP: 74170 Cultures Blood: No growth Large amounts of data were reviewed Recent admissions at [facility] and [place] Evaluated for SOB Found to have bronchiolitis by CT There was also concern for pulmonary consolidation Treated with ceftriaxone and azythromycin Subsequently seen at [place] with worsening SOB Transferred to [facility] Cardiac cath scheduled on 11-10-23 Discussed with nursing Staff, capacity planner Dr Mcknight's service Infection Control and Prevention measures reviewed [place] precaution All prior entries were reviewed Administer medications as ordered Zosyn D/C Linezolid D/C Ceftriaxone 2 gm IV q 24 hr Prognosis: Guarded Discharge planning reviewed Follow up as outpatient. Eduardo Muhammad MD. 11/10/2023 Infection Control Recommendations [place] Precautions Antimicrobial Stewardship Recommendations Simplification of therapy Targeted therapy PK dosing Coordination of Outpatient Care: Estimated Length of IV antimicrobials:TBD Patient will need Midline Catheter Insertion: TBD Patient will need PICC line Insertion:TBD Patient will need: Home IV , Infusion Center, SNF, LTAC: TBD Patient will need outpatient wound care: No Chief complaint/reason for consultation: Pneumonia, unclear etiology History of Present Illness: Ja Tavera is a 63 y.o.-year-old female who was initially admitted on 11/08/2023. Patient seen at the request of . INITIAL HISTORY: Patient was originally seen at [facility] for progressive worsening shortness of breath. Her PCP encouraged her to go to the ED. Patient was desatting on room air 88 to 91% and was placed on 2 L of oxygen. A chest x-ray showed consolidation. CT chest showed subtle groundglass changes within the lingula this was likely infectious bronchiolitis. Patient had an elevated D-dimer at this time. Patient was started on heparin, IV Rocephin and IV azithromycin. Patient had a VQ scan which came back negative for PE and the heparin was discontinued on 10/19. Patient was discharged home on cefpodoxime mean for 3 days. Patient was worked up for cryptococcus and Q fever [place] and [place]ressed. However this workup came back negative for atypical infection. Upon discharge she was sent home on 3 L of continuous oxygen. Patient was brought back to the ED for continual shortness of breath. Her oxygen was increased from 3 L to 5 L. EKG was performed and showed right ventricular hypertrophy consistent with pulmonary disease. Patient was transferred to [facility] for further management. Patient is currently on IV linezolid and IV Zosyn. CURRENT EVALUATION 11/12/2023 BP (!) 134/92 Pulse 73 Temp 98.4 F (36.9 C) (Oral) Resp 20 Ht 1.676 m (5' 5.98 ) Wt 76.4 kg (168 lb 6.9 oz) SpO2 96% BMI 27.20 kg/m Patient evaluated and examined in the ICU. Afebrile VS stable Patient feels better No complaints Breathing much easier No new issues reported Medications reviewed: On ceftriaxone Patient on high flow 02 Flow rate 35-->6-->4 -->6 L/min Underwent pulmonary artery thrombectomy 11-10-23 Labs, X rays reviewed: 11/12/2023 BUN: 35-->28-->30-->27 Cr: 2.7-->3.5-->3.4-->3.2 WBC: 10.2-->9.8-->11.2-->9.6 Hb: 14.9-->14.2-->12.1-->11 Plat: 98-->91-->89 CRP: proBNP: 21,057 Lactic acid: 2.9 Troponin: 197, 192 Medications reviewed: Ceftriaxone until 11-15-23 Influenza A & B: negative Covid: negative Legionella: negative Strep pneumoniae: negative Cultures: Urine: Blood: 11/08/2023 no growth x 2 Sputum : Wound: MRSA Nares: 11/09/2023: negative Imaging: Chest CT: 11/08/2023 Pericardial effusion, COPD Atrophic changes in the pancreas No confluent pneumonia, conflict pulmonary atelectasis or pleural effusion 11-08-23: I have personally reviewed the past medical history, past surgical history, medications, social history, and family history, and I have updated the database accordingly. Past Medical History: Past Medical History: Diagnosis Date Bladder cancer (HCC) Diabetes mellitus (HCC) History of renal transplant Hypertension Immunosuppression (HCC) Past Surgical History: Past Surgical History: Procedure Laterality Date CARDIAC CATHETERIZATION 11/10/2023 KIDNEY TRANSPLANT VASCULAR SURGERY Right 11/10/2023 / THROMBECTOMY MECHANICAL PERCUTANEOUS OF THE PULMONARY ARTERY performed by Keron Ghosh MD at [facility] Medications: sodium chloride flush 5-40 mL IntraVENous 2 times per day Everolimus 0.75 mg Oral BID predniSONE 10 mg Oral Daily tacrolimus 0.5 mg Oral BID cefTRIAXone (ROCEPHIN) IV 2,000 mg IntraVENous Q24H levothyroxine 125 mcg Oral Daily sodium chloride flush 5-40 mL IntraVENous 2 times per day insulin lispro 0-8 Units SubCUTAneous TID WC insulin lispro 0-4 Units SubCUTAneous Nightly atorvastatin 40 mg Oral Nightly metoprolol tartrate 25 mg Oral BID Social History: Social History Socioeconomic History Marital status: Spouse name: Not on file Number of children: Not on file Years of education: Not on file Highest education level: Not on file Occupational History Not on file Tobacco Use Smoking status: Never Smokeless tobacco: Never Substance and Sexual Activity Alcohol use: Not on file Comment: occasional Drug use: Never Sexual activity: Not on file Other Topics Concern Not on file Social History Narrative Not on file Social Determinants of Health Financial Resource Strain: Low Risk (10/19/2023) Received from [facility] Overall Financial Resource Strain (CARDIA) Difficulty of Paying Living Expenses: Not hard at all Food Insecurity: No Food Insecurity (11/09/2023) Hunger Vital Sign Worried About Running Out of Food in the Last Year: Never true Ran Out of Food in the Last Year: Never true Transportation Needs: Patient Declined (11/09/2023) PRAPARE - Transportation Lack of Transportation (Medical): Patient declined Lack of Transportation (Non-Medical): Patient declined Physical Activity: Not on file Stress: No Stress Concern Present (10/19/2023) Received from [facility] [place] of Occupational Health - Occupational Stress Questionnaire Feeling of Stress : Only a little Social Connections: Moderately Isolated (10/19/2023) Received from [facility] Social Connection and Isolation Panel [NHANES] Frequency of Communication with Friends and Family: More than three times a week Frequency of Social Gatherings with Friends and Family: More than three times a week Attends Adventism Services: Never Active Member of Clubs or Organizations: No Attends Club or Organization Meetings: Never Marital Status: Intimate Partner Violence: Not At Risk (10/19/2023) Received from [facility] Humiliation, Afraid, Rape, and Kick questionnaire Fear of Current or Ex-Partner: No Emotionally Abused: No Physically Abused: No Sexually Abused: No Housing Stability: Patient Declined (11/09/2023) Housing Stability Vital Sign Unable to Pay for Housing in the Last Year: Patient declined Number of Times Moved in the Last Year: 1 Homeless in the Last Year: Patient declined Family History: History reviewed. No pertinent family history. Allergies: Aspirin, Ibuprofen, Plavix [clopidogrel], and Amlodipine Review of Systems: Constitutional: No fevers or chills. No systemic complaints Head: No headaches Eyes: No double vision or blurry vision. No conjunctival inflammation. ENT: No sore throat or runny nose.. No hearing loss, tinnitus or vertigo. Cardiovascular: No chest pain or palpitations.No shortness of breath. No [place] Lung: No shortness of breath or cough. No sputum production Abdomen: No nausea, vomiting, diarrhea, or abdominal pain.. No cramps. Genitourinary: No increased urinary frequency, or dysuria. No hematuria. No suprapubic or CVA pain Musculoskeletal: No muscle aches or pains. No joint effusions, swelling or deformities Hematologic: No bleeding or bruising. Neurologic: No headache, weakness, numbness, or tingling. Integument: No rash, no ulcers. Psychiatric: No depression. Endocrine: No polyuria, no polydipsia, no polyphagia. Physical Examination : Patient Vitals for the past 8 hrs: BP Temp Temp src Pulse SpO2 Weight 11/12/23 0700 (!) 134/92 -- -- 73 -- -- 11/12/23 0600 128/87 98.4 F (36.9 C) Oral 78 -- -- 11/12/23 0552 -- -- -- -- -- 76.4 kg (168 lb 6.9 oz) 11/12/23 0500 104/84 -- -- 82 -- -- 11/12/23 0400 112/74 98.6 F (37 C) Oral 69 96 % -- 11/12/23 0300 135/86 -- -- 69 99 % -- 11/12/23 0200 99/60 98.4 F (36.9 C) Oral 72 -- -- 11/12/23 0100 101/73 -- -- 73 95 % -- General Appearance: Awake, alert, and in no apparent distress Head: Normocephalic, no trauma Eyes: Pupils equal, round, reactive to light and accommodation; extraocular movements intact; sclera anicteric; conjunctivae pink. No embolic phenomena. ENT: Oropharynx clear, without erythema, exudate, or thrush. No tenderness of sinuses. Mouth/throat: mucosa pink and moist. No lesions. Dentition in good repair. Neck:Supple, without lymphadenopathy. Thyroid normal, No bruits. Pulmonary/Chest: Clear to auscultation, without wheezes, rales, or rhonchi. No dullness to percussion. Cardiovascular: Regular rate and rhythm without murmurs, rubs, or gallops. Abdomen: Soft, non tender. Bowel sounds normal. No organomegaly All four Extremities: No cyanosis, clubbing, edema, or effusions. Neurologic: No gross sensory or motor deficits. Skin: Warm and dry with good turgor.No signs of peripheral arterial or venous insufficiency. No ulcerations. No open wounds. Medical Decision Making -Laboratory: I have independently reviewed/ordered the following labs: CBC with Differential: Recent Labs 11/11/23 0430 11/12/23 0549 WBC 11.2 9.6 HGB 12.1 11.0* HCT 39.1 36.3 PLT 91* 89* LYMPHOPCT 14* 16* MONOPCT 13* 12 EOSPCT 1 1 BMP: Recent Labs 11/10/23 0322 11/11/23 0430 11/12/23 0549 NA 139 138 -- K 3.7 4.3 -- CL 109* 108* -- CO2 19* 20 -- BUN 28* 30* -- CREATININE 3.5* 3.4* -- MG 1.9 2.0 2.0 Hepatic Function Panel: No results for input(s): LABALBU , BILIDIR , IBILI , BILITOT , ALKPHOS , ALT , AST in the last 72 hours. Invalid input(s): PROT No results for input(s): RPR in the last 72 hours. No results for input(s): HIV in the last 72 hours. No results for input(s): BC in the last 72 hours. Lab Results Component Value Date/Time RBC 3.91 11/12/2023 05:49 AM WBC 9.6 11/12/2023 05:49 AM Lab Results Component Value Date/Time CREATININE 3.4 11/11/2023 04:30 AM GLUCOSE 257 11/11/2023 04:30 AM Medical Decision Making-Imaging: CT CHEST WO CONTRAST Result Date: 11/09/2023 EXAMINATION: CT OF THE CHEST WITHOUT CONTRAST 11/08/2023 9:15 pm TECHNIQUE: CT of the chest was performed without the administration of intravenous contrast. Multiplanar reformatted images are provided for review. Automated exposure control, iterative reconstruction, and/or weight based adjustment of the mA/kV was utilized to reduce the radiation dose to as low as reasonably achievable. COMPARISON: None HISTORY: ORDERING SYSTEM PROVIDED HISTORY: hypoxia TECHNOLOGIST PROVIDED HISTORY: hypoxia Reason for Exam: hypoxia FINDINGS: Mediastinum: No evidence of hemorrhage or acute process in the mediastinum. No evidence of mediastinal mass or pathologic lymphadenopathy. Thoracic aorta appears to be of normal size. The diameter of the ascending thoracic aorta is 3.36 cm. Cardiac size appears to be within normal limits. There is pericardial effusion. Anterior to left heart the AP thickness of the pericardial effusion is 1.38 cm. At the posteroinferior aspect of left heart the maximal thickness of the pericardial effusion is 1.1 cm. No obvious coronary arterial calcifications demonstrated. Lungs/pleura: Minimal focal fibrotic changes can be identified at the posterolateral base of right pulmonary lower lobe and in the lateral aspect of lateral segment of right pulmonary lower lobe. In the inferior lingula of left lung there are minimal streaky fibrotic or atelectatic changes. At the lateral aspect of the apical segment of right pulmonary upper lobe there are minimal fibrotic changes noted. Rest of lung byrnes are clear. Lungs are mildly hyperinflated suggestive of COPD without any obvious bulla formation. No evidence of pleural effusion or pleural thickening, or pneumothorax or pneumomediastinum. Upper Abdomen: In the visualized upper and midportion of liver there is no focal abnormality or acute process. In visualized upper and midportion of gallbladder there is no definable abnormality. Fundus of gallbladder is not completely included. Spleen appears to be grossly normal. Moderate atrophic changes in the pancreas without acute process. Normal adrenal glands. Visualized upper portion of left kidney appears to be markedly atrophic. Right kidney is not visualized. No evidence of hiatal hernia. No pneumoperitoneum. Soft Tissues/Bones: No evidence of fracture or acute process or any other diagnostic finding in the thoracic spine. No definable fracture or focal abnormality in bilateral ribs or in rest of bony thorax. No acute process in the soft tissues of chest wall. 1. Pericardial effusion as described above. Maximal thickness of pericardial effusion is 1.38 cm. 2. COPD. 3. Minimal scattered fibrotic changes in the lungs as described above. No confluent pneumonia, confluent pulmonary atelectasis or pleural effusions. 4. Atrophic changes in the pancreas. 5. Markedly atrophic left kidney which is not completely visualized. Right kidney not visualized. Echo (TTE) complete (PRN contrast/bubble/strain/3D) Result Date: 11/09/2023 Left Ventricle: Preserved left ventricular systolic function. EF by visual approximation is 50%. Left ventricle size is normal. Severely increased wall thickness. Septal flattening in systole consistent with right ventricular pressure overload. Normal wall motion. Normal diastolic function. Right Ventricle: Right ventricle is severely dilated. Severely reduced systolic function. TAPSE is abnormal. TAPSE is 1.1 cm. Findings consistent with Summers's sign. Consider Pulm Embolism Rule Out if not done. Aortic Valve: Trileaflet valve. Thickened cusps. Mitral Valve: Trace regurgitation. Tricuspid Valve: Moderate regurgitation. Moderately elevated RVSP, consistent with moderate pulmonary hypertension. The estimated RVSP is 59 mmHg. Right Atrium: Right atrium is dilated. Pericardium: Trivial circumferential pericardial effusion present. IVC/SVC: IVC diameter is greater than 21 mm and decreases greater than 50% during inspiration; therefore the estimated right atrial pressure is intermediate (~8 mmHg). IVC is dilated. Image quality is technically difficult. Medical Decision Qhjshk-Ncpjwiey-Kwbor: Results Procedure Component Value Units Date/Time Infectious Disease Intervention [[id number]] Order Status: Sent Respiratory Panel, Molecular, with COVID-19 (Restricted: peds pts or suitable admitted adults) [[id number]] Collected: 11/09/23744 Order Status: Completed Specimen: Nasopharyngeal Swab Updated: 11/09/23907 Specimen Description .NASOPHARYNGEAL SWAB Adenovirus PCR Not Detected Coronavirus 229E PCR Not Detected Coronavirus HKU1 PCR Not Detected Coronavirus NL63 PCR Not Detected Coronavirus OC43 PCR Not Detected SARS-CoV-2, PCR Not Detected Human Metapneumovirus PCR Not Detected Rhino/Enterovirus PCR Not Detected Influenza A by PCR Not Detected Influenza B by PCR Not Detected Parainfluenza 1 PCR Not Detected Parainfluenza 2 PCR Not Detected Parainfluenza 3 PCR Not Detected Parainfluenza 4 PCR Not Detected Resp Syncytial Virus PCR Not Detected Bordetella parapertussis by PCR Not Detected B Pertussis by PCR Not Detected Chlamydia pneumoniae By PCR Not Detected Mycoplasma pneumo by PCR Not Detected Comment: Performed by multiplexed nucleic acid assay. MRSA DNA Probe, Nasal [[id number]] Collected: 11/09/23744 Order Status: Completed Specimen: Nasal Updated: 11/10/23848 Specimen Description .NASAL SWAB MRSA, DNA, Nasal NEGATIVE Comment: NEGATIVE: MRSA DNA not detected by nucleic acid amplification. Results should be used as an adjunct to nosocomial control efforts to identify patients needing enhanced precautions. The test is not intended to identify patients with staphylococcal infections. Results should not be used to guide or monitor treatment for MRSA infections. LEGIONELLA ANTIGEN, URINE [[id number]] Collected: 11/08/232314 Order Status: Completed Specimen: Urine Updated: 11/09/23 1027 Legionella Pneumophilia Ag, Urine NEGATIVE Comment: L. pneumophila serogroup 1 antigen not detected. A negative result does not exclude infection with Leginella pnemophila serogroup 1 nor does it rule out other microbial-caused respiratory infections of disease caused by other serogroups of Legionella pneumophila. Culture, Blood 1 [[id number]] Collected: 11/08/232204 Order Status: Completed Specimen: Blood Updated: 11/12/2337 Specimen Description .BLOOD Special Requests R ARM 1ML Culture NO GROWTH 3 DAYS Culture, Blood 2 [[id number]] Collected: 11/08/232199 Order Status: Completed Specimen: Blood Updated: 11/12/2331 Specimen Description .BLOOD Special Requests R HAND 6ML Culture NO GROWTH 3 DAYS Culture, Respiratory [[id number]] Order Status: No result Specimen: Sputum Expectorated Strep Pneumoniae Antigen [[id number]] Collected: 11/08/23 0805 Order Status: Completed Specimen: Urine-clean catch from Urine, clean catch Updated: 11/09/23 1027 Source .URINE Strep pneumo Ag NEGATIVE Comment: Strep pneumoniae antigen not detected Medical Decision Making-Other: Note: Thank you for allowing us to participate in the care of this patient. Please call with questions. Eduardo Mhuammad MD Pager: - Office: Renal Progress Note Patient : Ja Tavera; 63 y.o. Location: [facility]5/1025-01 Attending: William Mcknight* Admit Date: 11/08/2023 Hospital Day: 3 Subjective: Underwent pulmonary angiogram and mechanical thrombectomy for acute and subacute pulmonary embolization bilaterally. Postprocedure has been feeling better. Shortness of breath better. Urine output fair. IV fluids with bicarb continue. Oral intake poor. Hemodynamically stable. No fever or chills. No nausea vomiting or diarrhea. Labs today showed a sodium of 138 potassium 4.3 chloride 108 bicarb 20 BUN 30 creatinine 3.4 magnesium 2 glucose 257 calcium 7.6. Everolimus and tacrolimus continue. Also on prednisone. 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 Baseline creatinine 2.5-2.7. Is being maintained on prednisone tacrolimus and everolimus. Prior to that was on MMF however she developed bladder cancer in June 2020 and was switched over to everolimus. She been following up with [facility] urology for bladder cancer and has been cancer free also continues to receive local chemotherapy. Came to [facility] hospital in September with shortness of breath. Thought to have a lingular pneumonia. VQ scan was negative at that time. Placed on antibiotics and discharged home. Dyspnea did not improve came back to the hospital at this time to [facility]. Echocardiogram showed right ventricular strain. Found to have a PE. Underwent mechanical thrombectomy. Creatinine is gone up slightly to 3.4 nephrology consulted for acute allograft dysfunction Outpatient Medications: Medications Prior to Admission: linagliptin (TRADJENTA) 5 MG tablet, Take 1 tablet by mouth daily Insulin Glargine, 2 Unit Dial, (TOUJEO MAX SOLOSTAR) 300 UNIT/ML SOPN, Inject 55 Units into the skin daily Injection Device for Insulin ([id number] [id number]) KURT, 10 Units by Does not apply route Daily with supper tacrolimus (PROGRAF) 5 MG capsule, Take 1 capsule by mouth 2 times daily Everolimus 0.75 MG TABS, Take 0.75 mg by mouth 2 times daily metoprolol tartrate (LOPRESSOR) 25 MG tablet, Take 1 tablet by mouth 2 times daily predniSONE (DELTASONE) 10 MG tablet, Take 1 tablet by mouth daily levothyroxine (SYNTHROID) 150 MCG tablet, Take 1 tablet by mouth Daily atorvastatin (LIPITOR) 40 MG tablet, Take 1 tablet by mouth nightly PM febuxostat (ULORIC) 40 MG TABS tablet, Take 1 tablet by mouth daily am famotidine (PEPCID) 20 MG tablet, Take 1 tablet by mouth 2 times daily am Multiple Vitamins-Minerals (THERAPEUTIC MULTIVITAMIN-MINERALS) tablet, Take 1 tablet by mouth daily Henderson-3 Fatty Acids (OMEGA-3 FISH OIL) 1000 MG CAPS, Take 2,000 mg by mouth in the morning and 2,000 mg in the evening. loratadine (CLARITIN) 10 MG capsule, Take 1 capsule by mouth daily magnesium oxide (MAG-OX) 400 (240 Mg) MG tablet, Take 1 tablet by mouth nightly PM bimatoprost (LUMIGAN) 0.01 % SOLN ophthalmic drops, Place 1 drop into both eyes nightly PM cycloSPORINE (RESTASIS) 0.05 % ophthalmic emulsion, 1 drop 2 times daily polyethyl glycol-propyl glycol 0.4-0.3 % (SYSTANE) 0.4-0.3 % ophthalmic solution, 1 drop as needed for Dry Eyes Current Medications: Scheduled Meds: sodium chloride flush 5-40 mL IntraVENous 2 times per day Everolimus 0.75 mg Oral BID predniSONE 10 mg Oral Daily tacrolimus 0.5 mg Oral BID cefTRIAXone (ROCEPHIN) IV 2,000 mg IntraVENous Q24H levothyroxine 125 mcg Oral Daily sodium chloride flush 5-40 mL IntraVENous 2 times per day insulin lispro 0-8 Units SubCUTAneous TID WC insulin lispro 0-4 Units SubCUTAneous Nightly atorvastatin 40 mg Oral Nightly metoprolol tartrate 25 mg Oral BID Continuous Infusions: sodium chloride heparin (PORCINE) Infusion 11 Units/kg/hr (11/11/23 1304) sodium bicarbonate 75 mEq in dextrose 5 % and 0.45 % NaCl 1,000 mL infusion 75 mL/hr at 11/11/23 1446 sodium chloride dextrose PRN Meds: perflutren lipid microspheres, naloxone 0.4 mg in 10 mL sodium chloride syringe, sodium chloride flush, sodium chloride, ondansetron, heparin (porcine), heparin (porcine), sodium chloride flush, sodium chloride, ondansetron OR ondansetron, polyethylene glycol, acetaminophen OR acetaminophen, potassium chloride OR potassium alternative oral replacement OR potassium chloride, magnesium sulfate, glucose, dextrose bolus OR dextrose bolus, glucagon (rDNA), dextrose Input/Output: I/O last 3 completed shifts: In: 2998.2 [P.O.:300; I.V.:2698.2] Out: 1390 [Urine:1390]. Patient Vitals for the past 96 hrs (Last 3 readings): Weight 11/10/23 0533 76.8 kg (169 lb 5 oz) 11/08/23 2137 76.8 kg (169 lb 5 oz) Vital Signs: Temperature: Temp: 98.3 F (36.8 C) TMax: Temp (24hrs), Av.4 F (36.9 C), Min:98 F (36.7 C), Max:98.8 F (37.1 C) Respirations: Respirations: 22 Pulse: Pulse: 80 BP: BP: 104/66 BP Range: Systolic (24hrs), Av , Min:76 , Max:126 Diastolic (24hrs), Av, Min:57, Max:89 Physical Examination: General: AAO x 3, speaking in full sentences, no accessory muscle use. HEENT: Atraumatic, normocephalic, no throat congestion, moist mucosa. Eyes: Pupils equal, round and reactive to light, EOMI. Neck: No JVD, no thyromegaly, no lymphadenopathy. Chest: Bilateral vesicular breath sounds, no rales or wheezes. Cardiac: S1 S2 RR, no murmurs, gallops or rubs, JVP not raised. Abdomen: Soft, non-tender, no masses or organomegaly, BS audible. : No suprapubic or flank tenderness. Neuro: AAO x 3, No FND. SKIN: No rashes, good skin turgor. Extremities: No edema, palpable peripheral pulses, no calf tenderness. Labs: Recent Labs 11/09/23 0439 11/10/23 0322 11/11/23 0430 WBC 10.2 9.8 11.2 RBC 5.37* 5.13* 4.38 HGB 14.9 14.2 12.1 HCT 46.8 44.9 39.1 MCV 87.2 87.5 89.3 MCH 27.7 27.7 27.6 MCHC 31.8 31.6 30.9 RDW 14.2 14.1 14.1 PLT See Reflexed IPF Result See Reflexed IPF Result 91* MPV -- -- 11.5 BMP: Recent Labs 11/09/23 1009 11/10/23 0322 11/11/23 0430 NA 139 139 138 K 4.2 3.7 4.3 CL 109* 109* 108* CO2 16* 19* 20 BUN 32* 28* 30* CREATININE 3.1* 3.5* 3.4* GLUCOSE 89 64* 257* CALCIUM 8.7 8.3* 7.6* Phosphorus: No results for input(s): PHOS in the last 72 hours. Magnesium: Recent Labs 11/09/23 0439 11/10/23 0322 11/11/23 0430 MG 2.0 1.9 2.0 Albumin: No results for input(s): LABALBU in the last 72 hours. BNP: No results found for: BNP SAURABH: No results found for: SAURABH SPEP: Lab Results Component Value Date/Time ALBCAL 3.6 11/09/2023 12:38 PM ALBPCT 54 11/09/2023 12:38 PM A1PCT 7 11/09/2023 12:38 PM A2PCT 13 11/09/2023 12:38 PM BETAPCT 12 11/09/2023 12:38 PM GAMGLOB 0.9 11/09/2023 12:38 PM GGPCT 14 11/09/2023 12:38 PM PATH ELECTRONICALLY SIGNED. ANNE LIN M.D. 11/09/2023 12:38 PM UPEP: Lab Results Component Value Date/Time LABPE 11/09/2023 12:11 PM Elevated protein concentration. Most serum proteins are detected in this urine. Usually observed with markedly increased nonselective glomerular permaeabilty (severe glomerular disease) and/or contamination of urine with blood. A decrease in tubular function cannot be ruled out. C3: No results found for: C3 C4: No results found for: C4 MPO ANCA: No results found for: MPO PR3 ANCA: No results found for: PR3 Anti-GBM: No results found for: GBMABIGG Hep BsAg: No results found for: HEPBSAG Hep C AB: No results found for: HEPCAB Urinalysis/Chemistries: No results found for: NITRU , COLORU , PHUR , LABCAST , WBCUA , RBCUA , MUCUS , TRICHOMONAS , YEAST , BACTERIA , CLARITYU , SPECGRAV , LEUKOCYTESUR , UROBILINOGEN , BILIRUBINUR , BLOODU , GLUCOSEU , KETUA , AMORPHOUS Urine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 negative Imaging: Chest CT: 11/08/2023 Pericardial effusion, COPD Atrophic changes in the pancreas No confluent pneumonia, conflict pulmonary atelectasis or pleural effusion 11-08-23: I have personally reviewed the past medical history, past surgical history, medications, social history, and family history, and I have updated the database accordingly. Past Medical History: Past Medical History: Diagnosis Date Bladder cancer (HCC) Diabetes mellitus (HCC) History of renal transplant Hypertension Immunosuppression (HCC) Past Surgical History: Past Surgical History: Procedure Laterality Date CARDIAC CATHETERIZATION 11/10/2023 KIDNEY TRANSPLANT Medications: sodium chloride flush 5-40 mL IntraVENous 2 times per day Everolimus 0.75 mg Oral BID predniSONE 10 mg Oral Daily tacrolimus 0.5 mg Oral BID cefTRIAXone (ROCEPHIN) IV 2,000 mg IntraVENous Q24H levothyroxine 125 mcg Oral Daily sodium chloride flush 5-40 mL IntraVENous 2 times per day insulin lispro 0-8 Units SubCUTAneous TID WC insulin lispro 0-4 Units SubCUTAneous Nightly atorvastatin 40 mg Oral Nightly metoprolol tartrate 25 mg Oral BID Social History: Social History Socioeconomic History Marital status: Spouse name: Not on file Number of children: Not on file Years of education: Not on file Highest education level: Not on file Occupational History Not on file Tobacco Use Smoking status: Never Smokeless tobacco: Never Substance and Sexual Activity Alcohol use: Not on file Comment: occasional Drug use: Never Sexual activity: Not on file Other Topics Concern Not on file Social History Narrative Not on file Social Determinants of Health Financial Resource Strain: Low Risk (10/19/2023) Received from [facility] Overall Financial Resource Strain (CARDIA) Difficulty of Paying Living Expenses: Not hard at all Food Insecurity: No Food Insecurity (11/09/2023) Hunger Vital Sign Worried About Running Out of Food in the Last Year: Never true Ran Out of Food in the Last Year: Never true Transportation Needs: Patient Declined (11/09/2023) PRAPARE - Transportation Lack of Transportation (Medical): Patient declined Lack of Transportation (Non-Medical): Patient declined Physical Activity: Not on file Stress: No Stress Concern Present (10/19/2023) Received from [facility] [place] [facility] Occupational Health - Occupational Stress Questionnaire Feeling of Stress : Only a little Social Connections: Moderately Isolated (10/19/2023) Received from [facility] Social Connection and Isolation Panel [NHANES] Frequency of Communication with Friends and Family: More than three times a week Frequency of Social Gatherings with Friends and Family: More than three times a week Attends Adventism Services: Never Active Member of Clubs or Organizations: No Attends Club or Organization Meetings: Never Marital Status: Intimate Partner Violence: Not At Risk (10/19/2023) Received from [facility] Humiliation, Afraid, Rape, and Kick questionnaire Fear of Current or Ex-Partner: No Emotionally Abused: No Physically Abused: No Sexually Abused: No Housing Stability: Patient Declined (11/09/2023) Housing Stability Vital Sign Unable to Pay for Housing in the Last Year: Patient declined Number of Times Moved in the Last Year: 1 Homeless in the Last Year: Patient declined Family History: History reviewed. No pertinent family history. Allergies: Aspirin, Ibuprofen, Plavix [clopidogrel], and Amlodipine Review of Systems: Constitutional: No fevers or chills. No systemic complaints Head: No headaches Eyes: No double vision or blurry vision. No conjunctival inflammation. ENT: No sore throat or runny nose.. No hearing loss, tinnitus or vertigo. Cardiovascular: No chest pain or palpitations.No shortness of breath. No [place] Lung: No shortness of breath or cough. No sputum production Abdomen: No nausea, vomiting, diarrhea, or abdominal pain.. No cramps. Genitourinary: No increased urinary frequency, or dysuria. No hematuria. No suprapubic or CVA pain Musculoskeletal: No muscle aches or pains. No joint effusions, swelling or deformities Hematologic: No bleeding or bruising. Neurologic: No headache, weakness, numbness, or tingling. Integument: No rash, no ulcers. Psychiatric: No depression. Endocrine: No polyuria, no polydipsia, no polyphagia. Physical Examination : Patient Vitals for the past 8 hrs: BP Temp Temp src Pulse Resp SpO2 11/11/23 0415 95/72 -- -- 74 25 95 % 11/11/23 0400 105/62 98.8 F (37.1 C) Oral 75 20 96 % 11/11/23 0345 104/69 -- -- 74 22 96 % 11/11/23 0330 95/63 -- -- 74 24 95 % 11/11/23 0315 108/76 -- -- 78 19 93 % 11/11/23 0300 94/61 -- -- 73 23 96 % 11/11/23 0245 92/65 -- -- 74 19 96 % 11/11/23 0230 102/77 -- -- 75 25 94 % 11/11/23 0215 115/76 -- -- 76 22 96 % 11/11/23 0200 103/71 -- -- 76 26 97 % 11/11/23 0145 99/68 -- -- 78 (!) 32 96 % 11/11/23 0130 106/64 -- -- 79 26 96 % 11/11/23 0115 91/73 -- -- 81 22 96 % 11/11/23 0100 96/66 -- -- 81 25 98 % 11/11/23 0045 104/66 -- -- 83 18 95 % 11/11/23 0030 (!) 96/57 -- -- 82 24 96 % 11/11/23 0015 90/63 -- -- 84 20 95 % General Appearance: Awake, alert, and in no apparent distress Head: Normocephalic, no trauma Eyes: Pupils equal, round, reactive to light and accommodation; extraocular movements intact; sclera anicteric; conjunctivae pink. No embolic phenomena. ENT: Oropharynx clear, without erythema, exudate, or thrush. No tenderness of sinuses. Mouth/throat: mucosa pink and moist. No lesions. Dentition in good repair. Neck:Supple, without lymphadenopathy. Thyroid normal, No bruits. Pulmonary/Chest: Clear to auscultation, without wheezes, rales, or rhonchi. No dullness to percussion. Cardiovascular: Regular rate and rhythm without murmurs, rubs, or gallops. Abdomen: Soft, non tender. Bowel sounds normal. No organomegaly All four Extremities: No cyanosis, clubbing, edema, or effusions. Neurologic: No gross sensory or motor deficits. Skin: Warm and dry with good turgor.No signs of peripheral arterial or venous insufficiency. No ulcerations. No open wounds. Medical Decision Making -Laboratory: I have independently reviewed/ordered the following labs: CBC with Differential: Recent Labs 11/10/2332111/11/23429 WBC 9.8 11.2 HGB 14.2 12.1 HCT 44.9 39.1 PLT See Reflexed IPF Result 91* LYMPHOPCT 20* 14* MONOPCT 13* 13* EOSPCT 2 1 BMP: Recent Labs 11/10/2332111/11/23429 NA 139 138 K 3.7 4.3 CL 109* 108* CO2 19* 20 BUN 28* 30* CREATININE 3.5* 3.4* MG 1.9 2.0 Hepatic Function Panel: Recent Labs 11/08/232058 BILITOT 0.7 ALKPHOS 86 ALT 100* AST 72* No results for input(s): RPR in the last 72 hours. No results for input(s): HIV in the last 72 hours. No results for input(s): BC in the last 72 hours. Lab Results Component Value Date/Time RBC 4.38 11/11/2023 04:30 AM WBC 11.2 11/11/2023 04:30 AM Lab Results Component Value Date/Time CREATININE 3.4 11/11/2023 04:30 AM GLUCOSE 257 11/11/2023 04:30 AM Medical Decision Making-Imaging: CT CHEST WO CONTRAST Result Date: 11/09/2023 EXAMINATION: CT OF THE CHEST WITHOUT CONTRAST 11/08/2023 9:15 pm TECHNIQUE: CT of the chest was performed without the administration of intravenous contrast. Multiplanar reformatted images are provided for review. Automated exposure control, iterative reconstruction, and/or weight based adjustment of the mA/kV was utilized to reduce the radiation dose to as low as reasonably achievable. COMPARISON: None HISTORY: ORDERING SYSTEM PROVIDED HISTORY: hypoxia TECHNOLOGIST PROVIDED HISTORY: hypoxia Reason for Exam: hypoxia FINDINGS: Mediastinum: No evidence of hemorrhage or acute process in the mediastinum. No evidence of mediastinal mass or pathologic lymphadenopathy. Thoracic aorta appears to be of normal size. The diameter of the ascending thoracic aorta is 3.36 cm. Cardiac size appears to be within normal limits. There is pericardial effusion. Anterior to left heart the AP thickness of the pericardial effusion is 1.38 cm. At the posteroinferior aspect of left heart the maximal thickness of the pericardial effusion is 1.1 cm. No obvious coronary arterial calcifications demonstrated. Lungs/pleura: Minimal focal fibrotic changes can be identified at the posterolateral base of right pulmonary lower lobe and in the lateral aspect of lateral segment of right pulmonary lower lobe. In the inferior lingula of left lung there are minimal streaky fibrotic or atelectatic changes. At the lateral aspect of the apical segment of right pulmonary upper lobe there are minimal fibrotic changes noted. Rest of lung byrnes are clear. Lungs are mildly hyperinflated suggestive of COPD without any obvious bulla formation. No evidence of pleural effusion or pleural thickening, or pneumothorax or pneumomediastinum. Upper Abdomen: In the visualized upper and midportion of liver there is no focal abnormality or acute process. In visualized upper and midportion of gallbladder there is no definable abnormality. Fundus of gallbladder is not completely included. Spleen appears to be grossly normal. Moderate atrophic changes in the pancreas without acute process. Normal adrenal glands. Visualized upper portion of left kidney appears to be markedly atrophic. Right kidney is not visualized. No evidence of hiatal hernia. No pneumoperitoneum. Soft Tissues/Bones: No evidence of fracture or acute process or any other diagnostic finding in the thoracic spine. No definable fracture or focal abnormality in bilateral ribs or in rest of bony thorax. No acute process in the soft tissues of chest wall. 1. Pericardial effusion as described above. Maximal thickness of pericardial effusion is 1.38 cm. 2. COPD. 3. Minimal scattered fibrotic changes in the lungs as described above. No confluent pneumonia, confluent pulmonary atelectasis or pleural effusions. 4. Atrophic changes in the pancreas. 5. Markedly atrophic left kidney which is not completely visualized. Right kidney not visualized. Echo (TTE) complete (PRN contrast/bubble/strain/3D) Result Date: 11/09/2023 Left Ventricle: Preserved left ventricular systolic function. EF by visual approximation is 50%. Left ventricle size is normal. Severely increased wall thickness. Septal flattening in systole consistent with right ventricular pressure overload. Normal wall motion. Normal diastolic function. Right Ventricle: Right ventricle is severely dilated. Severely reduced systolic function. TAPSE is abnormal. TAPSE is 1.1 cm. Findings consistent with Summers's sign. Consider Pulm Embolism Rule Out if not done. Aortic Valve: Trileaflet valve. Thickened cusps. Mitral Valve: Trace regurgitation. Tricuspid Valve: Moderate regurgitation. Moderately elevated RVSP, consistent with moderate pulmonary hypertension. The estimated RVSP is 59 mmHg. Right Atrium: Right atrium is dilated. Pericardium: Trivial circumferential pericardial effusion present. IVC/SVC: IVC diameter is greater than 21 mm and decreases greater than 50% during inspiration; therefore the estimated right atrial pressure is intermediate (~8 mmHg). IVC is dilated. Image quality is technically difficult. Medical Decision [id number]: Results Procedure Component Value Units Date/Time Infectious Disease Intervention [[id number]] Order Status: Sent Respiratory Panel, Molecular, with COVID-19 (Restricted: peds pts or suitable admitted adults) [[id number]] Collected: 11/09/23744 Order Status: Completed Specimen: Nasopharyngeal Swab Updated: 11/09/23907 Specimen Description .NASOPHARYNGEAL SWAB Adenovirus PCR Not Detected Coronavirus 229E PCR Not Detected Coronavirus HKU1 PCR Not Detected Coronavirus NL63 PCR Not Detected Coronavirus OC43 PCR Not Detected SARS-CoV-2, PCR Not Detected Human Metapneumovirus PCR Not Detected Rhino/Enterovirus PCR Not Detected Influenza A by PCR Not Detected Influenza B by PCR Not Detected Parainfluenza 1 PCR Not Detected Parainfluenza 2 PCR Not Detected Parainfluenza 3 PCR Not Detected Parainfluenza 4 PCR Not Detected Resp Syncytial Virus PCR Not Detected Bordetella parapertussis by PCR Not Detected B Pertussis by PCR Not Detected Chlamydia pneumoniae By PCR Not Detected Mycoplasma pneumo by PCR Not Detected Comment: Performed by multiplexed nucleic acid assay. MRSA DNA Probe, Nasal [[id number]] Collected: 11/09/2345 Order Status: Completed Specimen: Nasal Updated: 11/10/23848 Specimen Description .NASAL SWAB MRSA, DNA, Nasal NEGATIVE Comment: NEGATIVE: MRSA DNA not detected by nucleic acid amplification. Results should be used as an adjunct to nosocomial control efforts to identify patients needing enhanced precautions. The test is not intended to identify patients with staphylococcal infections. Results should not be used to guide or monitor treatment for MRSA infections. LEGIONELLA ANTIGEN, URINE [[id number]] Collected: 11/08/23 2315 Order Status: Completed Specimen: Urine Updated: 11/09/23 1027 Legionella Pneumophilia Ag, Urine NEGATIVE Comment: L. pneumophila serogroup 1 antigen not detected. A negative result does not exclude infection with Leginella pnemophila serogroup 1 nor does it rule out other microbial-caused respiratory infections of disease caused by other serogroups of Legionella pneumophila. Culture, Blood 1 [[id number]] Collected: 11/08/232204 Order Status: Completed Specimen: Blood Updated: 11/11/2337 Specimen Description .BLOOD Special Requests R ARM 1ML Culture NO GROWTH 2 DAYS Culture, Blood 2 [[id number]] Collected: 11/08/232199 Order Status: Completed Specimen: Blood Updated: 11/11/2331 Specimen Description .BLOOD Special Requests R HAND 6ML Culture NO GROWTH 2 DAYS Culture, Respiratory [[id number]] Order Status: No result Specimen: Sputum Expectorated Strep Pneumoniae Antigen [[id number]] Collected: 11/08/23 0805 Order Status: Completed Specimen: Urine-clean catch from Urine, clean catch Updated: 11/09/23 1027 Source .URINE Strep pneumo Ag NEGATIVE Comment: Strep pneumoniae antigen not detected Medical Decision Making-Other: Note: Thank you for allowing us to participate in the care of this patient. Please call with questions. Eduardo Muhammad MD Pager: - Office: Images from the original note were not included. [employer] Technician Consult Note Today's Date: 11/11/2023 Patient Name: Ja Tavera Date of admission: 11/08/2023 7:47 PM Patient's age: 63 y.o., 1960 Admission Dx: Acute hypoxic respiratory failure (HCC) [J96.01] Reason for Consult: Cardiac evaluation Requesting Physician: William Mcknight MD REASON FOR CONSULT: Elevated Troponin Subjective: Seen and examined at bedside. Patient reports much improvement in her shortness of breath. Vitals and labs reviewed. History Obtained From: Patient, chart, staff, records HISTORY OF PRESENT ILLNESS: 63-year-old female with past medical history of bladder cancer on IV chemotherapy monthly, hypertension, renal transplant 2006 on tacrolimus, everolimus and prednisone. Insulin-dependent diabetes mellitus type 2. Patient had a recent admission at [facility] for progressively worsening shortness of breath after her PCP encouraged her to go to ED. Patient was desatting on room air 88 to 91% and she was placed on 2 L of oxygen. Chest x-ray showed consolidation. CT chest showed subtle groundglass changes within the lingula likely infectious bronchiolitis. Patient also had elevated D-dimer 11.36, DENIZ. Patient was started on heparin, IV Rocephin and IV azithromycin. Unable to obtain CTA to rule out PE due to renal transplant patient underwent VQ scan which came back negative for PE. Heparin discontinued on 10/19 and patient completed 3 days of IV azithromycin and Rocephin during hospital stay and was discharged on cefpodoxime for 3 more days. Patient also had a further workup for cryptococcus, histo, Q fever [place]. She followed up with infectious disease 1 week later and all the workup came back negative for atypical infection. At the time of discharge on 10/23/2023 oxygen evaluation was done and patient was discharged on 3 L of continuous home oxygen. She was desatting 84% on room air. Patient mentioned that she was using 3 L of oxygen but she was still getting short of breath mostly on exertion. Patient has been also provided history, he mentioned that yesterday patient took a nap and she looked comfortable. He went outside did some grocery and patient was still taking a nap after that patient went to take a shower and while she was taking a shower all of a sudden she started complaining of significant amount of shortness of breath that she could not breathe at all. At that time she was taken to ED. patient has been increased oxygen from 3 L to 5 L but she was still satting in 80s. Patient mentioned that she has been having shortness of breath for over 6 months which has been gradually worsening. She has multiple episodes where after exertion she gets so short of breath that she had to rest to catch her breath. Also noticed some intermittent cough and chest tightness. Denies any significant chest pain, nausea, dizziness, lightheadedness, abdominal pain, dysuria urgency or frequency. At outside hospital EKG was done showed T wave inversion in precordial leads. Very minimal ST depression in 2 and aVF. Right ventricular hypertrophy consistent with pulmonary disease. Past Medical History: has a past medical history of Bladder cancer (HCC), Diabetes mellitus (HCC), History of renal transplant, Hypertension, and Immunosuppression (HCC). Past Surgical History: has a past surgical history that includes Kidney transplant and Cardiac catheterization (11/10/2023). Home Medications: Prior to Admission medications Medication Sig Start Date End Date Taking? Authorizing Provider linagliptin (TRADJENTA) 5 MG tablet Take 1 tablet by mouth daily Yes Pool Nuñez MD Insulin Glargine, 2 Unit Dial, (TOUJEO MAX SOLOSTAR) 300 UNIT/ML SOPN Inject 55 Units into the skin daily Yes Pool Nuñez MD Injection Device for Insulin (INPEN [id number]) KURT 10 Units by Does not apply route Daily with supper Yes Pool Nuñez MD tacrolimus (PROGRAF) 5 MG capsule Take 1 capsule by mouth 2 times daily Yes Pool Nuñez MD Everolimus 0.75 MG TABS Take 0.75 mg by mouth 2 times daily Yes Pool Nuñez MD metoprolol tartrate (LOPRESSOR) 25 MG tablet Take 1 tablet by mouth 2 times daily Yes Pool Nuñez MD predniSONE (DELTASONE) 10 MG tablet Take 1 tablet by mouth daily Yes Pool Nuñez MD levothyroxine (SYNTHROID) 150 MCG tablet Take 1 tablet by mouth Daily Yes Pool Nuñez MD atorvastatin (LIPITOR) 40 MG tablet Take 1 tablet by mouth nightly PM Yes Pool Nuñez MD febuxostat (ULORIC) 40 MG TABS tablet Take 1 tablet by mouth daily am Yes Pool Nuñez MD famotidine (PEPCID) 20 MG tablet Take 1 tablet by mouth 2 times daily am Yes Pool Nuñez MD Multiple Vitamins-Minerals (THERAPEUTIC MULTIVITAMIN-MINERALS) tablet Take 1 tablet by mouth daily Yes Pool Nuñez MD Henderson-3 Fatty Acids (OMEGA-3 FISH OIL) 1000 MG CAPS Take 2,000 mg by mouth in the morning and 2,000 mg in the evening. Yes Pool Nuñez MD loratadine (CLARITIN) 10 MG capsule Take 1 capsule by mouth daily Yes Pool Nuñez MD magnesium oxide (MAG-OX) 400 (240 Mg) MG tablet Take 1 tablet by mouth nightly PM Yes Pool Nuñez MD bimatoprost (LUMIGAN) 0.01 % SOLN ophthalmic drops Place 1 drop into both eyes nightly PM Yes Pool Nuñez MD cycloSPORINE (RESTASIS) 0.05 % ophthalmic emulsion 1 drop 2 times daily Yes Pool Nuñez MD polyethyl glycol-propyl glycol 0.4-0.3 % (SYSTANE) 0.4-0.3 % ophthalmic solution 1 drop as needed for Dry Eyes Yes Pool Nuñez MD sodium chloride flush, 5-40 mL, IntraVENous, 2 times per day Everolimus, 0.75 mg, Oral, BID predniSONE, 10 mg, Oral, Daily tacrolimus, 0.5 mg, Oral, BID cefTRIAXone (ROCEPHIN) IV, 2,000 mg, IntraVENous, Q24H levothyroxine, 125 mcg, Oral, Daily sodium chloride flush, 5-40 mL, IntraVENous, 2 times per day insulin lispro, 0-8 Units, SubCUTAneous, TID WC insulin lispro, 0-4 Units, SubCUTAneous, Nightly atorvastatin, 40 mg, Oral, Nightly metoprolol tartrate, 25 mg, Oral, BID Allergies: Aspirin, Ibuprofen, Plavix [clopidogrel], and Amlodipine Social History: reports that she has never smoked. She has never used smokeless tobacco. She reports that she does not use drugs. Family History: family history is not on file. No h/o sudden cardiac . PHYSICAL EXAM: BP 95/72 Pulse 74 Temp 98.8 F (37.1 C) (Oral) Resp 25 Ht 1.676 m (5' 5.98 ) Wt 76.8 kg (169 lb 5 oz) SpO2 95% BMI 27.34 kg/m Constitutional and General Appearance: alert, cooperative, no distress and appears stated age HEENT: PERRL, no cervical lymphadenopathy. No masses palpable. Normal oral mucosa Respiratory: On High Flow. Cardiovascular: The apical impulse is not displaced Heart tones are crisp and normal. regular S1 and S2. Jugular venous pulsation Normal The carotid upstroke is normal in amplitude and contour without delay or bruit Peripheral pulses are symmetrical and full Abdomen: No masses or tenderness Bowel sounds present Extremities: No Cyanosis or Clubbing Lower extremity edema: No Skin: Warm and dry Neurological: Alert and oriented. Moves all extremities well No abnormalities of mood, affect, memory, mentation, or behavior are noted Labs: CBC: Recent Labs 11/10/2332111/11/230 WBC 9.8 11.2 HGB 14.2 12.1 HCT 44.9 39.1 PLT See Reflexed IPF Result 91* BMP: Recent Labs 11/10/23 03211/11/230 NA 139 138 K 3.7 4.3 CO2 19* 20 BUN 28* 30* CREATININE 3.5* 3.4* LABGLOM 14* 15* GLUCOSE 64* 257* BNP: No results for input(s): BNP in the last 72 hours. PT/INR: Recent Labs 11/09/23 1009 PROTIME 14.2 INR 1.1 APTT: Recent Labs 11/08/23205811/09/23 1009 APTT 52.7* 110.6* CARDIAC ENZYMES:No results for input(s): CKTOTAL , CKMB , CKMBINDEX , TROPONINI in the last 72 hours. FASTING LIPID PANEL:No results found for: HDL , LDLDIRECT , TRIG LIVER PROFILE: Recent Labs 11/08/232058 AST 72* ALT 100* Troponins: Invalid input(s): TROPONIN Other Current Problems Patient Active Problem List Diagnosis Acute hypoxic respiratory failure (HCC) Immunosuppression (HCC) Hypertension History of renal transplant Diabetes mellitus (HCC) Bladder cancer (HCC) DENIZ (acute kidney injury) (HCC) NSTEMI (non-ST elevated myocardial infarction) (HCC) Elevated d-dimer Leukocytosis Shortness of breath Pneumonia of both lungs due to infectious organism Biventricular congestive heart failure (HCC) Aortic atherosclerosis (HCC) Hypoglycemia Pericardial effusion Pulmonary hypertension (HCC) Cor pulmonale (HCC) Metabolic acidosis Arterial hypotension Pulmonary embolus (HCC) DIAGNOSTICS: EKG: Date: 11/11/23 Reading: No acute ischemia LAST ECHO: Date:11/09/2023. Findings Summary: Left Ventricle: Mildly reduced left ventricular systolic function with a visually estimated EF of 45 - 50%. Left ventricle size is normal. Severely increased wall thickness. Unable to perform left heart strain due to technically difficult apical images. Mild global hypokinesis present. Grade I diastolic dysfunction with normal LAP. Right Ventricle: Severely reduced systolic function. TAPSE is abnormal. TAPSE is 1.1 cm. Aortic Valve: Trileaflet valve. Thickened cusps. Tricuspid Valve: Moderate regurgitation. Moderately elevated RVSP, consistent with moderate pulmonary hypertension. The estimated RVSP is 59 mmHg. Right Atrium: Right atrium is dilated. Pericardium: Trivial circumferential pericardial effusion present. Image quality is technically difficult. LAST Stress Test: Date of last ST: Major Findings: LAST Cardiac Angiography:. Date: Findings: IMPRESSION: Elevated troponin likely type II Type IV pulmonary hypertension, PASP: 70, CTEPH s/p mechanical thrombectomy 11/10/2023 Cor pulmonale; acute versus acute on chronic Acute hypoxic respiratory failure, requiring high flow nasal cannula Suspected pulmonary embolism (elevated D-dimer, recent VQ scan was negative) s/p thrombectomy Right peroneal vein DVT Positive bubble study with agitated saline, suggestive intra-atrial stenting Mild pericardial effusion Recent hospitalization at [facility] for pneumonia Essential hypertension Diabetes mellitus Obesity Suspected sleep apnea Ho Renal Transplant 2006 on Immunosuppression Hypothyroidism DENIZ on CKD Recommendations: Troponin elevation is likely type II from hypoxia and right heart strain. No active signs and symptoms of ACS. Patient has developed pulmonary hypertension from possible chronic thromboembolism. Now status post thrombectomy her oxygen requirement has decreased but as per operative note of the PA systolic pressure remains at 70. ECHO reviewed. EF 45-50%. Mild global hypokinesis present. Grade I diastolic dysfunction. Moderate TR. Consistent with moderate pulmonary hypertension. Trivial circumferential pericardial effusion HR stable. Continue BB Continue statin Patient is on heparin infusion for positive DVT studies Rest of the management per primary team Replace electrolytes to keep K>4 and Mag>2. Jesica Martinez MD [facility]; [place], [place] 11/11/2023, 6:45 AM Attending Physician Statement I have discussed the case of Ja Tavera including pertinent history and exam findings with the student/resident/fellow. I have seen and examined the patient and the [place] elements of the encounter have been performed by me. I agree with the assessment, plan and orders as documented by the resident With changes made to the note. Attending Physician Statement I have discussed the case of Ja Tavera including pertinent history and exam findings with the student/resident/fellow. I have seen and examined the patient and the [place] elements of the encounter have been performed by me. I agree with the assessment, plan and orders as documented by the resident With changes made to the note. . [employer] Technician [phone] . [employer] Technician [phone] Images from the original note were not included. [facility] - Initial Consult Note Today's Date and Time: 11/10/2023, 5:45 PM Impression : Pneumonia Bladder cancer, IV chemotherapy perform monthly Renal transplant 2006, on tacrolimus, everolimus and prednisone Type 2 diabetes mellitus, insulin-dependent Hypertension Pulmonary embolism S/P thrombectomy of pulmonary artery 11/10/2023 Recommendations: IV Zosyn D/C IV linezolid D/C On ceftriaxone Medical Decision Making/Summary/Discussion:11/10/19 Elements of Medical Decision Making: Note: I have independently performed the steps listed below as part of the medical decision making and evaluation. Examined and discussed with patient. Possible pneumonia CHF with very high ProBNP Bladder cancer, IV chemotherapy, receives monthly Renal transplant 2006, on tacrolimus, everolimus and prednisone Type 2 diabetes mellitus, insulin-dependent Essential Hypertension Pulmonary embolus S/P thrombectomy of pulmonary artery 11/10/2023 Labs, medications, radiologic studies were reviewed with personal review of films Radiologic studies Lab work ProBNP: [id number] Cultures Blood: No growth Large amounts of data were reviewed Recent admissions at [facility] and [place] Evaluated for SOB Found to have bronchiolitis by CT There was also concern for pulmonary consolidation Treated with ceftriaxone and azythromycin Subsequently seen at [place] with worsening SOB Transferred to [facility] Cardiac cath scheduled on 11-10-23 Discussed with nursing Staff, capacity planner Dr Mcknight's service Infection Control and Prevention measures reviewed [place] precaution All prior entries were reviewed Administer medications as ordered Zosyn D/C Linezolid D/C Ceftriaxone 2 gm IV q 24 hr Prognosis: Guarded Discharge planning reviewed Follow up as outpatient. Eduardo Muhammad MD. 11/10/2023 Infection Control Recommendations [place] Precautions Antimicrobial Stewardship Recommendations Simplification of therapy Targeted therapy PK dosing Coordination of Outpatient Care: Estimated Length of IV antimicrobials:TBD Patient will need Midline Catheter Insertion: TBD Patient will need PICC line Insertion:TBD Patient will need: Home IV , Infusion Center, SNF, LTAC: TBD Patient will need outpatient wound care: No Chief complaint/reason for consultation: Pneumonia, unclear etiology History of Present Illness: Ja Tavera is a 63 y.o.-year-old female who was initially admitted on 11/08/2023. Patient seen at the request of . INITIAL HISTORY: Patient was originally seen at [facility] for progressive worsening shortness of breath. Her PCP encouraged her to go to the ED. Patient was desatting on room air 88 to 91% and was placed on 2 L of oxygen. A chest x-ray showed consolidation. CT chest showed subtle groundglass changes within the lingula this was likely infectious bronchiolitis. Patient had an elevated D-dimer at this time. Patient was started on heparin, IV Rocephin and IV azithromycin. Patient had a VQ scan which came back negative for PE and the heparin was discontinued on 10/19. Patient was discharged home on cefpodoxime mean for 3 days. Patient was worked up for cryptococcus and Q fever [place] and is immunosuppressed. However this workup came back negative for atypical infection. Upon discharge she was sent home on 3 L of continuous oxygen. Patient was brought back to the ED for continual shortness of breath. Her oxygen was increased from 3 L to 5 L. EKG was performed and showed right ventricular hypertrophy consistent with pulmonary disease. Patient was transferred to [facility] for further management. Patient is currently on IV linezolid and IV Zosyn. CURRENT EVALUATION 11/10/2023 BP (!) 83/69 Pulse 81 Temp 98 F (36.7 C) (Oral) Resp 20 Ht 1.676 m (5' 5.98 ) Wt 76.8 kg (169 lb 5 oz) SpO2 95% BMI 27.34 kg/m Patient evaluated and examined in the ICU. Afebrile Hypotensive Patient on high flow 02 Flow rate 35-->6 L/min Underwent pulmonary artery thrombectomy 11-10-23 No new issues reported Medications reviewed: On ceftriaxone Labs, X rays reviewed: 11/10/2023 BUN: 35-->28 Cr: 2.7-->3.5 WBC: 10.2-->9.8 Hb: 14.9-->14.2 Plat: 98 CRP: proBNP: 21,057 Lactic acid: 2.9 Troponin: 197, 192 Medications reviewed: ceftriaxone Cultures: Urine: Blood: 11/08/2023 no growth x 2 Sputum : Wound: MRSA Nares: In process 11/09/2023 Imaging: Chest CT: 11/08/2023 Pericardial effusion, COPD Atrophic changes in the pancreas No confluent pneumonia, conflict pulmonary atelectasis or pleural effusion 11-08-23: I have personally reviewed the past medical history, past surgical history, medications, social history, and family history, and I have updated the database accordingly. Past Medical History: Past Medical History: Diagnosis Date Bladder cancer (HCC) Diabetes mellitus (HCC) History of renal transplant Hypertension Immunosuppression (HCC) Past Surgical History: Past Surgical History: Procedure Laterality Date CARDIAC CATHETERIZATION 11/10/2023 KIDNEY TRANSPLANT Medications: iodixanol lidocaine sodium chloride flush 5-40 mL IntraVENous 2 times per day Everolimus 0.75 mg Oral BID predniSONE 10 mg Oral Daily tacrolimus 0.5 mg Oral BID cefTRIAXone (ROCEPHIN) IV 2,000 mg IntraVENous Q24H levothyroxine 125 mcg Oral Daily sodium chloride flush 5-40 mL IntraVENous 2 times per day insulin lispro 0-8 Units SubCUTAneous TID WC insulin lispro 0-4 Units SubCUTAneous Nightly atorvastatin 40 mg Oral Nightly metoprolol tartrate 25 mg Oral BID Social History: Social History Socioeconomic History Marital status: Spouse name: Not on file Number of children: Not on file Years of education: Not on file Highest education level: Not on file Occupational History Not on file Tobacco Use Smoking status: Never Smokeless tobacco: Never Substance and Sexual Activity Alcohol use: Not on file Comment: occasional Drug use: Never Sexual activity: Not on file Other Topics Concern Not on file Social History Narrative Not on file Social Determinants of Health Financial Resource Strain: Low Risk (10/19/2023) [facility] from [facility] Overall Financial Resource Strain (CARDIA) Difficulty of Paying Living Expenses: Not hard at all Food Insecurity: No Food Insecurity (11/09/2023) Hunger Vital Sign Worried About Running Out of Food in the Last Year: Never true Ran Out of Food in the Last Year: Never true Transportation Needs: Patient Declined (11/09/2023) PRAPARE - Transportation Lack of Transportation (Medical): Patient declined Lack of Transportation (Non-Medical): Patient declined Physical Activity: Not on file Stress: No Stress Concern Present (10/19/2023) Received from [facility] [place] [facility] - Occupational Stress Questionnaire Feeling of Stress : Only a little Social Connections: Moderately Isolated (10/19/2023) Received from [facility] Social Connection and Isolation Panel [NHANES] Frequency of Communication with Friends and Family: More than three times a week Frequency of Social Gatherings with Friends and Family: More than three times a week Attends [employer]ism Services: Never Active Member of Clubs or Organizations: No Attends Club or Organization Meetings: Never Marital Status: Intimate Partner Violence: Not At Risk (10/19/2023) Received from [facility] Humiliation, Afraid, Rape, and Kick questionnaire Fear of Current or Ex-Partner: No Emotionally Abused: No Physically Abused: No Sexually Abused: No Housing Stability: Patient Declined (11/09/2023) Housing Stability Vital Sign Unable to Pay for Housing in the Last Year: Patient declined Number of Times Moved in the Last Year: 1 Homeless in the Last Year: Patient declined Family History: History reviewed. No pertinent family history. Allergies: Aspirin, Ibuprofen, Plavix [clopidogrel], and Amlodipine Review of Systems: Constitutional: No fevers or chills. No systemic complaints Head: No headaches Eyes: No double vision or blurry vision. No conjunctival inflammation. ENT: No sore throat or runny nose.. No hearing loss, tinnitus or vertigo. Cardiovascular: No chest pain or palpitations.No shortness of breath. No JARAMILLO Lung: No shortness of breath or cough. No sputum production Abdomen: No nausea, vomiting, diarrhea, or abdominal pain.. No cramps. Genitourinary: No increased urinary frequency, or dysuria. No hematuria. No suprapubic or CVA pain Musculoskeletal: No muscle aches or pains. No joint effusions, swelling or deformities Hematologic: No bleeding or bruising. Neurologic: No headache, weakness, numbness, or tingling. Integument: No rash, no ulcers. Psychiatric: No depression. Endocrine: No polyuria, no polydipsia, no polyphagia. Physical Examination : Patient Vitals for the past 8 hrs: BP Temp Temp src Pulse Resp SpO2 Height 11/10/23 1700 (!) 83/69 -- -- 81 20 -- -- 11/10/23 1644 -- -- -- 85 20 95 % -- 11/10/23 1640 110/68 98 F (36.7 C) Oral 84 19 92 % -- 11/10/23 1431 -- -- -- -- -- -- 1.676 m (5' 5.98 ) 11/10/23 1400 107/64 -- -- 84 23 -- -- 11/10/23 1119 -- -- -- 78 17 95 % -- 11/10/23 1100 91/67 97.9 F (36.6 C) Temporal 77 25 93 % -- General Appearance: Awake, alert, and in no apparent distress Head: Normocephalic, no trauma Eyes: Pupils equal, round, reactive to light and accommodation; extraocular movements intact; sclera anicteric; conjunctivae pink. No embolic phenomena. ENT: Oropharynx clear, without erythema, exudate, or thrush. No tenderness of sinuses. Mouth/throat: mucosa pink and moist. No lesions. Dentition in good repair. Neck:Supple, without lymphadenopathy. Thyroid normal, No bruits. Pulmonary/Chest: Clear to auscultation, without wheezes, rales, or rhonchi. No dullness to percussion. Cardiovascular: Regular rate and rhythm without murmurs, rubs, or gallops. Abdomen: Soft, non tender. Bowel sounds normal. No organomegaly All four Extremities: No cyanosis, clubbing, edema, or effusions. Neurologic: No gross sensory or motor deficits. Skin: Warm and dry with good turgor.No signs of peripheral arterial or venous insufficiency. No ulcerations. No open wounds. Medical Decision Making -Laboratory: I have independently reviewed/ordered the following labs: CBC with Differential: Recent Labs 11/09/23 0439 11/10/23 0322 WBC 10.2 9.8 HGB 14.9 14.2 HCT 46.8 44.9 PLT See Reflexed IPF Result See Reflexed IPF Result LYMPHOPCT 19* 20* MONOPCT 15* 13* EOSPCT 2 2 BMP: Recent Labs 11/09/23 0439 11/09/23 1009 11/10/23 0322 NA -- 139 139 K -- 4.2 3.7 CL -- 109* 109* CO2 -- 16* 19* BUN -- 32* 28* CREATININE -- 3.1* 3.5* MG 2.0 -- 1.9 Hepatic Function Panel: Recent Labs 11/08/232058 BILITOT 0.7 ALKPHOS 86 ALT 100* AST 72* No results for input(s): RPR in the last 72 hours. No results for input(s): HIV in the last 72 hours. No results for input(s): BC in the last 72 hours. Lab Results Component Value Date/Time RBC 5.13 11/10/2023 03:22 AM WBC 9.8 11/10/2023 03:22 AM Lab Results Component Value Date/Time CREATININE 3.5 11/10/2023 03:22 AM GLUCOSE 64 11/10/2023 03:22 AM Medical Decision Making-Imaging: CT CHEST WO CONTRAST Result Date: 11/09/2023 EXAMINATION: CT OF THE CHEST WITHOUT CONTRAST 11/08/2023 9:15 pm TECHNIQUE: CT of the chest was performed without the administration of intravenous contrast. Multiplanar reformatted images are provided for review. Automated exposure control, iterative reconstruction, and/or weight based adjustment of the mA/kV was utilized to reduce the radiation dose to as low as reasonably achievable. COMPARISON: None HISTORY: ORDERING SYSTEM PROVIDED HISTORY: hypoxia TECHNOLOGIST PROVIDED HISTORY: hypoxia Reason for Exam: hypoxia FINDINGS: Mediastinum: No evidence of hemorrhage or acute process in the mediastinum. No evidence of mediastinal mass or pathologic lymphadenopathy. Thoracic aorta appears to be of normal size. The diameter of the ascending thoracic aorta is 3.36 cm. Cardiac size appears to be within normal limits. There is pericardial effusion. Anterior to left heart the AP thickness of the pericardial effusion is 1.38 cm. At the posteroinferior aspect of left heart the maximal thickness of the pericardial effusion is 1.1 cm. No obvious coronary arterial calcifications demonstrated. Lungs/pleura: Minimal focal fibrotic changes can be identified at the posterolateral base of right pulmonary lower lobe and in the lateral aspect of lateral segment of right pulmonary lower lobe. In the inferior lingula of left lung there are minimal streaky fibrotic or atelectatic changes. At the lateral aspect of the apical segment of right pulmonary upper lobe there are minimal fibrotic changes noted. Rest of lung byrnes are clear. Lungs are mildly hyperinflated suggestive of COPD without any obvious bulla formation. No evidence of pleural effusion or pleural thickening, or pneumothorax or pneumomediastinum. Upper Abdomen: In the visualized upper and midportion of liver there is no focal abnormality or acute process. In visualized upper and midportion of gallbladder there is no definable abnormality. Fundus of gallbladder is not completely included. Spleen appears to be grossly normal. Moderate atrophic changes in the pancreas without acute process. Normal adrenal glands. Visualized upper portion of left kidney appears to be markedly atrophic. Right kidney is not visualized. No evidence of hiatal hernia. No pneumoperitoneum. Soft Tissues/Bones: No evidence of fracture or acute process or any other diagnostic finding in the thoracic spine. No definable fracture or focal abnormality in bilateral ribs or in rest of bony thorax. No acute process in the soft tissues of chest wall. 1. Pericardial effusion as described above. Maximal thickness of pericardial effusion is 1.38 cm. 2. COPD. 3. Minimal scattered fibrotic changes in the lungs as described above. No confluent pneumonia, confluent pulmonary atelectasis or pleural effusions. 4. Atrophic changes in the pancreas. 5. Markedly atrophic left kidney which is not completely visualized. Right kidney not visualized. Echo (TTE) complete (PRN contrast/bubble/strain/3D) Result Date: 11/09/2023 Left Ventricle: Preserved left ventricular systolic function. EF by visual approximation is 50%. Left ventricle size is normal. Severely increased wall thickness. Septal flattening in systole consistent with right ventricular pressure overload. Normal wall motion. Normal diastolic function. Right Ventricle: Right ventricle is severely dilated. Severely reduced systolic function. TAPSE is abnormal. TAPSE is 1.1 cm. Findings consistent with Summers's sign. Consider Pulm Embolism Rule Out if not done. Aortic Valve: Trileaflet valve. Thickened cusps. Mitral Valve: Trace regurgitation. Tricuspid Valve: Moderate regurgitation. Moderately elevated RVSP, consistent with moderate pulmonary hypertension. The estimated RVSP is 59 mmHg. Right Atrium: Right atrium is dilated. Pericardium: Trivial circumferential pericardial effusion present. IVC/SVC: IVC diameter is greater than 21 mm and decreases greater than 50% during inspiration; therefore the estimated right atrial pressure is intermediate (~8 mmHg). IVC is dilated. Image quality is technically difficult. Medical Decision [id number]: Results Procedure Component Value Units Date/Time Infectious Disease Intervention [[id number]] Order Status: Sent Respiratory Panel, Molecular, with COVID-19 (Restricted: peds pts or suitable admitted adults) [[id number]] Collected: 11/09/23744 Order Status: Completed Specimen: Nasopharyngeal Swab Updated: 11/09/23 0908 Specimen Description .NASOPHARYNGEAL SWAB Adenovirus PCR Not Detected Coronavirus 229E PCR Not Detected Coronavirus HKU1 PCR Not Detected Coronavirus NL63 PCR Not Detected Coronavirus OC43 PCR Not Detected SARS-CoV-2, PCR Not Detected Human Metapneumovirus PCR Not Detected Rhino/Enterovirus PCR Not Detected Influenza A by PCR Not Detected Influenza B by PCR Not Detected Parainfluenza 1 PCR Not Detected Parainfluenza 2 PCR Not Detected Parainfluenza 3 PCR Not Detected Parainfluenza 4 PCR Not Detected Resp Syncytial Virus PCR Not Detected Bordetella parapertussis by PCR Not Detected B Pertussis by PCR Not Detected Chlamydia pneumoniae By PCR Not Detected Mycoplasma pneumo by PCR Not Detected Comment: Performed by multiplexed nucleic acid assay. MRSA DNA Probe, Nasal [[id number]] Collected: 11/09/23744 Order Status: Completed Specimen: Nasal Updated: 11/10/23 0849 Specimen Description .NASAL SWAB MRSA, DNA, Nasal NEGATIVE Comment: NEGATIVE: MRSA DNA not detected by nucleic acid amplification. Results should be used as an adjunct to nosocomial control efforts to identify patients needing enhanced precautions. The test is not intended to identify patients with staphylococcal infections. Results should not be used to guide or monitor treatment for MRSA infections. LEGIONELLA ANTIGEN, URINE [[id number]] Collected: 11/08/23 2315 Order Status: Completed Specimen: Urine Updated: 11/09/23 1027 Legionella Pneumophilia Ag, Urine NEGATIVE Comment: L. pneumophila serogroup 1 antigen not detected. A negative result does not exclude infection with Leginella pnemophila serogroup 1 nor does it rule out other microbial-caused respiratory infections of disease caused by other serogroups of Legionella pneumophila. Culture, Blood 1 [[id number]] Collected: 11/08/232204 Order Status: Completed Specimen: Blood Updated: 11/10/23 0038 Specimen Description .BLOOD Special Requests R ARM 1ML Culture NO GROWTH 1 DAY Culture, Blood 2 [[id number]] Collected: 11/08/232199 Order Status: Completed Specimen: Blood Updated: 11/10/23 0032 Specimen Description .BLOOD Special Requests R HAND 6ML Culture NO GROWTH 1 DAY Culture, Respiratory [[id number]] Order Status: No result Specimen: Sputum Expectorated Strep Pneumoniae Antigen [[id number]] Collected: 11/08/23 0805 Order Status: Completed Specimen: Urine-clean catch from Urine, clean catch Updated: 11/09/23 1027 Source .URINE Strep pneumo Ag NEGATIVE Comment: Strep pneumoniae antigen not detected Medical Decision Making-Other: Note: Thank you for allowing us to participate in the care of this patient. Please call with questions. Eduardo Muhammad MD Pager: - Office: Patient transferred to room 1025 on CAR1. Called RN and gave report. RN had no further questions Came to see the patient but was gone for procedure. Patient admitted, consent signed and questions answered. Patient ready for procedure. Call light to reach with side rails up 2 of 2. Family at bedside with patient. History and physical completed. Cardiac cath is cancelled for today will proceed with Inari procedure. Images from the original note were not included. [employer] Progress Note Date: 11/10/2023 Patient name: Ja Tavera Date of admission: 11/08/2023 7:47 PM Date of : 1960 PCP: Alejandro Villagran MD Reason for Admission: Acute hypoxic respiratory failure (HCC) [J96.01] Subjective: Clinical Changes / Abnormalities: Pt seen and examined in the room. Patient resting in bed. Pt denies any current CP. Reports continued sob. Labs, vitals and tele reviewed- SR 72 High flow supplemental oxygen in place Patient NPO for RHC today Medications: Scheduled Meds: Everolimus 0.75 mg Oral BID predniSONE 10 mg Oral Daily tacrolimus 0.5 mg Oral BID cefTRIAXone (ROCEPHIN) IV 2,000 mg IntraVENous Q24H levothyroxine 125 mcg Oral Daily sodium chloride flush 5-40 mL IntraVENous 2 times per day insulin lispro 0-8 Units SubCUTAneous TID WC insulin lispro 0-4 Units SubCUTAneous Nightly atorvastatin 40 mg Oral Nightly metoprolol tartrate 25 mg Oral BID Continuous Infusions: heparin (PORCINE) Infusion 12 Units/kg/hr (11/10/23 0456) sodium bicarbonate 75 mEq in dextrose 5 % and 0.45 % NaCl 1,000 mL infusion 75 mL/hr at 11/10/23 0823 sodium chloride dextrose CBC: Recent Labs 11/08/23205811/09/23 0439 11/10/23 0322 WBC 11.8* 10.2 9.8 HGB 17.3* 14.9 14.2 PLT See Reflexed IPF Result See Reflexed IPF Result See Reflexed IPF Result BMP: Recent Labs 11/08/23205811/09/23 1009 11/10/23 0322 NA 142 139 139 K 4.0 4.2 3.7 CL 111* 109* 109* CO2 16* 16* 19* BUN 35* 32* 28* CREATININE 2.7* 3.1* 3.5* GLUCOSE 105* 89 64* Hepatic: Recent Labs 11/08/232058 AST 72* ALT 100* BILITOT 0.7 ALKPHOS 86 Troponin: Recent Labs 11/08/23220411/09/23 0036 11/09/23 0439 TROPHS 197* 192* 184* BNP: No results for input(s): BNP in the last 72 hours. Lipids: No results for input(s): CHOL , HDL in the last 72 hours. Invalid input(s): LDLCALCU INR: Recent Labs 11/09/23 1009 INR 1.1 Objective: Vitals: BP 91/67 Pulse 78 Temp 97.9 F (36.6 C) (Temporal) Resp 17 Ht 1.676 m (5' 6 ) Wt 76.8 kg (169 lb 5 oz) SpO2 95% BMI 27.33 kg/m General appearance: alert and cooperative with exam HEENT: Head: Normocephalic, no lesions, without obvious abnormality. Neck: no JVD, trachea midline, no adenopathy Lungs: Clear to auscultation Heart: Regular rate and rhythm, s1/s2 auscultated, no murmurs Abdomen: soft, non-tender, bowel sounds active Extremities: no edema Neurologic: not done EKG: Date: 11/09/23 Reading: No acute ischemia LAST ECHO: Date:11/09/2023. Findings Summary: Left Ventricle: Mildly reduced left ventricular systolic function with a visually estimated EF of 45 - 50%. Left ventricle size is normal. Severely increased wall thickness. Unable to perform left heart strain due to technically difficult apical images. Mild global hypokinesis present. Grade I diastolic dysfunction with normal LAP. Right Ventricle: Severely reduced systolic function. TAPSE is abnormal. TAPSE is 1.1 cm. Aortic Valve: Trileaflet valve. Thickened cusps. Tricuspid Valve: Moderate regurgitation. Moderately elevated RVSP, consistent with moderate pulmonary hypertension. The estimated RVSP is 59 mmHg. Right Atrium: Right atrium is dilated. Pericardium: Trivial circumferential pericardial effusion present. Image quality is technically difficult. Assessment / Acute Cardiac Problems: Pericardial effusion maximal thickness measuring 1.38cm on CT COPD H/o Bladder Cancer on Chemotherapy Hypertension Hyperlipidemia Ho Renal Transplant 2006 on Immunosuppression Type 2 Diabetes Mellitus on Insulin. Hypothyroidism Acute Hypoxic Respiratory failure NSTEMI DENIZ on CKD Patient Active Problem List: Acute hypoxic respiratory failure (HCC) Immunosuppression (HCC) Hypertension History of renal transplant Diabetes mellitus (HCC) Bladder cancer (HCC) DENIZ (acute kidney injury) (HCC) NSTEMI (non-ST elevated myocardial infarction) (HCC) Elevated d-dimer Leukocytosis Shortness of breath Pneumonia of both lungs due to infectious organism Biventricular congestive heart failure (HCC) Aortic atherosclerosis (HCC) Hypoglycemia Pericardial effusion Pulmonary hypertension (HCC) Cor pulmonale (HCC) Metabolic acidosis Arterial hypotension Plan of Treatment: ECHO reviewed. EF 45-50%. Mild global hypokinesis present. Grade I diastolic dysfunction. Moderate TR. Consistent with moderate pulmonary hypertension. Trivial circumferential pericardial effusion BP low this AM HR stable. Continue BB Remains on high flow oxygen Continue statin Patient scheduled for RHC today [employer] [phone] Images from the original note were not included. [facility] Office: [phone] Tonny Boyle DO, Henri Martin DO, Jarred Peña DO, Paras Shankar DO, Curtis Sprague MD, Samia Allen MD, Denise Oneal MD, Fatou Robb MD, Juvencio Chacon MD, Melany Sherman MD, Todd Boyle MD, Lashaun Womack DO, Sandy Ma MD, Reilly Miller MD, Brigido Boyle DO, Kaylee Watson MD, Kendell Patterson DO, Alpa White MD, Venessa Jones MD, Elba Garcias MD, Sandra Turner MD, Jarvis Herbert MD, Netta Wall MD, Sue Spencer MD, William Mcknight MD, Harsh Contreras MD, Dara Mitchell MD, Alejandro Arroyo DO, Douglas Ware DO, Bora Ashton DO, Maikel Varma MD, Cindy Daley CNP, Mireille Jaeger CNP, Alejandro Aly CNP, Lynn Reyes DNP, Marilyn Aldana CNP, Yessi Choi CNP, Magalys Bartlett CNP, Saba Skelton CNP, RAMOS DentC, RAMOS KeysC, Sena Patton, INDIRA, Iker Car CNP, Estee Cueto, OFFICE ASSOCIATE, Bonnie Bush, OFFICE ASSOCIATE, Carine Kwan, OFFICE ASSOCIATE, Oksana Perez, ASHLEY, Merlene Castro, OFFICE ASSOCIATE, Lilliam Conte, OFFICE ASSOCIATE, Krystal Howard, OFFICE ASSOCIATE [facility] IN-PATIENT SERVICE [facility] Progress Note 11/10/2023 11:16 AM Name: Ja Tavera Acct: [id number] Room: [address] [place] [address] Day: 2 Admit Date: 11/08/2023 7:47 PM PCP: Alejandro Villagran MD Code Status: Full Code Subjective: A patient was seen and examined at time of my evaluation patient was in mild distress continues to report chest tightness difficulty breathing, remain high flow Remain heparin drip cardiology on board planning for right heart primer charger vital sign consult note reviewed Brief History: 61-year-old female presented to the hospital for evaluation of shortness of breath and concerns for pulmonary embolism. Patient was recently discharged from [facility] where she was treated for pneumonia after chest x-ray showed bilateral groundglass opacities. At that time VQ scan was negative for PE. On admission, patient underwent echocardiogram which showed an ejection fraction of 50% with right ventricular dilatation and severely reduced systolic function concerning for Summers sign. She also had moderate tricuspid regurgitation along with moderate pulmonary pretension with RVSP of 59 and an IVC diameter 21 mmHg. Patient was admitted seen by vascular surgery due to concerns for pulm embolism. She does have a history of renal transplant and was seen by nephrology as well Medications: Allergies: Allergies Allergen Reactions Aspirin Other (See Comments) Pt states she is allergic bc she is taking immunosuppressants meds that has a reaction to Asprin Ibuprofen Other (See Comments) Pt states she is allergic bc she is taking immunosuppressants meds that has a reaction to Ibuprofen Plavix [Clopidogrel] Other (See Comments) Pt states she is allergic bc she is taking immunosuppressants meds that has a reaction to plavix Amlodipine Rash Current Meds: Scheduled Meds: Everolimus 0.75 mg Oral BID predniSONE 10 mg Oral Daily tacrolimus 0.5 mg Oral BID cefTRIAXone (ROCEPHIN) IV 2,000 mg IntraVENous Q24H levothyroxine 125 mcg Oral Daily sodium chloride flush 5-40 mL IntraVENous 2 times per day insulin lispro 0-8 Units SubCUTAneous TID WC insulin lispro 0-4 Units SubCUTAneous Nightly atorvastatin 40 mg Oral Nightly metoprolol tartrate 25 mg Oral BID Continuous Infusions: heparin (PORCINE) Infusion 12 Units/kg/hr (11/10/23 0456) sodium bicarbonate 75 mEq in dextrose 5 % and 0.45 % NaCl 1,000 mL infusion 75 mL/hr at 11/10/23 0823 sodium chloride dextrose PRN Meds: heparin (porcine), heparin (porcine), sodium chloride flush, sodium chloride, ondansetron OR ondansetron, polyethylene glycol, acetaminophen OR acetaminophen, potassium chloride OR potassium alternative oral replacement OR potassium chloride, magnesium sulfate, glucose, dextrose bolus OR dextrose bolus, glucagon (rDNA), dextrose Data: Vitals: BP (!) 81/66 Pulse 73 Temp 97.9 F (36.6 C) (Temporal) Resp 28 Ht 1.676 m (5' 6 ) Wt 76.8 kg (169 lb 5 oz) SpO2 94% BMI 27.33 kg/m Temp (24hrs), Av.6 F (37 C), Min:97.9 F (36.6 C), Max:100.4 F (38 C) Recent Labs 11/09/23192411/10/23 0520 11/10/23 0756 11/10/23 0945 POCGLU 114* 117* 49* 96 I/O (24Hr): Intake/Output Summary (Last 24 hours) at 11/10/2023 1116 Last data filed at 11/10/2023 0433 Gross per 24 hour Intake 300 ml Output 1130 ml Net -830 ml Labs: Hematology: Recent Labs 11/08/23205811/09/23 04311/09/23 1009 11/10/23 0322 WBC 11.8* 10.2 -- 9.8 RBC 6.16* 5.37* -- 5.13* HGB 17.3* 14.9 -- 14.2 HCT 54.1* 46.8 -- 44.9 MCV 87.8 87.2 -- 87.5 MCH 28.1 27.7 -- 27.7 MCHC 32.0 31.8 -- 31.6 RDW 14.1 14.2 -- 14.1 PLT See Reflexed IPF Result See Reflexed IPF Result -- See Reflexed IPF Result INR -- -- 1.1 -- DDIMER 13.32* -- -- -- Chemistry: Recent Labs 11/08/23205811/08/235 11/09/23 0036 11/09/23 0439 11/09/23 1009 11/09/23 1111 11/10/23 0322 NA 142 -- -- -- 139 -- 139 K 4.0 -- -- -- 4.2 -- 3.7 CL 111* -- -- -- 109* -- 109* CO2 16* -- -- -- 16* -- 19* GLUCOSE 105* -- -- -- 89 -- 64* BUN 35* -- -- -- 32* -- 28* CREATININE 2.7* -- -- -- 3.1* -- 3.5* MG -- -- -- 2.0 -- -- 1.9 ANIONGAP 15 -- -- -- 14 -- 11 LABGLOM 20* -- -- -- 16* -- 14* CALCIUM 9.9 -- -- -- 8.7 -- 8.3* PROBNP 21,057* -- -- -- -- -- -- TROPHS 192* 197* 192* 184* -- -- -- LACTACIDWB -- 2.9* -- -- -- 1.6 -- Recent Labs 11/08/23205811/09/23 0330 11/09/23 0439 11/09/23 0610 11/09/23 1648 11/09/23 1847 11/09/23 1925 11/10/23 0520 11/10/23 0756 11/10/23 0945 TSH -- -- 0.03* -- -- -- -- -- -- -- AST 72* -- -- -- -- -- -- -- -- -- ALT 100* -- -- -- -- -- -- -- -- -- ALKPHOS 86 -- -- -- -- -- -- -- -- -- BILITOT 0.7 -- -- -- -- -- -- -- -- -- POCGLU -- < > -- < > 86 77 114* 117* 49* 96 < > = values in this interval not displayed. ABG: Lab Results Component Value Date/Time POCPH 7.458 11/09/2023 06:22 AM POCPCO2 29.6 11/09/2023 06:22 AM POCPO2 84.8 11/09/2023 06:22 AM POCHCO3 21.0 11/09/2023 06:22 AM NBEA 1.7 11/09/2023 06:22 AM [id number] 97.1 11/09/2023 06:22 AM FIO2 INFORMATION NOT PROVIDED 11/09/2023 11:11 AM Lab Results Component Value Date/Time SPECIAL R ARM 1ML 11/08/2023 10:05 PM Lab Results Component Value Date/Time CULTURE NO GROWTH 1 DAY 11/08/2023 10:05 PM Radiology: CT CHEST WO CONTRAST Result Date: 11/08/2023 1. Pericardial effusion as described above. Maximal thickness of pericardial effusion is 1.38 cm. 2. COPD. 3. Minimal scattered fibrotic changes in the lungs as described above. No confluent pneumonia, confluent pulmonary atelectasis or pleural effusions. 4. Atrophic changes in the pancreas. 5. Markedly atrophic left kidney which is not completely visualized. Right kidney not visualized. Physical Examination: General appearance: alert, cooperative and uncomfortable appearing female Mental Status: oriented to person, place and time and normal affect Lungs: Diminished breath sounds at the bases bilaterally, normal effort, on high flow nasal cannula Heart: regular rate and rhythm, no murmur Abdomen: soft, nontender, nondistended, normal bowel sounds, no masses, hepatomegaly, splenomegaly Extremities: no edema, redness, tenderness in the calves Skin: no gross lesions, rashes, induration Assessment: Hospital Problems Last Modified POA * (Principal) Acute hypoxic respiratory failure ([facility]) 11/08/2023 Yes Immunosuppression ([facility]) 11/08/2023 Yes Hypertension 11/08/2023 Yes History of renal transplant 11/08/2023 Yes Diabetes mellitus ([facility]) 11/08/2023 Yes Bladder cancer ([facility]) 11/08/2023 Yes DENIZ (acute kidney injury) ([facility]) 11/08/2023 Yes NSTEMI (non-ST elevated myocardial infarction) ([facility]) 11/08/2023 Yes Elevated d-dimer 11/08/2023 Yes Leukocytosis 11/08/2023 Yes Shortness of breath 11/09/2023 Yes Pneumonia of both lungs due to infectious organism 11/09/2023 Yes Biventricular congestive heart failure (HCC) 11/09/2023 Yes Aortic atherosclerosis (HCC) 11/09/2023 Yes Hypoglycemia 11/09/2023 Yes Pericardial effusion 11/09/2023 Yes Pulmonary hypertension (HCC) 11/09/2023 Yes Cor pulmonale (HCC) 11/09/2023 Yes Metabolic acidosis 11/09/2023 Yes Arterial hypotension 11/09/2023 Yes Plan: Acute hypoxic respiratory failure requiring oxygen supplement, currently patient on high flow, continue with oxygen supplement wean off as tolerated symptoms could be due to pneumonia versus pulmonary embolism, 2D echo with Summers sign concerning for PE, continue with heparin, vascular and pulmonology is following appreciate input, cardiology on board and planning for right heart cath Hypotension patient blood pressure remains soft however maps remained above 65, will continue to monitor Acute kidney injury continue to monitor BMP, avoid nephrotoxic agent, nephrology is following appreciate input ESRD with renal transplant on tacrolimus everolimus and prednisone continue Diabetes continue with insulin sliding scale diabetic diet and glucose check Bladder cancer on IV chemotherapy, patient to follow-up with oncology Abnormal TSH TSH 0.03, T4: 2. Decrease dose of synthroid Medical Decision Making: High William Mcknight MD 11/10/2023 11:16 AM Images from the original note were not included. PULMONARY & CRITICAL CARE MEDICINE PROGRESS NOTE Patient: Ja Tavera Admit date: 11/08/2023 Primary Care Physician: Alejandro Villagran MD CODE Status: Full Code LOS: 2 SUBJECTIVE CHIEF COMPLAINT/REASON FOR CONSULT: No chief complaint on file. HISTORY OF PRESENT ILLNESS: The patient is a 63 y.o. female with history of diabetes, hypertension, bladder cancer, renal failure, s/p renal transplant; on immunosuppressive therapy (tacrolimus, everolimus and prednisone) of. Patient was recently hospitalized at [facility] with worsening shortness of breath. Patient was referred to ED by her primary care provider noted her to be hypoxemic. During evaluation D-dimer was elevated at 11.36, her CT chest showed subtle groundglass infiltrate involving the lingula. She was started on heparin infusion along with empiric Rocephin/azithromycin. Her VQ scan was reported to be negative after which heparin was discontinued. Patient was discharged on home O2 at 3 L/min. Patient now admitted with worsening shortness of breath. Patient was hypoxemic on presentation and was started on high flow nasal cannula. She denies any history of asthma, COPD or sleep apnea. However reports difficulty in laying flat in the bed. Lab evaluation in the ED shows WBC of 14, hemoglobin 15, creatinine of 2.7, bicarb 20, anion gap of 18, mildly elevated transaminases, proBNP is elevated at 24,370. Respiratory panel is negative. CT chest showed a pericardial effusion with minimal scattered fibrotic changes. Echocardiogram showed preserved LV function, EF 50%, severely thickened wall thickness, with septal flattening in systole, RV severely dilated with TAPSE of 1.1 and finding consistent with Summers sign. Moderate tricuspid regurgitation, RVSP 59 suggestive moderate pulmonary hypertension. Bubble study with agitated saline reported to be grade 2 positive (10-20 bubbles) suggestive of intracardiac shunting. INTERVAL HISTORY: 11/10/2023 Remains on high flow nasal cannula Blood pressure slightly on lower side Continues on heparin infusion Plan for mechanical thrombectomy by vascular surgery this afternoon REVIEW OF SYSTEMS: Review of Systems Constitutional: Positive for fatigue. Negative for fever. HENT: Negative for voice change. Eyes: Negative for visual disturbance. Respiratory: Positive for shortness of breath. Negative for chest tightness. Gastrointestinal: Negative for abdominal pain, diarrhea and vomiting. Genitourinary: Negative for dysuria and urgency. Musculoskeletal: Negative for joint swelling. Allergic/Immunologic: Negative for environmental allergies and immunocompromised state. Neurological: Positive for weakness. Hematological: Negative for adenopathy. Does not bruise/bleed easily. Psychiatric/Behavioral: Negative for behavioral problems. OBJECTIVE VITAL SIGNS: LAST: BP (!) 81/66 Pulse 73 Temp 97.9 F (36.6 C) (Temporal) Resp 28 Ht 1.676 m (5' 6 ) Wt 76.8 kg (169 lb 5 oz) SpO2 94% BMI 27.33 kg/m 8-24 HR RANGE: TEMP Temp Av.4 F (36.9 C) Min: 97.7 F (36.5 C) Max: 100.4 F (38 C) BP Systolic (24hrs), Av , Min:78 , Max:131 Diastolic (24hrs), Av, Min:53, Max:112 PULSE Pulse Av.3 Min: 73 Max: 83 RR Resp Av.9 Min: 21 Max: 31 O2 SAT SpO2 Av.7 % Min: 91 % Max: 94 % OXYGEN DELIVERY O2 Flow Rate (L/min) Av.7 L/min Min: 35 L/min Max: 40 L/min PHYSICAL EXAM: Physical Exam Constitutional: General: She is awake. Appearance: She is overweight. She is ill-appearing. Interventions: Nasal cannula in place. Comments: HFNC HENT: Head: Normocephalic and atraumatic. Eyes: General: No scleral icterus. Conjunctiva/sclera: Conjunctivae normal. Neck: Vascular: JVD present. Cardiovascular: Rate and Rhythm: Normal rate. Heart sounds: S1 normal and S2 normal. No murmur heard. Pulmonary: Effort: Accessory muscle usage and prolonged expiration present. No respiratory distress. Breath sounds: Decreased air movement present. Rales present. Abdominal: General: Bowel sounds are normal. Palpations: Abdomen is soft. Tenderness: There is no abdominal tenderness. Musculoskeletal: Right lower leg: No edema. Left lower leg: No edema. Skin: Coloration: Skin is not pale. Findings: No rash. Neurological: General: No focal deficit present. Mental Status: She is alert. DATA REVIEW CURRENT MEDICATIONS: Scheduled Meds: Everolimus 0.75 mg Oral BID predniSONE 10 mg Oral Daily tacrolimus 0.5 mg Oral BID cefTRIAXone (ROCEPHIN) IV 2,000 mg IntraVENous Q24H levothyroxine 125 mcg Oral Daily sodium chloride flush 5-40 mL IntraVENous 2 times per day insulin lispro 0-8 Units SubCUTAneous TID insulin lispro 0-4 Units SubCUTAneous Nightly atorvastatin 40 mg Oral Nightly metoprolol tartrate 25 mg Oral BID Continuous Infusions: heparin (PORCINE) Infusion 12 Units/kg/hr (11/10/23 0456) sodium bicarbonate 75 mEq in dextrose 5 % and 0.45 % NaCl 1,000 mL infusion 75 mL/hr at 11/10/23 0823 sodium chloride dextrose INPUT/OUTPUT: In: 300 [P.O.:300] Out: 1130 [Urine:1130] Date 11/10/23 0000 - 11/10/23 2359 Shift 5166-6905 0984-7136 2063-1412 24 Hour Total INTAKE Shift Total(mL/kg) OUTPUT Urine(mL/kg/hr) 430(0.7) 430 Shift Total(mL/kg) 430(5.6) 430(5.6) Weight (kg) 76.8 76.8 76.8 76.8 LABORATORY RESULTS: BLOOD GASES: Recent Labs 11/09/23 0622 POCPH 7.458* POCPCO2 29.6* POCPO2 84.8 POCHCO3 21.0 [id number] 97.1 COMPLETE BLOOD COUNTS: Recent Labs 11/08/23205811/09/2343811/10/23321 WBC 11.8* 10.2 9.8 HGB 17.3* 14.9 14.2 HCT 54.1* 46.8 44.9 MCV 87.8 87.2 87.5 PLT See Reflexed IPF Result See Reflexed IPF Result See Reflexed IPF Result LYMPHOPCT 20* 19* 20* RBC 6.16* 5.37* 5.13* MCH 28.1 27.7 27.7 MCHC 32.0 31.8 31.6 RDW 14.1 14.2 14.1 C-REACTIVE PROTEIN: No results for input(s): CRP in the last 72 hours. LACTATE DEHYDROGENASE: No results for input(s): LDH in the last 72 hours. BASIC METABOLIC PROFILE: Recent Labs 11/08/23205811/09/2343811/09/23100811/10/23321 NA 142 -- 139 139 K 4.0 -- 4.2 3.7 CL 111* -- 109* 109* CO2 16* -- 16* 19* BUN 35* -- 32* 28* CREATININE 2.7* -- 3.1* 3.5* GLUCOSE 105* -- 89 64* MG -- 2.0 -- 1.9 LIVER FUNCTION TESTS: Recent Labs 11/08/232058 ALT 100* AST 72* ALKPHOS 86 BILITOT 0.7 COAGULATION PROFILE: Recent Labs 11/08/23205811/09/231008 INR -- 1.1 PROTIME -- 14.2 APTT 52.7* 110.6* D-DIMER: Recent Labs 11/08/232058 DDIMER 13.32* LACTIC ACID: No results for input(s): LACTA in the last 72 hours. CARDIAC ENZYMES: No results for input(s): CKTOTAL , CKMB , CKMBINDEX , TROPONINI in the last 72 hours. Invalid input(s): TROPONIN , HSTROP BRAIN NATRIURETIC PEPTIDE/PRO-BRAIN NATRURETIC PEPTIDE: Recent Labs 11/08/239 PROBNP 21,057* TRIGLYCERIDES: No results for input(s): TRIG in the last 72 hours. MICROBIOLOGY RESULTS: URINE CULTURE: No components found for: CURINE BLOOD CULTURE: No components found for: CBLOOD , CFUNGUSBL SPUTUM CULTURE: No components found for: CSPUTUM Recent Labs 11/08/23219911/08/23220411/09/23 0745 SPECDESC .BLOOD .BLOOD .NASAL SWAB .NASOPHARYNGEAL SWAB SPECIAL R HAND 6ML R ARM 1ML -- CULTURE NO GROWTH 1 DAY NO GROWTH 1 DAY -- PATHOLOGY RESULTS: RADIOLOGY REPORTS: Vascular duplex lower extremity venous bilateral Final Result Vascular duplex mesenteric artery Final Result XR CHEST PORTABLE Final Result No acute cardiopulmonary disease. CT CHEST WO CONTRAST Final Result 1. Pericardial effusion as described above. Maximal thickness of pericardial effusion is 1.38 cm. 2. COPD. 3. Minimal scattered fibrotic changes in the lungs as described above. No confluent pneumonia, confluent pulmonary atelectasis or pleural effusions. 4. Atrophic changes in the pancreas. 5. Markedly atrophic left kidney which is not completely visualized. Right kidney not visualized. ECHOCARDIOGRAM: Results for orders placed during the hospital encounter of 11/08/23 Echo (TTE) complete (PRN contrast/bubble/strain/3D) Interpretation Summary Left Ventricle: Preserved left ventricular systolic function. EF by visual approximation is 50%. Left ventricle size is normal. Severely increased wall thickness. Septal flattening in systole consistent with right ventricular pressure overload. Normal wall motion. Normal diastolic function. Right Ventricle: Right ventricle is severely dilated. Severely reduced systolic function. TAPSE is abnormal. TAPSE is 1.1 cm. Findings consistent with Summers's sign. Consider Pulm Embolism Rule Out if not done. Right Ventricle: Right ventricle is severely dilated. Severely reduced systolic function. TAPSE is abnormal. TAPSE is 1.1 cm. Findings consistent with Summers's sign. Aortic Valve: Trileaflet valve. Thickened cusps. Mitral Valve: Trace regurgitation. Tricuspid Valve: Moderate regurgitation. Moderately elevated RVSP, consistent with moderate pulmonary hypertension. The estimated RVSP is 59 mmHg. Interatrial Septum: Grade II Positive (10 to 20 bubbles). Agitated saline study was positive without provocation. Right Atrium: Right atrium is dilated. Pericardium: Trivial circumferential pericardial effusion present. IVC/SVC: IVC diameter is greater than 21 mm and decreases greater than 50% during inspiration; therefore the estimated right atrial pressure is intermediate (~8 mmHg). IVC is dilated. Image quality is technically difficult. ASSESSMENT AND PLAN PROBLEM LIST: Patient Active Problem List Diagnosis Acute hypoxic respiratory failure (HCC) Immunosuppression (HCC) Hypertension History of renal transplant Diabetes mellitus (HCC) Bladder cancer (HCC) DENIZ (acute kidney injury) (HCC) NSTEMI (non-ST elevated myocardial infarction) (HCC) Elevated d-dimer Leukocytosis Shortness of breath Pneumonia of both lungs due to infectious organism Biventricular congestive heart failure (HCC) Aortic atherosclerosis (HCC) Hypoglycemia Pericardial effusion Pulmonary hypertension (HCC) Cor pulmonale (HCC) Metabolic acidosis Arterial hypotension ASSESSMENT: Acute hypoxic respiratory failure, requiring high flow nasal cannula Suspected pulmonary embolism (elevated D-dimer, recent VQ scan was negative) Moderate pulmonary hypertension, ? CTEPH Cor pulmonale; acute versus acute on chronic Right peroneal vein DVT Positive bubble study with agitated saline, suggestive intra-atrial stenting Mild pericardial effusion Acute kidney injury History of renal transplant; on immunosuppressive therapy Recent hospitalization at [facility] for pneumonia Essential hypertension Diabetes mellitus Obesity Suspected sleep apnea Bladder cancer PLAN: I personally interviewed/examined the patient; reviewed interval history, interpreted all available radiographic and laboratory data at the time of service. Patient is hemodynamically stable Currently saturating well on supplemental oxygen with nasal cannula @ O2 Flow Rate (L/min) Av.7 L/min Min: 35 L/min Max: 40 L/min Continue supplemental oxygen to keep oxygen saturation >90% Will recommend nocturnal and as needed BiPAP Planned for mechanical thrombectomy this afternoon Cardiology planning for right heart cath Continue heparin for anticoagulation Encourage incentive spirometry/Acapella Maintain bronchopulmonary hygiene Aspiration precautions Bronchodilators Antimicrobials reviewed; will recommend monitoring her off antimicrobial therapy Follow-up culture results IV fluid per nephrology recommendations Monitor intake/output and electrolytes closely Physical/occupational therapy It was my pleasure to evaluate Ja Tavera today. I would like to thank you for allowing me to participate in the care of this patient. Please feel free to call with any further questions or concerns. We will continue to follow. Tono Marquez MD Pulmonary and Critical Care Medicine 11/10/2023, 10:28 AM This note is created with the assistance of a speech recognition program. While intending to generate a document that actually reflects the content of the visit, the document can still have some errors including those of syntax and sound-alike substitutions which may escape proof reading. It such instances, actual meaning can be extrapolated by contextual diversion. Images from the original note were not included. Division of Vascular Surgery Progress Note Name: Ja Tavera Overnight Events: Fever of 38.0 C at 0300 Hospital Summary Patient is a 63-year-old woman who was transferred to [facility] on 11/07 from OSH with shortness of breath. She was discharged from [facility] on 10/22 after 5-day hospital stay where workup for atypic infection was negative. During her stay she received heparin, azithromycin, rocephin, and was discharged with cefpodoxime. VQ scan was negative. On 11/08, the patient was on 15 L HFNC, saturating at 92-94%, and had dyspnea on exertion. She also had DVTs in her right lower leg, bladder cancer, and evidence of right heart strain. No CT PE was done due to her poor renal function. Based on her presentation, a pulmonary embolism is highly likely in this patient. Dr. Ghosh spoke with the patient about a mechanical thrombectomy, which is planned for later today. Pt saturating 89-91%on 20L HFNC. Pt is normocardic. Subjective: The patient is doing well with no complaints overnight. She denies chest pain, abdominal pain, right calf pain, or shortness of breath. Physical Exam: Vitals: BP (!) 85/67 Pulse 74 Temp 97.9 F (36.6 C) (Temporal) Resp 22 Ht 1.676 m (5' 6 ) Wt 76.8 kg (169 lb 5 oz) SpO2 93% BMI 27.33 kg/m Physical Exam Constitutional: General: She is not in acute distress. Appearance: She is not toxic-appearing. HENT: Head: Normocephalic and atraumatic. Cardiovascular: Rate and Rhythm: Normal rate. Pulses: Normal pulses. Pulmonary: Comments: 20 L on HFNC Abdominal: Palpations: Abdomen is soft. Tenderness: There is no abdominal tenderness. Neurological: Mental Status: She is alert. Psychiatric: Mood and Affect: Mood normal. Behavior: Behavior normal. Imaging/Labs: Echo (TTE) complete (PRN contrast/bubble/strain/3D) Addendum Date: 11/09/2023 Left Ventricle: Preserved left ventricular systolic function. EF by visual approximation is 50%. Left ventricle size is normal. Severely increased wall thickness. Septal flattening in systole consistent with right ventricular pressure overload. Normal wall motion. Normal diastolic function. Right Ventricle: Right ventricle is severely dilated. Severely reduced systolic function. TAPSE is abnormal. TAPSE is 1.1 cm. Findings consistent with Summers's sign. Consider Pulm Embolism Rule Out if not done. Right Ventricle: Right ventricle is severely dilated. Severely reduced systolic function. TAPSE is abnormal. TAPSE is 1.1 cm. Findings consistent with Summers's sign. Aortic Valve: Trileaflet valve. Thickened cusps. Mitral Valve: Trace regurgitation. Tricuspid Valve: Moderate regurgitation. Moderately elevated RVSP, consistent with moderate pulmonary hypertension. The estimated RVSP is 59 mmHg. Interatrial Septum: Grade II Positive (10 to 20 bubbles). Agitated saline study was positive without provocation. Right Atrium: Right atrium is dilated. Pericardium: Trivial circumferential pericardial effusion present. IVC/SVC: IVC diameter is greater than 21 mm and decreases greater than 50% during inspiration; therefore the estimated right atrial pressure is intermediate (~8 mmHg). IVC is dilated. Image quality is technically difficult. XR CHEST PORTABLE Result Date: 11/09/2023 No acute cardiopulmonary disease. CT CHEST WO CONTRAST Result Date: 11/09/2023 1. Pericardial effusion as described above. Maximal thickness of pericardial effusion is 1.38 cm. 2. COPD. 3. Minimal scattered fibrotic changes in the lungs as described above. No confluent pneumonia, confluent pulmonary atelectasis or pleural effusions. 4. Atrophic changes in the pancreas. 5. Markedly atrophic left kidney which is not completely visualized. Right kidney not visualized. Assessment/Plan: Thrombectomy with Penumbra with Dr. Ghosh planned this afternoon, 11/09 Continue heparin gtt NPO Post-op check [facility] [place] O: C: Email: [email or web address] Images from the original note were not included. [facility] Occupational Therapy Not Seen Note DATE: 11/10/2023 NAME: Ja Tavera : 1960 Patient not seen this date for Occupational Therapy due to: Surgery/Procedure: THROMBECTOMY MECHANICAL PERCUTANEOUS OF THE PULMONARY ARTERY Next Scheduled Treatment: Ck 11/10 Images from the original note were not included. Physical Therapy Physical Therapy Cancel Note DATE: 11/09/2023 NAME: Ja Tavera : 1960 Patient not seen this date for Physical Therapy due to: Patient is not appropriate for PT evaluation/treatment at this time d/t discussed with RN. Pt on hi pramod and desaturates easily. Pt to get V/Q scan later today. RN requesting holding PT at this time. Ck 11/09 Images from the original note were not included. [facility] Office: [phone] Tonny Boyle DO, Henri Martin DO, Jarred Peña DO, Paras Shankar DO, Curtis Sprague MD, Samia Allen MD, Denise Oneal MD, Fatou Robb MD, Juvencio Chacon MD, Melany Sherman MD, Todd Boyle MD, Lashaun Womack DO, Sandy Ma MD, Reilly Miller MD, Brigido Boyle DO, Kaylee Watson MD, Kendell Patterson, DO, Alpa White MD, Venessa Jones MD, Elba Garcias MD, Sandra Turner MD, Jarivs Herbert MD, Netta Wall MD, Sue Spencer MD, William Mcknight MD, Harsh Contreras MD, Dara Mitchell MD, Alejandro Arroyo, DO, Douglas Ware DO, Bora Ashton DO, Maikel Varma MD, Cindy Daley, OFFICE ASSOCIATE, Mireille Jaeger, OFFICE ASSOCIATE, Alejandro Aly, OFFICE ASSOCIATE, Lynn Reyes, [facility], Marilyn Aldana, OFFICE ASSOCIATE, Yessi Choi, OFFICE ASSOCIATE, Magalys Bartlett, OFFICE ASSOCIATE, Saba Skelton, OFFICE ASSOCIATE, Lashell Fall, PA-C, Lizzie Estes, PA-C, Sena Patton, OFFICE ASSOCIATE, Iker Car, OFFICE ASSOCIATE, Estee Cueto, OFFICE ASSOCIATE, Bonnie Bush, OFFICE ASSOCIATE, Carine Kwan, OFFICE ASSOCIATE, Oksana Perez, [employer], Merlene Castro, OFFICE ASSOCIATE, Lilliam Conte, OFFICE ASSOCIATE, Krystal Howard, OFFICE ASSOCIATE [facility] IN-PATIENT SERVICE [facility] Progress Note 11/09/2023 9:04 AM Name: Ja Tavera Acct: [id number] Room: [facility]0419-[facility] Day: 1 Admit Date: 11/08/2023 7:47 PM PCP: No primary care provider on file. Code Status: Full Code Subjective: Anxious appearing on high flow nasal cannula. Has chest pain with inspiration no fevers, chills. Denies any lower extremity edema. Brief History: 61-year-old female presented to the hospital for evaluation of shortness of breath and concerns for pulmonary embolism. Patient was recently discharged from [facility] where she was treated for pneumonia after chest x-ray showed bilateral groundglass opacities. At that time VQ scan was negative for PE. On admission, patient underwent echocardiogram which showed an ejection fraction of 50% with right ventricular dilatation and severely reduced systolic function concerning for Summers sign. She also had moderate tricuspid regurgitation along with moderate pulmonary pretension with RVSP of 59 and an IVC diameter 21 mmHg. Patient was admitted seen by vascular surgery due to concerns for pulm embolism. She does have a history of renal transplant and was seen by nephrology as well Medications: Allergies: Allergies Allergen Reactions Aspirin Other (See Comments) Pt states she is allergic bc she is taking immunosuppressants meds that has a reaction to Asprin Ibuprofen Other (See Comments) Pt states she is allergic bc she is taking immunosuppressants meds that has a reaction to Ibuprofen Plavix [Clopidogrel] Other (See Comments) Pt states she is allergic bc she is taking immunosuppressants meds that has a reaction to plavix Amlodipine Rash Current Meds: Scheduled Meds: sodium chloride flush 5-40 mL IntraVENous 2 times per day insulin lispro 0-8 Units SubCUTAneous TID WC insulin lispro 0-4 Units SubCUTAneous Nightly linezolid 600 mg IntraVENous Q12H piperacillin-tazobactam 3,375 mg IntraVENous Q8H atorvastatin 40 mg Oral Nightly metoprolol tartrate 25 mg Oral BID Continuous Infusions: dextrose 100 mL/hr at 11/09/23 0631 sodium chloride dextrose heparin (PORCINE) Infusion 12 Units/kg/hr (11/08/23 2246) PRN Meds: sodium chloride flush, sodium chloride, ondansetron OR ondansetron, polyethylene glycol, acetaminophen OR acetaminophen, potassium chloride OR potassium alternative oral replacement OR potassium chloride, magnesium sulfate, glucose, dextrose bolus OR dextrose bolus, glucagon (rDNA), dextrose, heparin (porcine), heparin (porcine) Data: Vitals: BP 92/70 Pulse 66 Temp 97.9 F (36.6 C) (Oral) Resp 24 Ht 1.676 m (5' 6 ) Wt 76.8 kg (169 lb 5 oz) SpO2 91% BMI 27.33 kg/m Temp (24hrs), Av.6 F (37 C), Min:97.9 F (36.6 C), Max:98.9 F (37.2 C) Recent Labs 11/09/23 0330 11/09/23 0353 11/09/23 0610 11/09/23 0735 POCGLU 54* 155* 74 68 I/O (24Hr): No intake or output data in the 24 hours ending 11/09/23 0904 Labs: Hematology: Recent Labs 11/08/23205811/09/23438 WBC 11.8* 10.2 RBC 6.16* 5.37* HGB 17.3* 14.9 HCT 54.1* 46.8 MCV 87.8 87.2 MCH 28.1 27.7 MCHC 32.0 31.8 RDW 14.1 14.2 PLT See Reflexed IPF Result See Reflexed IPF Result DDIMER 13.32* -- Chemistry: Recent Labs 11/08/23205811/08/23220411/09/236 11/09/23438 NA 142 -- -- -- K 4.0 -- -- -- CL 111* -- -- -- CO2 16* -- -- -- GLUCOSE 105* -- -- -- BUN 35* -- -- -- CREATININE 2.7* -- -- -- MG -- -- -- 2.0 ANIONGAP 15 -- -- -- LABGLOM 20* -- -- -- CALCIUM 9.9 -- -- -- PROBNP 21,057* -- -- -- TROPHS 192* 197* 192* 184* LACTACIDWB -- 2.9* -- -- Recent Labs 11/08/23200411/08/23204511/08/23205811/09/23 03311/09/23 0353 11/09/23 0439 11/09/23 0610 11/09/23 0735 TSH -- -- -- -- -- 0.03* -- -- AST -- -- 72* -- -- -- -- -- ALT -- -- 100* -- -- -- -- -- ALKPHOS -- -- 86 -- -- -- -- -- BILITOT -- -- 0.7 -- -- -- -- -- POCGLU 63* 116* -- 54* 155* -- 74 68 ABG: Lab Results Component Value Date/Time POCPH 7.458 11/09/2023 06:22 AM POCPCO2 29.6 11/09/2023 06:22 AM POCPO2 84.8 11/09/2023 06:22 AM POCHCO3 21.0 11/09/2023 06:22 AM NBEA 1.7 11/09/2023 06:22 AM [id number] 97.1 11/09/2023 06:22 AM Lab Results Component Value Date/Time SPECIAL R ARM 1ML 11/08/2023 10:05 PM Lab Results Component Value Date/Time CULTURE NO GROWTH <24 HRS 11/08/2023 10:05 PM Radiology: CT CHEST WO CONTRAST Result Date: 11/08/2023 1. Pericardial effusion as described above. Maximal thickness of pericardial effusion is 1.38 cm. 2. COPD. 3. Minimal scattered fibrotic changes in the lungs as described above. No confluent pneumonia, confluent pulmonary atelectasis or pleural effusions. 4. Atrophic changes in the pancreas. 5. Markedly atrophic left kidney which is not completely visualized. Right kidney not visualized. Physical Examination: General appearance: alert, cooperative and uncomfortable appearing female Mental Status: oriented to person, place and time and normal affect Lungs: Diminished breath sounds at the bases bilaterally, normal effort, on high flow nasal cannula Heart: regular rate and rhythm, no murmur Abdomen: soft, nontender, nondistended, normal bowel sounds, no masses, hepatomegaly, splenomegaly Extremities: no edema, redness, tenderness in the calves Skin: no gross lesions, rashes, induration Assessment: Hospital Problems Last Modified POA * (Principal) Acute hypoxic respiratory failure (HCC) 11/08/2023 Yes Immunosuppression ([facility]) 11/08/2023 Yes Hypertension 11/08/2023 Yes History of renal transplant 11/08/2023 Yes Diabetes mellitus (HCC) 11/08/2023 Yes Bladder cancer ([facility]) 11/08/2023 Yes DENIZ (acute kidney injury) ([facility]) 11/08/2023 Yes NSTEMI (non-ST elevated myocardial infarction) ([facility]) 11/08/2023 Yes Elevated d-dimer 11/08/2023 Yes Leukocytosis 11/08/2023 Yes Plan: Acute hypoxemic respiratory failure Concern for Pulmonary embolism with right heart strain Pt was recently discharged from [facility] where she was treated for similar issues . At that time was treated with IV antibiotics and discharged home with cefpodoxime. Had further workup for cryptococcus, histo, q fever because she is immunosuppressed [place] that was negative. She was discharged on 3 liters of oxygen . Today, pro BNP elevated at 25K with troponin 371->[id number]. ECG shows ST depression in 2 and AVF along with t wave inversion in precoridal leads concerning for pulmonary disease. Switch to high intensity heparin gtt, discussed with patient son Esdras and Vascular surgery. IF VQ negative will discuss with other service risk/benefit of CTPE Will stop abx pending clinical progression /workup, continue on Rocephin for now Cardiology consulted plan to repeat echocardiogram Renal transplant Discussed with patient, tells me she is on tacro 0.5 twice daily, everolimus 0.75 twice daily and prednisone 10 mg daily Restart home medications Check VBG-> will adjust fluids pending results. Bladder cancer on IV chemotherapy monthly Outpatient oncology follow Primary Hypertension Hold antihypertensives, blood pressure in the 90s systolic If patient's blood pressure decreases consider hydrocortisone ESRD with renal transplant in 2006 on tacrolimus, everolimus and prednisone Insulin dependent diabetes mellitus type II with hyperglycemia Glargine on hold due to hypoglycemia, continue D5 for now. Can stop if glucose stable. Continue ISS for now Poc achs Abnormal TSH TSH 0.03, T4: 2. Decrease dose of synthroid Medical Decision Making: High Lashaun Womack DO 11/09/2023 9:04 AM documented in this encounter [facility] 11-16-2023 Hospital Discharge instructions William Mcknight MD - 11/16/2023 12:14 PM EDT Please continue to take your medication as prescribed, follow-up with your primary doctor pulmonology and kidney doctor after discharge Needs repeat 2D echo in 3 months and VQ scan within 6 months perPulmonology recommendation documented in this encounter [facility] 11-16-2023 Hospital course Narrative Images from the original note were not included. [facility] Office: [phone] Tonny Boyle DO, Henri Martin DO, Jarred Peña, DO, Paras Shankar, DO, Curtis Sprague MD, Samia Allen MD, Denise Oneal MD, Fatou Robb MD, Juvencio Chacon MD, Melany Sherman MD, Todd Boyle MD, Lashaun Womack DO, Sandy Ma MD, Reilly Miller MD, Brigido Boyle DO, Kaylee Watson MD, Kendell Patterson, DO, Alpa White MD, Venessa Jones MD, Elba Garcias MD, Sandra Turner MD, Jarvis Herbert MD, Netta Wall MD, Sue Spencer MD, William Mcknight MD, Harsh Contreras MD, Dara Mitchell MD, Alejandro Arroyo, DO, Douglas Ware DO, Bora Ashton, DO, Maikel Varma MD, Cindy Daley, OFFICE ASSOCIATE, Mireille Jaeger, OFFICE ASSOCIATE, Alejandro Aly, OFFICE ASSOCIATE, Lynn Reyes, DNP, Marilyn Aldana, OFFICE ASSOCIATE, Yessi Choi, OFFICE ASSOCIATE, Magalys Bartlett, OFFICE ASSOCIATE, Saba Skelton, OFFICE ASSOCIATE, Lashell Fall PAWendieC, Lizzie Estes PAWendieC, Sena Patton, OFFICE ASSOCIATE, Iker Car, OFFICE ASSOCIATE, Estee Cueto, OFFICE ASSOCIATE, Bonnie Bush, OFFICE ASSOCIATE, Carine Kwan, OFFICE ASSOCIATE, Oksana Perez, SUPERVISOR INSULATION, Merlene Castro, OFFICE ASSOCIATE, Lilliam Conte, OFFICE ASSOCIATE, Krystal Howard, OFFICE ASSOCIATE [facility] IN-PATIENT SERVICE [facility] Discharge Summary Patient ID: Ja Tavera : 1960 ACCOUNT: [id number] Patient's PCP: Alejandro Villagran MD Admit Date: 11/08/2023 Discharge Date: 11/16/2023 Length of Stay: 8 Code Status: Full Code Admitting Physician: William Mcknight MD Discharge Physician: William Mcknight MD Active Discharge Diagnoses: Hospital Problem Lists: Principal Problem: Acute hypoxic respiratory failure (HCC) Active Problems: Immunosuppression (HCC) Hypertension History of renal transplant Diabetes mellitus (HCC) Bladder cancer (HCC) DENIZ (acute kidney injury) (HCC) NSTEMI (non-ST elevated myocardial infarction) (HCC) Elevated d-dimer Leukocytosis Shortness of breath Pneumonia of both lungs due to infectious organism Biventricular congestive heart failure (HCC) Aortic atherosclerosis (HCC) Hypoglycemia Pericardial effusion Severe pulmonary hypertension (HCC) Cor pulmonale (HCC) Metabolic acidosis Arterial hypotension Pulmonary embolus (HCC) Debility CKD (chronic kidney disease) stage 4, GFR 15-29 ml/min (HCC) Resolved Problems: * No resolved hospital problems. * Admission Condition: fair Discharged Condition: good Hospital Stay: Hospital Course: 61-year-old female presented to the hospital for evaluation of shortness of breath and concerns for pulmonary embolism. Patient was recently discharged from [facility] where she was treated for pneumonia after chest x-ray showed bilateral groundglass opacities. At that time VQ scan was negative for PE. On admission, patient underwent echocardiogram which showed an ejection fraction of 50% with right ventricular dilatation and severely reduced systolic function concerning for Summers sign. She also had moderate tricuspid regurgitation along with moderate pulmonary pretension with RVSP of 59 and an IVC diameter 21 mmHg. Patient was admitted seen by vascular surgery due to concerns for pulm embolism. She does have a history of renal transplant and was seen by nephrology as well was on heparin then was switch to oral Eliquis, vascular and pulmonology is following appreciate input, ,S/P thrombectomy of pulmonary artery 11/10/2023 , continue IV ceftriaxone due to concern of pneumonia may contribute to her symptoms, completed treatment 11-15-2023, a Patient continued to feel better she weaned off to 3 L nasal cannula, she was seen by PT OT who recommended that patient can be discharged safely home, discussed with pulmonology okay for discharge, discussed with the caseworker intake today and patient will be discharged home today in stable condition Due to history of renal transplant she was seen by nephrology nephrology recommendation to continue with oral sodium bicarb continue same dose ofeverolimus tacrolimus and prednisone can be discharged home and outpatient follow-up Acute hypoxic respiratory failure requiring oxygen supplement, continue with oxygen supplement wean off as tolerated ,symptoms could be due to pneumonia versus pulmonary embolism, 2D echo with Summers sign concerning for PE, was on heparin then was switch to oral Eliquis, vascular and pulmonology is following appreciate input, ,S/P thrombectomy of pulmonary artery 11/10/2023 , was on IV ceftriaxone end of treatment 11-15-2023, appreciate ID input Hypotension patient blood pressure remains soft however maps remained above 65 Acute kidney injury on chronic kidney disease continue to monitor BMP, avoid nephrotoxic agent, nephrology is following appreciate input S/p renal transplant on tacrolimus everolimus and prednisone continue Diabetes continue with insulin sliding scale diabetic diet and glucose check Bladder cancer on IV chemotherapy, patient to follow-up with oncology Abnormal TSH TSH 0.03, T4: 2. Decrease dose of synthroid Significant therapeutic interventions: as above Significant Diagnostic Studies: Labs / Micro: CBC: Lab Results Component Value Date/Time WBC 9.6 11/12/2023 05:49 AM RBC 3.91 11/12/2023 05:49 AM HGB 11.0 11/12/2023 05:49 AM HCT 36.3 11/12/2023 05:49 AM MCV 92.8 11/12/2023 05:49 AM MCH 28.1 11/12/2023 05:49 AM MCHC 30.3 11/12/2023 05:49 AM RDW 13.8 11/12/2023 05:49 AM PLT 89 11/12/2023 05:49 AM BMP: Lab Results Component Value Date/Time GLUCOSE 150 11/16/2023 02:45 AM NA 138 11/16/2023 02:45 AM K 3.9 11/16/2023 02:45 AM CL 108 11/16/2023 02:45 AM CO2 18 11/16/2023 02:45 AM ANIONGAP 12 11/16/2023 02:45 AM BUN 32 11/16/2023 02:45 AM CREATININE 2.5 11/16/2023 02:45 AM CALCIUM 9.0 11/16/2023 02:45 AM LABGLOM 21 11/16/2023 02:45 AM Radiology: No results found. Consultations: Consults: Final Specialist Recommendations/Findings: IP CONSULT TO HEART FAILURE NURSE/COORDINATOR IP CONSULT TO DIETITIAN IP CONSULT TO NEPHROLOGY IP CONSULT TO INFECTIOUS DISEASES IP CONSULT TO CARDIOLOGY IP CONSULT TO PULMONOLOGY IP CONSULT TO VASCULAR ACCESS TEAM IP CONSULT TO VASCULAR SURGERY IP CONSULT TO VASCULAR ACCESS TEAM IP CONSULT TO PHYSICAL MEDICINE REHAB The patient was seen and examined on day of discharge and this discharge summary is in conjunction with any daily progress note from day of discharge. Discharge plan: Disposition: Home Physician Follow Up: Zechariah Beatty DO [address] [place] [id number] Follow up in 2 week(s) Steven Jones MD [address] [place] [address] Follow up in 6 week(s) Lung doctor, office will call to schedule Requiring Further Evaluation/Follow Up POST HOSPITALIZATION/Incidental Findings: Needs repeat 2D echo in 3 months and VQ scan within 6 months Diet: regular diet Activity: As tolerated Instructions to Patient: Please continue to take your medication as prescribed, follow-up with your primary doctor pulmonology and kidney doctor after discharge Needs repeat 2D echo in 3 months and VQ scan within 6 months perPulmonology recommendation Discharge Medications: Medication List START taking these medications apixaban 5 MG Tabs tablet Commonly known as: ELIQUIS Take 2 tablets by mouth 2 times daily for 3 days, THEN 1 tablet 2 times daily. Start taking on: November 16, 2023 sodium bicarbonate 650 MG tablet Take 1 tablet by mouth 2 times daily CHANGE how you take these medications levothyroxine 125 MCG tablet Commonly known as: SYNTHROID Take 1 tablet by mouth Daily Start taking on: November 17, 2023 What changed: medication strength how much to take CONTINUE taking these medications atorvastatin 40 MG tablet Commonly known as: LIPITOR bimatoprost 0.01 % Soln ophthalmic drops Commonly known as: LUMIGAN Claritin 10 MG capsule Generic drug: loratadine cycloSPORINE 0.05 % ophthalmic emulsion Commonly known as: RESTASIS Everolimus 0.75 MG Tabs famotidine 20 MG tablet Commonly known as: PEPCID febuxostat 40 MG Tabs tablet Commonly known as: ULORIC InPen [id number] Kurt Generic drug: Injection Device for Insulin magnesium oxide 400 (240 Mg) MG tablet Commonly known as: MAG-OX metoprolol tartrate 25 MG tablet Commonly known as: LOPRESSOR omega-3 fish oil 1000 MG Caps polyethyl glycol-propyl glycol 0.4-0.3 % 0.4-0.3 % ophthalmic solution Commonly known as: SYSTANE predniSONE 10 MG tablet Commonly known as: DELTASONE tacrolimus 5 MG capsule Commonly known as: PROGRAF therapeutic multivitamin-minerals tablet Toucarter Max SoloStar 300 UNIT/ML Sopn Generic drug: Insulin Glargine (2 Unit Dial) Tradjenta 5 MG tablet Generic drug: linagliptin Where to Get Your Medications These medications were sent to [id number] - [place], [place] - [address] [facility] [address] - [phone] - F [phone] [address] [facility] [id number] apixaban 5 MG Tabs tablet levothyroxine 125 MCG tablet sodium bicarbonate 650 MG tablet No discharge procedures on file. Time Spent on discharge is 33 mins in patient examination, evaluation, counseling as well as medication reconciliation, prescriptions for required medications, discharge plan and follow up. Electronically signed by William Mcknight MD 11/16/2023 12:13 PM Thank you Alejandro Toney MD for the opportunity to be involved in this patient's care. documented in this encounter [facility] 11-03-2023 Note 11/03/2023 Subjective Patient ID: Ja Tavera is a 63 y.o. female who presents for No chief complaint on file.. HPI: This is a 63 y.o.-year-old female with PMH of renal transplant since 2006 on immunosuppressant initially admitted to [facility] on 10/19/2023 for shortness of breath that has gotten worse over the past 6 months. Upon presentation, work up showed leukocytosis with WBC of 11.6, x-ray showed consolidation and a nodular focus within the right lateral lower lung. CT chest without contrast showed subtle groundglass changes in the lingula likely infectious bronchiolitis, no large cavitary lesions. Rapid COVID was negative. ID was consulted and patient underwent extensive infectious work up including cryptococcal antigen negative. Fungitell is indeterminate low level at 70. LDH, Histoplasma antibody, and Q-Fever is negative. Patient received a course of cefepime and azithromycin inpatient and discharged on Cefpodoxime for total of 7 days antimicrobial therapy. Patient is presenting to ID clinic for a follow-up visit.Patient presents with her . She completed oral cefpodoxime without side-effects. Patient states symptoms have improved, however shortness of breath on exertion has not resolved. Patient is wearing 3L 02 at 93%. Patient states she has followed up with PCP. Patient states she has never been seen by a pulmonology however would have her PCP refer her to a pulmonology closer to home. States she lives 1 hour away. Patient denies fever, chills. Past Medical History: Past Medical History: Diagnosis Date Bladder cancer (CMS/HCC) Diabetes mellitus (CMS/HCC) Hypercholesteremia Hypertension Patient Active Problem List Diagnosis Malignant tumor of urinary bladder (CMS/HCC) Carpal tunnel syndrome Essential hypertension History of renal transplant Increased infection risk status post immunosuppressive therapy Prediabetes Swelling of finger joint Encounter for follow-up surveillance of bladder cancer Numbness and tingling sensation of skin Aftercare following organ transplant SOB (shortness of breath) DENIZ (acute kidney injury) (CMS/HCC) Bacteremia Leukocytosis Dyspnea on exertion Suspected pulmonary embolism Pneumonia Bronchiolitis Hypoxia Past Surgical History: Past Surgical History: Procedure Laterality Date COLONOSCOPY NEPHRECTOMY THYROID SURGERY TONSILLECTOMY Medications: Current Outpatient Medications on File Prior to Visit Medication Sig Dispense Refill alendronate (Fosamax) 35 mg tablet Take 1 tablet by mouth every 7 (seven) days. On Sundays atorvastatin (Lipitor) 40 mg tablet Take 1 tablet by mouth at bedtime. BD Ultra-Fine Short Pen Needle 31 gauge x 5/16 needle in the morning and at bedtime. as directed bimatoprost (Lumigan) 0.01 % ophthalmic solution Administer 1 drop into both eyes at bedtime. calcium citrate-vitamin D3 (Citracal+D) 315 mg-5 mcg (200 unit) tablet Take 1 tablet by mouth in the morning. cycloSPORINE (Restasis) 0.05 % ophthalmic emulsion Administer 1 drop into both eyes every 12 (twelve) hours. everolimus (Zortress) 0.75 mg tablet TAKE 1 TABLET BY MOUTH TWICE DAILY 60 tablet 11 famotidine (Pepcid) 20 mg tablet Take 1 tablet by mouth in the morning. febuxostat (Uloric) 40 mg tablet Take 1 tablet by mouth in the morning. insulin aspart (NovoLOG U-100 Insulin aspart) 100 unit/mL injection vial Inject 10 Units under the skin before evening meal. levothyroxine (Synthroid, Levoxyl) 150 mcg tablet Take 150 mcg by mouth in the morning. 150 mcg linaGLIPtin (Tradjenta) 5 mg tablet Take 5 mg by mouth in the morning. magnesium oxide (Mag-Ox) 400 mg (241.3 mg magnesium) tablet Take 1 tablet by mouth in the morning. metoprolol tartrate (Lopressor) 25 mg tablet Take 1 tablet by mouth two times daily. multivitamin (Theragran-M) 9 mg iron-400 mcg tablet Take 1 tablet by mouth in the morning. omega-3 fatty acids-fish oil 300-1,000 mg capsule Take by mouth two times daily. LatinComics Verio test strips strip in the morning, afternoon, and at bedtime. for testing oxybutynin (Ditropan) 5 mg tablet Take 1 tablet (5 mg) by mouth three times daily. 270 tablet 3 peg 400-propylene glycol (Systane, propylene glycoL,) 0.4-0.3 % drops Administer 1 drop into both eyes if needed (for dry eyes). predniSONE (Deltasone) 10 mg tablet Take 1 tablet by mouth in the morning. tacrolimus (Prograf) 0.5 mg capsule Take 1 capsule (0.5 mg) by mouth in the morning and at bedtime. Z94.0, Total daily dosage 1 mg 60 capsule 11 Toujeo Max U-300 SoloStar 300 unit/mL (3 mL) injection Inject 56 Units under the skin in the morning. No current facility-administered medications on file prior to visit. Social History: Social History Socioeconomic History Marital status: Spouse name: None Number of children: None Years of education: None Highest education level: None Occupational History None Tobacco Use Sm (more content not included)... [facility] 10-23-2023 Note Histoplasma antibodi es negative. Coxiella serologies are negative as well [facility] 10-23-2023 Note 10/23/23 1300 Home Oxygen Therapy Evaluation Pulse Oximetry on room air at Rest 92 Pulse Ox on room air while walking 84 Pulse Ox on O2 with nasal cannula while walking 93 Pulse Ox on O2 at rest if > 4 lpm needed. 3 Patient Qualification for home oxygen Qualifies $ Pulse Oximetry Multiple [facility] 10-23-2023 Note Hospital Medicine Discharge Summary Final Discharge Diagnosis: Acute hypoxic respiratory failure 2/2 likely MICA infectious bronchiolitis indeterminant [id number] Admission Diagnosis: Shortness of breath [R06.02] Bronchiolitis [J21.9] SOB (shortness of breath) [R06.02] Hypoxia [R09.02] Hospital course: Ja Tavera is an 63 y.o. female who presented from home on 10/19 for a chief complaint of SOB. Patient has past medical history including bladder cancer on IV chemo monthly, HTN, renal transplant (2006) on Tacrolimus, everolimus, and prednisone, and insulin-dependent type 2 diabetes. Patient's most recent chemotherapy infusion 3 days ago. Patient presented to [facility] ED per direction of her PCP for evaluation of shortness of breath. Patient reported she has had shortness of breath over the past year that has worsened with exertion over the past months. She reports she had a PCP appointment today who encouraged her to come to the ED to rule out blood clots, pneumonia, and asthma. Patient reported to ED provider that her PCP wanted her admitted for these workups. Patient denied any other symptoms, including chest pain, N/V/D/C, abdominal pain, dysuria, hematuria. Patient denies sputum production, but had intermittent cough. In the ED, patient was hypoxic with exertion, ambulation, with O2 saturation at 88-91% O2 on RA. Patient achieved >90% saturation with 2 L NC, and no hypoxia seen at rest. ECG with normal sinus rhythm. XR chest showed new consolidation in lingula and also a nodular focus within the right lateral lower lung juxtapleural measuring approximately 12 mm. Neoplasm is not excluded. CT chest without IV contrast showed subtle groundglass changes within the lingula, likely infectious bronchiolitis. Based on the peripheral distribution COVID-pneumonia not excluded. Laboratory workup significant for elevated D-dimer 11.36, DENIZ with BUN 41, creatinine 2.69, EGFR 19.4. Patient noted to be hyperglycemic with a blood glucose of 200. APTT 23.0, BNP 178. Patient with leukocytosis AEB auto WBC 11.63. Rapid COVID negative. Patient was started on IV Rocephin and IV azithromycin for infectious bronchiolitis. Admitted for V/Q scan in the AM as patient could not receive CTA to r/o PE due to history of renal transplant. Patient was also started on IV heparin infusion, and admitted for further evaluation. Infectious Bronchiolitis: During admission, patient remained hemodynamically stable, on 2L NC throughout visit. Nephrology was consulted to manage immunosuppressive medications, and Everolimus was held in the setting of pneumonia. VQ scan was negative, and IV heparin was discontinued on 10/19. Patient completed 3 days of IV azithromycin and Rocephin. Due to immunocompromised status, nephrology also ordered opportunistic fungal infection panel, which was indeterminate for [id number], negative for cryptococcus. Infectious disease was consulted to determine if further testing was needed, or aspergillus antigen was necessary prior to discharge. DENIZ on CKD stage IV: patient Cr was initially elevated from baseline (2.1-2.4) on admission, and improved through visit on IV fluids. Patient also made adequate urine. Cr returned to baseline at the end of admission. Hypertension: Patient also experienced elevated blood pressures >150s systolic on home metoprolol. Recommended to follow up outpatient with PCP to adjust blood pressure medications. patient was evaluated by infectious disease and recommended blood drawn for histo antibody as well as Q fever IgM and IgG and patient can be discharged with follow-up in ID clinic in about 1 week. patient to continue cefpodoxime orally for 3 more days Consultations During Admission: Infectious Disease Dear Dr. Tyshawn MD, Ja is advised to follow up with you within 1-2 weeks. Items to follow up in ambulatory setting: Histo antibody as well as Q fever IgM and IgG Follow-up with: Infectious Disease Scheduled appointments: Future Appointments Date Time Provider Department Center 11/13/2023 9:00 AM [facility] ONC NURSE [facility] ONC [facility] 11/13/2023 9:30 AM [facility] CHAIR 5 [facility] INF [facility] 11/20/2023 11:30 AM Samy White MD [facility] URO [place] Fl 12/11/2023 9:00 AM [facility] ON[facility] NURSE [facility] ONC [facility] 12/11/2023 9:30 AM [facility] CHAIR 2 [facility] INF [facility] 01/08/2024 9:00 AM [facility] ON[facility] NURSE [facility] ONC [facility] 01/08/2024 9:30 AM [facility] CHAIR 2 [facility] INF [facility] Your medication list START taking these medications Instructions Last Dose Given Next Dose Due cefpodoxime 200 mg tablet Commonly known as: Vantin Take 1 tablet (200 mg) by mouth two times daily for 3 days. CHANGE how you take these medications Instructions Last Dose Given Next Dose Due oxybutynin 5 mg tablet Commonly known as: Ditropan What changed: when to take this reasons to take this Take 1 tablet (5 mg) by mouth three times daily. CONTINUE taking these medications Instructions Last Dose Given Next Dose Due alendronate (more content not included)... [facility] 10-23-2023 Note Nephrology Progress Note Patient : Ja Tavera; 63 y.o. Location: [address] [place] [address] Attending: Kasandra Fernández MD Admit Date: 10/19/2023 Hospital Day: 4 Reason for Consult: Hx renal transplant, management of graft function, immunosuppressants Subjective: History of present illness: Ja Tavera is a 63 y.o. female admitted for acute hypoxic respiratory failure secondary to infectious bronchiolitis. She has a H signficant for bladder cancer on monthly chemotherapy with gemcitabine and docetaxel infusion, renal transplant in 2006 on Zortress 0.75 mg, Prograf 0.5 mg, Prednisone 10 mg. Patient presented to [facility] ED at the direction of her PCP for SpO2 readings in the 80s. Patient also endorses shortness of breath of around 2 weeks duration. In the ED patient was hemodynamically stable, afebrile, in no acute distress. Patient denied n/v/d, cough. O2 improved to mid 90s on administration of 2L NC. Labs significant for leukocytosis at 11.3, Cr 2.69 (at baseline), BUN 41, eGFR 19. Chest x-ray showed new lingular consolidation and new right lower lobe juxtapleural nodular focus measuring approximately 12 mm. Follow-up chest CT significant for ground glass appearance of the lingula concerning for infectious bronchiolitis. Patient was started on IV Rocephin and azithromycin. Nephrology team consulted given patient's hx of renal transplant. Interval history: 10/23/2023 This morning patient seen and examined at bedside. She is comfortable in no acute distress. Denies fever, chills, n/v/d. Serum b-D-glucan levels returned indeterminate range, given patient's immunocompromised state will consult infectious disease for further workup. Graft function stable with Cr uptrending slightly to 2.40 today, baseline appears to be 2.1-2.4. She reports making adequate amounts of urine. Immunosuppressants therapeutic range. Objective: Input/Output: Intake/Output Summary (Last 24 hours) at 10/23/2023 1022 Last data filed at 10/22/2023 2303 Gross per 24 hour Intake 955 ml Output -- Net 955 ml I/O last 3 completed shifts: In: 1195 (16.1 mL/kg) [P.O.:595; IV Piggyback:600] Out: - (0 mL/kg) Weight: 74.1 kg Vital signs: Temperature: Temp: 36.7 ???C (98 ???F) TMax: Temp (24hrs), Av.3 ???C (97.4 ???F), Min:36.1 ???C (97 ???F), Max:36.7 ???C (98 ???F) Respirations: Resp: 16 Pulse: Heart Rate: 70 BP: BP: 154/84 BP Range: Systolic (24hrs), Av , Min:126 , Max:156 Diastolic (24hrs), Av, Min:73, Max:98 Wt Readings from Last 3 Encounters: 10/22/23 74.1 kg (163 lb 5.8 oz) 10/16/23 74.8 kg (165 lb) 09/18/23 74.4 kg (164 lb) Physical Exam Constitutional: Appearance: Normal appearance. HENT: Head: Normocephalic and atraumatic. Cardiovascular: Rate and Rhythm: Normal rate and regular rhythm. Pulmonary: Effort: Pulmonary effort is normal. No respiratory distress. Breath sounds: Normal breath sounds. No wheezing, rhonchi or rales. Comments: Remains on NC Abdominal: General: Abdomen is flat. Palpations: Abdomen is soft. Musculoskeletal: Cervical back: Neck supple. Right lower leg: No edema. Left lower leg: No edema. Skin: General: Skin is warm and dry. Neurological: Mental Status: She is alert. Mental status is at baseline. Current Medications: Scheduled Meds: [START ON 10/25/2023] alendronate, 35 mg, oral, q7 days atorvastatin, 40 mg, oral, Nightly carvedilol, 12.5 mg, oral, BID with meals cefTRIAXone, 1 g, intravenous, q24h [Held by provider] everolimus, 0.75 mg, oral, BID famotidine, 20 mg, oral, Daily febuxostat, 40 mg, oral, Daily insulin lispro, 0-5 Units, subcutaneous, TID with meals And insulin lispro, 0-4 Units, subcutaneous, Nightly levothyroxine, 150 mcg, oral, Daily magnesium oxide, 400 mg, oral, Daily magnesium sulfate, 1 g, intravenous, q1h predniSONE, 10 mg, oral, Daily sodium bicarbonate, 650 mg, oral, BID tacrolimus, 0.5 mg, oral, BID BETA Continuous Infusions: Oxygen Therapy, PRN Meds: PRN medications: acetaminophen, glucose OR dextrose 50 % in water (D50W), melatonin, ondansetron ODT OR ondansetron, oxybutynin, Oxygen Therapy, sennosides-docusate sodium Outpatient Medications: Medication Documentation Review Audit Reviewed by Taylor Du, JacquiD, BCPS (Pharmacist) on 10/20/23 at 0958 Medication Order Taking? Sig Documenting Provider Last Dose Status alendronate (Fosamax) 35 mg tablet [id number] No Take 1 tablet by mouth every 7 (seven) days. On Sundays Historical Provider, Past Week Active atorvastatin (Lipitor) 40 mg tablet [id number] Take 1 tablet by mouth at bedtime. Historical Provider, Active BD Ultra-Fine Short Pen Needle 31 gauge x 5/16 needle [id number] in the morning and at bedtime. as directed Historical Provider, Active bimatoprost (Lumigan) 0.01 % ophthalmic solution [id number] Administer 1 drop into both eyes at bedtime. Historical Provider, Active calcium citrate-vitamin D3 (Ci (more content not included)... [facility] 10-23-2023 Note Hospital Medicine Daily Progress Note - 10/23/2023 10:16 AM; Room: [address] [place] [address] Admission: 10/19/2023 6:19 PM; Length of stay: 4 days THE HOSPITALIST TEAM PREFERS TO USE avocad[employer]ore CHAT FOR COMMUNICATION 7AM-7PM. IF I DO NOT RESPOND WITHIN 15 MINUTES, PLEASE PAGE ME/CALL THROUGH THE PRESS OPERATOR APPRENTICE. FROM 7PM-7AM, PLEASE PAGE [phone](COVR) Code Status: Full Code Barriers to Discharge: SOB Expected Discharge Date: Discharge Destination: home Overview Patient is seen for evaluation and management of SOB. Subjective Patient seen and examined at bedside. Patient walked around yesterday and felt SOB after three rounds of walking in the room . Patient endorses sleeping well at night and feeling less short of breath. [id number] indeterminate, aspergillus pending, ID consulted for recommendations prior to discharge. Physical Exam Visit Vitals BP 154/84 Pulse 70 Temp 36.7 ???C (98 ???F) (Oral) Resp 16 Intake/Output Summary (Last 24 hours) at 10/23/2023 1016 Last data filed at 10/22/2023 2303 Gross per 24 hour Intake 955 ml Output -- Net 955 ml Physical Exam Constitutional: General: She is not in acute distress. Appearance: She is not ill-appearing. Cardiovascular: Rate and Rhythm: Normal rate and regular rhythm. Pulses: Normal pulses. Heart sounds: Normal heart sounds. No murmur heard. Pulmonary: Effort: Pulmonary effort is normal. No respiratory distress. Breath sounds: Normal breath sounds. No rhonchi. Chest: Chest wall: No tenderness. Abdominal: General: There is no distension. Tenderness: There is no abdominal tenderness. There is no guarding. Musculoskeletal: General: No swelling. Right lower leg: No edema. Left lower leg: No edema. Estimated body mass index is 25.59 kg/m??? as calculated from the following: Height as of this encounter: 1.702 m (5' 7 ). Weight as of this encounter: 74.1 kg (163 lb 5.8 oz). Active Inpatient Problems Principal Problem: SOB (shortness of breath) Active Problems: Malignant tumor of urinary bladder (CMS/HCC) Increased infection risk status post immunosuppressive therapy Prediabetes DENIZ (acute kidney injury) (CMS/HCC) Bacteremia Leukocytosis Dyspnea on exertion Suspected pulmonary embolism Pneumonia Bronchiolitis Hypoxia Assessment and Plan Shortness of Breath Infectious Bronchiolitis Elevated D-Dimer -CXR 10/18 showed consolidation in lingula, CT chest w/o contrast showed groundglass changes consistent with infectious bronchiolitis -VQ scan 10/19 negative -Leukocytosis on presentation, resolved -Rapid COVID negative -Continue IV Rocephin, patient completed 3 days of IV azithromycin -heparin discontinued Malignant tumor of urinary bladder -Patient receives monthly IV chemo treatments, most recent treatment 3 months ago -Cystoscopy on June 2023 showed no obvious tumors History of renal transplant 2006 DENIZ on CKD stage IV, baseline Cr 2.4 -Cr at baseline -Patient currently on everolimus, tacrolimus, and prednisone -Nephrology consulted to manage immunosuppressive medications in setting of infection -[id number] indeterminate, awaiting aspergillus antigen pending -ID consulted, appreciate recommendations and clear for discharge Hypomagnesemia -1.8 -Replace as needed Type 2 Diabetes, insulin-dependent -Diagnosed in 2022 -patient currently taking long-acting insulin and Tujeo VTE Prophylaxis: Mechanical compression Scheduled Meds [START ON 10/25/2023] alendronate, 35 mg, oral, q7 days atorvastatin, 40 mg, oral, Nightly carvedilol, 12.5 mg, oral, BID with meals cefTRIAXone, 1 g, intravenous, q24h [Held by provider] everolimus, 0.75 mg, oral, BID famotidine, 20 mg, oral, Daily febuxostat, 40 mg, oral, Daily insulin lispro, 0-5 Units, subcutaneous, TID with meals And insulin lispro, 0-4 Units, subcutaneous, Nightly levothyroxine, 150 mcg, oral, Daily magnesium oxide, 400 mg, oral, Daily magnesium sulfate, 1 g, intravenous, q1h predniSONE, 10 mg, oral, Daily sodium bicarbonate, 650 mg, oral, BID tacrolimus, 0.5 mg, oral, BID BETA Oxygen Therapy, Pertinent Investigations Hematology: Results from last 7 days Lab Units 10/22/23 0359 10/20/23 03510/19/23203610/19/23 1925 WBC AUTO 10*3/uL 10.33 10.27 < > 11.63* HEMOGLOBIN g/dL 14.6 14.3 < > 16.4* HEMATOCRIT % 44.7 44.9 < > 49.8* MCV fL 86.0 86.2 < > 84.1 PLATELETS AUTO 10*3/uL 159 169 < > 174 INR -- -- -- 0.94 < > = values in this interval not displayed. Chemistry: Results from last 7 days Lab Units 10/23/23 0520 10/22/23 03510/21/23 0506 SODIUM mmol/L 139 138 141 POTASSIUM mmol/L 4.2 3.9 4.1 CHLORIDE mmol/L 109* 109* 111* CO2 mmol/L 22 20* 22 BUN mg/dL 41* 41* 37* CREATININE mg/dL 2.40* 2.28* 2.59* GLUCOSE mg/dL 116* 135* 76 MAGNESIUM mg/dL 1.8* -- -- CALCIUM mg/dL 8.5* 9.1 9.1 PHOSPHORUS mg/dL 4.0 -- -- No lab exists for component: AFIO2 , APHT , APCOT , APOT (more content not included)... [facility] 10-22-2023 Note Nephrology Progress Note Patient : Ja Tavera; 63 y.o. [facility]: Kasandra Fernández MD Admit Date: 10/19/2023 Hospital Day: 3 Reason for Consult: Hx renal transplant, management of graft function, immunosuppressants Subjective: History of present illness: Ja Tavera is a 63 y.o. female admitted for acute hypoxic respiratory failure secondary to infectious bronchiolitis. She has a H signficant for bladder cancer on monthly chemotherapy with gemcitabine and docetaxel infusion, renal transplant in 2006 on Zortress 0.75 mg, Prograf 0.5 mg, Prednisone 10 mg. Patient presented to [facility] ED at the direction of her PCP for SpO2 readings in the 80s. Patient also endorses shortness of breath of around 2 weeks duration. In the ED patient was hemodynamically stable, afebrile, in no acute distress. Patient denied n/v/d, cough. O2 improved to mid 90s on administration of 2L NC. Labs significant for leukocytosis at 11.3, Cr 2.69 (at baseline), BUN 41, eGFR 19. Chest x-ray showed new lingular consolidation and new right lower lobe juxtapleural nodular focus measuring approximately 12 mm. Follow-up chest CT significant for ground glass appearance of the lingula concerning for infectious bronchiolitis. Patient was started on IV Rocephin and azithromycin. Nephrology team consulted given patient's hx of renal transplant. Interval history: 10/22/2023 This morning patient seen and examined at bedside. She is comfortable in no acute distress. Denies fever, chills, n/v/d. Graft function continues to improve Cr 2.28 today from 2.59 yesterday, baseline appears to be 2.1-2.4. She reports making adequate amounts of urine. Objective: Input/Output: Intake/Output Summary (Last 24 hours) at 10/22/2023 1143 Last data filed at 10/22/2023 0841 Gross per 24 hour Intake 240 ml Output -- Net 240 ml I/O last 3 completed shifts: In: 300 (4 mL/kg) [IV Piggyback:300] Out: - (0 mL/kg) Weight: 74.1 kg Vital signs: Temperature: Temp: 36.5 ???C (97.7 ???F) TMax: Temp (24hrs), Av.2 ???C (97.2 ???F), Min:35.6 ???C (96.1 ???F), Max:36.9 ???C (98.4 ???F) Respirations: Resp: 15 Pulse: Heart Rate: 68 BP: BP: 148/88 BP Range: Systolic (24hrs), Av , Min:135 , Max:155 Diastolic (24hrs), Av, Min:86, Max:99 Wt Readings from Last 3 Encounters: 10/22/23 74.1 kg (163 lb 5.8 oz) 10/16/23 74.8 kg (165 lb) 09/18/23 74.4 kg (164 lb) Physical Exam HENT: Head: Normocephalic and atraumatic. Cardiovascular: Rate and Rhythm: Normal rate and regular rhythm. Pulmonary: Effort: Pulmonary effort is normal. No respiratory distress. Breath sounds: Normal breath sounds. No wheezing, rhonchi or rales. Abdominal: General: Abdomen is flat. Palpations: Abdomen is soft. Musculoskeletal: Cervical back: Neck supple. Right lower leg: No edema. Left lower leg: No edema. Skin: General: Skin is warm and dry. Neurological: Mental Status: She is alert. Mental status is at baseline. Current Medications: Scheduled Meds: [START ON 10/25/2023] alendronate, 35 mg, oral, q7 days atorvastatin, 40 mg, oral, Nightly azithromycin, 500 mg, intravenous, q24h cefTRIAXone, 1 g, intravenous, q24h [Held by provider] everolimus, 0.75 mg, oral, BID famotidine, 20 mg, oral, Daily febuxostat, 40 mg, oral, Daily insulin lispro, 0-5 Units, subcutaneous, TID with meals And insulin lispro, 0-4 Units, subcutaneous, Nightly levothyroxine, 150 mcg, oral, Daily magnesium oxide, 400 mg, oral, Daily metoprolol tartrate, 25 mg, oral, BID predniSONE, 10 mg, oral, Daily sodium bicarbonate, 650 mg, oral, BID tacrolimus, 0.5 mg, oral, BID BETA Continuous Infusions: Oxygen Therapy, PRN Meds: PRN medications: acetaminophen, glucose OR dextrose 50 % in water (D50W), melatonin, ondansetron ODT OR ondansetron, oxybutynin, Oxygen Therapy, sennosides-docusate sodium Outpatient Medications: Medication Documentation Review Audit Reviewed by Tyalor Du, PharmD, BCPS (Pharmacist) on 10/20/23 at 0958 Medication Order Taking? Sig Documenting Provider Last Dose Status alendronate (Fosamax) 35 mg tablet [id number] No Take 1 tablet by mouth every 7 (seven) days. On Sundays Historical ProviderMD Past Week Active atorvastatin (Lipitor) 40 mg tablet [id number] Take 1 tablet by mouth at bedtime. Historical Provider, Active BD Ultra-Fine Short Pen Needle 31 gauge x 5/16 needle [id number] in the morning and at bedtime. as directed Historical Provider, Active bimatoprost (Lumigan) 0.01 % ophthalmic solution [id number] Administer 1 drop into both eyes at bedtime. Historical Provider, Active calcium citrate-vitamin D3 (Citracal+D) 315 mg-5 mcg (200 unit) tablet [id number] Take 1 tablet by mouth in the morning. Historical ProviderMD Active cycloSPORINE (Restasis) 0.05 % ophthalmic emulsion [id number] Administer 1 drop into both eyes every 12 (twelve) hours. Historical Provider, Active (more content not included)... [facility] 10-22-2023 Note Hospital Medicine Daily Progress Note - 10/22/2023 10:34 AM; Room: [address] [place], [place] [address]- Admission: 10/19/2023 6:19 PM; Length of stay: 3 days THE HOSPITALIST TEAM PREFERS TO USE avoc[employer]ore CHAT FOR COMMUNICATION 7AM-7PM. IF I DO NOT RESPOND WITHIN 15 MINUTES, PLEASE PAGE ME/CALL THROUGH THE PRESS OPERATOR APPRENTICE. FROM 7PM-7AM, PLEASE PAGE [phone](COVR) Code Status: Full Code Barriers to Discharge: SOB Expected Discharge Date: Discharge Destination: home Overview Patient is seen for evaluation and management of SOB. Subjective Patient seen and examined at bedside. Feeling SOB at night, and had difficulty sleeping overnight. No new symptoms. Awaiting aspergillus antigen and neqy-e-heiehz. Physical Exam Visit Vitals BP 148/88 Pulse 61 Temp 36.5 ???C (97.7 ???F) (Oral) Resp 15 No intake or output data in the 24 hours ending 10/22/23 1034 Physical Exam Cardiovascular: Rate and Rhythm: Normal rate and regular rhythm. Pulses: Normal pulses. Heart sounds: Normal heart sounds. No murmur heard. Pulmonary: Effort: Pulmonary effort is normal. No respiratory distress. Breath sounds: Normal breath sounds. No rhonchi. Chest: Chest wall: No tenderness. Abdominal: General: There is no distension. Tenderness: There is no abdominal tenderness. There is no guarding. Musculoskeletal: General: No swelling. Right lower leg: No edema. Left lower leg: No edema. Estimated body mass index is 25.59 kg/m??? as calculated from the following: Height as of this encounter: 1.702 m (5' 7 ). Weight as of this encounter: 74.1 kg (163 lb 5.8 oz). Active Inpatient Problems Principal Problem: SOB (shortness of breath) Active Problems: Malignant tumor of urinary bladder (CMS/HCC) Increased infection risk status post immunosuppressive therapy Prediabetes DENIZ (acute kidney injury) (CMS/HCC) Bacteremia Leukocytosis Dyspnea on exertion Suspected pulmonary embolism Pneumonia Bronchiolitis Hypoxia Assessment and Plan Shortness of Breath Infectious Bronchiolitis Elevated D-Dimer -CXR 10/18 showed consolidation in lingula, CT chest w/o contrast showed groundglass changes consistent with infectious bronchiolitis -VQ scan 10/19 negative -Leukocytosis on presentation, resolved -Rapid COVID negative -Continue IV Rocephin and IV azithromycin -heparin discontinued Malignant tumor of urinary bladder -Patient receives monthly IV chemo treatments, most recent treatment 3 months ago -Cystoscopy on June 2023 showed no obvious tumors History of renal transplant 2006 -Patient currently on everolimus, tacrolimus, and prednisone -Nephrology consulted to manage immunosuppressive medications in setting of infection -Awaiting aspergillus antigen and hfgv-n-nijmco prior to discharge DENZI on CKD stage IV, baseline Cr 2.4 -Cr at baseline 2.28 Hypomagnesemia -1.8 -Replace as needed Type 2 Diabetes, insulin-dependent -Diagnosed in 2022 -patient currently taking long-acting insulin and Tujeo VTE Prophylaxis: IV heparin Scheduled Meds [START ON 10/25/2023] alendronate, 35 mg, oral, q7 days atorvastatin, 40 mg, oral, Nightly azithromycin, 500 mg, intravenous, q24h cefTRIAXone, 1 g, intravenous, q24h [Held by provider] everolimus, 0.75 mg, oral, BID famotidine, 20 mg, oral, Daily febuxostat, 40 mg, oral, Daily insulin lispro, 0-5 Units, subcutaneous, TID with meals And insulin lispro, 0-4 Units, subcutaneous, Nightly levothyroxine, 150 mcg, oral, Daily magnesium oxide, 400 mg, oral, Daily metoprolol tartrate, 25 mg, oral, BID predniSONE, 10 mg, oral, Daily sodium bicarbonate, 650 mg, oral, BID tacrolimus, 0.5 mg, oral, BID BETA Oxygen Therapy, Pertinent Investigations Hematology: Results from last 7 days Lab Units 10/22/23 0359 10/20/23 0354 10/19/23203610/19/23 1925 WBC AUTO 10*3/uL 10.33 10.27 < > 11.63* HEMOGLOBIN g/dL 14.6 14.3 < > 16.4* HEMATOCRIT % 44.7 44.9 < > 49.8* MCV fL 86.0 86.2 < > 84.1 PLATELETS AUTO 10*3/uL 159 169 < > 174 INR -- -- -- 0.94 < > = values in this interval not displayed. Chemistry: Results from last 7 days Lab Units 10/22/23 0359 10/21/23 0506 10/20/23 0240 SODIUM mmol/L 138 141 142 POTASSIUM mmol/L 3.9 4.1 4.1 CHLORIDE mmol/L 109* 111* 112* CO2 mmol/L 20* 22 22 BUN mg/dL 41* 37* 36* CREATININE mg/dL 2.28* 2.59* 2.45* GLUCOSE mg/dL 135* 76 143* CALCIUM mg/dL 9.1 9.1 9.1 No lab exists for component: AFIO2 , APHT , APCOT , APOT , ATCO2 , CK , ALB , IBILI Results from last 7 days Lab Units 10/22/23 0738 10/21/23 2133 10/21/23 1551 10/21/23 1140 10/21/23 0722 10/20/232057 POCT GLUCOSE mg/dL 100 222* 231* 195* 195* 176* Historical Values: (Includes values prior to this admission) Lab Results Component Value Date TSH 0.01 (L) 11/05/2019 T3FREE 3.3 11/05/2019 FREET4 1.51 11/05/2019 HDL 39 08/08/2023 LDL 154 08/08/2023 No results found for: [id number] , IRON , TIBC , C3 , (more content not included)... [facility] 10-21-2023 Note Per hospitalist meet ing likely DC tomorrow. Nephrology following. [facility] 10-21-2023 Note Nephrology Progress Note Patient : Ja Tavera; 63 y.o. Location: [address] [place] [address] Attending: Kasandra Fernández MD Admit Date: 10/19/2023 Hospital Day: 2 Reason for Consult: Hx renal transplant, management of graft function, immunosuppressants Subjective: History of present illness: Ja Tavera is a 63 y.o. female admitted for acute hypoxic respiratory failure secondary to infectious bronchiolitis. She has a H signficant for bladder cancer on monthly chemotherapy with gemcitabine and docetaxel infusion, renal transplant in 2006 on Zortress 0.75 mg, Prograf 0.5 mg, Prednisone 10 mg. Patient presented to [facility] ED at the direction of her PCP for SpO2 readings in the 80s. Patient also endorses shortness of breath of around 2 weeks duration. In the ED patient was hemodynamically stable, afebrile, in no acute distress. Patient denied n/v/d, cough. O2 improved to mid 90s on administration of 2L NC. Labs significant for leukocytosis at 11.3, Cr 2.69 (at baseline), BUN 41, eGFR 19. Chest x-ray showed new lingular consolidation and new right lower lobe juxtapleural nodular focus measuring approximately 12 mm. Follow-up chest CT significant for ground glass appearance of the lingula concerning for infectious bronchiolitis. Patient was started on IV Rocephin and azithromycin. Nephrology team consulted given patient's hx of renal transplant. Interval history: 10/21/2023 This morning patient seen and examined at bedside. She is comfortable in no acute distress. Denies fever, chills, n/v/d. V/Q scan completed yesterday negative for PE. Graft function remains stable Cr 2.59 today decreased from 2.65 on admission baseline appears to be 2.1-2.4. She reports making adequate amounts of urine. Objective: Input/Output: Intake/Output Summary (Last 24 hours) at 10/21/2023 1119 Last data filed at 10/20/2023 2258 Gross per 24 hour Intake 300 ml Output -- Net 300 ml I/O last 3 completed shifts: In: 1600 (21.6 mL/kg) [IV Piggyback:1600] Out: - (0 mL/kg) Weight: 74.2 kg Vital signs: Temperature: Temp: 36.6 ???C (97.8 ???F) TMax: Temp (24hrs), Av.3 ???C (97.3 ???F), Min:35.6 ???C (96.1 ???F), Max:36.7 ???C (98.1 ???F) Respirations: Resp: 17 Pulse: Heart Rate: 68 BP: BP: 158/89 BP Range: Systolic (24hrs), Av , Min:122 , Max:170 Diastolic (24hrs), Av, Min:77, Max:97 Wt Readings from Last 3 Encounters: 10/21/23 74.2 kg (163 lb 9.3 oz) 10/16/23 74.8 kg (165 lb) 09/18/23 74.4 kg (164 lb) Physical Exam HENT: Head: Normocephalic and atraumatic. Cardiovascular: Rate and Rhythm: Normal rate and regular rhythm. Pulmonary: Effort: Pulmonary effort is normal. No respiratory distress. Breath sounds: Normal breath sounds. No wheezing, rhonchi or rales. Abdominal: General: Abdomen is flat. Palpations: Abdomen is soft. Musculoskeletal: Cervical back: Neck supple. Right lower leg: No edema. Left lower leg: No edema. Skin: General: Skin is warm and dry. Neurological: Mental Status: She is alert. Mental status is at baseline. Current Medications: Scheduled Meds: [START ON 10/25/2023] alendronate, 35 mg, oral, q7 days atorvastatin, 40 mg, oral, Nightly azithromycin, 500 mg, intravenous, q24h cefTRIAXone, 1 g, intravenous, q24h [Held by provider] everolimus, 0.75 mg, oral, BID famotidine, 20 mg, oral, Daily febuxostat, 40 mg, oral, Daily insulin lispro, 0-5 Units, subcutaneous, TID with meals And insulin lispro, 0-4 Units, subcutaneous, Nightly kit for prep of [id number], 5.3 millicurie, intravenous, Once in imaging kit prep technetium Tc-99m pentetate, 39.5 millicurie, inhalation, Once in imaging levothyroxine, 150 mcg, oral, Daily magnesium oxide, 400 mg, oral, Daily metoprolol tartrate, 25 mg, oral, BID predniSONE, 10 mg, oral, Daily tacrolimus, 0.5 mg, oral, BID BETA Continuous Infusions: Oxygen Therapy, PRN Meds: PRN medications: acetaminophen, glucose OR dextrose 50 % in water (D50W), melatonin, ondansetron ODT OR ondansetron, oxybutynin, Oxygen Therapy, sennosides-docusate sodium Outpatient Medications: Medication Documentation Review Audit Reviewed by Taylor Du PharmD, BCPS (Pharmacist) on 10/20/23 at 0958 Medication Order Taking? Sig Documenting Provider Last Dose Status alendronate (Fosamax) 35 mg tablet [id number] No Take 1 tablet by mouth every 7 (seven) days. On Sundays Historical ProviderMD Past Week Active atorvastatin (Lipitor) 40 mg tablet [id number] Take 1 tablet by mouth at bedtime. Historical Provider, Active BD Ultra-Fine Short Pen Needle 31 gauge x 5/16 needle [id number] in the morning and at bedtime. as directed Historical Provider, Active bimatoprost (Lumigan) 0.01 % ophthalmic solution [id number] Administer 1 drop into both eyes at bedtime. Historical Provider, Active calcium citrate-vitamin D3 (Citracal+D) 315 mg-5 mcg (200 unit) tablet [id number] Take 1 tablet by mouth in the morni (more content not included)... [facility] 10-21-2023 Note Hospital Medicine Daily Progress Note - 10/21/2023 10:45 AM; Room: [address] [place] [address] Admission: 10/19/2023 6:19 PM; Length of stay: 2 days THE HOSPITALIST TEAM PREFERS TO USE avoc[employer]ore CHAT FOR COMMUNICATION 7AM-7PM. IF I DO NOT RESPOND WITHIN 15 MINUTES, PLEASE PAGE ME/CALL THROUGH THE PRESS OPERATOR APPRENTICE. FROM 7PM-7AM, PLEASE PAGE [phone](COVR) Code Status: Full Code Barriers to Discharge: SOB Expected Discharge Date: Discharge Destination: home Overview Patient is seen for evaluation and management of SOB. Subjective Patient seen and examined at bedside. Endorses she feels less winded when she walks to the bathroom. Denies any new symptoms. Awaiting fungal cultures. Physical Exam Visit Vitals BP 158/89 Pulse 68 Temp 35.9 ???C (96.7 ???F) Resp 17 Intake/Output Summary (Last 24 hours) at 10/21/2023 1045 Last data filed at 10/20/2023 2258 Gross per 24 hour Intake 300 ml Output -- Net 300 ml Physical Exam Cardiovascular: Rate and Rhythm: Normal rate and regular rhythm. Pulses: Normal pulses. Heart sounds: Normal heart sounds. No murmur heard. Pulmonary: Effort: Pulmonary effort is normal. No respiratory distress. Breath sounds: Normal breath sounds. No rhonchi. Chest: Chest wall: No tenderness. Abdominal: General: There is no distension. Tenderness: There is no abdominal tenderness. There is no guarding. Musculoskeletal: General: No swelling. Right lower leg: No edema. Left lower leg: No edema. Estimated body mass index is 25.62 kg/m??? as calculated from the following: Height as of this encounter: 1.702 m (5' 7 ). Weight as of this encounter: 74.2 kg (163 lb 9.3 oz). Active Inpatient Problems Principal Problem: SOB (shortness of breath) Active Problems: Malignant tumor of urinary bladder (CMS/HCC) Increased infection risk status post immunosuppressive therapy Prediabetes DENIZ (acute kidney injury) (CMS/HCC) Bacteremia Leukocytosis Dyspnea on exertion Suspected pulmonary embolism Pneumonia Bronchiolitis Hypoxia Assessment and Plan Shortness of Breath Infectious Bronchiolitis Elevated D-Dimer -CXR showed consolidation in lingula, CT chest w/o contrast showed groundglass changes consistent with infectious bronchiolitis -VQ scan 10/19 negative -Leukocytosis on presentation, resolved -Rapid COVID negative -Continue IV Rocephin and IV azithromycin -heparin discontinued Malignant tumor of urinary bladder -Patient receives monthly IV chemo treatments, most recent treatment 3 months ago -Cystoscopy on June 2023 showed no obvious tumors History of renal transplant 2006 -Patient currently on everolimus, tacrolimus, and prednisone -Nephrology consulted to manage immunosuppressive medications in setting of infection -Awaiting fungal panel prior to discharge DENIZ on CKD stage IV, baseline Cr 2.4 -Cr elevated today 2.59 Hypomagnesemia -1.8 -Replace as needed Type 2 Diabetes, insulin-dependent -Diagnosed in 2022 -patient currently taking long-acting insulin and Tujeo VTE Prophylaxis: IV heparin Scheduled Meds [START ON 10/25/2023] alendronate, 35 mg, oral, q7 days atorvastatin, 40 mg, oral, Nightly azithromycin, 500 mg, intravenous, q24h cefTRIAXone, 1 g, intravenous, q24h [Held by provider] everolimus, 0.75 mg, oral, BID famotidine, 20 mg, oral, Daily febuxostat, 40 mg, oral, Daily insulin lispro, 0-5 Units, subcutaneous, TID with meals And insulin lispro, 0-4 Units, subcutaneous, Nightly kit for prep of [id number], 5.3 millicurie, intravenous, Once in imaging kit prep technetium [id number] pentetate, 39.5 millicurie, inhalation, Once in imaging levothyroxine, 150 mcg, oral, Daily magnesium oxide, 400 mg, oral, Daily metoprolol tartrate, 25 mg, oral, BID predniSONE, 10 mg, oral, Daily tacrolimus, 0.5 mg, oral, BID BETA Oxygen Therapy, Pertinent Investigations Hematology: Results from last 7 days Lab Units 10/20/23 0354 10/20/23 0240 10/19/23203610/19/23 1925 WBC AUTO 10*3/uL 10.27 9.97 -- 11.63* HEMOGLOBIN g/dL 14.3 14.4 -- 16.4* HEMATOCRIT % 44.9 44.2 -- 49.8* MCV fL 86.2 84.4 -- 84.1 PLATELETS AUTO 10*3/uL 169 160 < > 174 INR -- -- -- 0.94 < > = values in this interval not displayed. Chemistry: Results from last 7 days Lab Units 10/21/23 0506 10/20/23 0240 10/19/23 1925 SODIUM mmol/L 141 142 138 POTASSIUM mmol/L 4.1 4.1 4.6 CHLORIDE mmol/L 111* 112* 107 CO2 mmol/L 19* BUN mg/dL 37* 36* 41* CREATININE mg/dL 2.59* 2.45* 2.69* GLUCOSE mg/dL 76 143* 200* CALCIUM mg/dL 9.1 9.1 10.2 No lab exists for component: AFIO2 , APHT , APCOT , APOT , ATCO2 , CK , ALB , IBILI Results from last 7 days Lab Units 10/21/23 0722 10/20/23 2058 10/20/23 1722 10/20/23 1219 10/20/23 0728 10/20/23 0540 POCT GLUCOSE mg/dL 195* 176* 198* 175* 143* 87 Historical Values: (Includes values prior to this admission) Lab Results Component Value Date TSH 0.01 ( (more content not included)... [facility] 10-20-2023 Note Pharmacy completed a medication history for Ja Tavera. Patient is a 63 y.o. year old female. Patient has allergies to: Aspirin, Ibuprofen, and Amlodipine Patient fills at [facility] ). Medication list was obtained from patient and medication list brought in by patient. Patient is very good historian. Home medication list has been updated. Please call pharmacy with any questions. Thank you! Thanks, Taylor Du, JacquiD, BCPS, 10/20/23 [facility] 10-20-2023 Note 10/20/23 0959 Admission Assessment Questions Verify insurance with patient Yes Do you understand medical disease or what brought you into the hospital? Yes Who is your current PCP? Alejandro Villagran Can I schedule a follow up appointment for you at the time of discharge? Yes Do you understand why you are taking your current medications? Yes Are you taking your medications as prescribed? Yes Did patient provide teach back? No Pharmacy Bedside Delivery Status Interested Does the patient have a caseworker intake assigned to them through their insurance? No Living Arrangement (Current/Prior to Hospitalization) Home self care (From home with ) Does the patient have history of HHC or SNF? No Assistive Device Not applicable Patient's goal for discharge Plan is to discharge home Was patient reminded that goal for discharge is 11am? Yes Does the patient have transportation at discharge? Yes Type of Residence Private residence Is PT/OT appropriate? No Is PT/OT ordered? No Is SW consult appropriate? No Is SW consult ordered? No Do you understand the benefits of MyChart? Yes Were you able to send link and activate MyChart? No [facility] 10-20-2023 Note Hospital Medicine Daily Progress Note - 10/20/2023 9:56 AM; Room: [address] [place] [address] Admission: 10/19/2023 6:19 PM; Length of stay: 1 days THE HOSPITALIST TEAM PREFERS TO USE [employer] FOR COMMUNICATION 7AM-7PM. IF I DO NOT RESPOND WITHIN 15 MINUTES, PLEASE PAGE ME/CALL THROUGH THE PRESS OPERATOR APPRENTICE. FROM 7PM-7AM, PLEASE PAGE [phone](COVR) Code Status: Full Code Barriers to Discharge: SOB Expected Discharge Date: Discharge Destination: home Overview Patient is seen for evaluation and management of SOB. Subjective Patient seen and examined at bedside. Endorses she does not feel SOB on NC, but did feel winded when she got up to use the restroom. Denies any chest pain, tightness, palpitations, fevers, chills, SOB, LE swelling. Patient also denies hematuria, dysuria, or polyuria. Patient on 2L 99% O2 sat. Patient currently on IV heparin awaiting VQ scan today (elevated D-dimer in ER, could not get CTA due to DENIZ and renal transplant history) Patient currently on Everolimus, Tacrolimus, and prednisone for renal transplant immunosuppression, and takes metoprolol for BP. Last chemo treatment 3 days ago, patient diagnosed with bladder CA in 2020, and has had bladder surgery to remove tumor and on chemo since. Patient endorses that last cystoscopy on June 2023 did not show obvious tumors, and repeat cystoscopy in 4-6 months. Diagnosed with Type 2 diabetes in 2022, on Novolog 10U at night and Toujeo. Physical Exam Visit Vitals BP (!) 161/102 Pulse 63 Temp 36.8 ???C (98.2 ???F) (Oral) Resp 16 Intake/Output Summary (Last 24 hours) at 10/20/2023 0956 Last data filed at 10/19/2023 2307 Gross per 24 hour Intake 1300 ml Output -- Net 1300 ml Physical Exam Cardiovascular: Rate and Rhythm: Normal rate and regular rhythm. Pulses: Normal pulses. Heart sounds: Normal heart sounds. No murmur heard. Pulmonary: Effort: Pulmonary effort is normal. No respiratory distress. Breath sounds: Normal breath sounds. No rhonchi. Chest: Chest wall: No tenderness. Abdominal: General: There is no distension. Tenderness: There is no abdominal tenderness. There is no guarding. Musculoskeletal: General: No swelling. Right lower leg: No edema. Left lower leg: No edema. Estimated body mass index is 25.66 kg/m??? as calculated from the following: Height as of this encounter: 1.702 m (5' 7 ). Weight as of this encounter: 74.3 kg (163 lb 12.8 oz). Active Inpatient Problems Principal Problem: SOB (shortness of breath) Active Problems: Malignant tumor of urinary bladder (CMS/HCC) Increased infection risk status post immunosuppressive therapy Prediabetes DENIZ (acute kidney injury) (CMS/HCC) Bacteremia Leukocytosis Dyspnea on exertion Suspected pulmonary embolism Pneumonia Bronchiolitis Hypoxia Assessment and Plan Shortness of Breath Infectious Bronchiolitis Elevated D-Dimer -CXR showed consolidation in lingula, CT chest w/o contrast showed groundglass changes consistent with infectious bronchiolitis -Leukocytosis on presentation, resolved -Rapid COVID negative, -VQ scan scheduled for today to r/o PE (recent tx for malignancy, elevated D-dimer, no hx of DVTs, no tachycardia, no hemoptysis) -Continue IV Rocephin and IV azithromycin -Continue IV heparin Malignant tumor of urinary bladder -Patient receives monthly IV chemo treatments, most recent treatment 3 months ago -Cystoscopy on June 2023 showed no obvious tumors History of renal transplant 2006 -Patient currently on everolimus, tacrolimus, and prednisone -Nephrology consulted to manage immunosuppressive medications in setting of infection DENIZ on CKD stage IV, baseline Cr 2.4 -Cr elevated on admission, now back to baseline 2.45 Hypomagnesemia -1.8 -Replace as needed Type 2 Diabetes, insulin-dependent -Diagnosed in 2022 -patient currently taking long-acting insulin and Tujeo VTE Prophylaxis: IV heparin Scheduled Meds azithromycin, 500 mg, intravenous, q24h cefTRIAXone, 1 g, intravenous, q24h insulin lispro, 0-5 Units, subcutaneous, TID with meals And insulin lispro, 0-4 Units, subcutaneous, Nightly predniSONE, 10 mg, oral, Daily tacrolimus, 0.5 mg, oral, BID BETA heparin, 0-28 Units/kg/hr, Last Rate: 16 Units/kg/hr (10/20/23 0432) Pertinent Investigations Hematology: Results from last 7 days Lab Units 10/20/23 0354 10/20/23 0240 10/19/23203610/19/23 1925 WBC AUTO 10*3/uL 10.27 9.97 -- 11.63* HEMOGLOBIN g/dL 14.3 14.4 -- 16.4* HEMATOCRIT % 44.9 44.2 -- 49.8* MCV fL 86.2 84.4 -- 84.1 PLATELETS AUTO 10*3/uL 169 160 < > 174 INR -- -- -- 0.94 < > = values in this interval not displayed. Chemistry: Results from last 7 days Lab Units 10/20/23 02410/19/235 SODIUM mmol/L 142 138 POTASSIUM mmol/L 4.1 4.6 CHLORIDE mmol/L 112* 107 CO2 mmol/L 22 19* BUN mg/dL 36* 41* CREATININE mg/dL 2.45* 2.69* GLUCOSE mg/dL 143* 200* CALCIUM mg/dL 9.1 10.2 No lab ex (more content not included)... [facility] 10-19-2023 Note 10/19/23 1151 Financial Resource Strain How hard is it for you to pay for the very basics like food, housing, medical care, and heating? Not hard Housing Stability In the last 12 months, was there a time when you were not able to pay the mortgage or rent on time? N In the last 12 months, how many places have you lived? 1 (Lives at home w/ ) In the last 12 months, was there a time when you did not have a steady place to sleep or slept in a long-term (including now)? N Transportation Needs In the past 12 months, has lack of transportation kept you from medical appointments or from getting medications? no In the past 12 months, has lack of transportation kept you from meetings, work, or from getting things needed for daily living? No Food Insecurity Within the past 12 months, you worried that your food would run out before you got the money to buy more. Never true Within the past 12 months, the food you bought just didn't last and you didn't have money to get more. Never true Stress Do you feel stress - tense, restless, nervous, or anxious, or unable to sleep at night because your mind is troubled all the time - these days? Only a littl Social Connections In a typical week, how many times do you talk on the phone with family, friends, or neighbors? More than 3 How often do you get together with friends or relatives? More than 3 How often do you attend worship or congregation services? Never Do you belong to any clubs or organizations such as worship groups, unions, fraternal or athletic groups, or school groups? No How often do you attend meetings of the clubs or organizations you belong to? Never Are you , , , , never , or living with a partner? Intimate Partner Violence Within the last year, have you been afraid of your partner or ex-partner? No Within the last year, have you been humiliated or emotionally abused in other ways by your partner or ex-partner? No Within the last year, have you been kicked, hit, slapped, or otherwise physically hurt by your partner or ex-partner? No Within the last year, have you been raped or forced to have any kind of sexual activity by your partner or ex-partner? No Alcohol Use Q1: How often do you have a drink containing alcohol? Never Q2: How many drinks containing alcohol do you have on a typical day when you are drinking? None Q3: How often do you have six or more drinks on one occasion? Never Utilities In the past 12 months has the electric, gas, oil, or water company threatened to shut off services in your home? 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 Reason Psychosocial assessment Patient Information Primary Caregiver Self Accompanied by/Relationship (Agb) Activities of Daily Living Assistive Device Not applicable Living Arrangement (Current/Prior to Hospitalization) Private residence (Lives w/ ) Ambulation Independent Dressing Independent Feeding Independent Behavior Oriented (A&Ox4) Communication Can write;Talks;Understands speaking;Understands Faroese;Reads Income Information Income Source Unemployed (Retired) Discharge Planning Support Systems Spouse/significant other;Children (, three sons) Type of Residence Private residence Will patient need Precert for Post Acute needs? No Patient's goal for discharge Home Does the patient need discharge transport arranged? No Completed social work assessment and SDoH screening. Patient was A&Ox4 at this time. Patient's , Gab, was currently present at bedside. Patient reported that she lives at home with her and she identified her support system as her and her three sons. Patient endorsed that she is moderately socially active. Patient reported that she is independent with ADLs without the use of any DME. Patient reported that she is retired from employment and she denied the need for assistance with obtaining basic needs. Patient also denied the need for assistance with transportation for medical appointments and she denied the need for assistance with transportation home from the hospital upon discharge. Patient denied experiencing any significant amount of stress in her everyday life, denied experiencing any form of IPV within the past year, and denied any alcohol consumption or recreational drug use. [facility] 10-19-2023 Note Hospital Medicine History and Physical 10/20/2023 6:21 AM THE HOSPITALIST TEAM PREFERS TO USE [employer] FOR COMMUNICATION 7AM-7PM. IF I DO NOT RESPOND WITHIN 15 MINUTES, PLEASE PAGE ME/CALL THROUGH THE PRESS OPERATOR APPRENTICE. FROM 7PM-7AM, PLEASE PAGE [phone](COVR) Chief Complaint Chief Complaint Patient presents with Shortness of Breath History of Present Illness Ja Tavera is an 63 y.o. female who came from home with past medical history including bladder cancer on IV chemo monthly, HTN, renal transplant (2006) on antirejection medications, and prediabetes. Patient's most recent chemotherapy infusion 3 days ago. Patient presented to [facility] ED per direction of her PCP for evaluation of shortness of breath. Patient reported she has had shortness of breath over the past year that has worsened with exertion over the past months. She reports she had a PCP appointment today who encouraged her to come to the ED to rule out blood clots, pneumonia, and asthma. Patient reported to ED provider that her PCP wanted her admitted for these workups. Upon initial presentation, patient was hypoxic with exerition/ambulation/prolonged convo on room air, satting 88-91% on RA however, patient satting mid to upper 90s on 2L supplemental O2 via NC. No hypoxia noted at rest. Patient denies chest pain, N/V/D/C, abdominal pain, dysuria. She does endorse intermittent cough however denies any sputum production, no sick contacts. Patient states she has had COVID in the past with last COVID-19 infection over 2-3 years ago. She denies any history of stroke, GI bleed hematuria, bloody/dark tarry stools, nor any overt signs of bleeding. She denies any use of anticoagulation therapy and denies any personal history of DVT/PE. ED workup shows ECG with normal sinus rhythm. XR chest shows new consolidation in lingula and also a nodular focus within the right lateral lower lung juxtapleural measuring approximately 12 mm. Neoplasm is not excluded. CT chest without IV contrast shows subtle groundglass changes within the lingula, likely infectious bronchiolitis. Based on the peripheral distribution COVID-pneumonia not excluded. Laboratory workup significant for elevated D-dimer 11.36, DENIZ AEB BUN 41, creatinine 2.69, EGFR 19.4. Patient noted to be hyperglycemic with a blood glucose of 200. APTT 23.0, BNP 178. Patient with leukocytosis AEB auto WBC 11.63. Rapid COVID negative. Started on IV Rocephin and IV azithromycin for infectious bronchiolitis. D-dimer elevated, though with patient's history of renal transplant and CKD, cannot get CTA chest to r/o PE. Therefore, VQ scan ordered for tomorrow morning. Due to hypoxia and elevated D-dimer along with increased risk of PE r/t history of cancer, IV heparin infusion initiated in ED. Temp: [36.8 ???C (98.2 ???F)] 36.8 ???C (98.2 ???F) Heart Rate: [63-81] 63 Resp: [13-26] 16 BP: (139-177)/(80-104) 161/102 Physical Exam Vitals and nursing note reviewed. Exam conducted with a personnel representative present. Constitutional: General: She is not in acute distress. Appearance: Normal appearance. She is not ill-appearing, toxic-appearing or diaphoretic. HENT: Head: Normocephalic and atraumatic. Nose: Nose normal. No congestion or rhinorrhea. Mouth/Throat: Mouth: Mucous membranes are moist. Pharynx: Oropharynx is clear. Eyes: Extraocular Movements: Extraocular movements intact. Conjunctiva/sclera: Conjunctivae normal. Pupils: Pupils are equal, round, and reactive to light. Cardiovascular: Rate and Rhythm: Normal rate and regular rhythm. Pulses: Normal pulses. Heart sounds: Normal heart sounds. Pulmonary: Effort: Pulmonary effort is normal. Breath sounds: Normal breath sounds. No wheezing or rhonchi. Comments: Increased O2 demand with exertion. On 2L supplemental O2 via NC. Abdominal: General: Bowel sounds are normal. Palpations: Abdomen is soft. Musculoskeletal: General: Normal range of motion. Cervical back: Normal range of motion and neck supple. Right lower leg: No edema. Left lower leg: No edema. Skin: General: Skin is warm and dry. Capillary Refill: Capillary refill takes less than 2 seconds. Coloration: Skin is not pale. Findings: No lesion. Neurological: Mental Status: She is alert and oriented to person, place, and time. Mental status is at baseline. Psychiatric: Mood and Affect: Mood normal. Behavior: Behavior normal. Thought Content: Thought content normal. Judgment: Judgment normal. Review of Systems Constitutional: Positive for activity change and fatigue. Negative for chills and fever. HENT: Negative. Eyes: Negative. Respiratory: Positive for shortness of breath. Shortness of breath with exertion.Increased need for rest breaks. Cardiovascular: Negative for chest pain, palpitations and leg swelling. Gastrointestinal: Negative for constipation, diarrhea, nausea and vomiting. Endocrine: Negative. Genitourinary: Negativ (more content not included)... [facility] 10-16-2023 Note 0950 Arrived to [facility] by wheelchair with erickson catheter intact, draining clear, pale yellow urine, connections intact. CPetersRN 1145 Reviewed home care instructions post intravesicular chemotherapy, States understanding. CPetersRN 1200 Erickson catheter opened to drain, clear straw colored return. Balloon deflated, erickson catheter removed, discharged. Chemo dwell for each drug 60 minutes, no leakage. CPetersRN [facility] 10-16-2023 Note 7991 Niya Segal exp lained the procedure to Ja Tavera and aJ Tavera verbalized understanding. Ja Tavera was then placed on the exam table in Supine frog leg position, then prepped in sterile fashion using aseptic technique. A 14 fr. coude erickson catheter was inserted without complications, adequate urine return was achieved, then 10 ml of sterile water were used to inflate the balloon. Ja Tavera tolerated the procedure well. After erickosn was in place, Ja Tavera was placed in a wheelchair, given her bag of personal belongings, then transported by [id number] down to the Infusion Center. 7991 then informed Infusion key account coordinator that Ja Tavera was ready for treatment. [facility] 09-18-2023 Note 7991 Niyashahla Segal exp lained the procedure to Ja Tavera and Ja Tavera verbalized understanding. Ja Tavera was then placed on the exam table in Supine frog leg position, then prepped in sterile fashion using aseptic technique. A 14 fr. coude erickson catheter was inserted without complications, adequate urine return was achieved, then 10 ml of sterile water were used to inflate the balloon. Ja Tavera tolerated the procedure well. After erickson was in place, Ja Tavera was placed in a wheelchair, given her bag of personal belongings, then transported by [id number] K down to the Infusion Center. 7991 Niya K then informed Infusion key account coordinator that Ja Tavera was ready for treatment. [facility] 07-03-2023 Note Urology Clinic H&P Dr. Oh White MD Patient: Ja Tavera Date of : 1960 HISTORY OF PRESENT ILLNESS: The patient is a 62 y.o. female who presents today for cystoscopy. Last cystoscopy was on 01/31/2024. Pt has a history of bladder cancer. Patient's old records, notes and chart reviewed and summarized above. Past Medical History: Past Medical History: Diagnosis Date Bladder cancer (CMS/HCC) Diabetes mellitus (CMS/HCC) Hypercholesteremia Hypertension Past Surgical History: Past Surgical History: Procedure Laterality Date COLONOSCOPY NEPHRECTOMY THYROID SURGERY TONSILLECTOMY Medications: Current Outpatient Medications on File Prior to Visit Medication Sig Dispense Refill alendronate (Fosamax) 35 mg tablet Take 1 tablet by mouth 1 (one) time per week. atorvastatin (Lipitor) 40 mg tablet Take 1 tablet by mouth in the morning. BD Ultra-Fine Short Pen Needle 31 gauge x 5/16 needle in the morning and at bedtime. as directed bimatoprost (Lumigan) 0.01 % ophthalmic solution INSTILL 1 DROP INTO BOTH EYES ONCE DAILY cycloSPORINE (Restasis) 0.05 % ophthalmic emulsion 1 drop both eyes BID empagliflozin (Jardiance) 10 mg 1 (one) time each day at the same time. everolimus (Zortress) 0.75 mg tablet TAKE 1 TABLET BY MOUTH TWICE DAILY 60 tablet 11 famotidine (Pepcid) 20 mg tablet Take 1 tablet by mouth in the morning and at bedtime. febuxostat (Uloric) 40 mg tablet Take 1 tablet by mouth in the morning. insulin detemir (Levemir FlexTouch U-100 Insuln) 100 unit/mL (3 mL) pen 60 Units. 50 in am 10 nightly levothyroxine (Synthroid, Levoxyl) 137 mcg tablet Take 150 mcg by mouth in the morning. 150 mcg loratadine (Claritin) 10 mg tablet Take 1 tablet every day by oral route. magnesium oxide (Mag-Ox) 400 mg (241.3 mg magnesium) tablet Take 1 tablet by mouth in the morning. metoprolol tartrate (Lopressor) 25 mg tablet Take 1 tablet by mouth in the morning. multivitamin (Theragran-M) 9 mg iron-400 mcg tablet Take 1 tablet by mouth in the morning. omega-3 fatty acids-fish oil 300-1,000 mg capsule Take 2 g by mouth in the morning. [employer] Verio test strips strip in the morning, afternoon, and at bedtime. for testing oxybutynin (Ditropan) 5 mg tablet Take 1 tablet (5 mg) by mouth three times daily. 270 tablet 3 predniSONE (Deltasone) 10 mg tablet Take 1 tablet by mouth in the morning. tacrolimus (Prograf) 0.5 mg capsule Take 1 capsule (0.5 mg) by mouth in the morning and at bedtime. Z94.0, Total daily dosage 1 mg 60 capsule 11 Girma Paulino U-300 SoloStar 300 unit/mL (3 mL) injection INJECT 65 UNITS UNDER THE SKIN IN THE MORNING AND 35 UNITS IN THE EVENING No current facility-administered medications on file prior to visit. Allergies: Aspirin and Ibuprofen Social History: Social History Socioeconomic History Marital status: Spouse name: Not on file Number of children: Not on file Years of education: Not on file Highest education level: Not on file Occupational History Not on file Tobacco Use Smoking status: Never Smokeless tobacco: Never Vaping Use Vaping Use: Never used Substance and Sexual Activity Alcohol use: Never Drug use: Never Sexual activity: Not on file Other Topics Concern Not on file Social History Narrative Not on file Social Determinants of Health Financial Resource Strain: Not on file Food Insecurity: Not on file Transportation Needs: Not on file Physical Activity: Not on file Stress: Not on file Social Connections: Not on file Intimate Partner Violence: Not At Risk (05/25/2023) Humiliation, Afraid, Rape, and Kick questionnaire Fear of Current or Ex-Partner: No Emotionally Abused: No Physically Abused: No Sexually Abused: No Housing Stability: Not on file Family History: Family History Problem Relation Name Age of Onset Lung cancer Father Liver cancer Father Previous Urologic Family history: none REVIEW OF SYSTEMS: General ROS: negative, no fatigue Psychological ROS: no depression, no suicidal thoughts ENT ROS: no bleeding, no ear tingling Hematological and Lymphatic ROS: no bruising, no swelling Endocrine ROS: negative Respiratory ROS: no wheezing, no shortness of breath Cardiovascular ROS: no chest pain Gastrointestinal ROS: no constipation, no diarrhea Genito-Urinary ROS: see HPI Musculoskeletal ROS: no muscle pain Physical Exam: This a 62 y.o. patient There were no vitals filed for this visit. Constitutional: Patient in no acute distress; Neuro: alert and oriented to person place and time. Psych: Mood and affect normal. Skin: Normal Lungs: Respiratory effort normal Cardiovascular: Normal peripheral pulses Abdomen: Soft, non-tender, non-distended with no CVA, flank pain, hepatosplenomegaly or hernia. Lymphatics: no palpable lymphadenopathy LABS: No lab exists for component: LABGLOM No results found for: PSA Addition (more content not included)... [facility] 07-03-2023 Note Attestation signed by Samy White MD at 08/24/2023 4:03 AM I was present for the entirety of the procedure(s). Samy White MD Patient ID: Ja Tavear is a 62 y.o. female. Cystoscopy Date/Time: 07/03/2023 2:31 PM Performed by: Chester Gaviria MD Authorized by: Samy White MD Procedure - Bladder Cystoscopy: Procedure details: cystoscopy Post-procedure: Patient tolerance: Patient tolerated the procedure well with no immediate complications Comments: Patient underwent a cystoscopy performed for bladder cancer surveillance. No obvious tumors lesions or masses are in the bladder. Previous surgical scar was observed. 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 Patient will return to office in 4 to 6 months for repeat cystoscopy [facility] 05-25-2023 Note Pt arrived from urol ogy clinic with erickson in place draining clear yellow urine. Gemcitabine instilled to dwell 60 minutes. Able to hold without problems, drained adequate amounts of urine to erickson bag. Docetaxel instilled to dwell 60 minutes. Denies any spasms or leakage, drained adequate amounts urine to erickson bag. Erickson removed prior to discharge. [facility] 05-25-2023 Note Niya wisee d the procedure to Ja Rachelle Octaivo and Ja Tavera verbalized understanding. Ja Tavera was then placed on the exam table in Supine frog leg position, then prepped in sterile fashion using aseptic technique. A 14 fr. coude erickson catheter was inserted without complications, adequate urine return was achieved, then 10 ml of sterile water were used to inflate the balloon. Ja Tavera tolerated the procedure well. After erickson was in place, Ja Tavera was placed in a wheelchair, given her bag of personal belongings, then transported by 7991 down to the Infusion Center. 7991 then informed Infusion key account coordinator that Ja Tavera was ready for treatment. [facility] 04-27-2023 Note 1215-Patient tolerat ed Gemcitabine dwell time of 1hr with only one minimal spasm noted. No leakage seen, Erickson opened and drained clear, yellow urine 1340-Patient tolerated Docetaxel dwell time for 1hr without any complications. Patient denies spasms, or leakage. Erickson opened and drained clear yellow urine. 1350-Erickson balloon deflated and erickson d/c'd. Patient tolerated well [facility] 04-27-2023 Note NATALY Edward explained the procedure to Ja Tavera and Ja Tavera verbalized understanding. Ja Tavera was then placed on the exam table in Supine frog leg position, then prepped in sterile fashion using aseptic technique. A 14 fr. coude erickson catheter was inserted without complications, adequate urine return was achieved, then 10 ml of sterile water were used to inflate the balloon. Ja Tavera tolerated the procedure well. After erickson was in place, Ja Tavera was placed in a wheelchair, given her bag of personal belongings, then transported down to the Infusion Center. Then informed Infusion key account coordinator that Ja Tavera was ready for treatment. [facility] 03-30-2023 Note Patient tolerated Ge m/Doce intravesicular installation with 1hr dwell time for each. No complaints or reactions noted. [facility] 03-30-2023 Note Niya Segal explaine d the procedure to Ja Culverakhil and Ja Tavera verbalized understanding. Ja Tavera was then placed on the exam table in Supine frog leg position, then prepped in sterile fashion using aseptic technique. A 14 fr. coude erickson catheter was inserted without complications, adequate urine return was achieved, then 10 ml of sterile water were used to inflate the balloon. Ja Tavera tolerated the procedure well. After erickson was in place, Ja Tavera was placed in a wheelchair, given her bag of personal belongings, then transported by 7991 down to the Infusion Center. 7991 then informed Infusion key account coordinator that Ja Tavera was ready for treatment. [facility] 09-09-2021 Evaluation note Encounter Date Diagnosis Assessment Notes Aug, Dysuria (ICD-10 - R30.0) Aug, Urinary tract infection, site not specified (ICD-10 - N39.0) Urinary tract infection (UTI) home care material was printed Drink plenty fluids, get plenty of rest. Take the cephalexin as prescribed until gone. Take the Pyridium as prescribed until gone. Continue all home medications as prescribed. Follow-up with your urologist to notify him of your UTI. Go to the ER for worsening symptoms or concern Aug, Hematuria, unspecified (ICD-10 - R31.9) [facility] 03-31-2022 Evaluation note* Encounter Date Diagnosis Assessment Notes Treatment Notes Treatment Clinical Notes Apr, Acute cystitis with hematuria (ICD-10 - N30.01) Discussed diagnosis and dipstick findings with patient. Will treat patient for UTI. Instructed patient to take antibiotic as prescribed, take with food, complete entire course of therapy even if feeling better. Allergies and recent antibiotic use were reviewed with patient. Advised patient culture was sent today and we will call with her results in 2-5 days. Patient instructed to push fluids. Advised patient to contact Urologist to let them know she was placed on antibiotic today. Patient symptoms should improve in the next 48 hours, if symptoms persist follow up with PCP or UC. Immediate eval by ER if back or flank pain, fever, chills, N/V, or any other concerning symptoms arise. Patient verbalizes understanding and is agreeable to treatment plan Apr, Other Urinary tract infection (UTI) home care material was printed [facility] Other Evaluation noteNo assessment information available [facility] Work Phone: Evaluation noteNo InformationNotwo [facility] [employer] Other Evaluation note* Diagnosis Type 2 diabetes mellitus with hyperglycemia, with long-term current use of insulin ([facility])- Primary Insulin long-term use ([facility]) Encounter for long-term (current) use of insulin Hyperlipemia, mixed ([facility]) Mixed hyperlipidemia Encounter for dietary consultation Vitamin D deficiency Acquired hypothyroidism ([facility]) Unspecified hypothyroidism skilled nursing current use of systemic steroids Kidney transplant status ([facility]) documented in this encounter [facility] HealthcareEvaluation note* Diagnosis Acute saddle pulmonary embolism with acute cor pulmonale (HCC) 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 ([facility]) documented in this encounter [facility] [employer] HealthEvaluation note* Diagnosis Acute on chronic respiratory failure with hypoxia ([facility])- Primary Shortness of breath Elevated d-dimer Abnormal coagulation profile DENIZ (acute kidney injury) (HCC) Acute kidney failure, unspecified Acute respiratory failure, unspecified whether with hypoxia or hypercapnia (HCC) Aortic atherosclerosis (HCC) Atherosclerosis of aorta Immunosuppression (HCC) Unspecified disorder of immune mechanism Hypertension Unspecified essential hypertension History of renal transplant Kidney replaced by transplant Diabetes mellitus (HCC) Type II or unspecified type diabetes mellitus without mention of complication, not stated as uncontrolled Bladder cancer (HCC) Malignant neoplasm of bladder, part unspecified DENIZ (acute kidney injury) (HCC) Acute kidney failure, unspecified NSTEMI (non-ST elevated myocardial infarction) (HCC) Acute myocardial infarction, subendocardial infarction, episode of care unspecified Elevated d-dimer Abnormal coagulation profile Leukocytosis Leukocytosis, unspecified Shortness of breath Pneumonia of both lungs due to infectious organism Biventricular congestive heart failure (HCC) Congestive heart failure, unspecified Aortic atherosclerosis (HCC) Atherosclerosis of aorta Hypoglycemia Hypoglycemia, unspecified Pericardial effusion Unspecified disease of pericardium Severe pulmonary hypertension (HCC) Cor pulmonale (HCC) Chronic pulmonary heart disease, unspecified Metabolic acidosis Acidosis Arterial hypotension Hypotension, unspecified Pulmonary embolus (HCC) Other pulmonary embolism and infarction Debility Debility, unspecified CKD (chronic kidney disease) stage 4, GFR 15-29 ml/min (HCC) Chronic kidney disease, Stage IV (severe) documented in this encounter [facility] [employer] [facility] Narrative - Reported* Type Description Date Medical History Anemia in chronic kidney disease Medical History Organ or tissue transplant, unsp ecified Medical History Anemia in other chronic diseases classified elsewhere Medical History Chronic kidney disease, stage 4 (severe) Medical History Hypothyroidism, unspecified Medical History Hypertension Medical History Pure hypercholesterolemia Medical History diabetes II Surgical History right nephrectomy 1971 Surgical History resection of superior cervical mass 10/05/07 Surgical History thyroidectomy, subtotal 1998 Surgical History thyroidectomy, completion 2005 Surgical History tonsillectomy and adenoidectomy Surgical History kidney transplant, living donor (brother) 05/2006 Surgical History tumor in bladder removed Hospitalization History see above [facility] Other Summary Purpose Family History No Family History Records FoundNo Family History Records FoundNo Family History Records FoundNo Family History Records FoundNo Family History Records Found Advance Directives No Advanced Directives Records Found Date Activated Date Inactivated Comments 11/08/2023 8:21 PM 11/16/2023 5:02 PM Healthcare Agents on File Name Relationship Healthcare Agent Relationshi p Communication Gab Tavera Spouse Primary Decision Maker [phone] (Mobile) Gab Tavera Jr. 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) Procedures Echo (TTE) complete (PRN contrast/bubble/strain/3D) NM ECHO TTHRC R-T 2D W/WOM-MODE COMPL SPEC&COLR D NM TTE W OR WO FOL WCON,DOPPLER Steven Jones MD [address] [address] Referral ID Status Reason Start Date Expiration Date Visits Re quested Visits Authorized [id number] Closed 02/11/2024 02/10/2025 1 1 Additional Source Comments Care Teams (unrecognized sec tion and content) Team Status: Inactive Member Role Status Dates Bonnie Raygoza APRN Attending Provider Active Flat Bed Operator Relationship Specialty Start Date End Date Alejandro Villagran MD [address] [place] [address] PCP - General Family Medicine 11/08/23 Flat Bed Operator Relationship Specialty Start Date End Date Alejandro Villagran MD [address] [place] [address] PCP - General Family Medicine 11/08/23 Goals (unrecognized section and content) Goals may be documented in a n alternate sectionNo InformationNo InformationNo Information REASON FOR VISIT (unrecogniz ed section and content) Specialty Diagnoses / Procedures Referred By Contac t Referred To Contact Diagnoses Acute hypoxic respiratory failure (HCC) Acute hypoxic resp failure [facility] [address] [place] [address] [facility] [address] [place] [address] Referral ID Status Reason Start Date Expiration Date Visits Re quested Visits Authorized [id number] 1 1 Specialty Diagnoses / Procedures Referred By Contac t Referred To Contact Diagnoses Acute saddle pulmonary embolism with acute cor pulmonale (HCC) 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) Procedures Echo (TTE) complete (PRN contrast/bubble/strain/3D) NM ECHO TTHRC R-T 2D W/WOM-MODE COMPL SPEC&COLR D NM TTE W OR WO FOL WCON,DOPPLER Steven Jones MD [address] [address] Referral ID Status Reason Start Date Expiration Date Visits Re quested Visits Authorized [id number] Closed 02/11/2024 02/10/2025 1 1 Reason Comments Diabetes Mellitus Follow-up DYSURIAPOSS UTI INFORMATION SOURCE (unrecogn ized section and content) DATE CREATED AUTHOR 09/13/2021 [facility] DATE CREATED AUTHOR AUTHOR'S ORGANIZ ATION 10/26/2021 [facility] DATE CREATED AUTHOR AUTHOR'S ORGANIZ ATION 03/08/2022 [facility] DATE CREATED AUTHOR AUTHOR'S ORGANIZ ATION 03/08/2024 [facility] DATE CREATED AUTHOR AUTHOR'S ORGANIZ ATION 03/21/[address] [facility] Ordered Prescriptions (unrec ognized section and content) Prescription Sig Dispensed Refills Start Date End Da te levothyroxine (SYNTHROID) 125 MCG tablet Take 1 tablet by mouth Daily 30 tablet 3 11/17/2023 apixaban (ELIQUIS) 5 MG TABS tablet Take 2 tablets by mouth 2 times daily for 3 days, THEN 1 tablet 2 times daily. 60 tablet 11/16/2023 12/19/2023 sodium bicarbonate 650 MG tablet Take 1 tablet by mouth 2 times daily 30 tablet 11/16/2023 Scheduled Active and Recently Administ ered Medications (unrecognized section and content) Medication Order 11/14/2023 11/15/2023 11/16/2023 apixaban (ELIQUIS) tablet 10 mg(Linked Group 1) 10 mg, Oral, 2 TIMES DAILY, 14 doses, First dose on Thu11/12/23 at 1000, Last dose on Thu11/18/23 at 2100, Indication of Use: Treatment-DVT/PE, ANTICOAGULANT 0833 (Given - Provider: Mynor Arshad RN)2032 (Given - Provider: Amelia Du RN) 0820 (Given - Provider: Mynor Arshad RN)2118 (Given - Provider: Kathy Serra RN) 1016 (Given - Provider: Albert Amaro RN)2100 (Due) apixaban (ELIQUIS) tablet 5 mg(Linked Group 1) 5 mg, Oral, 2 TIMES DAILY, First dose on Thu11/19/23 at 0900, Until Discontinued, Indication of Use: Treatment-DVT/PE, ANTICOAGULANT atorvastatin (LIPITOR) tablet 40 mg 40 mg, Oral, NIGHTLY, First dose on Thu11/08/23 at 2200, Until Discontinued 2029 (Given - Provider: Amelia Du RN) 2118 (Given - Provider: Kathy Serra RN) 2100 (Due) cefTRIAXone (ROCEPHIN) 2000 mg in sterile water 20 mL IV syringe () 2,000 mg, IntraVENous, EVERY 24 HOURS, 7 doses, First dose on Thu11/09/23 at 1430, Last dose on Thu11/15/23 at 1430, Antimicrobial Indications: Pneumonia (CAP), CAP duration of therapy: 7 days, Administer as slow IV Push over 5 mins 1312 (Given - Provider: Mynor Arshad RN) 1458 (Given - Provider: Mynor Arshad RN) Everolimus TABS 0.75 mg (Patient Supplied) 0.75 mg, Oral, 2 TIMES DAILY, First dose on Thu11/09/23 at 1700, Do not crush or break. Hazardous Medication -- Refer to facility policy for handling and disposal. 0833 (Given - Provider: Mynor Arshad RN)2029 (Given - Provider: Amelia Du RN) 08 (Given - Provider: Mynor Arshad RN)2117 (Given - Provider: Kathy Serra, ELIZA) 101 (Given - Provider: Albert Amaro RN)2099 (Due) insulin lispro (HUMALOG,ADMELOG) injection vial 0-4 Units 0-4 Units, SubCUTAneous, NIGHTLY, First dose on Thu11/08/23 at 2100, Until Discontinued, If continuous tube feedings/TPN/NPO, give correction dose based on result, no reduction in dose. If eating or bolus tube feeding: Corrective Bedtime Algorithm Glucose: Dose: 70-299 No Insulin 300-349 4 Units Over 349 4 Units and notify physician 2019 (Not Given - Provider: Amelia Du RN - Reason: Order parameters not met) 2110 (Not Given - Provider: Kathy Serra, ELIZA - Reason: Order parameters not met) 2099 (Due) insulin lispro (HUMALOG,ADMELOG) injection vial 0-8 Units 0-8 Units, SubCUTAneous, 3 TIMES DAILY WITH MEALS, First dose on Thu11/09/23 at 0800, Until Discontinued, Medium Dose Corrective Algorithm Glucose: Dose: 70-199 No Insulin 200-249 2 Units 250-299 4 Units 300-349 6 Units Over 349 8 Units and notify physician 0811 (Not Given - Provider: Elex Turski, RN - Reason: Order parameters not met)1452 (Not Given - Provider: Mynor Arshad RN - Reason: Order parameters not met)1605 (Given - Provider: Mynor Arshad RN) 0822 (Not Given - Provider: Mynor Arshad RN - Reason: Order parameters not met)1126 (Given - Provider: Mynor Arshad RN)1640 (Given - Provider: Mynor Arshad RN) 1005 (Not Given - Provider: Albert Amaro RN - Reason: Order parameters not met)1225 (Given - Provider: Albert Amaro RN)1700 (Due) levothyroxine (SYNTHROID) tablet 125 mcg 125 mcg, Oral, DAILY, First dose (after last modification) on Thu11/10/23 at 0700, Until Discontinued, Tube feeding (TF) interaction, obtain physician order to manage, recommend holding TF for 30 minutes before and after dose. 0611 (Given - Provider: Amelia Du RN) 0526 (Given - Provider: Amelia Du RN) 1016 (Given - Provider: Albert Amaro RN) metoprolol tartrate (LOPRESSOR) tablet 25 mg 25 mg, Oral, 2 TIMES DAILY, First dose on Thu11/09/23 at 0900, Until Discontinued 0833 (Given - Provider: Mynor Arshad RN)2029 (Given - Provider: Amelia Du RN) 0821 (Given - Provider: Mynor Arshad RN)2215 (Not Given - Provider: Kathy Serra RN - Reason: Other - Comment: HR 59.) 1017 (Given - Provider: Albert Amaro RN)2100 (Due) predniSONE (DELTASONE) tablet 10 mg 10 mg, Oral, DAILY, First dose on Thu11/09/23 at 1415, Until Discontinued 0832 (Given - Provider: Mynor Arshad RN) 0820 (Given - Provider: Myonr Arshad RN) 1017 (Given - Provider: Albert Amaro RN) sodium bicarbonate tablet 650 mg (CANCELED) 650 mg, Oral, DAILY, First dose on Thu11/13/23 at 1200, Until Discontinued 0833 (Given - Provider: Mynor Arshad RN) sodium bicarbonate tablet 650 mg 650 mg, Oral, 2 TIMES DAILY, First dose on Thu11/16/23 at 1130, Until Discontinued 1226 (Given - Provider: Albert Amaro RN)2100 (Due) sodium chloride flush 0.9 % injection 5-40 mL 5-40 mL, IntraVENous, EVERY 12 HOURS SCHEDULED (2 times per day), First dose on Thu11/08/23 at 2100, Until Discontinued, For Line Patency: Peripheral IV = 5 mL; Midline or Central Line = 10 mL/lumen. If following IV push medication, administer flush at same rate as the IV push. Flush volume is determined by type of infusion therapy being given. For non-viscous solutions use: Peripheral IV = 5 mL Midline or Central Line = 10 mL/lumen For viscous solutions (i.e. blood components, parenteral nutrition, contrast media, or after obtaining blood sample) use: Peripheral IV = 10 mL Midline or Central Line = 20 mL/lumen 08 (Given - Provider: Mynor Arshad RN)2030 (Given - Provider: Amelia Du RN) 08 (Given - Provider: Mynor Arshad RN)2120 (Given - Provider: Kathy Serra, ELIZA) 102 (Given - Provider: Albert Amaro RN)2100 (Due) sodium chloride flush 0.9 % injection 5-40 mL 5-40 mL, IntraVENous, EVERY 12 HOURS SCHEDULED (2 times per day), First dose on Thu11/10/23 at 2100, Until Discontinued, For Line Patency: Peripheral IV = 5 mL; Midline or Central Line = 10 mL/lumen. If following IV push medication, administer flush at same rate as the IV push. Flush volume is determined by type of infusion therapy being given. For non-viscous solutions use: Peripheral IV = 5 mL Midline or Central Line = 10 mL/lumen For viscous solutions (i.e. blood components, parenteral nutrition, contrast media, or after obtaining blood sample) use: Peripheral IV = 10 mL Midline or Central Line = 20 mL/lumen, PACU only 0833 (Given - Provider: Mynor Arshad RN)2030 (Given - Provider: Amelia Du RN) 08 (Given - Provider: Mynor Arshad RN)2119 (Given - Provider: Kathy Serra RN) 102 (Given - Provider: Albert Amaro RN)2100 (Due) tacrolimus (proGRAF) capsule 0.5 mg 0.5 mg, Oral, 2 TIMES DAILY, First dose (after last modification) on Thu11/09/23 at 1600, Until Discontinued 0832 (Given - Provider: Mynor Arshad RN)2028 (Given - Provider: Amelia Du RN) 0820 (Given - Provider: Mynor Arshad, RN)2118 (Given - Provider: Kathy Serra RN) 1016 (Given - Provider: Albert Amaro RN)2100 (Due) PRN Medication Order 11/14/2023 11/15/2023 11/16/2023 0.9 % sodium chloride infusion IntraVENous, at 5-250 mL/hr, PRN, if patient receiving piggyback infusions and maintenance fluids are not ordered OR KVO fluids to protect IV site / prevent frequent line interruptions/ long duration, Starting on Thu11/08/23 at 2019, For piggyback infusion, administer at same rate as piggyback for a total of 25 mL. Enter 25 mL into dose field and piggyback rate into rate field of order. If piggyback is infusing at a rate less than 100 mL/hr, enter 25 mL into dose field and 100 mL/hr into rate field of order. For KVO fluids, enter rate of 20 mL/hr or less into rate field of order. 0.9 % sodium chloride infusion IntraVENous, at 5-250 mL/hr, PRN, if patient receiving piggyback infusions and maintenance fluids are not ordered OR KVO fluids to protect IV site / prevent frequent line interruptions/ long duration, Starting on Thu11/10/23 at 1636, For piggyback infusion, administer at same rate as piggyback for a total of 25 mL. Enter 25 mL into dose field and piggyback rate into rate field of order. If piggyback is infusing at a rate less than 100 mL/hr, enter 25 mL into dose field and 100 mL/hr into rate field of order. For KVO fluids, enter rate of 20 mL/hr or less into rate field of order., PACU only acetaminophen (TYLENOL) suppository 650 mg(Linked Group 2) 650 mg, Rectal, EVERY 6 HOURS PRN, Starting on Thu11/08/23 at 2019, Until Discontinued, Pain Mild (1-3), Fever, For temp greater than 100.4 F (38 C), Administer if oral route cannot be used. acetaminophen (TYLENOL) tablet 650 mg(Linked Group 2) 650 mg, Oral, EVERY 6 HOURS PRN, Starting on 11/08/23 at 2018, Until Discontinued, Pain Mild (1-3), Fever, For temp greater than 100.4 F (38 C), Maximum dose of acetaminophen is 4000 mg from all sources in 24 hours. dextrose 10 % infusion IntraVENous, at 100 mL/hr, CONTINUOUS PRN, if blood glucose remains LESS THAN 70 mg/dL after 2 dextrose 10% intravenous boluses or administration of glucagon, Starting on Thu11/08/23 at 2023, If blood glucose fails to stabilize after 2 dextrose 10% intravenous boluses or glucagon administration, start dextrose 10% infusion at 100 mL/hour and repeat blood glucose at 30 and 60 minutes. If blood glucose is GREATER THAN 70 mg/dL after 60 minutes, discontinue dextrose 10% infusion. dextrose bolus 10% 125 mL(Linked Group 3) 125 mL, IntraVENous, at 937.5 mL/hr, Administer over 8 Minutes, PRN, Other, Blood glucose 40 - 69 mg/dL and patient NOT ALERT or NPO, Starting on Thu11/08/23 at 2023, Repeat blood glucose in 15 minutes. If blood glucose remains LESS THAN 70 mg/dL, repeat treatment and recheck blood glucose in 15 minutes x 2. If using glycemic management system, dose as instructed per system. If blood glucose remains LESS THAN 70 mg/dL after 2 intravenous boluses start dextrose 10% at 100 mL/hour and notify provider. dextrose bolus 10% 250 mL(Linked Group 3) 250 mL, IntraVENous, at 937.5 mL/hr, Administer over 16 Minutes, PRN, Other, Blood glucose LESS THAN 40 mg/dL and patient NOT ALERT or NPO, Starting on Thu11/08/23 at 2023, Repeat blood glucose in 15 minutes. If blood glucose remains LESS THAN 70 mg/dL, repeat treatment and recheck blood glucose in 15 minutes x 2. If using glycemic management system, dose as instructed per system. If blood glucose remains LESS THAN 70 mg/dL after 2 intravenous boluses start dextrose 10% at 100 mL/hour and notify provider. glucagon injection 1 mg 1 mg, SubCUTAneous, PRN, Starting on Thu11/08/23 at 2023, Until Discontinued, Low blood sugar, Blood glucose LESS THAN 70 mg/dL and patient NOT ALERT or NPO and does not have IV access., After administration, attempt intravenous access and start dextrose 10% at 100 mL/hr. Repeat blood glucose in 15 minutes x 2 and notify provider. glucose chewable tablet 16 g 16 g (4 tablet), Oral, PRN, Starting on Thu11/08/23 at 2023, Until Discontinued, Low blood sugar, If blood glucose is LESS THAN 70 mg/dL and patient is alert and tolerating oral. Give 4 tablets (16g) Repeat blood glucose in 15 minutes. If blood glucose is LESS THAN 70 mg/dL, repeat treatment and recheck blood glucose in 15 minutes x 2. If blood glucose remains LESS THAN 70 mg/dL, notify provider. naloxone 0.4 mg in 10 mL sodium chloride syringe IntraVENous, PRN, Opioid Reversal, Starting on Thu11/10/23 at 1636, PRN if respiratory rate is less than 6/min and patient is difficult to arouse then notify physician STAT. Mix 9 mL of sodium chloride 0.9% with 0.4 mg (1 mL) of naloxone (NARCAN) in 10 mL syringe. (Note: dilution is 0.04 mg/mL) Give 0.08 mg (2 mL of special dilution), slow IV push, repeat up to 0.4 mg (10 mL) or until patient is responsive to physical stimulation and respiratory rate is equal to or greater than 6 breaths/min. Continue to observe, if no response within 3 minutes of administration of 0.4 mg (10 mL) total, repeat dose (0.4 mg as administered previously). Concentration 0.04 mg/mL, PACU only ondansetron (ZOFRAN) injection 4 mg(Linked Group 4) 4 mg, IntraVENous, EVERY 6 HOURS PRN, Starting on Thu11/08/23 at 2019, Until Discontinued, Nausea, Vomiting, Administer if oral route cannot be used. ondansetron (ZOFRAN-ODT) disintegrating tablet 4 mg(Linked Group 4) 4 mg, Oral, EVERY 8 HOURS PRN, Starting on Thu11/08/23 at 2018, Until Discontinued, Nausea, Vomiting perflutren lipid microspheres (DEFINITY) injection 1.5 mL 1.5 mL, IntraVENous, IMG ONCE PRN, 1 dose, Starting on Thu11/10/23 at 1635, Until Discontinued, Other, Inability to detect 2 or more contiguous segments in any of the 3 apical views due to poor endocardial border definition, Echocardiogram should first be performed without contrast and if exam is adequate then DO NOT administer the contrast and delete the order using Per Protocol order mode. If unable to detect 2 or more contiguous segments in any of the 3 apical views due to poor endocardial border definition, then assess patient for any contraindications to echo contrast and if none present administer the echo contrast., Pre-procedure(Stress) polyethylene glycol (GLYCOLAX) packet 17 g 17 g, Oral, DAILY PRN, Starting on Thu11/08/23 at 2019, Until Discontinued, Constipation, First line therapy for constipation sodium chloride flush 0.9 % injection 5-40 mL 5-40 mL, IntraVENous, PRN, Starting on Thu11/08/23 at 2019, Until Discontinued, Line Care, After every IV line use, For Line Patency: Peripheral IV = 5 mL; Midline or Central Line = 10 mL/lumen. If following IV push medication, administer flush at same rate as the IV push. Flush volume is determined by type of infusion therapy being given. For non-viscous solutions use: Peripheral IV = 5 mL Midline or Central Line = 10 mL/lumen For viscous solutions (i.e. blood components, parenteral nutrition, contrast media, or after obtaining blood sample) use: Peripheral IV = 10 mL Midline or Central Line = 20 mL/lumen sodium chloride flush 0.9 % injection 5-40 mL 5-40 mL, IntraVENous, PRN, Starting on Thu11/10/23 at 1636, Until Discontinued, Line Care, After every IV line use, For Line Patency: Peripheral IV = 5 mL; Midline or Central Line = 10 mL/lumen. If following IV push medication, administer flush at same rate as the IV push. Flush volume is determined by type of infusion therapy being given. For non-viscous solutions use: Peripheral IV = 5 mL Midline or Central Line = 10 mL/lumen For viscous solutions (i.e. blood components, parenteral nutrition, contrast media, or after obtaining blood sample) use: Peripheral IV = 10 mL Midline or Central Line = 20 mL/lumen, PACU only Linked Groups Order Group 1: apixaban (ELIQUIS) tablet 10 mgJump to med 10 mg, Oral, 2 TIMES DAILY, 14 doses, First dose on Thu11/12/23 at 1000, Last dose on Thu11/18/23 at 2100, Indication of Use: Treatment-DVT/PE, ANTICOAGULANT Followed by apixaban (ELIQUIS) tablet 5 mgJump to med 5 mg, Oral, 2 TIMES DAILY, First dose on Thu11/19/23 at 0900, Until Discontinued, Indication of Use: Treatment-DVT/PE, ANTICOAGULANT Group 2: acetaminophen (TYLENOL) tablet 650 mgJump to med 650 mg, Oral, EVERY 6 HOURS PRN, Starting on Thu11/08/23 at 2019, Until Discontinued, Pain Mild (1-3), Fever, For temp greater than 100.4 F (38 C), Maximum dose of acetaminophen is 4000 mg from all sources in 24 hours. Or acetaminophen (TYLENOL) suppository 650 mgJump to med 650 mg, Rectal, EVERY 6 HOURS PRN, Starting on Thu11/08/23 at 2019, Until Discontinued, Pain Mild (1-3), Fever, For temp greater than 100.4 F (38 C), Administer if oral route cannot be used. Group 3: dextrose bolus 10% 125 mLJump to med 125 mL, IntraVENous, at 937.5 mL/hr, Administer over 8 Minutes, PRN, Other, Blood glucose 40 - 69 mg/dL and patient NOT ALERT or NPO, Starting on Thu11/08/23 at 2023, Repeat blood glucose in 15 minutes. If blood glucose remains LESS THAN 70 mg/dL, repeat treatment and recheck blood glucose in 15 minutes x 2. If using glycemic management system, dose as instructed per system. If blood glucose remains LESS THAN 70 mg/dL after 2 intravenous boluses start dextrose 10% at 100 mL/hour and notify provider. Or dextrose bolus 10% 250 mLJump to med 250 mL, IntraVENous, at 937.5 mL/hr, Administer over 16 Minutes, PRN, Other, Blood glucose LESS THAN 40 mg/dL and patient NOT ALERT or NPO, Starting on Thu11/08/23 at 2023, Repeat blood glucose in 15 minutes. If blood glucose remains LESS THAN 70 mg/dL, repeat treatment and recheck blood glucose in 15 minutes x 2. If using glycemic management system, dose as instructed per system. If blood glucose remains LESS THAN 70 mg/dL after 2 intravenous boluses start dextrose 10% at 100 mL/hour and notify provider. Group 4: ondansetron (ZOFRAN-ODT) disintegrating tablet 4 mgJump to med 4 mg, Oral, EVERY 8 HOURS PRN, Starting on 11/08/23 at 2019, Until Discontinued, Nausea, Vomiting Or ondansetron (ZOFRAN) injection 4 mgJump to med 4 mg, IntraVENous, EVERY 6 HOURS PRN, Starting on 11/08/23 at 2018, Until Discontinued, Nausea, Vomiting, Administer if oral route cannot be used. FOR RECORDS PERTAINING TO PATIENTS WHO ARE OR HAVE BEEN ENROLLED IN A CHEMICAL DEPENDENCY/SUBSTANCEABUSE PROGRAM, SOME INFORMATION MAY BE OMITTED. This clinical summary was aggregated from multiple sources. Caution should be exercised in using it in the provision of clinical care. This summary normalizes information from multiple sources, and as a consequence, information in this document may materially change the coding, format and clinical context of patient data. In addition, data may be omitted in some cases. CLINICAL DECISIONS SHOULD BE BASED ON THE PRIMARY CLINICAL RECORDS. [employer] [facility]. provides no warranty or guarantee of the accuracy or completeness of information in this document.
== END 2024-03-22 19:52 | disposition home or self-care (01) ==
LOC: SLEEP 19:52
DX: G47.33 Obstructive sleep apnea (adult) (pediatric) (principal); I10 Essential (primary) hypertension; E13.69 Other specified diabetes mellitus with other specified complication; R06.83 Snoring
CPT/HCPCS: 95810

== ENCOUNTER 2024-10-10 00:35 | Emergency (ER) | payer OTHER, SELFPAY ==
[2024-10-10] VITALS (21 sets, daily range): BP systolic 71–154; BP diastolic 51–85; PULSE 64–136; TEMP 36.8–38.5; O2SAT 90–98; BMI 26.8
--- OUTSIDE RECORDS SUMMARY | 2024-10-10 00:44 | XMS_ITS | CCD ---
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 Role Phone FAUSTO Raygoza Attending Provider Felisa Adams Unavailable ALEJANDRO VILLAGRAN Referring Unavailable [...] Provider UnavailAlejandro Allen MD Primary Care Provider Alejandro Villagran MD Primary Care Provider Unavailable Primary Care Provider UnavailHEATHER Forbes Attending Unavailable AVASTHI, STEVEN Referring Unavailable VILLAGRANALEJANDRO Primary Care Unavailable AVASTHI, STEVEN Attending Unavailable AVASTHI, STEVEN Referring Unavailable AVASTHI, STEVEN Attending Unavailable VILLAGRAN, ALEJANDRO A Primary Care Unavailable AVASTHI, STEVEN Referring Unavailable AVASTHI, STEVEN Referring Unavailable VILLAGRAN, ALEJANDRO A Primary Care Unavailable AVASTHI, STEVEN Attending Unavailable AVASTHI, STEVEN Referring Unavailable VILLAGRAN, ALEJANDRO A Primary Care Unavailable AVASTHI, STEVEN Attending Unavailable AL-HURANI, BAYAN TAYSEER Admitting Unavail able AL-HURANI, BAYAN TAYSEER Attending Unavail able MARIXA SAMANTHA Referring Unavailable VILLAGRAN, ALEJANDRO A Primary Care Unavailable ZANDER KRAMER Consulting Unavailable MUHAMMADEDUARDO JAIN E Consulting Unavailable WILL, MAXWELL Consulting Unavailable AVASTHI, STEVEN Consulting Unavailable KITA, LAURO Consulting Unavailable MARILUZKERON MARTINEZ Consulting Unavailable SHIRLEY MEEHAN Consulting Unavailable LUIS BENTLEY Consulting Unavailable DAQUAN UHDSON Consulting Unavailable KERON GHOSH Referring Unavailable VILLAGRAN, ALEJANDRO A Primary Care Unavailable KERON GHOSH Attending Unavailable Villagran DO, Alejandro A Primary Care Provider [phone] JM CALDERON Attending Unavailable YOANA, AHMAD F Attending Unavailable YOANA, AHMAD F Attending Unavailable YOANA, AHMAD F Referring Unavailable JULIUS CORONA Referring Unavailable LYNN MEREDITH Referring Unavailable EKWENNA, OBI Referring Unavailable EKWENNA, OBI Referring Unavailable HORANI, DOLORES Admitting Unavailable JET ROBERTS Attending Unavailable SAUL MARINO Referring Unavailable HORANI, DOLORES Admitting Unavailable HORANI, DOLORES Attending Unavailable EKWENNA, OBI Referring Unavailable EKWENNA, OBI Referring Unavailable ALAMKristenWALDO Attending Unavailable EKWENNA, OBI Referring Unavailable EKWENNA, OBI Referring Unavailable LYNN MEREDITH Referring Unavailable EKWENNA, OBI Referring Unavailable EKWENNA, OBI Attending Unavailable TOY MARTÍNEZ Attending Unavailable EKWENNA, OBI Referring Unavailable LYNN MEREDITH Referring Unavailable Allergies Allergy Classification Reported Allergen(s) Allergy Type Date of Onset Reaction(s) Facility (3 sources) sulfaSALAzine Drug Allergy Unknown [facility] Other (3 sources) Tolmetin Drug Allergy bleeding [facility] Other (16 sources) Aspirin; Translations: [ASPIRIN] Drug Allergy 1 Other, Other (See Comments) [facility] (16 sources) Ibuprofen; Translations: [IBUPROFEN] Drug Allergy 1 Other, Other (See Comments) [facility] (17 sources) amLODIPine; Translations: [AMLODIPINE] Drug Allergy 4 [facility] (14 sources) clopidogrel Drug Allergy 4 Other, Other (See Comments) [facility] Medications Current Medications Medication Drug Class(es) Dates Sig (Normalized) Sig (Original) alendronic acid 35 mg oral tablet (19 sources) Bisphosphonate take 1 tablet by mariia th every week alendronate (Fosamax) 35 MG tablet Take 1 tablet by mouth once a week Active take 1 tablet by mouth in the mo rning alendronate (FOSAMAX) 70 mg tablet Take 70 mg by mouth every 7 days. In a.m. with water on empty stomach, nothing else by mouth and remain upright for 30min Active alendronate (FOS AMAX) 35 MG tablet Take 1 tablet by mouth every 7 days Active Fosamax Active apixaban 5 mg oral tablet (17 sources) Factor Xa Inhibitor Start: 11-16-2023 End: 12-19-2023 take 1 tablet by mouth in the morning apixaban (Eliquis) 5 MG tablet Take 1 tablet by mouth in the morning and 1 tablet before bedtime. 11/16/2023 Active Start: 11-16-2023 take 2 tablets by mo uth twice daily, then take 1 tablet by mouth twice daily apixaban (ELIQUIS) 5 MG TABS tablet Take 2 tablets by mouth 2 times daily for 3 days, THEN 1 tablet 2 times daily. 60 tablet 11/16/2023 Active take 1 tablet by mariia th every twelve hours Eliquis 5 MG tablet Take 1 tablet by mouth every 12 hours. Active atorvastatin 40 mg oral tabl et (20 sources) HMG-CoA Reductase Inhibitor Start: 11-08-2023 take 1 tablet by mouth once linnea y atorvastatin (LIPITOR) 10 mg tablet Take 10 mg by mouth daily. Active bimatoprost 0.1 mg/ml ophthalmic solution (19 sources) Prostaglandin Analog take 1 drop(s) into the eye(s) at bedtime bimatoprost (Lumigan) 0.01 % ophthalmic solution Administer 1 drop into both eyes at bedtime Active take 1 drop(s) into the eye(s) once daily in the evening bimatoprost (LUMIGAN) 0.01 % SOLN ophthalmic drops Place 1 drop into both eyes nightly PM Active bimatoprost (Lum igan) 0.01 % Solution Apply to eye. Active Lumigan Active Calcium (3 sources) Phosphate Binder, Calcium Calcium Active calcium carbonate 1500 mg oral tablet (1 source) take 1 tablet by mouth twice daily at mealtime calcium carbonate (OS-CARLOS) 600 mg (1,500 mg) tablet Take 600 mg by mouth 2 (two) times a day with meals. Active calcium citrate 950 mg oral tablet (2 sources) Calcium citrate 950 (200 Ca) MG tablet Take by mouth daily. Active calcium citrate 1500 mg / cholecalciferol 200 unt oral tablet (13 sources) Vitamin D take 1 tablet by mouth once in the morning Calcium Citrate-Vitamin D 315-5 MG-MCG tablet Take 1 tablet by mouth in the morning. Active take 1 tablet by mouth once linnea y calcium citrate-vitamin D (CITRACAL+D) 315-5 MG-MCG TABS per tablet Take 1 tablet by mouth daily Active cephalexin 500 mg oral capsule (3 [...] Glucose Sensor (FREESTYLE KVNG 3 SENSOR) MISC (4 sources) Start: 12-24-2023 Continuous Glucose Sensor (FREESTYLE KVNG 3 SENSOR) MISC USE DIRECTED AND CHANGE EVERY 14 DAYS 12/24/2023 Active Cyclosporin 0.05 % Emulsion ophthalmic suspension (2 sources) take 1 drop(s) into the eye(s) twice daily Cyclosporin 0.05 % Emulsion ophthalmic suspension 1 drop 2 times daily. Active cycloSPORINE 0.5 mg/ml ophthalmic suspension (4 sources) Calcineurin Inhibitor Immunosuppressant take 1 drop(s) into the eye(s) twice daily cycloSPORINE (RESTASIS) 0.05 % ophthalmic emulsion Administer 1 drop to both eyes 2 (two) times a day. Active Restasis Active cycloSPORINE (Restasis) 0.05 % ophthalmic emulsion (9 sources) take 1 drop(s) into the eye(s) every twelve hours cycloSPORINE (Restasis) 0.05 % ophthalmic emulsion Administer 1 drop into both eyes every 12 (twelve) hours Active cycloSPORINE (RESTASIS) 0.05 % ophthalmic emulsion (4 sources) take 1 drop(s) into the eye(s) twice daily cycloSPORINE (RESTASIS) 0.05 % ophthalmic emulsion 1 drop 2 times daily Active docosahexaenoic acid 120 mg / eicosapentaenoic acid 180 mg oral capsule (14 sources) take 2 capsules by mouth in the morning omega-3 (Fish Oil) 1000 MG capsule Take 2 capsules by mouth in the morning and 2 capsules before bedtime. Active take 1 capsule by mouth in the m orning [place]-3 Fatty Acids (OMEGA-3 FISH OIL) 1000 MG CAPS Take 2,000 mg by mouth in the morning and 2,000 mg in the evening. Active empagliflozin 25 mg oral tablet (5 sources) Sodium-Glucose Cotransporter 2 Inhibitor Start: 06-14-2024 End: 12-11-2024 take 1 tablet by mouth once daily empagliflozin (Jardiance) 25 MG Indications: Type 2 diabetes mellitus with hyperglycemia, with long-term current use of insulin (HCC) Take 1 tablet (25 mg) by mouth Daily 90 tablet 1 06/14/2024 12/11/2024 Active everolimus 0.75 mg oral tablet (20 sources) Kinase Inhibitor, mTOR Inhibitor Immunosuppressant Start: 11-09-2023 take 1 tablet by mouth twice daily everolimus (Zortress) 0.75 MG tablet Take 1 tablet by mouth 2 (two) times a day. 11/09/2023 Active take 1 tablet by mariia th every twelve hours everolimus 0.75 MG tablet Take 1 tablet by mouth every 12 hours. Active Everolimus Activ e famotidine 20 mg oral tablet (19 sources) Histamine-2 Receptor Antagonist take 1 tablet by mouth in the morning famotidine (Pepcid) 20 MG tablet Take 1 tablet by mouth in the morning and 1 tablet before bedtime. Active Pepcid Active febuxostat 40 mg oral tablet (20 sources) Xanthine Oxidase Inhibitor take 1 tablet by mouth once daily in the morning febuxostat (Uloric) 40 MG tablet Take 1 tablet by mouth Daily in the Morning Active febuxostat (ULOR IC ORAL) Take by mouth. Active Uloric Active ferrous sulfate (9 sources) take 1 tablet by mouth in the morning Ferrous Sulfate (IRON PO) Take 1 tablet by mouth in the morning. Active Fish Oils (3 sources) Fish Oil Active glucagon (rdna) 1 mg injection (1 source) Antihypoglycemic Agent Start: 11-08-19 hydrALAZINE hydrochloride 25 mg oral tablet (6 sources) Arteriolar Vasodilator Start: 02-10-20 take 1 tablet by mouth twice daily hydrALAZINE (APRESOLINE) 25 MG tablet TAKE 1 TABLET BY MOUTH TWICE DAILY AT 8:00AM AND 2:00PM 30 tablet 3 02/10/2024 Active take 1 tablet by mariia th three times daily hydrALAZINE 25 MG tablet Take 1 tablet b y mouth 3 times daily. Active Injection Device for Insulin (INPEN 044-PVSH-QPRTSNN-FIASP) KURT (4 sources) Injection Device for Insulin (INPEN 930-VFFR-[id number]-FIASP) KURT 10 Units by Does not apply route Daily with supper Active 3 ml insulin aspart, human 1 00 unt/ml pen injector (4 sources) Insulin Analog Start: 025 End: 026 insulin aspart (NovoLOG FLEXPEN) 100 UNIT/ML pen Indications: Type 2 diabetes mellitus with hyperglycemia, with long-term current use of insulin (HCC) Inject 8 Units under the skin in the morning and 8 Units at noon and 8 Units in the evening. Inject before meals. 21.6 mL 1 10/04/2024 04/02/2025 Active inject 10 [IU] by barton bcutaneous injection at bedtime Insulin Aspart 100 UNIT/ML injection Inject 10 Units under the skin before meals & at bedtime. Active insulin detemir (3 sources) Insulin Analog Levemir Active 3 ml insulin glargine 300 unt/ml pen injector (16 sources) Insulin Analog Start: 04-14-2023 insulin glargi ne (Toujeo Max SoloStar) 300 UNIT/ML injection Inject 55 Units under the skin Daily 04/14/2023 Active Insulin Glargine , 2 Unit Dial, (TOUJEO MAX SOLOSTAR) 300 UNIT/ML SOPN Inject 55 Units into the skin daily Active inject 56 [IU] by barton bcutaneous injection at bedtime Insulin glargine 100 UNIT/ML vial Inject 56 Units under the skin At bedtime. In the morning Active insulin lispro 100 unt/ml injectable solution (2 sources) Insulin Analog Start: 11-08-2023 latanoprost 0.05 mg/ml ophthalmic solution (1 source) Prostaglandin Analog take 1 drop(s) into the eye(s) once daily latanoprost (XALATAN) 0.005 % ophthalmic solution 1 drop nightly. Active levothyroxine sodium 0.125 mg oral tablet (20 sources) l-Thyroxine Start: 11-17-2023 take 1 tablet by mouth once daily levothyroxine (Synthroid, Levoxyl) 125 MCG tablet Take 1 tablet by mouth Daily 11/17/2023 Active take 1 tablet by mariia th once daily levothyroxine (SYNTHROID, LEVOTHROID) 75 MCG tablet Take 75 mcg by mouth daily. Active End: 11-16-2023 Synthroid 135 mc g 1 tablet every morning on an empty stomach Orally Once a day for 30 day(s) Active linagliptin 5 mg oral tablet (16 sources) Dipeptidyl Peptidase 4 Inhibitor Start: 01-01-2024 take 1 tablet by mouth once daily linaGLIPtin (Tradjenta) 5 MG tablet Indications: Type 2 diabetes mellitus with hyperglycemia, with long-term current use of insulin (HCC) TAKE 1 TABLET BY MOUTH DAILY 30 tablet 01/01/2024 Active take 1 tablet by mariia th every twenty-four hours linaGLIPtin (Tradjenta) 5 MG tablet Take 1 tablet by mouth every 24 hours. Active loratadine 10 mg oral capsule (17 sources) take 1 capsule by mo uth once daily Loratadine 10 MG capsule Take 1 capsule by mouth Daily Active Claritin Active Magnesium (3 sources) Magnesium Active magnesium oxide 400 mg oral tablet (16 sources) take 1 tablet by mouth at bedtime magnesium oxide (Mag-Ox) 400 (240 Mg) MG tablet Take 400 mg by mouth at bedtime Active metoprolol tartrate 25 mg oral tablet (20 sources) beta-Adrenergic Jeana Start: 11-09-2023 take 1 tablet by mouth once linnea y Metoprolol Succinate 25 MG one tablet Orally Once a day for 90 day(s) Not-Taking Metoprolol-HCTZ ER (3 sources) Metoprolol-HCTZ ER Active Multiple Vitamins-Minerals (Multivitamin w/ minerals, THERAPEUTIC-M,) tablet (2 sources) Multiple Vitamins-Minerals (Multivitamin w/ minerals, THERAPEUTIC-M,) tablet Take by mouth daily. Active Multiple Vitamins-Minerals (THERAPEUTIC MULTIVITAMIN-MINERALS ) tablet (4 sources) take 1 tablet by mouth once daily Multiple Vitamins-Minerals (THERAPEUTIC MULTIVITAMIN-MINERALS ) tablet Take 1 tablet by mouth daily Active cbivfevj-ihnt-IQ-calc ium &mins (THERAGRAN-M) 9 mg iron-400 mcg tablet (1 source) sehzvcgl-jgmk-IF -calc ium &mins (THERAGRAN-M) 9 mg iron-400 mcg tablet Take 1 tablet by mouth daily. Active Multivitamin preparation (3 sources) Multivitamin Act ted mycophenolic acid 180 mg delayed release oral tablet (1 source) Antimetabolite Immunosuppressant take 1 tablet by mouth twice daily mycophenolate (MYFORTIC) 180 mg EC tablet Take by mouth 2 (two) times a day. Active omega-3 acid ethyl esters (penitentiary) 1000 mg oral capsule (2 sources) take 2 capsules by mouth twice daily omega-3 acid ethyl esters 1 g capsule Take 2 capsules by mouth 2 times daily. Active omega-3 fatty acids-fish oil (FISH OIL) 300-1,000 mg capsule (1 source) take 1 capsule by mouth once daily omega-3 fatty acids-fish oil (FISH OIL) 300-1,000 mg capsule Take 2 g by mouth daily. Active oxybutynin chloride 5 mg oral tablet (5 sources) Cholinergic Muscarinic Antagonist Start: 2023 End: 2024 take 1 tablet by mouth three times daily oxyBUTYnin (DITROPAN) 5 MG tablet Take 1 tablet by mouth 3 times daily 05/22/2023 Active perflutren lipid microspheres (DEFINITY) injection 1.5 mL (1 source) Start: 2023 phenazopyridine hydrochloride 200 mg oral tablet (1 source) Start: 2021 take 1 tablet by mouth every eight hours Pyridium 200 MG 1 tablet after meals Orally Three times a day for 2 day(s) Aug, Active polyethylene glycol 3350 32803 mg powder for oral solution (1 source) Osmotic Laxative Start: 2023 polyethylene glycol 400 4 mg/ml / propylene glycol 3 mg/ml ophthalmic solution (19 sources) take 1 drop(s) into the eye(s) every twenty-four hours as needed Polyethyl Glycol-Propyl Glycol 0.4-0.3 % solution Administer 1 drop into affected eye(s) Daily as needed Active polyethyl glycol -propyl glycol 0.4-0.3 % (SYSTANE) 0.4-0.3 % ophthalmic solution 1 drop as needed for Dry Eyes Active Polyethyl Glycol -Propyl Glycol (Systane) 0.4-0.3 % Solution ophthalmic solution Active Systane Active predniSONE 20 mg oral tablet (20 sources) Start: 11-09-2023 take 1 tablet by mouth once linnea y predniSONE (Deltasone) 10 MG tablet Take 1 tablet by mouth Daily Active take 1 tablet by mariia th once daily at breakfast predniSONE (DELTASONE) 1 mg tablet Take 1 mg by mouth daily with breakfast. Active take 1 tablet by mouth once linnea y predniSONE 5 MG one tablet Orally once a day Active Probiotic (1 source) Probiotic Active raNITIdine 75 mg oral tablet (1 source) Histamine-2 Receptor Antagonist take 1 tablet by mouth twice daily raNITIdine (ZANTAC) 75 mg tablet Take 75 mg by mouth 2 (two) times a day. Active sodium bicarbonate 650 mg oral tablet (18 sources) Start: take 1 tablet by mouth in the morning sodium bicarbonate 650 MG tablet Take 1 tablet by mouth in the morning and 1 tablet before bedtime. 11/16/2023 Active Start: 11-13-2023 End: 11-14-2023 take 1 tablet by mariia th four times daily Sodium bicarbonate 650 MG tablet Take 1 tablet by mouth 4 times daily. Active 5 ml sodium chloride 9 mg/ml injection (6 sources) Start: 11-10-2023 Start: 11-08-2023 Start: 11-08-2023 tacrolimus 0.5 mg oral capsule (20 sources) Calcineurin Inhibitor Immunosuppressant Start: 11-09-2023 take 1 capsule by mouth twice daily tacrolimus (PROGRAF) 0.5 MG capsule Take 1 capsule by mouth 2 times daily 12/19/2023 Active take 1 capsule by mouth in the m orning tacrolimus (Prograf) 5 MG capsule Take 1 capsule by mouth in the morning and 1 capsule before bedtime. Active take 1 capsule by mouth once tac rolimus (PROGRAF) 1 mg capsule Take 1 mg by mouth every 12 (twelve) hours. Active take 1.5 tablets by mouth in the morning, then take 1 tablet by mouth twice daily in the evening Prograf 1 MG 1.5 tablets in the AM, 1 tablet in the evening Orally twice a day Active therapeutic multivitamin-minerals (Theragran-M) tablet (9 sources) take 1 tablet by mouth once daily therapeutic multivitamin-minerals (Theragran-M) tablet Take 1 tablet by mouth Daily Active (1 source) (1 source) (1 source) (1 source) Start: Completed/Discontinued Medications Medication Drug Class(es) Dates Sig (Normalized) Sig (Original) 1 ml epoetin emory 89368 unt/ml injection (3 sources) Erythropoiesis-sti mulating Agent Procrit 20419 UNIT/ML 10,000 units Injection not taking Not-Taking [...] 02-08-2016 Depo-Medrol 40 mg Jan, 40 mg technetium 99m DTPA solution 3 millicurie (1 source) Start: 06-09-2024 End: 06-09-2024 3 millicurie, IntraVENous, IMG ONCE PRN, 1 dose, Starting on Yvette 06/09/24 at 1431, Until Yvette 06/09/24 at 1410, Other technetium albumin aggregated (MAA) solution 6 millicurie (1 source) Start: 06-09-2024 End: 06-09-2024 6 millicurie, IntraVENous, IMG ONCE PRN, 1 dose, Starting on Yvette 06/09/24 at 1428, Until Yvette 06/09/24 at 1425, Other (9 sources) Start: 11-12-2023 End: 11-13-2023 Start: [...] Date Documented Date Episodic/Chronic Acute myocardial infarction (6 sources) Myocardial infarction; Translations: [Non-ST elevation (NSTEMI) myocardial infarction] Onset: 11-08-2023 11-08-2023 Chronic Administrative/social admission (6 sources) Patient encounter status; Translations: [Dietary counseling and surveillance] 12-15-2023 Episodic Cancer of bladder (12 sources) Malignant tumor of urinary bladder; Translations: [Malignant neoplasm of bladder, unspecified] Onset: 10-20-2023 11-08-2023 Chronic Cardiac and circulatory congenital anomalies (6 sources) Cardiac shunt; Translations: [Other specified congenital malformations of heart] Onset: 03-29-2024 5 Chronic Chronic kidney disease (20 sources) Chronic kidney disease stage 4; Translations: [Chronic kidney disease, stage IV] Onset: 10-19-2021 11-13-2023 Chronic Congestive heart failure; nonhypertensive (6 sources) Biventricular congestive heart failure; Translations: [Biventricular heart failure] Onset: 11-09-2023 11-09-2023 Chronic Deficiency and other anemia (3 sources) Anemia of chronic disease; Translations: [Anemia of other chronic disease] Chronic Deficiency and other anemia (2 sources) Anemia in chronic kidney disease; Translations: [Anemia in chronic kidney disease] Onset: 09-22-2024 Chronic Diabetes mellitus with complications (8 sources) Hyperglycemia due to type 2 diabetes mellitus; Translations: [Type 2 diabetes mellitus with hyperglycemia] Onset: 03-29-2024 12-15-2023 Chronic Diabetes mellitus without complication (10 sources) Diabetes mellitus; Translations: [Type 2 diabetes mellitus without complications] Onset: 03-29-2024 Resolved: 03-29-2024 11-08-2023 Chronic Diabetes mellitus without complication (2 sources) Impaired fasting glucose; Translations: [Impaired fasting glucose] Onset: 08-19-2024 Episodic Diseases of white blood cells (6 sources) Leukocytosis; Translations: [Elevated white blood cell count, unspecified] Onset: 11-08-2023 11-08-2023 Chronic Disorders of lipid metabolism (9 sources) Pure hypercholesterolemia; Translations: [Pure hypercholesterolemia] 12-15-2023 Chronic Essential hypertension (13 sources) Hypertensive disorder; Translations: [Hypertension] Onset: 10-19-2021 11-08-2023 Chronic Fluid and electrolyte disorders (8 sources) Metabolic acidosis; Translations: [Metabolic acidosis] Onset: 11-09-2023 11-09-2023 Episodic Immunity disorders (6 sources) Immunosuppression; Translations: [Immunodeficiency, unspecified] 11-08-2023 Chronic Nutritional deficiencies (6 sources) Vitamin D deficiency; Translations: [Vitamin D deficiency, unspecified] 12-15-2023 Chronic Other aftercare (2 sources) Encounter for aftercare following kidney transplant; Translations: [Encounter for aftercare following kidney transplant] Onset: 09-22-2024 Chronic Other aftercare (6 sources) Long-term current use of insulin; Translations: [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 terminal operator (current) use of insulin] 12-15-2023 Episodic Other aftercare (6 sources) Long-term current use of systemic steroid; Translations: [keno terminal operator (current) use of systemic steroids] 12-15-2023 Episodic Other aftercare (2 sources) Other detention (current) drug therapy; Translations: [Other detention (current) drug therapy] Onset: 09-22-2024 Episodic Other and ill-defined heart disease (4 sources) Left ventricular diastolic dysfunction ; Translations: [Heart disease, unspecified] Onset: 03-29-2024 03-29-2024 Chronic Other and ill-defined heart disease (2 sources) Heart disease, unspecified; Translations: [Heart disease, unspecified] Onset: 03-29-2024 Chronic Other endocrine disorders (6 sources) Hypoglycemia; Translations: [Hypoglycemia, unspecified] Onset: 11-09-2023 11-09-2023 Chronic Other screening for suspected conditions (not mental disorders or infectious disease) (10 sources) D-dimer above reference range; Translations: [Other specified abnormal findings of blood chemistry] Onset: 11-08-2023 11-08-2023 Episodic Other upper respiratory infections (3 sources) Sinusitis; Translations: [Chronic sinusitis, unspecified] Chronic Peripheral and visceral atherosclerosis (8 sources) Atherosclerosis of aorta; Translations: [Atherosclerosis of aorta] Onset: 11-09-2023 11-09-2023 Chronic Pulmonary heart disease (20 sources) Saddle embolus of pulmonary artery; Translations: [Saddle embolus of pulmonary artery with acute cor pulmonale] Onset: 11-09-2023 02-15-2024 Chronic Residual codes; unclassified (3 sources) H/O: tissue/organ recipient; Translations: [Organ or tissue transplant, unspecified] Chronic Residual codes; unclassified (2 sources) Finding related to sleep; Translations: [Sleep apnea, unspecified] 03-29-2024 Chronic Residual codes; unclassified (2 sources) Sleep apnea, unspecified; Translations: [Sleep apnea, unspecified] Onset: 03-29-2024 Chronic Respiratory failure; insufficiency; arrest (adult) (6 sources) Zyllf-fm-[id number] respiratory failure; Translations: [Acute and chronic respiratory failure with hypoxia] Onset: 11-08-2023 11-16-2023 Chronic Thyroid disorders (13 sources) Hypothyroidism; Translations: [Hypothyroidism] Onset: 11-25-2021 Chronic Unclassified (2 sources) Procedure; Translations: [Procedure] Onset: 10-16-2023 Urinary tract infections (4 sources) Acute cystitis with hematuria; Translations: [Urinary tract infection, site not specified] Onset: 05-23-2021 Resolved: 09-09-2021 Episodic Past or Other Problems Problem Classification Problem Date Documented Da te Episodic/Chronic Acute and unspecified renal failure (8 sources) Acute renal failure syndrome; Translations: [Acute kidney failure, unspecified] Onset: 11-08-2023 11-08-2023 Episodic Acute bronchitis (2 sources) Acute bronchiolitis, unspecified; Translations: [Acute bronchiolitis, unspecified] Onset: 10-19-2023 Episodic Genitourinary symptoms and ill-defined conditions (2 sources) Dysuria; Translations: [Hematuria, unspecified] Onset: 09-09-2021 Resolved: 09-09-2021 Episodic Malaise and fatigue (6 sources) Asthenia; Translations: [Other malaise] Onset: 11-13-2023 11-13-2023 Episodic Other circulatory disease (6 sources) Low blood pressure; Translations: [Hypotension, unspecified] Onset: 11-09-2023 11-09-2023 Episodic Other lower respiratory disease (8 sources) Dyspnea; Translations: [Shortness of breath] Onset: [...] [Other forms of dyspnea] Onset: 10-19-2023 Episodic Lynne-; endo-; and myocarditis; cardiomyopathy (except that caused by tuberculosis or sexually transmitted disease) (6 sources) Pericardial effusion; Translations: [Pericardial effusion] Onset: 11-09-2023 11-09-2023 Episodic Pneumonia (except that caused by tuberculosis or sexually transmitted disease) (8 sources) Bilateral pneumonia; Translations: [Pneumonia, unspecified organism] Onset: 10-19-2023 11-09-2023 Episodic Pulmonary heart disease (7 sources) Pulmonary embolism; Translations: [Other pulmonary embolism without acute cor pulmonale] Onset: 11-10-2023 11-10-2023 Episodic Respiratory failure; insufficiency; arrest (adult) (3 sources) Acute respiratory failure; Translations: [Acute respiratory failure, unspecified whether with hypoxia or hypercapnia] Onset: 11-08-2023 11-09-2023 Episodic Results Test Name Value Interpretation Reference Range Facility Glucose (Bld) [Mass/Vol]Orde red By: Renata Fonseca on 10-04-2024 Glucose Blood, POC 220 mg/dL [facility] Abstracton 10-03-2024 Abstract Normal [facility] Documentationon 09-27-2024 Documentation Normal [facility] 36on 09-23-2024 36 Normal [facility] 36on 09-22-2024 36 Normal [facility] Follow-Upon 09-22-2024 Follow-Up Normal [facility] Labon 09-15-2024 Lab Normal [facility] BILIRUBIN, DIRECTon 09-15-19 Magnesium [Mass/Vol] 0.1 mg/dL Normal 0-0.2 [facility] Comment on above: Performed By: #### L [id number] ####[facility] (BEAKER)[address] [place] [address] CBC WITH AUTO DIFFERENTIALon 09-14-2024 Basophils (Bld) [#/Vol] 0.04 10*3/uL Normal 0.00-0.20 [facility] Comment on above: Performed By: #### L [id number] ####[facility] (BEAKER)[address] [place] [address] Basophils/100 WBC (Bld) 0.5 % Normal 0.0-1.0 [facility] Comment on above: Performed By: #### L [id number] ####[facility] (BEAKER)[address] [place] [address] Eosinophils (Bld) [#/Vol] 0.18 10*3/uL Normal 0.00-0.50 [facility] Comment on above: Performed By: #### L [id number] ####[facility] (BEAKER)[address] [place] [address] Eosinophils/100 WBC (Bld) 2.4 % Normal 0.0-6.0 [facility] Comment on above: Performed By: #### L [id number] ####[facility] ([facility])[address] [place] [address] Erythrocyte distribution width (RBC) [Ratio] 16.4 % High 11.5-15.0 [facility] Comment on above: Performed By: #### L [id number] ####[facility] ([facility])[address] [place] [address] ERYTHROCYTE MEAN CORPUSCULAR HEMOGLOBIN CONCENTRATION (G/DL) BY AUTOMATED 29.2 g/dL Low 32.0-35.0 [facility] Comment on above: Performed By: #### L [id number] ####[facility] ([facility])[address] [place] [address] Hematocrit (Bld) [Volume fraction] 27.7 % Low 36.0-45.0 [facility] Comment on above: Performed By: #### L [id number] ####[facility] ([facility])[address] [place] [address] Hemoglobin (Bld) [Mass/Vol] 8.1 g/dL Low 12.0-15.0 [facility] Comment on above: Performed By: #### L [id number] ####[facility] ([facility])[address] [place] [address] Immature granulocytes (Bld) [#/Vol] 0.02 10*3/uL Normal 0.00-0.20 [facility] Comment on above: Performed By: #### L [id number] ####[facility] (BEAKER)[address] [place] [address] Immature granulocytes/100 WBC (Bld) 0.3 % Normal 0.0-1.0 [facility] Comment on above: Performed By: #### L [id number] ####[facility] ([facility])[address] [place] [address] Lymphocytes (Bld) [#/Vol] 2.72 10*3/uL Normal 1.20-4.00 [facility] Comment on above: Performed By: #### L [id number] ####[facility] ([facility])[address] [place] [address] Lymphocytes/100 WBC (Bld) 36.0 % Normal 20.0-45.0 [facility] Comment on above: Performed By: #### L [id number] ####[facility] ([facility])[address] [place] [address] MCH (RBC) [Entitic mass] 22.0 pg Low 27.0-33.0 [facility] Comment on above: Performed By: #### L [id number] ####[facility] ([facility])[address] [place] [address] MCV (RBC) [Entitic vol] 75.3 fL Low 82.0-98.0 [facility] Comment on above: Performed By: #### L [id number] ####[facility] ([facility])[address] [place] [address] Monocytes (Bld) [#/Vol] 1.02 10*3/uL High 0.10-1.00 [facility] Comment on above: Performed By: #### L [id number] ####[facility] ([facility])[address] [place] [address] Monocytes/100 WBC (Bld) 13.5 % High 5.0-12.0 [facility] Comment on above: Performed By: #### L [id number] ####[facility] ([facility])[address] [place] [address] Neutrophils (Bld) [#/Vol] 3.57 10*3/uL Normal 1.60-7.60 [facility] Comment on above: Performed By: #### L [id number] ####[facility] ([facility])[address] [place] [address] Neutrophils/100 WBC (Bld) 47.3 % Normal 40.0-72.0 [facility] Comment on above: Performed By: #### L [id number] ####[facility] ([facility])[address] [place] [address] NRBC (PER 100 WBCS) BY AUTOMATED COUNT 0.0 % Normal 0 [facility] Comment on above: Performed By: #### L [id number] ####[facility] ([facility])[address] [place] [address] PLATELETS (10*3/UL) IN BLOOD AUTOMATED COUNT 329 10*3/uL Normal 150-400 [facility] Comment on above: Performed By: #### L [id number] ####[facility] ([facility])[address] [place] [address] RBC (Bld) [#/Vol] 3.68 10*6/uL Low 3.80-5.00 [facility] Comment on above: Performed By: #### L [id number] ####[facility] ([facility])[address] [place] [address] WBC (Bld) [#/Vol] 7.55 10*3/uL Normal 4.00-10.60 [facility] Comment on above: Performed By: #### L [id number] ####[facility] ([facility])[address] [place] [address] COMPREHENSIVE METABOLIC PANE Macario 09-14-2024 Albumin [Mass/Vol] 4.0 g/dL Normal 3.5-5.7 [facility] Comment on above: Performed By: #### L [id number] ####[facility] ([facility])[address] [place] [address] ALP [Catalytic activity/Vol] 46 U/L Normal 34-104 [facility] Comment on above: Performed By: #### L [id number] ####[facility] ([facility])[address] [place] [address] ALT [Catalytic activity/Vol] 16 U/L Normal 7-52 [facility] Comment on above: Performed By: #### L [id number] ####[facility] ([facility])[address] [place] [address] Anion gap [Moles/Vol] 11 mmol/L Normal 7-20 [facility] Comment on above: Performed By: #### L [id number] ####[facility] ([facility])[address] [place] [address] AST [Catalytic activity/Vol] 19 U/L Normal 13-39 [facility] Comment on above: Performed By: #### L [id number] ####[facility] ([facility])[address] [place] [address] Bilirubin [Mass/Vol] 0.4 mg/dL Normal 0.3-1.0 [facility] Comment on above: Performed By: #### L [id number] ####[facility] ([facility])[address] [place] [address] Calcium [Mass/Vol] 9.8 mg/dL Normal 8.6-10.3 [facility] Comment on above: Performed By: #### L [id number] ####[facility] ([facility])[address] [place] [address] Chloride [Moles/Vol] 109 mmol/L High 98-107 [facility] Comment on above: Performed By: #### L [id number] ####[facility] ([facility])[address] [place] [address] CO2 [Moles/Vol] 25 mmol/L Normal 21-31 [facility] Comment on above: Performed By: #### L [id number] ####[facility] ([facility])[address] [place] [address] Creatinine [Mass/Vol] 2.72 mg/dL High 0.60-1.20 [facility] Comment on above: Performed By: #### L [id number] ####[facility] ([facility])[address] [place] [address] GLOMERULAR FILTRATION RATE ML/MIN/1.73 SQ M.PREDICTED 19.1 mL/min/1.73m*2 Low >60.0 [facility] Comment on above: Result Comment: [facility]???s estimated glomerular filtration rate (eGFR) will [...] of individuals. Performed By: #### L [id number] ####[facility] ([facility])[address] [place] [address] Glucose [Mass/Vol] 57 mg/dL Low 70-100 [facility] Comment on above: Performed By: #### L [id number] ####[facility] ([facility])[address] [place] [address] Potassium [Moles/Vol] 3.6 mmol/L Normal 3.5-5.1 [facility] Comment on above: Performed By: #### L [id number] ####[facility] ([facility])[address] [place] [address] Protein [Mass/Vol] 6.4 g/dL Normal 6.0-8.3 [facility] Comment on above: Performed By: #### L [id number] ####[facility] ([facility])[address] [place] [address] Sodium [Moles/Vol] 141 mmol/L Normal 136-145 [facility] Comment on above: Performed By: #### L [id number] ####[facility] ([facility])[address] [place] [address] Urea nitrogen [Mass/Vol] 43 mg/dL High 7-25 [facility] Comment on above: Performed By: #### L [id number] ####[facility] ([facility])[address] [place] [address] UREA NITROGEN/CREATININE (MASS RATIO) IN SER/PLAS 15.8 Normal [facility] Comment on above: Performed By: #### L [id number] ####[facility] ([facility])[address] [place] [address] Documentationon 09-14-2024 Documentation Normal [facility] Labon 09-14-2024 Lab Normal [facility] MAGNESIUMon 09-14-2024 Magnesium [Mass/Vol] 2.0 mg/dL Normal 1.9-2.7 [facility] Comment on above: Performed By: #### L [id number] ####[facility] ([facility])[address] [place] [address] Orders Onlyon 09-14-2024 Orders Only Normal [facility] PHOSPHORUSon 09-14-2024 Magnesium [Mass/Vol] 3.8 mg/dL Normal 2.5-5.0 [facility] Comment on above: Performed By: #### L [id number] ####[facility] ([facility])[address] [place] [address] SIROLIMUS LEVELon 09-14-2024 SIROLIMUS (NG/ML) IN BLOOD 6.0 ng/mL Normal [facility] Comment on above: Performed By: #### L [id number] ####[facility] ([facility])[address] [place] [address] TACROLIMUS LEVELon Tacrolimus (Bld) [Mass/Vol] 3.0 ng/mL Low 5.0-20.0 [facility] Comment on above: Result Comment: The [employer] Tacrolimus assay is a delayed one-step immunoassay for the quantitative determination of tacrolimus in human whole blood using the chemiluminescent microparticle immunoassay (CMIA) technology with flexible assay protocols, referred to as Chemiflex. Performed By: #### L [id number] ####[facility] ([facility])[address] [place] [address] URIC ACIDon 09-14-2024 Magnesium [Mass/Vol] 2.7 mg/dL Normal 2.3-6.6 [facility] Comment on above: Performed By: #### L [id number] ####[facility] ([facility])[address] [place] [address] 36on 09-07-2024 36 TC reviewed patient Sirolimus level of 11.1 and tac of 5.[address] Boyd, No med changes made but wants her to repeat he labs in a week. TC LVM detailing above and if there are questions to call the clinic. Minerva Vences, ELIAZ Normal [facility] APTTon 09-07-2024 ACTIVATED PARTIAL THROMBOPLASTIN TIME IN PPP BY COAGULATION ASSAY 26.1 Seconds Normal 25.0-35.0 [facility] Comment on above: Result Comment: Clin ical significance of the APTT is questionable in the presence of heparin. Performed By: #### L [id number] ####[facility] ([facility])[address] [place] [address] CBC WITH AUTO DIFFERENTIALon 09-07-2024 Erythrocyte distribution width (RBC) [Ratio] 16.0 % High 11.5-15.0 [facility] Comment on above: Performed By: #### L [id number] ####[facility] ([facility])[address] [place] [address] ERYTHROCYTE MEAN CORPUSCULAR HEMOGLOBIN CONCENTRATION (G/DL) BY AUTOMATED 28.6 g/dL Low 32.0-35.0 [facility] Comment on above: Performed By: #### L [id number] ####[facility] ([facility])[address] [place] [address] Hematocrit (Bld) [Volume fraction] 29.4 % Low 36.0-45.0 [facility] Comment on above: Performed By: #### L [id number] ####[facility] ([facility])[address] [place] [address] Hemoglobin (Bld) [Mass/Vol] 8.4 g/dL Low 12.0-15.0 [facility] Comment on above: Performed By: #### L [id number] ####[facility] ([facility])[address] [place] [address] MCH (RBC) [Entitic mass] 21.6 pg Low 27.0-33.0 [facility] Comment on above: Performed By: #### L [id number] ####[facility] ([facility])[address] [place] [address] MCV (RBC) [Entitic vol] 75.6 fL Low 82.0-98.0 [facility] Comment on above: Performed By: #### L [id number] ####[facility] ([facility])[address] [place] [address] NRBC (PER 100 WBCS) BY AUTOMATED COUNT 0.0 % Normal 0 [facility] Comment on above: Performed By: #### L [id number] ####[facility] ([facility])[address] [place] [address] PLATELETS (10*3/UL) IN BLOOD AUTOMATED COUNT 374 10*3/uL Normal 150-400 [facility] Comment on above: Performed By: #### L [id number] ####[facility] ([facility])[address] [place] [address] RBC (Bld) [#/Vol] 3.89 10*6/uL Normal 3.80-5.00 [facility] Comment on above: Performed By: #### L [id number] ####[facility] ([facility])[address] [place] [address] WBC (Bld) [#/Vol] 7.40 10*3/uL Normal 4.00-10.60 [facility] Comment on above: Performed By: #### L [id number] ####[facility] ([facility])[address] [place] [address] CMV DNA, QUANTITATIVE, NAAT, PLASMAon 09-07-2024 CMV QNT BY NAAT, PLASMA INTERP Not detected Normal Not Detected [facility] Comment on above: Result Comment: INTE RPRETIVE INFORMATION: CMV by Quantitative NAAT, PlasmaThe quantitative range of this test is 1.54 - 7.00 log IU/mL (34.5- 10,000,000 IU/mL).An interpretation of Not Detected does not rule out the presenceof inhibitors or CMV DNA concentration below the level ofdetection of the assay. Care should be taken in the interpretationof any single viral load determination.International standardization has improved comparability of assayresults across laboratories, but discrepancies still exist due tocommutability issues with the standard.Performed By: [facility] [place], [place] [address] Director: Young Lopez MD, PhDCLIA Number: [id number] Performed By: #### L [id number] ####[facility] ([facility])[address] [place] [address] CMV QNT BY NAAT, PLASMA IU/ML Not detected Normal [facility] Comment on above: Performed By: #### L [id number] ####[facility] ([facility])[address] [place] [address] CMV QNT BY NAAT, PLASMA LOG IU/ML Not detected Normal [facility] Comment on above: Performed By: #### L [id number] ####[facility] ([facility])[address] [place] [address] COMPREHENSIVE METABOLIC PANE Macario 09-07-2024 Albumin [Mass/Vol] 4.1 g/dL Normal 3.5-5.7 [facility] Comment on above: Performed By: #### L [id number] ####[facility] ([facility])[address] [place] [address] ALP [Catalytic activity/Vol] 52 U/L Normal 34-104 [facility] Comment on above: Performed By: #### L [id number] ####[facility] ([facility])[address] [place] [address] ALT [Catalytic activity/Vol] 16 U/L Normal 7-52 [facility] Comment on above: Performed By: #### L [id number] ####[facility] ([facility])[address] [place] [address] Anion gap [Moles/Vol] 13 mmol/L Normal 7-20 [facility] Comment on above: Performed By: #### L [id number] ####[facility] ([facility])[address] [place] [address] AST [Catalytic activity/Vol] 17 U/L Normal 13-39 [facility] Comment on above: Performed By: #### L [id number] ####[facility] ([facility])[address] [place] [address] Bilirubin [Mass/Vol] 0.4 mg/dL Normal 0.3-1.0 [facility] Comment on above: Performed By: #### L [id number] ####[facility] ([facility])[address] [place] [address] Calcium [Mass/Vol] 9.6 mg/dL Normal 8.6-10.3 [facility] Comment on above: Performed By: #### L [id number] ####[facility] ([facility])[address] [place] [address] Chloride [Moles/Vol] 110 mmol/L High 98-107 [facility] Comment on above: Performed By: #### L [id number] ####[facility] ([facility])[address] [place] [address] CO2 [Moles/Vol] 21 mmol/L Normal 21-31 [facility] Comment on above: Performed By: #### L [id number] ####[facility] ([facility])[address] [place] [address] Creatinine [Mass/Vol] 2.67 mg/dL High 0.60-1.20 [facility] Comment on above: Performed By: #### L [id number] ####[facility] ([facility])[address] [place] [address] GLOMERULAR FILTRATION RATE ML/MIN/1.73 SQ M.PREDICTED 19.5 mL/min/1.73m*2 Low >60.0 [facility] Comment on above: Result Comment: [facility]???s estimated glomerular filtration rate (eGFR) will [...] of individuals. Performed By: #### L [id number] ####[facility] (AKER)[address] [place] [address] Glucose [Mass/Vol] 73 mg/dL Normal 70-100 [facility] Comment on above: Performed By: #### L [id number] ####[facility] (AKER)[address] [place] [address] Potassium [Moles/Vol] 3.9 mmol/L Normal 3.5-5.1 [facility] Comment on above: Performed By: #### L [id number] ####[facility] (BEAKER)[address] [place] [address] Protein [Mass/Vol] 6.4 g/dL Normal 6.0-8.3 [facility] Comment on above: Performed By: #### L [id number] ####[facility] (BEAKER)[address] [place] [address] Sodium [Moles/Vol] 140 mmol/L Normal 136-145 [facility] Comment on above: Performed By: #### L [id number] ####[facility] (BEAKER)[address] [place] [address] Urea nitrogen [Mass/Vol] 43 mg/dL High 7-25 [facility] Comment on above: Performed By: #### L [id number] ####[facility] (BEAKER)[address] [place] [address] UREA NITROGEN/CREATININE (MASS RATIO) IN SER/PLAS 16.1 Normal [facility] Comment on above: Performed By: #### L [id number] ####[facility] ([facility])[address] [place] [address] CT GUIDED PERCUTANEOUS BIOPS Y RENAL RIGHTon 09-07-2024 CT GUIDED PERCUTANEOUS BIOPSY RENAL RIGHT Invalid Interpretation Code [facility] Comment on above: Order Comment: Will hold Eliquis BID as directed prior to procedure DSon 09-07-2024 DS Normal [facility] HEMOGLOBIN AND HEMATOCRIT, B LOODon 09-07-2024 Hematocrit (Bld) [Volume fraction] 29.7 % Low 36.0-45.0 [facility] Comment on above: Performed By: #### L [id number] ####[facility] ([facility])[address] [place] [address] Hemoglobin (Bld) [Mass/Vol] 8.5 g/dL Low 12.0-15.0 [facility] Comment on above: Performed By: #### L [id number] ####[facility] ([facility])[address] [place] [address] HISTOLOGY - TISSUE EXAMon LAB AP ADDENDUM 1 Normal [facility] Comment on above: Result Comment: Elec estella MicroscopyThick sections of epoxy blocks have been reviewed by the pathologist. The sample submitted for ultrastructural evaluation consists of renal cortex with 5 glomeruli identified, three of which are obsolescent. 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 There is moderate interstitial fibrosis, some acute tubular necrosis and peritubular capillary basement membranes are laminated. .Addendum electronically signed by Jodie Ness MD on 09/09/2024 at 1655 EDT Performed By: #### L [id number] ####[facility] ([facility])[address] [place] [address] LAB AP ASR DISCLAIMER Normal [facility] Comment on above: Performed By: #### L [id number] ####[facility] ([facility])[address] [place] [address] LAB AP CASE REPORT Normal [facility] Comment on above: Result Comment: Surg ical Pathology Case: [id number] Provider: Samy White MD Collected: 09/07/2024 1011Ordering Location: [facility] CT Imaging Received: 09/07/2024 1101Pathologist: QIAN Lomaxpecimen: Kidney, [id number] Performed By: #### L [id number] ####[facility] (BEAKER)[address] [place] [address] LAB AP CLINICAL INFORMATION Order Diagnoses Normal [facility] Comment on above: Result Comment: Z94. 0 - Kidney transplant status [ICD-10-CM]Z94.0 - History of kidney transplant [ICD-10-CM]R79.89 - Increase in serum creatinine from prior measurement [ICD-10-CM] Performed By: #### L [id number] ####[facility] ([facility])[address] [place] [address] LAB AP DIAGNOSIS COMMENT Normal [facility] Comment on above: Result Comment: 09-14: Case amended to add BK stain result.09-12-24: Case amended to add special stain results and IHC stains.09-07-24: Voicemail left with Dr. White 3:19 PMCorrected result: Previously reported on 09/09/2024 at 1655 EDT.Corrected result: Previously reported on 09/12/2024 at 1038 EDT. Performed By: #### L [id number] ####[facility] ([facility])[address] [place] [address] LAB AP GROSS DESCRIPTION A. Kidney. Normal [facility] Comment on above: Result Comment: Rece ived fresh in a container labeled Ja Tavera, are six tannish tissue cores measuring 1.0 x 0.1 x 0.1 cm (submitted for light microscopy); 0.8 x 0.1 x 0.1 cm (submitted for immunofluorescence); 0.8 x 0.1 x 0.1 cm (submitted for light microscopy); 0.8 x 0.1 x 0.1 cm (submitted for light microscopy); 0.8 x 0.1 x 0.1 cm (submitted for light microscopy) and 0.8 x 0.1 x 0.1 cm (submitted for electron microscopy). Performed By: #### L [id number] ####[facility] ([facility])[address] [place] [address] LAB AP IHC Negative [facility] Comment on above: Result Comment: C4d: NegativeControls appropriately reactive. Performed By: #### L [id number] ####[facility] ([facility])[address] [place] [address] LAB AP IMMUNOFLUORESCENCE RESULTS [facility] Comment on above: Result Comment: Nega tive for IgG, IgA, IgM, C3, C1q, fibrinogen, albumin, Pastos, and C4d. Performed By: #### L [id number] ####[facility] ([facility])[address] [place] [address] LAB AP INTRAOPERATIVE CONSULTATION A. Kidney. [facility] Comment on above: Result Comment: Imme diate adequacy was performed by Dr. Downey.Biopsy #1: InadequateBiopsy #2: AdequateBiopsy #3: AdequateBiopsy #4: AdequateBiopsy #5: AdequateBiopsy #6: Adequate Performed By: #### L [id number] ####[facility] ([facility])[address] [place] [address] LAB AP MICROSCOPIC DESCRIPTION [facility] Comment on above: Performed By: #### L [id number] ####[facility] ([facility])[address] [place] [address] LAB AP REPORT FINAL DIAGNOSIS NARRATIVE [facility] Comment on above: Result Comment: Clarita l allograft biopsy with:Acute tubular injury with vacuolation most probably drug effect.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 No evidence of rejection. Negative C4d.Amendment electronically signed by Jodie Ness MD on 09/14/2024 at 1155 EDTAmendment electronically signed by Jodie Ness MD on 09/12/2024 at 1038 EDT at 1524 EDT Performed By: #### L [id number] ####[facility] ([facility])[address] [place] [address] LAB AP SPECIAL STAINS Normal [facility] Comment on above: Result Comment: PAS: No specific findings.Trichrome: Periglomerular fibrosis and very focal interstitial fibrosis.Campbell: No specific fibrosis.BK stain negative.Controls appropriately reactive.Corrected result: Previously reported on 09/12/2024 at 1038 EDT. Performed By: #### L [id number] ####[facility] ([facility])[address] [place] [address] HPon 09-07-2024 HP Normal [facility] Labon 09-07-2024 Lab Normal [facility] MANUAL DIFFERENTIALon 2024 ANISOCYTOSIS PRESENCE IN BLOOD BY LIGHT MICROSCOPY Moderate Normal [facility] Comment on above: Performed By: #### L [id number] ####[facility] ([facility])[address] [place] [address] BASOPHILS (10*3/UL) IN BLOOD BY CALCULATION 0.04 10*3/uL Normal 0.00-0.20 [facility] Comment on above: Performed By: #### L [id number] ####[facility] ([facility])[address] [place] [address] BASOPHILS/100 LEUKOCYTES IN BLOOD BY AUTOMATED COUNT 0.5 % Normal 0.0-1.0 [facility] Comment on above: Performed By: #### L [id number] ####[facility] ([facility])[address] [place] [address] EOSINOPHILS (10*3/UL) IN BLOOD BY CALCULATION 0.12 10*3/uL Normal 0.00-0.50 [facility] Comment on above: Performed By: #### L [id number] ####[facility] ([facility])[address] [place] [address] EOSINOPHILS/100 LEUKOCYTES IN BLOOD BY AUTOMATED COUNT 1.6 % Normal 0.0-6.0 [facility] Comment on above: Performed By: #### L [id number] ####[facility] ([facility])[address] [place] [address] HYPOCHROMIA (PRESENCE) IN BLOOD BY LIGHT MICROSCOPY Slight Normal [facility] Comment on above: Performed By: #### L [id number] ####[facility] ([facility])[address] [place] [address] IMMATURE GRANULOCYTES (10*3/UL) IN BLOOD BY CALCULATION 0.02 10*3/uL Normal 0.00-0.20 [facility] Comment on above: Performed By: #### L [id number] ####[facility] ([facility])[address] [place] [address] IMMATURE GRANULOCYTES/100 LEUKOCYTES IN BLOOD BY AUTOMATED COUNT 0.3 % Normal 0.0-1.0 [facility] Comment on above: Performed By: #### L [id number] ####[facility] ([facility])[address] [place] [address] LYMPHOCYTES (10*3/UL) IN BLOOD BY CALCULATION 1.58 10*3/uL Normal 1.20-4.00 [facility] Comment on above: Performed By: #### L [id number] ####[facility] ([facility])[address] [place] [address] LYMPHOCYTES/100 LEUKOCYTES IN BLOOD BY AUTOMATED COUNT 21.4 % Normal 20.0-45.0 [facility] Comment on above: Performed By: #### L [id number] ####[facility] ([facility])[address] [place] [address] MONOCYTES (10*3/UL) IN BLOOD BY CALCUATION 0.62 10*3/uL Normal 0.10-1.00 [facility] Comment on above: Performed By: #### L [id number] ####[facility] ([facility])[address] [place] [address] MONOCYTES/100 LEUKOCYTES IN BLOOD BY AUTOMATED COUNT 8.4 % Normal 5.0-12.0 [facility] Comment on above: Performed By: #### L [id number] ####[facility] ([facility])[address] [place] [address] NEUTROPHILS (10*3/UL) IN BLOOD BY CALCULATION 5.0 10*3/uL Normal 1.6-7.6 [facility] Comment on above: Performed By: #### L [id number] ####[facility] ([facility])[address] [place] [address] NEUTROPHILS/100 LEUKOCYTES IN BLOOD BY AUTOMATED COUNT 67.8 % Normal 40.0-72.0 [facility] Comment on above: Performed By: #### L [id number] ####[facility] ([facility])[address] [place] [address] POIKILOCYTOSIS (PRESENCE) IN BLOOD BY LIGHT MICROSCOPY Slight Normal [facility] Comment on above: Performed By: #### L [id number] ####[facility] ([facility])[address] [place] [address] POLYCHROMASIA IN BLOOD BY LIGHT MICROSCOPY Slight Normal [facility] Comment on above: Performed By: #### L [id number] ####[facility] (BE[facility]ER)[address] [place] [address] NURSNOTEon 09-07-2024 NURSNOTE Normal [facility] PROTIME-INRon 09-07-2024 INR IN PPP BY COAGULATION ASSAY 0.99 Normal 0.90-1.10 [facility] Comment on above: Result Comment: ACCC P RECOMMENDED INR FOR WARFARIN THERAPY CONDITION INRPROPHYLAXIS OF VENOUS THROMBOSIS 2-3(HIGH-RISK SURGERY)TREATMENT OF VENOUS THROMBOSIS 2-3TREATMENT OF PULMONARY EMBOLISM 2-3PREVENTION OF SYSTEMIC EMBOLISM: 2-3 ACUTE MYOCARDIAL INFARCTION TISSUE HEART VALVES VALVULAR HEART DISEASE ATRIAL FIBRILLATION RECURRENT SYSTEMIC EMBOLISMMECHANICAL HEART VALVE 2.5-3.5 FROM: ORAL ANTICOAGULANTS. MECHANISM OF ACTION, CLINICAL EFFECTIVENESS, AND OPTIMAL THERAPEUTIC RANGE. CHEST 1995;108:231S-246S. Performed By: #### L [id number] ####[facility] ([facility])[address] [place] [address] PROTHROMBIN TIME (PT) IN PPP BY COAGULATION ASSAY 13.1 Seconds Normal 12.3-14.8 [facility] Comment on above: Performed By: #### L [id number] ####[facility] ([facility])[address] [place] [address] SINGLE ANTIGEN CLASS Ion AB SCREEN COMMENTS No Class I donor spe cific antibody identified Normal [facility] Comment on above: Performed By: #### L [id number] ####[facility] TISSUE TYPING (HISTOTRAC)[address] [place] [address] [place] CLASS I TESTED DATE [id number] Normal [facility] Comment on above: Performed By: #### L [id number] ####[facility] TISSUE TYPING (HISTOTRAC)[address] SINGLE ANTIGEN CLASS 1 TEST METHOD Class I Single Antigen Normal [facility] Comment on above: Performed By: #### L [id number] ####[facility] TISSUE TYPING (HISTOTRAC)[address] [place] [address] [facility] SINGLE ANTIGEN CLASS IIon AB SCREEN COMMENTS No Class II donor sp ecific antibody identified Normal [facility] Comment on above: Performed By: #### L [id number] ####[facility] TISSUE TYPING (HISTOTRAC)[address] [place] [id number] [facility] CLASS II TESTED DATE [id number] Normal [facility] Comment on above: Performed By: #### L [id number] ####[facility] TISSUE TYPING (HISTOTRAC)[address] SIGNED BY Signed by Pablo nino CHT([facility]) TAD(ASCP), Residential Mortgage Manager Transplant Immunology Normal [facility] Comment on above: Performed By: #### L [id number] ####[facility] TISSUE TYPING (HISTOTRAC)[address] Result Comment: Clas s I Antigen Microbeads Performed By: #### L [id number] ####[facility] TISSUE TYPING (HISTOTRAC)[address] SINGLE ANTIGEN CLASS 2 TEST METHOD Class II Single Antigen Normal [facility] Comment on above: Result Comment: Clas s II Antigen Microbeads Performed By: #### L [id number] ####[facility] TISSUE TYPING (HISTOTRAC)[address] SIROLIMUS LEVELon 09-07-2024 SIROLIMUS (NG/ML) IN BLOOD 11.1 ng/mL Normal [facility] Comment on above: Result Comment: The [employer] Sirolimus assay is a delayed one-step immunoassay for the quantitative determination of sirolimus in human whole blood using a chemiluminescent microparticle immunoassay (CMIA) technology with flexible assay protocols, referred to as Chemiflex. Performed By: #### L [id number] ####[facility] (BEAKER)[address] [place] [address] TACROLIMUS LEVELon Tacrolimus (Bld) [Mass/Vol] 5.3 ng/mL Normal 5.0-20.0 [facility] Comment on above: Result Comment: The [employer] Tacrolimus assay is a delayed one-step immunoassay for the quantitative determination of tacrolimus in human whole blood using the chemiluminescent microparticle immunoassay (CMIA) technology with flexible assay protocols, referred to as Chemiflex. Performed By: #### L [id number] ####[facility] ([facility])[address] [place] [address] URINALYSISon 09-07-2024 BILIRUBIN, TOTAL PRESENCE IN URINE Negative Normal Negative [facility] Comment on above: Order Comment: Micro scopics not performed on urines with negative chemical reactions unless requested on original order. Performed By: #### L [id number] ####[facility] ([facility])[address] [place] [address] Clarity (U) Clear Normal Clear [facility] Comment on above: Order Comment: Micro scopics not performed on urines with negative chemical reactions unless requested on original order. Performed By: #### L [id number] ####[facility] ([facility])[address] [place] [address] Color (U) Colorless Normal Colorless, Yellow, Light-Haralson ow [facility] Comment on above: Order Comment: Micro scopics not performed on urines with negative chemical reactions unless requested on original order. Performed By: #### L [id number] ####[facility] ([facility])[address] [place] [address] GLUCOSE (MG/DL) IN URINE Normal Normal Normal [facility] Comment on above: Order Comment: Micro scopics not performed on urines with negative chemical reactions unless requested on original order. Performed By: #### L [id number] ####[facility] ([facility])[address] [place] [address] HEMOGLOBIN PRESENCE IN URINE Negative Normal Negative [facility] Comment on above: Order Comment: Micro scopics not performed on urines with negative chemical reactions unless requested on original order. Performed By: #### L [id number] ####[facility] ([facility])[address] [place] [address] Ketones Ql (U) Negative Normal Negative [facility] Comment on above: Order Comment: Micro scopics not performed on urines with negative chemical reactions unless requested on original order. Performed By: #### L [id number] ####[facility] ([facility])[address] [place] [address] LEUKOCYTE ESTERASE PRESENCE IN URINE BY TEST STRIP Negative Normal Negative [facility] Comment on above: Order Comment: Micro scopics not performed on urines with negative chemical reactions unless requested on original order. Performed By: #### L [id number] ####[facility] ([facility])[address] [place] [address] NITRITE PRESENCE IN URINE Negative Normal Negative [facility] Comment on above: Order Comment: Micro scopics not performed on urines with negative chemical reactions unless requested on original order. Performed By: #### L [id number] ####[facility] ([facility])[address] [place] [address] pH (U) 7.0 [pH] Normal 5.0-8.0 [facility] Comment on above: Order Comment: Micro scopics not performed on urines with negative chemical reactions unless requested on original order. Performed By: #### L [id number] ####[facility] ([facility])[address] [place] [address] Protein (U) [Mass/Vol] Negative Normal Negative [facility] Comment on above: Order Comment: Micro scopics not performed on urines with negative chemical reactions unless requested on original order. Performed By: #### L [id number] ####[facility] ([facility])[address] [place] [address] Specific gravity (U) [Rel density] 1.008 Low 1.010-1.03 0 [facility] Comment on above: Order Comment: Micro scopics not performed on urines with negative chemical reactions unless requested on original order. Performed By: #### L [id number] ####[facility] ([facility])[address] [place] [address] UROBILINOGEN (MG/DL) IN URINE Normal Normal Normal [facility] Comment on above: Order Comment: Micro scopics not performed on urines with negative chemical reactions unless requested on original order. Performed By: #### L [id number] ####[facility] ([facility])[address] [place] [address] BILIRUBIN, DIRECTon 09-01-19 25 Magnesium [Mass/Vol] 0.0 mg/dL Normal 0-0.2 [facility] Comment on above: Performed By: #### L [id number] ####[facility] ([facility])[address] [place] [address] CBC WITH AUTO DIFFERENTIALon 08-31-2024 Basophils (Bld) [#/Vol] 0.05 10*3/uL Normal 0.00-0.20 [facility] Comment on above: Performed By: #### L [id number] ####[facility] (BEAKER)[address] [place] [address] Basophils/100 WBC (Bld) 0.5 % Normal 0.0-1.0 [facility] Comment on above: Performed By: #### L [id number] ####[facility] (BEAKER)[address] [place] [address] Eosinophils (Bld) [#/Vol] 0.21 10*3/uL Normal 0.00-0.50 [facility] Comment on above: Performed By: #### L [id number] ####[facility] (BEAKER)[address] [place] [address] Eosinophils/100 WBC (Bld) 2.2 % Normal 0.0-6.0 [facility] Comment on above: Performed By: #### L [id number] ####[facility] (BEAKER)[address] [place] [address] Erythrocyte distribution width (RBC) [Ratio] 15.9 % High 11.5-15.0 [facility] Comment on above: Performed By: #### L [id number] ####[facility] (BEAKER)[address] [place] [address] ERYTHROCYTE MEAN CORPUSCULAR HEMOGLOBIN CONCENTRATION (G/DL) BY AUTOMATED 29.3 g/dL Low 32.0-35.0 [facility] Comment on above: Performed By: #### L [id number] ####[facility] (BEAKER)[address] [place] [address] Hematocrit (Bld) [Volume fraction] 28.0 % Low 36.0-45.0 [facility] Comment on above: Performed By: #### L [id number] ####[facility] (BEAKER)[address] [place] [address] Hemoglobin (Bld) [Mass/Vol] 8.2 g/dL Low 12.0-15.0 [facility] Comment on above: Performed By: #### L [id number] ####[facility] (BEAKER)[address] [place] [address] Immature granulocytes (Bld) [#/Vol] 0.03 10*3/uL Normal 0.00-0.20 [facility] Comment on above: Performed By: #### L [id number] ####[facility] ([facility])[address] [place] [address] Immature granulocytes/100 WBC (Bld) 0.3 % Normal 0.0-1.0 [facility] Comment on above: Performed By: #### L [id number] ####[facility] ([facility])[address] [place] [address] Lymphocytes (Bld) [#/Vol] 3.14 10*3/uL Normal 1.20-4.00 [facility] Comment on above: Performed By: #### L [id number] ####[facility] ([facility])[address] [place] [address] Lymphocytes/100 WBC (Bld) 33.4 % Normal 20.0-45.0 [facility] Comment on above: Performed By: #### L [id number] ####[facility] ([facility])[address] [place] [address] MCH (RBC) [Entitic mass] 22.7 pg Low 27.0-33.0 [facility] Comment on above: Performed By: #### L [id number] ####[facility] ([facility])[address] [facility] [place] [place] [address] MCV (RBC) [Entitic vol] 77.6 fL Low 82.0-98.0 [facility] Comment on above: Performed By: #### L [id number] ####[facility] (BEAKER)[address] [facility] [place] [address] Monocytes (Bld) [#/Vol] 1.04 10*3/uL High 0.10-1.00 [facility] Comment on above: Performed By: #### L [id number] ####[facility] (BEAKER)[address] [place] [address] Monocytes/100 WBC (Bld) 11.1 % Normal 5.0-12.0 [facility] Comment on above: Performed By: #### L [id number] ####[facility] (BEAKER)[address] [place] [address] Neutrophils (Bld) [#/Vol] 4.94 10*3/uL Normal 1.60-7.60 [facility] Comment on above: Performed By: #### L [id number] ####[facility] (BEAKER)[address] [place] [address] Neutrophils/100 WBC (Bld) 52.5 % Normal 40.0-72.0 [facility] Comment on above: Performed By: #### L [id number] ####[facility] (BEAKER)[address] [place] [address] NRBC (PER 100 WBCS) BY AUTOMATED COUNT 0.0 % Normal 0 [facility] Comment on above: Performed By: #### L [id number] ####[facility] (BEAKER)[address] [place] [address] PLATELETS (10*3/UL) IN BLOOD AUTOMATED COUNT 378 10*3/uL Normal 150-400 [facility] Comment on above: Performed By: #### L [id number] ####[facility] (BEAKER)[address] [place] [address] RBC (Bld) [#/Vol] 3.61 10*6/uL Low 3.80-5.00 [facility] Comment on above: Performed By: #### L [id number] ####[facility] (BEAKER)[address] [place] [address] WBC (Bld) [#/Vol] 9.41 10*3/uL Normal 4.00-10.60 [facility] Comment on above: Performed By: #### L [id number] ####[facility] (BEAKER)[address] [place] [address] COMPREHENSIVE METABOLIC PANE Macario 08-31-2024 Albumin [Mass/Vol] 3.9 g/dL Normal 3.5-5.7 [facility] Comment on above: Performed By: #### L [id number] ####[facility] (BEAKER)[address] [place] [address] ALP [Catalytic activity/Vol] 58 U/L Normal 34-104 [facility] Comment on above: Performed By: #### L [id number] ####[facility] ([facility])[address] [place] [address] ALT [Catalytic activity/Vol] 13 U/L Normal 7-52 [facility] Comment on above: Performed By: #### L [id number] ####[facility] (BEAKER)[address] [place] [address] Anion gap [Moles/Vol] 12 mmol/L Normal 7-20 [facility] Comment on above: Performed By: #### L [id number] ####[facility] ([facility])[address] [place] [address] AST [Catalytic activity/Vol] 15 U/L Normal 13-39 [facility] Comment on above: Performed By: #### L [id number] ####[facility] ([facility])[address] [place] [address] Bilirubin [Mass/Vol] 0.4 mg/dL Normal 0.3-1.0 [facility] Comment on above: Performed By: #### L [id number] ####[facility] ([facility])[address] [place] [address] Calcium [Mass/Vol] 9.4 mg/dL Normal 8.6-10.3 [facility] Comment on above: Performed By: #### L [id number] ####[facility] (BEAKER)[address] [place] [address] Chloride [Moles/Vol] 107 mmol/L Normal 98-107 [facility] Comment on above: Performed By: #### L [id number] ####[facility] (BEAKER)[address] [place] [address] CO2 [Moles/Vol] 24 mmol/L Normal 21-31 [facility] Comment on above: Performed By: #### L [id number] ####[facility] (BEAKER)[address] [place] [address] Creatinine [Mass/Vol] 2.61 mg/dL High 0.60-1.20 [facility] Comment on above: Performed By: #### L [id number] ####[facility] (BEAKER)[address] [place] [address] GLOMERULAR FILTRATION RATE ML/MIN/1.73 SQ M.PREDICTED 20.1 mL/min/1.73m*2 Low >60.0 [facility] Comment on above: Result Comment: [facility]???s estimated glomerular filtration rate (eGFR) will [...] of individuals. Performed By: #### L [id number] ####[facility] (BEAKER)[address] [place] [address] Glucose [Mass/Vol] 106 mg/dL High 70-100 [facility] Comment on above: Performed By: #### L [id number] ####[facility] (BEAKER)[address] [place] [address] Potassium [Moles/Vol] 4.2 mmol/L Normal 3.5-5.1 [facility] Comment on above: Performed By: #### L [id number] ####[facility] (BEAKER)[address] [place] [address] Protein [Mass/Vol] 6.4 g/dL Normal 6.0-8.3 [facility] Comment on above: Performed By: #### L [id number] ####[facility] ([facility])[address] [place] [address] Sodium [Moles/Vol] 139 mmol/L Normal 136-145 [facility] Comment on above: Performed By: #### L [id number] ####[facility] ([facility])[address] [place] [address] Urea nitrogen [Mass/Vol] 46 mg/dL High 7-25 [facility] Comment on above: Performed By: #### L [id number] ####[facility] ([facility])[address] [place] [address] UREA NITROGEN/CREATININE (MASS RATIO) IN SER/PLAS 17.6 Normal [facility] Comment on above: Performed By: #### L [id number] ####[facility] ([facility])[address] [place] [address] HEMOGLOBIN A1Con 08-31-2024 Glucose [Mass/Vol] 169 mg/dL Normal [facility] Comment on above: Performed By: #### L [id number] ####[facility] ([facility])[address] [place] [address] HbA1c (Bld) [Mass fraction] 7.5 % High 4.0-6.0 [facility] Comment on above: Performed By: #### L [id number] ####[facility] ([facility])[address] [place] [address] LIPID PANELon 08-31-2024 CHOL/HDL 4.4 mg/dL Normal [facility] Comment on above: Performed By: #### L [id number] ####[facility] ([facility])[address] [place] [address] Cholesterol [Mass/Vol] 179 mg/dL Normal 120-200 [facility] Comment on above: Performed By: #### L [id number] ####[facility] ([facility])[address] [place] [address] Magnesium [Mass/Vol] 353 mg/dL High <150 [facility] Comment on above: Result Comment: TRIG LYCERIDE REFERENCE RANGE:20 YEARS AND OLDER CARDIOVASCULAR RISKLESS THAN 150 mg/dL LOW [id number] TO 199 mg/dL BORDERLINE [id number] mg/dL AND GREATER HIGH RISK Performed By: #### L [id number] ####[facility] (BEAKER)[address] [facility] [address] Magnesium [Mass/Vol] 67 mg/dL Normal 0-160 [facility] Comment on above: Performed By: #### L [id number] ####[facility] ([facility])[address] [place] [address] Magnesium [Mass/Vol] 41 mg/dL Normal 23-92 [facility] Comment on above: Performed By: #### L [id number] ####[facility] (BE[facility])[address] [place] [address] NON HDL CHOL. (LDL+VLDL) 138 Normal [facility] Comment on above: Performed By: #### L [id number] ####[facility] (BEAKER)[address] [place] [address] TOTAL VLDL-C 71 mg/dL High 0-40 [facility] Comment on above: Performed By: #### L [id number] ####[facility] (BEAKER)[address] [place] [address] Labon 08-31-2024 Lab Normal [facility] MAGNESIUMon 08-31-2024 Magnesium [Mass/Vol] 2.3 mg/dL Normal 1.9-2.7 [facility] Comment on above: Performed By: #### L [id number] ####[facility] (BEAKER)[address] [place] [address] PHOSPHORUSon 08-31-2024 Magnesium [Mass/Vol] 3.4 mg/dL Normal 2.5-5.0 [facility] Comment on above: Performed By: #### L [id number] ####[facility] (BE[facility]ER)[address] [place] [address] SIROLIMUS LEVELon 08-31-2024 SIROLIMUS (NG/ML) IN BLOOD 3.1 ng/mL Normal [facility] Comment on above: Result Comment: The [employer] Sirolimus assay is a delayed one-step immunoassay for the quantitative determination of sirolimus in human whole blood using a chemiluminescent microparticle immunoassay (CMIA) technology with flexible assay protocols, referred to as Chemiflex. Performed By: #### L [id number] ####[facility] ([facility])[address] [place] [address] TACROLIMUS LEVELon Tacrolimus (Bld) [Mass/Vol] 2.7 ng/mL Low 5.0-20.0 [facility] Comment on above: Result Comment: The [employer] Tacrolimus assay is a delayed one-step immunoassay for the quantitative determination of tacrolimus in human whole blood using the chemiluminescent microparticle immunoassay (CMIA) technology with flexible assay protocols, referred to as Chemiflex. Performed By: #### L [id number] ####[facility] ([facility])[address] [place] [address] URIC ACIDon 08-31-2024 Magnesium [Mass/Vol] 7.2 mg/dL High 2.3-6.6 [facility] Comment on above: Performed By: #### L [id number] ####[facility] ([facility])[address] [place] [address] Documentationon 08-29-2024 Documentation Normal [facility] BILIRUBIN, DIRECTon 08-20-19 25 Magnesium [Mass/Vol] 0.1 mg/dL Normal 0-0.2 [facility] Comment on above: Performed By: #### L [id number] ####[facility] ([facility])[address] [place] [address] CBC WITH AUTO DIFFERENTIALon 08-19-2024 Erythrocyte distribution width (RBC) [Ratio] 15.4 % High 11.5-15.0 [facility] Comment on above: Performed By: #### L [id number] ####[facility] ([facility])[address] [place] [address] ERYTHROCYTE MEAN CORPUSCULAR HEMOGLOBIN CONCENTRATION (G/DL) BY AUTOMATED 28.8 g/dL Low 32.0-35.0 [facility] Comment on above: Performed By: #### L [id number] ####[facility] ([facility])[address] [place] [address] Hematocrit (Bld) [Volume fraction] 30.9 % Low 36.0-45.0 [facility] Comment on above: Performed By: #### L [id number] ####[facility] ([facility])[address] [place] [address] Hemoglobin (Bld) [Mass/Vol] 8.9 g/dL Low 12.0-15.0 [facility] Comment on above: Performed By: #### L [id number] ####[facility] ([facility])[address] [place] [address] MCH (RBC) [Entitic mass] 23.1 pg Low 27.0-33.0 [facility] Comment on above: Performed By: #### L [id number] ####[facility] ([facility])[address] [place] [address] MCV (RBC) [Entitic vol] 80.1 fL Low 82.0-98.0 [facility] Comment on above: Performed By: #### L [id number] ####[facility] ([facility])[address] [place] [address] NRBC (PER 100 WBCS) BY AUTOMATED COUNT 0.0 % Normal 0 [facility] Comment on above: Performed By: #### L [id number] ####[facility] ([facility])[address] [place] [address] PLATELETS (10*3/UL) IN BLOOD AUTOMATED COUNT 354 10*3/uL Normal 150-400 [facility] Comment on above: Performed By: #### L [id number] ####[facility] ([facility])[address] [place] [address] RBC (Bld) [#/Vol] 3.86 10*6/uL Normal 3.80-5.00 [facility] Comment on above: Performed By: #### L [id number] ####[facility] ([facility])[address] [place] [address] WBC (Bld) [#/Vol] 11.03 10*3/uL High 4.00-10.60 [facility] Comment on above: Performed By: #### L [id number] ####[facility] ([facility])[address] [place] [address] COMPREHENSIVE METABOLIC PANE Macario 08-19-2024 Albumin [Mass/Vol] 3.9 g/dL Normal 3.5-5.7 [facility] Comment on above: Performed By: #### L [id number] ####[facility] ([facility])[address] [place] [address] ALP [Catalytic activity/Vol] 46 U/L Normal 34-104 [facility] Comment on above: Performed By: #### L [id number] ####[facility] ([facility])[address] [place] [address] ALT [Catalytic activity/Vol] 16 U/L Normal 7-52 [facility] Comment on above: Performed By: #### L [id number] ####[facility] ([facility])[address] [place] [address] Anion gap [Moles/Vol] 12 mmol/L Normal 7-20 [facility] Comment on above: Performed By: #### L [id number] ####[facility] ([facility])[address] [place] [address] AST [Catalytic activity/Vol] 15 U/L Normal 13-39 [facility] Comment on above: Performed By: #### L [id number] ####[facility] ([facility])[address] [place] [address] Bilirubin [Mass/Vol] 0.4 mg/dL Normal 0.3-1.0 [facility] Comment on above: Performed By: #### L [id number] ####[facility] ([facility])[address] [place] [address] Calcium [Mass/Vol] 9.5 mg/dL Normal 8.6-10.3 [facility] Comment on above: Performed By: #### L [id number] ####[facility] ([facility])[address] [place] [address] Chloride [Moles/Vol] 108 mmol/L High 98-107 [facility] Comment on above: Performed By: #### L [id number] ####[facility] ([facility])[address] [place] [address] CO2 [Moles/Vol] 25 mmol/L Normal 21-31 [facility] Comment on above: Performed By: #### L [id number] ####[facility] ([facility])[address] [place] [address] Creatinine [Mass/Vol] 3.13 mg/dL High 0.60-1.20 [facility] Comment on above: Performed By: #### L [id number] ####[facility] ([facility])[address] [place] [address] GLOMERULAR FILTRATION RATE ML/MIN/1.73 SQ M.PREDICTED 16.2 mL/min/1.73m*2 Low >60.0 [facility] Comment on above: Result Comment: [facility]???s estimated glomerular filtration rate (eGFR) will [...] of individuals. Performed By: #### L [id number] ####[facility] ([facility])[address] [place] [address] Glucose [Mass/Vol] 88 mg/dL Normal 70-100 [facility] Comment on above: Performed By: #### L [id number] ####[facility] (BEAKER)[address] [place] [address] Potassium [Moles/Vol] 4.0 mmol/L Normal 3.5-5.1 [facility] Comment on above: Performed By: #### L [id number] ####[facility] (BEAKER)[address] [place] [address] Protein [Mass/Vol] 6.5 g/dL Normal 6.0-8.3 [facility] Comment on above: Performed By: #### L [id number] ####[facility] (BEAKER)[address] [place] [address] Sodium [Moles/Vol] 141 mmol/L Normal 136-145 [facility] Comment on above: Performed By: #### L [id number] ####[facility] (BEAKER)[address] [place] [address] Urea nitrogen [Mass/Vol] 38 mg/dL High 7-25 [facility] Comment on above: Performed By: #### L [id number] ####[facility] ([facility]ER)[address] [place] [address] UREA NITROGEN/CREATININE (MASS RATIO) IN SER/PLAS 12.1 Normal [facility] Comment on above: Performed By: #### L [id number] ####[facility] ([facility]ER)[address] [place] [address] HEMOGLOBIN A1Con 08-19-2024 Glucose [Mass/Vol] 171 mg/dL Normal [facility] Comment on above: Performed By: #### L [id number] ####[facility] (BE[facility]ER)[address] [place] [address] HbA1c (Bld) [Mass fraction] 7.6 % High 4.0-6.0 [facility] Comment on above: Performed By: #### L [id number] ####[facility] (BEAKER)[address] [place] [address] LIPID PANELon 08-19-2024 CHOL/HDL 3.3 mg/dL Normal [facility] Comment on above: Performed By: #### L [id number] ####[facility] ([facility])[address] [place] [address] Cholesterol [Mass/Vol] 150 mg/dL Normal 120-200 [facility] Comment on above: Performed By: #### L [id number] ####[facility] ([facility])[address] [place] [address] Magnesium [Mass/Vol] 157 mg/dL High <150 [facility] Comment on above: Result Comment: TRIG LYCERIDE REFERENCE RANGE:20 YEARS AND OLDER CARDIOVASCULAR RISKLESS THAN 150 mg/dL LOW [id number] TO 199 mg/dL BORDERLINE [id number] mg/dL AND GREATER HIGH RISK Performed By: #### L [id number] ####[facility] ([facility])[address] [place] [address] Magnesium [Mass/Vol] 73 mg/dL Normal 0-160 [facility] Comment on above: Performed By: #### L [id number] ####[facility] ([facility])[address] [place] [address] Magnesium [Mass/Vol] 46 mg/dL Normal 23-92 [facility] Comment on above: Performed By: #### L [id number] ####[facility] ([facility])[address] [place] [address] NON HDL CHOL. (LDL+VLDL) 104 Normal [facility] Comment on above: Performed By: #### L [id number] ####[facility] ([facility])[address] [place] [address] TOTAL VLDL-C 31 mg/dL Normal 0-40 [facility] Comment on above: Performed By: #### L [id number] ####[facility] ([facility])[address] [place] [address] Labon 08-19-2024 Lab Normal [facility] MAGNESIUMon 08-19-2024 Magnesium [Mass/Vol] 2.3 mg/dL Normal 1.9-2.7 [facility] Comment on above: Performed By: #### L [id number] ####[facility] ([facility])[address] [place] [address] MANUAL DIFFERENTIALon 2024 ANISOCYTOSIS PRESENCE IN BLOOD BY LIGHT MICROSCOPY Moderate Normal [facility] Comment on above: Performed By: #### L [id number] ####[facility] ([facility])[address] [place] [address] BASOPHILS (10*3/UL) IN BLOOD BY CALCULATION 0.07 10*3/uL Normal 0.00-0.20 [facility] Comment on above: Performed By: #### L [id number] ####[facility] ([facility])[address] [place] [address] BASOPHILS/100 LEUKOCYTES IN BLOOD BY AUTOMATED COUNT 0.6 % Normal 0.0-1.0 [facility] Comment on above: Performed By: #### L [id number] ####[facility] ([facility])[address] [place] [address] EOSINOPHILS (10*3/UL) IN BLOOD BY CALCULATION 0.23 10*3/uL Normal 0.00-0.50 [facility] Comment on above: Performed By: #### L [id number] ####[facility] ([facility])[address] [place] [address] EOSINOPHILS/100 LEUKOCYTES IN BLOOD BY AUTOMATED COUNT 2.1 % Normal 0.0-6.0 [facility] Comment on above: Performed By: #### L [id number] ####[facility] ([facility])[address] [place] [address] HYPOCHROMIA (PRESENCE) IN BLOOD BY LIGHT MICROSCOPY Slight Normal [facility] Comment on above: Performed By: #### L [id number] ####[facility] ([facility])[address] [place] [address] IMMATURE GRANULOCYTES (10*3/UL) IN BLOOD BY CALCULATION 0.03 10*3/uL Normal 0.00-0.20 [facility] Comment on above: Performed By: #### L [id number] ####[facility] ([facility])[address] [place] [address] IMMATURE GRANULOCYTES/100 LEUKOCYTES IN BLOOD BY AUTOMATED COUNT 0.3 % Normal 0.0-1.0 [facility] Comment on above: Performed By: #### L [id number] ####[facility] ([facility])[address] [place] [address] LYMPHOCYTES (10*3/UL) IN BLOOD BY CALCULATION 2.96 10*3/uL Normal 1.20-4.00 [facility] Comment on above: Performed By: #### L [id number] ####[facility] ([facility])[address] [place] [address] LYMPHOCYTES/100 LEUKOCYTES IN BLOOD BY AUTOMATED COUNT 26.8 % Normal 20.0-45.0 [facility] Comment on above: Performed By: #### L [id number] ####[facility] ([facility])[address] [place] [address] MONOCYTES (10*3/UL) IN BLOOD BY CALCUATION 1.24 10*3/uL High 0.10-1.00 [facility] Comment on above: Performed By: #### L [id number] ####[facility] ([facility])[address] [place] [address] MONOCYTES/100 LEUKOCYTES IN BLOOD BY AUTOMATED COUNT 11.2 % Normal 5.0-12.0 [facility] Comment on above: Performed By: #### L [id number] ####[facility] ([facility])[address] [place] [address] NEUTROPHILS (10*3/UL) IN BLOOD BY CALCULATION 6.5 10*3/uL Normal 1.6-7.6 [facility] Comment on above: Performed By: #### L [id number] ####[facility] ([facility])[address] [place] [address] NEUTROPHILS/100 LEUKOCYTES IN BLOOD BY AUTOMATED COUNT 59.0 % Normal 40.0-72.0 [facility] Comment on above: Performed By: #### L [id number] ####[facility] ([facility])[address] [place] [address] POIKILOCYTOSIS (PRESENCE) IN BLOOD BY LIGHT MICROSCOPY Slight Normal [facility] Comment on above: Performed By: #### L [id number] ####[facility] ([facility])[address] [place] [address] POLYCHROMASIA IN BLOOD BY LIGHT MICROSCOPY Slight Normal [facility] Comment on above: Performed By: #### L [id number] ####[facility] ([facility])[address] [place] [address] PHOSPHORUSon 08-19-2024 Magnesium [Mass/Vol] 2.7 mg/dL Normal 2.5-5.0 [facility] Comment on above: Performed By: #### L [id number] ####[facility] ([facility])[address] [place] [address] TACROLIMUS LEVELon Tacrolimus (Bld) [Mass/Vol] 3.1 ng/mL Low 5.0-20.0 [facility] Comment on above: Result Comment: The [employer] Tacrolimus assay is a delayed one-step immunoassay for the quantitative determination of tacrolimus in human whole blood using the chemiluminescent microparticle immunoassay (CMIA) technology with flexible assay protocols, referred to as Chemiflex. Performed By: #### L [id number] ####[facility] ([facility])[address] [place] [address] TESTOSTERONE, FREE, TOTAL, B IO AND SHBGon 08-19-2024 SEX HORMONE BINDING GLOBULIN (NMOL/L) IN SER/PLAS 57 nmol/L Normal 17-125 [facility] Comment on above: Performed By: #### L [id number] ####[employer] [id number] [place] [address] TESTOSTERONE (NG/DL) IN SER/PLAS 25 ng/dL Normal 3-41 [facility] Comment on above: Performed By: #### L [id number] ####[employer] [id number] [place] [address] TESTOSTERONE BIOAVAILABLE (NG/DL) IN SER/PLAS 7.3 ng/dL Normal 1.5-9.4 [facility] Comment on above: Result Comment: Post -menopausal range: 1.5-9.4 The concentration of bioavailable testosterone is derived from a mathematical expression based on the constant for the binding of testosterone to albumin and/or sex hormone binding globulin.Test Performed by [employer] [address] [place] [id number] - Released 08/19/2024 16:34 Performed By: #### L [id number] ####[facility] [id number] [place] [address] TESTOSTERONE FREE (NG/ML) IN SER/PLAS 3.1 pg/mL Normal 0.6-3.8 [facility] Comment on above: Result Comment: Post -menopausal range: 0.6-3.8 The concentration of free testosterone is derived from a mathematical expression based on the constant for the binding of testosterone to albumin and/or sex hormone binding globulin. Performed By: #### L [id number] ####[employer] [id number] [place] [address] URIC ACIDon 08-19-2024 Magnesium [Mass/Vol] 6.8 mg/dL High 2.3-6.6 [facility] Comment on above: Performed By: #### L [id number] ####[facility] ([facility])[address] [place] [address] BILIRUBIN, DIRECTon 06-21-19 25 Magnesium [Mass/Vol] 0.1 mg/dL Normal 0-0.2 [facility] Comment on above: Performed By: #### L [id number] ####[facility] ([facility])[address] [place] [address] CBC WITH AUTO DIFFERENTIALon 06-20-2024 Basophils (Bld) [#/Vol] 0.05 10*3/uL Normal 0.00-0.20 [facility] Comment on above: Performed By: #### L [id number] ####[facility] ([facility])[address] [place] [address] Basophils/100 WBC (Bld) 0.4 % Normal 0.0-1.0 [facility] Comment on above: Performed By: #### L [id number] ####[facility] (BEAKER)[address] [place] [address] Eosinophils (Bld) [#/Vol] 0.11 10*3/uL Normal 0.00-0.50 [facility] Comment on above: Performed By: #### L [id number] ####[facility] (BEAKER)[address] [place] [address] Eosinophils/100 WBC (Bld) 0.9 % Normal 0.0-6.0 [facility] Comment on above: Performed By: #### L [id number] ####[facility] ([facility])[address] [place] [address] Erythrocyte distribution width (RBC) [Ratio] 13.6 % Normal 11.5-15.0 [facility] Comment on above: Performed By: #### L [id number] ####[facility] ([facility])[address] [place] [address] ERYTHROCYTE MEAN CORPUSCULAR HEMOGLOBIN CONCENTRATION (G/DL) BY AUTOMATED 31.0 g/dL Low 32.0-35.0 [facility] Comment on above: Performed By: #### L [id number] ####[facility] ([facility])[address] [place] [address] Hematocrit (Bld) [Volume fraction] 32.3 % Low 36.0-45.0 [facility] Comment on above: Performed By: #### L [id number] ####[facility] ([facility])[address] [place] [address] Hemoglobin (Bld) [Mass/Vol] 10.0 g/dL Low 12.0-15.0 [facility] Comment on above: Performed By: #### L [id number] ####[facility] (BEAKER)[address] [place] [address] Immature granulocytes (Bld) [#/Vol] 0.04 10*3/uL Normal 0.00-0.20 [facility] Comment on above: Performed By: #### L [id number] ####[facility] (BEAKER)[address] [place] [address] Immature granulocytes/100 WBC (Bld) 0.3 % Normal 0.0-1.0 [facility] Comment on above: Performed By: #### L [id number] ####[facility] (BEAKER)[address] [place] [address] Lymphocytes (Bld) [#/Vol] 2.60 10*3/uL Normal 1.20-4.00 [facility] Comment on above: Performed By: #### L [id number] ####[facility] (BEAKER)[address] [place] [address] Lymphocytes/100 WBC (Bld) 22.2 % Normal 20.0-45.0 [facility] Comment on above: Performed By: #### L [id number] ####[facility] [facility] (BEAKER)[address] [place] [address] MCH (RBC) [Entitic mass] 27.7 pg Normal 27.0-33.0 [facility] Comment on above: Performed By: #### L [id number] ####[facility] (BEAKER)[address] [place] [address] MCV (RBC) [Entitic vol] 89.5 fL Normal 82.0-98.0 [facility] Comment on above: Performed By: #### L [id number] ####[facility] (BEAKER)[address] [place] [address] Monocytes (Bld) [#/Vol] 1.43 10*3/uL High 0.10-1.00 [facility] Comment on above: Performed By: #### L [id number] ####[facility] (BEAKER)[address] [place] [address] Monocytes/100 WBC (Bld) 12.2 % High 5.0-12.0 [facility] Comment on above: Performed By: #### L [id number] ####[facility] (BEAKER)[address] [place] [address] Neutrophils (Bld) [#/Vol] 7.48 10*3/uL Normal 1.60-7.60 [facility] Comment on above: Performed By: #### L [id number] ####[facility] ([facility])[address] [place] [address] Neutrophils/100 WBC (Bld) 64.0 % Normal 40.0-72.0 [facility] Comment on above: Performed By: #### L [id number] ####[facility] ([facility])[address] [place] [address] NRBC (PER 100 WBCS) BY AUTOMATED COUNT 0.0 % Normal 0 [facility] Comment on above: Performed By: #### L [id number] ####[facility] ([facility])[address] [place] [address] PLATELETS (10*3/UL) IN BLOOD AUTOMATED COUNT 336 10*3/uL Normal 150-400 [facility] Comment on above: Performed By: #### L [id number] ####[facility] ([facility])[address] [place] [address] RBC (Bld) [#/Vol] 3.61 10*6/uL Low 3.80-5.00 [facility] Comment on above: Performed By: #### L [id number] ####[facility] ([facility])[address] [place] [address] WBC (Bld) [#/Vol] 11.71 10*3/uL High 4.00-10.60 [facility] Comment on above: Performed By: #### L [id number] ####[facility] ([facility])[address] [place] [address] COMPREHENSIVE METABOLIC PANE Macario 06-20-2024 Albumin [Mass/Vol] 3.9 g/dL Normal 3.5-5.7 [facility] Comment on above: Performed By: #### L [id number] ####[facility] ([facility])[address] [place] [address] ALP [Catalytic activity/Vol] 39 U/L Normal 34-104 [facility] Comment on above: Performed By: #### L [id number] ####[facility] ([facility])[address] [place] [address] ALT [Catalytic activity/Vol] 21 U/L Normal 7-52 [facility] Comment on above: Performed By: #### L [id number] ####[facility] ([facility])[address] [place] [address] Anion gap [Moles/Vol] 11 mmol/L Normal 7-20 [facility] Comment on above: Performed By: #### L [id number] ####[facility] ([facility])[address] [place] [address] AST [Catalytic activity/Vol] 19 U/L Normal 13-39 [facility] Comment on above: Performed By: #### L [id number] ####[facility] ([facility])[address] [place] [address] Bilirubin [Mass/Vol] 0.6 mg/dL Normal 0.3-1.0 [facility] Comment on above: Performed By: #### L [id number] ####[facility] ([facility])[address] [place] [address] Calcium [Mass/Vol] 9.9 mg/dL Normal 8.6-10.3 [facility] Comment on above: Performed By: #### L [id number] ####[facility] ([facility])[address] [place] [address] Chloride [Moles/Vol] 107 mmol/L Normal 98-107 [facility] Comment on above: Performed By: #### L [id number] ####[facility] (BEAKER)[address] [place] [address] CO2 [Moles/Vol] 26 mmol/L Normal 21-31 [facility] Comment on above: Performed By: #### L [id number] ####[facility] (BEAKER)[address] [place] [address] Creatinine [Mass/Vol] 3.04 mg/dL High 0.60-1.20 [facility] Comment on above: Performed By: #### L [id number] ####[facility] ([facility])[address] [place] [address] GLOMERULAR FILTRATION RATE ML/MIN/1.73 SQ M.PREDICTED 16.8 mL/min/1.73m*2 Low >60.0 [facility] Comment on above: Result Comment: [facility]???s estimated glomerular filtration rate (eGFR) will [...] of individuals. Performed By: #### L [id number] ####[facility] ([facility])[address] [place] [address] Glucose [Mass/Vol] 59 mg/dL Low 70-100 [facility] Comment on above: Performed By: #### L [id number] ####[facility] ([facility])[address] [place] [address] Potassium [Moles/Vol] 4.2 mmol/L Normal 3.5-5.1 [facility] Comment on above: Performed By: #### L [id number] ####[facility] ([facility])[address] [place] [address] Protein [Mass/Vol] 6.2 g/dL Normal 6.0-8.3 [facility] Comment on above: Performed By: #### L [id number] ####[facility] ([facility])[address] [place] [address] Sodium [Moles/Vol] 140 mmol/L Normal 136-145 [facility] Comment on above: Performed By: #### L [id number] ####[facility] (BEAKER)[address] [place] [address] Urea nitrogen [Mass/Vol] 45 mg/dL High 7-25 [facility] Comment on above: Performed By: #### L [id number] ####[facility] ([facility])[address] [place] [address] UREA NITROGEN/CREATININE (MASS RATIO) IN SER/PLAS 14.8 Normal [facility] Comment on above: Performed By: #### L [id number] ####[facility] ([facility])[address] [place] [address] HEMOGLOBIN A1Con 06-20-2024 Glucose [Mass/Vol] 154 mg/dL Normal [facility] Comment on above: Performed By: #### L [id number] ####[facility] ([facility])[address] [place] [address] HbA1c (Bld) [Mass fraction] 7.0 % High 4.0-6.0 [facility] Comment on above: Performed By: #### L [id number] ####[facility] ([facility])[address] [place] [address] LIPID PANELon 06-20-2024 CHOL/HDL 3.8 mg/dL Normal [facility] Comment on above: Performed By: #### L [id number] ####[facility] ([facility])[address] [place] [address] Cholesterol [Mass/Vol] 170 mg/dL Normal 120-200 [facility] Comment on above: Performed By: #### L [id number] ####[facility] ([facility])[address] [place] [address] Magnesium [Mass/Vol] 127 mg/dL Normal <150 [facility] Comment on above: Result Comment: TRIG LYCERIDE REFERENCE RANGE:20 YEARS AND OLDER CARDIOVASCULAR RISKLESS THAN 150 mg/dL LOW [id number] TO 199 mg/dL BORDERLINE [id number] mg/dL AND GREATER HIGH RISK Performed By: #### L [id number] ####[facility] ([facility])[address] [place] [address] Magnesium [Mass/Vol] 100 mg/dL Normal 0-160 [facility] Comment on above: Performed By: #### L [id number] ####[facility] ([facility])[address] [place] [address] Magnesium [Mass/Vol] 45 mg/dL Normal 23-92 [facility] Comment on above: Performed By: #### L [id number] ####[facility] ([facility])[address] [place] [address] NON HDL CHOL. (LDL+VLDL) 125 Normal [facility] Comment on above: Performed By: #### L [id number] ####[facility] ([facility])[address] [place] [address] TOTAL VLDL-C 25 mg/dL Normal 0-40 [facility] Comment on above: Performed By: #### L [id number] ####[facility] ([facility])[address] [place] [address] Labon 06-20-2024 Lab Normal [facility] MAGNESIUMon 06-20-2024 Magnesium [Mass/Vol] 2.2 mg/dL Normal 1.9-2.7 [facility] Comment on above: Performed By: #### L [id number] ####[facility] ([facility])[address] [place] [address] PHOSPHORUSon 06-20-2024 Magnesium [Mass/Vol] 3.9 mg/dL Normal 2.5-5.0 [facility] Comment on above: Performed By: #### L [id number] ####[facility] ([facility])[address] [place] [address] TACROLIMUS LEVELon Tacrolimus (Bld) [Mass/Vol] 4.3 ng/mL Low 5.0-20.0 [facility] Comment on above: Result Comment: The [employer] Tacrolimus assay is a delayed one-step immunoassay for the quantitative determination of tacrolimus in human whole blood using the chemiluminescent microparticle immunoassay (CMIA) technology with flexible assay protocols, referred to as Chemiflex. Performed By: #### L [id number] ####[facility] (BEAKER)[address] [place] [address] URIC ACIDon 06-20-2024 Magnesium [Mass/Vol] 3.4 mg/dL Normal 2.3-6.6 [facility] Comment on above: Performed By: #### L [id number] ####[facility] (BEAKER)[address] [place] [address] Glucose (Bld) [Mass/Vol]Orde red By: Renata Fonseca on 06-14-2024 Glucose Blood, POC 290 mg/dL [facility] NM LUNG VENT/PERFUSION (VQ)o n 06-10-2024 NM LUNG VENT/PERFUSION (VQ) ADDENDUM: Critical results were called by Dr. Staci Kennedy to Dr. Steven Jones on 06/10/2024 at 18:01. Electronically Signed by: STACI KENNEDY on ThuJun 10, 2024 6:04:32 PM EDT EXAMINATION: NUCLEAR MEDICINE PERFUSION SCAN. 06/09/2024 TECHNIQUE: Ventilation not performed as part of COVID-19 safety precautions. 9 millicuries of Tc 99m MAA was administered intravenously prior to planar imaging of the lungs in multiple projections. Patient had shallow labored breathing and was unable to tolerate the ventilation portion of the study. COMPARISON: Chest radiograph June 09, 2024. HISTORY: ORDERING SYSTEM PROVIDED HISTORY: Acute saddle pulmonary embolism with acute cor pulmonale (HCC) TECHNOLOGIST PROVIDED HISTORY: follow up for perfusion defects - on tt with eliquis for acute pe FINDINGS: PERFUSION: Multiple wedge-shaped discrete segmental perfusion defects are seen in the anterior and lateral basal segment of the right lower lobe, large subsegmental perfusion defect in the superior segment of the right lower lobe and posterior segment of the right upper lobe as well as the apicoposterior segment of the left upper lobe. CHEST RADIOGRAPH: No lung parenchymal abnormalities are seen in the areas of scintigraphic abnormality. IMPRESSION: Findings positive for acute pulmonary thromboembolism according to the PISAPED criteria with multiple significant wedge-shaped perfusion defects. Interpreted by: Staci Kennedy MD Signed by: Staci Kennedy MD 06/10/24 Edited Result - FINAL Normal [facility] NM Lung Ventilation and Perf usionon 06-10-2024 Addendum by Staci Kennedy MD on 06/10/2024 6:04 PM EDT ADDENDUM: Critical results were called by Dr. Staci Kennedy to Dr. Steven Jones on 06/10/2024 at 18:01. [facility] Findings positive fo r acute pulmonary thromboembolism according to the PISAPED criteria with multiple significant wedge-shaped perfusion defects. [facility] EXAMINATION: NUCLEAR MEDICINE PERFUSION SCAN. 06/09/2024 TECHNIQUE: Ventilation not performed as part of COVID-19 safety precautions. 9 millicuries of Tc 99m MAA was administered intravenously prior to planar imaging of the lungs in multiple projections. Patient had shallow labored breathing and was unable to tolerate the ventilation portion of the study. COMPARISON: Chest radiograph June 09, 2024. HISTORY: ORDERING SYSTEM PROVIDED HISTORY: Acute saddle pulmonary embolism with acute cor pulmonale (HCC) TECHNOLOGIST PROVIDED HISTORY: follow up for perfusion defects - on tt with eliquis for acute pe FINDINGS: PERFUSION: Multiple wedge-shaped discrete segmental perfusion defects are seen in the anterior and lateral basal segment of the right lower lobe, large subsegmental perfusion defect in the superior segment of the right lower lobe and posterior segment of the right upper lobe as well as the apicoposterior segment of the left upper lobe. CHEST RADIOGRAPH: No lung parenchymal abnormalities are seen in the areas of scintigraphic abnormality. [facility] Staci Kennedy MD - 06/10/2024 EXAMINATION: NUCLEAR MEDICINE PERFUSION SCAN. 06/09/2024 TECHNIQUE: Ventilation not performed as part of COVID-19 safety precautions. 9 millicuries of Tc 99m MAA was administered intravenously prior to planar imaging of the lungs in multiple projections. Patient had shallow labored breathing and was unable to tolerate the ventilation portion of the study. COMPARISON: Chest radiograph June 09, 2024. HISTORY: ORDERING SYSTEM PROVIDED HISTORY: Acute saddle pulmonary embolism with acute cor pulmonale (HCC) TECHNOLOGIST PROVIDED HISTORY: follow up for perfusion defects - on tt with eliquis for acute pe FINDINGS: PERFUSION: Multiple wedge-shaped discrete segmental perfusion defects are seen in the anterior and lateral basal segment of the right lower lobe, large subsegmental perfusion defect in the superior segment of the right lower lobe and posterior segment of the right upper lobe as well as the apicoposterior segment of the left upper lobe. CHEST RADIOGRAPH: No lung parenchymal abnormalities are seen in the areas of scintigraphic abnormality. IMPRESSION: Findings positive for acute pulmonary thromboembolism according to the PISAPED criteria with multiple significant wedge-shaped perfusion defects. [facility] Lung Ventilation and Perf usionOrdered By: Staci Kennedy on 06-10-2024 [facility] Work Phone: XR CHEST (2 VW)on 06-10-2024 XR CHEST (2 VW) EXAMINATION: TWO XRAY VIEWS OF THE CHEST 06/09/2024 2:35 pm COMPARISON: None. HISTORY: ORDERING SYSTEM PROVIDED HISTORY: Acute saddle pulmonary embolism with acute cor pulmonale (HCC) TECHNOLOGIST PROVIDED HISTORY: for vq scan Reason for Exam: SOB on exertion, Acute saddle pulmonary embolism with acute cor pulmonale (HCC) FINDINGS: Lungs: Clear. Pleura: No effusion or pneumothorax. Cardiomediastinal silhouette: Tortuosity of the thoracic aorta. Normal heart size. Bones: No acute bony findings. Soft tissues: Surgical clips project over the base of neck. IMPRESSION: No acute pulmonary findings. Interpreted by: Ady Colon DO Signed by: Ady Colon DO 06/10/24 Final result Normal [facility] XR Chest 2 Viewson No acute pulmonary findings. [facility] EXAMINATION: TWO XRAY VIEWS OF THE CHEST 06/09/2024 2:35 pm COMPARISON: None. HISTORY: ORDERING SYSTEM PROVIDED HISTORY: Acute saddle pulmonary embolism with acute cor pulmonale (HCC) TECHNOLOGIST PROVIDED HISTORY: for vq scan Reason for Exam: SOB on exertion, Acute saddle pulmonary embolism with acute cor pulmonale (HCC) FINDINGS: Lungs: Clear. Pleura: No effusion or pneumothorax. Cardiomediastinal silhouette: Tortuosity of the thoracic aorta. Normal heart size. Bones: No acute bony findings. Soft tissues: Surgical clips project over the base of neck. [facility] Ady Colon DO - 06/10/2024 EXAMINATION: TWO XRAY VIEWS OF THE CHEST 06/09/2024 2:35 pm COMPARISON: None. HISTORY: ORDERING SYSTEM PROVIDED HISTORY: Acute saddle pulmonary embolism with acute cor pulmonale (HCC) TECHNOLOGIST PROVIDED HISTORY: for vq scan Reason for Exam: SOB on exertion, Acute saddle pulmonary embolism with acute cor pulmonale (HCC) FINDINGS: Lungs: Clear. Pleura: No effusion or pneumothorax. Cardiomediastinal silhouette: Tortuosity of the thoracic aorta. Normal heart size. Bones: No acute bony findings. Soft tissues: Surgical clips project over the base of neck. IMPRESSION: No acute pulmonary findings. [employer] XR Chest 2 ViewsOrdered By: Ady Colon on 06-10-2024 [employer] Work Phone: NM Lung Ventilation and Perf usionon 06-09-2024 Radiology Study observation (narrative) [employer] XR Chest 2 Viewson Radiology Study observation (narrative) [facility] BILIRUBIN, DIRECTon 05-24-19 25 Magnesium [Mass/Vol] 0.1 mg/dL Normal 0-0.2 [facility] Comment on above: Performed By: #### L [id number] ####[facility] ([facility])[address] [place] [address] CBC WITH AUTO DIFFERENTIALon 05-23-2024 Basophils (Bld) [#/Vol] 0.05 10*3/uL Normal 0.00-0.20 [facility] Comment on above: Performed By: #### L [id number] ####[facility] ([facility])[address] [place] [address] Basophils/100 WBC (Bld) 0.4 % Normal 0.0-1.0 [facility] Comment on above: Performed By: #### L [id number] ####[facility] ([facility])[address] [place] [address] Eosinophils (Bld) [#/Vol] 0.18 10*3/uL Normal 0.00-0.50 [facility] Comment on above: Performed By: #### L [id number] ####[facility] (BEAKER)[address] [place] [address] Eosinophils/100 WBC (Bld) 1.6 % Normal 0.0-6.0 [facility] Comment on above: Performed By: #### L [id number] ####[facility] (BEAKER)[address] [place] [address] Erythrocyte distribution width (RBC) [Ratio] 13.8 % Normal 11.5-15.0 [facility] Comment on above: Performed By: #### L [id number] ####[facility] ([facility])[address] [place] [address] ERYTHROCYTE MEAN CORPUSCULAR HEMOGLOBIN CONCENTRATION (G/DL) BY AUTOMATED 30.5 g/dL Low 32.0-35.0 [facility] Comment on above: Performed By: #### L [id number] ####[facility] ([facility])[address] [place] [address] Hematocrit (Bld) [Volume fraction] 38.3 % Normal 36.0-45.0 [facility] Comment on above: Performed By: #### L [id number] ####[facility] (BEAKER)[address] [place] [address] Hemoglobin (Bld) [Mass/Vol] 11.7 g/dL Low 12.0-15.0 [facility] Comment on above: Performed By: #### L [id number] ####[facility] (BEAKER)[address] [place] [address] Immature granulocytes (Bld) [#/Vol] 0.04 10*3/uL Normal 0.00-0.20 [facility] Comment on above: Performed By: #### L [id number] ####[facility] (BEAKER)[address] [place] [address] Immature granulocytes/100 WBC (Bld) 0.4 % Normal 0.0-1.0 [facility] Comment on above: Performed By: #### L [id number] ####[facility] (BEAKER)[address] [place] [address] Lymphocytes (Bld) [#/Vol] 2.89 10*3/uL Normal 1.20-4.00 [facility] Comment on above: Performed By: #### L [id number] ####[facility] (BEAKER)[address] [place] [address] Lymphocytes/100 WBC (Bld) 25.8 % Normal 20.0-45.0 [facility] Comment on above: Performed By: #### L [id number] ####[facility] (BEAKER)[address] [place] [address] MCH (RBC) [Entitic mass] 28.2 pg Normal 27.0-33.0 [facility] Comment on above: Performed By: #### L [id number] ####[facility] (BEAKER)[address] [place] [address] MCV (RBC) [Entitic vol] 92.3 fL Normal 82.0-98.0 [facility] Comment on above: Performed By: #### L [id number] ####[facility] (BEAKER)[address] [place] [address] Monocytes (Bld) [#/Vol] 1.41 10*3/uL High 0.10-1.00 [facility] Comment on above: Performed By: #### L [id number] ####[facility] (BEAKER)[address] [place] [address] Monocytes/100 WBC (Bld) 12.6 % High 5.0-12.0 [facility] Comment on above: Performed By: #### L [id number] ####[facility] (BEAKER)[address] [place] [address] Neutrophils (Bld) [#/Vol] 6.62 10*3/uL Normal 1.60-7.60 [facility] Comment on above: Performed By: #### L [id number] ####[facility] (BEAKER)[address] [place] [address] Neutrophils/100 WBC (Bld) 59.2 % Normal 40.0-72.0 [facility] Comment on above: Performed By: #### L [id number] ####[facility] ([facility])[address] [place] [address] NRBC (PER 100 WBCS) BY AUTOMATED COUNT 0.0 % Normal 0 [facility] Comment on above: Performed By: #### L [id number] ####[facility] ([facility])[address] [place] [address] PLATELETS (10*3/UL) IN BLOOD AUTOMATED COUNT 269 10*3/uL Normal 150-400 [facility] Comment on above: Performed By: #### L [id number] ####[facility] ([facility])[address] [place] [address] RBC (Bld) [#/Vol] 4.15 10*6/uL Normal 3.80-5.00 [facility] Comment on above: Performed By: #### L [id number] ####[facility] ([facility])[address] [place] [address] WBC (Bld) [#/Vol] 11.19 10*3/uL High 4.00-10.60 [facility] Comment on above: Performed By: #### L [id number] ####[facility] ([facility])[address] [place] [address] COMPREHENSIVE METABOLIC PANE Macario 05-23-2024 Albumin [Mass/Vol] 3.8 g/dL Normal 3.5-5.7 [facility] Comment on above: Performed By: #### L [id number] ####[facility] ([facility])[address] [place] [address] ALP [Catalytic activity/Vol] 54 U/L Normal 34-104 [facility] Comment on above: Performed By: #### L [id number] ####[facility] ([facility])[address] [place] [address] ALT [Catalytic activity/Vol] 16 U/L Normal 7-52 [facility] Comment on above: Performed By: #### L [id number] ####[facility] (BEAKER)[address] [place] [address] Anion gap [Moles/Vol] 11 mmol/L Normal 7-20 [facility] Comment on above: Performed By: #### L [id number] ####[facility] (BEAKER)[address] [place] [address] AST [Catalytic activity/Vol] 16 U/L Normal 13-39 [facility] Comment on above: Performed By: #### L [id number] ####[facility] (BEAKER)[address] [place] [address] Bilirubin [Mass/Vol] 0.4 mg/dL Normal 0.3-1.0 [facility] Comment on above: Performed By: #### L [id number] ####[facility] (BEAKER)[address] [place] [address] Calcium [Mass/Vol] 9.7 mg/dL Normal 8.6-10.3 [facility] Comment on above: Performed By: #### L [id number] ####[facility] (BEAKER)[address] [place] [address] Chloride [Moles/Vol] 108 mmol/L High 98-107 [facility] Comment on above: Performed By: #### L [id number] ####[facility] [facility] ([facility]AKER)[address] [place] [address] CO2 [Moles/Vol] 27 mmol/L Normal 21-31 [facility] Comment on above: Performed By: #### L [id number] ####[facility] H[facility] LAB (BEAKER)[address] [place] [address] Creatinine [Mass/Vol] 2.68 mg/dL High 0.60-1.20 [facility] Comment on above: Performed By: #### L [id number] ####[facility] H[facility]PITAL LAB (BEAKER)[address] [place] [address] GLOMERULAR FILTRATION RATE ML/MIN/1.73 SQ M.PREDICTED 19.5 mL/min/1.73m*2 Low >60.0 [facility] Comment on above: Result Comment: [facility]???s estimated glomerular filtration rate (eGFR) will [...] of individuals. Performed By: #### L [id number] ####[facility] ([facility])[address] [place] [address] Glucose [Mass/Vol] 134 mg/dL High 70-100 [facility] Comment on above: Performed By: #### L [id number] ####[facility] ([facility])[address] [place] [address] Potassium [Moles/Vol] 4.2 mmol/L Normal 3.5-5.1 [facility] Comment on above: Performed By: #### L [id number] ####[facility] ([facility])[address] [place] [address] Protein [Mass/Vol] 6.4 g/dL Normal 6.0-8.3 [facility] Comment on above: Performed By: #### L [id number] ####[facility] ([facility])[address] [facility] [address] Sodium [Moles/Vol] 142 mmol/L Normal 136-145 [facility] Comment on above: Performed By: #### L [id number] ####[facility] ([facility])[address] [facility] [address] Urea nitrogen [Mass/Vol] 38 mg/dL High 7-25 [facility] Comment on above: Performed By: #### L [id number] ####[facility] ([facility])[address] [place] [address] UREA NITROGEN/CREATININE (MASS RATIO) IN SER/PLAS 14.2 Normal [facility] Comment on above: Performed By: #### L [id number] ####[facility] ([facility])[address] [place] [address] HEMOGLOBIN A1Con 05-23-2024 Glucose [Mass/Vol] 154 mg/dL Normal [facility] Comment on above: Performed By: #### L [id number] ####[facility] ([facility])[address] [place] [address] HbA1c (Bld) [Mass fraction] 7.0 % High 4.0-6.0 [facility] Comment on above: Performed By: #### L [id number] ####[facility] ([facility])[address] [place] [address] LIPID PANELon 05-23-2024 CHOL/HDL 3.7 mg/dL Normal [facility] Comment on above: Performed By: #### L [id number] ####[facility] ([facility])[address] [place] [address] Cholesterol [Mass/Vol] 164 mg/dL Normal 120-200 [facility] Comment on above: Performed By: #### L [id number] ####[facility] ([facility])[address] [place] [address] Magnesium [Mass/Vol] 216 mg/dL High <150 [facility] Comment on above: Result Comment: TRIG LYCERIDE REFERENCE RANGE:20 YEARS AND OLDER CARDIOVASCULAR RISKLESS THAN 150 mg/dL LOW [id number] TO 199 mg/dL BORDERLINE AWIL097 mg/dL AND GREATER HIGH RISK Performed By: #### L [id number] ####[facility] ([facility])[address] [place] [address] Magnesium [Mass/Vol] 77 mg/dL Normal 0-160 [facility] Comment on above: Performed By: #### L [id number] ####[facility] ([facility])[address] [place] [address] Magnesium [Mass/Vol] 44 mg/dL Normal 23-92 [facility] Comment on above: Performed By: #### L [id number] ####[facility] ([facility])[address] [place] [address] NON HDL CHOL. (LDL+VLDL) 120 Normal [facility] Comment on above: Performed By: #### L [id number] ####[facility] ([facility])[address] [place] [address] TOTAL VLDL-C 43 mg/dL High 0-40 [facility] Comment on above: Performed By: #### L [id number] ####[facility] ([facility])[address] [place] [address] Labon 05-23-2024 Lab Normal [facility] MAGNESIUMon 05-23-2024 Magnesium [Mass/Vol] 2.0 mg/dL Normal 1.9-2.7 [facility] Comment on above: Performed By: #### L [id number] ####[facility] ([facility])[address] [place] [address] TACROLIMUS LEVELon Tacrolimus (Bld) [Mass/Vol] 4.2 ng/mL Low 5.0-20.0 [facility] Comment on above: Result Comment: The [employer] Tacrolimus assay is a delayed one-step immunoassay for the quantitative determination of tacrolimus in human whole blood using the chemiluminescent microparticle immunoassay (CMIA) technology with flexible assay protocols, referred to as Chemiflex. Performed By: #### L [id number] ####[facility] ([facility])[address] [place] [address] URIC ACIDon 05-23-2024 Magnesium [Mass/Vol] 3.0 mg/dL Normal 2.5-5.0 [facility] Comment on above: Performed By: #### L [id number] ####[facility] ([facility])[address] [facility] [address] Performed By: #### L [id number] ####[facility] ([facility])[address] [place] [address] BILIRUBIN, DIRECTon 04-22-19 Magnesium [Mass/Vol] 0.1 mg/dL Normal 0-0.2 [facility] Comment on above: Performed By: #### L [id number] ####[facility] ([facility])[address] [place] [address] CBC WITH AUTO DIFFERENTIALon 04-22-2024 Erythrocyte distribution width (RBC) [Ratio] 14.6 % Normal 11.5-15.0 [facility] Comment on above: Performed By: #### L [id number] ####[facility] ([facility])[address] [place] [address] ERYTHROCYTE MEAN CORPUSCULAR HEMOGLOBIN CONCENTRATION (G/DL) BY AUTOMATED 31.1 g/dL Low 32.0-35.0 [facility] Comment on above: Performed By: #### L [id number] ####[facility] ([facility])[address] [place] [address] Hematocrit (Bld) [Volume fraction] 39.2 % Normal 36.0-48.0 [facility] Comment on above: Performed By: #### L [id number] ####[facility] ([facility])[address] [place] [address] Hemoglobin (Bld) [Mass/Vol] 12.2 g/dL Normal 12.0-15.0 [facility] Comment on above: Performed By: #### L [id number] ####[facility] ([facility])[address] [place] [address] MCH (RBC) [Entitic mass] 28.4 pg Normal 27.0-33.0 [facility] Comment on above: Performed By: #### L [id number] ####[facility] (BEAKER)[address] [place] [address] MCV (RBC) [Entitic vol] 91.2 fL Normal 82.0-98.0 [facility] Comment on above: Performed By: #### L [id number] ####[facility] (BEAKER)[address] [place] [address] NRBC (PER 100 WBCS) BY AUTOMATED COUNT 0.0 % Normal 0 [facility] Comment on above: Performed By: #### L [id number] ####[facility] ([facility])[address] [place] [address] PLATELETS (10*3/UL) IN BLOOD AUTOMATED COUNT 258 10*3/uL Normal 150-400 [facility] Comment on above: Performed By: #### L [id number] ####[facility] ([facility])[address] [place] [address] RBC (Bld) [#/Vol] 4.30 10*6/uL Normal 3.80-5.00 [facility] Comment on above: Performed By: #### L [id number] ####[facility] ([facility])[address] [place] [address] WBC (Bld) [#/Vol] 12.09 10*3/uL High 4.00-10.60 [facility] Comment on above: Performed By: #### L [id number] ####[facility] ([facility])[address] [place] [address] COMPREHENSIVE METABOLIC PANE Macario 04-22-2024 Albumin [Mass/Vol] 3.8 g/dL Normal 3.5-5.7 [facility] Comment on above: Performed By: #### L [id number] ####[facility] ([facility])[address] [place] [address] ALP [Catalytic activity/Vol] 50 U/L Normal 34-104 [facility] Comment on above: Performed By: #### L [id number] ####[facility] (BEAKER)[address] [place] [address] ALT [Catalytic activity/Vol] 17 U/L Normal 7-52 [facility] Comment on above: Performed By: #### L [id number] ####[facility] (BEAKER)[address] [place] [address] Anion gap [Moles/Vol] 10 mmol/L Normal 7-20 [facility] Comment on above: Performed By: #### L [id number] ####[facility] HOSPITAL LAB (BEAKER)[address] [place] [address] AST [Catalytic activity/Vol] 18 U/L Normal 13-39 [facility] Comment on above: Performed By: #### L [id number] ####[facility] H[facility] LAB (BEAKER)[address] [place] [address] Bilirubin [Mass/Vol] 0.7 mg/dL Normal 0.3-1.0 [facility] Comment on above: Performed By: #### L [id number] ####[facility] (BEAKER)[address] [place] [address] Calcium [Mass/Vol] 10.0 mg/dL Normal 8.6-10.3 [facility] Comment on above: Performed By: #### L [id number] ####[facility] (BEAKER)[address] [place] [address] Chloride [Moles/Vol] 108 mmol/L High 98-107 [facility] Comment on above: Performed By: #### L [id number] ####[facility] H[facility] LAB (BEAKER)[address] [place] [address] CO2 [Moles/Vol] 25 mmol/L Normal 21-31 [facility] Comment on above: Performed By: #### L [id number] ####[facility] (BEAKER)[address] [place] [address] Creatinine [Mass/Vol] 2.79 mg/dL High 0.60-1.20 [facility] Comment on above: Performed By: #### L [id number] ####[facility] (BEAKER)[address] [place] [address] GLOMERULAR FILTRATION RATE ML/MIN/1.73 SQ M.PREDICTED 18.6 mL/min/1.73m*2 Low >60.0 [facility] Comment on above: Result Comment: [facility]???s estimated glomerular filtration rate (eGFR) will [...] of individuals. Performed By: #### L [id number] ####[facility] ([facility])[address] [place] [address] Glucose [Mass/Vol] 77 mg/dL Normal 70-100 [facility] Comment on above: Performed By: #### L [id number] ####[facility] ([facility])[address] [place] [address] Potassium [Moles/Vol] 3.7 mmol/L Normal 3.5-5.1 [facility] Comment on above: Performed By: #### L [id number] ####[facility] ([facility])[address] [place] [address] Protein [Mass/Vol] 6.6 g/dL Normal 6.0-8.3 [facility] Comment on above: Performed By: #### L [id number] ####[facility] ([facility])[address] [place] [address] Sodium [Moles/Vol] 139 mmol/L Normal 136-145 [facility] Comment on above: Performed By: #### L [id number] ####[facility] ([facility])[address] [place] [address] Urea nitrogen [Mass/Vol] 44 mg/dL High 7-25 [facility] Comment on above: Performed By: #### L [id number] ####[facility] ([facility])[address] [place] [address] UREA NITROGEN/CREATININE (MASS RATIO) IN SER/PLAS 15.8 Normal [facility] Comment on above: Performed By: #### L [id number] ####[facility] ([facility])[address] [place] [address] Labon 02-28-2025 Lab Normal [facility] MAGNESIUMon 04-22-2024 Magnesium [Mass/Vol] 2.1 mg/dL Normal 1.9-2.7 [facility] Comment on above: Performed By: #### L [id number] ####[facility] ([facility])[address] [place] [address] MANUAL DIFFERENTIALon 2024 BASOPHILS (10*3/UL) IN BLOOD BY CALCULATION 0.00 10*3/uL Normal 0.00-0.20 [facility] Comment on above: Performed By: #### L [id number] ####[facility] ([facility])[address] [place] [address] BASOPHILS/100 LEUKOCYTES IN BLOOD BY AUTOMATED COUNT 0.0 % Normal 0.0-1.0 [facility] Comment on above: Performed By: #### L [id number] ####[facility] ([facility])[address] [place] [address] EOSINOPHILS (10*3/UL) IN BLOOD BY CALCULATION 0.33 10*3/uL Normal 0.00-0.50 [facility] Comment on above: Performed By: #### L [id number] ####[facility] ([facility])[address] [place] [address] EOSINOPHILS/100 LEUKOCYTES IN BLOOD BY AUTOMATED COUNT 2.7 % Normal 0.0-6.0 [facility] Comment on above: Performed By: #### L [id number] ####[facility] ([facility])[address] [place] [address] IMMATURE GRANULOCYTES (10*3/UL) IN BLOOD BY CALCULATION 0.11 10*3/uL Normal 0.00-0.20 [facility] Comment on above: Performed By: #### L [id number] ####[facility] ([facility])[address] [place] [address] IMMATURE GRANULOCYTES/100 LEUKOCYTES IN BLOOD BY AUTOMATED COUNT 0.9 % Normal 0.0-1.0 [facility] Comment on above: Performed By: #### L [id number] ####[facility] ([facility])[address] [place] [address] LYMPHOCYTES (10*3/UL) IN BLOOD BY CALCULATION 2.48 10*3/uL Normal 1.20-4.00 [facility] Comment on above: Performed By: #### L [id number] ####[facility] ([facility])[address] [place] [address] LYMPHOCYTES/100 LEUKOCYTES IN BLOOD BY AUTOMATED COUNT 20.5 % Normal 20.0-45.0 [facility] Comment on above: Performed By: #### L [id number] ####[facility] ([facility])[address] [place] [address] MONOCYTES (10*3/UL) IN BLOOD BY CALCUATION 0.88 10*3/uL Normal 0.10-1.00 [facility] Comment on above: Performed By: #### L [id number] ####[facility] ([facility])[address] [place] [address] MONOCYTES/100 LEUKOCYTES IN BLOOD BY AUTOMATED COUNT 7.3 % Normal 5.0-12.0 [facility] Comment on above: Performed By: #### L [id number] ####[facility] ([facility])[address] [place] [address] NEUTROPHILS (10*3/UL) IN BLOOD BY CALCULATION 8.4 10*3/uL High 1.6-7.6 [facility] Comment on above: Performed By: #### L [id number] ####[facility] ([facility])[address] [place] [address] NEUTROPHILS/100 LEUKOCYTES IN BLOOD BY AUTOMATED COUNT 69.5 % Normal 40.0-72.0 [facility] Comment on above: Performed By: #### L [id number] ####[facility] ([facility])[address] [place] [address] PLASMA CELLS/100 LEUKOCYTES IN BLOOD 0 % Normal 0 [facility] Comment on above: Performed By: #### L [id number] ####[facility] ([facility])[address] [place] [address] PLATELETS GIANT PRESENCE IN BLOOD BY LIGHT MICROSCOPY Present Normal [facility] Comment on above: Performed By: #### L [id number] ####[facility] ([facility])[address] [place] [address] VARIANT LYMPHOCYTES (10*3/UL) IN BLOOD BY CALCULATION 0.00 10*3/uL Normal 0.00 [facility] Comment on above: Performed By: #### L [id number] ####[facility] ([facility])[address] [place] [address] VARIANT LYMPHOCYTES/100 LEUKOCYTES IN BLOOD CELLAVISION 0.0 % Normal 0.0-0.0 [facility] Comment on above: Performed By: #### L [id number] ####[facility] ([facility])[address] [place] [address] TACROLIMUS LEVELon Tacrolimus (Bld) [Mass/Vol] 3.3 ng/mL Low 5.0-20.0 [facility] Comment on above: Result Comment: The [employer] Tacrolimus assay is a delayed one-step immunoassay for the quantitative determination of tacrolimus in human whole blood using the chemiluminescent microparticle immunoassay (CMIA) technology with flexible assay protocols, referred to as Chemiflex. Performed By: #### L [id number] ####[facility] ([facility])[address] [place] [address] URIC ACIDon 04-22-2024 Magnesium [Mass/Vol] 3.6 mg/dL Normal 2.5-5.0 [facility] Comment on above: Performed By: #### L [id number] ####[facility] ([facility])[address] [place] [address] Performed By: #### L [id number] ####[facility] ([facility])[address] [place] [address] Procedure Visiton 04-08-2024 Procedure Visit Normal [facility] BILIRUBIN, DIRECTon 03-21-19 Magnesium [Mass/Vol] 0.1 mg/dL Normal 0-0.2 [facility] Comment on above: Performed By: #### L [id number] ####[facility] (BEAKER)[address] [place] [address] CBC WITH AUTO DIFFERENTIALon 03-21-2024 Basophils (Bld) [#/Vol] 0.05 10*3/uL Normal 0.00-0.20 [facility] Comment on above: Performed By: #### L [id number] ####[facility] ([facility])[address] [place] [address] Basophils/100 WBC (Bld) 0.6 % Normal 0.0-1.0 [facility] Comment on above: Performed By: #### L [id number] ####[facility] ([facility])[address] [place] [address] Eosinophils (Bld) [#/Vol] 0.14 10*3/uL Normal 0.00-0.50 [facility] Comment on above: Performed By: #### L [id number] ####[facility] ([facility])[address] [place] [address] Eosinophils/100 WBC (Bld) 1.6 % Normal 0.0-6.0 [facility] Comment on above: Performed By: #### L [id number] ####[facility] ([facility])[address] [place] [address] Erythrocyte distribution width (RBC) [Ratio] 13.8 % Normal 11.5-15.0 [facility] Comment on above: Performed By: #### L [id number] ####[facility] ([facility])[address] [place] [address] ERYTHROCYTE MEAN CORPUSCULAR HEMOGLOBIN CONCENTRATION (G/DL) BY AUTOMATED 31.1 g/dL Low 32.0-35.0 [facility] Comment on above: Performed By: #### L [id number] ####[facility] (BEAKER)[address] [place] [address] Hematocrit (Bld) [Volume fraction] 39.2 % Normal 36.0-48.0 [facility] Comment on above: Performed By: #### L [id number] ####[facility] (BEAKER)[address] [place] [address] Hemoglobin (Bld) [Mass/Vol] 12.2 g/dL Normal 12.0-15.0 [facility] Comment on above: Performed By: #### L [id number] ####[facility] (BEAKER)[address] [place] [address] Immature granulocytes (Bld) [#/Vol] 0.05 10*3/uL Normal 0.00-0.20 [facility] Comment on above: Performed By: #### L [id number] ####[facility] ([facility])[address] [place] [address] Immature granulocytes/100 WBC (Bld) 0.6 % Normal 0.0-1.0 [facility] Comment on above: Performed By: #### L [id number] ####[facility] (BEAKER)[address] [place] [address] Lymphocytes (Bld) [#/Vol] 2.57 10*3/uL Normal 1.20-4.00 [facility] Comment on above: Performed By: #### L [id number] ####[facility] (BEAKER)[address] [place] [address] Lymphocytes/100 WBC (Bld) 29.0 % Normal 20.0-45.0 [facility] Comment on above: Performed By: #### L [id number] ####[facility] (BEAKER)[address] [place] [address] MCH (RBC) [Entitic mass] 27.5 pg Normal 27.0-33.0 [facility] Comment on above: Performed By: #### L [id number] ####[facility] (BEAKER)[address] [place] [address] MCV (RBC) [Entitic vol] 88.3 fL Normal 82.0-98.0 [facility] Comment on above: Performed By: #### L [id number] ####[facility] (BEAKER)[address] [place] [address] Monocytes (Bld) [#/Vol] 1.17 10*3/uL High 0.10-1.00 [facility] Comment on above: Performed By: #### L [id number] ####[facility] (BEAKER)[address] [place] [address] Monocytes/100 WBC (Bld) 13.2 % High 5.0-12.0 [facility] Comment on above: Performed By: #### L [id number] ####[facility] (BEAKER)[address] [place] [address] Neutrophils (Bld) [#/Vol] 4.87 10*3/uL Normal 1.60-7.60 [facility] Comment on above: Performed By: #### L [id number] ####[facility] (BEAKER)[address] [place] [address] Neutrophils/100 WBC (Bld) 55.0 % Normal 40.0-72.0 [facility] Comment on above: Performed By: #### L [id number] ####[facility] (BEAKER)[address] [place] [address] NRBC (PER 100 WBCS) BY AUTOMATED COUNT 0.0 % Normal 0 [facility] Comment on above: Performed By: #### L [id number] ####[facility] (BEAKER)[address] [place] [address] PLATELETS (10*3/UL) IN BLOOD AUTOMATED COUNT 265 10*3/uL Normal 150-400 [facility] Comment on above: Performed By: #### L [id number] ####[facility] LAB (BEAKER)[address] [place] [address] RBC (Bld) [#/Vol] 4.44 10*6/uL Normal 3.80-5.00 [facility] Comment on above: Performed By: #### L [id number] ####[facility] LAB (BEAKER)[address] [place] [address] WBC (Bld) [#/Vol] 8.85 10*3/uL Normal 4.00-10.60 [facility] Comment on above: Performed By: #### L [id number] ####[facility] ([facility] [place])[address] [place] [address] COMPREHENSIVE METABOLIC PANE Macario 03-21-2024 Albumin [Mass/Vol] 3.7 g/dL Normal 3.5-5.7 [facility] Comment on above: Performed By: #### L [id number] ####[facility] ([facility] [place])[address] [place] [address] ALP [Catalytic activity/Vol] 55 U/L Normal 34-104 [facility] Comment on above: Performed By: #### L [id number] ####[facility] ([facility])[address] [place] [address] ALT [Catalytic activity/Vol] 18 U/L Normal 7-52 [facility] Comment on above: Performed By: #### L [id number] ####[facility] ([facility] [place])[address] [place] [address] Anion gap [Moles/Vol] 14 mmol/L Normal 7-20 [facility] Comment on above: Performed By: #### L [id number] ####[facility] ([facility])[address] [place] [address] AST [Catalytic activity/Vol] 20 U/L Normal 13-39 [facility] Comment on above: Performed By: #### L [id number] ####[facility] ([facility])[address] [place] [address] Bilirubin [Mass/Vol] 0.4 mg/dL Normal 0.3-1.0 [facility] Comment on above: Performed By: #### L [id number] ####[facility] ([facility])[address] [place] [address] Calcium [Mass/Vol] 9.6 mg/dL Normal 8.6-10.3 [facility] Comment on above: Performed By: #### L [id number] ####[facility] ([facility])[address] [place] [address] Chloride [Moles/Vol] 108 mmol/L High 98-107 [facility] Comment on above: Performed By: #### L [id number] ####[facility] ([facility])[address] [place] [address] CO2 [Moles/Vol] 21 mmol/L Normal 21-31 [facility] Comment on above: Performed By: #### L [id number] ####[facility] ([facility])[address] [place] [address] Creatinine [Mass/Vol] 2.89 mg/dL High 0.60-1.20 [facility] Comment on above: Performed By: #### L [id number] ####[facility] ([facility])[address] [place] [address] GLOMERULAR FILTRATION RATE ML/MIN/1.73 SQ M.PREDICTED 17.8 mL/min/1.73m*2 Low >60.0 [facility] Comment on above: Result Comment: [facility]???s estimated glomerular filtration rate (eGFR) will [...] of individuals. Performed By: #### L [id number] ####[facility] ([facility])[address] [place] [address] Glucose [Mass/Vol] 194 mg/dL High 70-100 [facility] Comment on above: Performed By: #### L [id number] ####[facility] ([facility])[address] [place] [address] Potassium [Moles/Vol] 3.7 mmol/L Normal 3.5-5.1 [facility] Comment on above: Performed By: #### L [id number] ####[facility] ([facility])[address] [place] [address] Protein [Mass/Vol] 6.7 g/dL Normal 6.0-8.3 [facility] Comment on above: Performed By: #### L [id number] ####[facility] ([facility])[address] [place] [address] Sodium [Moles/Vol] 139 mmol/L Normal 136-145 [facility] Comment on above: Performed By: #### L [id number] ####[facility] ([facility])[address] [place] [address] Urea nitrogen [Mass/Vol] 52 mg/dL High 7-25 [facility] Comment on above: Performed By: #### L [id number] ####[facility] ([facility])[address] [place] [address] UREA NITROGEN/CREATININE (MASS RATIO) IN SER/PLAS 18.0 Normal [facility] Comment on above: Performed By: #### L [id number] ####[facility] ([facility])[address] [place] [address] HEMOGLOBIN A1Con 03-21-2024 Glucose [Mass/Vol] 163 mg/dL Normal [facility] Comment on above: Performed By: #### L [id number] ####[facility] ([facility])[address] [place] [address] HbA1c (Bld) [Mass fraction] 7.3 % High 4.0-6.0 [facility] Comment on above: Performed By: #### L [id number] ####[facility] ([facility])[address] [place] [address] LIPID PANELon 03-21-2024 CHOL/HDL 4.9 mg/dL Normal [facility] Comment on above: Performed By: #### L [id number] ####[facility] ([facility])[address] [place] [address] Cholesterol [Mass/Vol] 209 mg/dL High 120-200 [facility] Comment on above: Performed By: #### L [id number] ####[facility] ([facility])[address] [place] [address] Magnesium [Mass/Vol] 294 mg/dL High 40-149 [facility] Comment on above: Result Comment: TRIG LYCERIDE REFERENCE RANGE:20 YEARS AND OLDER CARDIOVASCULAR RISKLESS THAN 150 mg/dL LOW [id number] TO 199 mg/dL BORDERLINE [id number] mg/dL AND GREATER HIGH RISK Performed By: #### L [id number] ####[facility] ([facility]ER)[address] [place] [address] Magnesium [Mass/Vol] 107 mg/dL Normal 0-160 [facility] Comment on above: Performed By: #### L [id number] ####[facility] ([facility]ER)[address] [place] [address] Magnesium [Mass/Vol] 43 mg/dL Normal 23-92 [facility] Comment on above: Performed By: #### L [id number] ####[facility] ([facility])[address] [place] [address] NON HDL CHOL. (LDL+VLDL) 166 Normal [facility] Comment on above: Performed By: #### L [id number] ####[facility] ([facility])[address] [place] [address] TOTAL VLDL-C 59 mg/dL High 0-40 [facility] Comment on above: Performed By: #### L [id number] ####[facility] ([facility])[address] [place] [address] Labon 03-21-2024 Lab Normal [facility] MAGNESIUMon 03-21-2024 Magnesium [Mass/Vol] 2.0 mg/dL Normal 1.9-2.7 [facility] Comment on above: Performed By: #### L [id number] ####[facility] ([facility])[address] [place] [address] PHOSPHORUSon 03-21-2024 Magnesium [Mass/Vol] 3.9 mg/dL Normal 2.5-5.0 [facility] Comment on above: Performed By: #### L [id number] ####[facility] ([facility])[address] [place] [address] TACROLIMUS LEVELon Tacrolimus (Bld) [Mass/Vol] 4.0 ng/mL Low 5.0-20.0 [facility] Comment on above: Result Comment: The [employer] Tacrolimus assay is a delayed one-step immunoassay for the quantitative determination of tacrolimus in human whole blood using the chemiluminescent microparticle immunoassay (CMIA) technology with flexible assay protocols, referred to as Chemiflex. Performed By: #### L [id number] ####[facility] ([facility])[address] [place] [address] URIC ACIDon 03-21-2024 Magnesium [Mass/Vol] 3.6 mg/dL Normal 2.3-6.6 [facility] Comment on above: Performed By: #### L [id number] ####[facility] ([facility])[address] [place] [address] Orders Onlyon 02-26-2024 Orders Only Normal [facility] Cardiac echo study Procedure Ordered By: Dangelo Burrows on 02-15-2024 Ao Root Index 1.86 cm/m2 [employer] Phone: Aortic Root 3.5 cm [employer] Phone: AV Area by Peak Velocity 3.7 cm2 [employer] Phone: AV Area by VTI 3.1 cm2 [employer] Phone: AV Mean Gradient 2 mmHg [employer] Phone: AV Mean Velocity 0.7 m/s [employer] Phone: AV Peak Gradient 3 mmHg [employer] Phone: AV Peak Velocity 0.9 m/s [employer] Phone: AV Velocity Ratio 1.00 Azam childers [employer] Work Phone: AV VTI 23.9 cm Azam Sirera [employer] Work Phone: JOSE/BSA Peak Velocity 2.0 cm2/m2 Azam [employer] Work Phone: JOSE/BSA VTI 1.6 cm2/m2 [employer] Work Phone: Body surface area Derived from formula 1.91 m2 [employer] Work Phone: E/E' Lateral 14.76 [facility]am [employer] Phone: E/E' Ratio (Averaged) 15.51 [facility]am [employer] Phone: E/E' Septal 16.26 [employer]am [employer] Work Phone: EF Physician 65 % Azam [employer] Work Phone: Est. RA Pressure 3 mmHg Azam bridges [employer] Work Phone: Fractional Shortening 2D 43 % 28 - 44 % Azam [employer] Work Phone: Interpretation and review of laboratory results Abnormal [employer] Work Phone: IVC Expiration 1.1 cm Azam lopez [employer] Work Phone: IVC Inspiration 0.4 cm Azam ahn [employer] Work Phone: IVSd 1.1 cm Abnormal 0.6 - 0.9 cm [employer] Work Phone: LA Area 2C 18.4 cm2 [employer] Work Phone: LA Area 4C 16.8 cm2 [employer] Work Phone: LA Diameter 3.6 cm [employer] Work Phone: LA Major [place] 4.7 cm [employer] Work Phone: LA Minor [place] 5.5 cm [employer] Work Phone: LA Size Index 1.91 cm/m2 [employer] Work Phone: LA Volume BP 49 mL 22 - 52 mL [employer] Work Phone: LA Volume Index BP 26 ml/m2 16 - 34 ml/m2 [employer] Work Phone: LA Volume Index MOD A2C 28 ml/m2 16 - 34 ml/m2 [employer] Work Phone: LA Volume Index MOD A4C 21 ml/m2 16 - 34 ml/m2 [employer] Work Phone: LA Volume MOD A2C 52 mL 22 - 52 mL [employer] Work Phone: LA Volume MOD A4C 40 mL 22 - 52 mL [employer] Work Phone: LA/AO Root Ratio 1.03 Bon [employer] Work Phone: LV E' Lateral Velocity 3.59 cm/s [employer] Work Phone: LV E' Septal Velocity 3.26 cm/s [employer] Phone: LV Mass 2D 227.7 g Abnormal 67 - 162 g [employer] Work Phone: LV Mass 2D Index 121.1 g/m2 Abnormal 43 - 95 g/m2 [employer] Work Phone: LV RWT Ratio 0.42 [employer] Work Phone: LVIDd 5.3 cm 3.9 - 5.3 cm [employer] Work Phone: LVIDd Index 2.82 cm/m2 [employer] Work Phone: LVIDs 3.0 cm [employer] Work Phone: LVIDs Index 1.60 cm/m2 [employer] Work Phone: [phone] LVOT Area 3.8 cm2 [employer] Phone: [phone] LVOT Diameter 2.2 cm [employer] Phone: [phone] LVOT Mean Gradient 2 mmHg [employer] Work Phone: [phone] LVOT Peak Gradient 3 mmHg [employer] Work Phone: [phone] LVOT Peak Velocity 0.9 m/s [employer] Work Phone: LVOT Stroke Volume Index 39.4 mL/m2 [employer] Phone: LVOT SV 74.1 ml [employer] Phone: LVOT VTI 19.5 cm [employer] Phone: LVOT:AV VTI Index 0.82 [employer] Phone: LVPWd 1.1 cm Abnormal 0.6 - 0.9 cm [employer] Phone: MV A Velocity 0.71 m/s [employer] Phone: MV E Velocity 0.53 m/s [employer] Phone: MV E Wave Deceleration Time 180.0 ms [employer] Phone: MV E/A 0.75 [employer] Phone: RV Basal Dimension 3.5 cm [employer] Phone: RV Free Wall Peak S' 14.0 cm/s [employer] Phone: [phone] RVSP 46 mmHg [employer] Work Phone: TR Max Velocity 3.27 m/s [employer] Work Phone: TR Peak Gradient 43 mmHg Azam Tracyo urs [employer] Work Phone: Azam Sierra [employer] Work Phone: Cardiac echo study Procedure on 02-15-2024 Left Ventricle: Norm al left ventricular systolic function with a visually [...] The left ventricular wall motion is normal. [facility] CV CPACS Radiology Study observation (narrative) Azam Sierra [facility] Orders Onlyon 01-29-2024 Orders Only Normal [facility] Clinical Supporton Clinical Support Normal [facility] Orders Onlyon 12-24-2023 Orders Only Normal [facility] Glucose (Bld) [Mass/Vol]Orde red By: Renata Fonseca on 12-15-2023 Glucose Blood, POC 203 mg/dL [facility] BILIRUBIN, DIRECTon 12-14-19 Magnesium [Mass/Vol] 0.1 mg/dL Normal 0-0.2 [facility] Comment on above: Performed By: #### L [id number] ####[facility] ([facility])[address] [place] [address] CBC WITH AUTO DIFFERENTIALon 12-14-2023 Basophils (Bld) [#/Vol] 0.05 10*3/uL Normal 0.00-0.20 [facility] Comment on above: Performed By: #### L [id number] ####[facility] ([facility])[address] [place] [address] Basophils/100 WBC (Bld) 0.6 % Normal 0.0-1.0 [facility] Comment on above: Performed By: #### L [id number] ####[facility] ([facility])[address] [place] [address] Eosinophils (Bld) [#/Vol] 0.15 10*3/uL Normal 0.00-0.50 [facility] Comment on above: Performed By: #### L [id number] ####[facility] ([facility])[address] [place] [address] Eosinophils/100 WBC (Bld) 1.9 % Normal 0.0-6.0 [facility] Comment on above: Performed By: #### L [id number] ####[facility] (BEAK[facility])[address] [place], [place] [address] Erythrocyte distribution width (RBC) [Ratio] 13.6 % Normal 11.5-15.0 [facility] Comment on above: Performed By: #### L [id number] ####[facility] ([facility])[address] [place] [address] ERYTHROCYTE MEAN CORPUSCULAR HEMOGLOBIN CONCENTRATION (G/DL) BY AUTOMATED 31.6 g/dL Low 32.0-35.0 [facility] Comment on above: Performed By: #### L [id number] ####[facility] (BE[facility]ER)[address] [place], [place] [address] Hematocrit (Bld) [Volume fraction] 44.3 % Normal 36.0-48.0 [facility] Comment on above: Performed By: #### L [id number] ####[facility] ([facility])[address] [place] [address] Hemoglobin (Bld) [Mass/Vol] 14.0 g/dL Normal 12.0-15.0 [facility] Comment on above: Performed By: #### L [id number] ####[facility] (AKER)[address] [place], [place] [address] Immature granulocytes (Bld) [#/Vol] 0.04 10*3/uL Normal 0.00-0.20 [facility] Comment on above: Performed By: #### L [id number] ####[facility] (BE[facility]ER)[address] [place], [place] [address] Immature granulocytes/100 WBC (Bld) 0.5 % Normal 0.0-1.0 [facility] Comment on above: Performed By: #### L [id number] ####[facility] (BE[facility])[address] [place], [place] [address] Lymphocytes (Bld) [#/Vol] 1.86 10*3/uL Normal 1.20-4.00 [facility] Comment on above: Performed By: #### L [id number] ####[facility] (BE[facility]ER)[address] [place] [address] Lymphocytes/100 WBC (Bld) 23.5 % Normal 20.0-45.0 [facility] Comment on above: Performed By: #### L [id number] ####[facility] (BEAKER)[address] [place] [address] MCH (RBC) [Entitic mass] 27.6 pg Normal 27.0-33.0 [facility] Comment on above: Performed By: #### L [id number] ####[facility] ([facility])[address] [place] [address] MCV (RBC) [Entitic vol] 87.4 fL Normal 82.0-98.0 [facility] Comment on above: Performed By: #### L [id number] ####[facility] ([facility])[address] [place] [address] Monocytes (Bld) [#/Vol] 1.03 10*3/uL High 0.10-1.00 [facility] Comment on above: Performed By: #### L [id number] ####[facility] (BE[facility]ER)[address] [place] [address] Monocytes/100 WBC (Bld) 13.0 % High 5.0-12.0 [facility] Comment on above: Performed By: #### L [id number] ####[facility] (BE[facility]ER)[address] [place] [address] Neutrophils (Bld) [#/Vol] 4.80 10*3/uL Normal 1.60-7.60 [facility] Comment on above: Performed By: #### L [id number] ####[facility] ([facility]ER)[address] [place] [address] Neutrophils/100 WBC (Bld) 60.5 % Normal 40.0-72.0 [facility] Comment on above: Performed By: #### L [id number] ####[facility] ([facility])[address] [place] [address] NRBC (PER 100 WBCS) BY AUTOMATED COUNT 0.0 % Normal 0 [facility] Comment on above: Performed By: #### L [id number] ####[facility] ([facility])[address] [place] [address] PLATELETS (10*3/UL) IN BLOOD AUTOMATED COUNT 246 10*3/uL Normal 150-400 [facility] Comment on above: Performed By: #### L [id number] ####[facility] ([facility])[address] [place] [address] RBC (Bld) [#/Vol] 5.07 10*6/uL High 3.80-5.00 [facility] Comment on above: Performed By: #### L [id number] ####[facility] ([facility])[address] [place] [address] WBC (Bld) [#/Vol] 7.93 10*3/uL Normal 4.00-10.60 [facility] Comment on above: Performed By: #### L [id number] ####[facility] ([facility])[address] [place] [address] COMPREHENSIVE METABOLIC PANE Macario 12-14-2023 Albumin [Mass/Vol] 3.7 g/dL Normal 3.5-5.7 [facility] Comment on above: Performed By: #### L [id number] ####[facility] ([facility])[address] [place] [address] ALP [Catalytic activity/Vol] 68 U/L Normal 34-104 [facility] Comment on above: Performed By: #### L [id number] ####[facility] ([facility])[address] [place] [address] ALT [Catalytic activity/Vol] 18 U/L Normal 7-52 [facility] Comment on above: Performed By: #### L [id number] ####[facility] (BE[facility]ER)[address] [place] [address] Anion gap [Moles/Vol] 14 mmol/L Normal 7-20 [facility] Comment on above: Performed By: #### L [id number] ####[facility] (BE[facility]ER)[address] [place] [address] AST [Catalytic activity/Vol] 22 U/L Normal 13-39 [facility] Comment on above: Performed By: #### L [id number] ####[facility] (BE[facility]ER)[address] [place] [address] Bilirubin [Mass/Vol] 0.6 mg/dL Normal 0.3-1.0 [facility] Comment on above: Performed By: #### L [id number] ####[facility] (BE[facility]ER)[address] [place] [address] Calcium [Mass/Vol] 9.4 mg/dL Normal 8.6-10.3 [facility] Comment on above: Performed By: #### L [id number] ####[facility] ([facility]ER)[address] [place] [address] Chloride [Moles/Vol] 108 mmol/L High 98-107 [facility] Comment on above: Performed By: #### L [id number] ####[facility] ([facility]ER)[address] [place] [address] CO2 [Moles/Vol] 22 mmol/L Normal 21-31 [facility] Comment on above: Performed By: #### L [id number] ####[facility] (BE[facility]ER)[address] [place] [address] Creatinine [Mass/Vol] 2.50 mg/dL High 0.60-1.20 [facility] Comment on above: Performed By: #### L [id number] ####[facility] ([facility]ER)[address] [place] [address] GLOMERULAR FILTRATION RATE ML/MIN/1.73 SQ M.PREDICTED 21.2 mL/min/1.73m*2 Low >60.0 [facility] Comment on above: Result Comment: [facility]???s estimated glomerular filtration rate (eGFR) will [...] of individuals. Performed By: #### L [id number] ####[facility] ([facility])[address] [place] [address] Glucose [Mass/Vol] 193 mg/dL High 70-100 [facility] Comment on above: Performed By: #### L [id number] ####[facility] ([facility])[address] [place] [address] Potassium [Moles/Vol] 3.8 mmol/L Normal 3.5-5.1 [facility] Comment on above: Performed By: #### L [id number] ####[facility] ([facility])[address] [place] [address] Protein [Mass/Vol] 6.7 g/dL Normal 6.0-8.3 [facility] Comment on above: Performed By: #### L [id number] ####[facility] ([facility])[address] [place] [address] Sodium [Moles/Vol] 140 mmol/L Normal 136-145 [facility] Comment on above: Performed By: #### L [id number] ####[facility] ([facility])[address] [place] [address] Urea nitrogen [Mass/Vol] 41 mg/dL High 7-25 [facility] Comment on above: Performed By: #### L [id number] ####[facility] ([facility])[address] [place] [address] UREA NITROGEN/CREATININE (MASS RATIO) IN SER/PLAS 16.4 Normal [facility] Comment on above: Performed By: #### L [id number] ####[facility] ([facility])[address] [place] [address] HEMOGLOBIN A1Con 12-14-2023 Glucose [Mass/Vol] 146 mg/dL Normal [facility] Comment on above: Order Comment: NO VA RIANT Performed By: #### L [id number] ####[facility] ([facility])[address] [place] [address] HbA1c (Bld) [Mass fraction] 6.7 % High 4.0-6.0 [facility] Comment on above: Order Comment: NO VA RIANT Performed By: #### L [id number] ####[facility] ([facility] [place] [address] LIPID PANELon 12-14-2023 CHOL/HDL 4.6 mg/dL Normal [facility] Comment on above: Performed By: #### L [id number] ####[facility] ([facility])[address] [place] [address] Cholesterol [Mass/Vol] 235 mg/dL High 120-200 [facility] Comment on above: Performed By: #### L [id number] ####[facility] ([facility])[address] [place] [address] Magnesium [Mass/Vol] 347 mg/dL High 40-149 [facility] Comment on above: Result Comment: TRIG LYCERIDE REFERENCE RANGE:20 YEARS AND OLDER CARDIOVASCULAR RISKLESS THAN 150 mg/dL LOW [id number] TO 199 mg/dL BORDERLINE [id number] mg/dL AND GREATER HIGH RISK Performed By: #### L [id number] ####[facility] ([facility])[address] [place] [address] Magnesium [Mass/Vol] 115 mg/dL Normal 0-160 [facility] Comment on above: Performed By: #### L [id number] ####[facility] ([facility])[address] [place] [address] Magnesium [Mass/Vol] 51 mg/dL Normal 23-92 [facility] Comment on above: Performed By: #### L [id number] ####[facility] (BEAKER)[address] [place] [address] NON HDL CHOL. (LDL+VLDL) 184 Normal [facility] Comment on above: Performed By: #### L [id number] ####[facility] ([facility])[address] [place] [address] TOTAL VLDL-C 69 mg/dL High 0-40 [facility] Comment on above: Performed By: #### L [id number] ####[facility] ([facility])[address] [place] [address] Labon 12-14-2023 Lab Normal [facility] MAGNESIUMon 12-14-2023 Magnesium [Mass/Vol] 1.8 mg/dL Low 1.9-2.7 [facility] Comment on above: Performed By: #### L [id number] ####[facility] ([facility])[address] [place] [address] PHOSPHORUSon 12-14-2023 Magnesium [Mass/Vol] 3.3 mg/dL Normal 2.5-5.0 [facility] Comment on above: Performed By: #### L [id number] ####[facility] ([facility])[address] [place] [address] TACROLIMUS LEVELon Tacrolimus (Bld) [Mass/Vol] 4.9 ng/mL Low 5.0-20.0 [facility] Comment on above: Result Comment: The [employer] Tacrolimus assay is a delayed one-step immunoassay for the quantitative determination of tacrolimus in human whole blood using the chemiluminescent microparticle immunoassay (CMIA) technology with flexible assay protocols, referred to as Chemiflex. Performed By: #### L [id number] ####[facility] [facility] ([facility])[address] [place] [address] URIC ACIDon 12-14-2023 Magnesium [Mass/Vol] 2.9 mg/dL Normal 2.3-6.6 [facility] Comment on above: Performed By: #### L [id number] ####[facility] ([facility])[address] [place] [address] Infusionon 12-11-2023 Infusion Normal [facility] URINALYSIS MICROSCOPIC WITH REFLEX CULTUREon 12-11-2023 RBC (#/HPF) IN URINE SEDIMENT 3-5 Abnormal None Seen, 0-2 [facility] Comment on above: Performed By: #### L [id number] ####[facility] ([facility])[address] [place] [address] SQUAMOUS EPITHELIAL CELLS (#/LPF) IN URINE SEDIMENT None Seen Normal None Seen, Occasional , Few [facility] Comment on above: Performed By: #### L [id number] ####[facility] ([facility])[address] [place] [address] WBC (LEUKOCYTE) (#/HPF) IN URINE SEDIMENT >50 Abnormal None Seen, 0-2 [facility] Comment on above: Performed By: #### L [id number] ####[facility] ([facility])[address] [place] [address] WBC (LEUKOCYTE) CLUMPS (#/HPF) IN URINE SEDIMENT Present Abnormal None Seen [facility] Comment on above: Performed By: #### L [id number] ####[facility] ([facility])[address] [place] [address] URINALYSIS WITH REFLEX CULTU REon 12-11-2023 BILIRUBIN, TOTAL PRESENCE IN URINE Negative Normal Negative [facility] Comment on above: Performed By: #### L [id number] ####[facility] ([facility])[address] [place] [address] Clarity (U) Cloudy Abnormal Clear [facility] Comment on above: Performed By: #### L [id number] ####[facility] ([facility])[address] [place] [address] Color (U) Light-Yellow Normal Colorless, Yellow, Light-Haralson ow [facility] Comment on above: Performed By: #### L [id number] ####[facility] ([facility])[address] [place] [address] Glucose (U) [Mass/Vol] 70 mg/dL Abnormal Normal [facility] Comment on above: Performed By: #### L [id number] ####[facility] ([facility])[address] [place] [address] HEMOGLOBIN PRESENCE IN URINE Small Abnormal Negative [facility] Comment on above: Performed By: #### L [id number] ####[facility] ([facility])[address] [place] [address] Ketones Ql (U) Negative Normal Negative [facility] Comment on above: Performed By: #### L [id number] ####[facility] ([facility])[address] [place] [address] LEUKOCYTE ESTERASE PRESENCE IN URINE BY TEST STRIP Large Abnormal Negative [facility] Comment on above: Performed By: #### L [id number] ####[facility] ([facility])[address] [place] [address] NITRITE PRESENCE IN URINE Negative Normal Negative [facility] Comment on above: Performed By: #### L [id number] ####[facility] ([facility])[address] [place] [address] pH (U) 7.0 [pH] Normal 5.0-8.0 [facility] Comment on above: Performed By: #### L [id number] ####[facility] ([facility])[address] [place] [address] Protein (U) [Mass/Vol] 100 mg/dL Abnormal Negative [facility] Comment on above: Performed By: #### L [id number] ####[facility] ([facility])[address] [place] [address] Specific gravity (U) [Rel density] 1.010 Normal 1.010-1.03 0 [facility] Comment on above: Performed By: #### L [id number] ####[facility] ([facility])[address] [place] [address] UROBILINOGEN (MG/DL) IN URINE Normal Normal Normal [facility] Comment on above: Performed By: #### L [id number] ####[facility] ([facility])[address] [place] [address] URINE CULTURE, ROUTINEon Bacteria identified Cx Nom (U) No growth at 48 hours Normal [facility] Comment on above: Performed By: #### L [id number] ####[facility] ([facility])[address] [place] [address] Orders Onlyon 12-10-2023 Orders Only Normal [facility] Orders Onlyon 12-04-2023 Orders Only Normal [facility] Basic Metab w/rfx MGon 11-15 Anion gap [Moles/Vol] 12 mmol/L Normal 9-16 [facility] Comment on above: Performed By: #### H EPXA, BMP, MG #### [facility] [address] [place] [address] Patient Service Representative: Gabe Freedman MD Calcium [Mass/Vol] 9.0 mg/dL Normal 8.6-10.4 [facility] Comment on above: Performed By: #### H EPXA, BMP, MG #### [employer] [address] [place] [address] Patient Service Representative: Gabe Freedman MD Chloride [Moles/Vol] 108 mmol/L High 98-107 [facility] Comment on above: Performed By: #### H EPXA, BMP, MG #### [employer] [address] [place] [address] Patient Service Representative: Gabe Freedman MD CO2 [Moles/Vol] 18 mmol/L Low 20-31 [facility] Comment on above: Performed By: #### H EPXA, BMP, MG #### [employer] [address] [place] [address] Patient Service Representative: Gabe Freedman MD Creatinine [Mass/Vol] 2.5 mg/dL High 0.50-0.90 [facility] Comment on above: Performed By: #### H EPXA, BMP, MG #### [employer] [address] [place] [address] Patient Service Representative: Gabe Freedman MD GFR/1.73 sq M.predicted among non-blacks MDRD (S/P/Bld) [Vol rate/Area] 21 mL/min/{1.73_m2} Low >60 [facility] Comment on above: Result Comment: These [...] affects renal tubular secretion. Performed By: #### H EPXA, BMP, MG #### [facility] [address] [place] [address] Patient Service Representative: Gabe Freedman MD Glucose [Mass/Vol] 150 mg/dL High 74-99 [facility] Comment on above: Performed By: #### H EPXA, BMP, MG #### [facility] [address] [place] [address] Patient Service Representative: Gabe Freedman MD Potassium [Moles/Vol] 3.9 mmol/L Normal 3.7-5.3 [facility] Comment on above: Performed By: #### H EPXA, BMP, MG #### [facility] [address] [place] [address] Patient Service Representative: Gabe Freedman MD Sodium [Moles/Vol] 138 mmol/L Normal 136-145 [facility] Comment on above: Performed By: #### H EPXA, BMP, MG #### [facility] [address] [place] [address] Patient Service Representative: Gabe Freedman MD Urea nitrogen [Mass/Vol] 32 mg/dL High 8-23 [facility] Comment on above: Performed By: #### H EPXA, BMP, MG #### [facility] [address] [place] [address] Patient Service Representative: Gabe Freedman MD Basic Metabolic Panel w/ Ref pedro to MGon 11-16-2023 Anion gap [Moles/Vol] 12 mmol/L 9 - 16 mmol/L [facility] Calcium [Mass/Vol] 9.0 mg/dL 8.6 - 10. 4 mg/dL [facility] Chloride [Moles/Vol] 108 mmol/L High 98 - 10 7 mmol/L [facility] CO2 [Moles/Vol] 18 mmol/L Low 20 - 31 mmol/L [facility] Creatinine [Mass/Vol] 2.5 mg/dL High 0.50 - 0.90 mg/dL [facility] Est, Glom Filt Rate 21 Low - PINF [facility] Glucose [Mass/Vol] 150 mg/dL High 74 - 99 mg/dL [facility] Interpretation and review of laboratory results Abnormal [facility] Potassium [Moles/Vol] 3.9 mmol/L 3.7 - 5.3 mmol/L [facility] Sodium [Moles/Vol] 138 mmol/L 136 - 145 mmol/L [facility] Urea nitrogen [Mass/Vol] 32 mg/dL High 8 - 23 mg/dL [facility] Glucose,Whole Bloodon 2023 Glucose [Mass/Vol] 204 mg/dL High 65-105 [facility] Glucose [Mass/Vol] 160 mg/dL High 65-105 [facility] POC Glucose Fingerstickon Glucose [Mass/Vol] 204 mg/dL High 65 - 105 mg/dL [facility] Interpretation and review of laboratory results Abnormal [facility] Glucose [Mass/Vol] 160 mg/dL High 65 - 105 mg/dL [facility] Interpretation and review of laboratory results Abnormal [facility] Basic Metabolic Panelon 10-25 Est, Glom Filt Rate 21 Low - PINF [facility] Interpretation and review of laboratory results Abnormal [facility] Basic Metabolic Profon 11-14 Anion gap [Moles/Vol] 10 mmol/L Normal 9-16 [facility] Comment on above: Performed By: #### B MP ####[facility] [address] [place], [place] [phone] Director: Gabe Freedman MD Calcium [Mass/Vol] 8.8 mg/dL Normal 8.6-10.4 [facility] Comment on above: Performed By: #### B MP ####[facility] [address] [place], [place] [phone] Director: Gabe Freedman MD Chloride [Moles/Vol] 107 mmol/L Normal 98-107 [facility] Comment on above: Performed By: #### B MP ####[facility] [address] [place], [place] [phone] Director: Gabe Freedman MD CO2 [Moles/Vol] 21 mmol/L Normal 20-31 [facility] Comment on above: Performed By: #### B MP ####[facility] [address] [place], [place] [phone] Director: Gabe Freedman MD Creatinine [Mass/Vol] 2.5 mg/dL High 0.50-0.90 [facility] Comment on above: Performed By: #### B MP ####[facility] [address] [place], [place] [phone] Director: Gabe Freedman MD Glucose [Mass/Vol] 168 mg/dL High 74-99 [facility] Comment on above: Performed By: #### B MP ####[facility] [address] [place], [place] [phone] Director: Gabe Freedman MD Potassium [Moles/Vol] 4.2 mmol/L Normal 3.7-5.3 [facility] Comment on above: Performed By: #### B MP ####[facility] [address] [place], [place] [phone] Director: Gabe Freedman MD Sodium [Moles/Vol] 138 mmol/L Normal 136-145 [facility] Comment on above: Performed By: #### B MP ####[facility] [address] [place] [address] lab Director: Gabe Freedman MD Urea nitrogen [Mass/Vol] 32 mg/dL High 8-23 [facility] Comment on above: Performed By: #### B MP ####[facility] [address] [place] [address] lab Director: Gabe Freedman MD GFR/1.73 sq M.predicted among non-blacks MDRD (S/P/Bld) [Vol rate/Area] 21 mL/min/{1.73_m2} Low >60 [facility] Comment on above: Result Comment: These [...] tubular secretion. Performed By: #### B MP ####[facility] [address] [place] [address] lab Director: Gabe Freedman MD Glucose,Whole Bloodon 2023 Glucose [Mass/Vol] 229 mg/dL High 65-105 [facility] Glucose [Mass/Vol] 348 mg/dL High 65-105 [facility] Glucose [Mass/Vol] 216 mg/dL High 65-105 [facility] Glucose [Mass/Vol] 153 mg/dL High 65-105 [facility] Inf Dis Interventionon 11-14 Intervention: De-escalation Normal [facility] Comment on above: Performed By: #### I DINV ####[facility] [address] [place], [place] [phone] lab Director: Gabe Freedman MD Infectious Disease Intervent ionon 11-15-2023 Intervention De-escalation [facility] POC Glucose Fingerstickon Glucose [Mass/Vol] 229 mg/dL High 65 - 105 mg/dL [facility] Interpretation and review of laboratory results Abnormal [facility] Glucose [Mass/Vol] 348 mg/dL High 65 - 105 mg/dL [facility] Interpretation and review of laboratory results Abnormal [facility] Glucose [Mass/Vol] 216 mg/dL High 65 - 105 mg/dL [facility] Interpretation and review of laboratory results Abnormal [facility] Glucose [Mass/Vol] 153 mg/dL High 65 - 105 mg/dL [facility] Interpretation and review of laboratory results Abnormal [facility] Anti-Xa, Unfractionated Hepa rinon 11-14-2023 Anti-XA Unfrac Heparin >2.00 IU/L [facility] Basic Metabolic Panelon 10-25 Anion gap [Moles/Vol] 11 mmol/L 9 - 16 mmol/L [facility] Calcium [Mass/Vol] 8.9 mg/dL 8.6 - 10. 4 mg/dL [facility] Chloride [Moles/Vol] 107 mmol/L 98 - 10 7 mmol/L [facility] CO2 [Moles/Vol] 23 mmol/L 20 - 31 mmol/L [facility] Creatinine [Mass/Vol] 2.8 mg/dL High 0.50 - 0.90 mg/dL [facility] Est, Glom Filt Rate 19 Low - PINF [facility] Glucose [Mass/Vol] 220 mg/dL High 74 - 99 mg/dL [facility] Interpretation and review of laboratory results Abnormal [facility] Potassium [Moles/Vol] 4.4 mmol/L 3.7 - 5.3 mmol/L [facility] Sodium [Moles/Vol] 141 mmol/L 136 - 145 mmol/L [facility] Urea nitrogen [Mass/Vol] 31 mg/dL High 8 - 23 mg/dL [facility] Basic Metabolic Profon 11-13 Anion gap [Moles/Vol] 11 mmol/L Normal 9-16 [facility] Comment on above: Performed By: #### H EPXA, BMP, MG #### [employer] [address] [place] [address] 98741 Patient Service Representative: Gabe Freedman MD Calcium [Mass/Vol] 8.9 mg/dL Normal 8.6-10.4 [facility] Comment on above: Performed By: #### H EPXA, BMP, MG #### [facility] [address] [place] [address]70 Patient Service Representative: Gabe Freedman MD Chloride [Moles/Vol] 107 mmol/L Normal 98-107 [facility] Comment on above: Performed By: #### H EPXA, BMP, MG #### [employer] [address] [place] [address] 78662 Patient Service Representative: Gabe Freedman MD CO2 [Moles/Vol] 23 mmol/L Normal 20-31 [facility] Comment on above: Performed By: #### H EPXA, BMP, MG #### [employer] [address] [place] [address] 60768 Patient Service Representative: Gabe Freedman MD Creatinine [Mass/Vol] 2.8 mg/dL High 0.50-0.90 [facility] Comment on above: Performed By: #### H EPXA, BMP, MG #### [facility] [address] [place] [address] 51691 Patient Service Representative: Gabe Freedman MD GFR/1.73 sq M.predicted among non-blacks MDRD (S/P/Bld) [Vol rate/Area] 19 mL/min/{1.73_m2} Low >60 [facility] Comment on above: Result Comment: These [...] affects renal tubular secretion. Performed By: #### H EPXA, BMP, MG #### [facility] [address] [place] [address] 98513 Patient Service Representative: Gabe Freedman MD Glucose [Mass/Vol] 220 mg/dL High 74-99 [facility] Comment on above: Performed By: #### H EPXA, BMP, MG #### [facility] [employer] [address] [place] [address] 01735 Patient Service Representative: Gabe Freedman MD Potassium [Moles/Vol] 4.4 mmol/L Normal 3.7-5.3 [facility] Comment on above: Performed By: #### H EPXA, BMP, MG #### [facility] [address] [place] [address]169 Patient Service Representative: Gabe Freedman MD Sodium [Moles/Vol] 141 mmol/L Normal 136-145 [facility] Comment on above: Performed By: #### H EPXA, BMP, MG #### [facility] [employer] [address] [place] [address] 90368 Patient Service Representative: Gabe Freedman MD Urea nitrogen [Mass/Vol] 31 mg/dL High 8-23 [facility] Comment on above: Performed By: #### H EPXA, BMP, MG #### [facility] [employer] [address] [place] [address]86 Patient Service Representative: Gabe Freedman MD Cult, Bloodon 11-14-2023 Cult, Blood Specimen Description .BLOOD Special Requests R HAND 6ML Culture NO GROWTH 5 DAYS Report Status FINAL 11/14/2023 Normal [facility] Comment on above: Performed By: #### B CUL2 ####[facility] [address] [place] [address] Lab Director: Gabe Freedman MD Cult,Bloodon 11-14-2023 Cult,Blood Specimen Description .BLOOD Special Requests R ARM 1ML Culture NO GROWTH 5 DAYS Report Status FINAL 11/14/2023 Normal [facility] Comment on above: Performed By: #### H EPXA #### [facility] [address] [place], [place] [phone] Patient Service Representative: Gabe Freedman MD Culture, Blood 1on 4 Microorganism identified Cx Nom (Unsp spec) NO GROWTH [address] [facility] [employer] Liaison Service comment (Unsp spec) [Interp] R ARM 1ML [facility] [employer]iaison Specimen Description .BLOOD [facility] [employer] Liaison Culture, Blood 2on 4 Microorganism identified Cx Nom (Unsp spec) NO GROWTH 5 DAYS [facility] Service comment (Unsp spec) [Interp] R HAND 6ML [facility] [employer]ia[employer] Specimen Description .BLOOD [facility] Glucose,Whole Bloodon 2023 Glucose [Mass/Vol] 272 mg/dL High 65-105 [facility] Glucose [Mass/Vol] 305 mg/dL High 65-105 [facility] Glucose [Mass/Vol] 275 mg/dL High 65-105 [facility] Glucose [Mass/Vol] 176 mg/dL High 65-105 [facility] Heparin Anti-Xaon 11-14-2023 Heparin Anti-Xa >2.00 Normal [facility] Comment on above: Result Comment: This test has not been validated or calibrated for therapies other than unfractionated heparin. Interpretation of the result in relation to other therapies must be done with caution and within clinical context. Performed By: #### H EPXA, BMP, MG #### [facility] [address] [place], [place] [phone] Patient Service Representative: Gabe Freedman MD POC Glucose Fingerstickon Glucose [Mass/Vol] 272 mg/dL High 65 - 105 mg/dL [facility] Interpretation and review of laboratory results Abnormal [facility] Glucose [Mass/Vol] 305 mg/dL High 65 - 105 mg/dL [facility] Interpretation and review of laboratory results Abnormal [facility] Glucose [Mass/Vol] 275 mg/dL High 65 - 105 mg/dL [facility] Interpretation and review of laboratory results Abnormal [facility] Glucose [Mass/Vol] 176 mg/dL High 65 - 105 mg/dL [facility] Interpretation and review of laboratory results Abnormal [facility] Prografon 11-14-2023 Prograf 4.7 ng/mL Normal [facility] Comment on above: Result Comment: (NOT [...] developed and its performance characteristics determined by [employer]. It has not been cleared or approved by the [place] Food and Drug Administration. This test was performed in a CLIA certified laboratory and is intended for clinical purposes. Performed By: [facility] [address] [place] [address] Animal Ecologist: Young Lopez MD, PhD CLIA Number: [id number] Performed By: #### H EPXA, BMP, MG #### [employer] [facility] [address] [place], [place] [phone] Patient Service Representative: Gabe Freedman MD Tacrolimus Levelon Tacrolimus (Bld) [Mass/Vol] 4.7 ng/mL [facility] Anti-Xa, Unfractionated Hepa rinon 11-13-2023 Anti-XA Unfrac Heparin >2.00 IU/L [facility] Basic Metabolic Panelon 10-25 Anion gap [Moles/Vol] 11 mmol/L 9 - 16 mmol/L [facility] Calcium [Mass/Vol] 8.0 mg/dL Low 8.6 - 10. 4 mg/dL [facility] Chloride [Moles/Vol] 103 mmol/L 98 - 10 7 mmol/L [facility] CO2 [Moles/Vol] 23 mmol/L 20 - 31 mmol/L [facility] Creatinine [Mass/Vol] 2.8 mg/dL High 0.50 - 0.90 mg/dL [facility] Est, Glom Filt Rate 18 Low - PINF [facility] Glucose [Mass/Vol] 185 mg/dL High 74 - 99 mg/dL [facility] Interpretation and review of laboratory results Abnormal [facility] Potassium [Moles/Vol] 4.0 mmol/L 3.7 - 5.3 mmol/L [facility] Sodium [Moles/Vol] 137 mmol/L 136 - 145 mmol/L [facility] Urea nitrogen [Mass/Vol] 26 mg/dL High 8 - 23 mg/dL [facility] Basic Metabolic Profon 11-12 Anion gap [Moles/Vol] 11 mmol/L Normal 9-16 [facility] Comment on above: Performed By: #### H EPXA, BMP, MG #### [facility] [address] [place], [place] [phone] Patient Service Representative: Gabe Freedman MD Calcium [Mass/Vol] 8.0 mg/dL Low 8.6-10.4 [facility] Comment on above: Performed By: #### H EPXA, BMP, MG #### [facility] [address] [place] [address] Patient Service Representative: Gabe Freedman MD Chloride [Moles/Vol] 103 mmol/L Normal 98-107 [facility] Comment on above: Performed By: #### H EPXA, BMP, MG #### [facility] [address] [place] [address] Patient Service Representative: Gabe Freedman MD CO2 [Moles/Vol] 23 mmol/L Normal 20-31 [facility] Comment on above: Performed By: #### H EPXA, BMP, MG #### [facility] [address] [place] [address] 89683 Patient Service Representative: Gabe Freedman MD Creatinine [Mass/Vol] 2.8 mg/dL High 0.50-0.90 [facility] Comment on above: Performed By: #### H EPXA, BMP, MG #### [facility] [address] [place] [address]239 Patient Service Representative: Gabe Freedman MD GFR/1.73 sq M.predicted among non-blacks MDRD (S/P/Bld) [Vol rate/Area] 18 mL/min/{1.73_m2} Low >60 [facility] Comment on above: Result Comment: These [...] affects renal tubular secretion. Performed By: #### H EPXA, BMP, MG #### [facility] [address] [place] [address]873 Patient Service Representative: Gabe Freedman MD Glucose [Mass/Vol] 185 mg/dL High 74-99 [facility] Comment on above: Performed By: #### H EPXA, BMP, MG #### [facility] [address] [place] [address] Patient Service Representative: Gabe Freedman MD Potassium [Moles/Vol] 4.0 mmol/L Normal 3.7-5.3 [facility] Comment on above: Performed By: #### H EPXA, BMP, MG #### [facility] [address] [place] [address] Patient Service Representative: Gabe Freedman MD Sodium [Moles/Vol] 137 mmol/L Normal 136-145 [facility] Comment on above: Performed By: #### H EPXA, BMP, MG #### [facility] [address] [place] [address]197 Patient Service Representative: Gabe Freedman MD Urea nitrogen [Mass/Vol] 26 mg/dL High 8-23 [facility] Comment on above: Performed By: #### H EPXA, BMP, MG #### [facility] [address] [place] [address] 57430 Patient Service Representative: Gabe Freedman MD Glucose,Whole Bloodon 2023 Glucose [Mass/Vol] 270 mg/dL High 65-105 [facility] Glucose [Mass/Vol] 286 mg/dL High 65-105 [facility] Glucose [Mass/Vol] 276 mg/dL High 65-105 [facility] Glucose [Mass/Vol] 139 mg/dL High 65-105 [facility] Heparin Anti-Xaon 11-13-2023 Heparin Anti-Xa >2.00 Normal [facility] Comment on above: Result Comment: This test has not been validated or calibrated for therapies other than unfractionated heparin. Interpretation of the result in relation to other therapies must be done with caution and within clinical context. Performed By: #### H EPXA, BMP, MG #### [facility] [address] [place] [address] Patient Service Representative: Gabe Freedman MD Magnesiumon 11-13-2023 Magnesium [Mass/Vol] 2.0 mg/dL 1.6 - 2 .4 mg/dL [facility] Magnesium [Mass/Vol] 2.0 mg/dL Normal 1.6-2.4 [facility] Comment on above: Performed By: #### H EPXA, BMP, MG #### [facility] [address] [place], [place] [id number] Patient Service Representative: Gabe Freedman MD No Panel Informationon 11-12 [facility] POC Glucose Fingerstickon Glucose [Mass/Vol] 270 mg/dL High 65 - 105 mg/dL [facility] Interpretation and review of laboratory results Abnormal [facility] Glucose [Mass/Vol] 286 mg/dL High 65 - 105 mg/dL [facility] Interpretation and review of laboratory results Abnormal [facility] Glucose [Mass/Vol] 276 mg/dL High 65 - 105 mg/dL [facility] Interpretation and review of laboratory results Abnormal [facility] Glucose [Mass/Vol] 139 mg/dL High 65 - 105 mg/dL [facility] Interpretation and review of laboratory results Abnormal [facility] Anti-Xa, Unfractionated Hepa rinon 11-12-2023 Anti-XA Unfrac Heparin 0.39 IU/L [facility] Basic Metabolic Panelon 10-24 Est, Glom Filt Rate 16 Low - PINF [facility] Interpretation and review of laboratory results Abnormal [facility] Basic Metabolic Profon 11-11 Anion gap [Moles/Vol] 15 mmol/L Normal - [facility] Comment on above: Performed By: #### H EPXA, BMP, MG #### [facility] [address] [place], [place] [id number] Patient Service Representative: Gabe Freedman MD Calcium [Mass/Vol] 7.9 mg/dL Low 8.6-10.4 [facility] Comment on above: Performed By: #### H EPXA, BMP, MG #### [facility] [employer] [address] [place] [address] Patient Service Representative: Gabe Freedman MD Chloride [Moles/Vol] 106 mmol/L Normal 98-107 [facility] Comment on above: Performed By: #### H EPXA, BMP, MG #### [facility] [address] [place] [address] Patient Service Representative: Gabe Freedman MD CO2 [Moles/Vol] 17 mmol/L Low 20-31 [facility] Comment on above: Performed By: #### H EPXA BMP, MG #### [facility] [address] [place] [address] Patient Service Representative: Gabe Freedman MD Creatinine [Mass/Vol] 3.2 mg/dL High 0.50-0.90 [facility] Comment on above: Performed By: #### H EPXA BMP, MG #### [facility] [address] [place] [address] Patient Service Representative: Gabe Freedman MD Glucose [Mass/Vol] 232 mg/dL High 74-99 [facility] Comment on above: Performed By: #### H EPXA BMP, MG #### [facility] [address] [place] [address] Patient Service Representative: Gabe Freedman MD Potassium [Moles/Vol] 4.0 mmol/L Normal 3.7-5.3 [facility] Comment on above: Performed By: #### H EPXA, BMP, MG #### [facility] [address] [place] [address] Patient Service Representative: Gabe Freedman MD Sodium [Moles/Vol] 138 mmol/L Normal 136-145 [facility] Comment on above: Performed By: #### H EPXA, BMP, MG #### [facility] [address] [place], [place] [phone] Patient Service Representative: Gabe Freedman MD Urea nitrogen [Mass/Vol] 27 mg/dL High 8-23 [facility] [employer] Liaison Comment on above: Performed By: #### H EPXA, BMP, MG #### [facility] [address] [place], [place] [phone] Patient Service Representative: Gabe Freedman MD GFR/1.73 sq M.predicted among non-blacks MDRD (S/P/Bld) [Vol rate/Area] 16 mL/min/{1.73_m2} Low >60 [facility] Comment on above: Result Comment: These [...] affects renal tubular secretion. Performed By: #### H EPXA, BMP, MG #### [facility] [address] [place], [place] [phone] Patient Service Representative: Gabe Freedman MD CBC with Auto Differentialon 11-12-2023 Basophils (Bld) [#/Vol] [facility] Basophils/100 WBC (Bld) 0 % 0 - 2 % [facility] Eosinophils (Bld) [#/Vol] 0.13 10*3/uL [facility] Eosinophils/100 WBC (Bld) 1 % 1 - 4 % [facility] Erythrocyte distribution width (RBC) [Ratio] 13.8 % 11.8 - 14.4 % [facility] Hematocrit (Bld) [Volume fraction] 36.3 % 36.3 - 47.1 % [facility] Hemoglobin (Bld) [Mass/Vol] 11.0 g/dL Low 11.9 - 15.1 g/dL [facility]ITAL[facility] [employer] Immature granulocytes (Bld) [#/Vol] 0.05 10*3/uL [facility] Immature granulocytes/100 WBC (Bld) 1 % High 0 [facility] Interpretation and review of laboratory results Abnormal [facility] Lymphocytes/100 WBC (Bld) 16 % Low 24 - 43 % [facility] Lymphocytes/100 WBC (Bld) 1.55 % [facility] MCH (RBC) [Entitic mass] 28.1 pg 25.2 - 33.5 pg [facility] MCHC (RBC) [Mass/Vol] 30.3 g/dL 28.4 - 34.8 g/dL [facility] MCV (RBC) [Entitic vol] 92.8 fL 82.6 - 102.[address] [facility] Monocytes/100 WBC (Bld) 12 % 3 - 12 % [facility] Monocytes/100 WBC (Bld) 1.15 % [facility] Neutrophils/100 WBC (Bld) 70 % High 36 - 65 % [facility] Nucleated RBC/100 WBC (Bld) [Ratio] 0.0 % 0.0 per 100 WBC [facility] Platelet mean volume (Bld) [Entitic vol] 11.7 fL 8.1 - 13.5 fL [facility] Platelets (Bld) [#/Vol] 89 10*3/uL Low [facility] RBC (Bld) [#/Vol] 3.91 10*6/uL Low 3.95 - 5.11 m/uL [facility] Segmented neutrophils/100 WBC (Bld) 6.72 % [facility] WBC other (Bld) [#/Vol] 9.6 [facility] CBC with Diffon 11-12-2023 Abs. Basophil <0.03 Normal 0.00-0.20 [facility] Comment on above: Performed By: #### H EPXA, BMP, MG #### [facility] [place], [place] [id number] Patient Service Representative: Gabe Freedman MD Abs.Imm.Granulocyte 0.05 k/uL Normal 0.00-0.30 [facility] Comment on above: Performed By: #### H EPXA, BMP, MG #### [facility] [employer] [address] [place] [address] Patient Service Representative: Gabe Freedman MD Abs.Neutrophil (Seg) 6.72 k/uL Normal 1.50-8.10 [facility] Comment on above: Performed By: #### H EPXA, BMP, MG #### [facility] [employer] [address] [place] [address] Patient Service Representative: Gabe Freedman MD Basophils/100 WBC (Bld) 0 % Normal 0-2 [facility] Comment on above: Performed By: #### H EPXA, BMP, MG #### [facility] [employer] [address] [place] [address] Patient Service Representative: Gabe Freedman MD Eosinophils (Bld) [#/Vol] 0.13 10*3/uL Normal 0.00-0.44 [facility] Comment on above: Performed By: #### H EPXA, BMP, MG #### [facility] [employer] [address] [place] [address] Patient Service Representative: Gabe Freedman MD Eosinophils/100 WBC (Bld) 1 % Normal 1-4 [facility] Comment on above: Performed By: #### H EPXA, BMP, MG #### [facility] [employer] [address] [place] [address] Patient Service Representative: Gabe Freedman MD Erythrocyte distribution width (RBC) [Ratio] 13.8 % Normal 11.8-14.4 [facility] Comment on above: Performed By: #### H EPXA, BMP, MG #### [facility] [employer] [address] [place] [address] Patient Service Representative: Gabe Freedman MD Hematocrit (Bld) [Volume fraction] 36.3 % Normal 36.3-47.1 [facility] Comment on above: Performed By: #### H EPXA, BMP, MG #### [facility] [address] [place] [address] Patient Service Representative: Gabe Freedman MD Hemoglobin (Bld) [Mass/Vol] 11.0 g/dL Low 11.9-15.1 [facility] Comment on above: Performed By: #### H EPXA, BMP, MG #### [facility] [address] [place] [address] Patient Service Representative: Gabe Freedman MD Immature granulocytes/100 WBC (Bld) 1 % High 0 [facility] Comment on above: Performed By: #### H EPXA, BMP, MG #### [facility] [employer] [address] [place] [address]24 Patient Service Representative: Gabe Freedman MD Lymphocytes (Bld) [#/Vol] 1.55 10*3/uL Normal 1.10-3.70 [facility] Comment on above: Performed By: #### H EPXA, BMP, MG #### [facility] [address] [place] [address]67 Patient Service Representative: Gabe Freedman MD Lymphocytes/100 WBC (Bld) 16 % Low 24-43 [facility] Comment on above: Performed By: #### H EPXA, BMP, MG #### [facility] [address] [place] [address] Patient Service Representative: Gabe Freedman MD MCH (RBC) [Entitic mass] 28.1 pg Normal 25.2-33.5 [facility] Comment on above: Performed By: #### H EPXA, BMP, MG #### [facility] [employer] [address] [place] [address] Patient Service Representative: Gabe Freedman MD MCHC (RBC) [Mass/Vol] 30.3 g/dL Normal 28.4-34.8 [facility] Comment on above: Performed By: #### H EPXA, BMP, MG #### [address] [address] Patient Service Representative: Gabe Freedman MD MCV (RBC) [Entitic vol] 92.8 fL Normal 82.6-102.9 [facility] Comment on above: Performed By: #### H EPXA, BMP, MG #### [address] [address] Patient Service Representative: Gabe Freedman MD Monocytes (Bld) [#/Vol] 1.15 10*3/uL Normal 0.10-1.20 [facility] Comment on above: Performed By: #### H EPXA, BMP, MG #### [address] [address] Patient Service Representative: Gabe Freedman MD Monocytes/100 WBC (Bld) 12 % Normal 3-12 [facility] Comment on above: Performed By: #### H EPXA, BMP, MG #### [address] [address] Patient Service Representative: Gabe Freedman MD Neutrophil (Seg) 70 % High 36-[address] [facility] Comment on above: Performed By: #### H EPXA, BMP, MG #### [address] [address] Patient Service Representative: Gabe Freedman MD NRBC Automated 0.0 per 100 WBC Normal 0.0 [facility] Comment on above: Performed By: #### H EPXA, BMP, MG #### [facility] [employer] [address] [place] [address]23 Patient Service Representative: Gabe Freedman MD Platelet mean volume (Bld) [Entitic vol] 11.7 fL Normal 8.1-13.5 [facility] Comment on above: Performed By: #### H EPXA, BMP, MG #### [facility] [address] [place] [address], [place] [address] Patient Service Representative: Gabe Freedman MD Platelets (Bld) [#/Vol] 89 10*3/uL Low 138-453 [facility] Comment on above: Performed By: #### H EPXA, BMP, MG #### [facility] [address] [place] [address] Patient Service Representative: Gabe Freedman MD RBC (Bld) [#/Vol] 3.91 10*6/uL Low 3.95-5.11 [facility] Comment on above: Performed By: #### H EPXA, BMP, MG #### [facility] [address] [place] [address] 17970 Patient Service Representative: Gabe Freedman MD WBC (Bld) [#/Vol] 9.6 10*3/uL Normal 3.5-11.3 [facility] Comment on above: Performed By: #### H EPXA, BMP, MG #### [facility] [address] [place] [address] Patient Service Representative: Gabe Freedman MD Glucose,Whole Bloodon 2023 Glucose [Mass/Vol] 358 mg/dL High 65-105 [facility] Glucose [Mass/Vol] 311 mg/dL High 65-105 [facility] Glucose [Mass/Vol] 178 mg/dL High 65-105 [facility] Glucose [Mass/Vol] 197 mg/dL High 65-105 [facility] Heparin Anti-Xaon 11-12-2023 Heparin Anti-Xa 0.39 IU/L Normal [facility] Comment on above: Result Comment: This test has not been validated or calibrated for therapies other than unfractionated heparin. Interpretation of the result in relation to other therapies must be done with caution and within clinical context. Performed By: #### H EPXA, BMP, MG #### [facility] [address] [place] [address] Patient Service Representative: Gabe Freedman MD Magnesiumon 11-12-2023 Magnesium [Mass/Vol] 2.0 mg/dL 1.6 - 2 .4 mg/dL [facility] Magnesium [Mass/Vol] 2.0 mg/dL Normal 1.6-2.4 [facility] Comment on above: Performed By: #### H EPXA, BMP, MG #### [facility] [address] [place] [address] Patient Service Representative: Gabe Freedman MD Orders Onlyon 11-12-2023 Orders Only Normal [facility] POC Glucose Fingerstickon Glucose [Mass/Vol] 358 mg/dL High 65 - 105 mg/dL [facility] Interpretation and review of laboratory results Abnormal [facility] Glucose [Mass/Vol] 311 mg/dL High 65 - 105 mg/dL [facility] Interpretation and review of laboratory results Abnormal [facility] Glucose [Mass/Vol] 178 mg/dL High 65 - 105 mg/dL [facility] Interpretation and review of laboratory results Abnormal [facility] Glucose [Mass/Vol] 197 mg/dL High 65 - 105 mg/dL [facility] Interpretation and review of laboratory results Abnormal [facility] Anti-Xa, Unfractionated Hepa rinon 11-11-2023 Anti-XA Unfrac Heparin 0.52 IU/L [facility] Anti-XA Unfrac Heparin 0.55 IU/L [facility] Anti-XA Unfrac Heparin 0.80 IU/L [facility] Basic Metab w/rfx MGon 11-10 Anion gap [Moles/Vol] 10 mmol/L Normal 9-16 [facility] Comment on above: Performed By: #### M G, BMPX ####[facility] [address] [place] [address] Lab Director: Gabe Freedman MD Calcium [Mass/Vol] 7.6 mg/dL Low 8.6-10.4 [facility] Comment on above: Performed By: #### M G, BMPX ####[place] [address] [place], [place] [phone] Director: Gabe Freedman MD Chloride [Moles/Vol] 108 mmol/L High 98-107 [facility] Comment on above: Performed By: #### M G, BMPX ####[facility] [address] [place], [place] [phone])[phone] Director: Gabe Freedman MD CO2 [Moles/Vol] 20 mmol/L Normal 20-31 [facility] Comment on above: Performed By: #### M G, BMPX ####[address] [address] Lab Director: Gabe Freedman MD Creatinine [Mass/Vol] 3.4 mg/dL High 0.50-0.90 [facility] Comment on above: Performed By: #### M G, BMPX ####[address] [address] Lab Director: Gabe Freedman MD GFR/1.73 sq M.predicted among non-blacks MDRD (S/P/Bld) [Vol rate/Area] 15 mL/min/{1.73_m2} Low >60 [facility] Comment on above: Result Comment: These [...] renal tubular secretion. Performed By: #### M G, BMPX ####[address] [address] lab Director: Gabe Freedman MD Glucose [Mass/Vol] 257 mg/dL High 74-99 [facility] Comment on above: Performed By: #### M G, BMPX ####[facility] [address] [place] [address] lab Director: Gabe Freedman MD Potassium [Moles/Vol] 4.3 mmol/L Normal 3.7-5.3 [facility] Comment on above: Performed By: #### M G, BMPX ####[facility] [address] [place] [address] lab Director: Gabe Freedman MD Sodium [Moles/Vol] 138 mmol/L Normal 136-145 [facility] Comment on above: Performed By: #### M G, BMPX ####[facility] [address] [place] [address] lab Director: Gabe Freedman MD Urea nitrogen [Mass/Vol] 30 mg/dL High 8-23 [facility] Comment on above: Performed By: #### M G, BMPX ####[facility] [address] [place] [address] lab Director: Gabe Freedman MD Basic Metabolic Panel w/ Ref pedro to MGon 11-11-2023 Anion gap [Moles/Vol] 10 mmol/L 9 - 16 mmol/L [facility] [employer] Calcium [Mass/Vol] 7.6 mg/dL Low 8.6 - 10. 4 mg/dL [facility] [employer] Chloride [Moles/Vol] 108 mmol/L High 98 - 10 7 mmol/L [facility] [employer] CO2 [Moles/Vol] 20 mmol/L 20 - 31 mmol/L [facility] Creatinine [Mass/Vol] 3.4 mg/dL High 0.50 - 0.90 mg/dL [facility] [employer]iaison Est, Glom Filt Rate 15 Low - [facility] Glucose [Mass/Vol] 257 mg/dL High 74 - 99 mg/dL [facility] Interpretation and review of laboratory results Abnormal [facility] Potassium [Moles/Vol] 4.3 mmol/L 3.7 - 5.3 mmol/L [facility] Sodium [Moles/Vol] 138 mmol/L 136 - 145 mmol/L [facility] Urea nitrogen [Mass/Vol] 30 mg/dL High 8 - 23 mg/dL [facility] CBC with Auto Differentialon 11-11-2023 Basophils (Bld) [#/Vol] 0.05 10*3/uL [facility] Basophils/100 WBC (Bld) 0 % 0 - 2 % [facility] Eosinophils (Bld) [#/Vol] 0.06 10*3/uL [facility] Eosinophils/100 WBC (Bld) 1 % 1 - 4 % [facility] Erythrocyte distribution width (RBC) [Ratio] 14.1 % 11.8 - 14.4 % [facility] Hematocrit (Bld) [Volume fraction] 39.1 % 36.3 - 47.1 % [facility] Hemoglobin (Bld) [Mass/Vol] 12.1 g/dL 11.9 - 15.1 g/dL [facility] Immature granulocytes (Bld) [#/Vol] 0.08 10*3/uL [facility] Immature granulocytes/100 WBC (Bld) 1 % High 0 [facility] Interpretation and review of laboratory results Abnormal [facility] Lymphocytes/100 WBC (Bld) 14 % Low 24 - 43 % [facility] Lymphocytes/100 WBC (Bld) 1.56 % [facility] MCH (RBC) [Entitic mass] 27.6 pg 25.2 - 33.5 pg [facility] MCHC (RBC) [Mass/Vol] 30.9 g/dL 28.4 - 34.8 g/dL [facility] MCV (RBC) [Entitic vol] 89.3 fL 82.6 - 102.9 fL [facility] Monocytes/100 WBC (Bld) 13 % High 3 - 12 % [facility] Monocytes/100 WBC (Bld) 1.40 % High [facility] Neutrophils/100 WBC (Bld) 72 % High 36 - 65 % [facility] Nucleated RBC/100 WBC (Bld) [Ratio] 0.0 % 0.0 per 100 WBC [facility] Platelet mean volume (Bld) [Entitic vol] 11.5 fL 8.1 - 13.5 fL [facility] Platelets (Bld) [#/Vol] 91 10*3/uL Low [facility] RBC (Bld) [#/Vol] 4.38 10*6/uL 3.95 - 5.11 m/uL [facility] Segmented neutrophils/100 WBC (Bld) 8.00 % [facility] WBC other (Bld) [#/Vol] 11.2 [facility] CBC with Diffon 11-11-2023 Abs. Basophil 0.05 k/uL Normal 0.00-0.20 [facility] Comment on above: Performed By: #### H EPXA, CDP ####[facility] [address] [place], [place] [address])[phone] Director: Gabe Freedman MD Abs.Imm.Granulocyte 0.08 k/uL Normal 0.00-0.30 [facility] Comment on above: Performed By: #### H EPXA, CDP ####[facility] [address] [place], [place] [address])[phone] Director: Gabe Freedman MD Abs.Neutrophil (Seg) 8.00 k/uL Normal 1.50-8.10 [facility] Comment on above: Performed By: #### H EPXA, CDP ####[facility] [address] [place] [address] Lab Director: Gabe Freedman MD Basophils/100 WBC (Bld) 0 % Normal 0-2 [facility] Comment on above: Performed By: #### H EPXA, CDP ####[facility] [address] [place] [address] Lab Director: Gabe Freedman MD Eosinophils (Bld) [#/Vol] 0.06 10*3/uL Normal 0.00-0.44 [facility] Comment on above: Performed By: #### H EPXA, CDP ####[facility] [address] [place] [address] [phone] Director: Gabe Freedman MD Eosinophils/100 WBC (Bld) 1 % Normal 1-4 [facility] Comment on above: Performed By: #### H EPXA, CDP ####[facility] [address] [place] [address])[phone] Director: Gabe Freedman MD Erythrocyte distribution width (RBC) [Ratio] 14.1 % Normal 11.8-14.4 [facility] Comment on above: Performed By: #### H EPXA, CDP ####[address] [address])[phone] Director: Gabe Freedman MD Hematocrit (Bld) [Volume fraction] 39.1 % Normal 36.3-47.1 [facility] Comment on above: Performed By: #### H EPXA, CDP ####[address] [address])[phone] Director: Gabe Freedman MD Hemoglobin (Bld) [Mass/Vol] 12.1 g/dL Normal 11.9-15.1 [facility] Comment on above: Performed By: #### H EPXA, CDP ####[facility] [address] [place] [address])[phone] Director: Gabe Freedman MD Immature granulocytes/100 WBC (Bld) 1 % High 0 [facility] Comment on above: Performed By: #### H EPXA, CDP ####[facility] [address] [place], [place] [phone])[phone] Director: Gabe Freedman MD Lymphocytes (Bld) [#/Vol] 1.56 10*3/uL Normal 1.10-3.70 [facility] Comment on above: Performed By: #### H EPXA, CDP ####[facility] [address] [place], [place] [address])[phone] Director: Gabe Freedman MD Lymphocytes/100 WBC (Bld) 14 % Low 24-43 [facility] Comment on above: Performed By: #### H EPXA, CDP ####[facility] [address] [place] [address])[phone] Director: Gabe Freedman MD MCH (RBC) [Entitic mass] 27.6 pg Normal 25.2-33.5 [facility] Comment on above: Performed By: #### H EPXA, CDP ####[address] [address])[phone] Director: Gabe Freedman MD MCHC (RBC) [Mass/Vol] 30.9 g/dL Normal 28.4-34.8 [facility] Comment on above: Performed By: #### H EPXA, CDP ####[address] [address])[phone] Director: Gabe Freedman MD MCV (RBC) [Entitic vol] 89.3 fL Normal 82.6-102.9 [facility] Comment on above: Performed By: #### H EPXA, CDP ####[facility] [address] [place] [address])[phone] Director: Gabe Freedman MD Monocytes (Bld) [#/Vol] 1.40 10*3/uL High 0.10-1.20 [facility] Comment on above: Performed By: #### H EPXA, CDP ####[facility] [address] [place], [place] [phone])[phone] Director: Gabe Freedman MD Monocytes/100 WBC (Bld) 13 % High 3-12 [facility] Comment on above: Performed By: #### H EPXA, CDP ####[facility] [address] [place], [place] [phone])[phone] Director: Gabe Freedman MD Neutrophil (Seg) 72 % High 36-[address] [facility] Comment on above: Performed By: #### H EPXA, CDP ####[facility] [address] [place] [address] [id number])[phone] Director: Gabe Freedman MD NRBC Automated 0.0 per 100 WBC Normal 0.0 [facility] Comment on above: Performed By: #### H EPXA, CDP ####[address] [address] Lab Director: Gabe Freedman MD Platelet mean volume (Bld) [Entitic vol] 11.5 fL Normal 8.1-13.5 [facility] Comment on above: Performed By: #### H EPXA, CDP ####[address] [address] Lab Director: Gabe Freedman MD Platelets (Bld) [#/Vol] 91 10*3/uL Low 138-453 [facility] Comment on above: Performed By: #### H EPXA, CDP ####[address] [address] Lab Director: Gabe Freedman MD RBC (Bld) [#/Vol] 4.38 10*6/uL Normal 3.95-5.11 [facility] Comment on above: Performed By: #### H EPXA, CDP ####[facility] [address] [place] [address] Lab Director: Gabe Freedman MD WBC (Bld) [#/Vol] 11.2 10*3/uL Normal 3.5-11.3 [facility] Comment on above: Performed By: #### H EPXA, CDP ####[facility] [address] [place] [address], [place] [phone] Lab Director: Gabe Freedman MD Glucose,Whole Bloodon 2023 Glucose [Mass/Vol] 280 mg/dL High 65-105 [facility] Glucose [Mass/Vol] 247 mg/dL High 65-105 [facility] Glucose [Mass/Vol] 282 mg/dL High 65-105 [facility] Glucose [Mass/Vol] 189 mg/dL High 65-105 [facility] Heparin Anti-Xaon 11-11-2023 Heparin Anti-Xa 0.52 IU/L Normal [facility] Comment on above: Result Comment: This test has not been validated or calibrated for therapies other than unfractionated heparin. Interpretation of the result in relation to other therapies must be done with caution and within clinical context. Performed By: #### H EPXA #### [facility] [address] [place] [address] [phone] Patient Service Representative: Gabe Freedman MD Heparin Anti-Xa 0.55 IU/L Normal [facility] Comment on above: Result Comment: This test has not been validated or calibrated for therapies other than unfractionated heparin. Interpretation of the result in relation to other therapies must be done with caution and within clinical context. Performed By: #### H EPXA ####[facility] [address] [place] [address] Lab Director: Gabe Freedman MD Heparin Anti-Xa 0.80 IU/L Normal [facility] Comment on above: Result Comment: This test has not been validated or calibrated for therapies other than unfractionated heparin. Interpretation of the result in relation to other therapies must be done with caution and within clinical context. Performed By: #### H EPXA, CDP ####[facility] [address] [place] [address] Lab Director: Gabe Freedman MD Magnesiumon 11-11-2023 Magnesium [Mass/Vol] 2.0 mg/dL 1.6 - 2 .4 mg/dL [facility] Magnesium [Mass/Vol] 2.0 mg/dL Normal 1.6-2.4 [facility] Comment on above: Performed By: #### M G, BMPX ####[facility] [address] [place] [address] lab Director: Gabe Freedman MD No Panel Informationon 11-10 [facility] POC Glucose Fingerstickon Glucose [Mass/Vol] 280 mg/dL High 65 - 105 mg/dL [facility] Interpretation and review of laboratory results Abnormal [facility] Glucose [Mass/Vol] 247 mg/dL High 65 - 105 mg/dL [facility] Interpretation and review of laboratory results Abnormal [facility] Glucose [Mass/Vol] 282 mg/dL High 65 - 105 mg/dL [facility] Interpretation and review of laboratory results Abnormal [facility] Glucose [Mass/Vol] 189 mg/dL High 65 - 105 mg/dL [facility] Interpretation and review of laboratory results Abnormal [facility] Prot. Electrophoresis, Uron 11-11-2023 Pathologist Review: ELECTRONICALLY BONI VARNER M.D. Normal [facility] Comment on above: Performed By: #### U PE ####[facility] [address] [place] [address] lab Director: Gabe Freedman MD Ur.-Prot.Elect-Inter Elevated protein concentration. Most serum proteins are detected in this urine. Normal [facility] Comment on above: Result Comment: Usua lly observed with markedly increased nonselective glomerular permaeabilty (severe glomerular disease) and/or contamination of urine with blood. A decrease in tubular function cannot be ruled out. Performed By: #### U PE ####[facility] [address] [place] [address] Lab Director: Gabe Freedman MD Protein Electrophoresis, Uri neon 11-11-2023 P E Interpretation, U Elevated protein concentration. Most serum proteins are detected in this urine. Usually observed with markedly increased nonselective glomerular permaeabilty (severe glomerular disease) and/or contamination of urine with blood. A decrease in tubular function cannot be ruled out. [facility] Pathologist ELECTRONICALLY OBNI VARNER M.D. [facility] Protein (U) [Mass/Vol] 474 mg/dL [facility] Specimen type Nom (Spec) .URINE [facility] Anti-Xa, Unfractionated Hepa rinon 11-10-2023 Anti-XA Unfrac Heparin 0.47 IU/L [facility] Basic Metab w/rfx MGon 11-09 Anion gap [Moles/Vol] 11 mmol/L Normal 9-16 [facility] Comment on above: Performed By: #### M G, HEPXA, BMPX, CDP ####[facility] [address] [place] [address] Lab Director: Gabe Freedman MD Calcium [Mass/Vol] 8.3 mg/dL Low 8.6-10.4 [facility] Comment on above: Performed By: #### M G, HEPXA, BMPX, CDP ####[facility] [address] [place] [address] Lab Director: Gabe Freedman MD Chloride [Moles/Vol] 109 mmol/L High 98-107 [facility] Comment on above: Performed By: #### M G, HEPXA, BMPX, CDP ####[facility] [address] [place] [address] Lab Director: Gabe Freedman MD CO2 [Moles/Vol] 19 mmol/L Low 20-31 [facility] Comment on above: Performed By: #### M G, HEPXA, BMPX, CDP ####[facility] [address] [place] [address] Lab Director: Gabe Freedman MD Creatinine [Mass/Vol] 3.5 mg/dL High 0.50-0.90 [facility] Comment on above: Performed By: #### M G, HEPXA, BMPX, CDP ####[facility] [address] [place] [address] Lab Director: Gabe Freedman MD GFR/1.73 sq M.predicted among non-blacks MDRD (S/P/Bld) [Vol rate/Area] 14 mL/min/{1.73_m2} Low >60 [facility] Comment on above: Result Comment: These [...] renal tubular secretion. Performed By: #### M G, HEPXA, BMPX, CDP ####[facility] [address] [place] [address] Lab Director: Gabe Freedman MD Glucose [Mass/Vol] 64 mg/dL Low 74-99 [facility] Comment on above: Performed By: #### M Galen, HEPXA, BMPX, CDP ####[facility] [address] [place] [address] Lab Director: Gabe Freedman MD Potassium [Moles/Vol] 3.7 mmol/L Normal 3.7-5.3 [facility] Comment on above: Performed By: #### M G, HEPXA, BMPX, CDP ####[facility] [address] [place] [address] Lab Director: Gabe Freedman MD Sodium [Moles/Vol] 139 mmol/L Normal 136-145 [facility] Comment on above: Performed By: #### M G, HEPXA, BMPX, CDP ####[facility] [address] [place] [address] Lab Director: Gabe Freedman MD Urea nitrogen [Mass/Vol] 28 mg/dL High 8-23 [facility] Comment on above: Performed By: #### M G, HEPXA, BMPX, CDP ####[facility] [address] [place] [address] lab Director: Gabe Freedman MD Basic Metabolic Panel w/ Ref pedro to MGon 11-10-2023 Anion gap [Moles/Vol] 11 mmol/L 9 - 16 mmol/L [facility] Calcium [Mass/Vol] 8.3 mg/dL Low 8.6 - 10. 4 mg/dL [facility] Chloride [Moles/Vol] 109 mmol/L High 98 - 10 7 mmol/L [facility] CO2 [Moles/Vol] 19 mmol/L Low 20 - 31 mmol/L [facility] Creatinine [Mass/Vol] 3.5 mg/dL High 0.50 - 0.90 mg/dL [facility] Est, Glom Filt Rate 14 Low - PINF [facility] Glucose [Mass/Vol] 64 mg/dL Low 74 - 99 mg/dL [facility] Interpretation and review of laboratory results Abnormal [facility] Potassium [Moles/Vol] 3.7 mmol/L 3.7 - 5.3 mmol/L [facility] Sodium [Moles/Vol] 139 mmol/L 136 - 145 mmol/L [facility] Urea nitrogen [Mass/Vol] 28 mg/dL High 8 - 23 mg/dL [facility] CBC with Auto Differentialon 11-10-2023 Basophils (Bld) [#/Vol] 0.07 10*3/uL [facility] Basophils/100 WBC (Bld) 1 % 0 - 2 % [facility] Eosinophils (Bld) [#/Vol] 0.20 10*3/uL [facility] Eosinophils/100 WBC (Bld) 2 % 1 - 4 % [facility] Erythrocyte distribution width (RBC) [Ratio] 14.1 % 11.8 - 14.4 % [facility] Hematocrit (Bld) [Volume fraction] 44.9 % 36.3 - 47.1 % [facility] Hemoglobin (Bld) [Mass/Vol] 14.2 g/dL 11.9 - 15.1 g/dL [facility] Immature granulocytes (Bld) [#/Vol] 0.07 10*3/uL [facility] Immature granulocytes/100 WBC (Bld) 1 % High 0 [facility] Interpretation and review of laboratory results Abnormal [facility] Lymphocytes/100 WBC (Bld) 20 % Low 24 - 43 % [facility] Lymphocytes/100 WBC (Bld) 1.98 % [facility] MCH (RBC) [Entitic mass] 27.7 pg 25.2 - 33.5 pg [facility] MCHC (RBC) [Mass/Vol] 31.6 g/dL 28.4 - 34.8 g/dL [facility] MCV (RBC) [Entitic vol] 87.5 fL 82.6 - 102.9 fL [facility] Monocytes/100 WBC (Bld) 13 % High 3 - 12 % [facility] Monocytes/100 WBC (Bld) 1.25 % High [facility] Neutrophils/100 WBC (Bld) 64 % 36 - 65 % [facility] Nucleated RBC/100 WBC (Bld) [Ratio] 0.0 % 0.0 per 100 WBC [facility] Platelet, Fluorescence 98 Low [facility] Platelets (Bld) [#/Vol] See Reflexed IPF Result [facility] Platelets reticulated/100 platelets Auto (Bld) 4.2 % 1.1 - 10.3 % [facility] RBC (Bld) [#/Vol] 5.13 10*6/uL High 3.95 - 5.11 m/uL [facility] Segmented neutrophils/100 WBC (Bld) 6.25 % [facility] WBC other (Bld) [#/Vol] 9.8 [facility] CBC with Diffon 09-17-2024 Platelet, Fluoresc. 98 k/uL Low 138-453 [facility] Comment on above: Performed By: #### H EPXA, BMP, MG #### [facility] [employer] [address] [place] [address] Patient Service Representative: Gabe Freedman MD PLT, Immature Fract. 4.2 % Normal 1.1-10.3 [facility] Comment on above: Performed By: #### H EPXA, BMP, MG #### [facility] [employer] [address] [place] [address] Patient Service Representative: Gabe Freedman MD Abs. Basophil 0.07 k/uL Normal 0.00-0.20 [facility] Comment on above: Performed By: #### H EPXA, BMP, MG #### [facility] [employer] [address] [place] [address] Patient Service Representative: Gabe Freedman MD Abs.Imm.Granulocyte 0.07 k/uL Normal 0.00-0.30 [facility] Comment on above: Performed By: #### H EPXA, BMP, MG #### [facility] [employer] [address] [place] [address] Patient Service Representative: Gabe Freedman MD Abs.Neutrophil (Seg) 6.25 k/uL Normal 1.50-8.10 [facility] Comment on above: Performed By: #### H EPXA, BMP, MG #### [facility] [employer] [address] [place] [address] Patient Service Representative: Gabe Freedman MD Basophils/100 WBC (Bld) 1 % Normal 0-2 [facility] Comment on above: Performed By: #### H EPXA, BMP, MG #### [facility] [employer] [address] [place] [address] Patient Service Representative: Gabe Freedman MD Eosinophils (Bld) [#/Vol] 0.20 10*3/uL Normal 0.00-0.44 [facility] Comment on above: Performed By: #### H EPXA, BMP, MG #### [facility] [employer] [address] [place] [address] Patient Service Representative: Gabe Freedman MD Eosinophils/100 WBC (Bld) 2 % Normal 1-4 [facility] Comment on above: Performed By: #### H EPXA, BMP, MG #### [facility] [employer] [address] [place] [address] Patient Service Representative: Gabe Freedman MD Erythrocyte distribution width (RBC) [Ratio] 14.1 % Normal 11.8-14.4 [facility] Comment on above: Performed By: #### H EPXA, BMP, MG #### [facility] [employer] [address] [place] [address] Patient Service Representative: Gabe Freedman MD Hematocrit (Bld) [Volume fraction] 44.9 % Normal 36.3-47.1 [facility] Comment on above: Performed By: #### H EPXA, BMP, MG #### [facility] [employer] [address] [place] [address] Patient Service Representative: Gabe Freedman MD Hemoglobin (Bld) [Mass/Vol] 14.2 g/dL Normal 11.9-15.1 [facility] Comment on above: Performed By: #### H EPXA, BMP, MG #### [facility] [address] [place] [address] Patient Service Representative: Gabe Freedman MD Immature granulocytes/100 WBC (Bld) 1 % High 0 [facility] Comment on above: Performed By: #### H EPXA, BMP, MG #### [facility] [employer] [address] [place] [address] Patient Service Representative: Gabe Freedman MD Lymphocytes (Bld) [#/Vol] 1.98 10*3/uL Normal 1.10-3.70 [facility] Comment on above: Performed By: #### H EPXA, BMP, MG #### [facility] [employer] [address] [place] [address] Patient Service Representative: Gabe Freedman MD Lymphocytes/100 WBC (Bld) 20 % Low 24-43 [facility] Comment on above: Performed By: #### H EPXA, BMP, MG #### [facility] [address] [place] [address] Patient Service Representative: Gabe Freedman MD MCH (RBC) [Entitic mass] 27.7 pg Normal 25.2-33.5 [facility] Comment on above: Performed By: #### H EPXA, BMP, MG #### [facility] [address] [place] [address] Patient Service Representative: Gabe Freedman MD MCHC (RBC) [Mass/Vol] 31.6 g/dL Normal 28.4-34.8 [facility] Comment on above: Performed By: #### H EPXA, BMP, MG #### [facility] [address] [place] [address] Patient Service Representative: Gabe Freedman MD MCV (RBC) [Entitic vol] 87.5 fL Normal 82.6-102.9 [facility] Comment on above: Performed By: #### H EPXA, BMP, MG #### [place] [address] Patient Service Representative: Gabe Freedman MD Monocytes (Bld) [#/Vol] 1.25 10*3/uL High 0.10-1.20 [facility] Comment on above: Performed By: #### H EPXA, BMP, MG #### [facility] [employer] [address] [place] [address] Patient Service Representative: Gbae Freedman MD Monocytes/100 WBC (Bld) 13 % High 3-12 [facility] Comment on above: Performed By: #### H EPXA, BMP, MG #### [employer] [address] [place] [address] Patient Service Representative: Gabe Freedman MD Neutrophil (Seg) 64 % Normal 36-[address] [facility] Comment on above: Performed By: #### H EPXA, BMP, MG #### [facility] [place] [address] Patient Service Representative: Gabe Freedman MD NRBC Automated 0.0 per 100 WBC Normal 0.0 [facility] Comment on above: Performed By: #### H EPXA, BMP, MG #### [facility] [address] [place] [address] Patient Service Representative: Gabe Freedman MD Platelet Count See Reflexed IPF Result Normal 138-453 [facility] Comment on above: Performed By: #### H EPXA, BMP, MG #### [facility] [address] [place] [address] Patient Service Representative: Gabe Freedman MD RBC (Bld) [#/Vol] 5.13 10*6/uL High 3.95-5.11 [facility] Comment on above: Performed By: #### H EPXA, BMP, MG #### [facility] [address] [place] [address] Patient Service Representative: Gabe Freedman MD WBC (Bld) [#/Vol] 9.8 10*3/uL Normal 3.5-11.3 [facility] Comment on above: Performed By: #### H EPXA, BMP, MG #### [employer] [address] [place] [address] Patient Service Representative: Gabe Freedman MD [facility] Body surface area Derived from formula 1.89 m2 [facility] Electrophoresis Protein, Ser umon 11-10-2023 Albumin % 54 % 45 - 65 % [facility] Albumin [Mass/Vol] 3.6 g/dL 3.2 - 5.2 g/dL [facility] Alpha 1 globulin Elph [Mass/Vol] 0.5 g/dL High 0.1 - 0.4 g/dL [facility] Alpha 1 globulin Elph [Mass/Vol] 7 % High 3 - 6 % [facility] Alpha 2 % 13 % 6 - 13 % [facility] Alpha 2 globulin Elph [Mass/Vol] 0.9 g/dL 0.5 - 0.9 g/dL [facility] Beta globulin Elph [Mass/Vol] 0.8 g/dL 0.5 - 1.1 g/dL [facility] Beta globulin Elph [Mass/Vol] 12 % 11 - 19 % [facility] Gamma Globulin % 14 % 9 - 20 % [facility] Gamma globulin Elph [Mass/Vol] 0.9 g/dL 0.5 - 1.5 g/dL [facility] Interpretation and review of laboratory results Abnormal [facility] Pathologist Cyto stain Nom (Cvx/Vag) [ID] ELECTRONICALLY SIGNED. ANNE LIN M.D. [facility] Protein [Mass/Vol] 6.7 g/dL 6.6 - 8.7 g/dL [facility] Protein Fractions [Interp] Normal electrophoretic pattern. [facility] Total Prot. Sum 6.7 g/dL 6.3 - 8.2 g/dL [facility] Total Prot. Sum,% 100 % 98 - 102 % [facility] Free Pastos + Lambdaon 2023 Free Pastos Lt Chains 60.5 mg/L High <20.8 [facility] Comment on above: Result Comment: Perf ormed using Diazyme reagent on [employer]. Results obtained with different assay methods cannot be used interchangeably. Performed By: #### F KLLC ####[facility] [address] [place] [address] lab Director: Gabe Freedman MD Free Pastos/Lambda Rat 1.06 Normal 0.22-1.74 [facility] Comment on above: Performed By: #### F KLLC ####[facility] [address] [place], [place] [id number] Lab Director: Gabe Freedman MD Free Lambda Lt Chains 57.2 mg/L High 4.2-27.7 [facility] Comment on above: Result Comment: Perf ormed using Diazyme reagent on [employer]. Results obtained with different assay methods cannot be used interchangeably. Performed By: #### F KLLC ####[facility] Center[facility] SoftwareZ[address] [place] [address] Lab Director: Gabe Freedman MD Glucose,Whole Bloodon 2023 Glucose [Mass/Vol] 188 mg/dL High 65-105 [facility] Glucose [Mass/Vol] 154 mg/dL High 65-105 [facility] Glucose [Mass/Vol] 118 mg/dL High 65-105 [facility] Glucose [Mass/Vol] 92 mg/dL Normal 65-105 [facility] Glucose [Mass/Vol] 96 mg/dL Normal 65-105 [facility] Glucose [Mass/Vol] 49 mg/dL Low 65-105 [facility] Comment on above: Result Comment: Gunnar griffin Noted Glucose [Mass/Vol] 117 mg/dL High 65-105 [facility] Heparin Anti-Xaon 11-10-2023 Heparin Anti-Xa 0.47 IU/L Normal [facility] Comment on above: Result Comment: This test has not been validated or calibrated for therapies other than unfractionated heparin. Interpretation of the result in relation to other therapies must be done with caution and within clinical context. Performed By: #### M G, HEPXA, BMPX, CDP ####[facility] [address] [place], [place] [id number] Lab Director: Gabe Freedman MD Pastos/Lambda Quantitative Fr ee Light Chains, Serumon 11-10-2023 Free Pastos/Lambda Ratio 1.06 0.22 - 1.74 [facility] Immunoglobulin light chains.kappa.free (S) [Mass/Vol] 60.5 mg/L High NINF - 20.8 mg/L [facility] Immunoglobulin light chains.lambda.free [Mass/Vol] 57.2 mg/L High 4.2 - 27.7 mg/L [facility] Interpretation and review of laboratory results Abnormal [facility] MRSA DNA Probe, Nasalon 10-24 MRSA, DNA, Nasal Negative NEGATIVE [facility] Specimen Description .NASAL SWAB [facility] MRSA, DNA, Nasalon MRSA, DNA, Nasal Negative Normal NEG [facility] Comment on above: Result Comment: NEGA TIVE: MRSA DNA not detected by nucleic acid amplification. Results should be used as an adjunct to nosocomial control efforts to identify patients needing enhanced precautions. The test is not intended to identify patients with staphylococcal infections. Results should not be used to guide or monitor treatment for MRSA infections. Performed By: #### M RSANO ####[employer] [address] [place] [id number] lab Director: Gabe Freedman MD Magnesiumon 11-10-2023 Magnesium [Mass/Vol] 1.9 mg/dL 1.6 - 2 .4 mg/dL [facility] Magnesium [Mass/Vol] 1.9 mg/dL Normal 1.6-2.4 [facility] Comment on above: Performed By: #### M G, HEPXA, BMPX, CDP ####[employer] [place], [place] [phone] Lab Director: Gabe Freedman MD No Panel Informationon 11-09 [facility] POC Glucose Fingerstickon Glucose [Mass/Vol] 188 mg/dL High 65 - 105 mg/dL [facility] Interpretation and review of laboratory results Abnormal [facility] Glucose [Mass/Vol] 154 mg/dL High 65 - 105 mg/dL [facility] Interpretation and review of laboratory results Abnormal [facility] Glucose [Mass/Vol] 118 mg/dL High 65 - 105 mg/dL [facility] Interpretation and review of laboratory results Abnormal [facility] Glucose [Mass/Vol] 92 mg/dL 65 - 105 mg/dL [facility] Glucose [Mass/Vol] 96 mg/dL 65 - 105 mg/dL [facility] Glucose [Mass/Vol] 49 mg/dL Low 65 - 105 mg/dL [facility] Interpretation and review of laboratory results Abnormal [facility] Glucose [Mass/Vol] 117 mg/dL High 65 - 105 mg/dL [facility] Interpretation and review of laboratory results Abnormal [facility] Prot. Electroph, Blon 2023 Pathologist Review: ELECTRONICALLY BONI LIN M.D. Normal [facility] Comment on above: Performed By: #### P E ####[facility] [address] [place] [address] Lab Director: Gabe Freedman MD Albumin [Mass/Vol] 3.6 g/dL Normal 3.2-5.2 [facility] Comment on above: Performed By: #### P E ####[facility] [address] [place] [address] lab Director: Gabe Freedman MD Albumin, % 54 % Normal 45-65 [facility] Comment on above: Performed By: #### P E ####[facility] [address] [place] [address] lab Director: Gabe Freedman MD Mtpkd-5-euezvbvrh 0.5 g/dL High 0.1-0.4 [facility] Comment on above: Performed By: #### P E ####[facility] [address] [place] [address] lab Director: Gabe Freedman MD Uuuet-2-rmjscmxeo,% 7 % High 3-6 [facility] Comment on above: Performed By: #### P E ####[facility] [address] [place], [place] [phone] Director: Gabe Freedman MD Zfket-5-egoohsrfo 0.9 g/dL Normal 0.5-0.9 [facility] Comment on above: Performed By: #### P E ####[facility] [address] [place], [place] [phone] Director: Gabe Freedman MD Btpgj-7-jdoswrtzp,% 13 % Normal 6-13 [facility] Comment on above: Performed By: #### P E ####[facility] [place] [address] [phone] Director: Gabe Freedman MD Beta-globulins 0.8 g/dL Normal 0.5-1.1 [facility] Comment on above: Performed By: #### P E ####[facility] [place], [place] [phone] Director: Gabe Freedman MD Beta-globulins,% 12 % Normal 11-[address] [facility] Comment on above: Performed By: #### P E ####[facility] [place], [place] [phone] Director: Gabe Freedman MD Gamma-globulins 0.9 g/dL Normal 0.5-1.5 [facility] Comment on above: Performed By: #### P E ####[facility] [address] [place], [place] [phone] Director: Gabe Freedman MD Gamma-globulins,% 14 % Normal 9-20 [facility] Comment on above: Performed By: #### P E ####[facility] [place], [place] [phone] Director: Gabe Freedman MD Prot. Elect-Interp Normal electrophoret ic pattern. Normal [facility] Comment on above: Performed By: #### P E ####[facility] [address] [place] [id number] Lab Director: Gabe Freedman MD Total Prot. Sum 6.7 g/dL Normal 6.3-8.2 [facility] Comment on above: Performed By: #### P E ####[facility] [address]qffaosd[address] [place] [address] Lab Director: Gabe Freedman MD Total Prot. Sum,% 100 % Normal 98-102 [facility] Comment on above: Performed By: #### P E ####[facility] On[address]w3227 [place] [address] lab Director: Gabe Freedman MD Protein [Mass/Vol] 6.7 g/dL Normal 6.6-8.7 [facility] Comment on above: Performed By: #### P E ####[facility] [address] [place] [address] Lab Director: Gabe Freedman MD Vascular duplex lower extrem ity venous bilateralon 11-10-2023 Body surface area Derived from formula 1.89 m2 [facility] [employer] [facility] CV CPACS [facility] [employer] [facility] Vascular duplex mesenteric a rteryon 11-10-2023 Ao prox PSV 134.0 cm/s [facility] [employer] [facility] Med[employer]s Liaison Body surface area Derived from formula 1.89 m2 [facility] [employer] [facility] Celiac EDV 18.7 cm/s [facility] [employer] [facility] Celiac PSV 90.6 cm/s [facility] [employer] [facility] Common Hepatic EDV 28.6 cm/s [facility] Common Hepatic PSV 152.0 cm/s [facility] [employer] [facility] Dist SMA EDV 0.0 cm/s [facility] [employer] [facility] Dist SMA PSV 40.1 cm/s [facility] [employer] [facility] JC EDV 11.9 cm/s [facility] [employer] [facility] CJ PSV 82.1 cm/s [facility] Mid SMA EDV 0.0 cm/s [facility] Mid SMA PSV 44.2 cm/s [facility] Origin SMA EDV 0.0 cm/s [facility] Origin SMA PSV 87.4 cm/s [facility] Prox SMA EDV 9.0 cm/s [facility] Prox SMA PSV 73.6 cm/s [facility] Splenic EDV 11.0 cm/s [facility] Splenic PSV 75.0 cm/s [facility] Suprarenal Ao PSV 134.0 cm/s [facility] CV CPACS [facility] 29on 11-09-2023 29 Addended by: NATHAN MARTE on: 11/09/2023 08:36 AM Modules accepted: Orders Normal [facility] APTTon 11-09-2023 aPTT Coag (Bld) [Time] 110.6 s Critically high [facility] Interpretation and review of laboratory results Abnormal [facility] aPTT Coag (Bld) [Time] 110.6 s Critically high 23.0-36.5 [facility] Comment on above: Result Comment: IV Heparin Therapy Range: 66.0-92.0 sec Performed By: #### H EPXA #### [facility] [place] [address] Patient Service Representative: Gabe Freedman MD Anti-Xa, Unfractionated Hepa rin 11-09-2023 Anti-XA Unfrac Heparin 0.47 IU/L [facility] Anti-XA Unfrac Heparin 0.69 IU/L [facility] Anti-XA Unfrac Heparin 0.70 IU/L [facility] Arterial Bld Gas,POCon 11-08 HCO3 (Bld) [Moles/Vol] 21.0 mmol/L Normal 21.0-28.0 [facility] Negative Base Excess (calc) 1.7 mmol/L Normal 0.0-2.0 [facility] Oxygen saturation in Blood 97.1 % Normal 94.0-98.0 [facility] pCO2, Arterial 29.6 mm Hg Low 35.0-48.0 [facility] pH, Arterial 7.458 High 7.350-7.45 0 [facility] pO2, Arterial 84.8 mm Hg Normal 83.0-108.0 [facility] Arterial Blood Gas, POCon HCO3 (Bld) [Moles/Vol] 21.0 mmol/L 21.0 - 28.0 mmol/L [facility] Interpretation and review of laboratory results Abnormal [facility] Negative Base Excess, Art 1.7 mmol/L 0.0 - 2.0 mmol/L [facility] Oxygen saturation in Blood 97.1 % 94.0 - 98.0 % [facility] POC pCO2 29.6 Low [facility] POC pH 7.458 High 7.350 - 7.450 [facility] POC PO2 84.8 [facility] Basic Metab w/rfx MGon 11-08 Anion gap [Moles/Vol] 14 mmol/L Normal -16 [facility] Comment on above: Performed By: #### F T4, BMPX ####[facility] CenterPlutus SoftwareRuadhjoxlzrq7364 [place] [address] Lab Director: Gabe Freedman MD Calcium [Mass/Vol] 8.7 mg/dL Normal 8.6-10.4 [facility] Comment on above: Performed By: #### F T4, BMPX ####[employer] T[address] [place], [place] 1923408 Lab Director: Gabe Freedman MD Chloride [Moles/Vol] 109 mmol/L High 98-107 [facility] Comment on above: Performed By: #### F T4, BMPX ####[employer] [address] [place], [place] [id number] Lab Director: Gabe Freedman MD CO2 [Moles/Vol] 16 mmol/L Low 20-31 [facility] Comment on above: Performed By: #### F T4, BMPX ####[facility] [address] [place] [address] Lab Director: Gabe Freedman MD Creatinine [Mass/Vol] 3.1 mg/dL High 0.50-0.90 [facility] Comment on above: Performed By: #### F T4, BMPX ####[facility] [address] [place], [place] [phone] Director: Gabe Freedman MD GFR/1.73 sq M.predicted among non-blacks MDRD (S/P/Bld) [Vol rate/Area] 16 mL/min/{1.73_m2} Low >60 [facility] Comment on above: Result Comment: These [...] affects renal tubular secretion. Performed By: #### F T4, BMPX ####[facility] [address] [place], [place] [phone] Director: Gabe Freedman MD Glucose [Mass/Vol] 89 mg/dL Normal 74-99 [facility] Comment on above: Performed By: #### F T4, BMPX ####[facility] [address] [place], [place] [phone] Director: Gabe Freedman MD Potassium [Moles/Vol] 4.2 mmol/L Normal 3.7-5.3 [facility] Comment on above: Result Comment: SPEC IMEN SLIGHTLY HEMOLYZED, RESULTS MAY BE ADVERSELY AFFECTED. Performed By: #### F T4, BMPX ####[facility] [address]ugw[address] [place], [place] [phone] lab Director: Gabe Freedman MD Sodium [Moles/Vol] 139 mmol/L Normal 136-145 [facility] Comment on above: Performed By: #### F T4, BMPX ####[facility] [address] [place], [place] [id number] lab Director: Gabe Freedman MD Urea nitrogen [Mass/Vol] 32 mg/dL High 8-23 [facility] Comment on above: Performed By: #### F T4, BMPX ####[facility] [address]ov[address]90[address] [place] [address] lab Director: Gabe Freedman MD Basic Metabolic Panel w/ Ref pedro to MGon 11-09-2023 Anion gap [Moles/Vol] 14 mmol/L 9 - 16 mmol/L [facility] Calcium [Mass/Vol] 8.7 mg/dL 8.6 - 10. 4 mg/dL [facility] Chloride [Moles/Vol] 109 mmol/L High 98 - 10 7 mmol/L [facility] CO2 [Moles/Vol] 16 mmol/L Low 20 - 31 mmol/L [facility] Creatinine [Mass/Vol] 3.1 mg/dL High 0.50 - 0.90 mg/dL [facility] Est, Glom Filt Rate 16 Low - [facility] Glucose [Mass/Vol] 89 mg/dL 74 - 99 mg/dL [facility] Interpretation and review of laboratory results Abnormal [facility] Potassium [Moles/Vol] 4.2 mmol/L 3.7 - 5.3 mmol/L [facility] Sodium [Moles/Vol] 139 mmol/L 136 - 145 mmol/L [facility] Urea nitrogen [Mass/Vol] 32 mg/dL High 8 - 23 mg/dL [facility] Blood Gas, Venouson 11-09-19 24 Carboxyhemoglobin (Bld) [Mass fraction] 0.6 % 0 - 5 % [facility] HCO3 (Bld) [Moles/Vol] 18.1 mmol/L Low 24 - 30 mmol/L [facility] Interpretation and review of laboratory results Abnormal [facility] Negative Base Excess, Josesito 4.1 mmol/L High 0.0 - 2.0 mmol/L [facility] Oxygen saturation in Blood 97.2 % High 60.0 - 85.0 % [facility] Oxygen/Inspired gas Respiratory system --on ventilator INFORMATION NOT PROVIDED [facility] pCO2, Josesito 27.4 Low [facility] pH, Josesito 7.435 High 7.320 - 7.420 [facility] PO2, Josesito 88.0 High [facility] CBC with Auto Differentialon 11-09-2023 Basophils (Bld) [#/Vol] 0.09 10*3/uL [facility] Basophils/100 WBC (Bld) 1 % 0 - 2 % [facility] Eosinophils (Bld) [#/Vol] 0.17 10*3/uL [facility] Eosinophils/100 WBC (Bld) 2 % 1 - 4 % [facility] Erythrocyte distribution width (RBC) [Ratio] 14.2 % 11.8 - 14.4 % [facility] Hematocrit (Bld) [Volume fraction] 46.8 % 36.3 - 47.1 % [facility] Hemoglobin (Bld) [Mass/Vol] 14.9 g/dL 11.9 - 15.1 g/dL [facility] Immature granulocytes (Bld) [#/Vol] 0.06 10*3/uL [facility] Immature granulocytes/100 WBC (Bld) 1 % High 0 [facility] Interpretation and review of laboratory results Abnormal [facility] Lymphocytes/100 WBC (Bld) 19 % Low 24 - 43 % [facility] Lymphocytes/100 WBC (Bld) 1.94 % [facility] MCH (RBC) [Entitic mass] 27.7 pg 25.2 - 33.5 pg [facility] MCHC (RBC) [Mass/Vol] 31.8 g/dL 28.4 - 34.8 g/dL [facility] MCV (RBC) [Entitic vol] 87.2 fL 82.6 - 102.9 fL [facility] Monocytes/100 WBC (Bld) 15 % High 3 - 12 % [facility] Monocytes/100 WBC (Bld) 1.50 % High [facility] Neutrophils/100 WBC (Bld) 63 % 36 - 65 % [facility] Nucleated RBC/100 WBC (Bld) [Ratio] 0.0 % 0.0 per 100 WBC [facility] Platelet, Fluorescence 103 Low [facility] Platelets (Bld) [#/Vol] See Reflexed IPF Result [facility] Platelets reticulated/100 platelets Auto (Bld) 4.3 % 1.1 - 10.3 % [facility] RBC (Bld) [#/Vol] 5.37 10*6/uL High 3.95 - 5.11 m/uL [facility] Segmented neutrophils/100 WBC (Bld) 6.46 % [facility] WBC other (Bld) [#/Vol] 10.2 [facility] CBC with Diffon 11-09-2023 Abs. Basophil 0.09 k/uL Normal 0.00-0.20 [facility] Comment on above: Performed By: #### HENRIK Luong TSH, CDP ####[employer] [address] [place] [address] Lab Director: Gabe Freedman MD Abs.Imm.Granulocyte 0.06 k/uL Normal 0.00-0.30 [facility] Comment on above: Performed By: #### HENRIK Luong TSH, CDP ####[facility] [address] [place] [address] Lab Director: Gabe Freedman MD Abs.Neutrophil (Seg) 6.46 k/uL Normal 1.50-8.10 [facility] Comment on above: Performed By: #### HENRIK Luong TSH, CDP ####[employer] [address] [place] [address] Lab Director: Gabe Freedman MD Basophils/100 WBC (Bld) 1 % Normal 0-2 [facility] Comment on above: Performed By: #### M G, TROPI, TSH, CDP ####[facility] [address] [place] [address] Lab Director: Gabe Freedman MD Eosinophils (Bld) [#/Vol] 0.17 10*3/uL Normal 0.00-0.44 [facility] Comment on above: Performed By: #### M G, TROPI, TSH, CDP ####[facility] [address]cf[address]my[address] [place] [address] Lab Director: Gabe Freedman MD Eosinophils/100 WBC (Bld) 2 % Normal 1-4 [facility] Comment on above: Performed By: #### M G, TROPI, TSH, CDP ####[facility] [address]ng[address]uwtqg5579 [place] [address] Lab Director: Gabe Freedman MD Erythrocyte distribution width (RBC) [Ratio] 14.2 % Normal 11.8-14.4 [facility] Comment on above: Performed By: #### M G, TROPI, TSH, CDP ####[facility] [address] [place] [address] Lab Director: Gabe Freedman MD Hematocrit (Bld) [Volume fraction] 46.8 % Normal 36.3-47.1 [facility] Comment on above: Performed By: #### M G, TROPI, TSH, CDP ####[facility] [address]ux[address] [place], [place] [phone] Director: Gabe Freedman MD Hemoglobin (Bld) [Mass/Vol] 14.9 g/dL Normal 11.9-15.1 [facility] Comment on above: Performed By: #### M G, TROPI, TSH, CDP ####[facility] R[address]fo[address] [place], [place] [phone] Director: Gabe Freedman MD Immature granulocytes/100 WBC (Bld) 1 % High 0 [facility] Comment on above: Performed By: #### M G, TROPI, TSH, CDP ####[facility] [address] [place], [place] [phone] Director: Gabe Freedman MD Lymphocytes (Bld) [#/Vol] 1.94 10*3/uL Normal 1.10-3.70 [facility] Comment on above: Performed By: #### M G, TROPI, TSH, CDP ####[facility] [address]wick[address] [place], [place] [phone] Director: Gabe Freedman MD Lymphocytes/100 WBC (Bld) 19 % Low 24-43 [facility] Comment on above: Performed By: #### M G, TROPI, TSH, CDP ####[facility] [address] [place], [place] [phone] Director: Gabe Freedman MD MCH (RBC) [Entitic mass] 27.7 pg Normal 25.2-33.5 [facility] Comment on above: Performed By: #### M G, TROPI, TSH, CDP ####[facility] [address]xv4[address] [place], [place] [phone] Director: Gabe Freedman MD MCHC (RBC) [Mass/Vol] 31.8 g/dL Normal 28.4-34.8 [facility] Comment on above: Performed By: #### M G, TROPI, TSH, CDP ####[facility] [address] [place], [place] [phone] Director: Gabe Freedman MD MCV (RBC) [Entitic vol] 87.2 fL Normal 82.6-102.9 [facility] Comment on above: Performed By: #### M G, TROPI, TSH, CDP ####[facility] [address] [place] [address] Lab Director: Gabe Freedman MD Monocytes (Bld) [#/Vol] 1.50 10*3/uL High 0.10-1.20 [facility] Comment on above: Performed By: #### M G, TROPI, TSH, CDP ####[facility] [address]am[address] [place] [address] Lab Director: Gabe Freedman MD Monocytes/100 WBC (Bld) 15 % High 3-12 [facility] Comment on above: Performed By: #### M G, TROPI, TSH, CDP ####[facility] [address] [place] [address] Lab Director: Gabe Freedman MD Neutrophil (Seg) 63 % Normal 36-[address] [facility] Comment on above: Performed By: #### Rian Aaron, TROPI, TSH, CDP ####[facility] [address] [place] [address] Lab Director: Gabe Freedman MD NRBC Automated 0.0 per 100 WBC Normal 0.0 [facility] Comment on above: Performed By: #### M Galen, TROPI, TSH, CDP ####[facility] [address] [place] [address] Lab Director: Gabe Freedman MD Platelet Count See Reflexed IPF Result Normal 138-453 [facility] Comment on above: Performed By: #### M Galen, TROPI, TSH, CDP ####[facility] [address] [place] [address] Lab Director: Gabe Freedman MD Platelet, Fluoresc. 103 k/uL Low 138-453 [facility] Comment on above: Performed By: #### M G, TROPI, TSH, CDP ####[facility] [address] [place] [address] Lab Director: Gabe Freedman MD PLT, Immature Fract. 4.3 % Normal 1.1-10.3 [facility] Comment on above: Performed By: #### M HENRIK Aaron TSH, CDP ####[facility] [address] [place] [address] Lab Director: Gabe Freedman MD RBC (Bld) [#/Vol] 5.37 10*6/uL High 3.95-5.11 [facility] Comment on above: Performed By: #### M Galen, HENRIK TSH, CDP ####[facility] [address] [place], [place] [phone] Director: Gabe Freedman MD WBC (Bld) [#/Vol] 10.2 10*3/uL Normal 3.5-11.3 [facility] Comment on above: Performed By: #### M HENRIK Aaron TSH, CDP ####[facility] [address]vhvxvwl5[address] [place], [place] [phone] Director: Gabe Freedman MD CT CHEST WO [...] Shannon Barron MD 11/09/23 Final result Normal [facility] CT Chest WO contraston 11-08 MHPN RIS CONSOLIDATED MHPN RIS CONSOLIDATED [facility] CT Chest WO contrastOrdered By: Shannon Barron on 11-09-2023 [facility] [employer] Work Phone: Cardiac echo study Procedure on 11-09-2023 Ao Root Index 1.18 cm/m2 [facility] [employer]ison Aortic Root 2.2 cm [facility] [employer] Aorta 3.5 cm [facility] [employer] Ascending Aorta Index 1.88 cm/m2 [facility] [employer] AV Area by Peak Velocity 1.4 cm2 [facility] AV Area by VTI 2.3 cm2 [facility] [employer] AV Mean Gradient 1 mmHg [facility] [place] [employer] [facility] AV Mean Velocity 0.5 m/s [facility] [employer] [facility] AV Peak Gradient 3 mmHg [facility] [employer] [facility] AV Peak Velocity 0.9 m/s [facility] [employer] [facility] AV Velocity Ratio 0.56 [facility] SEC [place] [employer] [facility] AV VTI 11.8 cm [facility] SECConnoshoer HEALTH JOSE/BSA Peak Velocity 0.8 cm2/m2 [facility] [employer] JOSE/BSA VTI 1.2 cm2/m2 [facility] [employer] Body surface area Derived from formula 1.89 m2 [facility] [employer] [facility] E/E' Lateral 7.00 [facility] [employer] E/E' Ratio (Averaged) 7.88 [facility] [employer] E/E' Septal 8.75 [facility] [employer] EF BP 45 % Abnormal 55 - 100 % [facility] EF Physician 50 % [facility] Est. RA Pressure 8 mmHg [facility] SEC[facility] [employer] Fractional Shortening 2D 39 % 28 - 44 % [facility] Interpretation and review of laboratory results Abnormal [facility] IVSd 1.7 cm Abnormal 0.6 - 0.9 cm [facility] [employer] LA Area 4C 11.4 cm2 [facility] [employer] LA Diameter 2.8 cm [facility] [employer] LA Major [place] 4.8 cm [facility] [employer] LA Size Index 1.51 cm/m2 [facility] [employer] LA Volume Index MOD A4C 10 ml/m2 Abnormal 16 - 34 ml/m2 [facility] LA Volume MOD A4C 19 mL Abnormal 22 - [address] [facility] [employer] LA/AO Root Ratio 1.27 [facility] SEC[facility] [employer] [facility] LV E' Lateral Velocity 5 cm/s [facility] LV E' Septal Velocity 4 cm/s [facility] LV Mass 2D 171.2 g Abnormal 67 - 162 g [facility] [employer] LV Mass 2D Index 92.0 g/m2 43 - 95 g/m2 [facility] LV RWT Ratio 1.14 [facility] [employer] LVIDd 2.8 cm Abnormal 3.9 - 5.3 cm [facility] LVIDd Index 1.51 cm/m2 [facility] LVIDs 1.7 cm [facility] LVIDs Index 0.91 cm/m2 [facility] LVOT Area 2.8 cm2 [facility] LVOT Diameter 1.9 cm [facility] LVOT Mean Gradient 0 mmHg [facility] LVOT Peak Gradient 1 mmHg [facility] LVOT Peak Velocity 0.5 m/s [facility] LVOT Stroke Volume Index 14.3 mL/m2 [facility] LVOT SV 26.6 ml [facility] LVOT VTI 9.4 cm [facility] [employer] Liaison LVOT:AV VTI Index 0.80 [facility] [employer]iaison LVPWd 1.6 cm Abnormal 0.6 - 0.9 cm [facility] [employer] MV A Velocity 0.57 m/s [facility] [employer] MV E Velocity 0.35 m/s [facility] [employer] MV E Wave Deceleration Time 206.0 ms [facility] [employer] MV E/A 0.61 [facility] [employer]ison PV Max Velocity 0.8 m/s [facility] [employer] PV Peak Gradient 2 mmHg [facility] [employer]iaison RV Free Wall Peak S' 8 cm/s [facility] RVIDd 4.3 cm [facility] [employer] RVSP 59 mmHg [facility] [employer] TAPSE 1.1 cm Abnormal 1.7 cm [facility] [employer] Liaison TR Max Velocity 3.58 m/s [facility] [employer] Liaison TR Peak Gradient 51 mmHg [facility] [employer] [facility] Radiology Study observation (narrative) [facility] [employer] EKG 12 LeadOrdered By: Luis A Burnham on 11-09-2023 Atrial Rate 78 BPM [facility] [employer] HEALTH Work Phone: P [place] 88 degrees [facility] [employer] Work Phone: P-R Interval 136 ms [facility] [employer] HEALTH Work Phone: Q-T Interval 410 ms [facility] [employer] Work Phone: QRS Duration 82 ms [facility] [employer] Work Phone: QTc Calculation (Bazett) 467 ms [facility] [employer] Work Phone: R [place] 155 degrees [facility] [employer] Work Phone: T [place] 22 degrees [facility] [employer] Work Phone: Ventricular Rate 78 BPM [facility] [employer] Work Phone: EKG 12 Leadon 11-09-2023 [facility] STV MUSE [facility] [employer] Ejection Fraction Percentage Ordered By: Manuela Sandoval on 11-09-2023 Left ventricular Ejection fraction 45 % [facility] [employer] Glucose,Whole Bloodon 2023 Glucose [Mass/Vol] 114 mg/dL High 65-105 [facility] Glucose [Mass/Vol] 77 mg/dL Normal 65-105 [facility] Glucose [Mass/Vol] 86 mg/dL Normal 65-105 [facility] Glucose [Mass/Vol] 152 mg/dL High 65-105 [facility] Glucose [Mass/Vol] 110 mg/dL High 65-105 [facility] Glucose [Mass/Vol] 68 mg/dL Normal 65-105 [facility] Glucose [Mass/Vol] 74 mg/dL Normal 65-105 [facility] Glucose [Mass/Vol] 155 mg/dL High 65-105 [facility] Glucose [Mass/Vol] 54 mg/dL Low 65-105 [facility] Comment on above: Result Comment: Gunnar griffin Noted Heparin Anti-Xaon 11-09-2023 Heparin Anti-Xa 0.47 IU/L Normal [facility] Comment on above: Result Comment: This test has not been validated or calibrated for therapies other than unfractionated heparin. Interpretation of the result in relation to other therapies must be done with caution and within clinical context. Performed By: #### H EPXA, BMP, MG #### [employer] [address] [place] [id number] Patient Service Representative: Gabe Freedman MD Heparin Anti-Xa 0.69 IU/L Normal [facility] Comment on above: Result Comment: This test has not been validated or calibrated for therapies other than unfractionated heparin. Interpretation of the result in relation to other therapies must be done with caution and within clinical context. Performed By: #### H EPXA #### [facility] [address] [place] [address] [id number] Patient Service Representative: Gabe Freedman MD Heparin Anti-Xa 0.70 IU/L Normal [facility] Comment on above: Result Comment: This test has not been validated or calibrated for therapies other than unfractionated heparin. Interpretation of the result in relation to other therapies must be done with caution and within clinical context. Performed By: #### H EPXA #### [facility] [address] [place] [address] [phone] Patient Service Representative: Gabe Freedman MD LEGIONELLA ANTIGEN, URINEon 11-09-2023 L. pneumophila 1 Ag IA.rapid Ql (U) Negative NEGATIVE [place] [facility] Lactic Acidon 11-09-2023 Lactic Acid, Whole Blood 1.6 mmol/L 0.7 - 2.1 mmol/L [facility] Lactic Acid,Whole Bl 1.6 mmol/L Normal 0.7-2.1 [facility] Comment on above: Performed By: #### H EPXA #### [facility] [address] [place] [address] [phone] Patient Service Representative: Gabe Freedman MD Legionella Ag, Uron 11-09-19 Legionella Ag, Ur Negative Normal NEG [facility] Comment on above: Result Comment: L. p neumophila serogroup 1 antigen not detected. A negative result does not exclude infection with Leginella pnemophila serogroup 1 nor does it rule out other microbial-caused respiratory infections of disease caused by other serogroups of Legionella pneumophila. Performed By: #### L EGU ####[facility] [address] [place] [address] [phone] lab Director: Gabe Freedman MD MRSA, DNA, Nasalon Specimen Description .NASAL SWAB Normal [facility] Comment on above: Performed By: #### M RSANO ####[facility] [address] [place] [address] lab Director: Gabe Freedman MD Magnesiumon 11-09-2023 Magnesium [Mass/Vol] 2.0 mg/dL 1.6 - 2 .4 mg/dL [facility] Magnesium [Mass/Vol] 2.0 mg/dL Normal 1.6-2.4 [facility] Comment on above: Performed By: #### M G, TROPI, TSH, CDP ####[facility] [address] [place], [place] [phone] lab Director: Gabe Freedman MD No Panel Informationon 11-08 [employer] [facility] Interpretation and review of laboratory results Abnormal [facility] [employer] [facility] [employer] No Panel InformationOrdered By: Manuela Sandoval on 11-09-2023 [employer] [facility] POC Glucose Fingerstickon Glucose [Mass/Vol] 114 mg/dL High 65 - 105 mg/dL [facility] Interpretation and review of laboratory results Abnormal [facility] [employer] [facility] Glucose [Mass/Vol] 77 mg/dL 65 - 105 mg/dL [facility] [employer] [facility] Glucose [Mass/Vol] 86 mg/dL 65 - 105 mg/dL [facility] Glucose [Mass/Vol] 152 mg/dL High 65 - 105 mg/dL [facility] Interpretation and review of laboratory results Abnormal [facility] [employer] [facility] [employer] [facility] Glucose [Mass/Vol] 110 mg/dL High 65 - 105 mg/dL [facility] Interpretation and review of laboratory results Abnormal [facility] [employer] [facility] [employer] [facility] Glucose [Mass/Vol] 68 mg/dL 65 - 105 mg/dL [facility] Glucose [Mass/Vol] 74 mg/dL 65 - 105 mg/dL [facility] Interpretation and review of laboratory results Abnormal [facility] Glucose [Mass/Vol] 54 mg/dL Low 65 - 105 mg/dL [facility] Interpretation and review of laboratory results Abnormal [facility] PREVIOUS SPECIMENon 11-09-19 24 [facility] PTon 11-09-2023 INR Coag (PPP) [Relative time] 1.1 {INR} Normal [facility] Comment on above: Result Comment: Therapeutic Range: Moderate Anticoagulant Intensity: INR = 2.0-3.0 High Anticoagulant Intensity: INR = 2.5-3.5 Performed By: #### H EPXA #### [employer] [address] [place] [address] Patient Service Representative: Gabe Freedman MD PT Coag (PPP) [Time] 14.2 s Normal 11.7-14.9 [facility] Comment on above: Performed By: #### H EPXA #### [employer] [facility] [address] [place], [place] [phone] Patient Service Representative: Gabe Freedman MD Portable XR Chest AP single viewon 11-09-2023 PN RIS CONSOLIDATED PN RIS CONSOLIDATED [facility] Radiology Study observation (narrative) [facility] Portable XR Chest AP single viewOrdered By: Rob Deleon on 11-09-2023 [facility] Work Phone: Prot. Electrophoresis, Uron 11-09-2023 Total Protein Conc. 474 mg/dL Normal [facility] Comment on above: Result Comment: No n ormal range established. Performed By: #### U PE ####[address] [place] [address] Lab Director: Gabe Freedman MD Type of Specimen .URINE Normal [facility] Comment on above: Performed By: #### U PE ####[employer] [place] [phone] Lab Director: Gabe Freedman MD Protime-INRon 11-09-2023 INR Coag (PPP) [Relative time] 1.1 {INR} [facility] PT Coag (PPP) [Time] 14.2 s [facility] Resp Viral Panelon 4 Adenovirus Not detected Normal [facility] Comment on above: Performed By: #### H EPXA, BMP, MG #### [facility] [address] [place] [address] 47799 Patient Service Representative: MD Abhinav Franks.parapertussis Not detected Normal [facility] Comment on above: Performed By: #### H EPXA, BMP, MG #### [facility] [address] [place] [address] 28419 Patient Service Representative: Gabe Freedman MD Bordetella pertussis Not detected Normal [facility] Comment on above: Performed By: #### H EPXA, BMP, MG #### [facility] [address] [place] [address] 50421 Patient Service Representative: Gabe Freedman MD Chlamyd.pneumoniae Not detected Normal [facility] Comment on above: Performed By: #### H EPXA, BMP, MG #### [facility] [address] [place] [address] 02464 Patient Service Representative: Gabe Freedman MD Coronavirus 229E Not detected Normal [facility] Comment on above: Performed By: #### H EPXA, BMP, MG #### [facility] [address] [place] [address] 24758 Patient Service Representative: Gabe Freedman MD Coronavirus HKU1 Not detected Normal [facility] Comment on above: Performed By: #### H EPXA, BMP, MG #### [facility] [address] [place] [address] Patient Service Representative: Gabe Freedman MD Coronavirus NL63 Not detected Normal [facility] Comment on above: Performed By: #### H EPXA, BMP, MG #### [facility] [address] [place] [address] 09393 Patient Service Representative: Gabe Freedman MD Coronavirus OC43 Not detected Normal [facility] Comment on above: Performed By: #### H EPXA, BMP, MG #### [facility] [address] [place] [address]120 Patient Service Representative: Gabe Freedman MD Human Metapneumo Not detected [facility] Comment on above: Performed By: #### H EPXA, BMP, MG #### [facility] [employer] [address] [place] [address] Patient Service Representative: Gabe Freedman MD Influenza A Not detected Normal [facility] Comment on above: Performed By: #### H EPXA, BMP, MG #### [facility] [employer] [address] [place] [address] 56569 Patient Service Representative: Gabe Freedman MD Influenza B Not detected [facility] Comment on above: Performed By: #### H EPXA, BMP, MG #### [facility] [employer] [address] [place] [address]993 Patient Service Representative: Gabe Freedman MD Mycoplas.pneumoniae Not detected Normal [facility] Comment on above: Result Comment: Perf ormed by multiplexed nucleic acid assay. Performed By: #### H EPXA, BMP, MG #### [facility] [address] [place] [address]51 Patient Service Representative: Gabe Freedman MD Parainfluenza 1 Not detected Normal [facility] Comment on above: Performed By: #### H EPXA, BMP, MG #### [facility] [address] [place] [address] Patient Service Representative: Gabe Freedman MD Parainfluenza 2 Not detected Normal [facility] Comment on above: Performed By: #### H EPXA, BMP, MG #### [address] [address] Patient Service Representative: Gabe Freedman MD Parainfluenza 3 Not detected Normal [facility] Comment on above: Performed By: #### H EPXA, BMP, MG #### [address] [address] Patient Service Representative: Gabe Freedman MD Parainfluenza 4 Not detected [facility] Comment on above: Performed By: #### H EPXA, BMP, MG #### [address] [address] Patient Service Representative: Gabe Freedman MD Resp Syncytial Virus Not detected Normal [facility] Comment on above: Performed By: #### H EPXA, BMP, MG #### [address] [address] Patient Service Representative: Gabe Freedman MD Rhino/Enterovirus Not detected [facility] Comment on above: Performed By: #### H EPXA, BMP, MG #### [address] [address] Patient Service Representative: Gabe Freedman MD SARS-CoV-2 (COVID-19) RNA ZITA+probe Ql (Unsp spec) Not detected [facility] Comment on above: Performed By: #### H EPXA, BMP, MG #### [address] [address] Patient Service Representative: Gabe Freedman MD Source: .NASOPHARYNGEAL SWAB Normal [facility] Comment on above: Performed By: #### H EPXA, BMP, MG #### [facility] [address] [place] [address] Patient Service Representative: Gabe Freedman MD Respiratory Panel, Molecular , with COVID-19 (Restricted: peds pts or suitable admitted adults)on 11-09-2023 Adenovirus DNA ZITA+non-probe Ql (Nph) Not detected Not Detected [facility] B. parapertussis [id number] DNA ZITA+non-probe Ql (Nph) Not detected Not Detected [facility] B. pertussis DNA ZITA+probe Ql (Unsp spec) Not detected Not Detected [facility] C. pneumoniae DNA ZITA+non-probe Ql (Nph) Not detected Not Detected [facility] FLUAV RNA ZITA+non-probe Ql (Nph) Not detected Not Detected [facility] FLUBV RNA ZITA+non-probe Ql (Nph) Not detected Not Detected [facility] HCoV 229E RNA ZITA+non-probe Ql (Nph) Not detected Not Detected [facility] HCoV HKU1 RNA ZITA+non-probe Ql (Nph) Not detected Not Detected [facility] HCoV NL63 RNA ZITA+non-probe Ql (Nph) Not detected Not Detected [facility] HCoV OC43 RNA ZITA+non-probe Ql (Nph) Not detected Not Detected [facility] hMPV RNA ZITA+non-probe Ql (Nph) Not detected Not Detected [facility] M. pneumoniae DNA ZITA+non-probe Ql (Nph) Not detected Not Detected [facility] Parainfluenza virus 1 RNA ZITA+non-probe Ql (Nph) Not detected Not Detected [facility] Parainfluenza virus 2 RNA ZITA+non-probe Ql (Nph) Not detected Not Detected [facility] Parainfluenza virus 3 RNA ZITA+non-probe Ql (Nph) Not detected Not Detected [facility] Parainfluenza virus 4 RNA ZITA+non-probe Ql (Nph) Not detected Not Detected [facility] Rhinovirus+Enterovir us RNA ZITA+non-probe Ql (Nph) Not detected Not Detected [facility] RSV RNA ZITA+non-probe Ql (Nph) Not detected Not Detected [facility] SARS-CoV-2 (COVID-19) RNA ZITA+non-probe Ql (Nph) Not detected Not Detected [facility] Specimen Description .NASOPHARYNGEAL SWAB [facility] Strep Pneumoniae Antigenon 0 11-09-2023 S. pneumoniae Ag Ql (Unsp spec) Negative [facility] Specimen source Nom (Unsp spec) .URINE [facility] Strep pneum Ag,CSF/Uron 10-24 Strep pneum Ag Negative Normal [facility] Comment on above: Result Comment: Stre p pneumoniae antigen not detected Performed By: #### S PNAG ####[facility] [address] [place], [place] [id number] Lab Director: Gabe Freedman MD Strep pneu Ag Source .URINE Normal [facility] Comment on above: Performed By: #### S PNAG ####[facility] [address] [place], [place] [phone] lab Director: Gabe Freedman MD T4, Freeon 11-09-2023 Free T4 [Mass/Vol] 2.0 ng/dL High 0.92 - 1.68 ng/dL [facility] Interpretation and review of laboratory results Abnormal [facility] TSH without Reflexon 024 TSH Qn 0.03 m[IU]/L Low [facility] Thyroid Stim. Horm.on 2023 Thyroid Stim. Horm. 0.03 uIU/mL Low 0.27-4.20 [facility] Comment on above: Performed By: #### M G, TROPI, TSH, CDP ####[facility] [address] [place], [place] [id number] Lab Director: Gabe Freedman MD Thyroxine, Freeon 11-09-2023 Thyroxine, Free 2.0 ng/dL High 0.92-1.68 [facility] Comment on above: Performed By: #### F T4, BMPX ####[employer] [address] [place], [place] [id number] [facility] Director: Gabe Freedman MD Troponinon 11-09-2023 Troponin I.cardiac High sensitivity method [Mass/Vol] 184 ng/L Critically high 0 - 14 ng/L [facility] Troponin, High Sens 184 ng/L Critically high 0-14 [facility] Comment on above: Result Comment: High Sensitivity Troponin values cannot be compared with other Troponin methodologies. Previous Alert Value Reported Performed By: #### M G, TROPI, TSH, CDP ####[facility] [address] [place], [place] [phone] [facility] Director: Gabe Freedman MD Interpretation and review of laboratory results Abnormal [facility] Troponin I.cardiac High sensitivity method [Mass/Vol] 192 ng/L Critically high 0 - 14 ng/L [facility] Troponin, High Sens 192 ng/L Critically high 0-14 [facility] Comment on above: Result Comment: High Sensitivity Troponin values cannot be compared with other Troponin methodologies. Previous Alert Value Reported Performed By: #### T ROPI ####[facility] [address] [place] [address] [id number] lab Director: Gabe Freedman MD Vascular duplex lower extrem ity venous bilateralon 11-09-2023 Radiology Study observation (narrative) [facility] Vascular duplex mesenteric a rteryon 11-09-2023 Radiology Study observation (narrative) [facility] Venous Blood Gaseson 024 Body Temp. 37.0 Normal [facility] Comment on above: Performed By: #### H EPXA #### [facility] [employer] [address] [place] [address] [phone] Patient Service Representative: Gabe Freedman MD Carboxy Hgb 0.6 % Normal 0-5 [facility] Comment on above: Result Comment: Reference Range: Non-Smokers 0-2% Average Smoker 2-4% Heavy Smoker <10% Performed By: #### H EPXA #### [address] [address] Patient Service Representative: Gabe Freedman MD FIO2 INFORMATION NOT PROVIDED Normal [facility] Comment on above: Performed By: #### H EPXA #### [address] [address] Patient Service Representative: Gabe Freedman MD HCO3 (Bld) [Moles/Vol] 18.1 mmol/L Low 24-30 [facility] Comment on above: Performed By: #### H EPXA #### [address] [address] Patient Service Representative: Gabe Freedman MD Negative Base Excess 4.1 mmol/L High 0.0-2.0 [facility] Comment on above: Performed By: #### H EPXA #### [address] [address] Patient Service Representative: Gabe Freedman MD Oxygen saturation in Blood 97.2 % High 60.0-85.0 [facility] Comment on above: Performed By: #### H EPXA #### [address] [address] Patient Service Representative: Gabe Freedman MD pCO2 27.4 mm Hg Low 39-55 [facility] Comment on above: Performed By: #### H EPXA #### [address] [address] Patient Service Representative: Gabe Freedman MD pH (Bld) 7.435 [pH] High 7.320-7.42 0 [facility] Comment on above: Performed By: #### H EPXA #### [address] [address] Patient Service Representative: Gabe Freedman MD pO2 88.0 mm Hg High 30-50 [facility] Comment on above: Performed By: #### H EPXA #### [employer] [address] [place] [address] Patient Service Representative: Gabe Freedman MD XR CHEST PORTABLEon 11-09-19 [...] Rob Deleon MD 11/09/23 Final result Normal [facility] APTTon 11-08-2023 aPTT Coag (Bld) [Time] 52.7 s High [employer] aPTT Coag (Bld) [Time] 52.7 s High 23.0-36.5 [facility] Comment on above: Result Comment: IV Heparin Therapy Range: 66.0-92.0 sec Performed By: #### H EPXADANIELLE, MG #### [employer] [address] [place] [address] Patient Service Representative: Gabe Freedman MD Brain Natri. Peptideon 11-07 Natriuretic peptide B (Bld) [Mass/Vol] 90793 pg/mL High 0-300 [facility] Comment on above: Result Comment: An a ge-independent cutoff point of 300 pg/ml has a 98% negative predictive value excluding acute heart failure. Performed By: #### H EPXA BMP, MG #### [employer] [address] [place] [address] Patient Service Representative: Gabe Freedman MD Brain Natriuretic Peptideon 11-08-2023 Natriuretic peptide B (Bld) [Mass/Vol] 76731 pg/mL High 0 - 300 pg/mL [employer] CBC with Auto Differentialon 11-08-2023 Basophils (Bld) [#/Vol] 0.09 10*3/uL [employer] [facility] Basophils/100 WBC (Bld) 1 % 0 - 2 % [facility] Eosinophils (Bld) [#/Vol] 0.18 10*3/uL [facility] Eosinophils/100 WBC (Bld) 2 % 1 - 4 % [facility] Erythrocyte distribution width (RBC) [Ratio] 14.1 % 11.8 - 14.4 % [facility] Hematocrit (Bld) [Volume fraction] 54.1 % High 36.3 - 47.1 % [facility] Hemoglobin (Bld) [Mass/Vol] 17.3 g/dL High 11.9 - 15.1 g/dL [facility] Immature granulocytes (Bld) [#/Vol] 0.06 10*3/uL [facility] Immature granulocytes/100 WBC (Bld) 1 % High 0 [facility] Interpretation and review of laboratory results Abnormal [facility] Lymphocytes/100 WBC (Bld) 20 % Low 24 - 43 % [facility] Lymphocytes/100 WBC (Bld) 2.34 % [facility] MCH (RBC) [Entitic mass] 28.1 pg 25.2 - 33.5 pg [facility] MCHC (RBC) [Mass/Vol] 32.0 g/dL 28.4 - 34.8 g/dL [facility] MCV (RBC) [Entitic vol] 87.8 fL 82.6 - 102.[address] [facility] Monocytes/100 WBC (Bld) 12 % 3 - 12 % [facility] Monocytes/100 WBC (Bld) 1.46 % High [facility] Neutrophils/100 WBC (Bld) 65 % 36 - 65 % [facility] Nucleated RBC/100 WBC (Bld) [Ratio] 0.0 % 0.0 per 100 WBC [facility] Platelet, Fluorescence 112 Low [facility] Platelets (Bld) [#/Vol] See Reflexed IPF Result [facility] Platelets reticulated/100 platelets Auto (Bld) 3.1 % 1.1 - 10.3 % [facility] RBC (Bld) [#/Vol] 6.16 10*6/uL High 3.95 - 5.11 m/uL [facility] Segmented neutrophils/100 WBC (Bld) 7.70 % [facility] WBC other (Bld) [#/Vol] 11.8 High [facility] CBC with Diffon 11-08-2023 Abs. Basophil 0.09 k/uL Normal 0.00-0.20 [facility] Comment on above: Performed By: #### H EPXA, BMP, MG #### [employer] [address] [place] [address] Patient Service Representative: Gabe Freedman MD Abs.Imm.Granulocyte 0.06 k/uL Normal 0.00-0.30 [facility] Comment on above: Performed By: #### H EPXA, BMP, MG #### [facility] [address] [place] [address] Patient Service Representative: Gabe Freedman MD Abs.Neutrophil (Seg) 7.70 k/uL Normal 1.50-8.10 [facility] Comment on above: Performed By: #### H EPXA, BMP, MG #### [facility] [address] [place] [address] Patient Service Representative: Gabe Freedman MD Basophils/100 WBC (Bld) 1 % Normal 0-2 [facility] Comment on above: Performed By: #### H EPXA, BMP, MG #### [employer] [address] [place] [address] Patient Service Representative: Gabe Freedman MD Eosinophils (Bld) [#/Vol] 0.18 10*3/uL Normal 0.00-0.44 [facility] Comment on above: Performed By: #### H EPXA, BMP, MG #### [employer] [address] [place] [address] Patient Service Representative: Gabe Freedman MD Eosinophils/100 WBC (Bld) 2 % Normal 1-4 [facility] Comment on above: Performed By: #### H EPXA, BMP, MG #### [facility] [address] [place] [address] Patient Service Representative: Gabe Freedman MD Erythrocyte distribution width (RBC) [Ratio] 14.1 % Normal 11.8-14.4 [facility] Comment on above: Performed By: #### H EPXA, BMP, MG #### [facility] [address] [place] [address] Patient Service Representative: Gabe Freedman MD Hematocrit (Bld) [Volume fraction] 54.1 % High 36.3-47.1 [facility] Comment on above: Performed By: #### H EPXA, BMP, MG #### [facility] [address] [place] [address] Patient Service Representative: Gabe Freedman MD Hemoglobin (Bld) [Mass/Vol] 17.3 g/dL High 11.9-15.1 [facility] Comment on above: Performed By: #### H EPXA, BMP, MG #### [facility] [address] [place] [address] Patient Service Representative: Gabe Freedman MD Immature granulocytes/100 WBC (Bld) 1 % High 0 [facility] Comment on above: Performed By: #### H EPXA, BMP, MG #### [facility] [address] [place] [address] Patient Service Representative: Gabe Freedman MD Lymphocytes (Bld) [#/Vol] 2.34 10*3/uL Normal 1.10-3.70 [facility] Comment on above: Performed By: #### H EPXA, BMP, MG #### [facility] [address] [place] [address] Patient Service Representative: Gabe Freedman MD Lymphocytes/100 WBC (Bld) 20 % Low 24-43 [facility] Comment on above: Performed By: #### H EPXA, BMP, MG #### [facility] [employer] [address] [place] [address] Patient Service Representative: Gabe Freedman MD MCH (RBC) [Entitic mass] 28.1 pg Normal 25.2-33.5 [facility] Comment on above: Performed By: #### H EPXA, BMP, MG #### [facility] [employer] [address] [place] [address] Patient Service Representative: Gabe Freedman MD MCHC (RBC) [Mass/Vol] 32.0 g/dL Normal 28.4-34.8 [facility] Comment on above: Performed By: #### H EPXA, BMP, MG #### [address] [address] Patient Service Representative: Gabe Freedman MD MCV (RBC) [Entitic vol] 87.8 fL Normal 82.6-102.9 [facility] Comment on above: Performed By: #### H EPXA, BMP, MG #### [address] [address] Patient Service Representative: Gabe Freedman MD Monocytes (Bld) [#/Vol] 1.46 10*3/uL High 0.10-1.20 [facility] Comment on above: Performed By: #### H EPXA, BMP, MG #### [facility] [employer] [address] [place] [address] Patient Service Representative: Gabe Freedman MD Monocytes/100 WBC (Bld) 12 % Normal 3-12 [facility] Comment on above: Performed By: #### H EPXA, BMP, MG #### [facility] [employer] [address] [place] [address] Patient Service Representative: Gabe Freedman MD Neutrophil (Seg) 65 % Normal 36-[address] [facility] Comment on above: Performed By: #### H EPXA, BMP, MG #### [facility] [address] [place] [address] Patient Service Representative: Gabe Freedman MD NRBC Automated 0.0 per 100 WBC Normal 0.0 [facility] Comment on above: Performed By: #### H EPXA, BMP, MG #### [facility] [address] [place] [address] Patient Service Representative: Gabe Freedman MD Platelet Count See Reflexed IPF Result Normal 138-453 [facility] Comment on above: Performed By: #### H EPXA, BMP, MG #### [facility] [address] [place] [address] 26400 Patient Service Representative: Gabe Freedman MD Platelet, Fluoresc. 112 k/uL Low 138-453 [facility] Comment on above: Performed By: #### H EPXA, BMP, MG #### [facility] [employer] [address] [place] [address] 83532 Patient Service Representative: Gabe Freedman MD PLT, Immature Fract. 3.1 % Normal 1.1-10.3 [facility] Comment on above: Performed By: #### H EPXA, BMP, MG #### [facility] [employer] [address] [place] [address] 43861 Patient Service Representative: Gabe Freedman MD RBC (Bld) [#/Vol] 6.16 10*6/uL High 3.95-5.11 [facility] Comment on above: Performed By: #### H EPXA, BMP, MG #### [facility] [address] [place] [address] 20457 Patient Service Representative: Gabe Freedman MD WBC (Bld) [#/Vol] 11.8 10*3/uL High 3.5-11.3 [facility] Comment on above: Performed By: #### H EPXA, BMP, MG #### [facility] [address] [place] [address] 65107 Patient Service Representative: Gabe Freedman MD CT Chest WO contraston 11-07 Radiology Study observation (narrative) [facility] Comp Metabolic Profon 2023 Albumin [Mass/Vol] 3.7 g/dL Normal 3.5-5.2 [facility] Comment on above: Performed By: #### H EPXA, BMP, MG #### [employer] [address] [place] [address] 75599 Patient Service Representative: Gabe Freedman MD Albumin/Glob Ratio 1.0 Normal 1.0-2.5 [facility] Comment on above: Performed By: #### H EPXA, BMP, MG #### [employer] [address] [place] [address] 82993 Patient Service Representative: Gabe Freedman MD Alkaline Phos 86 U/L Normal 35-104 [facility] Comment on above: Performed By: #### H EPXA, BMP, MG #### [employer] [address] [place] [address] 49013 Patient Service Representative: Gabe Freedman MD ALT [Catalytic activity/Vol] 100 U/L High 10-35 [facility] Comment on above: Performed By: #### H EPXA, BMP, MG #### [employer] [address] [place] [address] 47857 Patient Service Representative: Gabe Freedman MD Anion gap [Moles/Vol] 15 mmol/L Normal 9-16 [facility] Comment on above: Performed By: #### H EPXA, BMP, MG #### [employer] [facility] [place] [address] Patient Service Representative: Gabe Freedman MD AST [Catalytic activity/Vol] 72 U/L High 10-35 [facility] Comment on above: Result Comment: SPEC IMEN SLIGHTLY HEMOLYZED, RESULTS MAY BE ADVERSELY AFFECTED. Performed By: #### H EPXA, BMP, MG #### [employer] [facility] [place] [address] Patient Service Representative: Gabe Freedman MD Bilirubin [Mass/Vol] 0.7 mg/dL Normal 0.00-1.20 [facility] Comment on above: Performed By: #### H EPXA, BMP, MG #### [facility] [address] [place] [address] 18734 Patient Service Representative: Gabe Freedman MD Calcium [Mass/Vol] 9.9 mg/dL Normal 8.6-10.4 [facility] Comment on above: Performed By: #### H EPXA, BMP, MG #### [facility] [address] [place] [address] 40112 Patient Service Representative: Gabe Freedman MD Chloride [Moles/Vol] 111 mmol/L High 98-107 [facility] Comment on above: Performed By: #### H EPXA, BMP, MG #### [facility] [address] [place] [address] 76019 Patient Service Representative: Gabe Freedman MD CO2 [Moles/Vol] 16 mmol/L Low 20-31 [facility] Comment on above: Performed By: #### H EPXA, BMP, MG #### [facility] [address] [place] [address] 85300 Patient Service Representative: Gabe Freedman MD Creatinine [Mass/Vol] 2.7 mg/dL High 0.50-0.90 [facility] Comment on above: Performed By: #### H EPXA, BMP, MG #### [facility] [address] [place] [address] 85462 Patient Service Representative: Gabe Freedman MD GFR/1.73 sq M.predicted among non-blacks MDRD (S/P/Bld) [Vol rate/Area] 20 mL/min/{1.73_m2} Low >60 [facility] Comment on above: Result Comment: These [...] affects renal tubular secretion. Performed By: #### H EPXA, BMP, MG #### [employer] [address] [place] [address] 88646 Patient Service Representative: Gabe Freedman MD Glucose [Mass/Vol] 105 mg/dL High 74-99 [facility] Comment on above: Performed By: #### H EPXA, BMP, MG #### [employer] [address] [place] [address] 71346 Patient Service Representative: Gabe Freedman MD Potassium [Moles/Vol] 4.0 mmol/L Normal 3.7-5.3 [facility] Comment on above: Result Comment: SPEC IMEN SLIGHTLY HEMOLYZED, RESULTS MAY BE ADVERSELY AFFECTED. Performed By: #### H EPXA, BMP, MG #### [employer] [address] [place] [address] 54317 Patient Service Representative: Gabe Freedman MD Protein [Mass/Vol] 6.7 g/dL Normal 6.6-8.7 [facility] Comment on above: Performed By: #### H EPXA, BMP, MG #### [employer] [address] [place] [address] 36584 Patient Service Representative: Gabe Freedman MD Sodium [Moles/Vol] 142 mmol/L Normal 136-145 [facility] Comment on above: Performed By: #### H EPXA, BMP, MG #### [employer] [address] [place] [address] 42633 Patient Service Representative: Gabe Freedman MD Urea nitrogen [Mass/Vol] 35 mg/dL High 8-23 [facility] Comment on above: Performed By: #### H EPXA, BMP, MG #### [facility] [address] [place] [address] Patient Service Representative: Gabe Freedman MD Comprehensive Metabolic Pane [facility] 11-08-2023 Albumin [Mass/Vol] 3.7 g/dL 3.5 - 5.2 g/dL [facility] Albumin/Globulin [Mass ratio] 1.0 {ratio} 1.0 - 2.5 [facility] ALP [Catalytic activity/Vol] 86 U/L 35 - 104 U/L [facility] ALT [Catalytic activity/Vol] 100 U/L High 10 - 35 U/L [facility] Anion gap [Moles/Vol] 15 mmol/L 9 - 16 mmol/L [facility] AST [Catalytic activity/Vol] 72 U/L High 10 - 35 U/L [facility] Bilirubin [Mass/Vol] 0.7 mg/dL 0.00 - 1.20 mg/dL [facility] Calcium [Mass/Vol] 9.9 mg/dL 8.6 - 10. 4 mg/dL [facility] Chloride [Moles/Vol] 111 mmol/L High 98 - 10 7 mmol/L [facility] CO2 [Moles/Vol] 16 mmol/L Low 20 - 31 mmol/L [facility] Creatinine [Mass/Vol] 2.7 mg/dL High 0.50 - 0.90 mg/dL [facility] Est, Glom Filt Rate 20 Low - [facility] Glucose [Mass/Vol] 105 mg/dL High 74 - 99 mg/dL [facility] Potassium [Moles/Vol] 4.0 mmol/L 3.7 - 5.3 mmol/L [facility] Protein [Mass/Vol] 6.7 g/dL 6.6 - 8.7 g/dL [facility] Sodium [Moles/Vol] 142 mmol/L 136 - 145 mmol/L [facility] Urea nitrogen [Mass/Vol] 35 mg/dL High 8 - 23 mg/dL [facility] D-Dimer Teston 11-08-2023 D-Dimer Test 13.32 ug/mL FEU High 0.00-0.57 [facility] Comment on above: Result Comment: When [...] patients with distal DVT. Performed By: #### H DANIELLE KEY, MG #### [employer] [address] [place] [address] Patient Service Representative: Gabe Freedman MD D-Dimer, Quantitativeon 10-24 Fibrin D-dimer FEU (PPP) [Mass/Vol] 13.32 High [facility] Glucose,Whole Bloodon 2023 Glucose [Mass/Vol] 116 mg/dL High 65-105 [facility] Glucose [Mass/Vol] 63 mg/dL Low 65-105 [facility] Lactic Acidon 11-08-2023 Interpretation and review of laboratory results Abnormal [facility] Lactic Acid, Whole Blood 2.9 mmol/L High 0.7 - 2.1 mmol/L [facility] Lactic Acid,Whole Bl 2.9 mmol/L High 0.7-2.1 [facility] Comment on above: Performed By: #### H EPXA, BMP, MG #### [facility] [address] [id number] Patient Service Representative: Gabe Freedman MD No Panel Informationon 11-07 Interpretation and review of laboratory results Abnormal [facility] Interpretation and review of laboratory results Abnormal [facility] POC Glucose Fingerstickon Glucose [Mass/Vol] 116 mg/dL High 65 - 105 mg/dL [facility] Interpretation and review of laboratory results Abnormal [facility] Glucose [Mass/Vol] 63 mg/dL Low 65 - 105 mg/dL [facility] Interpretation and review of laboratory results Abnormal [facility] Procalcitoninon 11-08-2023 Interpretation and review of laboratory results Abnormal [facility] Procalcitonin [Mass/Vol] 0.27 ng/mL High 0.00 - 0.09 ng/mL [facility] Procalcitonin 0.27 ng/mL High 0.00-0.09 [facility] Comment on above: Result Comment: Suspected [...] entered into the Change in Procalcitonin Calculator ([email or web address]) to determine the patient's Mortality Risk Prognosis In healthy neonates, plasma Procalcitonin (PCT) concentrations increase gradually after , reaching peak values at about 24 hours of age then decrease to normal values below 0.5 ng/mL by 48-72 hours of age. Performed By: #### H EPXA BMP, MG #### [employer] [address] [place], [place] [id number] Patient Service Representative: Gabe Freedman MD Troponinon 11-08-2023 Interpretation and review of laboratory results Abnormal [facility] Troponin I.cardiac High sensitivity method [Mass/Vol] 197 ng/L Critically high 0 - 14 ng/L [facility] Troponin, High Sens 197 ng/L Critically high 0-14 [facility] Comment on above: Result Comment: High Sensitivity Troponin values cannot be compared with other Troponin methodologies. Previous Alert Value Reported Performed By: #### T ROPI ####[employer] [place], [place] [id number] Lab Director: Gabe Freedman MD Troponin I.cardiac High sensitivity method [Mass/Vol] 192 ng/L Critically high 0 - 14 ng/L [facility] Troponin, High Sens 192 ng/L Critically high 0-14 [facility] Comment on above: Result Comment: High Sensitivity Troponin values cannot be compared with other Troponin methodologies. Performed By: #### H EPPRIYANKA BMP, MG #### [employer] [facility] [place], [place] [id number] Patient Service Representative: Gabe Freedman MD Refillon 11-07-2023 Refill Normal [facility] Follow-Upon 11-03-2023 Follow-Up Normal [facility] 30on 10-23-2023 30 Normal [facility] BASIC METABOLIC PANELon 09-25 Anion gap [Moles/Vol] 12 mmol/L Normal 7-20 [facility] Comment on above: Performed By: #### L [id number] ####[facility] (BEAKER)[address] [place] [address] Calcium [Mass/Vol] 8.5 mg/dL Low 8.6-10.3 [facility] Comment on above: Performed By: #### L [id number] ####[facility] ([facility]ER)[address] [place] [address] Chloride [Moles/Vol] 109 mmol/L High 98-107 [facility] Comment on above: Performed By: #### L [id number] ####[facility] ([facility])[address] [place] [address] CO2 [Moles/Vol] 22 mmol/L Normal 21-31 [facility] Comment on above: Performed By: #### L [id number] ####[facility] ([facility])[address] [place] [address] Creatinine [Mass/Vol] 2.40 mg/dL High 0.60-1.20 [facility] Comment on above: Performed By: #### L [id number] ####[facility] ([facility])[address] [place] [address] GLOMERULAR FILTRATION RATE ML/MIN/1.73 SQ M.PREDICTED 22.3 mL/min/1.73m*2 Low >60.0 [facility] Comment on above: Result Comment: [facility]???s estimated glomerular filtration rate (eGFR) will [...] group of individuals. Performed By: #### L [id number] ####[facility] ([facility])[address] [place] [address] Glucose [Mass/Vol] 116 mg/dL High 70-100 [facility] Comment on above: Performed By: #### L [id number] ####[facility] (BEAKER)[address] [place] [address] Potassium [Moles/Vol] 4.2 mmol/L Normal 3.5-5.1 [facility] Comment on above: Performed By: #### L [id number] ####[facility] ([facility]AKER)[address] [place] [address] Sodium [Moles/Vol] 139 mmol/L Normal 136-145 [facility] Comment on above: Performed By: #### L [id number] ####[facility] ([facility]ER)[address] [place] [address] Urea nitrogen [Mass/Vol] 41 mg/dL High 7-25 [facility] Comment on above: Performed By: #### L [id number] ####[facility] ([facility])[address] [place] [address] UREA NITROGEN/CREATININE (MASS RATIO) IN SER/PLAS 17.1 [facility] Comment on above: Performed By: #### L [id number] ####[facility] ([facility])[address] [place] [address] CONSULTon 10-23-2023 CONSULT Normal [facility] DSon 10-23-2023 DS Normal [facility] EVEROLIMUS, QUANTITATIVEon 0 10-23-2023 EVEROLIMUS BY HPLC-MS/MS 2.7 ng/mL [facility] Comment on above: Result Comment: Ther apeutic Range:Kidney transplant (in combination with Cyclosporine):3-8 ng/mLLiver transplant (in combination with Tacrolimus):3-8 ng/mLToxic value: Greater than 15 ng/mLEverolimus marketed as Zortress is FDA approved for prophylaxis oforgan rejection in adult patients receiving a kidney and livertransplant.Everolimus marketed as Afinitor is FDA approved for the treatmentof renal cell carcinoma and for the treatment of subependymalgiant cell astrocytoma (SEGA) associated with tuberous sclerosis(TS) in patients who are not candidates for curative surgicalresection. The suggested therapeutic range for treatment of SEGAis 5-15 ng/mL, which is based on a predose (trough) specimen.The optimal therapeutic range for a given patient may differ fromthis suggested range based on the indication for therapy,treatment phase (initiation or maintenance), use in combinationwith other drugs, time of specimen collection relative to priordose, type of transplanted organ, and/or the therapeutic approachof the transplant center.This test was developed and its performance characteristicsdetermined by [employer]. It has not been cleared orapproved by the [place] Food and Drug Administration. This test wasperformed in a CLIA certified laboratory and is intended forclinical purposes.Performed By: [employer] [place] [address] [id number] Director: Young Lopez MD, PhDCLIA Number: [id number] Performed By: #### L [id number] ####[facility] ([facility])[address] [place] [address] HISTOPLASMA ANTIBODIESon HISTOPLASMA AB, ID Not detected Normal Not Detected [facility] Comment on above: Result Comment: No H istoplasma antibodies were detected. This result does notexclude Histoplasma infection.Performed By: [employer] [place] [address] [id number] Director: Young Lopez MD, PhDCLIA Number: [id number] Performed By: #### L [id number] ####[facility] ([facility])[address] [place] [address] HISTOPLASMA MYCELIA CF <1:8 Normal <1:8 [facility] Comment on above: Result Comment: INTE RPRETIVE INFORMATION: Histoplasma Mycelia Antibodies by [employer] titer of 1:8 or greater is generally considered presumptiveevidence of histoplasmosis. A titer of 1:32 or greater or risingtiters indicate strong presumptive evidence of histoplasmosis.Cross reactions, usually at lower titers, may occur with otherfungal diseases. Performed By: #### L [id number] ####[facility] ([facility])[address] [place] [address] HISTOPLASMA YEAST CF <1:8 Normal <1:8 [facility] Comment on above: Result Comment: INTE RPRETIVE INFORMATION: Histoplasma Yeast Antibodies by [employer] titer of 1:8 or greater is generally considered presumptiveevidence of histoplasmosis. A titer of 1:32 or greater or risingtiters indicate strong presumptive evidence of histoplasmosis.Cross reactions, usually at lower titers, may occur with otherfungal diseases. Performed By: #### L [id number] ####[facility] ([facility])[address] [place] [address] LACTATE DEHYDROGENASEon 09-25 LACTATE DEHYDROGENASE (U/L) IN SER/PLAS BY LAC->PYR RXN 239 U/L Normal 140-271 [facility] Comment on above: Performed By: #### L [id number] ####[facility] ([facility])[address] [place] [address] MAGNESIUMon 10-23-2023 Magnesium [Mass/Vol] 1.8 mg/dL Low 1.9-2.7 [facility] Comment on above: Performed By: #### L [id number] ####[facility] ([facility])[address] [place] [address] NURSNOTEon 10-23-2023 NURSNOTE Patient educated on the need of 3 liters continuous home oxygen. No questions or concerns at this time. HOME O2 EVAL REVIEWED AND PATIENT REQUIRES OXYGEN DUE TO SPO2 84% ON ROOM AIR WITH AMBULATION. Normal [facility] PHOSPHORUSon 10-23-2023 Magnesium [Mass/Vol] 4.0 mg/dL Normal 2.5-5.0 [facility] Comment on above: Performed By: #### L [id number] ####[facility] ([facility])[address] [place] [address] POCT GLUCOSE METER UNSOLICIT ED RESULTSon 10-23-2023 Glucose [Mass/Vol] 225 mg/dL High 70-105 [facility] Comment on above: Order Comment: Waive d Testing in the ED is performed under the ED CLIA certificate #[id number]. Result Comment: [email or web address] Performed By: #### L [id number] ####[facility] ([facility])[address] [place] [address] Glucose [Mass/Vol] 114 mg/dL High 70-105 [facility] Comment on above: Order Comment: Waive d Testing in the ED is performed under the ED CLIA certificate #[id number]. Result Comment: [email or web address] Performed By: #### L [id number] ####[facility] ([facility]ER)[address] [place] [address] TACROLIMUS LEVELon Tacrolimus (Bld) [Mass/Vol] 5.5 ng/mL Normal 5.0-20.0 [facility] Comment on above: Result Comment: The [employer] Tacrolimus assay is a delayed one-step immunoassay for the quantitative determination of tacrolimus in human whole blood using the chemiluminescent microparticle immunoassay (CMIA) technology with flexible assay protocols, referred to as Chemiflex. Performed By: #### L [id number] ####[facility] (BEAKER)[address] [place] [address] 30on 10-22-2023 30 Normal [facility] 30 Normal [facility] 30 Normal [facility] BASIC METABOLIC PANELon 09-24 Anion gap [Moles/Vol] 13 mmol/L Normal 7-20 [facility] Comment on above: Performed By: #### L [id number] ####[facility] ([facility]ER)[address] [place] [address] Calcium [Mass/Vol] 9.1 mg/dL Normal 8.6-10.3 [facility] Comment on above: Performed By: #### L [id number] ####[facility] (BEAKER)[address] [place] [address] Chloride [Moles/Vol] 109 mmol/L High 98-107 [facility] Comment on above: Performed By: #### L [id number] ####[facility] ([facility])[address] [place] [address] CO2 [Moles/Vol] 20 mmol/L Low 21-31 [facility] Comment on above: Performed By: #### L [id number] ####[facility] ([facility])[address] [place] [address] Creatinine [Mass/Vol] 2.28 mg/dL High 0.60-1.20 [facility] Comment on above: Performed By: #### L [id number] ####[facility] ([facility])[address] [place] [address] GLOMERULAR FILTRATION RATE ML/MIN/1.73 SQ M.PREDICTED 23.7 mL/min/1.73m*2 Low >60.0 [facility] Comment on above: Result Comment: [facility]???s estimated glomerular filtration rate (eGFR) will [...] group of individuals. Performed By: #### L [id number] ####[facility] ([facility])[address] [place] [address] Glucose [Mass/Vol] 135 mg/dL High 70-100 [facility] Comment on above: Performed By: #### L [id number] ####[facility] ([facility])[address] [place] [address] Potassium [Moles/Vol] 3.9 mmol/L Normal 3.5-5.1 [facility] Comment on above: Performed By: #### L [id number] ####[facility] ([facility])[address] [facility] [address] Sodium [Moles/Vol] 138 mmol/L Normal 136-145 [facility] Comment on above: Performed By: #### L [id number] ####[facility] ([facility])[address] [facility] [address] Urea nitrogen [Mass/Vol] 41 mg/dL High 7-25 [facility] Comment on above: Performed By: #### L [id number] ####[facility] ([facility])[address] [facility] [address] UREA NITROGEN/CREATININE (MASS RATIO) IN SER/PLAS 18.0 Normal [facility] Comment on above: Performed By: #### L [id number] ####[facility] ([facility])[address] [place] [address] CBCon 10-22-2023 Erythrocyte distribution width (RBC) [Ratio] 13.5 % Normal 11.5-15.0 [facility] Comment on above: Performed By: #### L [id number] ####[facility] ([facility])[address] [place] [address] ERYTHROCYTE MEAN CORPUSCULAR HEMOGLOBIN CONCENTRATION (G/DL) BY AUTOMATED 32.7 g/dL Normal 32.0-35.0 [facility] Comment on above: Performed By: #### L [id number] ####[facility] ([facility])[address] [place] [address] Hematocrit (Bld) [Volume fraction] 44.7 % Normal 36.0-48.0 [facility] Comment on above: Performed By: #### L [id number] ####[facility] ([facility])[address] [place] [address] Hemoglobin (Bld) [Mass/Vol] 14.6 g/dL Normal 12.0-15.0 [facility] Comment on above: Performed By: #### L [id number] ####[facility] ([facility])[address] [place] [address] MCH (RBC) [Entitic mass] 28.1 pg Normal 27.0-33.0 [facility] Comment on above: Performed By: #### L [id number] ####[facility] ([facility])[address] [place] [address] MCV (RBC) [Entitic vol] 86.0 fL Normal 82.0-98.0 [facility] Comment on above: Performed By: #### L [id number] ####[facility] ([facility])[address] [place] [address] PLATELETS (10*3/UL) IN BLOOD AUTOMATED COUNT 159 10*3/uL Normal 150-400 [facility] Comment on above: Performed By: #### L [id number] ####[facility] (BEAKER)[address] [place] [address] RBC (Bld) [#/Vol] 5.20 10*6/uL High 3.80-5.00 [facility] Comment on above: Performed By: #### L [id number] ####[facility] ([facility])[address] [place] [address] WBC (Bld) [#/Vol] 10.33 10*3/uL Normal 4.00-10.60 [facility] Comment on above: Performed By: #### L [id number] ####[facility] ([facility])[address] [place] [address] EVEROLIMUS, QUANTITATIVEon 0 10-22-2023 EVEROLIMUS BY HPLC-MS/MS 5.0 ng/mL Normal [facility] Comment on above: Result Comment: Ther apeutic Range:Kidney transplant (in combination with Cyclosporine):3-8 ng/mLLiver transplant (in combination with Tacrolimus):3-8 ng/mLToxic value: Greater than 15 ng/mLEverolimus marketed as Zortress is FDA approved for prophylaxis oforgan rejection in adult patients receiving a kidney and livertransplant.Everolimus marketed as Afinitor is FDA approved for the treatmentof renal cell carcinoma and for the treatment of subependymalgiant cell astrocytoma (SEGA) associated with tuberous sclerosis(TS) in patients who are not candidates for curative surgicalresection. The suggested therapeutic range for treatment of SEGAis 5-15 ng/mL, which is based on a predose (trough) specimen.The optimal therapeutic range for a given patient may differ fromthis suggested range based on the indication for therapy,treatment phase (initiation or maintenance), use in combinationwith other drugs, time of specimen collection relative to priordose, type of transplanted organ, and/or the therapeutic approachof the transplant center.This test was developed and its performance characteristicsdetermined by [facility]. It has not been cleared orapproved by the US Food and Drug Administration. This test wasperformed in a CLIA certified laboratory and is intended forclinical purposes.Performed By: [facility] [place], [place] [id number] Director: Young Lopez MD, PhDCLIA Number: [id number] Performed By: #### L [id number] ####[facility] ([facility])[address] [place] [address] POCT GLUCOSE METER UNSOLICIT ED RESULTSon 10-22-2023 Glucose [Mass/Vol] 203 mg/dL High 70-105 [facility] Comment on above: Order Comment: Waive d Testing in the ED is performed under the ED CLIA certificate #[id number]. Result Comment: bgar row Performed By: #### L [id number] ####[facility] ([facility])[address] [place] [address] Glucose [Mass/Vol] 203 mg/dL High 70-105 [facility] Comment on above: Order Comment: Waive d Testing in the ED is performed under the ED CLIA certificate #[id number]. Result Comment: [email or web address] [email or web address] Performed By: #### L [id number] ####[facility] ([facility])[address] [place] [address] Glucose [Mass/Vol] 248 mg/dL High 70-105 [facility] Comment on above: Order Comment: Waive d Testing in the ED is performed under the ED CLIA certificate #[id number]. Result Comment: [email or web address] [email or web address] Performed By: #### L [id number] ####[facility] ([facility])[address] [place] [address] Glucose [Mass/Vol] 205 mg/dL High 70-105 [facility] Comment on above: Order Comment: Waive d Testing in the ED is performed under the ED CLIA certificate #[id number]. Result Comment: [email or web address] [email or web address] Performed By: #### L [id number] ####[facility] ([facility])[address] [place] [address] Glucose [Mass/Vol] 100 mg/dL Normal 70-105 [facility] Comment on above: Order Comment: Waive d Testing in the ED is performed under the ED CLIA certificate #[id number]. Result Comment: [email or web address] [email or web address] Performed By: #### L [id number] ####[facility] ([facility])[address] [place] [address] TACROLIMUS LEVELon Tacrolimus (Bld) [Mass/Vol] 6.7 ng/mL Normal 5.0-20.0 [facility] Comment on above: Result Comment: The [employer]ABLE [employer] Tacrolimus assay is a delayed one-step immunoassay for the quantitative determination of tacrolimus in human whole blood using the chemiluminescent microparticle immunoassay (CMIA) technology with flexible assay protocols, referred to as Chemiflex. Performed By: #### L [id number] ####[facility] ([facility])[address] [place] [address] 30on 10-21-2023 30 Normal [facility] 30 Normal [facility] 30 Normal [facility] BASIC METABOLIC PANELon 09-24 Anion gap [Moles/Vol] 12 mmol/L Normal 7-20 [facility] Comment on above: Performed By: #### L [id number] ####[facility] ([facility])[address] [place] [address] Calcium [Mass/Vol] 9.1 mg/dL Normal 8.6-10.3 [facility] Comment on above: Performed By: #### L [id number] ####[facility] ([facility])[address] [place] [address] Chloride [Moles/Vol] 111 mmol/L High 98-107 [facility] Comment on above: Performed By: #### L [id number] ####[facility] ([facility])[address] [place] [address] CO2 [Moles/Vol] 22 mmol/L Normal 21-31 [facility] Comment on above: Performed By: #### L [id number] ####[facility] ([facility])[address] [place] [address] Creatinine [Mass/Vol] 2.59 mg/dL High 0.60-1.20 [facility] Comment on above: Performed By: #### L [id number] ####[facility] ([facility])[address] [place] [address] GLOMERULAR FILTRATION RATE ML/MIN/1.73 SQ M.PREDICTED 20.3 mL/min/1.73m*2 Low >60.0 [facility] Comment on above: Result Comment: [facility]???s estimated glomerular filtration rate (eGFR) will [...] group of individuals. Performed By: #### L [id number] ####[facility] ([facility])[address] [place] [address] Glucose [Mass/Vol] 76 mg/dL Normal 70-100 [facility] Comment on above: Performed By: #### L [id number] ####[facility] ([facility])[address] [place] [address] Potassium [Moles/Vol] 4.1 mmol/L Normal 3.5-5.1 [facility] Comment on above: Performed By: #### L [id number] ####[facility] ([facility])[address] [place] [address] Sodium [Moles/Vol] 141 mmol/L Normal 136-145 [facility] Comment on above: Performed By: #### L [id number] ####[facility] ([facility])[address] [place] [address] Urea nitrogen [Mass/Vol] 37 mg/dL High 7-25 [facility] Comment on above: Performed By: #### L [id number] ####[facility] ([facility])[address] [place] [address] UREA NITROGEN/CREATININE (MASS RATIO) IN SER/PLAS 14.3 Normal [facility] Comment on above: Performed By: #### L [id number] ####[facility] ([facility])[address] [place] [address] EVEROLIMUS, QUANTITATIVEon 0 10-21-2023 EVEROLIMUS BY HPLC-MS/MS 5.1 ng/mL Normal [facility] Comment on above: Result Comment: Ther apeutic Range:Kidney transplant (in combination with Cyclosporine):3-8 ng/mLLiver transplant (in combination with Tacrolimus):3-8 ng/mLToxic value: Greater than 15 ng/mLEverolimus marketed as Zortress is FDA approved for prophylaxis oforgan rejection in adult patients receiving a kidney and livertransplant.Everolimus marketed as Afinitor is FDA approved for the treatmentof renal cell carcinoma and for the treatment of subependymalgiant cell astrocytoma (SEGA) associated with tuberous sclerosis(TS) in patients who are not candidates for curative surgicalresection. The suggested therapeutic range for treatment of SEGAis 5-15 ng/mL, which is based on a predose (trough) specimen.The optimal therapeutic range for a given patient may differ fromthis suggested range based on the indication for therapy,treatment phase (initiation or maintenance), use in combinationwith other drugs, time of specimen collection relative to priordose, type of transplanted organ, and/or the therapeutic approachof the transplant center.This test was developed and its performance characteristicsdetermined by [facility]. It has not been cleared orapproved by the [place] Food and Drug Administration. This test wasperformed in a CLIA certified laboratory and is intended forclinical purposes.Performed By: [facility] [place], [place] [address]Tybfkfetzp Director: Young Lopez MD, PhDCLIA Number: [id number] Performed By: #### L [id number] ####[facility] ([facility])[address] [place] [address] Orders Onlyon 10-21-2023 Orders Only Normal [facility] POCT GLUCOSE METER UNSOLICIT ED RESULTSon 10-21-2023 Glucose [Mass/Vol] 222 mg/dL High 70-105 [facility] Comment on above: Order Comment: Waive d Testing in the ED is performed under the ED CLIA certificate #[id number]. Result Comment: [email or web address] [email or web address] Performed By: #### L [id number] ####[facility] ([facility])[address] [place] [address] Glucose [Mass/Vol] 231 mg/dL High 70-105 [facility] Comment on above: Order Comment: Waive d Testing in the ED is performed under the ED CLIA certificate #[id number]. Result Comment: [email or web address] [email or web address] Performed By: #### L [id number] ####[facility] ([facility])[address] [place] [address] Glucose [Mass/Vol] 195 mg/dL High 70-105 [facility] Comment on above: Order Comment: Waive d Testing in the ED is performed under the ED CLIA certificate #[id number]. Result Comment: eris [email or web address] Performed By: #### L [id number] ####[facility] ([facility])[address] [place] [address] Glucose [Mass/Vol] 195 mg/dL High 70-105 [facility] Comment on above: Order Comment: Waive d Testing in the ED is performed under the ED CLIA certificate #[id number]. Result Comment: kvng tra Performed By: #### L [id number] ####[facility] ([facility])[address] [place] [address] TACROLIMUS LEVELon 4 Tacrolimus (Bld) [Mass/Vol] 6.0 ng/mL Normal 5.0-20.0 [facility] Comment on above: Result Comment: The [employer]ABLE MANAGER Tacrolimus assay is a delayed one-step immunoassay for the quantitative determination of tacrolimus in human whole blood using the chemiluminescent microparticle immunoassay (CMIA) technology with flexible assay protocols, referred to as Chemiflex. Performed By: #### L [id number] ####[facility] ([facility])[address] [place] [address] 1,0-KXQX-B-GLUCANon 10-20-19 24 (1,3)-SVRZ-I-VQIRLR 70 pg/mL Normal [facility] Comment on above: Performed By: #### L [id number] ####[facility])[address] [place] [address] (1,3)-YAFH-D-WETZTJ INTERPRETATION Indeterminate Abnormal Negative [facility] Comment on above: Result Comment: INTE RPRETIVE INFORMATION: (1,3)-iiee-M-vtanji (Fungitell) Less than 31 pg/mL ................... Negative 31-59 pg/mL .......................... Negative 60-79 pg/mL .......................... Indeterminate Greater than or equal to 80 pg/mL .... PositiveThe Fungitell test is indicated for presumptive diagnosisof fungal infection and should be used in conjunction withother diagnostic procedures. This test does not detectcertain fungal species such as Cryptococcus, which producevery low levels of (1,3)-ffvs-L-rxwetq. This test will notdetect the zygomycetes, such as Absidia, Mucor, andRhizopus, which are not known to produce(1,3)-rygb-R-iduxtm. In addition, the yeast phase ofBlastomyces dermatitidis produces little(1,3)-cylh-W-iadsmq and may not be detected by the assay.Performed By: [facility] [place], [place] [address]Vbkfunyyri Director: Young Lopez MD, PhDCLIA Number: [id number] Performed By: #### L [id number] ####[facility] ([facility])[address] [place] [address] 3010-20-2023 30 Normal [facility] 30 The patient is Moder ately Stable - Low risk of patient condition declining or worsening The patient's goals for the shift include comfort, SOB resolving, labs stable The clinical goals for the shift include safety, comfort, VS/labs stable [facility] 30 The patient is Moder ately Stable - Low risk of patient condition declining or worsening The patient's goals for the shift include comfort The clinical goals for the shift include safety Normal [facility] 30 The patient is Moder ately Stable - Low risk of patient condition declining or worsening The patient's goals for the shift include comfort The clinical goals for the shift include safety Normal [facility] ANTI-XA (HEPARIN LEVEL)on HEPARIN UNFRACTIONATED (U/ML) IN PPP BY CHROMOGENIC METHOD 0.75 IU/mL High 0.3-0.7 [facility] Comment on above: Order Comment: Check anti-Xa level every 6 hours while on heparin infusion, or per protocol. Result Comment: [place] roxaban and Apixaban will interfere with the anti Xa assay used to monitor UFH and LMWH. Performed By: #### L [id number] ####[facility] (AKER)[address] [place] [address] HEPARIN UNFRACTIONATED (U/ML) IN PPP BY CHROMOGENIC METHOD >1.00 Critically high 0.3-0.7 [facility] Comment on above: Order Comment: Check anti-Xa level every 6 hours while on heparin infusion, or per protocol. Result Comment: [place] roxaban and Apixaban will interfere with the anti Xa assay used to monitor UFH and LMWH. Performed By: #### L [id number] ####[facility] (BE[facility]ER)[address] [place] [address] HEPARIN UNFRACTIONATED (U/ML) IN PPP BY CHROMOGENIC METHOD 0.81 IU/mL High 0.3-0.7 [facility] Comment on above: Order Comment: Check anti-Xa level every 6 hours while on heparin infusion, or per protocol. Result Comment: [place] roxaban and Apixaban will interfere with the anti Xa assay used to monitor UFH and LMWH. Performed By: #### L [id number] ####[facility] ([facility])[address] [place] [address] ASPERGILLUS GALACTOMANNAN AN TIGENon 10-20-2023 ASPERGILLUS GALACTOMANNAN ANTIGEN, SERUM Negative Normal Negative [facility] Comment on above: Result Comment: INTE RPRETIVE INFORMATION: Aspergillus Galactomannan Antigen by EIANegative results do not exclude the diagnosis of invasiveaspergillosis. A single positive test result (index equalto or greater than 0.5) should be clinically correlatedby testing a separate serum specimen because many agents(e.g. foods, antibiotics) may cross-react with the test.If invasive aspergillosis is suspected in high-riskpatients, serial sampling is recommended.Performed By: [facility] [place], [place] [address]Lollqujifu Director: Young Lopez MD, PhDCLIA Number: [id number] Performed By: #### L [id number] ####[facility] ([facility])[address] [place] [address] ASPERGILLUS GALACTOMANNAN INDEX 0.06 Normal [facility] Comment on above: Performed By: #### L [id number] ####[facility] ([facility])[address] [place] [address] BASIC METABOLIC PANELon 09-24 Anion gap [Moles/Vol] 12 mmol/L Normal 7-20 [facility] Comment on above: Performed By: #### L [id number] ####[facility] (BE[facility]ER)[address] [place] [address] Calcium [Mass/Vol] 9.1 mg/dL Normal 8.6-10.3 [facility] Comment on above: Performed By: #### L [id number] ####[facility] (BE[facility]ER)[address] [place] [address] Chloride [Moles/Vol] 112 mmol/L High 98-107 [facility] Comment on above: Performed By: #### L [id number] ####[facility] (BE[facility]ER)[address] [place] [address] CO2 [Moles/Vol] 22 mmol/L Normal 21-31 [facility] Comment on above: Performed By: #### L [id number] ####[facility] (BE[facility]ER)[address] [place] [address] Creatinine [Mass/Vol] 2.45 mg/dL High 0.60-1.20 [facility] Comment on above: Performed By: #### L [id number] ####[facility] ([facility])[address] [place] [address] GLOMERULAR FILTRATION RATE ML/MIN/1.73 SQ M.PREDICTED 21.7 mL/min/1.73m*2 Low >60.0 [facility] Comment on above: Result Comment: [facility]???s estimated glomerular filtration rate (eGFR) will [...] group of individuals. Performed By: #### L [id number] ####[facility] ([facility])[address] [place] [address] Glucose [Mass/Vol] 143 mg/dL High 70-100 [facility] Comment on above: Performed By: #### L [id number] ####[facility] ([facility])[address] [place] [address] Potassium [Moles/Vol] 4.1 mmol/L Normal 3.5-5.1 [facility] Comment on above: Performed By: #### L [id number] ####[facility] ([facility])[address] [place] [address] Sodium [Moles/Vol] 142 mmol/L Normal 136-145 [facility] Comment on above: Performed By: #### L [id number] ####[facility] ([facility])[address] [facility] [address] Urea nitrogen [Mass/Vol] 36 mg/dL High 7-25 [facility] Comment on above: Performed By: #### L [id number] ####[facility] ([facility])[address] [facility] [place] [address] UREA NITROGEN/CREATININE (MASS RATIO) IN SER/PLAS 14.7 Normal [facility] Comment on above: Performed By: #### L [id number] ####[facility] ([facility])[address] [place] [address] CBCon 10-20-2023 Erythrocyte distribution width (RBC) [Ratio] 13.4 % Normal 11.5-15.0 [facility] Comment on above: Performed By: #### L [id number] ####[facility] ([facility])[address] [place] [address] ERYTHROCYTE MEAN CORPUSCULAR HEMOGLOBIN CONCENTRATION (G/DL) BY AUTOMATED 31.8 g/dL Low 32.0-35.0 [facility] Comment on above: Performed By: #### L [id number] ####[facility] ([facility])[address] [place] [address] Hematocrit (Bld) [Volume fraction] 44.9 % Normal 36.0-48.0 [facility] Comment on above: Performed By: #### L [id number] ####[facility] ([facility])[address] [place] [address] Hemoglobin (Bld) [Mass/Vol] 14.3 g/dL Normal 12.0-15.0 [facility] Comment on above: Performed By: #### L [id number] ####[facility] ([facility])[address] [place] [address] MCH (RBC) [Entitic mass] 27.4 pg Normal 27.0-33.0 [facility] Comment on above: Performed By: #### L [id number] ####[facility] ([facility])[address] [place] [address] MCV (RBC) [Entitic vol] 86.2 fL Normal 82.0-98.0 [facility] Comment on above: Performed By: #### L [id number] ####[facility] ([facility])[address] [place] [address] PLATELETS (10*3/UL) IN BLOOD AUTOMATED COUNT 169 10*3/uL Normal 150-400 [facility] Comment on above: Performed By: #### L [id number] ####[facility] ([facility]ER)[address] [place] [address] RBC (Bld) [#/Vol] 5.21 10*6/uL High 3.80-5.00 [facility] Comment on above: Performed By: #### L [id number] ####[facility] (BEAKER)[address] [place] [address] WBC (Bld) [#/Vol] 10.27 10*3/uL Normal 4.00-10.60 [facility] Comment on above: Performed By: #### L [id number] ####[facility] (BE[facility]ER)[address] [place] [address] CBC WITH AUTO DIFFERENTIALon 10-20-2023 Basophils (Bld) [#/Vol] 0.05 10*3/uL Normal 0.00-0.20 [facility] Comment on above: Performed By: #### L [id number] ####[facility] (BE[facility]ER)[address] [place] [address] Basophils/100 WBC (Bld) 0.5 % Normal 0.0-1.0 [facility] Comment on above: Performed By: #### L [id number] ####[facility] (BE[facility]ER)[address] [place] [address] Eosinophils (Bld) [#/Vol] 0.09 10*3/uL Normal 0.00-0.50 [facility] Comment on above: Performed By: #### L [id number] ####[facility] (BEAKER)[address] [place] [address] Eosinophils/100 WBC (Bld) 0.9 % Normal 0.0-6.0 [facility] Comment on above: Performed By: #### L [id number] ####[facility] (BE[facility]ER)[address] [place] [address] Erythrocyte distribution width (RBC) [Ratio] 13.6 % Normal 11.5-15.0 [facility] Comment on above: Performed By: #### L [id number] ####[facility] ([facility])[address] [place] [address] ERYTHROCYTE MEAN CORPUSCULAR HEMOGLOBIN CONCENTRATION (G/DL) BY AUTOMATED 32.6 g/dL Normal 32.0-35.0 [facility] Comment on above: Performed By: #### L [id number] ####[facility] ([facility])[address] [place] [address] Hematocrit (Bld) [Volume fraction] 44.2 % Normal 36.0-48.0 [facility] Comment on above: Performed By: #### L [id number] ####[facility] (BE[facility]ER)[address] [place] [address] Hemoglobin (Bld) [Mass/Vol] 14.4 g/dL Normal 12.0-15.0 [facility] Comment on above: Performed By: #### L [id number] ####[facility] (BEAKER)[address] [place] [address] Immature granulocytes (Bld) [#/Vol] 0.07 10*3/uL Normal 0.00-0.20 [facility] Comment on above: Performed By: #### L [id number] ####[facility] (BEAKER)[address] [place] [address] Immature granulocytes/100 WBC (Bld) 0.7 % Normal 0.0-1.0 [facility] Comment on above: Performed By: #### L [id number] ####[facility] (BE[facility]ER)[address] [place] [address] Lymphocytes (Bld) [#/Vol] 1.98 10*3/uL Normal 1.20-4.00 [facility] Comment on above: Performed By: #### L [id number] ####[facility] (BEAKER)[address] [place] [address] Lymphocytes/100 WBC (Bld) 19.9 % Low 20.0-45.0 [facility] Comment on above: Performed By: #### L [id number] ####[facility] (BEAKER)[address] [place] [address] MCH (RBC) [Entitic mass] 27.5 pg Normal 27.0-33.0 [facility] Comment on above: Performed By: #### L [id number] ####[facility] (BEAKER)[address] [place] [address] MCV (RBC) [Entitic vol] 84.4 fL Normal 82.0-98.0 [facility] Comment on above: Performed By: #### L [id number] ####[facility] (BEAKER)[address] [place] [address] Monocytes (Bld) [#/Vol] 1.26 10*3/uL High 0.10-1.00 [facility] Comment on above: Performed By: #### L [id number] ####[facility] (BE[facility]ER)[address] [place] [address] Monocytes/100 WBC (Bld) 12.6 % High 5.0-12.0 [facility] Comment on above: Performed By: #### L [id number] ####[facility] (BE[facility]ER)[address] [place] [address] Neutrophils (Bld) [#/Vol] 6.52 10*3/uL Normal 1.60-7.60 [facility] Comment on above: Performed By: #### L [id number] ####[facility] (BEAKER)[address] [place] [address] Neutrophils/100 WBC (Bld) 65.4 % Normal 40.0-72.0 [facility] Comment on above: Performed By: #### L [id number] ####[facility] (BEAKER)[address] [place] [address] NRBC (PER 100 WBCS) BY AUTOMATED COUNT 0.0 % Normal 0 [facility] Comment on above: Performed By: #### L [id number] ####[facility] (BEAKER)[address] [facility] [address] PLATELETS (10*3/UL) IN BLOOD AUTOMATED COUNT 160 10*3/uL Normal 150-400 [facility] Comment on above: Performed By: #### L [id number] ####[facility] ([facility])[address] [facility] [address] RBC (Bld) [#/Vol] 5.24 10*6/uL High 3.80-5.00 [facility] Comment on above: Performed By: #### L [id number] ####[facility] ([facility])[address] [place] [address] WBC (Bld) [#/Vol] 9.97 10*3/uL Normal 4.00-10.60 [facility] Comment on above: Performed By: #### L [id number] ####[facility] ([facility])[address] [place] [address] CMV DNA, QUANTITATIVE, NAAT, PLASMAon 10-20-2023 CMV QNT BY NAAT, PLASMA INTERP Not detected Normal Not Detected [facility] Comment on above: Result Comment: INTE RPRETIVE INFORMATION: CMV by Quantitative NAAT, PlasmaThe quantitative range of this test is 1.54 - 7.00 log IU/mL (34.5- 10,000,000 IU/mL).An interpretation of Not Detected does not rule out the presenceof inhibitors or CMV DNA concentration below the level ofdetection of the assay. Care should be taken in the interpretationof any single viral load determination.International standardization has improved comparability of assayresults across laboratories, but discrepancies still exist due tocommutability issues with the standard.Performed By: [facility] [place], [place] [address]Cjlpopherc Director: Young Lopez MD, PhDCLIA Number: [id number] Performed By: #### L [id number] ####[facility] ([facility])[address] [place] [address] CMV QNT BY NAAT, PLASMA IU/ML Not detected Normal [facility] Comment on above: Performed By: #### L [id number] ####[facility] ([facility])[address] [place] [address] CMV QNT BY NAAT, PLASMA LOG IU/ML Not detected Normal [facility] Comment on above: Performed By: #### L [id number] ####[facility] ([facility] [address])[address] [place] [address] CONSULTon 10-20-2023 CONSULT Normal [facility] CONSULT Normal [facility] POCT GLUCOSE METER UNSOLICIT ED RESULTSon 10-20-2023 Glucose [Mass/Vol] 176 mg/dL High 70-105 [facility] Comment on above: Order Comment: Waive d Testing in the ED is performed under the ED CLIA certificate #[id number]. Result Comment: [email or web address] Performed By: #### L [id number] ####[facility] ([place])[address] [place] [address] Glucose [Mass/Vol] 198 mg/dL High 70-105 [facility] Comment on above: Order Comment: Waive d Testing in the ED is performed under the ED CLIA certificate #[id number]. Result Comment: [email or web address] Performed By: #### L [id number] ####[facility] ([place])[address] [place] [address] Glucose [Mass/Vol] 175 mg/dL High 70-105 [facility] Comment on above: Order Comment: Waive d Testing in the ED is performed under the ED CLIA certificate #[id number]. Result Comment: [email or web address] ser Performed By: #### L [id number] ####[facility] ([facility])[address] [place] [address] Glucose [Mass/Vol] 143 mg/dL High 70-105 [facility] Comment on above: Order Comment: Waive d Testing in the ED is performed under the ED CLIA certificate #[id number]. Result Comment: dorothea bradfordking Performed By: #### L [id number] ####[facility] ([place])[address] [place] [address] Glucose [Mass/Vol] 87 mg/dL Normal 70-105 [facility] Comment on above: Order Comment: Waive d Testing in the ED is performed under the ED CLIA certificate #[id number]. Result Comment: bgar row Performed By: #### L [id number] ####[facility] ([facility])[address] [place] [address] ANTI-XA (HEPARIN LEVEL)on HEPARIN UNFRACTIONATED (U/ML) IN PPP BY CHROMOGENIC METHOD <0.10 Invalid Interpretation Code 0.3-0.7 [facility] Comment on above: Order Comment: Check anti-Xa level every 6 hours while on heparin infusion, or per protocol. Result Comment: Alicia roxaban and Apixaban will interfere with the anti Xa assay used to monitor UFH and LMWH. Performed By: #### L [id number] ####[facility] ([facility])[address] [place] [address] APTTon 10-19-2023 ACTIVATED PARTIAL THROMBOPLASTIN TIME IN PPP BY COAGULATION ASSAY 23.0 Seconds Low 25.0-35.0 [facility] Comment on above: Result Comment: Clin ical significance of the APTT is questionable in the presence of heparin. Performed By: #### L [id number] ####[facility] ([facility])[address] [place] [address] B-TYPE NATRIURETIC PEPTIDEon 10-19-2023 Natriuretic peptide B (Bld) [Mass/Vol] 170 pg/mL High 0-100 [facility] Comment on above: Performed By: #### L [id number] ####[facility] ([facility])[address] [place] [address] BASIC METABOLIC PANELon 09-24 Anion gap [Moles/Vol] 17 mmol/L Normal 7-20 [facility] Comment on above: Performed By: #### L [id number] ####[facility] ([facility])[address] [place] [address] Calcium [Mass/Vol] 10.2 mg/dL Normal 8.6-10.3 [facility] Comment on above: Performed By: #### L [id number] ####[facility] ([facility])[address] [place] [address] Chloride [Moles/Vol] 107 mmol/L Normal 98-107 [facility] Comment on above: Performed By: #### L [id number] ####[facility] ([facility])[address] [place] [address] CO2 [Moles/Vol] 19 mmol/L Low 21-31 [facility] Comment on above: Performed By: #### L [id number] ####[facility] ([facility])[address] [place] [address] Creatinine [Mass/Vol] 2.69 mg/dL High 0.60-1.20 [facility] Comment on above: Performed By: #### L [id number] ####[facility] ([facility])[address] [place] [address] GLOMERULAR FILTRATION RATE ML/MIN/1.73 SQ M.PREDICTED 19.4 mL/min/1.73m*2 Low >60.0 [facility] Comment on above: Result Comment: [facility]???s estimated glomerular filtration rate (eGFR) will [...] group of individuals. Performed By: #### L [id number] ####[facility] ([facility])[address] [place] [address] Glucose [Mass/Vol] 200 mg/dL High 70-100 [facility] Comment on above: Performed By: #### L [id number] ####[facility] ([facility])[address] [place] [address] Potassium [Moles/Vol] 4.6 mmol/L Normal 3.5-5.1 [facility] Comment on above: Performed By: #### L [id number] ####[facility] ([facility])[address] [place] [address] Sodium [Moles/Vol] 138 mmol/L Normal 136-145 [facility] Comment on above: Performed By: #### L [id number] ####[facility] ([facility])[address] [place] [address] Urea nitrogen [Mass/Vol] 41 mg/dL High 7-25 [facility] Comment on above: Performed By: #### L [id number] ####[facility] ([facility])[address] [place] [address] UREA NITROGEN/CREATININE (MASS RATIO) IN SER/PLAS 15.2 Normal [facility] Comment on above: Performed By: #### L [id number] ####[facility] ([facility])[address] [place] [address] CBC WITH AUTO DIFFERENTIALon 10-19-2023 Basophils (Bld) [#/Vol] 0.04 10*3/uL Normal 0.00-0.20 [facility] Comment on above: Performed By: #### L [id number] ####[facility] ([facility])[address] [place] [address] Basophils/100 WBC (Bld) 0.3 % Normal 0.0-1.0 [facility] Comment on above: Performed By: #### L [id number] ####[facility] ([facility])[address] [place] [address] Eosinophils (Bld) [#/Vol] 0.02 10*3/uL Normal 0.00-0.50 [facility] Comment on above: Performed By: #### L [id number] ####[facility] ([facility])[address] [place] [address] Eosinophils/100 WBC (Bld) 0.2 % Normal 0.0-6.0 [facility] Comment on above: Performed By: #### L [id number] ####[facility] ([facility])[address] [place] [address] Erythrocyte distribution width (RBC) [Ratio] 13.5 % Normal 11.5-15.0 [facility] Comment on above: Performed By: #### L [id number] ####[facility] ([facility])[address] [place] [address] ERYTHROCYTE MEAN CORPUSCULAR HEMOGLOBIN CONCENTRATION (G/DL) BY AUTOMATED 32.9 g/dL Normal 32.0-35.0 [facility] Comment on above: Performed By: #### L [id number] ####[facility] ([facility])[address] [place] [address] Hematocrit (Bld) [Volume fraction] 49.8 % High 36.0-48.0 [facility] Comment on above: Performed By: #### L [id number] ####[facility] ([facility])[address] [place] [address] Hemoglobin (Bld) [Mass/Vol] 16.4 g/dL High 12.0-15.0 [facility] Comment on above: Performed By: #### L [id number] ####[facility] ([facility])[address] [place] [address] Immature granulocytes (Bld) [#/Vol] 0.08 10*3/uL Normal 0.00-0.20 [facility] Comment on above: Performed By: #### L [id number] ####[facility] ([facility])[address] [place] [address] Immature granulocytes/100 WBC (Bld) 0.7 % Normal 0.0-1.0 [facility] Comment on above: Performed By: #### L [id number] ####[facility] ([facility])[address] [place] [address] Lymphocytes (Bld) [#/Vol] 1.29 10*3/uL Normal 1.20-4.00 [facility] Comment on above: Performed By: #### L [id number] ####[facility] (BEAKER)[address] [place] [address] Lymphocytes/100 WBC (Bld) 11.1 % Low 20.0-45.0 [facility] Comment on above: Performed By: #### L [id number] ####[facility] (BEAKER)[address] [place] [address] MCH (RBC) [Entitic mass] 27.7 pg Normal 27.0-33.0 [facility] Comment on above: Performed By: #### L [id number] ####[facility] (BEAKER)[address] [place] [address] MCV (RBC) [Entitic vol] 84.1 fL Normal 82.0-98.0 [facility] Comment on above: Performed By: #### L [id number] ####[facility] (BEAKER)[address] [place] [address] Monocytes (Bld) [#/Vol] 0.84 10*3/uL Normal 0.10-1.00 [facility] Comment on above: Performed By: #### L [id number] ####[facility] (BEAKER)[address] [place] [address] Monocytes/100 WBC (Bld) 7.2 % Normal 5.0-12.0 [facility] Comment on above: Performed By: #### L [id number] ####[facility] (BEAKER)[address] [place] [address] Neutrophils (Bld) [#/Vol] 9.36 10*3/uL High 1.60-7.60 [facility] Comment on above: Performed By: #### L [id number] ####[facility] (BEAKER)[address] [place] [address] Neutrophils/100 WBC (Bld) 80.5 % High 40.0-72.0 [facility] Comment on above: Performed By: #### L [id number] ####[facility] (BEAKER)[address] [place] [address] NRBC (PER 100 WBCS) BY AUTOMATED COUNT 0.0 % Normal 0 [facility] Comment on above: Performed By: #### L [id number] ####[facility] ([facility])[address] [place] [address] PLATELETS (10*3/UL) IN BLOOD AUTOMATED COUNT 174 10*3/uL Normal 150-400 [facility] Comment on above: Performed By: #### L [id number] ####[facility] ([facility])[address] [place] [address] RBC (Bld) [#/Vol] 5.92 10*6/uL High 3.80-5.00 [facility] Comment on above: Performed By: #### L [id number] ####[facility] ([facility])[address] [facility] [place] [address] WBC (Bld) [#/Vol] 11.63 10*3/uL High 4.00-10.60 [facility] Comment on above: Performed By: #### L [id number] ####[facility] ([facility])[address] [place] [address] CT CHEST WO IV CONTRASTon CT CHEST WO IV CONTRAST Normal [facility] D-DIMER, QUANTITATIVEon 09-24 FIBRIN D-DIMER (UG/L FEU) IN PLATELET POOR PLASMA 11.36 mcg/mL FEU High 0.27-0.49 [facility] Comment on above: Order Comment: D-Dim er values of less than 0.50 ug/ml (FEU) are considered to be a negative predictor of thrombosis. However, the D-Dimer result should be used in conjunction with pretest probability and should not be used alone to diagnose a thrombotic event. Performed By: #### L [id number] ####[facility] ([facility])[address] [place] [address] EDNURSon 10-19-2023 EDNURS Normal [facility] EDPROVon 10-19-2023 EDPROV Normal [facility] EDPROV This report has been cancelled. Normal [facility] HPon 10-19-2023 HP Normal [facility] LACTIC ACID WITH 4 HOUR REFL EXon 10-19-2023 LACTATE (MMOL/L) IN SER/PLAS 1.5 mmol/L Normal 0.5-2.2 [facility] Comment on above: Performed By: #### L [id number] ####[facility] ([facility])[address] [place] [address] NM LUNG VENTILATION PERFUSIO Non 10-19-2023 NM LUNG VENTILATION PERFUSION Normal [facility] PLATELET COUNTon 10-19-2023 PLATELETS (10*3/UL) IN BLOOD AUTOMATED COUNT 168 10*3/uL Normal 150-400 [facility] Comment on above: Performed By: #### L [id number] ####[facility] ([facility])[address] [place] [address] POCT GLUCOSE METER UNSOLICIT ED RESULTSon 10-19-2023 Glucose [Mass/Vol] 77 mg/dL Normal 70-105 [facility] Comment on above: Order Comment: Waive d Testing in the ED is performed under the ED CLIA certificate #[id number]. Result Comment: deepti spaulding Performed By: #### L [id number] ####[facility] ([facility])[address] [place] [address] PROTIME-INRon 10-19-2023 INR IN PPP BY COAGULATION ASSAY 0.94 Normal 0.90-1.10 [facility] Comment on above: Result Comment: [facility] P RECOMMENDED INR FOR WARFARIN THERAPY CONDITION INRPROPHYLAXIS OF VENOUS THROMBOSIS 2-3(HIGH-RISK SURGERY)TREATMENT OF VENOUS THROMBOSIS 2-3TREATMENT OF PULMONARY EMBOLISM 2-3PREVENTION OF SYSTEMIC EMBOLISM: 2-3 ACUTE MYOCARDIAL INFARCTION TISSUE HEART VALVES VALVULAR HEART DISEASE ATRIAL FIBRILLATION RECURRENT SYSTEMIC EMBOLISMMECHANICAL HEART VALVE 2.5-3.5 FROM: ORAL ANTICOAGULANTS. MECHANISM OF ACTION, CLINICAL EFFECTIVENESS, AND OPTIMAL THERAPEUTIC RANGE. CHEST 1995;108:231S-246S. Performed By: #### L [id number] ####[facility] ([facility])[address] [place] [address] PROTHROMBIN TIME (PT) IN PPP BY COAGULATION ASSAY 12.6 Seconds Normal 12.3-14.8 [facility] Comment on above: Performed By: #### L [id number] ####[facility] ([facility])[address] [place] [address] TROPONIN Ion 10-19-2023 Troponin I.cardiac [Mass/Vol] 0.03 ng/mL Normal 0.00-0.04 [facility] Comment on above: Performed By: #### L [id number] ####[facility] ([facility])[address] [place] [address] MG MAMM SCREEN 3D JAZMIN CADon 03-07-2022 MG MAMM SCREEN 3D JAZMIN CAD Patient: JA TAVERA Exam Date: 03/07/2022 : 1960 Gender:F Ordering : DR ALEJANDRO VILLAGRAN D.O. Admission #: [id number] Family : Order #: [id number] CLICK HERE TO VIEW EXAM RADIOLOGY REPORT [...] prostate cancer at age 51. LOCATION: [facility] BREAST COMPOSITION: Heterogeneously dense,which may obscure small [...] Liz M.D. on 03/07/2022 at 13:34 Normal [facility] XR DEXA BONE DENSITYon 03-07 XR [...] by: SCOTT LIZ Date: 2022-03-07 13:45 Normal [facility] FREE T3on 11-25-2021 FREE T3 1.85 pg/mlL Critically low 2.18-3.98 [facility] Comment on above: Performed By: #### F T3, TSH #### [facility] [address] [place], [place] [address] Dr. Ulysses Montero FREE T4on 11-25-2021 Free T4 [Mass/Vol] 1.29 ng/dL Normal 0.76-1.46 [facility] Comment on above: Performed By: #### F T4 #### [facility] [address] [place] [address] [address] Ulysses Montero TSHon 11-25-2021 TSH 0.023 uIU/mL Critically low 0.358-3.74 0 [facility] Comment on above: Performed By: #### F T3, TSH #### [facility] [address] [place] [address] [address] Ulysses Montero CBC W/DIFFon 10-05-2021 ABS IMM GRANS 0.1 10*3/uL Normal 0.0-0.2 [facility] Comment on above: Performed By: #### 5 0103 #### [facility] [address] ABS NEUTROPHILS 5.1 10*3/uL Normal 1.6-7.6 [facility] Comment on above: Performed By: #### 5 0103 #### [facility] [address] Basophils (Bld) [#/Vol] 0.1 10*3/uL Normal 0.0-0.2 [facility] Comment on above: Performed By: #### 5 0103 #### [facility] [address] Basophils/100 WBC (Bld) 0.7 % Normal 0.0-1.0 [facility] Comment on above: Performed By: #### 5 0103 #### [facility] [address] Eosinophils (Bld) [#/Vol] 0.2 10*3/uL Normal 0.0-0.5 [facility] Comment on above: Performed By: #### 5 0103 #### [facility] [address] [place] [address], [facility] Eosinophils/100 WBC (Bld) 2.2 % Normal 0.0-6.0 [facility] Comment on above: Performed By: #### 5 0103 #### [facility] [address] Erythrocyte distribution width (RBC) [Ratio] 13.4 % Normal 11.5-15.0 [facility] Comment on above: Performed By: #### 3 #### [facility] [address] [place] [address], [facility] Hematocrit (Bld) [Volume fraction] 39.9 % Normal 36.0-45.0 [facility] Comment on above: Performed By: #### 3 #### [facility] [address] [facility] [address] Hemoglobin (Bld) [Mass/Vol] 13.0 g/dL Normal 12.0-15.0 [facility] Comment on above: Performed By: #### 102 #### [facility] [address] [facility] [place] [address], [facility] IMMATURE GRANS 0.6 % Normal 0.0-1.0 [facility] Comment on above: Performed By: #### 5 3 #### [facility] [address] [facility]. [address] Lymphocytes (Bld) [#/Vol] 2.6 10*3/uL Normal 1.2-4.0 [facility] Comment on above: Performed By: #### 5 3 #### [facility] [address] [facility] [address] Lymphocytes/100 WBC (Bld) 28.7 % Normal 20.0-45.0 [facility] Comment on above: Performed By: #### 5 3 #### [facility] [address] [facility] [place] [address], [facility] MCH (RBC) [Entitic mass] 27.9 pg Normal 27.0-33.0 [facility] Comment on above: Performed By: #### 5 3 #### [facility] [address] [facility] MCHC (RBC) [Mass/Vol] 32.6 g/dL Normal 32.0-35.0 [facility] Comment on above: Performed By: #### 5 0103 #### [facility] [address] [facility] [place] [address], [facility] MCV (RBC) [Entitic vol] 85.6 fL Normal 82.0-98.0 [facility] Comment on above: Performed By: #### 5 0103 #### [facility] [address] [place] [address], [facility] Monocytes (Bld) [#/Vol] 1.1 10*3/uL High 0.1-1.0 [facility] Comment on above: Performed By: #### 5 0103 #### [facility] [address] MONOS 11.9 % Normal 5.0-12.0 [facility] Comment on above: Performed By: #### 5 0103 #### [facility] [address] [place] [address], [facility] Neutrophils/100 WBC (Bld) 55.9 % Normal 40.0-72.0 [facility] Comment on above: Performed By: #### 5 0103 #### [facility] [address] [place] [address], [facility] Nucleated RBC/100 WBC (Bld) [Ratio] 0 % Normal 0-0 [facility] Comment on above: Performed By: #### 5 0103 #### [facility] [address] [facility] [place] [address], [facility] PLAT CNT 164 10*3/uL Normal 150-400 [facility] Comment on above: Performed By: #### 5 3 #### [facility] [address] [facility] [place] [address], [facility] RBC (Bld) [#/Vol] 4.66 10*6/uL Normal 3.80-5.00 [facility] Comment on above: Performed By: #### 5 0103 #### [facility] [address] [place] [address], [facility] WBC (Bld) [#/Vol] 9.04 10*3/uL Normal 4.00-10.60 [facility] Comment on above: Performed By: #### 5 0103 #### [facility] [address] [place] [address], [facility] COMP METABOLIC PANELon 10-05 Albumin [Mass/Vol] 3.8 g/dL Normal 3.5-5.7 [facility] Comment on above: Performed By: #### 0 0121, 06976, 82975, 45126, 84118, 95916 ####[facility] [facility] ALKALINE PHOSPH 51 IU/L Normal 34-104 [facility] Comment on above: Performed By: #### 0 0121, 11270, 57454, 91289, 26250, 68929 ####[facility] [facility] ALT [Catalytic activity/Vol] 16 U/L Normal 7-52 [facility] Comment on above: Performed By: #### 0 0121, 76947, 71101, 16396, 04004, 38646 ####[facility] [facility] [place] [address], [facility] AST [Catalytic activity/Vol] 18 U/L Normal 13-39 [facility] Comment on above: Performed By: #### 0 0121, 55563, 06967, 17577, 64015, 68783 ####[facility] [facility] [address], [facility] Bilirubin [Mass/Vol] 0.8 mg/dL Normal 0.3-1.0 [facility] Comment on above: Performed By: #### 0 0121, 04756, 73126, 00697, 14012, 64752 ####[facility] [place] [address], [facility] Calcium [Mass/Vol] 9.9 mg/dL Normal 8.6-10.3 [facility] Comment on above: Performed By: #### 0 0121, 07694, 59021, 69072, 92168, 40302 ####[facility] [place] [address], [place] Chloride [Moles/Vol] 107 mmol/L Normal 98-107 [facility] Comment on above: Performed By: #### 0 0121, 05489, 20803, 82200, 62326, 25303 ####[facility] [place] [address], [place] CO2 [Moles/Vol] 27 mmol/L Normal 21-31 [facility] Comment on above: Performed By: #### 0 0121, 84118, 72720, 24103, 17501, 88561 ####[facility] [place] [address], [facility] Creatinine [Mass/Vol] 2.35 mg/dL High 0.60-1.20 [facility] Comment on above: Performed By: #### 0 0121, 61027, 41043, 36107, 31175, 93209 ####[facility] [place] [address], [place] EGFR 23 ml/min/1.73sq m Abnormal >60 [facility] Comment on above: Result Comment: [facility]'s estimated glomerular filtration rate (eGFR) will [...] of individuals. Performed By: #### 0 0121, 80414, 14150, 28229, 64689, 60764 ####[facility] [place] [address], [place] Glucose [Mass/Vol] 89 mg/dL Normal 70-100 [facility] Comment on above: Performed By: #### 0 0121, 28025, 28959, 17380, 96528, 10390 ####[facility] [place] [address], [place] Potassium [Moles/Vol] 3.5 mmol/L Normal 3.5-5.1 [facility] Comment on above: Performed By: #### 0 0121, 26443, 55190, 77351, 02078, 44634 ####[facility] [place] [address], [place] Protein [Mass/Vol] 6.6 g/dL Normal 6.0-8.3 [facility] Comment on above: Performed By: #### 0 0121, 38983, 81538, 44565, 52134, 98094 ####[facility] [place] [address], [place] Sodium [Moles/Vol] 141 mmol/L Normal 136-145 [facility] Comment on above: Performed By: #### 0 0121, 28661, 19542, 30820, 57343, 37877 ####[facility] [place] [address], [place] Urea nitrogen [Mass/Vol] 34 mg/dL High 7-25 [facility] Comment on above: Performed By: #### 0 0121, 72255, 79121, 09388, 08280, 68037 ####[facility] [place] [address], [facility] DIRECT BILIon 10-05-2021 Bilirubin.direct [Mass/Vol] 0.2 mg/dL Normal 0.0-0.2 [facility] Comment on above: Performed By: #### 0 0121, 37908, 65830, 84199, 24110, 33699 ####[facility] [place] [address], [facility] LIPID PROFILEon 10-05-2021 Cholesterol [Mass/Vol] 205 mg/dL High 120-200 [facility] Comment on above: Result Comment: CHOL ESTEROL REFERENCE RANGE: 20 YEARS AND OLDER CARDIOVASCULAR RISK Less than 200 mg/dl Low Risk 200 to 239 mg/dl Borderline Risk 240 mg/dl and greater High Risk Performed By: #### 0 0121, 54177, 15374, 41224, 51943, 70656 ####[facility] [facility] [place] [address], [facility] Cholesterol in HDL [Mass/Vol] 47 mg/dL Normal 23-92 [facility] Comment on above: Result Comment: Slig ht variation in normal range could be due to gender and/or age. HDL CHOLESTEROL REFERENCE RANGE: 20 years and older Cardiovascular Risk > or =60 mg/dL Desirable 40 TO 59 mg/dL Low Risk <40 mg/dL High Risk Performed By: #### 0 0121, 39270, 65392, 67523, 60319, 80235 ####[facility] [facility] [place] [address], [facility] Cholesterol in LDL [Mass/Vol] 116 mg/dL Normal 0-130 [facility] Comment on above: Result Comment: LDL IS A CALCULATION LDL IS ONLY VALID IF THE TRIG IS LESS THAN 400. Performed By: #### 0 0121, 14975, 09691, 65519, 97938, 24930 ####[facility] [place] [address], [facility] Cholesterol.total/Ch olesterol in HDL [Mass ratio] 4.4 {ratio} Normal .0-4.5 [facility] Comment on above: Performed By: #### 0 0121, 05605, 27025, 34270, 80777, 47092 ####[facility] NON-HDL CHOLESTEROL 158 mg/dL Normal [facility] Comment on above: Performed By: #### 0 0121, 98802, 00446, 46217, 17714, 38046 ####[facility] Triglyceride [Mass/Vol] 211 mg/dL High 40-149 [facility] Comment on above: Result Comment: TRIG LYCERIDE REFERENCE RANGE: 20 YEARS AND OLDER CARDIOVASCULAR RISK LESS THAN 150 mg/dl LOW RISK 150 TO 199 mg/dl BORDERLINE RISK 200 mg/dl AND GREATER HIGH RISK Performed By: #### 0 0121, 18478, 46164, 60676, 93944, 98642 ####[facility] VLDL CHOL 42 mg/dL High 0-40 [facility] Comment on above: Performed By: #### 0 0121, 08555, 52680, 84188, 29052, 78037 ####[facility] [place] [address], [facility] MAGNESIUM BLOODon 10-05-2021 Magnesium [Mass/Vol] 2.0 mg/dL Normal 1.9-2.7 [facility] Comment on above: Performed By: #### 0 0121, 69078, 99246, 38459, 86818, 56526 ####[facility] [place] [address], [facility] PHOSPHORUS BLOODon Phosphate [Mass/Vol] 3.3 mg/dL Normal 2.5-5.0 [facility] Comment on above: Performed By: #### 0 0121, 02883, 76196, 20594, 92979, 78424 ####[id number] [facility] [place] [address], [facility] TACROLIMUSon 10-05-2021 Tacrolimus (Bld) [Mass/Vol] 3.1 ng/mL Low 5.0-20.0 [facility] Comment on above: Result Comment: The [employer] Tacrolimus assay is a delayed one-step immunoassay for the quantitative determination of tacrolimus in human whole blood using the chemiluminescent microparticle immunoassay (CMIA) technology with flexible assay protocols, referred to as Chemiflex. Performed By: #### 9 9914 ####[facility] [place] [address], [facility] URIC ACID BLOODon 10-05-2021 Urate [Mass/Vol] 3.2 mg/dL Normal 2.3-6.6 [facility] Comment on above: Performed By: #### 0 0121, 20263, 36661, 53762, 61682, 83860 ####[facility] BK VIRUS QUANTITATION FOR PL ASMAon 09-28-2021 BKV Plasma Quantitation by PCR Not detected Normal [facility] Comment on above: Result Comment: Meth od: BK virus was measured by quantitative polymerase chain reaction using a fluorescent hydrolysis probe targeting the polyomavirus BK MANGLE ROLL OPERATOR-1 gene. The lower limit of quantitation of the assay is 500 copies of BK genome per milliliter of plasma or urine, and any detectable BK DNA below that level is reported as: Detected, <500 copies/ml. Serial BK virus measurement can be used to monitor disease activity. (Reference: George reyl. J CLIN MICRO 2004; 42:9932-7645). This test was developed and its performance characteristics determined by the [facility]. It has not been approved by the US Food and Drug Administration. However, such approval is not required for clinical implementation, and test results have been shown to be clinically useful. This laboratory is CAP accredited and CLIA certified to perform high complexity testing. Performed By: #### 5 0103 #### [facility] [address] [place] [address], [facility] BKV Plasma Quantitation Log by PCR Not detected Normal [facility] Comment on above: Performed By: #### 5 0103 #### [facility] [address] [facility] [place] [address], [facility] CBC W/DIFFon 09-28-2021 ABS IMM GRANS 0.1 10*3/uL Normal 0.0-0.2 [facility] Comment on above: Performed By: #### 5 0103 #### [facility] [address] [place] [address], [facility] ABS NEUTROPHILS 4.5 10*3/uL Normal 1.6-7.6 [facility] Comment on above: Performed By: #### 5 0103 #### [facility] [address] [facility] [place] [address], [facility] Basophils (Bld) [#/Vol] 0.1 10*3/uL Normal 0.0-0.2 [facility] Comment on above: Performed By: #### 5 0103 #### [facility] [address] [place] [address], [facility] Basophils/100 WBC (Bld) 0.8 % Normal 0.0-1.0 [facility] Comment on above: Performed By: #### 5 0103 #### [facility] [address] [facility] [place] [address], [facility] Eosinophils (Bld) [#/Vol] 0.1 10*3/uL Normal 0.0-0.5 [facility] Comment on above: Performed By: #### 5 0103 #### [facility] [address] [place] [address], [facility] Eosinophils/100 WBC (Bld) 1.5 % Normal 0.0-6.0 [facility] Comment on above: Performed By: #### 5 0103 #### [facility] [address] [facility]. [address] Erythrocyte distribution width (RBC) [Ratio] 12.9 % Normal 11.5-15.0 [facility] Comment on above: Performed By: #### 5 0103 #### [facility] [address] [facility] [address], [facility] Hematocrit (Bld) [Volume fraction] 39.6 % Normal 36.0-45.0 [facility] Comment on above: Performed By: #### 5 0103 #### [facility] [address] [facility] [place] [address], [facility] Hemoglobin (Bld) [Mass/Vol] 12.6 g/dL Normal 12.0-15.0 [facility] Comment on above: Performed By: #### 5 0103 #### [facility] [address] [facility] [address], [facility] IMMATURE GRANS 0.9 % Normal 0.0-1.0 [facility] Comment on above: Performed By: #### 5 0103 #### [facility] [address] [facility] [place] [address], [facility] Lymphocytes (Bld) [#/Vol] 2.1 10*3/uL Normal 1.2-4.0 [facility] Comment on above: Performed By: #### 5 0103 #### [facility] [address] [facility] [place] [address], [facility] Lymphocytes/100 WBC (Bld) 26.5 % Normal 20.0-45.0 [facility] Comment on above: Performed By: #### 5 0103 #### [facility] [address] [facility] [address], [facility] MCH (RBC) [Entitic mass] 27.7 pg Normal 27.0-33.0 [facility] Comment on above: Performed By: #### 5 3 #### [facility] [address] [place] [address], [facility] MCHC (RBC) [Mass/Vol] 31.8 g/dL Low 32.0-35.0 [facility] Comment on above: Performed By: #### 5 0103 #### [facility] [address] [facility] [place] [address], [facility] MCV (RBC) [Entitic vol] 87.0 fL Normal 82.0-98.0 [facility] Comment on above: Performed By: #### 5 0103 #### [facility] [address] [facility] [place] [address], [facility] Monocytes (Bld) [#/Vol] 1.1 10*3/uL High 0.1-1.0 [facility] Comment on above: Performed By: #### 5 0103 #### [facility] [address] [place] [address], [facility] MONOS 13.2 % High 5.0-12.0 [facility] Comment on above: Performed By: #### 5 0103 #### [facility] [address] Neutrophils/100 WBC (Bld) 57.1 % Normal 40.0-72.0 [facility] Comment on above: Performed By: #### 5 0103 #### [facility] [address] [place] [address], [facility] Nucleated RBC/100 WBC (Bld) [Ratio] 0 % Normal 0-0 [facility] Comment on above: Performed By: #### 5 0103 #### [facility] [address] [facility] [place] [address], [facility] PLAT CNT 205 10*3/uL Normal 150-400 [facility] Comment on above: Performed By: #### 5 3 #### [facility] [address] [facility] [place] [address], [facility] RBC (Bld) [#/Vol] 4.55 10*6/uL Normal 3.80-5.00 [facility] Comment on above: Performed By: #### 5 0103 #### [facility] [address] [place] [address], [facility] WBC (Bld) [#/Vol] 7.93 10*3/uL Normal 4.00-10.60 [facility] Comment on above: Performed By: #### 5 0103 #### [facility] [address] [place] [address], [facility] COMP METABOLIC PANELon 09-28 Albumin [Mass/Vol] 3.8 g/dL Normal 3.5-5.7 [facility] Comment on above: Performed By: #### 4 6413, 89485, 02373, 55819, 97705, 01421 ####[facility] [place] [address], [facility] ALKALINE PHOSPH 60 IU/L Normal 34-104 [facility] Comment on above: Performed By: #### 4 6413, 30933, 43128, 61482, 29301, 68994 ####[facility] [place] [address], [facility] ALT [Catalytic activity/Vol] 15 U/L Normal 7-52 [facility] Comment on above: Performed By: #### 4 6413, 70926, 16562, 84418, 93931, 03591 ####[facility] [place] [address], [facility] AST [Catalytic activity/Vol] 15 U/L Normal 13-39 [facility] Comment on above: Performed By: #### 4 6413, 41977, 86985, 80242, 21946, 85881 ####[facility] [place] [address], [facility] Bilirubin [Mass/Vol] 0.6 mg/dL Normal 0.3-1.0 [facility] Comment on above: Performed By: #### 4 6413, 12174, 91167, 92600, 87164, 85369 ####[id number] [place] [address], [facility] Calcium [Mass/Vol] 9.5 mg/dL Normal 8.6-10.3 [facility] Comment on above: Performed By: #### 4 6413, 92797, 22112, 01068, 87346, 77633 ####[facility] [place] [address], [facility] Chloride [Moles/Vol] 107 mmol/L Normal 98-107 [facility] Comment on above: Performed By: #### 4 6413, 08906, 89982, 65424, 31291, 02300 ####[facility] [place] [address], [facility] CO2 [Moles/Vol] 24 mmol/L Normal 21-31 [facility] Comment on above: Performed By: #### 4 6413, 35340, 18653, 69560, 24219, 94948 ####[facility] [place] [address], [place] Creatinine [Mass/Vol] 2.44 mg/dL High 0.60-1.20 [facility] Comment on above: Performed By: #### 4 6413, 30260, 18442, 51219, 94530, 85422 ####[facility] [place] [address], [facility] EGFR 22 ml/min/1.73sq m Abnormal >60 [facility] Comment on above: Result Comment: [facility]'s estimated glomerular filtration rate (eGFR) will [...] of individuals. Performed By: #### 4 6413, 75687, 45581, 60859, 18526, 92666 ####[facility] [place] [address], [facility] Glucose [Mass/Vol] 118 mg/dL High 70-100 [facility] Comment on above: Performed By: #### 4 6413, 32366, 22067, 13055, 90040, 02084 ####[facility] [place] [address], [place] Potassium [Moles/Vol] 3.6 mmol/L Normal 3.5-5.1 [facility] Comment on above: Performed By: #### 4 6413, 56167, 52536, 18829, 47795, 65139 ####[facility] [place] [address], [place] Protein [Mass/Vol] 6.4 g/dL Normal 6.0-8.3 [facility] Comment on above: Performed By: #### 4 6413, 28625, 64663, 05321, 93792, 63522 ####[facility] [place] [address], [place] Sodium [Moles/Vol] 140 mmol/L Normal 136-145 [facility] Comment on above: Performed By: #### 4 6413, 48038, 59229, 34236, 02422, 76539 ####[facility] [place] [address], [place] Urea nitrogen [Mass/Vol] 43 mg/dL High 7-25 [facility] Comment on above: Performed By: #### 4 6413, 83414, 22298, 11656, 87625, 47748 ####[facility] [place] [address], [place] DIRECT BILIon 09-28-2021 Bilirubin.direct [Mass/Vol] 0.1 mg/dL Normal 0.0-0.2 [facility] Comment on above: Performed By: #### 4 6413, 96372, 18152, 60835, 97377, 84626 ####[facility] EVEROLIMUS [address]zu EVEROLIMUS 4.1 ng/mL Normal [facility] Comment on above: Result Comment: Ther [...] developed and its performance characteristics determined by [facility]. It has not been cleared or approved by the US Food and Drug Administration. This test was performed in a CLIA certified laboratory and is intended for clinical purposes. Performed By: [facility] [address] [place] [address] Animal Ecologist: Young Lopez MD, PhD HEMOGLOBIN A1Con 09-28-2021 Glucose [Moles/Vol] 203 mmol/L Normal [facility] Comment on above: Performed By: #### 3 8082 #### [facility] [address] HbA1c (Bld) [Mass fraction] 8.7 % High 4.0-6.0 [facility] Comment on above: Performed By: #### 3 1752 #### [facility] [address] [place] [address], [facility] LIPID PROFILEon 09-28-2021 Cholesterol [Mass/Vol] 193 mg/dL Normal 120-200 [facility] Comment on above: Result Comment: CHOL ESTEROL REFERENCE RANGE: 20 YEARS AND OLDER CARDIOVASCULAR RISK Less than 200 mg/dl Low Risk 200 to 239 mg/dl Borderline Risk 240 mg/dl and greater High Risk Performed By: #### 4 6413, 48916, 59070, 35711, 30538, 52237 ####[facility] [facility] [place] [address], [facility] Cholesterol in HDL [Mass/Vol] 42 mg/dL Normal 23-92 [facility] Comment on above: Result Comment: Slig ht variation in normal range could be due to gender and/or age. HDL CHOLESTEROL REFERENCE RANGE: 20 years and older Cardiovascular Risk > or =60 mg/dL Desirable 40 TO 59 mg/dL Low Risk <40 mg/dL High Risk Performed By: #### 4 6413, 40754, 83151, 07396, 78903, 26398 ####[facility] [facility] [place] [address], [facility] Cholesterol in LDL [Mass/Vol] 113 mg/dL Normal 0-130 [facility] Comment on above: Result Comment: LDL IS A CALCULATION LDL IS ONLY VALID IF THE TRIG IS LESS THAN 400. Performed By: #### 4 6413, 92133, 40606, 11105, 52108, 81511 ####[facility] [facility] [place] [address], [place] Cholesterol.total/Ch olesterol in HDL [Mass ratio] 4.6 {ratio} High .0-4.5 [facility] Comment on above: Performed By: #### 4 6413, 94564, 31077, 13247, 38110, 08750 ####[facility] [place] [address], [place] NON-HDL CHOLESTEROL 151 mg/dL Normal [facility] Comment on above: Performed By: #### 4 6413, 96536, 57754, 80446, 95238, 60239 ####[facility] Triglyceride [Mass/Vol] 191 mg/dL High 40-149 [facility] Comment on above: Result Comment: TRIG LYCERIDE REFERENCE RANGE: 20 YEARS AND OLDER CARDIOVASCULAR RISK LESS THAN 150 mg/dl LOW RISK 150 TO 199 mg/dl BORDERLINE RISK 200 mg/dl AND GREATER HIGH RISK Performed By: #### 4 6413, 30449, 95426, 82063, 12353, 55809 ####[facility] VLDL CHOL 38 mg/dL Normal 0-40 [facility] Comment on above: Performed By: #### 4 6413, 97251, 89589, 62362, 45891, 30721 ####[facility] MAGNESIUM BLOODon 09-28-2021 Magnesium [Mass/Vol] 1.9 mg/dL Normal 1.9-2.7 [facility] Comment on above: Performed By: #### 4 6413, 20079, 36485, 67790, 10527, 63567 ####[facility] [facility].[address] PHOSPHORUS BLOODon 2 Phosphate [Mass/Vol] 2.9 mg/dL Normal 2.5-5.0 [facility] Comment on above: Performed By: #### 4 6413, 15367, 62532, 93732, 46845, 91895 ####[facility] [place] [address], [facility] PROSPERAon 09-28-2021 PROSPERA KIT Results to be mailed directly to physician's office by reference lab. Normal [facility] Comment on above: Result Comment: Test performed by [email or web address] [place] [id number] No result expected. For billing and tracking purposes only. Specimen collected for transplant patient [facility] instructions. No charge. Performed By: #### 3 1752 #### [facility] [address] RESULT Results to be mailed directly to physician's office by reference lab. Normal [facility] Comment on above: Performed By: #### 3 1752 #### [facility] [address] [facility]. [address] TACROLIMUSon 09-28-2021 Tacrolimus (Bld) [Mass/Vol] 3.1 ng/mL Low 5.0-20.0 [facility] Comment on above: Result Comment: The [employer] Tacrolimus assay is a delayed one-step immunoassay for the quantitative determination of tacrolimus in human whole blood using the chemiluminescent microparticle immunoassay (CMIA) technology with flexible assay protocols, referred to as Chemiflex. Performed By: #### [id number] #### [facility] [address] URIC ACID BLOODon 09-28-2021 Urate [Mass/Vol] 2.6 mg/dL Normal 2.3-6.6 [facility] Comment on above: Performed By: #### 4 [id number], [id number], [id number], [id number] ####[facility] Urinalysis - AUTOMATEDon Appearance (U) cloudy [employer] Other Bilirubin Ql (U) Negative [employer] Other Color (U) yellow [employer] Other Glucose Ql (U) Negative [employer] Other Hemoglobin Ql (U) moderate [employer] Other Ketones Ql (U) Negative [employer] Other Leukocyte esterase Test strip Ql (U) small [employer] Other Nitrite Ql (U) Negative [employer] Other pH (U) 5.5 [pH] [employer] Other Protein Ql (U) 100 [employer] Other Specific gravity (U) [Rel density] 1.010 [employer] Other Urobilinogen (U) [Mass/Vol] 0.2 mg/dL [employer] Other Urinalysis - AUTOMATED [employer] Other Urine Cultureon 09-09-2021 Bacteria identified Cx Nom (U) Reason for Exam Dysuria Urine ORGANISM: Escherichia coli (O:ESCCOL) [place] Count 75,000 Aerobic AIMEE Charge (NUC86) SUSCEPTIBILITY ORGANISM: O:ESCCOL ANTIBIOTIC INTERPRETATION AIMEE Amikacin S <16 Ampicillin S <8 Ampicillin/Sulbactam S <8/4 Aztreonam S <4 Cefazolin S <2 Cefepime S <2 Ceftazidime S <1 Ceftazidime/Avibactam S <8 Ceftriaxone S <1 Ciprofloxacin S <1 Ertapenem S <0.5 Gentamicin S <4 Levofloxacin S <2 Meropenem S <1 Nitrofurantoin S <32 Piperacillin/Tazobactam S <16 Tetracycline S <4 Tigecycline S <2 Tobramycin S <4 Trimethoprim/Sulfamethoxazo le S <2/38 S = SUSCEPTIBLE I = [...] RESISTANT TO ALL B-LACTAM DRUGS. PERFORMED BY: [facility] [address] [place] [address] PATHOLOGIST TABLE MAKER JEFE WHEAT M.D. Normal [facility] Comment on above: Performed By: #### C UU #### [address] Urine Culture 75,000 [employer] Other Urine Culture <16 Susceptible [employer] Other Urine Culture <8 Susceptible [employer] Other Urine Culture <4 Susceptible [employer] Other Urine Culture <2 Susceptible [employer] Other Urine Culture <1 Susceptible [employer] Other Urine Culture <0.5 Susceptible [employer] Other Urine Culture <32 Susceptible [employer] Other Urine Culture <2/38 Susceptible [employer] Other CBC W/DIFFon 08-21-2021 ABS IMM GRANS 0.0 10*3/uL Normal 0.0-0.2 [facility] Comment on above: Performed By: #### 5 0103 #### [facility] [address] ABS NEUTROPHILS 5.8 10*3/uL Normal 1.6-7.6 [facility] Comment on above: Performed By: #### 5 0103 #### [facility] [address] Basophils (Bld) [#/Vol] 0.1 10*3/uL Normal 0.0-0.2 [facility] Comment on above: Performed By: #### 5 0103 #### [facility] [address] [place] [address], [facility] Basophils/100 WBC (Bld) 0.5 % Normal 0.0-1.0 [facility] Comment on above: Performed By: #### 5 0103 #### [facility] [address] [place] [address], [facility] Eosinophils (Bld) [#/Vol] 0.2 10*3/uL Normal 0.0-0.5 [facility] Comment on above: Performed By: #### 5 0103 #### [facility] [address] [facility] [place] [address], [facility] Eosinophils/100 WBC (Bld) 1.6 % Normal 0.0-6.0 [facility] Comment on above: Performed By: #### 5 3 #### [facility] [address] Erythrocyte distribution width (RBC) [Ratio] 13.0 % Normal 11.5-15.0 [facility] Comment on above: Performed By: #### 5 0103 #### [facility] [address] Hematocrit (Bld) [Volume fraction] 41.6 % Normal 36.0-45.0 [facility] Comment on above: Performed By: #### 5 0103 #### [facility] [address] [place] [address], [facility] Hemoglobin (Bld) [Mass/Vol] 13.5 g/dL Normal 12.0-15.0 [facility] Comment on above: Performed By: #### 5 0103 #### [facility] [address] [place] [address], [facility] IMMATURE GRANS 0.3 % Normal 0.0-1.0 [facility] Comment on above: Performed By: #### 5 0103 #### [facility] [address] [facility] [place] [address], [facility] Lymphocytes (Bld) [#/Vol] 2.1 10*3/uL Normal 1.2-4.0 [facility] Comment on above: Performed By: #### 5 0103 #### [facility] [address] [place] [address], [facility] Lymphocytes/100 WBC (Bld) 22.8 % Normal 20.0-45.0 [facility] Comment on above: Performed By: #### 5 3 #### [facility] [address] [place] [address], [facility] MCH (RBC) [Entitic mass] 28.5 pg Normal 27.0-33.0 [facility] Comment on above: Performed By: #### 5 3 #### [facility] [address] MCHC (RBC) [Mass/Vol] 32.5 g/dL Normal 32.0-35.0 [facility] Comment on above: Performed By: #### 3 #### [facility] [address] [place] [address], [facility] MCV (RBC) [Entitic vol] 87.9 fL Normal 82.0-98.0 [facility] Comment on above: Performed By: #### 5 3 #### [facility] [address] [place] [address], [facility] Monocytes (Bld) [#/Vol] 1.2 10*3/uL High 0.1-1.0 [facility] Comment on above: Performed By: #### 5 3 #### [facility] [address] [place] [address], [facility] MONOS 12.5 % High 5.0-12.0 [facility] Comment on above: Performed By: #### 5 3 #### [facility] [address] [place] [address], [facility] Neutrophils/100 WBC (Bld) 62.3 % Normal 40.0-72.0 [facility] Comment on above: Performed By: #### 5 0103 #### [facility] [address] [facility] [place] [address], [facility] Nucleated RBC/100 WBC (Bld) [Ratio] 0 % Normal 0-0 [facility] Comment on above: Performed By: #### 5 0103 #### [facility] [address] [facility] [place] [address], [facility] PLAT CNT 183 10*3/uL Normal 150-400 [facility] Comment on above: Performed By: #### 5 0103 #### [facility] [address] [facility] [place] [address], [facility] RBC (Bld) [#/Vol] 4.73 10*6/uL Normal 3.80-5.00 [facility] Comment on above: Performed By: #### 5 0103 #### [facility] [address] [facility] [place] [address], [facility] WBC (Bld) [#/Vol] 9.31 10*3/uL Normal 4.00-10.60 [facility] Comment on above: Performed By: #### 5 3 #### [facility] [address] [facility]. [address] COMP METABOLIC PANELon 08-21 Albumin [Mass/Vol] 3.9 g/dL Normal 3.5-5.7 [facility] Comment on above: Performed By: #### 5 3 #### [facility] [address] [facility] [place] [address], [facility] ALKALINE PHOSPH 52 IU/L Normal 34-104 [facility] Comment on above: Performed By: #### 5 3 #### [facility] [address] [facility]. [address] ALT [Catalytic activity/Vol] 19 U/L Normal 7-52 [facility] Comment on above: Performed By: #### 5 0103 #### [facility] [address] [place] [address], [facility] AST [Catalytic activity/Vol] 20 U/L Normal 13-39 [facility] Comment on above: Performed By: #### 5 0103 #### [facility] [address] [place] [address], [facility] Bilirubin [Mass/Vol] 0.7 mg/dL Normal 0.3-1.0 [facility] Comment on above: Performed By: #### 5 0103 #### [facility] [address] [place] [address], [facility] Calcium [Mass/Vol] 9.6 mg/dL Normal 8.6-10.3 [facility] Comment on above: Performed By: #### 5 0103 #### [facility] [address] [place] [address], [facility] Chloride [Moles/Vol] 105 mmol/L Normal 98-107 [facility] Comment on above: Performed By: #### 5 0103 #### [facility] [address] [place] [address], [facility] CO2 [Moles/Vol] 26 mmol/L Normal 21-31 [facility] Comment on above: Performed By: #### 5 0103 #### [facility] [address] [place] [address], [facility] Creatinine [Mass/Vol] 2.04 mg/dL High 0.60-1.20 [facility] Comment on above: Performed By: #### 5 0103 #### [facility] [address] [place] [address], [facility] eGFR- 30 ml/min/1.73sq m Abnormal >60 [facility] Comment on above: Performed By: #### 5 3 #### [facility] [address] [place] [address], [facility] eGFR- non- 25 ml/min/1.73sq m Abnormal >60 [facility] Comment on above: Performed By: #### 5 0103 #### [facility] [address] [place] [address], [facility] Glucose [Mass/Vol] 156 mg/dL High 70-100 [facility] Comment on above: Performed By: #### 5 0103 #### [facility] [address] [place] [address], [facility] Potassium [Moles/Vol] 4.0 mmol/L Normal 3.5-5.1 [facility] Comment on above: Performed By: #### 5 0103 #### [facility] [address] [place] [address], [facility] Protein [Mass/Vol] 6.7 g/dL Normal 6.0-8.3 [facility] Comment on above: Performed By: #### 5 0103 #### [facility] [address] [place] [address], [facility] Sodium [Moles/Vol] 139 mmol/L Normal 136-145 [facility] Comment on above: Performed By: #### 5 0103 #### [facility] [address] [place] [address], [facility] Urea nitrogen [Mass/Vol] 38 mg/dL High 7-25 [facility] Comment on above: Performed By: #### 5 0103 #### [facility] [address] [place] [address], [facility] DIRECT BILIon 08-21-2021 Bilirubin.direct [Mass/Vol] 0.1 mg/dL Normal 0.0-0.2 [facility] Comment on above: Performed By: #### 5 0103 #### [facility] [address] [place] [address], [place] EVEROLIMUS [id number] 2 EVEROLIMUS 3.4 ng/mL Normal [facility] Comment on above: Result Comment: Ther [...] developed and its performance characteristics determined by [facility]. It has not been cleared or approved by the US Food and Drug Administration. This test was performed in a CLIA certified laboratory and is intended for clinical purposes. Performed By: [facility] [address] [place] [id number] Animal Ecologist: Young Lopez MD, PhD LIPID PROFILEon 08-21-2021 Cholesterol [Mass/Vol] 238 mg/dL High 120-200 [facility] Comment on above: Result Comment: CHOL ESTEROL REFERENCE RANGE: 20 YEARS AND OLDER CARDIOVASCULAR RISK Less than 200 mg/dl Low Risk 200 to 239 mg/dl Borderline Risk 240 mg/dl and greater High Risk Performed By: #### 5 0103 #### [facility] [address] Cholesterol in HDL [Mass/Vol] 56 mg/dL Normal 23-92 [facility] Comment on above: Result Comment: Slig ht variation in normal range could be due to gender and/or age. HDL CHOLESTEROL REFERENCE RANGE: 20 years and older Cardiovascular Risk > or =60 mg/dL Desirable 40 TO 59 mg/dL Low Risk <40 mg/dL High Risk Performed By: #### 5 0103 #### [facility] [address] [place] [address], [facility] Cholesterol in LDL [Mass/Vol] 133 mg/dL High 0-130 [facility] Comment on above: Result Comment: LDL IS A CALCULATION LDL IS ONLY VALID IF THE TRIG IS LESS THAN 400. Performed By: #### 5 0103 #### [facility] [address] [place] [address], [facility] Cholesterol.total/Ch olesterol in HDL [Mass ratio] 4.3 {ratio} Normal .0-4.5 [facility] Comment on above: Performed By: #### 5 0103 #### [facility] [address] [place] [address], [facility] NON-HDL CHOLESTEROL 182 mg/dL Normal [facility] Comment on above: Performed By: #### 5 0103 #### [facility] [address] [facility] [address], [facility] Triglyceride [Mass/Vol] 243 mg/dL High 40-149 [facility] Comment on above: Result Comment: TRIG LYCERIDE REFERENCE RANGE: 20 YEARS AND OLDER CARDIOVASCULAR RISK LESS THAN 150 mg/dl LOW RISK 150 TO 199 mg/dl BORDERLINE RISK 200 mg/dl AND GREATER HIGH RISK Performed By: #### 5 0103 #### [facility] [address] [facility] [address], [facility] VLDL CHOL 49 mg/dL High 0-40 [facility] Comment on above: Performed By: #### 5 0103 #### [facility] [address] [place] [address], [facility] MAGNESIUM BLOODon 08-21-2021 Magnesium [Mass/Vol] 2.0 mg/dL Normal 1.9-2.7 [facility] Comment on above: Performed By: #### 5 0103 #### [facility] [address] [place] [address], [facility] PHOSPHORUS BLOODon Phosphate [Mass/Vol] 2.8 mg/dL Normal 2.5-5.0 [facility] Comment on above: Performed By: #### 5 0103 #### [facility] [address] [facility] [address] PROSPERAon 08-21-2021 PROSPERA KIT Results to be mailed directly to physician's office by reference lab. Normal [facility] Comment on above: Result Comment: Test performed by [id number] [place] [address] No result expected. For billing and tracking purposes only. Specimen collected for transplant patient and sent to [facility] per Dr instructions. No charge. Performed By: #### 3 1756 #### [facility] [address] [facility]. [address] RESULT Results to be mailed directly to physician's office by reference lab. Normal [facility] Comment on above: Performed By: #### 3 1756 #### [facility] [address] [facility] [address] TACROLIMUSon 08-21-2021 Tacrolimus (Bld) [Mass/Vol] 3.5 ng/mL Low 5.0-20.0 [facility] Comment on above: Result Comment: The BOWMAN STABLE MANAGER Tacrolimus assay is a delayed one-step immunoassay for the quantitative determination of tacrolimus in human whole blood using the chemiluminescent microparticle immunoassay (CMIA) technology with flexible assay protocols, referred to as Chemiflex. Performed By: #### 9 9914 ####[facility]3000 [facility] URIC ACID BLOODon 08-21-2021 Urate [Mass/Vol] 2.9 mg/dL Normal 2.3-6.6 [facility] Comment on above: Performed By: #### 5 0103 #### [facility] [address] BK VIRUS QUANTITATION FOR PL ASMAon 07-03-2021 BKV Plasma Quantitation by PCR Not detected Normal [facility] Comment on above: Result Comment: Meth od: BK virus was measured by quantitative polymerase chain reaction using a fluorescent hydrolysis probe targeting the polyomavirus BK MANGLE ROLL OPERATOR-1 gene. The lower limit of quantitation of the assay is 500 copies of BK genome per milliliter of plasma or urine, and any detectable BK DNA below that level is reported as: Detected, <500 copies/ml. Serial BK virus measurement can be used to monitor disease activity. (Reference: George reyl. J CLIN MICRO 2004; 42:5268-8309). This test was developed and its performance characteristics determined by the [facility]. It has not been approved by the US Food and Drug Administration. However, such approval is not required for clinical implementation, and test results have been shown to be clinically useful. This laboratory is CAP accredited and CLIA certified to perform high complexity testing. Performed By: #### 5 0103 #### [facility] [address] BKV Plasma Quantitation Log by PCR Not detected Normal [facility] Comment on above: Performed By: #### 5 0103 #### [facility] [address] CBC W/DIFFon 07-03-2021 ABS IMM GRANS 0.1 10*3/uL Normal 0.0-0.2 [facility] Comment on above: Performed By: #### 5 0103 #### [facility] [address] ABS NEUTROPHILS 4.9 10*3/uL Normal 1.6-7.6 [facility] Comment on above: Performed By: #### 5 0103 #### [facility] [address] Basophils (Bld) [#/Vol] 0.1 10*3/uL Normal 0.0-0.2 [facility] Comment on above: Performed By: #### 5 0103 #### [facility] [address] [place] [address], [facility] Basophils/100 WBC (Bld) 0.6 % Normal 0.0-1.0 [facility] Comment on above: Performed By: #### 5 0103 #### [facility] [address] [facility] [place] [address], [facility] Eosinophils (Bld) [#/Vol] 0.2 10*3/uL Normal 0.0-0.5 [facility] Comment on above: Performed By: #### 5 0103 #### [facility] [address] [facility] [place] [address], [facility] Eosinophils/100 WBC (Bld) 1.9 % Normal 0.0-6.0 [facility] Comment on above: Performed By: #### 5 0103 #### [facility] [address] [facility] [address] Erythrocyte distribution width (RBC) [Ratio] 13.2 % Normal 11.5-15.0 [facility] Comment on above: Performed By: #### 5 0103 #### [facility] [address] Hematocrit (Bld) [Volume fraction] 40.8 % Normal 36.0-45.0 [facility] Comment on above: Performed By: #### 5 0103 #### [facility] [address] [facility]. [address] Hemoglobin (Bld) [Mass/Vol] 13.3 g/dL Normal 12.0-15.0 [facility] Comment on above: Performed By: #### 5 0103 #### [facility] [address] [place] [address], [facility] IMMATURE GRANS 0.6 % Normal 0.0-1.0 [facility] Comment on above: Performed By: #### 5 0103 #### [facility] [address] Lymphocytes (Bld) [#/Vol] 2.2 10*3/uL Normal 1.2-4.0 [facility] Comment on above: Performed By: #### 5 0103 #### [facility] [address] Lymphocytes/100 WBC (Bld) 26.5 % Normal 20.0-45.0 [facility] Comment on above: Performed By: #### 3 #### [facility] [address] MCH (RBC) [Entitic mass] 28.5 pg Normal 27.0-33.0 [facility] Comment on above: Performed By: #### 102 #### [facility] [address] MCHC (RBC) [Mass/Vol] 32.6 g/dL Normal 32.0-35.0 [facility] Comment on above: Performed By: #### 102 #### [facility] [address] MCV (RBC) [Entitic vol] 87.4 fL Normal 82.0-98.0 [facility] Comment on above: Performed By: #### 5 3 #### [facility] [address] [place] [address], [facility] Monocytes (Bld) [#/Vol] 1.1 10*3/uL High 0.1-1.0 [facility] Comment on above: Performed By: #### 5 3 #### [facility] [address] MONOS 12.4 % High 5.0-12.0 [facility] Comment on above: Performed By: #### 5 3 #### [facility] [address] [place] [address], [place] Neutrophils/100 WBC (Bld) 58.0 % Normal 40.0-72.0 [facility] Comment on above: Performed By: #### 5 0103 #### [facility] [address] Nucleated RBC/100 WBC (Bld) [Ratio] 0 % Normal 0-0 [facility] Comment on above: Performed By: #### 5 0103 #### [facility] [address] PLAT CNT 186 10*3/uL Normal 150-400 [facility] Comment on above: Performed By: #### 5 0103 #### [facility] [address] RBC (Bld) [#/Vol] 4.67 10*6/uL Normal 3.80-5.00 [facility] Comment on above: Performed By: #### 5 0103 #### [facility] [address] WBC (Bld) [#/Vol] 8.44 10*3/uL Normal 4.00-10.60 [facility] Comment on above: Performed By: #### 5 3 #### [facility] [address] COMP METABOLIC PANELon 07-03 Albumin [Mass/Vol] 4.0 g/dL Normal 3.5-5.7 [facility] Comment on above: Performed By: #### 1 0070, 06432, 17123, 62600, 95156, 76770 ####[facility] ALKALINE PHOSPH 56 IU/L Normal 34-104 [facility] Comment on above: Performed By: #### 1 0070, 66119, 14511, 46558, 30957, 46727 ####[facility] [place] [address], [place] ALT [Catalytic activity/Vol] 20 U/L Normal 7-52 [facility] Comment on above: Performed By: #### 1 0070, 89172, 29091, 82315, 55259, 43047 ####[facility] [place] [address], [place] AST [Catalytic activity/Vol] 19 U/L Normal 13-39 [facility] Comment on above: Performed By: #### 1 0070, 76900, 85158, 78375, 46307, 11020 ####[facility] [place] [address], [place] Bilirubin [Mass/Vol] 0.7 mg/dL Normal 0.3-1.0 [facility] Comment on above: Performed By: #### 1 0070, 53405, 92834, 08029, 85596, 34671 ####[facility] [place] [address], [place] Calcium [Mass/Vol] 10.1 mg/dL Normal 8.6-10.3 [facility] Comment on above: Performed By: #### 1 0070, 14732, 48407, 29537, 44658, 59134 ####[facility] [place] [address], [place] Chloride [Moles/Vol] 107 mmol/L Normal 98-107 [facility] Comment on above: Performed By: #### 1 0070, 48145, 21880, 83982, 42566, 25936 ####[facility] [place] [address], [place] CO2 [Moles/Vol] 26 mmol/L Normal 21-31 [facility] Comment on above: Performed By: #### 1 0070, 50627, 26788, 14917, 68905, 66332 ####[facility] [place] [address], [facility] Creatinine [Mass/Vol] 1.97 mg/dL High 0.60-1.20 [facility] Comment on above: Performed By: #### 1 0070, 95428, 21600, 44462, 63686, 24092 ####[facility] [place] [address], [facility] eGFR- 31 ml/min/1.73sq m Abnormal >60 [facility] Comment on above: Performed By: #### 1 0070, 05881, 77656, 51513, 32867, 31521 ####[facility] [place] [address], [facility] eGFR- non- 26 ml/min/1.73sq m Abnormal >60 [facility] Comment on above: Performed By: #### 1 0070, 08040, 29496, 90252, 54500, 47867 ####[facility] [place] [address], [facility] Glucose [Mass/Vol] 112 mg/dL High 70-100 [facility] Comment on above: Performed By: #### 1 0070, 59553, 63457, 45644, 61654, 46568 ####[facility] [address], [facility] Potassium [Moles/Vol] 3.6 mmol/L Normal 3.5-5.1 [facility] Comment on above: Performed By: #### 1 0070, 09054, 31719, 63753, 82612, 30503 ####[facility] [place] [address], [facility] Protein [Mass/Vol] 6.5 g/dL Normal 6.0-8.3 [facility] Comment on above: Performed By: #### 1 0070, 45154, 70091, 80647, 73825, 21745 ####[facility] Sodium [Moles/Vol] 142 mmol/L Normal 136-145 [facility] Comment on above: Performed By: #### 1 0070, 30518, 99030, 70186, 56005, 40573 ####[facility] Urea nitrogen [Mass/Vol] 36 mg/dL High 7-25 [facility] Comment on above: Performed By: #### 1 0070, 82732, 50969, 59975, 34640, 48751 ####[facility] DIRECT BILIon 07-03-2021 Bilirubin.direct [Mass/Vol] 0.1 mg/dL Normal 0.0-0.2 [facility] Comment on above: Performed By: #### 1 0070, 05581, 75063, 41917, 44350, 32170 ####[facility] EVEROLIMUS 44766zt 2 EVEROLIMUS 4.3 ng/mL Normal [facility] Comment on above: Result Comment: Ther [...] developed and its performance characteristics determined by [facility]. It has not been cleared or approved by the US Food and Drug Administration. This test was performed in a CLIA certified laboratory and is intended for clinical purposes. Performed By: [facility] [address] [place] [id number] Animal Ecologist: Krystal Vázquez MD LIPID PROFILEon 07-03-2021 Cholesterol [Mass/Vol] 215 mg/dL High 120-200 [facility] Comment on above: Result Comment: CHOL ESTEROL REFERENCE RANGE: 20 YEARS AND OLDER CARDIOVASCULAR RISK Less than 200 mg/dl Low Risk 200 to 239 mg/dl Borderline Risk 240 mg/dl and greater High Risk Performed By: #### 5 0103 #### [facility] [address] [place] [address], [place] Cholesterol in HDL [Mass/Vol] 57 mg/dL Normal 23-92 [facility] Comment on above: Result Comment: Slig ht variation in normal range could be due to gender and/or age. HDL CHOLESTEROL REFERENCE RANGE: 20 years and older Cardiovascular Risk > or =60 mg/dL Desirable 40 TO 59 mg/dL Low Risk <40 mg/dL High Risk Performed By: #### 5 0103 #### [facility] [address] [place] [address], [place] Cholesterol in LDL [Mass/Vol] 115 mg/dL Normal 0-130 [facility] Comment on above: Result Comment: LDL IS A CALCULATION LDL IS ONLY VALID IF THE TRIG IS LESS THAN 400. Performed By: #### 5 0103 #### [facility] [address] [place] [address], [place] Cholesterol.total/Ch olesterol in HDL [Mass ratio] 3.8 {ratio} Normal .0-4.5 [facility] Comment on above: Performed By: #### 5 0103 #### [facility] [address] [place] [address], [place] NON-HDL CHOLESTEROL 158 mg/dL Normal [facility] Comment on above: Performed By: #### 5 0103 #### [facility] [address] [place] [address], [facility] Triglyceride [Mass/Vol] 216 mg/dL High 40-149 [facility] Comment on above: Result Comment: TRIG LYCERIDE REFERENCE RANGE: 20 YEARS AND OLDER CARDIOVASCULAR RISK LESS THAN 150 mg/dl LOW RISK 150 TO 199 mg/dl BORDERLINE RISK 200 mg/dl AND GREATER HIGH RISK Performed By: #### 5 0103 #### [facility] [address] [place] [address], [facility] VLDL CHOL 43 mg/dL High 0-40 [facility] Comment on above: Performed By: #### 5 0103 #### [facility] [address] [place] [address], [facility] MAGNESIUM BLOODon 07-03-2021 Magnesium [Mass/Vol] 1.8 mg/dL Low 1.9-2.7 [facility] Comment on above: Performed By: #### 1 0070, 59063, 35083, 79224, 07862, 53483 ####[facility] [facility] [place] [address], [facility] PHOSPHORUS BLOODon Phosphate [Mass/Vol] 2.9 mg/dL Normal 2.5-5.0 [facility] Comment on above: Performed By: #### 1 0070, 40488, 36243, 60221, 68556, 01968 ####[facility] [place] [address], [facility] PROSPERAon 07-03-2021 PROSPERA KIT Results to be mailed directly to physician's office by reference lab. Normal [facility] Comment on above: Result Comment: Test performed by [email or web address] [place] [address] No result expected. For billing and tracking purposes only. Specimen collected for transplant patient and sent to [facility] per Dr instructions. No charge. Performed By: #### 3 1756 #### [facility] [address] RESULT Results to be mailed directly to physician's office by reference lab. Normal [facility] Comment on above: Performed By: #### 3 1756 #### [facility] [address] [facility]. [address] TACROLIMUSon 07-03-2021 Tacrolimus (Bld) [Mass/Vol] 2.8 ng/mL Low 5.0-20.0 [facility] Comment on above: Result Comment: The [employer] STABLE MANAGER Tacrolimus assay is a delayed one-step immunoassay for the quantitative determination of tacrolimus in human whole blood using the chemiluminescent microparticle immunoassay (CMIA) technology with flexible assay protocols, referred to as Chemiflex. Performed By: #### 5 0103 #### [facility] [address] TESTOSTERONE, BIO+FREE+SHBG+ TOTAL ILon 07-03-2021 [place] Normal [facility] Comment on above: Result Comment: Test Performed by The Grounds Keeper [address] [place] [address] - Released 07/03/2021 11:07 SEX HORM BIND GLOB 39 nmol/L Normal 30-135 [facility] Testosterone [Mass/Vol] 25 ng/dL Normal 20-70 [facility] TESTOSTERONE, BIO 9.5 ng/dL High 1.5-9.4 [facility] Comment on above: Result Comment: Post -menopausal range: 1.5-9.4 The concentration of bioavailable testosterone is derived from a mathematical expression based on the constant for the binding of testosterone to albumin and/or sex hormone binding globulin. TESTOSTERONE, FREE 4.0 pg/mL High 0.6-3.8 [facility] Comment on above: Result Comment: Post -menopausal range: 0.6-3.8 The concentration of free testosterone is derived from a mathematical expression based on the constant for the binding of testosterone to albumin and/or sex hormone binding globulin. URIC ACID BLOODon 07-03-2021 Urate [Mass/Vol] 2.8 mg/dL Normal 2.3-6.6 [facility] Comment on above: Performed By: #### 1 0070, 08806, 93402, 22264, 35851, 89079 ####[facility] [place] [address], [facility] CBC W/DIFFon 05-23-2021 ABS IMM GRANS 0.1 10*3/uL Normal 0.0-0.2 [facility] Comment on above: Performed By: #### 5 0103 #### [facility] [address] [place] [address], [facility] ABS NEUTROPHILS 7.2 10*3/uL Normal 1.6-7.6 [facility] Comment on above: Performed By: #### 5 0103 #### [facility] [address] [place] [address], [facility] Basophils (Bld) [#/Vol] 0.0 10*3/uL Normal 0.0-0.2 [facility] Comment on above: Performed By: #### 5 0103 #### [facility] [address] [place] [address], [facility] Basophils/100 WBC (Bld) 0.3 % Normal 0.0-1.0 [facility] Comment on above: Performed By: #### 5 0103 #### [facility] [address] [place] [address], [facility] Eosinophils (Bld) [#/Vol] 0.1 10*3/uL Normal 0.0-0.5 [facility] Comment on above: Performed By: #### 5 0103 #### [facility] [address] [facility] [place] [address], [facility] Eosinophils/100 WBC (Bld) 1.3 % Normal 0.0-6.0 [facility] Comment on above: Performed By: #### 5 0103 #### [facility] [address] [facility] [address] Erythrocyte distribution width (RBC) [Ratio] 12.8 % Normal 11.5-15.0 [facility] Comment on above: Performed By: #### 3 #### [facility] [address] [facility]. [address] Hematocrit (Bld) [Volume fraction] 39.6 % Normal 36.0-45.0 [facility] Comment on above: Performed By: #### 3 #### [facility] [address] Hemoglobin (Bld) [Mass/Vol] 13.2 g/dL Normal 12.0-15.0 [facility] Comment on above: Performed By: #### 102 #### [facility] [address] IMMATURE GRANS 0.9 % Normal 0.0-1.0 [facility] Comment on above: Performed By: #### 3 #### [facility] [address] Lymphocytes (Bld) [#/Vol] 1.9 10*3/uL Normal 1.2-4.0 [facility] Comment on above: Performed By: #### 5 3 #### [facility] [address] Lymphocytes/100 WBC (Bld) 17.5 % Low 20.0-45.0 [facility] Comment on above: Performed By: #### 3 #### [facility] [address] MCH (RBC) [Entitic mass] 27.9 pg Normal 27.0-33.0 [facility] Comment on above: Performed By: #### 5 0103 #### [facility] [address] MCHC (RBC) [Mass/Vol] 33.3 g/dL Normal 32.0-35.0 [facility] Comment on above: Performed By: #### 5 3 #### [facility] [address] [facility] [place] [address], [facility] MCV (RBC) [Entitic vol] 83.7 fL Normal 82.0-98.0 [facility] Comment on above: Performed By: #### 102 #### [facility] [address] [facility] [place] [address], [facility] Monocytes (Bld) [#/Vol] 1.2 10*3/uL High 0.1-1.0 [facility] Comment on above: Performed By: #### 102 #### [facility] [address] [facility]. [address] MONOS 11.5 % Normal 5.0-12.0 [facility] Comment on above: Performed By: #### 3 #### [facility] [address] [facility] [place] [address], [facility] Neutrophils/100 WBC (Bld) 68.5 % Normal 40.0-72.0 [facility] Comment on above: Performed By: #### 3 #### [facility] [address] [facility] [place] [address], [facility] Nucleated RBC/100 WBC (Bld) [Ratio] 0 % Normal 0-0 [facility] Comment on above: Performed By: #### 3 #### [facility] [address] [facility] [place] [address], [facility] PLAT CNT 237 10*3/uL Normal 150-400 [facility] Comment on above: Performed By: #### 102 #### [facility] [address] [facility] [address], [facility] RBC (Bld) [#/Vol] 4.73 10*6/uL Normal 3.80-5.00 [facility] Comment on above: Performed By: #### 5 0103 #### [facility] [address] [place] [address], [facility] WBC (Bld) [#/Vol] 10.56 10*3/uL Normal 4.00-10.60 [facility] Comment on above: Performed By: #### 5 0103 #### [facility] [address] [place] [address], [facility] COMP METABOLIC PANELon 05-23 Albumin [Mass/Vol] 3.7 g/dL Normal 3.5-5.7 [facility] Comment on above: Performed By: #### 1 0070, 46728, 36100, 17419, 37556, 03838 ####[facility] [place] [address], [facility] ALKALINE PHOSPH 55 IU/L Normal 34-104 [facility] Comment on above: Performed By: #### 1 0070, 06823, 64424, 40268, 47163, 01536 ####[facility] [place] [address], [facility] ALT [Catalytic activity/Vol] 19 U/L Normal 7-52 [facility] Comment on above: Performed By: #### 1 0070, 88390, 35917, 56125, 06333, 12194 ####[facility] [place] [address], [facility] AST [Catalytic activity/Vol] 19 U/L Normal 13-39 [facility] Comment on above: Performed By: #### 1 0070, 58715, 73531, 10545, 94316, 83447 ####[facility] [address], [facility] Bilirubin [Mass/Vol] 0.7 mg/dL Normal 0.3-1.0 [facility] Comment on above: Performed By: #### 1 0070, 47392, 60407, 45415, 41607, 60237 ####[facility] [place] [address], [facility] Calcium [Mass/Vol] 9.8 mg/dL Normal 8.6-10.3 [facility] Comment on above: Performed By: #### 1 0070, 30077, 51907, 21577, 19728, 05530 ####[facility] [place] [address], [place] Chloride [Moles/Vol] 103 mmol/L Normal 98-107 [facility] Comment on above: Performed By: #### 1 0070, 62680, 51096, 44114, 88250, 72661 ####[facility] [place] [address], [facility] CO2 [Moles/Vol] 26 mmol/L Normal 21-31 [facility] Comment on above: Performed By: #### 1 0070, 41087, 56067, 98055, 69874, 48034 ####[facility] [address], [facility] Creatinine [Mass/Vol] 2.12 mg/dL High 0.60-1.20 [facility] Comment on above: Performed By: #### 1 0070, 20220, 24562, 01214, 71006, 68278 ####[facility] [place] [address], [facility] eGFR- 29 ml/min/1.73sq m Abnormal >60 [facility] Comment on above: Performed By: #### 1 0070, 41411, 25915, 12469, 14425, 56927 ####[facility] [place] [address], [facility] eGFR- non- 24 ml/min/1.73sq m Abnormal >60 [facility] Comment on above: Performed By: #### 1 0070, 05743, 13937, 31259, 20409, 32053 ####[facility] [place] [address], [place] Glucose [Mass/Vol] 134 mg/dL High 70-100 [facility] Comment on above: Performed By: #### 1 0070, 65238, 95984, 29788, 84752, 21126 ####[facility] [place] [address], [place] Potassium [Moles/Vol] 3.8 mmol/L Normal 3.5-5.1 [facility] Comment on above: Performed By: #### 1 0070, 62264, 92694, 39910, 92890, 27291 ####[facility] [place] [address], [place] Protein [Mass/Vol] 6.3 g/dL Normal 6.0-8.3 [facility] Comment on above: Performed By: #### 1 0070, 03455, 76067, 25294, 13262, 89129 ####[facility] [place] [address], [place] Sodium [Moles/Vol] 139 mmol/L Normal 136-145 [facility] Comment on above: Performed By: #### 1 0070, 78577, 94366, 56192, 21590, 52620 ####[facility] [place] [address], [place] Urea nitrogen [Mass/Vol] 32 mg/dL High 7-25 [facility] Comment on above: Performed By: #### 1 0070, 32826, 85838, 93552, 16545, 57076 ####[facility] [place] [address], [place] DIRECT BILIon 05-23-2021 Bilirubin.direct [Mass/Vol] 0.1 mg/dL Normal 0.0-0.2 [facility] Comment on above: Performed By: #### 1 0070, 15038, 40445, 79217, 21396, 00167 ####[facility] EVEROLIMUS [address]33ry 2 EVEROLIMUS 3.4 ng/mL Normal [facility] Comment on above: Result Comment: Ther [...] developed and its performance characteristics determined by [facility]. It has not been cleared or approved by the US Food and Drug Administration. This test was performed in a CLIA certified laboratory and is intended for clinical purposes. Performed By: [facility] [address] [place] [address] Animal Ecologist: Krystal Vázquez MD LIPID PROFILEon 05-23-2021 Cholesterol [Mass/Vol] 179 mg/dL Normal 120-200 [facility] Comment on above: Result Comment: CHOL ESTEROL REFERENCE RANGE: 20 YEARS AND OLDER CARDIOVASCULAR RISK Less than 200 mg/dl Low Risk 200 to 239 mg/dl Borderline Risk 240 mg/dl and greater High Risk Performed By: #### 1 0070, 09673, 80240, 84043, 26409, 84570 ####[facility] [place] [address], [place] Cholesterol in HDL [Mass/Vol] 45 mg/dL Normal 23-92 [facility] Comment on above: Result Comment: Slig ht variation in normal range could be due to gender and/or age. HDL CHOLESTEROL REFERENCE RANGE: 20 years and older Cardiovascular Risk > or =60 mg/dL Desirable 40 TO 59 mg/dL Low Risk <40 mg/dL High Risk Performed By: #### 1 0070, 27492, 65112, 47489, 73389, 48059 ####[facility] [place] [address], [facility] Cholesterol in LDL [Mass/Vol] 76 mg/dL Normal 0-130 [facility] Comment on above: Result Comment: LDL IS A CALCULATION LDL IS ONLY VALID IF THE TRIG IS LESS THAN 400. Performed By: #### 1 0070, 49958, 15671, 82128, 45056, 80918 ####[facility] [place] [address], [facility] Cholesterol.total/Ch olesterol in HDL [Mass ratio] 4.0 {ratio} Normal .0-4.5 [facility] Comment on above: Performed By: #### 1 0070, 36806, 27980, 28277, 05038, 44770 ####[facility] [place] [address], [place] NON-HDL CHOLESTEROL 134 mg/dL Normal [facility] Comment on above: Performed By: #### 1 0070, 64682, 96985, 63158, 17886, 99720 ####[facility] [place] [address], [place] Triglyceride [Mass/Vol] 290 mg/dL High 40-149 [facility] Comment on above: Result Comment: TRIG LYCERIDE REFERENCE RANGE: 20 YEARS AND OLDER CARDIOVASCULAR RISK LESS THAN 150 mg/dl LOW RISK 150 TO 199 mg/dl BORDERLINE RISK 200 mg/dl AND GREATER HIGH RISK Performed By: #### 1 0070, 73087, 06955, 76832, 64037, 09489 ####[facility] [facility] [place] [address], [facility] VLDL CHOL 58 mg/dL High 0-40 [facility] Comment on above: Performed By: #### 1 0070, 04291, 59266, 98888, 04245, 11097 ####[facility] MAGNESIUM BLOODon 05-23-2021 Magnesium [Mass/Vol] 1.6 mg/dL Low 1.9-2.7 [facility] Comment on above: Performed By: #### 1 0070, 75691, 26738, 94511, 68170, 55229 ####[facility] [facility] [place] [address], [facility] PHOSPHORUS BLOODon Phosphate [Mass/Vol] 2.6 mg/dL Normal 2.5-5.0 [facility] Comment on above: Performed By: #### 1 0070, 47127, 60758, 85360, 85583, 08111 ####[facility] [facility].[address] PROSPERAon 05-23-2021 PROSPERA KIT Results to be mailed directly to physician's office by reference lab. Normal [facility] Comment on above: Performed By: #### 5 0103 #### [facility] [address] [facility] [place] [address], [facility] RESULT Normal [facility] Comment on above: Result Comment: Resu lts to be mailed directly to physician's office by reference lab. Performed By: #### 5 0103 #### [facility] [address] [place] [address], [facility] TACROLIMUSon 05-23-2021 Tacrolimus (Bld) [Mass/Vol] 2.2 ng/mL Low 5.0-20.0 [facility] Comment on above: Result Comment: The [employer] STABLE MANAGER Tacrolimus assay is a delayed one-step immunoassay for the quantitative determination of tacrolimus in human whole blood using the chemiluminescent microparticle immunoassay (CMIA) technology with flexible assay protocols, referred to as Chemiflex. Performed By: #### 9 9914 ####[facility] URIC ACID BLOODon 05-23-2021 Urate [Mass/Vol] 3.0 mg/dL Normal 2.3-6.6 [facility] Comment on above: Performed By: #### 1 0070, 90712, 38179, 33180, 78795, 77515 ####[facility] Urinalysis - AUTOMATEDon Appearance (U) cloudy [employer] Other Bilirubin Ql (U) Negative [employer] Other Color (U) yellow [employer] Other Glucose Ql (U) Negative [employer] Other Hemoglobin Ql (U) small [employer] Other Ketones Ql (U) Negative [employer] Other Leukocyte esterase Test strip Ql (U) moderate [employer] Other Nitrite Ql (U) Positive [employer] Other pH (U) 7.0 [pH] [employer] Other Protein Ql (U) 100 [employer] Other Specific gravity (U) [Rel density] 1.015 [employer] Other Urobilinogen (U) [Mass/Vol] 0.2 mg/dL [employer] Other Urinalysis - AUTOMATED [employer] Other Urine Cultureon 05-23-2021 Bacteria identified Cx Nom (U) ORGANISM: Klebsiella oxytoca (O:KLEOXY) [place] Count >100,000 Aerobic AIMEE Charge (NUC86) SUSCEPTIBILITY ORGANISM: O:KLEOXY ANTIBIOTIC INTERPRETATION AIMEE Amikacin S <16 Ampicillin R >16 Ampicillin/Sulbactam I 1616/8 Aztreonam S <4 Cefazolin R >16 Cefepime S <2 Ceftazidime S <1 Ceftazidime/Avibactam S <8 Ceftriaxone S <1 Ciprofloxacin S <1 Ertapenem S <0.5 Gentamicin S <4 Levofloxacin S <2 Meropenem S <1 Nitrofurantoin S <32 Piperacillin/Tazobactam S <16 Tetracycline S <4 Tigecycline S <2 Tobramycin S <4 Trimethoprim/Sulfamethoxazo le R >2/38 S = SUSCEPTIBLE I = INTERMEDIATE R [...] RESISTANT TO ALL B-LACTAM DRUGS. PERFORMED BY: [place] [address] PATHOLOGIST TABLE MAKER JEFE WHEAT M.D. Normal [facility] Comment on above: Performed By: #### C UU #### [address] BK VIRUS QUANTITATION FOR PL ASMAon 04-13-2021 BKV Plasma Quantitation by PCR Not detected Normal [facility] Comment on above: Result Comment: Meth od: BK virus was measured by quantitative polymerase chain reaction using a fluorescent hydrolysis probe targeting the polyomavirus BK MANGLE ROLL OPERATOR-1 gene. The lower limit of quantitation of the assay is 500 copies of BK genome per milliliter of plasma or urine, and any detectable BK DNA below that level is reported as: Detected, <500 copies/ml. Serial BK virus measurement can be used to monitor disease activity. (Reference: George hansen. J CLIN MICRO 2004; 42:0866-0821). This test was developed and its performance characteristics determined by the [facility]. It has not been approved by the US Food and Drug Administration. However, such approval is not required for clinical implementation, and test results have been shown to be clinically useful. This laboratory is CAP accredited and CLIA certified to perform high complexity testing. Performed By: #### 5 0103 #### [facility] [address] BKV Plasma Quantitation Log by PCR Not detected Normal [facility] Comment on above: Performed By: #### 5 0103 #### [facility] [address] CBC W/DIFFon 04-13-2021 ABS IMM GRANS 0.0 10*3/uL Normal 0.0-0.2 [facility] Comment on above: Performed By: #### 5 0103 #### [facility] [address] ABS NEUTROPHILS 5.7 10*3/uL Normal 1.6-7.6 [facility] Comment on above: Performed By: #### 5 0103 #### [facility] [address] Basophils (Bld) [#/Vol] 0.1 10*3/uL Normal 0.0-0.2 [facility] Comment on above: Performed By: #### 5 0103 #### [facility] [address] Basophils/100 WBC (Bld) 0.6 % Normal 0.0-1.0 [facility] Comment on above: Performed By: #### 5 0103 #### [facility] [address] Eosinophils (Bld) [#/Vol] 0.1 10*3/uL Normal 0.0-0.5 [facility] Comment on above: Performed By: #### 5 0103 #### [facility] [address] Eosinophils/100 WBC (Bld) 1.3 % Normal 0.0-6.0 [facility] Comment on above: Performed By: #### 3 #### [facility] [address] Erythrocyte distribution width (RBC) [Ratio] 13.7 % Normal 11.5-15.0 [facility] Comment on above: Performed By: #### 102 #### [facility] [address] Hematocrit (Bld) [Volume fraction] 42.8 % Normal 36.0-45.0 [facility] Comment on above: Performed By: #### 5 3 #### [facility] [address] Hemoglobin (Bld) [Mass/Vol] 13.5 g/dL Normal 12.0-15.0 [facility] Comment on above: Performed By: #### 5 3 #### [facility] [address] IMMATURE GRANS 0.4 % Normal 0.0-1.0 [facility] Comment on above: Performed By: #### 5 3 #### [facility] [address] Lymphocytes (Bld) [#/Vol] 2.5 10*3/uL Normal 1.2-4.0 [facility] Comment on above: Performed By: #### 5 3 #### [facility] [address] [place] [address], [facility] Lymphocytes/100 WBC (Bld) 27.0 % Normal 20.0-45.0 [facility] Comment on above: Performed By: #### 5 0103 #### [facility] [address] [place] [address], [facility] MCH (RBC) [Entitic mass] 27.6 pg Normal 27.0-33.0 [facility] Comment on above: Performed By: #### 5 0103 #### [facility] [address] [facility] [place] [address], [facility] MCHC (RBC) [Mass/Vol] 31.5 g/dL Low 32.0-35.0 [facility] Comment on above: Performed By: #### 5 0103 #### [facility] [address] [facility] [place] [address], [facility] MCV (RBC) [Entitic vol] 87.3 fL Normal 82.0-98.0 [facility] Comment on above: Performed By: #### 5 0103 #### [facility] [address] [facility] [place] [address], [facility] Monocytes (Bld) [#/Vol] 0.8 10*3/uL Normal 0.1-1.0 [facility] Comment on above: Performed By: #### 5 0103 #### [facility] [address] [facility] [place] [address], [facility] MONOS 9.0 % Normal 5.0-12.0 [facility] Comment on above: Performed By: #### 5 0103 #### [facility] [address] [facility] [place] [address], [facility] Neutrophils/100 WBC (Bld) 61.7 % Normal 40.0-72.0 [facility] Comment on above: Performed By: #### 5 0103 #### [facility] [address] Nucleated RBC/100 WBC (Bld) [Ratio] 0 % Normal 0-0 [facility] Comment on above: Performed By: #### 5 0103 #### [facility] [address] [place] [address], [facility] PLAT CNT 183 10*3/uL Normal 150-400 [facility] Comment on above: Performed By: #### 5 0103 #### [facility] [address] [facility] [place] [address], [facility] RBC (Bld) [#/Vol] 4.90 10*6/uL Normal 3.80-5.00 [facility] Comment on above: Performed By: #### 5 0103 #### [facility] [address] [facility] [place] [address], [facility] WBC (Bld) [#/Vol] 9.27 10*3/uL Normal 4.00-10.60 [facility] Comment on above: Performed By: #### 5 0103 #### [facility] [address] [facility]. [address] COMP METABOLIC PANELon 04-13 Albumin [Mass/Vol] 4.0 g/dL Normal 3.5-5.7 [facility] Comment on above: Performed By: #### 5 0103 #### [facility] [address] [facility] [place] [address], [facility] ALKALINE PHOSPH 52 IU/L Normal 34-104 [facility] Comment on above: Performed By: #### 5 3 #### [facility] [address] [facility]. [address] ALT [Catalytic activity/Vol] 19 U/L Normal 7-52 [facility] Comment on above: Performed By: #### 5 3 #### [facility] [address] [place] [address], [facility] AST [Catalytic activity/Vol] 23 U/L Normal 13-39 [facility] Comment on above: Performed By: #### 5 0103 #### [facility] [address] [place] [address], [facility] Bilirubin [Mass/Vol] 0.6 mg/dL Normal 0.3-1.0 [facility] Comment on above: Performed By: #### 5 0103 #### [facility] [address] [place] [address], [facility] Calcium [Mass/Vol] 9.7 mg/dL Normal 8.6-10.3 [facility] Comment on above: Performed By: #### 5 0103 #### [facility] [address] [place] [address], [facility] Chloride [Moles/Vol] 104 mmol/L Normal 98-107 [facility] Comment on above: Performed By: #### 5 0103 #### [facility] [address] [place] [address], [facility] CO2 [Moles/Vol] 27 mmol/L Normal 21-31 [facility] Comment on above: Performed By: #### 5 0103 #### [facility] [address] [place] [address], [facility] Creatinine [Mass/Vol] 1.77 mg/dL High 0.60-1.20 [facility] Comment on above: Performed By: #### 5 0103 #### [facility] [address] [place] [address], [facility] eGFR- 36 ml/min/1.73sq m Abnormal >60 [facility] Comment on above: Performed By: #### 5 3 #### [facility] [address] [place] [address], [facility] eGFR- non- 30 ml/min/1.73sq m Abnormal >60 [facility] Comment on above: Performed By: #### 5 3 #### [facility] [address] [place] [address], [facility] Glucose [Mass/Vol] 121 mg/dL High 70-100 [facility] Comment on above: Performed By: #### 5 0103 #### [facility] [address] [place] [address], [facility] Potassium [Moles/Vol] 3.3 mmol/L Low 3.5-5.1 [facility] Comment on above: Performed By: #### 5 0103 #### [facility] [address] [place] [address], [facility] Protein [Mass/Vol] 6.6 g/dL Normal 6.0-8.3 [facility] Comment on above: Performed By: #### 5 0103 #### [facility] [address] [place] [address], [facility] Sodium [Moles/Vol] 139 mmol/L Normal 136-145 [facility] Comment on above: Performed By: #### 5 0103 #### [facility] [address] [place] [address], [facility] Urea nitrogen [Mass/Vol] 34 mg/dL High 7-25 [facility] Comment on above: Performed By: #### 5 0103 #### [facility] [address] [place] [address], [facility] DIRECT BILIon 04-13-2021 Bilirubin.direct [Mass/Vol] 0.1 mg/dL Normal 0.0-0.2 [facility] Comment on above: Performed By: #### 5 0103 #### [facility] [address] [place] [address], [facility] EVEROLIMUS [id number] EVEROLIMUS 3.0 ng/mL Normal [facility] Comment on above: Result Comment: Ther [...] developed and its performance characteristics determined by [facility]. It has not been cleared or approved by the US Food and Drug Administration. This test was performed in a CLIA certified laboratory and is intended for clinical purposes. Performed By: [facility] [address] [place] [address] Animal Ecologist: Krystal Vázquez MD HEMOGLOBIN A1Con 04-13-2021 Glucose [Moles/Vol] 243 mmol/L Normal [facility] Comment on above: Performed By: #### 9 9914, 22298 ####[facility] HbA1c (Bld) [Mass fraction] 10.1 % High 4.0-6.0 [facility] Comment on above: Performed By: #### 9 9914, 43399 ####[facility] LIPID PROFILEon 04-13-2021 Cholesterol [Mass/Vol] 204 mg/dL High 120-200 [facility] Comment on above: Result Comment: CHOL ESTEROL REFERENCE RANGE: 20 YEARS AND OLDER CARDIOVASCULAR RISK Less than 200 mg/dl Low Risk 200 to 239 mg/dl Borderline Risk 240 mg/dl and greater High Risk Performed By: #### 5 0103 #### [facility] [address] Cholesterol in HDL [Mass/Vol] 48 mg/dL Normal 23-92 [facility] Comment on above: Result Comment: Slig ht variation in normal range could be due to gender and/or age. HDL CHOLESTEROL REFERENCE RANGE: 20 years and older Cardiovascular Risk > or =60 mg/dL Desirable 40 TO 59 mg/dL Low Risk <40 mg/dL High Risk Performed By: #### 5 0103 #### [facility] [address] [place] [address], [facility] Cholesterol in LDL [Mass/Vol] 106 mg/dL Normal 0-130 [facility] Comment on above: Result Comment: LDL IS A CALCULATION LDL IS ONLY VALID IF THE TRIG IS LESS THAN 400. Performed By: #### 5 0103 #### [facility] [address] [place] [address], [facility] Cholesterol.total/Ch olesterol in HDL [Mass ratio] 4.3 {ratio} Normal .0-4.5 [facility] Comment on above: Performed By: #### 5 0103 #### [facility] [address] [place] [address], [facility] NON-HDL CHOLESTEROL 156 mg/dL Normal [facility] Comment on above: Performed By: #### 5 0103 #### [facility] [address] [place] [address], [facility] Triglyceride [Mass/Vol] 249 mg/dL High 40-149 [facility] Comment on above: Result Comment: TRIG LYCERIDE REFERENCE RANGE: 20 YEARS AND OLDER CARDIOVASCULAR RISK LESS THAN 150 mg/dl LOW RISK 150 TO 199 mg/dl BORDERLINE RISK 200 mg/dl AND GREATER HIGH RISK Performed By: #### 5 0103 #### [facility] [address] [place] [address], [facility] VLDL CHOL 50 mg/dL High 0-40 [facility] Comment on above: Performed By: #### 5 0103 #### [facility] [address] MAGNESIUM BLOODon 04-13-2021 Magnesium [Mass/Vol] 1.9 mg/dL Normal 1.9-2.7 [facility] Comment on above: Performed By: #### 5 0103 #### [facility] [address] [place] [address], [facility] PHOSPHORUS BLOODon 2 Phosphate [Mass/Vol] 3.2 mg/dL Normal 2.5-5.0 [facility] Comment on above: Performed By: #### 5 0103 #### [facility] 3000 [facility] [address] PROSPERAon 04-13-2021 PROSPERA KIT Results to be mailed directly to physician's office by reference lab. Normal [facility] Comment on above: Result Comment: Test performed by [email or web address] [place] [address] No result expected. For billing and tracking purposes only. Specimen collected for transplant patient and sent to [facility] per Dr instructions. No charge. Performed By: #### 3 1756 #### [facility] [address] [facility]. [address] RESULT Results to be mailed directly to physician's office by reference lab. Normal [facility] Comment on above: Performed By: #### 3 1756 #### [facility] [address] [facility] [place] [address], [facility] TACROLIMUSon 04-13-2021 Tacrolimus (Bld) [Mass/Vol] 3.7 ng/mL Low 5.0-20.0 [facility] Comment on above: Result Comment: The [employer] Tacrolimus assay is a delayed one-step immunoassay for the quantitative determination of tacrolimus in human whole blood using the chemiluminescent microparticle immunoassay (CMIA) technology with flexible assay protocols, referred to as Chemiflex. Performed By: #### 9 9914, 99907 ####[facility] [facility] [place] [address], [facility] URIC ACID BLOODon 04-13-2021 Urate [Mass/Vol] 2.7 mg/dL Normal 2.3-6.6 [facility] Comment on above: Performed By: #### 5 0103 #### [facility] [address] [place] [address], [facility] COMP METABOLIC PANELon 03-01 Albumin [Mass/Vol] 3.9 g/dL Normal 3.5-5.7 [facility] Comment on above: Performed By: #### 1 0070, 50739, 38110, 75245, 52162, 10776 ####[facility] [place] [address], [facility] ALKALINE PHOSPH 59 IU/L Normal 34-104 [facility] Comment on above: Performed By: #### 1 0070, 66167, 26635, 35765, 26412, 30020 ####[facility] [place] [address], [facility] ALT [Catalytic activity/Vol] 21 U/L Normal 7-52 [facility] Comment on above: Performed By: #### 1 0070, 21631, 30981, 52689, 44164, 91169 ####[facility] [place] [address], [facility] AST [Catalytic activity/Vol] 22 U/L Normal 13-39 [facility] Comment on above: Performed By: #### 1 0070, 96037, 45171, 09468, 16991, 03980 ####[facility] [place] [address], [place] Bilirubin [Mass/Vol] 0.8 mg/dL Normal 0.3-1.0 [facility] Comment on above: Performed By: #### 1 0070, 68998, 20510, 02053, 77456, 52862 ####[facility] [address], [place] Calcium [Mass/Vol] 10.3 mg/dL Normal 8.6-10.3 [facility] Comment on above: Performed By: #### 1 0070, 61914, 79068, 24504, 55838, 46917 ####[facility] [place] [address], [place] Chloride [Moles/Vol] 105 mmol/L Normal 98-107 [facility] Comment on above: Performed By: #### 1 0070, 19374, 24561, 17921, 68600, 59600 ####[facility] [place] [address], [place] CO2 [Moles/Vol] 26 mmol/L Normal 21-31 [facility] Comment on above: Performed By: #### 1 0070, 36953, 20465, 95478, 28278, 99882 ####[facility] [place] [address], [place] Creatinine [Mass/Vol] 1.95 mg/dL High 0.60-1.20 [facility] Comment on above: Performed By: #### 1 0070, 78721, 27712, 51180, 61479, 79725 ####[facility] [place] [address], [place] eGFR- 32 ml/min/1.73sq m Abnormal >60 [facility] Comment on above: Performed By: #### 1 0070, 57770, 21864, 71897, 33384, 66909 ####[facility] [place] [address], [place] eGFR- non- 26 ml/min/1.73sq m Abnormal >60 [facility] Comment on above: Performed By: #### 1 0070, 33512, 93105, 64561, 35731, 19899 ####[facility] [place] [address], [place] Glucose [Mass/Vol] 127 mg/dL High 70-100 [facility] Comment on above: Performed By: #### 1 0070, 87975, 11138, 37737, 47630, 03255 ####[facility] [place] [address], [facility] Potassium [Moles/Vol] 3.7 mmol/L Normal 3.5-5.1 [facility] Comment on above: Performed By: #### 1 0070, 37855, 12532, 09173, 99545, 68601 ####[facility] [place] [address], [facility] Protein [Mass/Vol] 6.6 g/dL Normal 6.0-8.3 [facility] Comment on above: Performed By: #### 1 0070, 04107, 47437, 48947, 09036, 07536 ####[facility] [address], [facility] Sodium [Moles/Vol] 141 mmol/L Normal 136-145 [facility] Comment on above: Performed By: #### 1 0070, 96514, 73030, 34559, 86732, 26376 ####[facility] [place] [address], [facility] Urea nitrogen [Mass/Vol] 34 mg/dL High 7-25 [facility] Comment on above: Performed By: #### 1 0070, 69904, 06146, 67474, 50587, 76118 ####[facility] [place] [address], [facility] DIRECT BILIon 03-01-2021 Bilirubin.direct [Mass/Vol] 0.1 mg/dL Normal 0.0-0.2 [facility] Comment on above: Performed By: #### 1 0070, 80618, 63020, 39150, 21336, 57672 ####[facility] [place] [address], [facility] EVEROLIMUS [id number] EVEROLIMUS 3.5 ng/mL Normal [facility] Comment on above: Result Comment: Ther [...] developed and its performance characteristics determined by [facility]. It has not been cleared or approved by the US Food and Drug Administration. This test was performed in a CLIA certified laboratory and is intended for clinical purposes. Performed By: [facility] [address] [place] [address] Animal Ecologist: Krystal Vázquez MD LIPID PROFILEon 03-01-2021 Cholesterol [Mass/Vol] 230 mg/dL High 120-200 [facility] Comment on above: Result Comment: CHOL ESTEROL REFERENCE RANGE: 20 YEARS AND OLDER CARDIOVASCULAR RISK Less than 200 mg/dl Low Risk 200 to 239 mg/dl Borderline Risk 240 mg/dl and greater High Risk Performed By: #### 1 0070, 49169, 46028, 42489, 22833, 36139 ####[facility] [facility] [place] [address], [facility] Cholesterol in HDL [Mass/Vol] 47 mg/dL Normal 23-92 [facility] Comment on above: Result Comment: Slig ht variation in normal range could be due to gender and/or age. HDL CHOLESTEROL REFERENCE RANGE: 20 years and older Cardiovascular Risk > or =60 mg/dL Desirable 40 TO 59 mg/dL Low Risk <40 mg/dL High Risk Performed By: #### 1 0070, 30060, 20977, 41960, 76415, 67028 ####[facility] [place] [address], [facility] Cholesterol in LDL [Mass/Vol] 128 mg/dL Normal 0-130 [facility] Comment on above: Result Comment: LDL IS A CALCULATION LDL IS ONLY VALID IF THE TRIG IS LESS THAN 400. Performed By: #### 1 0070, 06312, 44738, 70506, 34278, 84049 ####[facility] [facility] [place] [address], [facility] Cholesterol.total/Ch olesterol in HDL [Mass ratio] 4.9 {ratio} High .0-4.5 [facility] Comment on above: Performed By: #### 1 0070, 64235, 28594, 09246, 21835, 56713 ####[facility] [facility] [place] [address], [facility] NON-HDL CHOLESTEROL 183 mg/dL Normal [facility] Comment on above: Performed By: #### 1 0070, 49393, 74045, 21596, 53336, 19627 ####[facility] [facility] [place] [address], [place] Triglyceride [Mass/Vol] 277 mg/dL High 40-149 [facility] Comment on above: Result Comment: TRIG LYCERIDE REFERENCE RANGE: 20 YEARS AND OLDER CARDIOVASCULAR RISK LESS THAN 150 mg/dl LOW RISK 150 TO 199 mg/dl BORDERLINE RISK 200 mg/dl AND GREATER HIGH RISK Performed By: #### 1 0070, 04225, 80142, 95685, 13014, 89396 ####[facility] [place] [address], [place] VLDL CHOL 55 mg/dL High 0-40 [facility] Comment on above: Performed By: #### 1 0070, 64945, 78526, 55032, 68064, 77319 ####[facility] [facility] [place] [address], [facility] MAGNESIUM BLOODon 03-01-2021 Magnesium [Mass/Vol] 1.9 mg/dL Normal 1.9-2.7 [facility] Comment on above: Performed By: #### 1 0070, 86760, 89501, 94750, 55560, 14769 ####[facility] [facility] [place] [address], [facility] PHOSPHORUS BLOODon Phosphate [Mass/Vol] 2.5 mg/dL Normal 2.5-5.0 [facility] Comment on above: Performed By: #### 1 0070, 43600, 30202, 86648, 74836, 05493 ####[facility] [facility].[address] PROSPERAon 03-01-2021 PROSPERA KIT Results to be mailed directly to physician's office by reference lab. Normal [facility] Comment on above: Performed By: #### 3 8746 #### [facility] 3000 [facility]. [address] RESULT Normal [facility] Comment on above: Result Comment: Resu lts to be mailed directly to physician's office by reference lab. Performed By: #### 3 0956 #### [facility] [address] [facility] [place] [address], [facility] TACROLIMUSon 03-01-2021 Tacrolimus (Bld) [Mass/Vol] 10.6 ng/mL Normal 5.0-20.0 [facility] Comment on above: Result Comment: The [employer] STABLE MANAGER Tacrolimus assay is a delayed one-step immunoassay for the quantitative determination of tacrolimus in human whole blood using the chemiluminescent microparticle immunoassay (CMIA) technology with flexible assay protocols, referred to as Chemiflex. Performed By: #### 3 4968 #### [facility] [address] [facility] [address], [facility] URIC ACID BLOODon 03-01-2021 Urate [Mass/Vol] 3.5 mg/dL Normal 2.3-6.6 [facility] Comment on above: Performed By: #### 1 0070, 95190, 13601, 66625, 64854, 57286 ####[facility] [facility] [address], [facility] CBC W/DIFFon 02-02-2021 ABS IMM GRANS 0.0 10*3/uL Normal 0.0-0.2 [facility] Comment on above: Performed By: #### 5 0103 #### [facility] [address] [facility] [place] [address], [facility] ABS NEUTROPHILS 5.5 10*3/uL Normal 1.6-7.6 [facility] Comment on above: Performed By: #### 5 0103 #### [facility] [address] [facility] [place] [address], [facility] Basophils (Bld) [#/Vol] 0.0 10*3/uL Normal 0.0-0.2 [facility] Comment on above: Performed By: #### 5 0103 #### [facility] [address] [facility] [place] [address], [facility] Basophils/100 WBC (Bld) 0.4 % Normal 0.0-1.0 [facility] Comment on above: Performed By: #### 5 0103 #### [facility] [address] [facility] [place] [address], [facility] Eosinophils (Bld) [#/Vol] 0.1 10*3/uL Normal 0.0-0.5 [facility] Comment on above: Performed By: #### 5 0103 #### [facility] [address] [place] [address], [facility] Eosinophils/100 WBC (Bld) 1.5 % Normal 0.0-6.0 [facility] Comment on above: Performed By: #### 5 0103 #### [facility] [address] [facility]. [address] Erythrocyte distribution width (RBC) [Ratio] 12.8 % Normal 11.5-15.0 [facility] Comment on above: Performed By: #### 5 0103 #### [facility] [address] [facility]. [address] Hematocrit (Bld) [Volume fraction] 42.1 % Normal 36.0-45.0 [facility] Comment on above: Performed By: #### 5 0103 #### [facility] [address] [facility] [address] Hemoglobin (Bld) [Mass/Vol] 13.3 g/dL Normal 12.0-15.0 [facility] Comment on above: Performed By: #### 5 0103 #### [facility] [address] [facility]. [address] IMMATURE GRANS 0.4 % Normal 0.0-1.0 [facility] Comment on above: Performed By: #### 5 0103 #### [facility] [address] [facility] [address] Lymphocytes (Bld) [#/Vol] 1.8 10*3/uL Normal 1.2-4.0 [facility] Comment on above: Performed By: #### 5 3 #### [facility] [address] [facility]. [address] Lymphocytes/100 WBC (Bld) 21.2 % Normal 20.0-45.0 [facility] Comment on above: Performed By: #### 5 3 #### [facility] [address] [place] [address], [facility] MCH (RBC) [Entitic mass] 27.4 pg Normal 27.0-33.0 [facility] Comment on above: Performed By: #### 5 3 #### [facility] [address] [facility]. [address] MCHC (RBC) [Mass/Vol] 31.6 g/dL Low 32.0-35.0 [facility] Comment on above: Performed By: #### 5 3 #### [facility] [address] [facility] [place] [place] [address], [facility] MCV (RBC) [Entitic vol] 86.6 fL Normal 82.0-98.0 [facility] Comment on above: Performed By: #### 5 3 #### [facility] [address] Monocytes (Bld) [#/Vol] 1.0 10*3/uL Normal 0.1-1.0 [facility] Comment on above: Performed By: #### 5 3 #### [facility] [address] MONOS 12.2 % High 5.0-12.0 [facility] Comment on above: Performed By: #### 5 102 #### [facility] [address] Neutrophils/100 WBC (Bld) 64.3 % Normal 40.0-72.0 [facility] Comment on above: Performed By: #### 5 3 #### [facility] [address] Nucleated RBC/100 WBC (Bld) [Ratio] 0 % Normal 0-0 [facility] Comment on above: Performed By: #### 5 3 #### [facility] [address] [place] [address], [facility] PLAT CNT 190 10*3/uL Normal 150-400 [facility] Comment on above: Performed By: #### 5 102 #### [facility] [address] [place] [address], [facility] RBC (Bld) [#/Vol] 4.86 10*6/uL Normal 3.80-5.00 [facility] Comment on above: Performed By: #### 5 102 #### [facility] [address] [place] [address], [facility] WBC (Bld) [#/Vol] 8.49 10*3/uL Normal 4.00-10.60 [facility] Comment on above: Performed By: #### 5 102 #### [facility] [address] [facility] [place] [address], [facility] COMP METABOLIC PANELon 02-02 Albumin [Mass/Vol] 3.9 g/dL Normal 3.5-5.7 [facility] Comment on above: Performed By: #### 3 175 #### [facility] [address] [facility] [place] [address], [facility] ALKALINE PHOSPH 54 IU/L Normal 34-104 [facility] Comment on above: Performed By: #### 3 175 #### [facility] [address] [facility]. [address] ALT [Catalytic activity/Vol] 19 U/L Normal 7-52 [facility] Comment on above: Performed By: #### 3 1752 #### [facility] [address] [facility] [address] AST [Catalytic activity/Vol] 19 U/L Normal 13-39 [facility] Comment on above: Performed By: #### 3 175 #### [facility] [address] [place] [address], [facility] Bilirubin [Mass/Vol] 0.8 mg/dL Normal 0.3-1.0 [facility] Comment on above: Performed By: #### 3 175 #### [facility] [address] [place] [address], [place] Calcium [Mass/Vol] 9.5 mg/dL Normal 8.6-10.3 [facility] Comment on above: Performed By: #### 3 1752 #### [facility] [address] [place] [address], [place] Chloride [Moles/Vol] 105 mmol/L Normal 98-107 [facility] Comment on above: Performed By: #### 3 1752 #### [facility] [address] [place] [address], [place] CO2 [Moles/Vol] 26 mmol/L Normal 21-31 [facility] Comment on above: Performed By: #### 3 1752 #### [facility] [address] [place] [address], [place] Creatinine [Mass/Vol] 1.92 mg/dL High 0.60-1.20 [facility] Comment on above: Performed By: #### 3 1752 #### [facility] [address] [place] [address], [place] eGFR- 33 ml/min/1.73sq m Abnormal >60 [facility] Comment on above: Performed By: #### 3 1752 #### [facility] [address] [place] [address], [place] eGFR- non- 27 ml/min/1.73sq m Abnormal >60 [facility] Comment on above: Performed By: #### 3 1752 #### [facility] [address] [place] [address], [place] Glucose [Mass/Vol] 152 mg/dL High 70-100 [facility] Comment on above: Performed By: #### 3 1752 #### [facility] [address] [place] [address], [place] Potassium [Moles/Vol] 3.8 mmol/L Normal 3.5-5.1 [facility] Comment on above: Performed By: #### 3 1752 #### [facility] [address] Protein [Mass/Vol] 6.3 g/dL Normal 6.0-8.3 [facility] Comment on above: Performed By: #### 3 1752 #### [facility] [address] [facility]. [address] Sodium [Moles/Vol] 139 mmol/L Normal 136-145 [facility] Comment on above: Performed By: #### 3 1752 #### [facility] [address] Urea nitrogen [Mass/Vol] 40 mg/dL High 7-25 [facility] Comment on above: Performed By: #### 3 1752 #### [facility] [address] DIRECT BILIon 02-02-2021 Bilirubin.direct [Mass/Vol] 0.1 mg/dL Normal 0.0-0.2 [facility] Comment on above: Performed By: #### 3 1752 #### [facility] [address] EVEROLIMUS 15190kd EVEROLIMUS 4.0 ng/mL Normal [facility] Comment on above: Result Comment: Ther [...] developed and its performance characteristics determined by [facility]. It has not been cleared or approved by the US Food and Drug Administration. This test was performed in a CLIA certified laboratory and is intended for clinical purposes. Performed By: [facility] [address] [place] [address] Animal Ecologist: Krystal Vázquez MD LIPID PROFILEon 02-02-2021 Cholesterol [Mass/Vol] 230 mg/dL High 120-200 [facility] Comment on above: Result Comment: CHOL ESTEROL REFERENCE RANGE: 20 YEARS AND OLDER CARDIOVASCULAR RISK Less than 200 mg/dl Low Risk 200 to 239 mg/dl Borderline Risk 240 mg/dl and greater High Risk Performed By: #### 3 1752 #### [facility] [address] [facility] [place] [place] [address], [facility] Cholesterol in HDL [Mass/Vol] 46 mg/dL Normal 23-92 [facility] Comment on above: Result Comment: Slig ht variation in normal range could be due to gender and/or age. HDL CHOLESTEROL REFERENCE RANGE: 20 years and older Cardiovascular Risk > or =60 mg/dL Desirable 40 TO 59 mg/dL Low Risk <40 mg/dL High Risk Performed By: #### 3 1752 #### [facility] [address] [facility] [place] [address], [facility] Cholesterol in LDL [Mass/Vol] 128 mg/dL Normal 0-130 [facility] Comment on above: Result Comment: LDL IS A CALCULATION LDL IS ONLY VALID IF THE TRIG IS LESS THAN 400. Performed By: #### 3 1752 #### [facility] [address] [place] [address], [facility] Cholesterol.total/Ch olesterol in HDL [Mass ratio] 5.0 {ratio} High .0-4.5 [facility] Comment on above: Performed By: #### 3 1752 #### [facility] [address] [place], [place] [address] [place] [address] NON-HDL CHOLESTEROL 184 mg/dL Normal [facility] Comment on above: Performed By: #### 3 1752 #### [facility] [address] [place] [address], [facility] Triglyceride [Mass/Vol] 278 mg/dL High 40-149 [facility] Comment on above: Result Comment: TRIG LYCERIDE REFERENCE RANGE: 20 YEARS AND OLDER CARDIOVASCULAR RISK LESS THAN 150 mg/dl LOW RISK 150 TO 199 mg/dl BORDERLINE RISK 200 mg/dl AND GREATER HIGH RISK Performed By: #### 3 1752 #### [facility] [address] [facility] [place] [place] [address], [facility] VLDL CHOL 56 mg/dL High 0-40 [facility] Comment on above: Performed By: #### 3 1752 #### [facility] [address] [facility]. [address] MAGNESIUM BLOODon 02-02-2021 Magnesium [Mass/Vol] 1.9 mg/dL Normal 1.9-2.7 [facility] Comment on above: Performed By: #### 3 1752 #### [facility] [address] [facility] [place] [address], [facility] PHOSPHORUS BLOODon Phosphate [Mass/Vol] 2.9 mg/dL Normal 2.5-5.0 [facility] Comment on above: Performed By: #### 3 1752 #### [facility] [address] [facility] [place] [address], [facility] PROSPERAon 02-02-2021 PROSPERA KIT Results to be mailed directly to physician's office by reference lab. Normal [facility] Comment on above: Result Comment: Test performed by [id number] [place] [address] No result expected. For billing and tracking purposes only. Specimen collected for transplant patient and sent to [facility] per Dr instructions. No charge. Performed By: #### 3 1756 #### [facility] [address] RESULT Results to be mailed directly to physician's office by reference lab. Normal [facility] Comment on above: Performed By: #### 3 1756 #### [facility] [address] TACROLIMUSon 02-02-2021 Tacrolimus (Bld) [Mass/Vol] 7.0 ng/mL Normal 5.0-20.0 [facility] Comment on above: Result Comment: The [employer] Tacrolimus assay is a delayed one-step immunoassay for the quantitative determination of tacrolimus in human whole blood using the chemiluminescent microparticle immunoassay (CMIA) technology with flexible assay protocols, referred to as Chemiflex. Performed By: #### 9 9914 ####[facility] URIC ACID BLOODon 02-02-2021 Urate [Mass/Vol] 3.4 mg/dL Normal 2.3-6.6 [facility] Comment on above: Performed By: #### 3 1752 #### [facility] [address] BK VIRUS QUANTITATION FOR PL ASMAon 12-28-2020 BKV Plasma Quantitation by PCR Not detected Normal [facility] Comment on above: Result Comment: Meth od: BK virus was measured by quantitative polymerase chain reaction using a fluorescent hydrolysis probe targeting the polyomavirus BK MANGLE ROLL OPERATOR-1 gene. The lower limit of quantitation of the assay is 500 copies of BK genome per milliliter of plasma or urine, and any detectable BK DNA below that level is reported as: Detected, <500 copies/ml. Serial BK virus measurement can be used to monitor disease activity. (Reference: George reyl. J CLIN MICRO 2004; 42:2446-0476). This test was developed and its performance characteristics determined by the [facility]. It has not been approved by the US Food and Drug Administration. However, such approval is not required for clinical implementation, and test results have been shown to be clinically useful. This laboratory is CAP accredited and CLIA certified to perform high complexity testing. Performed By: #### 3 1756 #### [facility] [address] [facility] [place] [address], [facility] BKV Plasma Quantitation Log by PCR Not detected Normal [facility] Comment on above: Performed By: #### 3 1756 #### [facility] [address] [place] [address], [facility] COMP METABOLIC PANELon 12-28 Albumin [Mass/Vol] 3.7 g/dL Normal 3.5-5.7 [facility] Comment on above: Performed By: #### 3 1752 #### [facility] [address] [place] [address], [facility] ALKALINE PHOSPH 66 IU/L Normal 34-104 [facility] Comment on above: Performed By: #### 3 1752 #### [facility] [address] [facility] [place] [address], [facility] ALT [Catalytic activity/Vol] 17 U/L Normal 7-52 [facility] Comment on above: Performed By: #### 3 1752 #### [facility] [address] [facility] [place] [address], [facility] AST [Catalytic activity/Vol] 17 U/L Normal 13-39 [facility] Comment on above: Performed By: #### 3 1752 #### [facility] [address] [place] [address], [facility] Bilirubin [Mass/Vol] 0.9 mg/dL Normal 0.3-1.0 [facility] Comment on above: Performed By: #### 3 1752 #### [facility] [address] [place] [address], [place] Calcium [Mass/Vol] 9.8 mg/dL Normal 8.6-10.3 [facility] Comment on above: Performed By: #### 3 1752 #### [facility] [address] [place] [address], [place] Chloride [Moles/Vol] 102 mmol/L Normal 98-107 [facility] Comment on above: Performed By: #### 3 1752 #### [facility] [address] [place] [address], [place] CO2 [Moles/Vol] 28 mmol/L Normal 21-31 [facility] Comment on above: Performed By: #### 3 1752 #### [facility] [address] [place] [address], [place] Creatinine [Mass/Vol] 1.94 mg/dL High 0.60-1.20 [facility] Comment on above: Performed By: #### 3 1752 #### [facility] [address] [place] [address], [place] eGFR- 32 ml/min/1.73sq m Abnormal >60 [facility] Comment on above: Performed By: #### 3 1752 #### [facility] [address] [place] [address], [place] eGFR- non- 27 ml/min/1.73sq m Abnormal >60 [facility] Comment on above: Performed By: #### 3 1752 #### [facility] [address] [place] [address], [place] Glucose [Mass/Vol] 211 mg/dL High 70-100 [facility] Comment on above: Performed By: #### 3 1752 #### [facility] [address] [place] [address], [place] Potassium [Moles/Vol] 3.8 mmol/L Normal 3.5-5.1 [facility] Comment on above: Performed By: #### 3 1752 #### [facility] [address] [place] [address], [place] Protein [Mass/Vol] 6.0 g/dL Normal 6.0-8.3 [facility] Comment on above: Performed By: #### 3 1752 #### [facility] [address] Sodium [Moles/Vol] 137 mmol/L Normal 136-145 [facility] Comment on above: Performed By: #### 3 1752 #### [facility] [address] [facility] [address] Urea nitrogen [Mass/Vol] 36 mg/dL High 7-25 [facility] Comment on above: Performed By: #### 3 1752 #### [facility] [address] CREATININE URINE RANDOMon Creatinine (U) [Mass/Vol] 18.0 mg/dL Normal [facility] Comment on above: Result Comment: Ther e are no established reference values for random urine specimens Performed By: #### 4 1802, 30026 ####[facility] DIRECT BILIon 12-28-2020 Bilirubin.direct [Mass/Vol] 0.2 mg/dL Normal 0.0-0.2 [facility] Comment on above: Performed By: #### 0 0121, 62151, 11830, 86532, 99045, 97509 ####[facility] EVEROLIMUS 39827qi EVEROLIMUS 4.4 ng/mL Normal [facility] Comment on above: Result Comment: Ther [...] developed and its performance characteristics determined by [facility]. It has not been cleared or approved by the [place] Food and Drug Administration. This test was performed in a CLIA certified laboratory and is intended for clinical purposes. Performed By: [facility] [address] [place] [id number] Animal Ecologist: Krystal Vázquez MD LIPID PROFILEon 12-28-2020 Cholesterol [Mass/Vol] 263 mg/dL High 120-200 [facility] Comment on above: Result Comment: CHOL ESTEROL REFERENCE RANGE: 20 YEARS AND OLDER CARDIOVASCULAR RISK Less than 200 mg/dl Low Risk 200 to 239 mg/dl Borderline Risk 240 mg/dl and greater High Risk Performed By: #### 0 0121, 86323, 48209, 84820, 93323, 15673 ####[facility]3000 [facility] [place] [address], [facility] Cholesterol in HDL [Mass/Vol] 47 mg/dL Normal 23-92 [facility] Comment on above: Result Comment: Slig ht variation in normal range could be due to gender and/or age. HDL CHOLESTEROL REFERENCE RANGE: 20 years and older Cardiovascular Risk > or =60 mg/dL Desirable 40 TO 59 mg/dL Low Risk <40 mg/dL High Risk Performed By: #### 0 0121, 55984, 57179, 65208, 10353, 42372 ####[facility]3000 [facility] [place] [address], [facility] Cholesterol in LDL [Mass/Vol] 131 mg/dL High 0-130 [facility] Comment on above: Result Comment: LDL IS A CALCULATION LDL IS ONLY VALID IF THE TRIG IS LESS THAN 400. Performed By: #### 0 0121, 92011, 85860, 26661, 70508, 53400 ####[facility] [facility].[address] Cholesterol.total/Ch olesterol in HDL [Mass ratio] 5.6 {ratio} High .0-4.5 [facility] Comment on above: Performed By: #### 0 0121, 17898, 68887, 81434, 22996, 55756 ####[facility] [facility].[address] NON-HDL CHOLESTEROL 216 mg/dL Normal [facility] Comment on above: Performed By: #### 0 0121, 57519, 90257, 83538, 71248, 64187 ####[facility] [facility].[address] Triglyceride [Mass/Vol] 424 mg/dL High 40-149 [facility] Comment on above: Result Comment: TRIG LYCERIDE REFERENCE RANGE: 20 YEARS AND OLDER CARDIOVASCULAR RISK LESS THAN 150 mg/dl LOW RISK 150 TO 199 mg/dl BORDERLINE RISK 200 mg/dl AND GREATER HIGH RISK Performed By: #### 0 0121, 44441, 80035, 42847, 33662, 32307 ####[facility] [facility].[address] VLDL CHOL 85 mg/dL High 0-40 [facility] Comment on above: Performed By: #### 0 0121, 57071, 58998, 29408, 11441, 86097 ####[facility] [facility].[address] MAGNESIUM BLOODon 12-28-2020 Magnesium [Mass/Vol] 1.8 mg/dL Low 1.9-2.7 [facility] Comment on above: Performed By: #### 0 0121, 18608, 35244, 13818, 76136, 36956 ####[facility] [facility] [facility] [place] [address], [facility] PHOSPHORUS BLOODon 1 Phosphate [Mass/Vol] 2.4 mg/dL Low 2.5-5.0 [facility] Comment on above: Performed By: #### 0 0121, 25749, 38305, 11872, 87955, 66512 ####[facility] [facility].[address] PROSPERAon 12-28-2020 PROSPERA KIT Results to be mailed directly to physician's office by reference lab. Normal [facility] Comment on above: Result Comment: Test performed by [email or web address] [place] [address] Specimen collected for transplant patient and sent to [facility] per Dr instructions. No charge. No result expected. For billing and tracking purposes only. Performed By: #### 3 1756 #### [facility] [address] [facility]. [address] RESULT Results to be mailed directly to physician's office by reference lab. Normal [facility] Comment on above: Performed By: #### 3 1756 #### [facility] [address] [facility] [place] [address], [facility] T PROT UR Nasir 12-28-2020 U TOTAL PROTEIN 34.0 mg/dL Normal [facility] Comment on above: Result Comment: Ther e are no established reference values for random urine specimens Performed By: #### 4 1802, 19939 ####[facility] [facility].[address] TACROLIMUSon 12-28-2020 Tacrolimus (Bld) [Mass/Vol] 7.9 ng/mL Normal 5.0-20.0 [facility] Comment on above: Result Comment: The [employer] Tacrolimus assay is a delayed one-step immunoassay for the quantitative determination of tacrolimus in human whole blood using the chemiluminescent microparticle immunoassay (CMIA) technology with flexible assay protocols, referred to as Chemiflex. Performed By: #### 9 9914 ####[facility] [place] [address], [facility] URIC ACID BLOODon 12-28-2020 Urate [Mass/Vol] 2.9 mg/dL Normal 2.3-6.6 [facility] Comment on above: Performed By: #### 0 0121, 41853, 07581, 25729, 24803, 79817 ####[facility] [place] [address], [facility] COMP METABOLIC PANELon 12-01 Albumin [Mass/Vol] 3.9 g/dL Normal 3.5-5.7 [facility] Comment on above: Performed By: #### 1 0070, 50791, 79262, 95955, 75977, 11924 ####[facility] [place] [address], [facility] ALKALINE PHOSPH 95 IU/L Normal 34-104 [facility] Comment on above: Performed By: #### 1 0070, 60046, 81988, 64850, 75871, 39051 ####[facility] [place] [address], [facility] ALT [Catalytic activity/Vol] 22 U/L Normal 7-52 [facility] Comment on above: Performed By: #### 1 0070, 93151, 94729, 05150, 28488, 63896 ####[facility] [address], [facility] AST [Catalytic activity/Vol] 18 U/L Normal 13-39 [facility] Comment on above: Performed By: #### 1 0070, 12007, 89281, 96098, 13235, 12281 ####[facility] [address], [facility] Bilirubin [Mass/Vol] 0.9 mg/dL Normal 0.3-1.0 [facility] Comment on above: Performed By: #### 1 0070, 38471, 14885, 47026, 16929, 68498 ####[facility] [place] [address], [facility] Calcium [Mass/Vol] 10.2 mg/dL Normal 8.6-10.3 [facility] Comment on above: Performed By: #### 1 0070, 08715, 65117, 02865, 59420, 49021 ####[facility] [place] [address], [place] Chloride [Moles/Vol] 100 mmol/L Normal 98-107 [facility] Comment on above: Performed By: #### 1 0070, 60932, 31770, 68569, 28901, 04203 ####[facility] [place] [address], [place] CO2 [Moles/Vol] 28 mmol/L Normal 21-31 [facility] Comment on above: Performed By: #### 1 0070, 75669, 87544, 46281, 37724, 92367 ####[facility] [place] [address], [facility] Creatinine [Mass/Vol] 2.01 mg/dL High 0.60-1.20 [facility] Comment on above: Performed By: #### 1 0070, 64612, 43833, 31075, 80964, 98033 ####[facility] [place] [address], [place] eGFR- 30 ml/min/1.73sq m Abnormal >60 [facility] Comment on above: Performed By: #### 1 0070, 12357, 38040, 01353, 33906, 92824 ####[facility] [place] [address], [place] eGFR- non- 25 ml/min/1.73sq m Abnormal >60 [facility] Comment on above: Performed By: #### 1 0070, 20493, 41927, 53771, 02509, 37247 ####[facility] [place] [address], [place] Glucose [Mass/Vol] 280 mg/dL High 70-100 [facility] Comment on above: Performed By: #### 1 0070, 05814, 23506, 84614, 99061, 91160 ####[facility] [place] [address], [place] Potassium [Moles/Vol] 4.3 mmol/L Normal 3.5-5.1 [facility] Comment on above: Performed By: #### 1 0070, 17533, 56439, 94359, 97698, 59577 ####[facility] [place] [address], [place] Protein [Mass/Vol] 6.5 g/dL Normal 6.0-8.3 [facility] Comment on above: Performed By: #### 1 0070, 56641, 24752, 77275, 31946, 32963 ####[facility] [place] [address], [place] Sodium [Moles/Vol] 135 mmol/L Low 136-145 [facility] Comment on above: Performed By: #### 1 0070, 96503, 42051, 55234, 48016, 04705 ####[facility] [place] [address], [place] Urea nitrogen [Mass/Vol] 40 mg/dL High 7-25 [facility] Comment on above: Performed By: #### 1 0070, 67651, 41076, 55216, 38769, 88609 ####[facility] [place] [address], [place] DIRECT BILIon 12-01-2020 Bilirubin.direct [Mass/Vol] 0.1 mg/dL Normal 0.0-0.2 [facility] Comment on above: Performed By: #### 1 0070, 09018, 57086, 86836, 18305, 86410 ####[facility] EVEROLIMUS 38383bl EVEROLIMUS 4.2 ng/mL Normal [facility] Comment on above: Result Comment: Ther [...] developed and its performance characteristics determined by [facility]. It has not been cleared or approved by the US Food and Drug Administration. This test was performed in a CLIA certified laboratory and is intended for clinical purposes. Performed By: [facility] [address] [place] [address] Animal Ecologist: Krystal Vázquez MD LIPID PROFILEon 12-01-2020 Cholesterol [Mass/Vol] 261 mg/dL High 120-200 [facility] Comment on above: Result Comment: CHOL ESTEROL REFERENCE RANGE: 20 YEARS AND OLDER CARDIOVASCULAR RISK Less than 200 mg/dl Low Risk 200 to 239 mg/dl Borderline Risk 240 mg/dl and greater High Risk Performed By: #### 1 0070, 06178, 00494, 55290, 26920, 14026 ####[facility] [place] [address], [facility] Cholesterol in HDL [Mass/Vol] 48 mg/dL Normal 23-92 [facility] Comment on above: Result Comment: Slig ht variation in normal range could be due to gender and/or age. HDL CHOLESTEROL REFERENCE RANGE: 20 years and older Cardiovascular Risk > or =60 mg/dL Desirable 40 TO 59 mg/dL Low Risk <40 mg/dL High Risk Performed By: #### 1 0070, 04539, 35432, 19927, 01669, 96839 ####[facility] [facility] [place] [address], [facility] Cholesterol in LDL [Mass/Vol] 133 mg/dL High 0-130 [facility] Comment on above: Result Comment: LDL IS A CALCULATION LDL IS ONLY VALID IF THE TRIG IS LESS THAN 400. Performed By: #### 1 0070, 41293, 85270, 05866, 94891, 40314 ####[facility] [facility] [place] [address], [facility] Cholesterol.total/Ch olesterol in HDL [Mass ratio] 5.4 {ratio} High .0-4.5 [facility] Comment on above: Performed By: #### 1 0070, 26637, 56179, 91225, 32254, 76770 ####[facility] [facility] [place] [address], [facility] NON-HDL CHOLESTEROL 213 mg/dL Normal [facility] Comment on above: Performed By: #### 1 0070, 76341, 57916, 25994, 88624, 42786 ####[facility] [facility] [place] [address], [place] Triglyceride [Mass/Vol] 398 mg/dL High 40-149 [facility] Comment on above: Result Comment: TRIG LYCERIDE REFERENCE RANGE: 20 YEARS AND OLDER CARDIOVASCULAR RISK LESS THAN 150 mg/dl LOW RISK 150 TO 199 mg/dl BORDERLINE RISK 200 mg/dl AND GREATER HIGH RISK Performed By: #### 1 0070, 93428, 59321, 60464, 68521, 75965 ####[facility] [place] [address], [facility] VLDL CHOL 80 mg/dL High 0-40 [facility] Comment on above: Performed By: #### 1 0070, 14085, 23835, 98705, 29117, 82907 ####[facility] [place] [address], [facility] MAGNESIUM BLOODon 12-01-2020 Magnesium [Mass/Vol] 1.8 mg/dL Low 1.9-2.7 [facility] Comment on above: Performed By: #### 1 0070, 73942, 24876, 02167, 99466, 47610 ####[facility] [facility] [place] [address], [facility] PHOSPHORUS BLOODon Phosphate [Mass/Vol] 2.8 mg/dL Normal 2.5-5.0 [facility] Comment on above: Performed By: #### 1 0070, 78740, 19408, 44521, 67691, 04636 ####[facility] [facility] [place] [address], [facility] PROSPERAon 12-01-2020 PROSPERA KIT Results to be mailed directly to physician's office by reference lab. Normal [facility] Comment on above: Result Comment: Test performed by [email or web address] [place] [address] No result expected. For billing and tracking purposes only. Specimen collected for transplant patient and sent to [facility] per Dr instructions. No charge. Performed By: #### 3 3185 #### [facility] [address] RESULT Results to be mailed directly to physician's office by reference lab. Normal [facility] Comment on above: Performed By: #### 3 3099 #### [facility] [address] TACROLIMUSon 12-01-2020 Tacrolimus (Bld) [Mass/Vol] 6.5 ng/mL Normal 5.0-20.0 [facility] Comment on above: Result Comment: The [employer] Tacrolimus assay is a delayed one-step immunoassay for the quantitative determination of tacrolimus in human whole blood using the chemiluminescent microparticle immunoassay (CMIA) technology with flexible assay protocols, referred to as Chemiflex. Performed By: #### 9 9914 ####[facility] URIC ACID BLOODon 12-01-2020 Urate [Mass/Vol] 3.2 mg/dL Normal 2.3-6.6 [facility] Comment on above: Performed By: #### 1 0070, 05086, 37505, 29239, 93680, 07769 ####[facility] Vital Signs Date Time Vital Sign Value Performing Clinician Facility 10-04-2024 13:46-0400 Body height 167.6 cm Jm Calderon MD Work Phone: [facility] 10-04-2024 13:46-0400 Body mass index (BMI) [Ratio] 26.95 kg/m2 Jm Calderon MD Work Phone: [facility] 10-04-2024 13:46-0400 Body weight 75.75 kg Jm Calderon MD Work Phone: [facility] 10-04-2024 13:46-0400 Diastolic blood pressure 78 mm[Hg] Jm Calderon MD Work Phone: [facility] 10-04-2024 13:46-0400 Heart rate 68 /min Jm Calderon MD Work Phone: [facility] 10-04-2024 13:46-0400 Respiratory rate 16 /min Jm Calderon MD Work Phone: [facility] 10-04-2024 13:46-0400 SaO2% (BldA) [Mass fraction] 95 % Jm Calderon MD Work Phone: [facility] 10-04-2024 13:46-0400 Systolic blood pressure 130 mm[Hg] Jm Calderon MD Work Phone: [facility] 06-14-2024 13:32-0400 Body height 167.6 cm Jm Calderon MD Work Phone: [facility] 06-14-2024 13:32-0400 Body mass index (BMI) [Ratio] 27.92 kg/m2 Jm Calderon MD Work Phone: [facility] 06-14-2024 13:32-0400 Body weight 78.47 kg Jm Calderon MD Work Phone: [facility] 06-14-2024 13:32-0400 Diastolic blood pressure 72 mm[Hg] Jm Calderon MD Work Phone: [facility] 06-14-2024 13:32-0400 Heart rate 61 /min Jm Calderon MD Work Phone: [facility] 06-14-2024 13:32-0400 Respiratory rate 16 /min Jm Calderon MD Work Phone: [facility] 06-14-2024 13:32-0400 SaO2% (BldA) [Mass fraction] 95 % Jm Calderon MD Work Phone: [facility] 06-14-2024 13:32-0400 Systolic blood pressure 116 mm[Hg] Jm Calderon MD Work Phone: [facility] 03-29-2024 12:22-0500 Body height 167.6 cm Heather Sanchez MD Work Phone: [facility] 03-29-2024 12:22-0500 Body mass index (BMI) [Ratio] 27.18 kg/m2 Heather Sanchez MD Work Phone: [facility] 03-29-2024 12:22-0500 Body weight 76.39 kg Heather Sanchez MD Work Phone: [facility] 03-29-2024 12:22-0500 Diastolic blood pressure 79 mm[Hg] Heather Sanchez MD Work Phone: [facility] 03-29-2024 12:22-0500 Heart rate 68 /min Heather Sanchez MD Work Phone: [facility] 03-29-2024 12:22-0500 Respiratory rate 18 /min Heather Sanchez MD Work Phone: [facility] 03-29-2024 12:22-0500 SaO2% (BldA) [Mass fraction] 93 % Heather Sanchez MD Work Phone: [facility] 03-29-2024 12:22-0500 Systolic blood pressure 143 mm[Hg] Heather Sanchez MD Work Phone: [facility] 02-15-2024 11:48-0500 Body height 167.6 cm Steven Jones MD Work Phone: [facility] 02-15-2024 11:48-0500 Body mass index (BMI) [Ratio] 27.92 kg/m2 Steven Jones MD Work Phone: [facility] 02-15-2024 11:48-0500 Body weight 78.47 kg Steven Jones MD Work Phone: [facility] 12-15-2023 13:22-0400 Body height 167.6 cm Jm Calderon MD Work Phone: [facility] 12-15-2023 13:22-0400 Body mass index (BMI) [Ratio] 27.12 kg/m2 Jm Calderon MD Work Phone: [facility] 12-15-2023 13:22-0400 Body weight 76.2 kg Jm Calderon MD Work Phone: [facility] 12-15-2023 13:22-0400 Diastolic blood pressure 78 mm[Hg] Jm Calderon MD Work Phone: [facility] 12-15-2023 13:22-0400 Heart rate 63 /min Jm Calderon MD Work Phone: [facility] 12-15-2023 13:22-0400 Respiratory rate 16 /min Jm Calderon MD Work Phone: [facility] 12-15-2023 13:22-0400 Systolic blood pressure 118 mm[Hg] Jm Calderon MD Work Phone: [facility] 11-16-2023 12:56-0400 Heart rate 73 /min Samia Allen MD Work Phone: [facility] 11-16-2023 12:56-0400 SaO2% (BldA) [Mass fraction] 95 % Samia Allen MD Work Phone: [facility] 11-16-2023 11:43-0400 Body temperature 98.1 [degF] Samia Allen MD Work Phone: [facility] 11-16-2023 07:04-0400 Diastolic blood pressure 84 mm[Hg] Samia Allen MD Work Phone: [facility] 11-16-2023 07:04-0400 Systolic blood pressure 135 mm[Hg] Samia Allen MD Work Phone: [facility] 11-16-2023 05:50-0400 Body mass index (BMI) [Ratio] 28.16 kg/m2 Samia Allen MD Work Phone: [facility] 11-16-2023 05:50-0400 Body weight 79.1 kg Samia Allen MD Work Phone: [facility] 11-16-2023 03:09-0400 Respiratory rate 19 /min Samia Allen MD Work Phone: [facility] 11-10-2023 14:31-0400 Body height 167.6 cm Samia Allen MD Work Phone: [facility] 11-09-2023 15:37-0400 Body temperature 37.0 Samia Allen MD Work Phone: [facility] 09-09-2021 13:50-0400 Body height 170.18 cm Felisa Adams Other [facility] Other 09-09-2021 13:50-0400 Body mass index (BMI) [Ratio] 24.43 kg/m2 Felisa Angie Other [facility] Other 09-09-2021 13:50-0400 Body temperature 98.2 [degF] Felisa Angie Other [facility] Other 09-09-2021 13:50-0400 Body weight 70.76 kg Felisa Angie Other [facility] Other 09-09-2021 13:50-0400 Diastolic blood pressure 64 mm[Hg] Felisa Adams Other [facility] Other 09-09-2021 13:50-0400 Respiratory rate 18 /min Felisa Angie Other [facility] Other 09-09-2021 13:50-0400 SaO2% (BldA) [Mass fraction] 99 % Felisa Angie Other [facility] Other 09-09-2021 13:50-0400 Systolic blood pressure 108 mm[Hg] Felisa Adams Other [facility] Other 05-23-2021 14:00-0400 Body height 170.18 cm Bonnie Jaret Other [facility] Other 05-23-2021 14:00-0400 Body mass index (BMI) [Ratio] 23.18 kg/m2 Bonnie Raygoza Other [facility] Other 05-23-2021 14:00-0400 Body temperature 97.9 [degF] Bonnie Raygoza Other [facility] Other 05-23-2021 14:00-0400 Body weight 67.13 kg Bonnie Raygoza Other [facility] Other 05-23-2021 14:00-0400 Diastolic blood pressure 75 mm[Hg] Bonnie Raygoza Other [facility] Other 05-23-2021 14:00-0400 Respiratory rate 18 /min Bonnie Raygoza Other [facility] Other 05-23-2021 14:00-0400 SaO2% (BldA) [Mass fraction] 98 % Bonnie Raygoza Other [facility] Other 05-23-2021 14:00-0400 Systolic blood pressure 124 mm[Hg] Bonnie Raygoza Other [facility] Other Encounters Encounter Date Encounter Type Care Provider Facility Start: 10-04-2024 End: 10-04-2024 Zay Calderon MD Work Phone: [facility] Start: 10-04-2024 End: 10-04-2024 Zay Calderon MD Work Phone: [facility] Start: 10-04-2024 End: 10-04-2024 Office outpatient visit 25 minutes Jm Calderon MD Work Phone: [facility] Comment on above: Type 2 diabetes chino itus with hyperglycemia, with long-term current use of insulin (HCC) (Primary Dx); Vitamin D deficiency; Encounter for dietary consultation; Insulin long-term use (HCC); Hyperlipemia, mixed ; Acquired hypothyroidism ; detention current use of systemic steroids; Kidney transplant status (HCC) Start: 10-04-2024 End: 10-04-2024 ambulatory JM CALDERON Not Available Start: 09-28-2024 End: 09-28-2024 Orders Only Oh White MD Work Phone: [facility] Comment on above: Kidney replaced by t ransplant (Primary Dx) Start: 09-22-2024 End: 09-22-2024 ambulatory [facility] Start: 09-15-2024 ambulatory [facility] Start: 09-14-2024 ambulatory [facility] Start: 09-07-2024 End: 09-07-2024 ambulatory A[facility] Start: 08-31-2024 ambulatory [facility] Start: 08-19-2024 ambulatory [facility] Start: 06-20-2024 ambulatory [facility] Start: 06-14-2024 End: 06-14-2024 Bamboo flowsheet Jm Calderon MD Work Phone: [facility] Start: 06-14-2024 End: 06-14-2024 Bamboo flowsheet Jm Calderon MD Work Phone: [facility] Start: 06-14-2024 End: 06-14-2024 Office outpatient visit 25 minutes Jm Calderon MD Work Phone: [facility] Comment on above: Type 2 diabetes chino itus with hyperglycemia, with long-term current use of insulin (CMS/HCC) (Primary Dx); Vitamin D deficiency; Encounter for dietary consultation; Insulin long-term use (CMS/HCC); Hyperlipemia, mixed (CMS/HCC); Acquired hypothyroidism (CMS/HCC); detention current use of systemic steroids; Kidney transplant status Start: 06-14-2024 End: 06-14-2024 ambulatory JM CALDERON Not Available Start: 06-09-2024 End: 06-11-2024 ambulatory [facility] Start: 06-09-2024 End: 06-11-2024 Subsequent hospital visit by physician Steven Jones MD Work Phone: [facility] Comment on above: Acute saddle pulmona ry embolism with acute cor pulmonale (HCC) Acute saddle pulmona ry embolism with acute cor pulmonale (HCC); Pulmonary hypertension (HCC) Start: 05-23-2024 ambulatory [facility] Start: 04-22-2024 ambulatory [facility] Start: 04-08-2024 End: 04-08-2024 ambulatory [facility] Start: 03-29-2024 End: 03-29-2024 Office outpatient new 45 minutes Heather Sanchez MD Work Phone: [employer] Comment on above: Pulmonary hypertensi on (Primary Dx); Acute saddle pulmonary embolism with acute cor pulmonale; Sleep-related breathing disorder; Interatrial cardiac shunt; Diastolic dysfunction, left ventricle Start: 03-29-2024 ambulatory HEATHER SANCHEZ Fac ility: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) Start: 01-29-2024 End: 01-29-2024 ambulatory [facility] Start: 12-25-2023 End: 12-25-2023 ambulatory [facility] Start: 12-15-2023 End: 12-15-2023 Bamboo flowsheet Jm Calderon MD Work Phone: [facility] Start: 12-15-2023 End: 12-15-2023 Bamboo elo Calderon MD Work Phone: [facility] Start: 12-15-2023 End: 12-15-2023 Office outpatient visit 25 minutes Jm Calderon MD Work Phone: [facility] Comment on above: Type 2 diabetes chino itus with hyperglycemia, with long-term current use of insulin (CMS/HCC) (Primary Dx); Insulin long-term use (CMS/HCC); Hyperlipemia, mixed (CMS/HCC); Encounter for dietary consultation; Vitamin D deficiency; Acquired hypothyroidism (CMS/HCC); detention current use of systemic steroids; Kidney transplant status (CMS/HCC) Start: 12-15-2023 End: 12-15-2023 ambulatory JM CALDERON Not Available Start: 12-14-2023 ambulatory [facility] Start: 12-11-2023 End: 12-11-2023 ambulatory [facility] Start: 11-10-2023 Evaluation and manag ement of inpatient KERON GHOSH [facility] Start: 11-08-2023 End: 11-16-2023 Evaluation and management of inpatient Samia Allen MD Work Phone: [id number] Start: 11-08-2023 Evaluation and manag ement of inpatient SAUL MARINO [facility] Start: 11-03-2023 End: 11-03-2023 ambulatory TOY MARTÍNEZ [facility] Start: 10-20-2023 ambulatory LYNN MELGARAwais ISH [facility] Start: 10-19-2023 Emergency department patient visit LYNN ISH [facility] Start: 10-19-2023 End: 10-23-2023 Evaluation and management of inpatient DOLORES ALCARAZ [facility] Start: 10-19-2023 Emergency department patient visit JULIUS CORONA [facility] Start: 10-16-2023 End: 10-16-2023 ambulatory SAMY WHITE [facility] Start: 03-07-2022 End: 03-08-[address] ALEJANDRO VILLAGRAN Facility: Start: 11-25-2021 End: 11-26-[address] ALEJANDRO VILLAGRAN Facility: Start: 10-10-2021 End: 10-10-2021 ambulatory ALEJANDRO VILLAGRAN Facility:[facility] Start: 09-09-2021 End: 09-09-2021 ambulatory Felisa Adams Other [facility] Other Start: 09-09-2021 Office outpatient vi sit 25 minutes Felisa Adams [facility] Start: 05-27-2021 End: 05-27-2021 ambulatory Bonnie Raygoza Other [facility] Other Start: 05-27-2021 Telephone encounter Bonnie Raygoza [facility] [address] Start: 05-23-2021 End: 05-23-2021 ambulatory Bonnie Raygoza Other [facility] Other Start: 05-23-2021 Office outpatient ne w 20 minutes Bonnie Raygoza [facility] Start: 05-23-2021 End: 05-23-2021 Departed Referred SNOW PLOW TRACTOR OPERATOR Bonnie Raygoza Work Phone: [facility] [place] Start: 04-05-2021 End: 04-05-2021 ambulatory OHDALE RODRIGUEZMADDITomasa Facility:[facility] Start: 03-29-2021 End: 03-29-2021 ambulatory [place] EKTONYMADDIA Facility:[facility] Start: 03-01-2021 End: 03-01-2021 [facility]ulatory [place] [facility] Procedures Date Procedure Procedure Detail Performing Clinician Start: 10-04-2024 Gluc bld gluc mntr dev cleared fda spec home use Jm Calderon MD Work Phone: Start: 09-28-2024 History of renal transplant Kidney replaced by transplant Oh White MD Work Phone: Start: 06-14-2024 Gluc bld gluc mntr dev cleared fda spec home use Jm Calderon MD Work Phone: Start: 06-09-2024 Pulmonary ventilation & perfusion imaging Steven Jones MD Work Phone: Start: 06-09-2024 Radiologic exam chest 2 views Steven Jones MD Work Phone: Start: 03-29-2024 History of renal transplant Renal transplant recipient Heather Sanchez MD Work Phone: Start: 02-15-2024 Echo tthrc r-t 2d w/wom-mode compl spec&colr d Steven Jones MD Work Phone: Start: 12-15-2023 Gluc bld gluc mntr dev cleared fda spec home use Jm Calderon MD Work Phone: Start: 12-11-2023 Follow-up visit Follow-up JULIUS CORONA Start: 11-16-2023 Glucose blood reagent strip William [...] 11-15-2023 Basic metabolic panel calcium total Samantha Gaurang SNOW PLOW TRACTOR OPERATOR - REPRESENTATIVE GOVERNMENT RELATIONS Work Phone: Start: 11-14-2023 Glucose blood reagent strip William Mcknight MD Start: 11-14-2023 Glucose blood reagent strip William Mcknight MD Start: 11-14-2023 Glucose blood reagent strip William Mcknight MD Start: 11-14-2023 Glucose blood reagent strip William Mcknight MD Start: 11-14-2023 ANTI-XA, UNFRACTIONATED HEPARIN William Mcknight MD Start: 11-14-2023 Basic metabolic panel calcium total Samantha Gaurang SNOW PLOW TRACTOR OPERATOR - REPRESENTATIVE GOVERNMENT RELATIONS Work Phone: Start: 11-13-2023 Glucose blood reagent strip William Mcknight MD Start: 11-13-2023 Glucose blood reagent strip William Mcknight MD Start: 11-13-2023 Glucose blood reagent strip William Mcknight MD Start: 11-13-2023 Glucose blood reagent strip William Mcknight MD Start: 11-13-2023 ANTI-XA, UNFRACTIONATED HEPARIN William Mcknight MD Start: 11-13-2023 Basic metabolic panel calcium total Samantha Gaurang SNOW PLOW TRACTOR OPERATOR - REPRESENTATIVE GOVERNMENT RELATIONS Work Phone: Start: 11-12-2023 Glucose blood reagent [...] Start: 11-09-2023 End: 11-09-2023 Assay of lactate Pedromaryellen Naikjasbir DO Work Phone: Start: 11-09-2023 Blood gases [...] REFLEX TO MG FOR LOW K Alejandro Tomasa Bowers DO Work Phone: Start: 11-09-2023 Iadna [...] 11-08-2023 End: 11-08-2023 Comprehensive metabolic panel Sena Patton SNOW PLOW TRACTOR OPERATOR - REPRESENTATIVE GOVERNMENT RELATIONS Work Phone: Start: 11-08-2023 Ecg routine ecg w/least 12 lds trcg only w/o i&r Netta Wall MD Work Phone: Start: 11-08-2023 STREP PNEUMONIAE ANTIGEN Netta Matthew Work Phone: Start: 09-09-2021 Piperacillin/tazobactam Felisa Adams Other History of renal transplant Kidn ey transplant status ([facility]/HCC) Jm Calderon MD Work Phone: History of renal transplant Hist ory of renal transplant Samia Allen MD Work Phone: History of renal transplant Kidn ey transplant status Jm Calderon MD Work Phone: History of renal transplant Kidn ey transplant status ([facility]) Jm Calderon MD Work Phone: Plan of Treatment Date Care Activity Detail Author Start: 04-04-2026 Pneumococcal 0-64 ye ars Vaccine (3 of 3 - PPSV23 or PCV20) Pneumococcal 0-64 years Vaccine (3 of 3 - PPSV23 or PCV20) [facility] Start: 04-04-2026 Pneumococcal 50+ yea rs Vaccine (3 of 3 - PPSV23, PCV20 or PCV21) Pneumococcal 50+ years Vaccine (3 of 3 - PPSV23, PCV20 or PCV21) [facility] Start: 04-04-2026 PNEUMOCOCCAL VACCINE SERIES (3 of 3 - PPSV23 or PCV20) PNEUMOCOCCAL VACCINE SERIES (3 of 3 - PPSV23 or PCV20) [facility] Start: 04-04-[address] [facility] Start: 12-26-2025 Screening for malign ant neoplasm of colon [facility] Start: 01-03-2025 End: 01-03-2025 Patient encounter procedure 01/03/2025 2:10 PM EST Office Visit [facility] [address] [place] [phone] Jm Calderon MD [address] [place] [address] [facility] Start: 10-24-2024 Influenza vaccination Influenza Vacc [facility] Start: 10-04-2024 End: 10-04-2024 Patient encounter procedure [facility] Comment on above: Type 2 diabetes chino itus with hyperglycemia, with long-term current use of insulin (HCC) Start: 08-04-2024 End: 08-04-2024 Patient encounter procedure 08/04/2024 10:00 AM EDT Office Visit [facility] [address] [place] [phone] Steven Jones MD [address] [place], [place] [id number] FOLLOW UP WITH SLEEP STUDY RESULTS AND VQ SCAN RESULTS. - SLEEP STUDY IN [place] AND VQ SCAN IN [facility] Comment on above: FOLLOW UP WITH SLEEP STUDY RESULTS AND VQ SCAN RESULTS. - SLEEP STUDY IN [place] AND VQ SCAN IN [place] Start: 06-16-2024 End: 06-16-2024 Patient encounter procedure 06/16/2024 10:45 AM EDT Office Visit [facility] [place] [address], [address] [place] [address] Jerry Pereira MD [address] [place] [address] 6m [facility] [place] Comment on above: 6m Start: 06-14-2024 End: 06-14-2024 Patient encounter procedure [facility] Comment on above: Type 2 diabetes chino itus with hyperglycemia, with long-term current use of insulin ([facility]) Start: 03-03-2024 End: 03-03-2024 Patient encounter procedure 03/03/2024 10:00 AM EST Office Visit [facility] [address] [place] [phone] Steven Jones MD [address] [place], [place] [id number] CP PENDING ECHO SCHEDULED 02/14 LS///PFT and 6 mwt, f/u after ECHO [facility] Comment on above: CP PENDING ECHO SCHE DULED 02/14 LS///PFT and 6 mwt, f/u after ECHO Start: 12-27-2023 Screening for malign ant neoplasm of colon [facility]OR[facility]CER SCREENING DISCUSSION [facility] Start: 12-15-2023 End: 12-15-2023 Patient encounter procedure 12/15/2023 1:10 PM EDT Office Visit [facility] [address] [place] [phone] Jm Calderon MD [address] [place] [address] Type 2 diabetes mellitus with hyperglycemia, with long-term current use of insulin ([facility]) [facility] Comment on above: Type 2 diabetes chino itus with hyperglycemia, with long-term current use of insulin ([facility]) Start: 09-24-[address] [facility] Start: 2021 Respiratory Syncytia l Virus (RSV) or age 60 yrs+ (1 - Risk 60-74 years 1-dose series) Respiratory Syncytial Virus (RSV) or age 60 yrs+ (1 - Risk 60-74 years 1-dose series) [facility] Start: 2021 RSV VACCINE (1 - 1-d ose 60+ series) RSV VACCINE (1 - 1-dose 60+ series) [facility] Start: [address] [facility] Start: 05-23-2021 Bacteria identified in Urine by Culture Urine Culture [facility] Start: 09-07-2011 Administration of varicella zoster vaccine Zoster (Shingles) Vaccine (1 of 2) [facility] Start: 2006 Screening for malign ant neoplasm of colon [facility] Start: 2001 Lipid panel LIPID SCREENING [facility] Start: 2001 Screening for malign ant neoplasm of breast [facility] Start: 09-07-1991 Screening for malign ant neoplasm of cervix [facility] Start: 1982 Screening for malign ant neoplasm of cervix [facility] Start: 1980 DTaP,Tdap and Td Vaccines (1 - Tdap) DTaP,Tdap and Td Vaccines (1 - Tdap) [facility] Start: 1980 DTaP/Tdap/Td vaccine (1 - Tdap) DTaP/Tdap/Td vaccine (1 - Tdap) [facility] Start: 1980 Shingles vaccine (1 of 2) Shingles vaccine (1 of 2) [facility] Start: 1980 Third diphtheria, tetanus and acellular pertussis (DTaP) vaccination TDAP (ADULT) [facility] Start: 1980 Zoster vaccine hzv l ted for subcutaneous use ZOSTER (SHINGLES) VACCINE (1 of 2) [facility] Start: [address] [facility] Start: 09-07-1979 Adult BMI Screening Adult BMI Screen ing [facility] Start: 09-07-1979 Glaucoma screening [facility] Start: 09-07-1979 Hepatitis C screening [facility] Start: 1976 HIV screening [facility] Start: 1973 Depression Screen Depression Screen [facility] Start: 1973 Depression Screening Depression Scre ening [facility] Start: 1973 Tobacco Screening Tobacco Screening [facility] Start: [address] [facility] Start: 09-07-1971 Diabetic foot examination [facility] Start: 09-07-1971 Hemoglobin A1c measurement [facility] Start: 09-07-1971 Lipid panel [facility] Start: 1966 COVID-19 Vaccine (#1) COVID-19 Vacci ne (#1) [facility] Start: [address] [facility] Start: 1961 Hepatitis C screening HEPATITI S C VIRUS SCREENING [facility] Start: 1961 Tetanus vaccination TETANUS [facility] Start: 1961 Thyroid stimulating hormone measurement TSH [facility] Bacteria identified in Urine by Culture [facility] Work Phone: End: 11-18-2023 Basic Metabolic Panel w/ Reflex to MG [facility] Continuous pulse oximetry [facility] End: 11-08-2023 Culture, Respiratory [facility] Glucose [Mass/volume ] in Serum or Plasma [facility] Glucose [Mass/volume ] in Serum or Plasma [facility] Nasal Cannula Oxygen [facility] Oxygen therapy [[facility] Data Set] [facility] Immunizations Immunization Date Immunization Notes Care Provider [facility] 12-11-2022 influenza, injectabl e, quadrivalent, preservative free Jm Calderon MD Work Phone: [facility] 12-02-2021 Influenza, injectabl e, Madin Melissa Canine Kidney, quadrivalent with preservative Jm Calderon MD Work Phone: [facility] 04-04-2021 pneumococcal polysaccharide vaccine, 23 valent Jm Calderon MD Work Phone: [facility] 12-06-2019 influenza, injectabl e, quadrivalent, preservative free Jm Calderon MD Work Phone: [facility] 11-23-2017 influenza, injectabl e, quadrivalent, contains preservative Jm Calderon MD Work Phone: [facility] 11-27-2016 influenza, injectabl e, quadrivalent, contains preservative Jm Calderon MD Work Phone: [facility] 11-24-2015 influenza, injectabl e, quadrivalent, contains preservative Jm Calderon MD Work Phone: [facility] 11-24-2015 influenza virus vacc ine, unspecified formulation Oh White MD Work Phone: [facility] 09-21-2015 pneumococcal conjuga te vaccine, 13 valent Jm Calderon MD Work Phone: [facility] 08-24-2015 pneumococcal conjuga te vaccine, 13 valent Jm Calderon MD Work Phone: [facility] 04-16-2009 novel influenza-H1N1 -09, preservative-free, injectable Jm Calderon MD Work Phone: [facility] Payers Date Payer Category Payer Unknown [employer] [id number] 2024-Present [address] [address] [place] [address] [id number] 2024 Unknown [id number] 2023 Private Health Insurance [id number] 2020 Unknown [id number] 1961 Unknown [id number] 2.16.840.1.548962.3.579. 2.647 1961 Unknown [id number] 2.16.840.1.698007.3.579. 2.647 1961 Unknown [id number] 2.16.840.1.595775.3.579. 2.647 1961 Unknown [id number] 2.16.840.1.626479.3.579. 2.647 1961 Unknown [id number] 2.16.840.1.961488.3.579. 2.593 1961 Unknown [id number] 2.16.840.1.230982.3.579. 2.593 1961 Unknown [id number] 2.16.840.1.125197.3.579. 2.594 1961 Unknown [id number] 2.16.840.1.149730.3.579. 2.175 1961 Unknown [id number] 2.16.840.1.885628.3.579. 2.175 1961 Unknown [id number] 2.16.840.1.229570.3.579. 2.175 1961 Unknown [id number] 2.16.840.1.162490.3.579. 2.175 1961 Unknown [id number] 2.16.840.1.624036.3.579. 2.175 1961 Unknown [id number] 2.16.840.1.335418.3.579. 2.175 1961 Unknown [id number] 2.16.840.1.869780.3.579. 2.1259 1961 Unknown [id number] 2.16.840.1.827558.3.579. 2.1259 1961 Unknown [id number] 2.16.840.1.799874.3.579. 2.1259 1959 Unknown [id number] 2.16.840.1.448787.19 1959 Unknown [id number] Self-pay Self Pay [id number] Unknown Self Pay [id number] Social History Date Type Detail Facility Tobacco smoking stat us NHIS Unknown if ever smoked [employer] Other Start: 1960 Sex Assigned At Female [facility] Start: 04-05-2020 End: 12-01-2023 Sex Assigned At [facility] Start: 12-22-2017 End: 12-01-2023 Tobacco smoking status NHIS Never smoked tobacco [facility] Start: 04-05-2020 End: 12-01-2023 History of Social function [facility] Start: 1960 Sex assigned at Not on file [facility] Start: 12-22-2017 End: 11-08-2023 Tobacco use and exposure Smokeless tobacco non-user [facility] Start: 01-12-2024 End: 03-03-2024 Alcoholic beverage intake Not Asked [facility] Synchronized [facility] [employer] Liaison Has the electric, [employer], oil, or water [employer] threatened to shut off services in your home in past 12Mo No [facility] (I/We) worried whekate er (my/our) food would run out before (I/we) got money to buy more. Never true [facility] In the past 12 month s, has lack of transportation kept you from medical appointments or from getting medications? Patient declined [facility] Start: 11-08-2023 Alcohol Comment occasional [facility] Start: 09-28-2014 End: 11-08-2023 Sex Female (finding) [facility] Start: 02-25-2024 Gender identity Identifies as female gender (finding) [facility] Start: 02-25-2024 Sexual orientation Heterosexual (finding) [facility] Start: 01-06-2018 Alcoholic beverage intake [facility] Start: 12-22-2017 Alcohol Comment social [facility] Medical Equipment Procedure Code Equipment Code Equipment Origin al Text Equipment Identifier Dates 1 each by Other route in the morning and 1 each at noon and 1 each in the evening. Start: 03-25-2023 Clinical Notes 05-23-2021 to 10-06-2024 Jm Calderon MD - 10/04/2024 1:50 PM Eric Calderon MD - 06/14/2024 1:30 PM Suraj Sanchez MD - 03/29/2024 12:30 PM Rock Bush RN - 03/29/2024 12:30 PM ESTPatient Instructions Note Date & Type Note Facility 10-06-2024 Note [facility] 10-04-2024 History of Present illness Narrative Ja Tavera is a 64 y.o. female No ref. provider found presents with chief complaint of Diabetes and Follow-up HPI: Interim History 09/2024 Follow up visit on 10/04/2024. Blood sugar 7.5 on 08/31/2024, currently on Lantus 60 in am , Humalog ISS units mainly on dinner, GFR 19 in 08/2024, she is on steroid due to kidney transplant. Vaibhav CHEEMA Interim History 05/2024 Follow up visit on 06/14/2024. Blood sugar in our office 290, A1c with PCP 7, currently on Lantus 64, Humalog ISS units mainly on dinner, off Tradjenta 5 mg once a day due to coverage, CGM 3-62-35 avg 166. GFR 20 in April/2024, she is on steroid due to kidney transplant Interim History 11/2023 Follow up visit on [...] I do not have the result in [facility]. HPI: 07/2023 New patient sent from Dr. [...] ophthalmic emulsion 1 drop, Every 12 hours empagliflozin (JARDIANCE) 25 mg, Oral, Daily everolimus (Zortress) 0.75 MG tablet 1 tablet, 2 times daily famotidine (Pepcid) 20 MG tablet 1 tablet, 2 times daily febuxostat (Uloric) 40 MG tablet 1 tablet, Daily in the morning Ferrous Sulfate (IRON PO) 1 tablet, Daily RT glucose blood (OneTouch Verio) test strip 1 each, 3 times daily levothyroxine (Synthroid, Levoxyl) 125 MCG tablet 1 tablet, Daily Loratadine 10 MG capsule 1 capsule, Daily magnesium oxide (MAG-OX) 400 mg, Nightly metoprolol tartrate (Lopressor) 25 MG tablet 1 tablet, 2 times daily NovoLOG FLEXPEN 8 Units, Subcutaneous, 3 times daily before meals omega-3 (Fish Oil) 1000 MG capsule 2 capsules, 2 times daily Polyethyl Glycol-Propyl Glycol 0.4-0.3 % solution 1 drop, Daily PRN predniSONE (Deltasone) 10 MG tablet 1 tablet, Daily sodium bicarbonate 650 MG tablet 1 tablet, 2 times daily tacrolimus (Prograf) 5 MG capsule 1 capsule, 2 times daily therapeutic multivitamin-minerals (Theragran-M) tablet 1 tablet, Daily Toujeo Max SoloStar 55 Units, Daily Tradjenta 5 mg, Oral, Daily ALLERGIES: Allergies Allergen Reactions Aspirin Other [...] Arthritis CKD (chronic kidney disease), stage IV (HCC) Current chronic use of systemic steroids GERD (gastroesophageal reflux disease) HTN (hypertension) Hyperuricemia Hypomagnesemia Hypothyroidism Kidney transplant status (HCC) detention (current) use of insulin (HCC) Mixed hyperlipidemia Type 2 diabetes mellitus with hyperglycemia (HCC) Vitamin D deficiency Past Surgical History: Procedure Laterality Date CT GUIDED PERCUTANEOUS BIOPSY RENAL RIGHT Right 09/07/2024 CT GUIDED PERCUTANEOUS BIOPSY RENAL RIGHT 09/07/2024 DILATION AND CURETTAGE OF UTERUS THYROIDECTOMY TONSILLECTOMY [...] break Lab Results Component Value Date HGBA1C 7.5 (H) 08/31/2024 HGBA1C 7.6 (H) 08/19/2024 HGBA1C 7 (H) 06/20/2024 Lab Results Component Value Date GLU 220 10/04/2024 GLU 57 (L) 09/14/2024 GLU 73 09/07/2024 08/17/2017 12:00 PM 12/03/2017 12:00 PM 12/22/2017 12:00 PM 09/15/2023 10:01 AM 12/15/2023 1:22 PM 06/14/2024 1:32 PM 10/04/2024 1:46 PM Vitals BMI 25.84 kg/m2 25.84 kg/m2 25.84 kg/m2 25.69 kg/m2 27.12 kg/m2 27.92 kg/m2 26.95 kg/m2 BSA (m2) 1.88 m2 1.88 m2 1.88 m2 1.88 m2 1.88 m2 1.91 m2 1.88 m2 Systolic 118 116 130 Diastolic 78 72 78 Heart Rate 73 63 61 68 SpO2 95 % 95 % 95 % Resp 16 16 16 16 Height (in) 5' 7 5' 7 5' 7 5' 7 5' 6 5' 6 5' 6 Weight (lb) 165 165 165 164 168 173 167 Visit Report Report Report Report ASSESSMENT AND PLAN: Assessment/Plan Diagnoses and all orders for this visit: Type 2 diabetes mellitus with hyperglycemia, with long-term current use of insulin (HCC) - POCT glucose manually resulted - insulin aspart (NovoLOG FLEXPEN) 100 UNIT/ML pen; Inject 8 Units under the skin in the morning and 8 Units at noon and 8 Units in the evening. Inject before meals. We will decrease her Lantus to 50 units in the morning, start NovoLog fixed dose 4-6-8 according to meal size plus scale 2. In the morning, we will try to do PA for her Jardiance. Vitamin D deficiency Encounter for dietary consultation Insulin long-term use (HCC) Hyperlipemia, mixed Acquired hypothyroidism detention current use of systemic steroids Kidney transplant status (HCC) Last GFR 19 in August/2024 Follow up in about 3 months (around 01/04/2025). documented in this encounter [facility] 09-27-2024 Note CMV monthly lab test ing placed in outgoing mail with not for pt to share with her outside lab for testing due to Belatacept infusions. If the CMV is positive, she was advised to notify post coordinators @ [phone] [facility] 09-22-2024 Note [facility] 09-15-2024 Note Reviewed over the ph one with Dr. Kan patients TAC level and Sirolimus level 6.0. No new orders. [facility] 09-14-2024 Note [facility] 09-14-2024 Note Pt notified by detai led voicemail message to return to the lab for EBV and TB testing needed per reply from Enriqueta Lopez on [employer] Chat. Orders placed. [facility] 09-13-2024 Note S/P renal biopsy 08/23 08/[address] Samy White by phone & then sent this MD email to plan for repeat labs this week and FU next week with Dr. Waldo Ramirez. No new orders or reply received. [facility] 09-07-2024 Note [facility] 09-02-[address] White po, n o changes to tac level of 2.7 this week or sirolimus and will wait for lab results after biopsy next week. [facility] 08-31-2024 Note [facility] 08-29-2024 Note [facility] 08-24-2024 Note [facility] 08-22-2024 Note [facility] 08-22-2024 Note [employer] Chat rowdy joya sent to transplant pharmacists Enriqueta Rodriguez & Manuel Griffin about the Sirolimus dosing request per Dr. White. Sirolimus added to standing lab order. [facility] 08-22-2024 Note [facility] 08-19-2024 Note Helmet Hat Puncher was given a s ticky note from Registration with request. [facility] 06-14-2024 History of Present illness Narrative Ja Tavera is a 63 y.o. female No ref. provider found presents with chief complaint of Diabetes (AIC 7.0% 05/23/2024) and Follow-up HPI: Interim History 05/2024 Follow up visit on 06/14/2024. Blood sugar in our office 290, A1c with PCP 7, currently on Lantus 64, Humalog ISS units mainly on dinner, off Tradjenta 5 mg once a day due to coverage, CGM 3-62-35 avg 166. GFR 20 in April/2024, she is on steroid due to kidney transplant Interim History 11/2023 Follow up visit on [...] I do not have the result in [facility]. HPI: 07/2023 New patient sent from Dr. [...] ophthalmic emulsion 1 drop, Every 12 hours empagliflozin (JARDIANCE) 25 mg, Oral, Daily everolimus (Zortress) 0.75 MG tablet 1 tablet, 2 times daily famotidine (Pepcid) 20 MG tablet 1 tablet, 2 times daily febuxostat (Uloric) 40 MG tablet 1 tablet, Daily in the morning Ferrous Sulfate (IRON PO) 1 tablet, Daily RT glucose blood (OneTouch Verio) test strip 1 each, 3 times daily levothyroxine (Synthroid, Levoxyl) 125 MCG tablet 1 tablet, Daily Loratadine 10 MG capsule 1 capsule, Daily magnesium oxide (MAG-OX) 400 mg, Nightly metoprolol tartrate (Lopressor) 25 MG tablet 1 tablet, 2 times daily omega-3 (Fish Oil) 1000 MG capsule 2 capsules, 2 times daily Polyethyl Glycol-Propyl Glycol 0.4-0.3 % solution 1 drop, Daily PRN predniSONE (Deltasone) 10 MG tablet 1 tablet, Daily sodium bicarbonate 650 MG tablet 1 tablet, 2 times daily tacrolimus (Prograf) 5 MG capsule 1 capsule, 2 times daily therapeutic multivitamin-minerals (Theragran-M) tablet 1 tablet, Daily Toujeo Max SoloStar 55 Units, Daily Tradjenta 5 mg, Oral, Daily ALLERGIES: Allergies Allergen Reactions Aspirin Other [...] Arthritis CKD (chronic kidney disease), stage IV ([facility]) Current chronic use of systemic steroids GERD (gastroesophageal reflux disease) HTN (hypertension) ([facility]) Hyperuricemia Hypomagnesemia Hypothyroidism ([facility]/HCC) Kidney transplant status (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 Mixed hyperlipidemia ([facility]) Type 2 diabetes mellitus with hyperglycemia ([facility]) Vitamin D deficiency Past Surgical History: Procedure [...] break Lab Results Component Value Date HGBA1C 7.0 (H) 05/23/2024 HGBA1C 7.3 (H) 03/21/2024 HGBA1C 6.7 (H) 12/14/2023 Lab Results Component Value Date GLU 290 06/14/2024 GLU 134 (H) 05/23/2024 GLU 77 04/22/2024 07/24/2017 12:00 PM 08/17/2017 12:00 PM 12/03/2017 12:00 PM 12/22/2017 12:00 PM 09/15/2023 10:01 AM 12/15/2023 1:22 PM 06/14/2024 1:32 PM Vitals BMI 25.84 kg/m2 25.84 kg/m2 25.84 kg/m2 25.84 kg/m2 25.69 kg/m2 27.12 kg/m2 27.92 kg/m2 BSA (m2) 1.88 m2 1.88 m2 1.88 m2 1.88 m2 1.88 m2 1.88 m2 1.91 m2 Systolic 118 116 Diastolic 78 72 Heart Rate 73 63 61 SpO2 95 % 95 % Resp 16 16 16 Height (in) 5' 7 5' 7 5' 7 5' 7 5' 7 5' 6 5' 6 Weight (lb) 165 165 165 165 164 168 173 Visit Report Report Report ASSESSMENT AND PLAN: Assessment/Plan Diagnoses and all orders for this visit: Type 2 diabetes mellitus with hyperglycemia, with long-term current use of insulin (CMS/HCC) - POCT glucose manually resulted - empagliflozin (Jardiance) 25 MG; Take 1 tablet (25 mg) by mouth Daily We will continue with Lantus 64 units in the morning, Humalog sliding scale, I will add Jardiance I told her might not benefit her from diabetes but mainly for her heart also since GFR less than 20. 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 documented in this encounter [facility] 04-08-2024 Note [facility] 03-29-2024 History of Present illness Narrative [facility] Pulmonary Hypertension Program Clinic Visit History of Present Illness I had the pleasure of seeing Jasmin swann for evaluation of possible pulmonary hypertension. As you recall, she is a 63 y.o. female with a past medical history significant for prior renal transplant 2006 c/b CKD IV (Cr 2.1-2.4), T2DM, HTN, bladder cancer on chemotherapy, and saddle pulmonary embolism in 10/2023 s/p mechanical thrombectomy for management. In review of the patient's chart she was admitted locally in the setting of shortness of breath and acute hypoxic respiratory failure and initially treated for pneumonia and had a subsequent echocardiogram which showed severely dilated and dysfunction right ventricle with +Summers sign and elevated RVSP at 59 with concern for pulmonary embolism. She also had a DVU scan that was positive for lower extremity clot. She subsequently underwent mechanical thrombectomy for management. She was sent home on O2 with plans for lifelong apixaban. Notably her TTE during her stay also was positive for a PFO. She presented for local follow up on 03/03 with her lead software developer at which time she was feeling much better and no longer requiring oxygen. She had a repeat TTE prior to this appointment which showed normalization of RV size and function with RVSP mildly elevated at 46 mmHg. Her lead software developer ordered 6MWT, PFTs, and sleep study and advised referral to pulmonary hypertension program. She also planned for repeat V/Q scan in 4-6 months with echocardiogram per report. Subsequent 6MWT test showed 1500 ft duration with no desaturations. Her PFTs were normal. Her sleep study was also normal. In the office today the patient presents with her who helps to supplement history. She reports that prior to her blood clot she did not notice any issues with her breathing. She denies clear provoking event before her blood clot other than her cancer diagnosis. She reports that since her thrombectomy and being on anticoagulation she is feeling better. She will still get short of breath when she does activity to fast but does not feel limited. She can go up and down a flight of stairs with no issues and do all of her ADLs. She denies any chest pain. She can feel some palpitations when she gets short of breath. She denies dizziness/LH or syncope. She reports to occasional foot swelling that is long standing and watches her fluid and salt intake. She denies orthopnea/PND. She reports her blood pressure is usually 140/80s. Pulmonary hypertension risk factors: Anorexigen use: no Methamphetamine or cocaine use: no Sleep apnea: no Venous thromboembolism: yes. No prior before this event. Liver disease: no Kidney disease: yes Raynaud's: no HIV risk factors: no Family history of PAH: no Review of Systems Pertinent positives and negatives as per HPI. All other systems were reviewed and negative. Past Medical, Surgical, Family & Social History Past Medical History: Renal Transplant 2006 on immunosuppression with CKD IV (Cr 2.1-2.5) T2DM on insulin HTN Bladder cancer on chemotherapy Saddle Pulmonary Embolism with DVT s/p mechanical thrombectomy 10/2023 Surgical History: Renal Transplant History reviewed. No pertinent family history. Jasmin Tavera has no history on file for tobacco use, alcohol use, and drug use. Never tobacco user. Allergies & Medications Allergies Allergies Allergen Reactions Amlodipine Rash Current Medications Outpatient Medications Prior to Visit Medication Sig Dispense Refill alendronate 35 MG tablet Take 1 tablet by mouth every 7 days. Atorvastatin 40 MG tablet Take 1 tablet by mouth daily. bimatoprost (Lumigan) 0.01 % Solution Apply to eye. Calcium citrate 950 (200 Ca) MG tablet Take by mouth daily. Cyclosporin 0.05 % Emulsion ophthalmic suspension 1 drop 2 times daily. Eliquis 5 MG tablet Take 1 tablet by mouth every 12 hours. everolimus 0.75 MG tablet Take 1 tablet by mouth every 12 hours. faMOTIdine 20 MG tablet Take 1 tablet by mouth 2 times daily. febuxostat (Uloric) 40 MG tablet Take by mouth. hydrALAZINE 25 MG tablet Take 1 tablet by mouth 3 times daily. Insulin Aspart 100 UNIT/ML injection Inject 10 Units under the skin before meals & at bedtime. Insulin glargine 100 UNIT/ML vial Inject 56 Units under the skin At bedtime. In the morning Levothyroxine 125 MCG tablet Take 1 tablet by mouth every morning before breakfast. linaGLIPtin (Tradjenta) 5 MG tablet Take 1 tablet by mouth every 24 hours. magnesium oxide 400 MG tablet Take 1 tablet by mouth daily. Metoprolol 25 MG tab regular release Take 1 tablet by mouth 2 times daily. Multiple Vitamins-Minerals (Multivitamin w/ minerals, THERAPEUTIC-M,) tablet Take by mouth daily. omega-3 acid ethyl esters 1 g capsule Take 2 capsules by mouth 2 times daily. Polyethyl Glycol-Propyl Glycol (Systane) 0.4-0.3 % Solution ophthalmic solution predniSONE 10 MG tablet Take 1 tablet by mouth daily. Sodium bicarbonate 650 MG tablet Take 1 tablet by mouth 4 times daily. Tacrolimus (PROGRAF) 0.5 MG capsule Take 1 capsule by mouth 2 times daily. No facility-administered medications prior to visit. PH Medication History: Medication Dates started/stopped Reason for stopping none Physical Exam Vitals: 03/29/24 1222 BP: 143/79 Pulse: 68 Resp: 18 SpO2: 93% Weight: 76.4 kg (168 lb 6.4 oz) Height: 1.676 m (5' 6 ) General appearance: The patient is alert, oriented, cooperative and in no distress. Heent: Normocephalic. Extraocular motions are normal. Pupils appear equal, round, and reactive to light. Chest: Rhonchi bilaterally. Normal effort and percussion. Heart: Regular rate and rhythm. S1, S2 normal. Soft KAREEM at RUSB, clicks, rubs or gallops. Normal, non-displaced, PMI. There is no jugular venous distension noted. Abdomen: Soft, non-tender, non-distended. Normal appearance. Extremities: Normal, atraumatic, no cyanosis or edema. No ulcers. Musculoskeletal: Normal range of motion. Gait is normal Pulses: 2+ radial pulses. Skin: Skin color, texture, turgor normal. No rashes or lesions. Psychiatric: Mood, memory, affect and judgment are normal. Objective Findings Labs No results found for: COMPMETAPNL No components found for: BASICMETAPNL No results found for: WBC , HGB , HCT , PLATELET , RBC , MCV , MCH , MCHC , RDW , MPV No results found for: AST , ALT No results found for: PTT , INR No results found for: BNP No results found for: NTPRONBP No results found for: TSHRFT4 [facility] Labs: 02/2024: A1c 7.3% Lipid Panel: TC 209, LDL 107, HDL 43, TG 294 CMP: Na 139, K 3.7, Cl 108, CO2 21, BUN 52, Cr 2.89. LFTs normal. CBC: WBC 8.8, Hgb 12.2, Plts 265 Testing ECG (10/2023): (personally reviewed).NSR, RAD, RV strain pattern. Pulmonary Function Test Date FVC (%) FEV-1 (%) FEV1/FVC TLC DLCO Comments 02/2024 90 89 99 82 70 / 81 Normal PFT Radiology Study/ Location Date Findings CXR HRCT 09/2023 Subtle GGO c/f bronchiolitis, other reports on possible COPD CT Angiogram V/Q scan 09/2023 Low probability PE - repeat pending CMR Cardiac ischemia studies Test Date Results Stress Cath Echocardiograms Date TR RVSP TAPSE - FAC - S' RV LA/RA LV Comments PAH Meds 10/2023 Mod 59 1.1 Severe dilation and decreased function KEVIN LVEF 50%, severe LVH, RV pressure overload Summers sign, +bubble study 01/2024 Mild to mod 46 Nl size/function Nl/Nl 55-60%, mild LVH,G1DD +PFO by color doppler Right Heart Catheterization Date RA PA (s/d/m) PCWP/ LVEDP PVR (Wood) Cardiac Output (TD/F) Cardiac Index (TD/F) TPG/ DPG Comments PAH Meds Six Minute Walk Date Distance O2 O2 sat (pre/post) Dean Notes 03/03/24 1500 ft RA 95/91 Negative sleep apnea study - 02/2024. Other Pertinent Studies: DVU scan 10/2023: DVT in R popliteal vein, DVT in R peroneal vein and tibioperoneal trunck. Normal on Left Assessment and Plan To place all this in perspective, Ja Tavera is a 63 y.o. female with a past medical history significant for prior renal transplant 2006 c/b CKD IV (Cr 2.1-2.4), T2DM, HTN, bladder cancer on chemotherapy, and saddle pulmonary embolism in 10/2023 s/p mechanical thrombectomy for management who presents today to establish care in pulmonary hypertension clinic. Pulmonary Embolism s/p Mechanical Thrombectomy: Patient with unprovoked (likely related to malignancy) pulmonary embolism in 10/2023 s/p thrombectomy. Initially PE c/b hypoxic respiratory failure with some component of hypoxia related to right to left shunt from PFO. Patient also with RVSP of 59 with severe RV dilation and dysfunction. Last TTE 01/2024 with normalization of RV size and function with RVSP of 46 mmHg. Symptoms improved with some residual mild dyspnea at this time. Agree with future V/Q scan and echocardiogram as ordered by local provider for further evaluation. Would not recommend further evaluation with RHC at this time. Agree with life long anticoagulation for management of pulmonary embolism. Consider local pulmonary rehab referral. Depending on repeat V/Q scan and echocardiogram will plan for follow up as needed. Pulmonary Hypertension: Last TTE 01/2024 with normalization of RV size and function with persistent mild RVSP elevation at 46 mmHg. Residual pulmonary hypertension likely multi-factorial but suspect primarily driven by group 2 disease in the setting of HTN/T2DM and renal disease. Hypoxia now resolved and off oxygen. PFTs normal. Sleep study normal. Appears euvolemic on exam today. BP above goal. Advised patient work with local provider to optimize blood pressure control for management. Atrial Level Shunt: Patient with evidence of atria level shunt on last two echocardiograms. Highest suspicion for PFO given lack of chronic RA/RV dilation that would be more suggestive of ASD. No indication for closure of PFO in the setting of PE in the absence of stroke and patient now on systemic anticoagulation. Re-evaluate RA/RV size on follow up echocardiogram. If dilated could consider further imaging to evaluate for ASD given large shunt seen at time of PE. Heather Sanchez Chassis Mechanic Cardiovascular Medicine Heart Failure and Transplant Medicine [facility] [id number] Patient Education Patient education regarding the following topic(s) was provided on 03/29/2024: Plan: No changes to medications Plan for diagnostic testing as ordered by your local provider with V/Q scan and echocardiogram in the future. If there is ongoing concerns for chronic clot or worsening pulmonary hypertension on repeat studies please have your local physician reach out to us. Would recommend discussing pulmonary rehab with your local provider. Will schedule follow up as needed at this time. Those in attendance for the education included: patient and spouse. Barriers in providing the education included: none. The following methods were used in providing the education: explanation. [facility] handouts given included: After visit summary. The response of those in attendance was: states/identifies education topic. The following Clinical Intervention(s) occurred during today s visit: Extensive teaching provided to patient and or support team regarding plan of care. Plan: No changes to medications Plan for diagnostic testing as ordered by your local provider with V/Q scan and echocardiogram in the future. If there is ongoing concerns for chronic clot or worsening pulmonary hypertension on repeat studies please have your local physician reach out to us. Would recommend discussing pulmonary rehab with your local provider. Will schedule follow up as needed at this time. documented in this encounter [facility] 03-29-2024 Instructions Heather Sanchez MD - 03/29/2024 12:30 PM EST Plan: No changes to medications Plan for diagnostic testing as ordered by your local provider with V/Q scan and echocardiogram in the future. If there is ongoing concerns for chronic clot or worsening pulmonary hypertension on repeat studies please have your local physician reach out to us. Would recommend discussing pulmonary rehab with your local provider. Will schedule follow up as needed at this time. Thank you for choosing [facility] for your cardiac care. If questions or concerns regarding your visit or treatment plan, please call: Test results are reviewed at the time of your office visit. If additional testing ordered, it may take 1-2 weeks for physician review and recommendations. Abnormal results are prioritized and only abnormal results will be called to you. Holter/Event Monitors require at least 2 weeks from when you drop off your monitor, for physicians to review. Abnormal results are prioritized first. Notification may be a letter, MyChart message or phone call. If you have not received your monitor in the mail when expected, please call the Device Office [phone]. For any questions/problems with your monitor please call the [phone] number listed on monitor/mailing contents Outside bloodwork needs faxed to our office for physician review at [phone]. Kids Calendar is an available tool to securely access your online medical information and communicate with your healthcare team members - please ask to enroll during any [facility] appointment. If you experience a change in your symptoms, please notify this office immediately or call [phone] if an emergent situation. All calls are prioritized and responses researched, if possible, prior to calls being returned. Please leave your name, date of and question or concern on my voicemail. Calls are reviewed/answered M-F 8am to 4:00pm - with the exception of holidays when offices are closed. If after hours or weekend concerns, please call [phone]). Please allow 24 hours for your call to be answered. [facility] patient testing and procedure instructions may be obtained at [email or web address] For questions or concerns please contact: Kenzie Pineda RN or Lashell Ceron RN for PH concerns or questions about your specific medications Debbie Bush RN opt 6; opt 4 for general questions/concerns Join our very active and informative support group co-lead by Eliana Hansen, patient and Head Well Puller, Kenzie Pineda RN. We encourage any patient, family member, caregiver, or friend to receive support from others sharing the same diagnosis of PH. ANNUAL PLANNING MEETING AND A REFRESHER ABOUT PAH Come tell us what topics you would like discussed this year and learn more about PAH MARCH 31, 2024 AT 6:30 PM [facility] [address] [place], [place] [address] Please RSVP by March 24 to [email or web address] or [email or web address] documented in this encounter [facility] 02-26-2024 Note [facility] 02-26-2024 Note [facility] 01-29-2024 Note [facility] 12-25-2023 Note [facility] 12-15-2023 History of Present illness Narrative [...] I do not have the result in [place]. HPI: 07/2023 New patient sent from Dr. [...] PO) 1 tablet, Daily RT glucose blood (TivixTouch Verio) test strip 1 each, 3 times [...] Arthritis CKD (chronic kidney disease), stage IV ([facility]) Current chronic use of systemic steroids GERD (gastroesophageal reflux disease) HTN (hypertension) ([facility]) Hyperuricemia Hypomagnesemia Hypothyroidism ([facility]) Kidney transplant status ([facility]) detention (current) use of insulin ([facility]) Mixed hyperlipidemia ([facility]) Type 2 diabetes mellitus with hyperglycemia ([facility]) Vitamin D deficiency Past Surgical History: Procedure [...] hyperglycemia, with long-term current use of insulin ([facility]) - POCT glucose manually resulted Will c/o lantus 56, Humalog 10 units dinner, Tradjenta 5 mg once a day. Insulin long-term use ([facility]) Hyperlipemia, mixed ([facility]) Encounter for dietary consultation Diet and exercise reviewed with the patient Vitamin D deficiency Acquired hypothyroidism (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) Follow up in about 6 months (around 06/14/2024). documented in this encounter [facility] 12-11-2023 Note [facility] 12-11-2023 Note [facility] 11-16-2023 History of Present illness Narrative [...] haplotype matched living donor kidney transplant at [facility] in 2006, baseline creatinine 2.5-2.7. Is being maintained on prednisone tacrolimus and everolimus. Prior to that was on MMF however she developed bladder cancer in June 2020 and was switched over to everolimus. She been following up with [facility] urology for bladder cancer and has been cancer free also continues to receive local chemotherapy. Came to [facility] hospital in September with shortness of breath. Thought to have a lingular pneumonia. VQ scan was negative at that time. Placed on antibiotics and discharged home. Dyspnea did not improve came back to the hospital at this time to [facility]. Echocardiogram showed right ventricular strain. Found [...] skin daily Injection Device for Insulin (INPEN [id number]) KURT, 10 Units by Does not apply [...] tablet, Take 1 tablet by mouth daily [place]-3 Fatty Acids (OMEGA-3 FISH OIL) 1000 MG [...] living donor kidney transplant in 2006 at [facility] being maintained on prednisone tacrolimus and everolimus 4. Acute PE status post mechanical thrombectomy 5. Bladder cancer follows up with [facility] urology 6. Metabolic acidosis Plan: 1. Start oral sodium bicarbonate 650 twice a day 2. Continue same dose of everolimus tacrolimus and prednisone 3. Stable for discharge from nephrology standpoint 4. Outpatient follow-up with her primary network development coordinator Dr. Kan/Cely 5. Anticoagulation per primary service [...] prednisone) of. Patient was recently hospitalized at [facility] with worsening shortness of breath. Patient was [...] , POCPCO2 , POCPO2 , POCHCO3 , [id number] in the last 72 hours. COMPLETE BLOOD [...] Bladder cancer (HCC) DENIZ (acute kidney injury) ([facility]) NSTEMI (non-ST elevated myocardial infarction) ([facility]) Elevated d-dimer Leukocytosis Shortness of breath Pneumonia of both lungs due to infectious organism Biventricular congestive heart failure (HCC) Aortic atherosclerosis (HCC) Hypoglycemia Pericardial effusion Severe pulmonary hypertension (HCC) Cor pulmonale ([facility]) Metabolic acidosis Arterial hypotension Pulmonary embolus ([facility]) Debility CKD (chronic kidney disease) stage 4, GFR 15-29 ml/min ([facility]) ASSESSMENT: Acute hypoxic respiratory failure, Acute PE with cor pulmonale - post mechanical thrombectomy CAP Right peroneal vein DVT Positive bubble study with agitated saline, suggestive intra-atrial stenting Mild pericardial effusion Acute kidney injury History of renal transplant; on immunosuppressive therapy Recent hospitalization at [facility] for pneumonia Essential hypertension Diabetes mellitus Obesity [...] O2 patient was recently in yesterday of [place] and she was discharged on home O2 she will continue to need home O2 because of hypoxia and pulmonary hypertension and severe RV dilatation. Okay to discharge from pulmonary standpoint Discussed with primary service. Please note that this chart was generated using voice recognition [employer] dictation software. Although every effort was made to ensure the accuracy of this automated elementary school tutor, some errors in elementary school tutor may have occurred. Rober Alegria MD 11/16/2023 12:14 PM Images from the original note were not included. PULMONARY & CRITICAL CARE MEDICINE PROGRESS NOTE Patient: Ja Taevra Admit date: 11/08/2023 Primary Care Physician: Alejandro Villagran MD CODE Status: Full Code LOS: 7 SUBJECTIVE CHIEF COMPLAINT/REASON FOR CONSULT: No chief complaint on file. HISTORY OF PRESENT ILLNESS: The patient is a 63 y.o. female with history of diabetes, hypertension, bladder cancer, renal failure, s/p renal transplant; on immunosuppressive therapy (tacrolimus, everolimus and prednisone) of. Patient was recently hospitalized at [facility] with worsening shortness of breath. Patient was [...] , POCPCO2 , POCPO2 , POCHCO3 , [id number] in the last 72 hours. COMPLETE BLOOD [...] (HCC) Metabolic acidosis Arterial hypotension Pulmonary embolus ([facility]) Debility CKD (chronic kidney disease) stage 4, GFR 15-29 ml/min ([facility]) ASSESSMENT: Acute hypoxic respiratory failure, Acute PE with cor pulmonale - post mechanical thrombectomy CAP Right peroneal vein DVT Positive bubble study with agitated saline, suggestive intra-atrial stenting Mild pericardial effusion Acute kidney injury History of renal transplant; on immunosuppressive therapy Recent hospitalization at [facility] for pneumonia Essential hypertension Diabetes mellitus Obesity [...] from the original note were not included. [facility] Office: [phone] Tonny Boyle DO, Henri Martin DO, Jarred Peña DO, Paras Shankar DO, Curtis Sprague MD, Samia Allen MD, Denise Oneal MD, Fatou Robb MD, Juvencio Chacon MD, Melany Sherman MD, Todd Boyle MD, Lashaun Womack DO, Sandy Ma MD, Reilly Miller MD, Brigido Boyle DO, Kaylee Watson MD, Kendell Patterson DO, Alpa Kennedy MD, Venessa Jones MD, Elba Garcias MD, Sandra Turner MD, Jarvis Herbert MD, Netta Wall MD, Sue Spencer MD, William [facility] MD, Harsh Contreras MD, Dara Mitchell MD, Alejandro Arroyo DO, Douglas Ware DO, Bora Ashton DO, Maikel Varma MD, Cindy Daley, CUSTOMER SERVICES MANAGER, Mireille Jaeger, CUSTOMER SERVICES MANAGER, Alejandro Aly, CUSTOMER SERVICES MANAGER, Lynn Reyes, DNP, Marilyn Aldana, CUSTOMER SERVICES MANAGER, Yessi Choi, CUSTOMER SERVICES MANAGER, Magalys Bartlett, CUSTOMER SERVICES MANAGER, Saba Skelton, CUSTOMER SERVICES MANAGER, aLshell Fall, PA-C, Lizzie Estes, PA-C, Sena Patton, CUSTOMER SERVICES MANAGER, Iker Car, CUSTOMER SERVICES MANAGER, Estee Cueto, CUSTOMER SERVICES MANAGER, Bonnie Bush, CUSTOMER SERVICES MANAGER, Carine Kwan, CUSTOMER SERVICES MANAGER, Oksana Perez, FIELD ARTILLERY OPERATIONS MAN, Merlene Castro, CUSTOMER SERVICES MANAGER, Lilliam Conte, CUSTOMER SERVICES MANAGER, Krystal Howard, CUSTOMER SERVICES MANAGER [facility] IN-PATIENT SERVICE [facility] Progress Note 11/15/2023 11:00 AM Name: Ja Tavera Acct: [id number] Room: 0422/0422-02 IP Day: 7 Admit Date: 11/08/2023 7:47 PM PCP: Alejandro Villagran MD Code Status: Full Code Subjective: Patient was seen and examined in no acute distress, was on 4 L nasal cannula at time of my evaluation and will wean off as tolerated No acute event overnight Lab vital sign consult note reviewed Discussed with certified nurse aide planning pending PT-OT evaluation and if okay with other services Brief History: 61-year-old female presented to the hospital for evaluation of shortness of breath and concerns for pulmonary embolism. Patient was recently discharged from [facility] where she was treated for pneumonia after [...] , CRP , INR , DDIMER , [id number] , LABABSO in the last 72 hours. [...] 06:22 AM NBEA 1.7 11/09/2023 06:22 AM [id number] 97.1 11/09/2023 06:22 AM FIO2 INFORMATION NOT [...] POA * (Principal) Acute hypoxic respiratory failure ([facility]) 11/08/2023 Yes Immunosuppression ([facility]) 11/08/2023 Yes Hypertension 11/08/2023 Yes History of renal transplant 11/08/2023 Yes Diabetes mellitus ([facility]) 11/08/2023 Yes Bladder cancer ([facility]) 11/08/2023 Yes DENIZ (acute kidney injury) ([facility]) 11/08/2023 Yes NSTEMI (non-ST elevated myocardial infarction) ([facility]) 11/08/2023 Yes Elevated d-dimer 11/08/2023 Yes Leukocytosis 11/08/2023 Yes Shortness of breath 11/09/2023 Yes Pneumonia of both lungs due to infectious organism 11/09/2023 Yes Biventricular congestive heart failure ([facility]) 11/09/2023 Yes Aortic atherosclerosis ([facility]) 11/09/2023 Yes Hypoglycemia 11/09/2023 Yes Pericardial effusion 11/09/2023 Yes Severe pulmonary hypertension ([facility]) 11/11/2023 Yes Cor pulmonale ([facility]) 11/09/2023 Yes Metabolic acidosis 11/09/2023 Yes Arterial hypotension 11/09/2023 Yes Pulmonary embolus (HCC) 11/10/2023 Yes Debility 11/13/2023 Yes CKD (chronic kidney disease) stage 4, GFR 15-29 ml/min (HCC) 11/13/2023 Yes Plan: Acute hypoxic respiratory failure [...] Note Patient: Ja Tavera; 63 y.o. Location: 0422/0422-02 Attending: William Mcknight* Admit Date: 11/08/2023 Hospital Day: 7 Subjective Known history of ESRD from recurrent UTIs as a child and right nephrectomy as a child, status post 2 haplotype matched living donor kidney transplant at [facility] in 2006, baseline creatinine 2.5-2.7. Is being maintained on prednisone tacrolimus and everolimus. Prior to that was on MMF however she developed bladder cancer in June 2020 and was switched over to everolimus. She been following up with [facility] urology for bladder cancer and has been cancer free also continues to receive local chemotherapy. Came to [facility] hospital in September with shortness of breath. Thought to have a lingular pneumonia. VQ scan was negative at that time. Placed on antibiotics and discharged home. Dyspnea did not improve came back to the hospital at this time to [facility]. Echocardiogram showed right ventricular strain. Found to [...] donor donor kidney transplant in 2006 at [facility] being maintained on prednisone tacrolimus and everolimus [...] with any questions. Lynn Reyes APRN - REPRESENTATIVE GOVERNMENT RELATIONS [facility]. Attending Physician Statement I have discussed the care of this patient, including pertinent history and exam findings, with the Resident/CUSTOMER SERVICES MANAGER. I have seen and examined the patient myself. I have reviewed and edited the [place] elements of all parts of the encounter with the Resident/CUSTOMER SERVICES MANAGER. I agree with the assessment, plan and orders as documented by the Resident/CUSTOMER SERVICES MANAGER. In addition patient was seen and examined. No new issues reported overnight. Continue current immunosuppressants. Monitor strict I's and O's and renal function. Okay to discharge from nephrology standpoint. Lauro Sprague MD [facility] This note is created with the assistance of a speech-recognition program. While intending to generate a document that actually reflects the content of the visit, no guarantees can be provided that every mistake has been identified and corrected by editing. Images from the original note were not included. [facility] Office: [phone] Tonny Boyle DO, Henri Martin DO, Jarred Peña DO, Paras Shankar DO, Curtis Sprague MD, Samia Allen MD, Denise Onela MD, Fatou Robb MD, Juvencio Chacon MD, Melany Sherman MD, Todd Boyle MD, Lashaun Womack DO, Sandy Ma MD, Reilly Miller MD, Brigido Boyle DO, Kaylee Watson MD, Kendell Patterson DO, Alpa Kennedy MD, Venessa Jones MD, Elba Garcias MD, Sandra Turner MD, Jarvis Herbert MD, Netta Wall MD, Sue Spencer MD, William Mcknight MD, Harsh Contreras MD, Dara Mitchell MD, Alejandro Arroyo DO, Douglas Ware DO, Bora Ashton DO, Maikel Varma MD, Cindy Daley, CUSTOMER SERVICES MANAGER, Mireille Jaeger, CUSTOMER SERVICES MANAGER, Alejandro Aly, CUSTOMER SERVICES MANAGER, Lynn Reyes, [facility], Marilyn Aldana, CUSTOMER SERVICES MANAGER, Yessi Choi, CUSTOMER SERVICES MANAGER, Magalys Bartlett, CUSTOMER SERVICES MANAGER, Saba Skelton, CUSTOMER SERVICES MANAGER, Lashell Fall, PAWendieC, Lizzie Estes, PAWendieC, Sena Patton, CUSTOMER SERVICES MANAGER, Iker Car, CUSTOMER SERVICES MANAGER, Estee Cueto, CUSTOMER SERVICES MANAGER, Bonnie Bush, CUSTOMER SERVICES MANAGER, Carine Kwan, CUSTOMER SERVICES MANAGER, Oksana Perez, [facility], Merlene Castro, CUSTOMER SERVICES MANAGER, Lilliam Conte, CUSTOMER SERVICES MANAGER, Krystal Howard, CUSTOMER SERVICES MANAGER [facility] IN-PATIENT SERVICE [facility] Progress Note 11/14/2023 2:55 PM Name: Ja Tavera Acct: [id number] Room: [facility] Day: 6 Admit Date: 11/08/2023 7:47 PM [...] pulmonary embolism. Patient was recently discharged from [facility] where she was treated for pneumonia after [...] F (37 C) Recent Labs 11/13/23 1633 11/13/23 2030 11/14/23 0808 11/14/23 1226 POCGLU 286* 270* 176* [...] Labs 11/13/23 0835 11/13/23 1220 11/13/23 1633 11/13/23 2030 11/14/23 0808 11/14/23 1226 POCGLU 139* 276* 286* 270* 176* 275* ABG: Lab Results Component Value Date/Time POCPH 7.458 11/09/2023 06:22 AM POCPCO2 29.6 11/09/2023 06:22 AM POCPO2 84.8 11/09/2023 06:22 AM POCHCO3 21.0 11/09/2023 06:22 AM NBEA 1.7 11/09/2023 06:22 AM UASB0IPA 97.1 11/09/2023 06:22 AM FIO2 INFORMATION NOT [...] 11/08/2023 Yes NSTEMI (non-ST elevated myocardial infarction) ([facility]) 11/08/2023 Yes Elevated d-dimer 11/08/2023 Yes Leukocytosis 11/08/2023 Yes Shortness of breath 11/09/2023 Yes Pneumonia of both lungs due to infectious organism 11/09/2023 Yes Biventricular congestive heart failure (HCC) 11/09/2023 Yes Aortic atherosclerosis ([facility]) 11/09/2023 Yes Hypoglycemia 11/09/2023 Yes Pericardial effusion 11/09/2023 Yes Severe pulmonary hypertension (HCC) 11/11/2023 Yes Cor pulmonale (HCC) 11/09/2023 Yes Metabolic acidosis 11/09/2023 Yes Arterial hypotension 11/09/2023 Yes Pulmonary embolus (HCC) 11/10/2023 Yes Debility 11/13/2023 Yes CKD (chronic kidney disease) stage 4, GFR 15-29 ml/min ([facility]) 11/13/2023 Yes Plan: Acute hypoxic respiratory failure [...] okay off antibiotics tomorrow Infection Control Recommendations: [place] precaution Discharge Planning: Estimated Length of IV [...] INITIAL HISTORY: Patient was originally seen at [facility] for progressive worsening shortness of breath. Her [...] with pulmonary disease. Patient was transferred to [facility] for further management. Patient is currently [...] 11/09/2023 07:45 AM No results for input(s): [facility] in the last 72 hours. Imaging Studies: No new imaging Cultures: Culture and Sensitivities: No results for input(s): SPECDESC , SPECIAL , CULTURE , STATUS , ORG , CDIFFTOXPCR , CAMPYLOBPCR , SALMONELLAPC , SHIGAPCR , SHIGELLAPCR in the last 72 hours. Procedure Component Value Units Date/Time Culture, Blood 1 [[id number]] Collected: 11/08/232204 Order Status: Completed Specimen: Blood Updated: 11/14/2343 Specimen Description .BLOOD Special Requests R ARM 1ML Culture NO GROWTH 5 DAYS Culture, Blood 2 [[id number]] Collected: 11/08/232199 Order Status: Completed Specimen: Blood Updated: 11/14/23 003 Specimen Description .BLOOD Special Requests R HAND 6ML Culture NO GROWTH 5 DAYS MRSA DNA Probe, Nasal [[id number]] Collected: 11/09/2345 Order Status: Completed Specimen: Nasal Updated: 11/10/2349 Specimen Description .NASAL SWAB MRSA, DNA, Nasal NEGATIVE Comment: NEGATIVE: MRSA DNA not detected by nucleic acid amplification. Results should be used as an adjunct to nosocomial control efforts to identify patients needing enhanced precautions. The test is not intended to identify patients with staphylococcal infections. Results should not be used to guide or monitor treatment for MRSA infections. Infectious Disease Intervention [[id number]] Order Status: Sent LEGIONELLA ANTIGEN, URINE [[id number]] Collected: 11/08/232314 Order Status: Completed Specimen: Urine Updated: 11/09/23 1027 Legionella Pneumophilia Ag, Urine NEGATIVE Comment: L. pneumophila serogroup 1 antigen not detected. A negative result does not exclude infection with Leginella pnemophila serogroup 1 nor does it rule out other microbial-caused respiratory infections of disease caused by other serogroups of Legionella pneumophila. Strep Pneumoniae Antigen [[id number]] Collected: 11/08/2305 Order Status: Completed Specimen: Urine-clean catch from Urine, clean catch Updated: 11/09/23 1027 Source .URINE Strep pneumo Ag NEGATIVE Comment: Strep pneumoniae antigen not detected Respiratory Panel, Molecular, with COVID-19 (Restricted: peds pts or suitable admitted adults) [[id number]] Collected: 11/09/2345 Order Status: Completed Specimen: Nasopharyngeal [...] by multiplexed nucleic acid assay. Culture, Respiratory [[id number]] Order Status: No result Specimen: Sputum Expectorated [...] BID [facility] Jerrica Riggs MD [facility] OFFICE: Thank you for allowing us to [...] Note Patient: Ja Tavera; 63 y.o. Location: 042/0422-02 Attending: William Mcknight* Admit Date: 11/08/2023 Hospital Day: 6 Subjective History reviewed Known history of ESRD from recurrent UTIs as a child and right nephrectomy as a child, status post 2 haplotype matched living donor kidney transplant at [facility] in 2006, baseline creatinine 2.5-2.7. Is being maintained on prednisone tacrolimus and everolimus. Prior to that was on MMF however she developed bladder cancer in June 2020 and was switched over to everolimus. She been following up with [facility] urology for bladder cancer and has been cancer free also continues to receive local chemotherapy. Came to [facility] hospital in September with shortness of breath. Thought to have a lingular pneumonia. VQ scan was negative at that time. Placed on antibiotics and discharged home. Dyspnea did not improve came back to the hospital at this time to [facility]. Echocardiogram showed right ventricular strain. Found [...] donor donor kidney transplant in 2006 at [facility] being maintained on prednisone tacrolimus and everolimus [...] with any questions. Lynn Reyes APRN - REPRESENTATIVE GOVERNMENT RELATIONS [facility]. Attending Physician Statement I have discussed the care of Ja Tavera, including pertinent history and exam findings, with the CUSTOMER SERVICES MANAGER. I have reviewed the [place] elements of all parts of the encounter with the CUSTOMER SERVICES MANAGER. I agree with the assessment, plan and orders as documented by the CUSTOMER SERVICES MANAGER Denys Vasquez MD MD, MRCP (), FACP 11/14/2023 3:00 PM [facility] Congestive Heart Failure Education note: Discussed 2000mg/day [...] prednisone) of. Patient was recently hospitalized at [facility] with worsening shortness of breath. Patient was [...] , POCPCO2 , POCPO2 , POCHCO3 , [id number] in the last 72 hours. COMPLETE BLOOD [...] Diagnosis Acute hypoxic respiratory failure (HCC) Immunosuppression ([facility]) Hypertension History of renal transplant Diabetes mellitus (HCC) Bladder cancer ([facility]) DENIZ (acute kidney injury) ([facility]) NSTEMI (non-ST elevated myocardial infarction) ([facility]) Elevated d-dimer Leukocytosis Shortness of breath Pneumonia of both lungs due to infectious organism Biventricular congestive heart failure ([facility]) Aortic atherosclerosis ([facility]) Hypoglycemia Pericardial effusion Severe pulmonary hypertension (HCC) Cor pulmonale ([facility]) Metabolic acidosis Arterial hypotension Pulmonary embolus ([facility]) Debility CKD (chronic kidney disease) stage 4, GFR 15-29 ml/min ([facility]) ASSESSMENT: Acute hypoxic respiratory failure, Acute PE with cor pulmonale - post mechanical thrombectomy CAP Right peroneal vein DVT Positive bubble study with agitated saline, suggestive intra-atrial stenting Mild pericardial effusion Acute kidney injury History of renal transplant; on immunosuppressive therapy Recent hospitalization at [facility] for pneumonia Essential hypertension Diabetes mellitus Obesity [...] this chart was generated using voice recognition [employer] dictation software. Although every effort was made to ensure the accuracy of this automated elementary school tutor, some errors in elementary school tutor may have occurred. Images from the original note were not included. Division of Vascular Surgery Progress Note Name: Ja Tavera Overnight Events: No acute events overnight Hospital Summary 11/09: Patient is a 63-year-old woman who was transferred to [facility] on 11/07 from OSH with shortness of breath. She was discharged from [facility] on 08/30 after 5-day hospital stay where workup for [...] reach out with questions or concerns Alejandro Bowers DO General Surgery, PGY-1 Images from the [...] prednisone) of. Patient was recently hospitalized at [facility] with worsening shortness of breath. Patient was [...] sodium chloride sodium chloride dextrose INPUT/OUTPUT: In: 2270 [I.V.:2270] Out: 2750 [Urine:2750] Date 11/13/23 0000 - 11/13/23 2359 Shift [id number] 1327-9657 4399-2467 24 Hour Total INTAKE I.V.(mL/kg) 557.6(7.1) 509.6(6.5) 1067.2(13.6) Shift Total(mL/kg) 557.6(7.1) 509.6(6.5) 1067.2(13.6) OUTPUT Urine(mL/kg/hr) 1200(1.9) 800 2000 Shift Total(mL/kg) 1200(15.3) 800(10.2) 2000(25.5) Weight (kg) 78.4 78.4 78.4 78.4 LABORATORY RESULTS: BLOOD GASES: No results for input(s): POCPH , POCPCO2 , POCPO2 , POCHCO3 , ININ7DSO in the last 72 hours. COMPLETE BLOOD [...] hours. BASIC METABOLIC PROFILE: Recent Labs 11/11/23 0430 11/12/23 0549 11/13/23 [...] transplant; on immunosuppressive therapy Recent hospitalization at [facility] for pneumonia Essential hypertension Diabetes mellitus Obesity [...] from the original note were not included. [facility] Office: [phone] Tonny Boyle DO, Henri Martin DO, Jarred Peña, DO, Paras Shankar, DO, Curtis Sprague MD, Samia Allen MD, Denise Oneal MD, Fatou Robb MD, Juvencio Chacon MD, Melany Sherman MD, Todd Boyle MD, Lashaun Womack DO, Sandy Ma MD, Reilly Miller MD, Brigido Boyle DO, Kaylee Watson MD, Kendell Patterson DO, Alpa Kennedy MD, Venessa Jones MD, Elba Garcias MD, Sandra Turner MD, Jarvis Herbert MD, Netta Wall MD, Sue Spencer MD, William Mcknight MD, Harsh Contreras MD, Dara Mitchell MD, Alejandro Arroyo, DO, Douglas Ware DO, Bora Ashton, DO, Maikel Varma MD, Cindy Daley, CUSTOMER SERVICES MANAGER, Mireille Jaeger, CUSTOMER SERVICES MANAGER, Alejandro Aly, CUSTOMER SERVICES MANAGER, Lynn Reyes, DNP, Marilyn Aldana, CUSTOMER SERVICES MANAGER, Yessi Choi, CUSTOMER SERVICES MANAGER, Magalys Bartlett, CUSTOMER SERVICES MANAGER, Saba Skelton, CUSTOMER SERVICES MANAGER, Lashell Fall PAWendieC, Lizzie Estes PAWendieC, Sena Patton, CUSTOMER SERVICES MANAGER, Iker Car, CUSTOMER SERVICES MANAGER, Estee Cueto, CUSTOMER SERVICES MANAGER, Bonnie Bush, CUSTOMER SERVICES MANAGER, Carine Kwan, CUSTOMER SERVICES MANAGER, Oksana Perez, [employer] ARTILL[employer] OPERATIONS MAN, Merlene Castro, CUSTOMER SERVICES MANAGER, Lilliam Conte, CUSTOMER SERVICES MANAGER, Krystal Howard, CUSTOMER SERVICES MANAGER [facility] IN-PATIENT SERVICE [facility] Progress Note 11/13/2023 12:53 PM Name: Ja Tavera Acct: [id number] Room: [address] [place] [address] Day: 5 Admit Date: 11/08/2023 7:47 PM [...] pulmonary embolism. Patient was recently discharged from [facility] where she was treated for pneumonia after [...] C), Max:98.3 F (36.8 C) Recent Labs 11/12/23171811/12/23193111/13/23 0835 11/13/23 1220 POCGLU 311* 358* 139* [...] MPV 11.5 11.7 Chemistry: Recent Labs 11/11/23 04311/12/23 0549 11/13/23 0403 NA 138 138 137 K 4.3 4.0 4.0 CL 108* 106 103 CO2 20 17* 23 GLUCOSE 257* 232* 185* BUN 30* 27* 26* CREATININE 3.4* 3.2* 2.8* MG 2.0 2.0 2.0 ANIONGAP 10 15 11 LABGLOM 15* 16* 18* CALCIUM 7.6* 7.9* 8.0* Recent Labs 11/12/23 0951 11/12/23 1108 11/12/23171811/12/23193111/13/23 0835 11/13/23 1220 POCGLU 197* 178* 311* 358* 139* 276* ABG: Lab Results Component Value Date/Time POCPH 7.458 11/09/2023 06:22 AM POCPCO2 29.6 11/09/2023 06:22 AM POCPO2 84.8 11/09/2023 06:22 AM POCHCO3 21.0 11/09/2023 06:22 AM NBEA 1.7 11/09/2023 06:22 AM [id number] 97.1 11/09/2023 06:22 AM FIO2 INFORMATION NOT [...] hypoxic respiratory failure (HCC) 11/08/2023 Yes Immunosuppression ([facility]) 11/08/2023 Yes Hypertension 11/08/2023 Yes History of renal transplant 11/08/2023 Yes Diabetes mellitus (HCC) 11/08/2023 Yes Bladder cancer ([facility]) 11/08/2023 Yes DENIZ (acute kidney injury) ([facility]) 11/08/2023 Yes NSTEMI (non-ST elevated myocardial infarction) ([facility]) 11/08/2023 Yes Elevated d-dimer 11/08/2023 Yes Leukocytosis 11/08/2023 Yes Shortness of breath 11/09/2023 Yes Pneumonia of both lungs due to infectious organism 11/09/2023 Yes Biventricular congestive heart failure (HCC) 11/09/2023 Yes Aortic atherosclerosis ([facility]) 11/09/2023 Yes Hypoglycemia 11/09/2023 Yes Pericardial effusion [...] were not included. [facility] - Progress Note Today's Date and Time: [...] of films Radiologic studies Lab work ProBNP: 27277 Cultures Blood: No growth Large amounts of data were reviewed Recent admissions at [facility] and [place] [facility] Evaluated for SOB Found to have bronchiolitis by CT There was also concern for pulmonary consolidation Treated with ceftriaxone and azythromycin Subsequently seen at [facility] with worsening SOB Transferred to [facility] Cardiac cath scheduled on 11-10-23 Discussed with nursing Staff, vacation planner Dr Mcknight's service Infection Control and Prevention measures reviewed [place] precaution All prior entries were reviewed Administer medications as ordered Zosyn D/C Linezolid D/C Ceftriaxone 2 gm IV q 24 hr Prognosis: Guarded Discharge planning reviewed Follow up as outpatient. Eduardo Muhammad MD. 11/10/2023 Infection Control Recommendations [place] Precautions Antimicrobial Stewardship Recommendations Simplification of therapy [...] INITIAL HISTORY: Patient was originally seen at [facility] for progressive worsening shortness of breath. Her [...] with pulmonary disease. Patient was transferred to [facility] for further management. Patient is currently [...] ARTERY performed by Keron Ghosh MD at [facility] Medications: sodium bicarbonate 650 mg [...] Low Risk (10/19/2023) Received from [facility] Overall Financial Resource Strain (CARDIA) Difficulty [...] Stress Concern Present (10/19/2023) Received from [facility] [place] [facility] [employer] [facility] - Occupational Stress Questionnaire Feeling of Stress : Only a little Social Connections: Moderately Isolated (10/19/2023) Received from [facility] Social Connection and Isolation Panel [NHANES] Frequency of Communication with Friends and Family: More than three times a week Frequency of Social Gatherings with Friends and Family: More than three times a week Attends Religion Services: Never Active Member of Clubs or Organizations: No Attends Club or Organization Meetings: Never Marital Status: Intimate Partner Violence: Not At Risk (10/19/2023) Received from [facility] Humiliation, Afraid, Rape, and Kick questionnaire Fear [...] Image quality is technically difficult. Medical Decision Absmys-Hjsctqzv-Bzjca: Results Procedure Component Value Units Date/Time Infectious Disease Intervention [[id number]] Order Status: Sent Respiratory Panel, Molecular, with COVID-19 (Restricted: peds pts or suitable admitted adults) [[id number]] Collected: 11/09/23744 Order Status: Completed Specimen: Nasopharyngeal Swab Updated: 11/09/2308 Specimen Description .NASOPHARYNGEAL SWAB Adenovirus PCR Not [...] nucleic acid assay. MRSA DNA Probe, Nasal [[id number]] Collected: 11/09/23744 Order Status: Completed Specimen: Nasal Updated: 11/10/2349 Specimen Description .NASAL SWAB MRSA, DNA, Nasal NEGATIVE Comment: NEGATIVE: MRSA DNA not detected by nucleic acid amplification. Results should be used as an adjunct to nosocomial control efforts to identify patients needing enhanced precautions. The test is not intended to identify patients with staphylococcal infections. Results should not be used to guide or monitor treatment for MRSA infections. LEGIONELLA ANTIGEN, URINE [[id number]] Collected: 11/08/23 2315 Order Status: Completed Specimen: Urine Updated: 11/09/23 1027 Legionella Pneumophilia Ag, Urine NEGATIVE Comment: L. pneumophila serogroup 1 antigen not detected. A negative result does not exclude infection with Leginella pnemophila serogroup 1 nor does it rule out other microbial-caused respiratory infections of disease caused by other serogroups of Legionella pneumophila. Culture, Blood 1 [[id number]] Collected: 11/08/232204 Order Status: Completed Specimen: Blood Updated: 11/13/2337 Specimen Description .BLOOD Special Requests R ARM 1ML Culture NO GROWTH 4 DAYS Culture, Blood 2 [[id number]] Collected: 11/08/232199 Order Status: Completed Specimen: Blood Updated: 11/13/2331 Specimen Description .BLOOD Special Requests R HAND 6ML Culture NO GROWTH 4 DAYS Culture, Respiratory [[id number]] Order Status: No result Specimen: Sputum Expectorated Strep Pneumoniae Antigen [[id number]] Collected: 11/08/23 0805 Order Status: Completed Specimen: Urine-clean catch from Urine, clean catch Updated: 11/09/23 1027 Source .URINE Strep pneumo Ag NEGATIVE Comment: Strep pneumoniae antigen not detected Medical Decision Making-Other: Note: Thank you for allowing us to participate in the care of this patient. Please call with questions. Eduardo Muhammad MD Pager: [phone] Office: Physician Progress Note PATIENT: JA TAVERA CSN #: [id number] : 1960 ADMIT DATE: 11/08/2023 7:47 PM DISCH DATE: RESPONDING PROVIDER #: Zechariah Beatty DO QUERY TEXT: Patient admitted with Acute Respiratory failure. Noted documentation of both NSTEMI as well as Type 2 WY documented If possible, please document in progress [...] dated hospital problem list. Trops [id number], BNP [id number] Treatment: s/p medical thrombectomy. Heparin infusion Options provided: -- NSTEMI confirmed and Type 2 WY ruled out -- Type 2 WY confirmed and NSTEMI ruled out -- Other - I will add my own diagnosis -- Disagree - Not applicable / Not valid -- Disagree - Clinically unable to determine / Unknown -- Refer to Clinical Documentation Reviewer PROVIDER RESPONSE TEXT: After study, NSTEMI confirmed and Type 2 WY ruled out. Query created by: Faye Pearson on 11/13/2023 8:11 AM Electronically signed by: Zechariah Beatty DO 11/13/2023 11:08 AM Renal Progress Note Patient : Ja Tavera; 63 y.o. 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 Is being maintained on prednisone tacrolimus and everolimus. Prior to that was on MMF however she developed bladder cancer in June 2020 and was switched over to everolimus. She been following up with [facility] urology for bladder cancer and has been cancer free also continues to receive local chemotherapy. Came to [facility] hospital in September with shortness of breath. Thought to have a lingular pneumonia. VQ scan was negative at that time. Placed on antibiotics and discharged home. Dyspnea did not improve came back to the hospital at this time to [facility]. Echocardiogram showed right ventricular strain. Found [...] skin daily Injection Device for Insulin (INPEN 639-WCYW-JZLJXXR-FIASP) KURT, 10 Units by Does not apply [...] tablet, Take 1 tablet by mouth daily Auburn-3 Fatty Acids (OMEGA-3 FISH OIL) 1000 MG [...] donor donor kidney transplant in 2006 at [facility] being maintained on prednisone tacrolimus and everolimus [...] to follow along with you. Brenda Merlos, FAUSTO-CUSTOMER SERVICES MANAGER [facility] Attending Physician Statement I have discussed the care of Ja Tavera, including pertinent history and exam findings, with the CUSTOMER SERVICES MANAGER. I have reviewed the [place] elements of all parts of the encounter with the CUSTOMER SERVICES MANAGER. I agree with the assessment, plan and orders as documented by the CUSTOMER SERVICES MANAGER Denys Vasquez MD MD, MRCP (), FACP 11/13/2023 5:37 PM [facility] Images from the original note were not included. [facility] Office: [phone] Tonny Boyle DO, Henri Martin DO, Jarred Peña DO, Paras Shankar DO, Curtis Sprague MD, Samia Allen MD, Denise Oneal MD, Fatou Robb MD, Juvencio hCacon MD, Melany Sherman MD, Todd Boyle MD, Lashaun Womack DO, Sandy Ma MD, Reilly Miller MD, Brigido Boyle DO, Kaylee Watson MD, Kendell Patterson DO, Alpa Kennedy MD, Venessa Jones MD, Elba Garcias MD, Sandra Turner MD, Jarvis Herbert MD, Netta Wall MD, Sue Spencer MD, William Mcknight MD, Harsh Contreras MD, Dara Mitchell MD, Alejandro Arroyo DO, Douglas Ware DO, Bora Ashton DO, Maikel Varma MD, Cindy Daley CNP, Mireille Jaeger CNP, Alejandro Aly CNP, Lynn Reyes, KANDY, Marilyn Aldana, CUSTOMER SERVICES MANAGER, Yessi Choi, CUSTOMER SERVICES MANAGER, Magalys Bartlett, CUSTOMER SERVICES MANAGER, Saba Skelton, CUSTOMER SERVICES MANAGER, Lashell Fall PA-C, Lizzie Estes PA-C, Sena Patton, CUSTOMER SERVICES MANAGER, Iker Car, CUSTOMER SERVICES MANAGER, Estee Cueto, CUSTOMER SERVICES MANAGER, Bonnie Bush, CUSTOMER SERVICES MANAGER, Carine Kwan, CUSTOMER SERVICES MANAGER, Oksana Perez, [facility], Merlene Castro, CUSTOMER SERVICES MANAGER, Lilliam Conte, CUSTOMER SERVICES MANAGER, Krystal Howard, CUSTOMER SERVICES MANAGER [facility] IN-PATIENT SERVICE [facility] Progress Note 11/12/2023 1:41 PM Name: Ja Tavera Acct: [id number] Room: [facility]5/1025-01 Day: 4 Admit Date: 11/08/2023 7:47 PM [...] pulmonary embolism. Patient was recently discharged from [facility] where she was treated for pneumonia after [...] F (37 C) Recent Labs 11/11/23 1618 11/11/23 1942 11/12/23 0951 11/12/23 1108 POCGLU 247* 280* 197* 178* I/O (24Hr): Intake/Output Summary (Last 24 hours) at 11/12/2023 1341 Last data filed at 11/12/2023 1013 Gross per 24 hour Intake 1789.46 ml Output 250 ml Net 1539.46 ml Labs: Hematology: Recent Labs 11/10/23 0322 11/11/23 0430 11/12/23 0549 WBC 9.8 11.2 9.6 RBC 5.13* 4.38 3.91* HGB 14.2 12.1 11.0* HCT 44.9 39.1 36.3 MCV 87.5 89.3 92.8 MCH 27.7 27.6 28.1 MCHC 31.6 30.9 30.3 RDW 14.1 14.1 13.8 PLT See Reflexed IPF Result 91* 89* MPV -- 11.5 11.7 Chemistry: Recent Labs 11/10/23 0322 11/11/23 0430 11/12/23 0549 NA 139 138 138 K 3.7 4.3 4.0 CL 109* 108* 106 CO2 19* 20 17* GLUCOSE 64* 257* 232* BUN 28* 30* 27* CREATININE 3.5* 3.4* 3.2* MG 1.9 2.0 2.0 ANIONGAP 11 10 15 LABGLOM 14* 15* 16* CALCIUM 8.3* 7.6* 7.9* Recent Labs 11/11/23 0803 11/11/23 1158 11/11/23 1618 11/11/23 1942 11/12/23 0951 11/12/23 1108 POCGLU 189* 282* 247* 280* 197* 178* ABG: Lab Results Component Value Date/Time POCPH 7.458 11/09/2023 06:22 AM POCPCO2 29.6 11/09/2023 06:22 AM POCPO2 84.8 11/09/2023 06:22 AM POCHCO3 21.0 11/09/2023 06:22 AM NBEA 1.7 11/09/2023 06:22 AM XTZO1IHZ 97.1 11/09/2023 06:22 AM FIO2 INFORMATION NOT [...] POA * (Principal) Acute hypoxic respiratory failure ([facility]) 11/08/2023 Yes Immunosuppression ([facility]) 11/08/2023 Yes Hypertension 11/08/2023 Yes History of renal transplant 11/08/2023 Yes Diabetes mellitus ([facility]) 11/08/2023 Yes Bladder cancer ([facility]) 11/08/2023 Yes DENIZ (acute kidney injury) ([facility]) 11/08/2023 Yes NSTEMI (non-ST elevated myocardial infarction) ([facility]) 11/08/2023 Yes Elevated d-dimer 11/08/2023 Yes Leukocytosis 11/08/2023 Yes Shortness of breath 11/09/2023 Yes Pneumonia of both lungs due to infectious organism 11/09/2023 Yes Biventricular congestive heart failure ([facility]) 11/09/2023 Yes Aortic atherosclerosis ([facility]) 11/09/2023 Yes Hypoglycemia 11/09/2023 Yes Pericardial effusion 11/09/2023 Yes Severe pulmonary hypertension ([facility]) 11/11/2023 Yes Cor pulmonale ([facility]) 11/09/2023 Yes Metabolic acidosis 11/09/2023 Yes Arterial hypotension 11/09/2023 Yes Pulmonary embolus ([facility]) 11/10/2023 Yes Plan: Acute hypoxic respiratory failure [...] any concerns. Thank you. Joseph Dorado, PharmD, [facility] 11/12/2023 12:58 PM Images from the original [...] prednisone) of. Patient was recently hospitalized at [facility] with worsening shortness of breath. Patient was [...] 2398.5 [I.V.:2398.5] Out: 250 [Urine:250] Date 11/12/23 - 11/12/232358 Shift 2423-8889 3537-7298 9402-1725 24 Hour Total INTAKE I.V.(mL/kg) 1471.8(19.3) 317.7(4.2) 1789.5(23.4) Shift Total(mL/kg) 1471.8(19.3) 317.7(4.2) 1789.5(23.4) OUTPUT Shift Total(mL/kg) Weight (kg) 76.4 76.4 76.4 76.4 LABORATORY RESULTS: BLOOD GASES: No results for input(s): POCPH , POCPCO2 , POCPO2 , POCHCO3 , TRFU8LGW in the last 72 hours. COMPLETE BLOOD COUNTS: Recent Labs 11/10/2332111/11/23 0430 11/12/23 0549 WBC 9.8 11.2 9.6 [...] 72 hours. BASIC METABOLIC PROFILE: Recent Labs 11/10/2332111/11/23 0430 11/12/23 0549 NA [...] transplant; on immunosuppressive therapy Recent hospitalization at [facility] for pneumonia Essential hypertension Diabetes mellitus Obesity [...] can be extrapolated by contextual diversion. 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 Mode of Transportation: Car Occupation: Retired Type of Occupation: [employer] Leisure & Hobbies: watching [employer] play sports Additional Comments: Pt reports her [...] / ADL, Home management training, Endurance training AM-PAC Daily Activities Inpatient AM-PAC Daily Activity - Inpatient How much help [...] How much help for eating meals?: None AM-PAC Inpatient Daily Activity Raw Score: 20 AM-[facility] Inpatient ADL T-Scale Score : 42.03 ADL Inpatient CMS 0-100% Score: 38.32 ADL Inpatient CMS G-Code Modifier : CJ Minutes OT Individual Minutes Time In: 0910 Time Out: 0940 Minutes: 30 Time Code Minutes Timed Code Treatment Minutes: 23 Minutes Physical Therapy Facility/Department: [address] Physical Therapy Daily Treatment Note Name: Ja [...] recover SpO2 OutComes Score AM-PAC - Mobility AM-[facility] Basic Mobility - Inpatient How much help [...] climbing 3-5 steps with a railing?: Total AM-[facility] Inpatient Mobility Raw Score : 18 AM-[facility] Inpatient T-Scale Score : 43.63 Mobility Inpatient [...] from the original note were not included. [place] Exhibitions And Collections Manager Consult Note Today's Date: 11/12/2023 Patient Name: [...] 55 Units into the skin daily Yes ProviderPool MD Injection Device for Insulin (INPEN 605-LOUJ-GFHDCQZ-FIASP) KURT 10 Units by Does not apply [...] by mouth daily Yes Pool Nuñez MD Auburn-3 Fatty Acids (OMEGA-3 FISH OIL) 1000 MG [...] board Mild pericardial effusion Recent hospitalization at [facility] for pneumonia Essential hypertension Diabetes mellitus Obesity [...] for any acute questions Jesica Martinez MD [facility]; [place], [place] 11/12/2023, 8:57 AM Attending Adolescent Specialist Addendum: I have reviewed and performed the history, physical, subjective, objective, assessment, and plan with the student/resident/fellow/PRODUCT MARKETING COORDINATOR and agree with the note. I performed [...] have any questions. Zechariah Beatty DO, FACC, RPVI, ZAIN, LAILA [place] Exhibitions And Collections Manager [facility] Renal Progress Note Patient : Ja Tavera; 63 y.o. 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 Is being maintained on prednisone tacrolimus and everolimus. Prior to that was on MMF however she developed bladder cancer in June 2020 and was switched over to everolimus. She been following up with [facility] urology for bladder cancer and has been cancer free also continues to receive local chemotherapy. Came to [facility] hospital in September with shortness of breath. Thought to have a lingular pneumonia. VQ scan was negative at that time. Placed on antibiotics and discharged home. Dyspnea did not improve came back to the hospital at this time to [facility]. Echocardiogram showed right ventricular strain. Found [...] skin daily Injection Device for Insulin (INPEN 500-EFKU-PGJLFRD-FIASP) KURT, 10 Units by Does not apply [...] tablet, Take 1 tablet by mouth daily Auburn-3 Fatty Acids (OMEGA-3 FISH OIL) 1000 MG [...] 11.5 11.7 BMP: Recent Labs 11/09/23 1009 11/10/23 0322 11/11/23 0430 NA 139 139 138 K 4.2 3.7 4.3 CL 109* 109* 108* CO2 16* 19* 20 BUN 32* 28* 30* CREATININE 3.1* 3.5* 3.4* GLUCOSE 89 64* 257* CALCIUM 8.7 8.3* 7.6* Magnesium: Recent Labs 11/10/23 0322 11/11/23 0430 11/12/23 0549 MG 1.9 2.0 2.0 [...] donor donor kidney transplant in 2006 at [facility] being maintained on prednisone tacrolimus and everolimus [...] continue to follow along with you. Brenda Merlos APRN-CUSTOMER SERVICES MANAGER [facility] Patient seen with nurse practitioner Doing well [...] transplant from patient's brother in 2006 at [facility] currently on tacrolimus everolimus and prednisone 4. [...] were not included. [facility] - Progress Note Today's Date and Time: [...] of films Radiologic studies Lab work ProBNP: 54989 Cultures Blood: No growth Large amounts of data were reviewed Recent admissions at [facility] and [facility] Evaluated for SOB Found to have bronchiolitis by CT There was also concern for pulmonary consolidation Treated with ceftriaxone and azythromycin Subsequently seen at [facility] with worsening SOB Transferred to [facility] Cardiac cath scheduled on 11-10-23 Discussed with nursing Staff, vacation planner Dr Mcknight's service Infection Control and Prevention measures reviewed [place] precaution All prior entries were reviewed Administer medications as ordered Zosyn D/C Linezolid D/C Ceftriaxone 2 gm IV q 24 hr Prognosis: Guarded Discharge planning reviewed Follow up as outpatient. Eduardo Muhammad MD. 11/10/2023 Infection Control Recommendations [place] Precautions Antimicrobial Stewardship Recommendations Simplification of therapy [...] INITIAL HISTORY: Patient was originally seen at [facility] for progressive worsening shortness of breath. Her [...] with pulmonary disease. Patient was transferred to [facility] for further management. Patient is currently [...] ARTERY performed by Keron Ghosh MD at [facility]OR Medications: sodium chloride flush 5-40 [...] Strain: Low Risk (10/19/2023) Received from [facility] Overall Financial Resource Strain (CARDIA) Difficulty of [...] Stress Concern Present (10/19/2023) Received from [facility] [place] [facility] Occup[employer] [facility] - Occupational Stress Questionnaire Feeling of Stress : Only a little Social Connections: Moderately Isolated (10/19/2023) Received from [facility] Social Connection and Isolation Panel [NHANES] Frequency of Communication with Friends and Family: More than three times a week Frequency of Social Gatherings with Friends and Family: More than three times a week Attends Religion Services: Never Active Member of Clubs or Organizations: No Attends Club or Organization Meetings: Never Marital Status: Intimate Partner Violence: Not At Risk (10/19/2023) Received from [facility] Humiliation, Afraid, Rape, and Kick questionnaire Fear [...] labs: CBC with Differential: Recent Labs 11/11/23 04311/12/23 0549 WBC 11.2 9.6 HGB 12.1 11.0* [...] Image quality is technically difficult. Medical Decision Qavplw-Dwhxgjba-Hbnad: Results Procedure Component Value Units Date/Time Infectious Disease Intervention [[id number]] Order Status: Sent Respiratory Panel, Molecular, with COVID-19 (Restricted: peds pts or suitable admitted adults) [[id number]] Collected: 11/09/2345 Order Status: Completed Specimen: Nasopharyngeal [...] nucleic acid assay. MRSA DNA Probe, Nasal [[id number]] Collected: 11/09/2345 Order Status: Completed Specimen: Nasal [...] treatment for MRSA infections. LEGIONELLA ANTIGEN, URINE [[id number]] Collected: 11/08/23 2315 Order Status: Completed Specimen: Urine Updated: 11/09/23 1027 Legionella Pneumophilia Ag, Urine NEGATIVE Comment: L. pneumophila serogroup 1 antigen not detected. A negative result does not exclude infection with Leginella pnemophila serogroup 1 nor does it rule out other microbial-caused respiratory infections of disease caused by other serogroups of Legionella pneumophila. Culture, Blood 1 [[id number]] Collected: 11/08/23 2205 Order Status: Completed Specimen: Blood Updated: 11/12/23 0038 Specimen Description .BLOOD Special Requests R ARM 1ML Culture NO GROWTH 3 DAYS Culture, Blood 2 [[id number]] Collected: 11/08/23 2200 Order Status: Completed Specimen: Blood Updated: 11/12/23 0032 Specimen Description .BLOOD Special Requests R HAND 6ML Culture NO GROWTH 3 DAYS Culture, Respiratory [[id number]] Order Status: No result Specimen: Sputum Expectorated Strep Pneumoniae Antigen [[id number]] Collected: 11/08/23 0805 Order Status: Completed Specimen: Urine-clean catch from Urine, clean catch Updated: 11/09/23 1027 Source .URINE Strep pneumo Ag NEGATIVE Comment: Strep pneumoniae antigen not detected Medical Decision Making-Other: Note: Thank you for allowing us to participate in the care of this patient. Please call with questions. Eduardo Muhammad MD Pager: - Office: Renal Progress Note Patient : Ja Tavera; 63 y.o. Location: 1025/1025-01 Attending: William Mcknight* Admit Date: 11/08/2023 Hospital [...] donor kidney transplant from her brother at [facility] in 2006 according to her. Baseline creatinine 2.5-2.7. Is being maintained on prednisone tacrolimus and everolimus. Prior to that was on MMF however she developed bladder cancer in June 2020 and was switched over to everolimus. She been following up with [facility] urology for bladder cancer and has been cancer free also continues to receive local chemotherapy. [facility] with shortness of breath. Thought to have a lingular pneumonia. VQ scan was negative at that time. Placed on antibiotics and discharged home. Dyspnea did not improve came back to the hospital at this time to [facility]. Echocardiogram showed right ventricular strain. Found [...] skin daily Injection Device for Insulin (INPEN 877-RDPA-ELKZYLK-FIASP) KURT, 10 Units by Does not apply [...] tablet, Take 1 tablet by mouth daily Auburn-3 Fatty Acids (OMEGA-3 FISH OIL) 1000 MG [...] no calf tenderness. Labs: Recent Labs 11/09/23 04311/10/2332111/11/23429 WBC 10.2 9.8 11.2 RBC 5.37* 5.13* 4.38 HGB 14.9 14.2 12.1 HCT 46.8 44.9 39.1 MCV 87.2 87.5 89.3 MCH 27.7 27.7 27.6 MCHC 31.8 31.6 30.9 RDW 14.2 14.1 14.1 PLT See Reflexed IPF Result See Reflexed IPF Result 91* MPV -- -- 11.5 BMP: Recent Labs 11/09/23 1009 11/10/2332111/11/23429 NA 139 139 138 K 4.2 3.7 4.3 CL 109* 109* 108* CO2 16* 19* 20 BUN 32* 28* 30* CREATININE 3.1* 3.5* 3.4* GLUCOSE 89 64* 257* CALCIUM 8.7 8.3* 7.6* Phosphorus: No results for input(s): PHOS in the last 72 hours. Magnesium: Recent Labs 11/09/23 0439 11/10/2332111/11/23 043 MG 2.0 1.9 2.0 Albumin: No results [...] post donor kidney transplant in 2006 at [facility] being maintained on prednisone tacrolimus and everolimus [...] from the original note were not included. [facility] Office: [phone] Tonny Boyle DO, Henri Martin DO, Jarred Peña DO, Paras Shankar DO, Curtis Sprague MD, Samia Allen MD, Denise Oneal MD, Fatou Robb MD, Juvencio Chacon MD, Melany Sherman MD, Todd Boyle MD, Lashaun Womack DO, Sandy Ma MD, Reilly Miller MD, Brigido Boyle DO, Kaylee Watson MD, Kendell Patterson DO, Alpa Kennedy MD, Venessa Jones MD, Elba Garcias MD, Sandra Turner MD, Jarvis Herbert MD, Netta Wall MD, Sue Spencer MD, William Mcknight MD, Harsh Contreras MD, Dara Mitchell MD, Alejandro Arroyo DO, Douglas Ware DO, Bora Ashton DO, Maikel Varma MD, Cindy Daley CNP, Mireille Jaeger CUSTOMER SERVICES MANAGER, Alejandro Aly, CUSTOMER SERVICES MANAGER, Lynn Reyes, DNP, Marilyn Aldana, CUSTOMER SERVICES MANAGER, Yessi Choi, CUSTOMER SERVICES MANAGER, Magalys Bartlett, CUSTOMER SERVICES MANAGER, Saba Skelton, CUSTOMER SERVICES MANAGER, Lashell Fall, [facility], Lizzie Estes, [facility], Sena Patton, CUSTOMER SERVICES MANAGER, Iker Car, CUSTOMER SERVICES MANAGER, Estee Cueto, CUSTOMER SERVICES MANAGER, Bonnie Bush, CUSTOMER SERVICES MANAGER, Carine Kwan, CUSTOMER SERVICES MANAGER, Oksana Perez, [facility], Merlene Castro, CUSTOMER SERVICES MANAGER, Lilliam Conte, CUSTOMER SERVICES MANAGER, Krystal Howard, CUSTOMER SERVICES MANAGER [facility] IN-PATIENT SERVICE [facility] Progress Note 11/11/2023 2:10 PM Name: Ja Tavera Acct: [id number] Room: [facility] Day: 3 Admit Date: 11/08/2023 7:47 PM [...] pulmonary embolism. Patient was recently discharged from [facility] where she was treated for pneumonia after [...] Net 2807.18 ml Labs: Hematology: Recent Labs 11/08/23205811/09/2343811/09/23 1009 11/10/23 0322 11/11/23 0430 WBC 11.8* 10.2 -- 9.8 11.2 [...] -- -- -- Chemistry: Recent Labs 11/08/23205811/08/23220411/09/236 11/09/239 11/09/23 1009 11/09/23 1111 11/10/23 03211/11/23 0430 NA 142 -- [...] 11/09/23 0610 11/10/23 1118 11/10/23 1648 11/10/23 19511/10/23203311/11/23 0803 11/11/23 1158 TSH -- -- 0.03* [...] 06:22 AM NBEA 1.7 11/09/2023 06:22 AM CIDT8MCA 97.1 11/09/2023 06:22 AM FIO2 INFORMATION NOT [...] POA * (Principal) Acute hypoxic respiratory failure ([facility]) 11/08/2023 Yes Immunosuppression ([facility]) 11/08/2023 Yes Hypertension 11/08/2023 Yes History of renal transplant 11/08/2023 Yes Diabetes mellitus ([facility]) 11/08/2023 Yes Bladder cancer ([facility]) 11/08/2023 Yes DENIZ (acute kidney injury) ([facility]) 11/08/2023 Yes NSTEMI (non-ST elevated myocardial infarction) ([facility]) 11/08/2023 Yes Elevated d-dimer 11/08/2023 Yes Leukocytosis 11/08/2023 Yes Shortness of breath 11/09/2023 Yes Pneumonia of both lungs due to infectious organism 11/09/2023 Yes Biventricular congestive heart failure ([facility]) 11/09/2023 Yes Aortic atherosclerosis ([facility]) 11/09/2023 Yes Hypoglycemia 11/09/2023 Yes Pericardial effusion 11/09/2023 Yes Pulmonary hypertension ([facility]) 11/09/2023 Yes Cor pulmonale ([facility]) 11/09/2023 Yes Metabolic acidosis 11/09/2023 Yes Arterial hypotension 11/09/2023 Yes Pulmonary embolus ([facility]) 11/10/2023 Yes Plan: Acute hypoxic respiratory failure [...] MD 11/11/2023 2:10 PM Physical Therapy Facility/Department: [facility] CAR 1- SICU Physical Therapy Initial Assessment Name: Ja Tavera : 1960 Date of Service: 11/11/2023 Obtained from medical chart: 63-year-old female with past medical history of bladder cancer on IV chemotherapy monthly, hypertension, renal transplant 2006 on tacrolimus, everolimus and prednisone. Insulin-dependent diabetes mellitus type 2. 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 AM-PAC - Mobility AM-[facility] Basic Mobility - Inpatient How much help [...] climbing 3-5 steps with a railing?: Total [facility] Raw Score : 17 [facility] Inpatient T-Scale Score : 42.13 Mobility Inpatient CMS 0-100% Score: 50.57 Mobility Inpatient CMS G-Code Modifier : CK [...] Time Individual Concurrent Group Co-treatment Time In 0823 Time Out 0850 Minutes 27 Timed Code Treatment Minutes: 23 Minutes Devonte Villagomez PT Images from the original note were not included. [facility] - Progress Note Today's Date and Time: [...] of films Radiologic studies Lab work ProBNP: 65697 Cultures Blood: No growth Large amounts of data were reviewed Recent admissions at [facility] and [facility] Evaluated for SOB Found to have bronchiolitis by CT There was also concern for pulmonary consolidation Treated with ceftriaxone and azythromycin Subsequently seen at [facility] with worsening SOB Transferred to [facility] Cardiac cath scheduled on 11-10-23 Discussed with nursing Staff, vacation planner Dr Mcknight's service Infection Control and Prevention measures reviewed [place] precaution All prior entries were reviewed Administer medications as ordered Zosyn D/C Linezolid D/C Ceftriaxone 2 gm IV q 24 hr Prognosis: Guarded Discharge planning reviewed Follow up as outpatient. Eduardo Muhammad MD. 11/10/2023 Infection Control Recommendations [place] Precautions Antimicrobial Stewardship Recommendations Simplification of therapy [...] INITIAL HISTORY: Patient was originally seen at [facility] for progressive worsening shortness of breath. Her [...] with pulmonary disease. Patient was transferred to [facility] for further management. Patient is currently [...] Strain: Low Risk (10/19/2023) Received from [facility] Overall Financial Resource Strain (CARDIA) Difficulty of [...] Stress Concern Present (10/19/2023) Received from [facility] [place] [facility] - Occupational Stress Questionnaire Feeling of Stress : Only a little Social Connections: Moderately Isolated (10/19/2023) Received from [facility] Social Connection and Isolation Panel [NHANES] Frequency of Communication with Friends and Family: More than three times a week Frequency of Social Gatherings with Friends and Family: More than three times a week Attends Religion Services: Never Active Member of Clubs or Organizations: No Attends Club or Organization Meetings: Never Marital Status: Intimate Partner Violence: Not At Risk (10/19/2023) Received from [facility] Humiliation, Afraid, Rape, and Kick questionnaire Fear [...] 13* EOSPCT 2 1 BMP: Recent Labs 11/10/23 0322 09/18/24 0430 NA 139 138 K 3.7 4.3 CL [...] Image quality is technically difficult. Medical Decision Zcasvk-Bfarwgxs-Cchun: Results Procedure Component Value Units Date/Time Infectious Disease Intervention [[id number]] Order Status: Sent Respiratory Panel, Molecular, with COVID-19 (Restricted: peds pts or suitable admitted adults) [[id number]] Collected: 11/09/23744 Order Status: Completed Specimen: Nasopharyngeal [...] nucleic acid assay. MRSA DNA Probe, Nasal [[id number]] Collected: 11/09/23744 Order Status: Completed Specimen: Nasal Updated: 11/10/2349 Specimen Description .NASAL SWAB MRSA, DNA, Nasal NEGATIVE Comment: NEGATIVE: MRSA DNA not detected by nucleic acid amplification. Results should be used as an adjunct to nosocomial control efforts to identify patients needing enhanced precautions. The test is not intended to identify patients with staphylococcal infections. Results should not be used to guide or monitor treatment for MRSA infections. LEGIONELLA ANTIGEN, URINE [[id number]] Collected: 11/08/23 2315 Order Status: Completed Specimen: Urine Updated: 11/09/23 1027 Legionella Pneumophilia Ag, Urine NEGATIVE Comment: L. pneumophila serogroup 1 antigen not detected. A negative result does not exclude infection with Leginella pnemophila serogroup 1 nor does it rule out other microbial-caused respiratory infections of disease caused by other serogroups of Legionella pneumophila. Culture, Blood 1 [[id number]] Collected: 11/08/232204 Order Status: Completed Specimen: Blood Updated: 11/11/2337 Specimen Description .BLOOD Special Requests R ARM 1ML Culture NO GROWTH 2 DAYS Culture, Blood 2 [[id number]] Collected: 11/08/232199 Order Status: Completed Specimen: Blood Updated: 11/11/2331 Specimen Description .BLOOD Special Requests R HAND 6ML Culture NO GROWTH 2 DAYS Culture, Respiratory [[id number]] Order Status: No result Specimen: Sputum Expectorated Strep Pneumoniae Antigen [[id number]] Collected: 11/08/23 0805 Order Status: Completed Specimen: Urine-clean catch from Urine, clean catch Updated: 11/09/23 1027 Source .URINE Strep pneumo Ag NEGATIVE Comment: Strep pneumoniae antigen not detected Medical Decision Making-Other: Note: Thank you for allowing us to participate in the care of this patient. Please call with questions. Eduardo Muhammad MD Pager: - Office: Images from the original note were not included. [employer] Manager Consult Note Today's Date: 11/11/2023 Patient Name: [...] 2. Patient had a recent admission at [facility] for progressively worsening shortness of breath after [...] 55 Units into the skin daily Yes ProviderPool MD Injection Device for Insulin (INPEN [id number]-AVSY-CETTAEF-FIASP) KURT 10 Units by Does not apply [...] by mouth daily Yes Pool Nuñez MD [place]-3 Fatty Acids (OMEGA-3 FISH OIL) 1000 MG [...] behavior are noted Labs: CBC: Recent Labs 11/10/23 0322 11/11/23 0430 WBC 9.8 11.2 HGB 14.2 12.1 HCT 44.9 39.1 PLT See Reflexed IPF Result 91* BMP: Recent Labs 11/10/23 0322 11/11/23 0430 [...] stenting Mild pericardial effusion Recent hospitalization at [facility] for pneumonia Essential hypertension Diabetes mellitus Obesity [...] keep K>4 and Mag>2. Jesica Martinez MD [facility]; [place], [place] 11/11/2023, 6:45 AM Attending Physician Statement [...] With changes made to the note. . [employer] Manager [phone] . [employer] Manager [phone] Images from the original note were not included. [facility] - Initial Consult Note Today's Date and [...] of films Radiologic studies Lab work ProBNP: 18453 Cultures Blood: No growth Large amounts of data were reviewed Recent admissions at [facility] and [place] Evaluated for SOB Found to have bronchiolitis by CT There was also concern for pulmonary consolidation Treated with ceftriaxone and azythromycin Subsequently seen at [place] with worsening SOB Transferred to [facility] Cardiac cath scheduled on 11-10-23 Discussed with nursing Staff, vacation planner Dr Mcknight's service Infection Control and Prevention measures reviewed [place] precaution All prior entries were reviewed Administer medications as ordered Zosyn D/C Linezolid D/C Ceftriaxone 2 gm IV q 24 hr Prognosis: Guarded Discharge planning reviewed Follow up as outpatient. Eduardo Muhammad MD. 11/10/2023 Infection Control Recommendations [place] Precautions Antimicrobial Stewardship Recommendations Simplification of therapy [...] INITIAL HISTORY: Patient was originally seen at [facility] for progressive worsening shortness of breath. Her [...] with pulmonary disease. Patient was transferred to [facility] for further management. Patient is currently [...] Strain: Low Risk (10/19/2023) Received from [facility] Overall Financial Resource Strain (CARDIA) Difficulty of [...] Stress Concern Present (10/19/2023) Received from [facility] [place] [employer] - Occupational Stress Questionnaire Feeling of Stress : Only a little Social Connections: Moderately Isolated (10/19/2023) Received from [facility] Social Connection and Isolation Panel [NHANES] Frequency of Communication with Friends and Family: More than three times a week Frequency of Social Gatherings with Friends and Family: More than three times a week Attends Religion Services: Never Active Member of Clubs or Organizations: No Attends Club or Organization Meetings: Never Marital Status: Intimate Partner Violence: Not At Risk (10/19/2023) Received from [facility] Humiliation, Afraid, Rape, and Kick questionnaire Fear [...] Image quality is technically difficult. Medical Decision Tyiccd-Yrsbdcpv-Whkzl: Results Procedure Component Value Units Date/Time Infectious Disease Intervention [[id number]] Order Status: Sent Respiratory Panel, Molecular, with COVID-19 (Restricted: peds pts or suitable admitted adults) [[id number]] Collected: 11/09/23 0745 Order Status: Completed Specimen: Nasopharyngeal Swab Updated: [...] nucleic acid assay. MRSA DNA Probe, Nasal [[id number]] Collected: 11/09/23 0745 Order Status: Completed Specimen: Nasal Updated: 11/10/2349 Specimen Description .NASAL SWAB MRSA, DNA, Nasal NEGATIVE Comment: NEGATIVE: MRSA DNA not detected by nucleic acid amplification. Results should be used as an adjunct to nosocomial control efforts to identify patients needing enhanced precautions. The test is not intended to identify patients with staphylococcal infections. Results should not be used to guide or monitor treatment for MRSA infections. LEGIONELLA ANTIGEN, URINE [[id number]] Collected: 11/08/235 Order Status: Completed Specimen: Urine Updated: 11/09/23 1027 Legionella Pneumophilia Ag, Urine NEGATIVE Comment: L. pneumophila serogroup 1 antigen not detected. A negative result does not exclude infection with Leginella pnemophila serogroup 1 nor does it rule out other microbial-caused respiratory infections of disease caused by other serogroups of Legionella pneumophila. Culture, Blood 1 [[id number]] Collected: 11/08/232204 Order Status: Completed Specimen: Blood Updated: 11/10/2337 Specimen Description .BLOOD Special Requests R ARM 1ML Culture NO GROWTH 1 DAY Culture, Blood 2 [[id number]] Collected: 11/08/232199 Order Status: Completed Specimen: Blood Updated: 11/10/2331 Specimen Description .BLOOD Special Requests R HAND 6ML Culture NO GROWTH 1 DAY Culture, Respiratory [[id number]] Order Status: No result Specimen: Sputum Expectorated Strep Pneumoniae Antigen [[id number]] Collected: 11/08/23 0805 Order Status: Completed Specimen: [...] from the original note were not included. [employer] Manager Progress Note Date: 11/10/2023 Patient name: Ja [...] Infusions: heparin (PORCINE) Infusion 12 Units/kg/hr (11/10/23 5201) sodium bicarbonate 75 mEq in dextrose 5 [...] Continue statin Patient scheduled for RHC today [employer] Manager [facility]. [phone] Images from the original note were not included. [facility] Office: [phone] Tonny Boyle DO, Henri Martin DO, Jarred Peña DO, Paras Shankar DO, Curtis Sprague MD, Samia Allen MD, Denise Oneal MD, Fatou Robb MD, Juvencio Chacon MD, Melany Sherman MD, Todd Boyle MD, Lashaun Womack DO, Sandy Ma MD, Reilly Miller MD, Brigido Boyle DO, Kaylee Watson MD, Kendell Patterson DO, Alpa Kennedy MD, Venessa Jones MD, Elba Garcias MD, Sandra Turner MD, Jarvis Herbert MD, Netta Wall MD, Sue Spencer MD, William Mcknight MD, Harsh Contreras MD, Dara Mitchell MD, Alejandro Arroyo, DO, Douglas Ware DO, Bora Ashton DO, Maikel Varma MD, Cindy Daley, CUSTOMER SERVICES MANAGER, Mireille Jaeger CUSTOMER SERVICES MANAGER, Alejandro Aly, CUSTOMER SERVICES MANAGER, Lynn Reyes, [facility], Marilyn Aldana, CUSTOMER SERVICES MANAGER, Yessi Choi, CUSTOMER SERVICES MANAGER, Magalys Bartlett, CUSTOMER SERVICES MANAGER, Saba Skelton, CUSTOMER SERVICES MANAGER, Lashell Fall PAWendieC, Lizzie Estes PAWendieC, Sena Patton, CUSTOMER SERVICES MANAGER, Iker Car, CUSTOMER SERVICES MANAGER, Estee Cueto, CUSTOMER SERVICES MANAGER, Bonnie Bush, CUSTOMER SERVICES MANAGER, Carine Kwan, CUSTOMER SERVICES MANAGER, Oksana Perez, [employer] OPER[employer] MAN, Merlene Castro, CUSTOMER SERVICES MANAGER, Lilliam Conte, CUSTOMER SERVICES MANAGER, Krystal Howard, CUSTOMER SERVICES MANAGER [facility] IN-PATIENT SERVICE [facility] Progress Note 11/10/2023 11:16 AM Name: Ja Tavera Acct: [id number] Room: [address] [place] [address] Day: 2 Admit Date: 11/08/2023 7:47 PM PCP: Alejandro Villagran MD Code Status: Full Code Subjective: A patient was seen and examined at time of my evaluation patient was in mild distress continues to report chest tightness difficulty breathing, remain high flow Remain heparin drip cardiology on board 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 Patient was recently discharged from [facility] where she was treated for pneumonia after [...] Net -830 ml Labs: Hematology: Recent Labs 11/08/23205811/09/2343811/09/23 1009 11/10/23 0322 WBC 11.8* 10.2 -- [...] 13.32* -- -- -- Chemistry: Recent Labs 11/08/23205811/08/23220411/09/236 11/09/239 11/09/23 1009 11/09/23 1111 11/10/23 0322 NA [...] 06:22 AM NBEA 1.7 11/09/2023 06:22 AM [id number] 97.1 11/09/2023 06:22 AM FIO2 INFORMATION NOT [...] POA * (Principal) Acute hypoxic respiratory failure ([facility]) 11/08/2023 Yes Immunosuppression ([facility]) 11/08/2023 Yes Hypertension 11/08/2023 Yes History of renal transplant 11/08/2023 Yes Diabetes mellitus ([facility]) 11/08/2023 Yes Bladder cancer ([facility]) 11/08/2023 Yes DENIZ (acute kidney injury) ([facility]) 11/08/2023 Yes NSTEMI (non-ST elevated myocardial infarction) ([facility]) 11/08/2023 Yes Elevated d-dimer 11/08/2023 Yes Leukocytosis 11/08/2023 Yes Shortness of breath 11/09/2023 Yes Pneumonia of both lungs due to infectious organism 11/09/2023 Yes Biventricular congestive heart failure ([facility]) 11/09/2023 Yes Aortic atherosclerosis ([facility]) 11/09/2023 Yes Hypoglycemia 11/09/2023 Yes Pericardial effusion 11/09/2023 Yes Pulmonary hypertension ([facility]) 11/09/2023 Yes Cor pulmonale ([facility]) 11/09/2023 Yes Metabolic acidosis 11/09/2023 Yes Arterial [...] prednisone) of. Patient was recently hospitalized at [facility] with worsening shortness of breath. Patient was [...] 300 [P.O.:300] Out: 1130 [Urine:1130] Date 11/10/23 - 11/10/232358 Shift 1747-3055 3223-2139 9676-9450 24 Hour Total INTAKE Shift Total(mL/kg) OUTPUT Urine(mL/kg/hr) 430(0.7) 430 Shift Total(mL/kg) 430(5.6) 430(5.6) Weight (kg) 76.8 76.8 76.8 76.8 LABORATORY RESULTS: BLOOD GASES: Recent Labs 11/09/23 0622 POCPH 7.458* POCPCO2 29.6* POCPO2 84.8 POCHCO3 21.0 [id number] 97.1 COMPLETE BLOOD COUNTS: Recent Labs 11/08/23 2059 11/09/23 0439 11/10/23 0322 WBC 11.8* 10.2 9.8 [...] 72 hours. BASIC METABOLIC PROFILE: Recent Labs 11/08/23205811/09/23 0439 11/09/23 1009 11/10/23 0322 NA 142 -- 139 139 K 4.0 -- 4.2 3.7 CL 111* -- 109* 109* CO2 16* -- 16* 19* BUN 35* -- 32* 28* CREATININE 2.7* -- 3.1* 3.5* GLUCOSE 105* -- 89 64* MG -- 2.0 -- 1.9 LIVER FUNCTION TESTS: Recent Labs 11/08/232058 ALT 100* AST 72* ALKPHOS 86 BILITOT 0.7 COAGULATION PROFILE: Recent Labs 11/08/23205811/09/23 100 INR -- 1.1 PROTIME -- 14.2 APTT 52.7* 110.6* D-DIMER: Recent Labs 11/08/232058 DDIMER 13.32* LACTIC ACID: No results for input(s): LACTA in the last 72 hours. CARDIAC ENZYMES: No results for input(s): CKTOTAL , CKMB , CKMBINDEX , TROPONINI in the last 72 hours. Invalid input(s): TROPONIN , HSTROP BRAIN NATRIURETIC PEPTIDE/PRO-BRAIN NATRURETIC PEPTIDE: Recent Labs 11/08/232058 PROBNP 21,057* TRIGLYCERIDES: No results for input(s): [...] transplant; on immunosuppressive therapy Recent hospitalization at [facility] for pneumonia Essential hypertension Diabetes mellitus Obesity [...] a 63-year-old woman who was transferred to [facility] on 11/07 from OSH with shortness of breath. She was discharged from [facility] on 10/22 after 5-day hospital stay where [...] Continue heparin gtt NPO Post-op check Alejandro Bowers [facility] [place]: C: Email: [email or web address] Images from the original note were not included. [facility] Occupational Therapy Not Seen Note DATE: [...] from the original note were not included. [facility] Office: [phone] Tonny Boyle DO, Henri Martin DO, Jarred Peña DO, Paras Shankar DO, Curtis Sprague MD, Samia Allen MD, Denise Oneal MD, Fatou Robb MD, Juvencio Chacon MD, Mealny Sherman MD, Todd Boyle MD, Lashaun Womack DO, Sandy Ma MD, Reilly Miller MD, Brigido Boyle DO, Kaylee Watson MD, Kendell Patterson DO, Alpa Kennedy MD, Venessa Jones MD, Elba Garcias MD, Sandra Turner MD, Jarvis Herbert MD, Netta Wall MD, Sue Spencer MD, William Mcknight MD, Harsh Contreras MD, Dara Mitchell MD, Alejandro Arroyo DO, Douglas Ware DO, Bora Ashton DO, Maikel Varma MD, Cindy Daley CNP, Mireille Jaeger CNP, Alejandro Aly CNP, Lynn Reyes DNP, Marilyn Aldana CNP, Yessi Choi, CUSTOMER SERVICES MANAGER, Magalys Bartlett, CUSTOMER SERVICES MANAGER, Saba Skelton, CUSTOMER SERVICES MANAGER, Lashell Fall PA-C, Lizzie Estes PA-C, Sena Patton, CUSTOMER SERVICES MANAGER, Iker Car, CUSTOMER SERVICES MANAGER, Estee Cueto, CUSTOMER SERVICES MANAGER, Bonnie Bush, CUSTOMER SERVICES MANAGER, Carine Kwan, CUSTOMER SERVICES MANAGER, Oksana Perez, FIELD ARTILLERY OPERATIONS MAN, Merlene Castro, CUSTOMER SERVICES MANAGER, Lilliam Conte, CUSTOMER SERVICES MANAGER, Krystal Howard, CUSTOMER SERVICES MANAGER [facility] IN-PATIENT SERVICE [facility] Progress Note 11/09/2023 9:04 AM Name: Ja Tavera Acct: [id number] Room: [address] [place] [address] Day: 1 Admit Date: 11/08/2023 7:47 PM PCP: No primary care provider on file. Code Status: Full Code Subjective: Anxious appearing on high flow nasal cannula. Has chest pain with inspiration no fevers, chills. Denies any lower extremity edema. Brief History: 61-year-old female presented to the hospital for evaluation of shortness of breath and concerns for pulmonary embolism. Patient was recently discharged from [facility] where she was treated for pneumonia after [...] ending 11/09/23 0904 Labs: Hematology: Recent Labs 11/08/23205811/09/23 0439 WBC 11.8* 10.2 RBC 6.16* 5.37* HGB 17.3* 14.9 HCT 54.1* 46.8 MCV 87.8 87.2 MCH 28.1 27.7 MCHC 32.0 31.8 RDW 14.1 14.2 PLT See Reflexed IPF Result See Reflexed IPF Result DDIMER 13.32* -- Chemistry: Recent Labs 11/08/23205811/08/23 2205 11/09/23 0036 11/09/23 0439 NA 142 -- -- -- K 4.0 [...] LACTACIDWB -- 2.9* -- -- Recent Labs 11/08/23200411/08/23204511/08/23205811/09/2332911/09/23 0353 11/09/23 0439 11/09/23 0610 11/09/23 0735 [...] 06:22 AM NBEA 1.7 11/09/2023 06:22 AM QMNX7BTN 97.1 11/09/2023 06:22 AM Lab Results Component [...] POA * (Principal) Acute hypoxic respiratory failure ([facility]) 11/08/2023 Yes Immunosuppression ([facility]) 11/08/2023 Yes Hypertension 11/08/2023 Yes History of renal transplant 11/08/2023 Yes Diabetes mellitus ([facility]) 11/08/2023 Yes Bladder cancer ([facility]) 11/08/2023 Yes DENIZ (acute kidney injury) ([facility]) 11/08/2023 Yes NSTEMI (non-ST elevated myocardial infarction) ([facility]) 11/08/2023 Yes Elevated d-dimer 11/08/2023 Yes Leukocytosis 11/08/2023 Yes Plan: Acute hypoxemic respiratory failure Concern for Pulmonary embolism with right heart strain Pt was recently discharged from [facility] where she was treated for similar issues [...] intensity heparin gtt, discussed with patient son Bill and Vascular surgery. IF VQ negative will [...] 11/09/2023 9:04 AM documented in this encounter [facility] 11-16-2023 Hospital Discharge instructions William Mcknight MD - 11/16/2023 12:14 PM EDT Please continue to take your medication as prescribed, follow-up with your primary doctor pulmonology and kidney doctor after discharge Needs repeat 2D echo in 3 months and VQ scan within 6 months perPulmonology recommendation documented in this encounter [facility] 11-16-2023 Hospital course Narrative Images from the original note were not included. [facility] Office: [phone] Tonny Boyle DO, Henri Martin DO, Jarred Peña DO, Paras Shankar DO, Curtis Sprague MD, Samia Allen MD, Denise Oneal MD, Fatou Robb MD, Juvencio Chacon MD, Melany Sherman MD, Todd Boyle MD, Lashaun Womack DO, Sandy Ma MD, Reilly Miller MD, Brigido Boyle DO, Kaylee Watson MD, Kendell Patterson DO, Alpa Kennedy MD, Venessa Jones MD, Elba Garcias MD, Sandra Turner MD, Jarvis Herbert MD, Netta Wall MD, Sue Spencer MD, William Mcknight MD, Harsh Contreras MD, Dara Mitchell MD, Alejandro Arroyo DO, Douglas Ware DO, Bora Ashton DO, Maikel Varma MD, Cindy Daley, CUSTOMER SERVICES MANAGER, Mireille Jaeger CUSTOMER SERVICES MANAGER, Alejandro Aly, CUSTOMER SERVICES MANAGER, Lynn Reyes, [facility], Marilyn Aldana, CUSTOMER SERVICES MANAGER, Yessi Choi, CUSTOMER SERVICES MANAGER, Magalys Bartlett, CUSTOMER SERVICES MANAGER, Saba Skelton, CUSTOMER SERVICES MANAGER, Lashell Fall PAWendieC, RAMOS KeysC, Sena Patton, CUSTOMER SERVICES MANAGER, Iker Car, CUSTOMER SERVICES MANAGER, Estee Cueto, CUSTOMER SERVICES MANAGER, Bonnie Bush, CUSTOMER SERVICES MANAGER, Carine Kwan, CUSTOMER SERVICES MANAGER, Oksana Perez, [facility], Merlene Castro, CUSTOMER SERVICES MANAGER, Lilliam Conte, CUSTOMER SERVICES MANAGER, Krystal Howard, CUSTOMER SERVICES MANAGER [facility] IN-PATIENT SERVICE [facility] Discharge Summary Patient ID: Ja Tavera : 1960 ACCOUNT: [id number] Patient's PCP: Alejandro Villgaran MD Admit Date: 11/08/2023 Discharge Date: 11/16/2023 [...] pulmonary embolism. Patient was recently discharged from [facility] where she was treated for pneumonia after [...] pulmonology okay for discharge, discussed with the case liner today and patient will be discharged home [...] Physician Follow Up: Zechariah Beatty DO [address] [place] [id number] Follow up in 2 week(s) Steven Jones MD [address] [place] [address] [facility] [address] Follow up in 6 week(s) Lung doctor, [...] Tabs tablet Commonly known as: ULORIC InPen 472-Eipl-Owervtl-Fiasp Kurt Generic drug: Injection Device for Insulin [...] Commonly known as: PROGRAF therapeutic multivitamin-minerals tablet Toujeo Max SoloStar 300 UNIT/ML Sopn Generic drug: Insulin Glargine (2 Unit Dial) Tradjenta 5 MG tablet Generic drug: linagliptin Where to Get Your Medications These medications were sent to [id number] - [place], [place] - [address] [facility] [phone] - F [phone] [place] [phone] apixaban 5 MG Tabs tablet levothyroxine 125 [...] this patient's care. documented in this encounter [facility] 11-03-2023 Note [facility] 10-23-2023 Note Histoplasma antibodi es negative. Coxiella serologies are negative as well [facility] 10-23-2023 Note [facility] 10-23-2023 Note [facility] 10-23-2023 Note [facility] 10-22-2023 Note [facility] 10-22-2023 Note [facility] 10-21-2023 Note Per hospitalist meet ing likely DC tomorrow. Nephrology following. [facility] 10-21-2023 Note [facility] 10-21-2023 Note [facility] 10-20-2023 Note [facility] 10-20-2023 Note [facility] 10-20-2023 Note [facility] 10-19-2023 Note [facility] 10-16-2023 Note [facility] 10-16-2023 Note [facility] 09-09-2021 Evaluation note Encounter Date Diagnosis [...] concern Aug, Hematuria, unspecified (ICD-10 - R31.9) [facility] Other 03-31-2022 Evaluation note* Encounter Date Diagnosis [...] infection (UTI) home care material was printed [facility] Other Evaluation noteNo assessment information available [facility] Work Phone: [email or web address] noteNo InformationNort [employer] Other Evaluation note* Diagnosis Type 2 diabetes mellitus with hyperglycemia, with long-term current use of insulin ([facility])- Primary Insulin long-term use ([facility] [facility]) Encounter for long-term (current) use of insulin Hyperlipemia, mixed ([facility]) Mixed hyperlipidemia Encounter for dietary consultation Vitamin D deficiency Acquired hypothyroidism (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 ([facility]) [facility] Acute on chronic respiratory failure with hypoxia ([facility])- Primary Shortness of breath Elevated d-dimer Abnormal coagulation profile DENIZ (acute kidney injury) (HCC) Acute kidney failure, unspecified Acute respiratory failure, unspecified whether with hypoxia or hypercapnia (HCC) Aortic atherosclerosis (HCC) Atherosclerosis of aorta Immunosuppression ([facility]) Unspecified disorder of immune mechanism Hypertension Unspecified essential hypertension History of renal transplant Kidney replaced by transplant Diabetes mellitus (HCC) Type II or unspecified type diabetes mellitus without mention of complication, not stated as uncontrolled Bladder cancer (HCC) Malignant neoplasm of bladder, part unspecified DENIZ (acute kidney injury) ([facility]) Acute kidney failure, unspecified NSTEMI (non-ST elevated [...] Unspecified disease of pericardium Severe pulmonary hypertension ([facility]) Cor pulmonale ([facility]) Chronic pulmonary heart disease, unspecified Metabolic acidosis Acidosis Arterial hypotension Hypotension, unspecified Pulmonary embolus ([facility]) Other pulmonary embolism and infarction Debility Debility, unspecified CKD (chronic kidney disease) stage 4, GFR 15-29 ml/min ([facility]) Chronic kidney disease, Stage IV (severe) [facility] [place] [facility] Diagnosis Pulmonary hypertension- Primary Other chronic pulmonary heart diseases Acute saddle pulmonary embolism with acute cor pulmonale Sleep-related breathing disorder Other sleep disturbances Interatrial cardiac shunt Other postprocedural status Diastolic dysfunction, left ventricle Heart disease, unspecified [facility] Diagnosis Acute saddle pulmonary embolism with acute cor pulmonale (HCC) [facility] [place] [facility] Diagnosis Acute saddle pulmonary embolism with acute cor pulmonale ([facility]) Pulmonary hypertension ([facility]) Other chronic pulmonary heart diseases [facility] [place] [facility]* Diagnosis Type 2 diabetes mellitus with hyperglycemia, with long-term current use of insulin ([facility])- Primary Vitamin D deficiency Encounter for dietary consultation Insulin long-term use ([facility]) Encounter for long-term (current) use of insulin Hyperlipemia, mixed ([facility]) Mixed hyperlipidemia Acquired hypothyroidism (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 [facility]ney transplant status [facility] Kidney replaced by transplant- Primary [facility] Diagnosis Type 2 diabetes mellitus with hyperglycemia, with long-term current use of insulin (HCC)- Primary Vitamin D deficiency Encounter for dietary consultation Insulin long-term use (HCC) Encounter for long-term (current) use of insulin Hyperlipemia, mixed Mixed hyperlipidemia Acquired hypothyroidism Unspecified 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 Kidney transplant status (HCC) documented [facility] encounter [facility] Narrative - Reported* Type Description Date [...] in bladder removed Hospitalization History see above [facility] Other InstructionsNot on filedocumented in this encounter [facility] for visit Narrative* Imaging (Routine) - Closed Specialty Diagnoses / Procedures Referred By Alize brown Referred To Contact Radiology Diagnoses Acute saddle pulmonary embolism with acute cor pulmonale (HCC) Pulmonary hypertension (HCC) Procedures NM LUNG VENT/PERFUSION (VQ) Steven Jones MD [address] [place] [address] Phone: tel: fax: Referral ID Status Reason Start Date Expiration Date Visits Re quested Visits Authorized [id number] Closed 06/01/2024 06/01/2025 1 1 [facility] Summary Purpose Family History No Family History [...] Communication Gab Tavera Spouse Primary Decision Maker Gab Tavera Jr. Child Secondary Decision Maker Harrison Tavera Child Secondary Decision Maker Date Activated Date Inactivated Comments 11/08/2023 8:21 PM Healthcare Agents on File Name Relationship Healthcare Agent Relationshi p Communication Gab Tavera Spouse Primary Decision Maker [phone] (Mobile) Gab Tavera Jr. Child Secondary Decision Maker Harrison Tavera Child Secondary Decision Maker Date Activated Date Inactivated Comments 11/08/2023 8:21 PM 11/16/2023 5:02 PM Healthcare Agents on File Name Relationship Healthcare Agent Relationshi p Communication Gab Tavera Spouse Primary Decision Maker [phone] (Mobile) Gab Tavera Jr. Child Secondary Decision Maker Harrison Tavera Child Secondary Decision Maker Healthcare Agents on File Name Relationship Healthcare Agent Relationshi p Communication Gab Tavera Spouse Primary Decision Maker [phone] (Mobile) Gab Tavera Jr. Child Secondary Decision Maker Harrison Tavera Child Secondary Decision Maker Healthcare Agents on File Name Relationship Healthcare Agent Relationshi p Communication Gab Tavera Spouse Primary Decision Maker Gab Tavera Jr. 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) Procedures Echo (TTE) complete (PRN contrast/bubble/strain/3D) MI ECHO TTHRC R-T 2D W/WOM-MODE COMPL SPEC&COLR D MI TTE W OR WO FOL WCON,DOPPLER Steven Jones MD [address] [address] Referral ID Status Reason Start Date Expiration Date Visits Re quested Visits Authorized [id number] Closed 02/11/2024 02/10/2025 1 1 Additional Source Comments Care Teams (unrecognized sec tion and content) Team Status: Inactive Member Role Status Naldo Raygoza APRN Attending Provider Active 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 Relationship Specialty Start Date End Date Alejandro Villagran MD [address] [place] [address] PCP - General Family Medicine 11/08/23 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 Relationship Specialty Start Date End Date Alejandro Villagran MD [address] [place] [address] PCP - General Family Medicine 11/08/23 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 Relationship Specialty Start Date End Date Alejandro Villagran MD [address] [place] [address] PCP - General Family Medicine 11/08/23 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 Relationship Specialty Start Date End Date Alejandro Villagran MD [address] [place], [place] [phone] (Work) PCP - General Family Medicine 11/08/23 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 Relationship Specialty Start Date End Date Alejandro Villagran MD [address] [place] [address] PCP - General Family Medicine 11/08/23 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 Relationship Specialty Start Date End Date Alejandro Villagran DO [address] [place] [address] PCP - General Family Medicine 12/22/17 Goals (unrecognized section and content) Goals may be documented in a n alternate sectionNo InformationNo InformationNo InformationNot on filedocumented as of this encounter REASON FOR VISIT (unrecogniz ed section and content) Reason Comments Diabetes Follow-up Reason Comments Diabetes AIC 7.0% 05/23/2024 Follow-up Reason Comments New Patient Specialty Diagnoses / Procedures Referred By Contac t Referred To Contact Cardiovascular Medicine Diagnoses Pulmonary hypertension Acute saddle pulmonary embolism with acute cor pulmonale Sleep-related breathing disorder Interatrial cardiac shunt Diastolic dysfunction, left ventricle Steven Jones MD [address] [address] [facility] [address] [place] [address] Referral ID Status Reason Start Date Expiration Date V isits Requested Visits Authorized [id number] New Request 03/17/2024 04/11/2025 1 1 Specialty Diagnoses / Procedures Referred By Contac t Referred To Contact Diagnoses Acute hypoxic respiratory failure (HCC) Acute hypoxic resp failure Stvz [address] Stepdown [address] [place] [address] 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) Procedures Echo (TTE) complete (PRN contrast/bubble/strain/3D) MI ECHO TTHRC R-T 2D W/WOM-MODE COMPL SPEC&COLR D MI TTE W OR WO FOL WCON,DOPPLER Steven Jones MD [address] [address] Referral ID Status Reason Start Date Expiration Date Visits Re quested Visits Authorized [id number] Closed 02/11/2024 02/10/2025 1 1 Reason Comments Diabetes Mellitus Follow-up DYSURIAPOSS UTI INFORMATION SOURCE (unrecogn ized section and content) DATE CREATED AUTHOR 09/13/2021 [facility] DATE CREATED AUTHOR AUTHOR'S ORGANIZ ATION 10/26/2021 [facility] DATE CREATED AUTHOR AUTHOR'S ORGANIZ ATION 03/08/2022 [facility] DATE CREATED AUTHOR AUTHOR'S ORGANIZ ATION 03/31/[address] [facility] DATE CREATED AUTHOR AUTHOR'S ORGANIZ ATION 08/17/2024 [facility] DATE CREATED AUTHOR AUTHOR'S ORGANIZ ATION 10/06/2024 [facility] DATE CREATED AUTHOR AUTHOR'S ORGANIZ ATION 10/07/2024 [facility] Ordered Prescriptions (unrec ognized section and content) [...] Mynor Arshad RN)2118 (Given - Provider: Kathy Serra, ELIZA) 1016 (Given - Provider: Albert Amaro RN)2099 (Due) apixaban (ELIQUIS) tablet 5 mg(Linked Group 1) 5 mg, Oral, 2 TIMES DAILY, First dose on Thu11/19/23 at 0900, Until Discontinued, Indication of Use: Treatment-DVT/PE, ANTICOAGULANT atorvastatin (LIPITOR) tablet 40 mg 40 mg, Oral, NIGHTLY, First dose on 11/08/23 at 2200, Until Discontinued 2029 (Given - Provider: Amelia Du RN) 2118 (Given - Provider: Kathy Serra, ELIZA) 2099 (Due) cefTRIAXone (ROCEPHIN) 2000 mg in sterile water 20 mL IV syringe () 2,000 mg, IntraVENous, EVERY 24 HOURS, 7 doses, First dose on Thu11/09/23 at 1430, Last dose on 11/15/23 at 1430, Antimicrobial Indications: Pneumonia (CAP), CAP [...] notify physician 0811 (Not Given - Provider: Mynor Arshad RN - Reason: Order parameters not met)1452 [...] Mynor Arshad RN) 0820 (Given - Provider: Mynor Arshad RN) 1017 (Given - Provider: Albert Amaro, ELIZA) sodium bicarbonate tablet 650 mg (CANCELED) 650 [...] Midline or Central Line = 20 mL/lumen 0833 (Given - Provider: Mynor Arshad RN)2030 (Given - Provider: Amelia Du RN) 08 (Given - Provider: Mynor Arshad RN)2120 (Given - Provider: Kathy Serra, RN) 102 (Given - Provider: Albert Amaro, RN)2100 (Due) sodium chloride flush 0.9 % [...] Mynor Arshad RN)2119 (Given - Provider: Kathy Serra, ELIZA) 102 (Given - Provider: Albert Amaro, ELIZA)2100 (Due) tacrolimus (proGRAF) capsule 0.5 mg 0.5 mg, Oral, 2 TIMES DAILY, First dose (after last modification) on Thu11/09/23 at 1600, Until Discontinued 0832 (Given - Provider: Mynor Arshad, ELIZA)2028 (Given - Provider: Amelia Du, RN) 0820 (Given - Provider: Mynor Arshad RN)2118 (Given - Provider: Kathy Serra, RN) 1016 (Given - Provider: Albert Amaro, ELIZA)2100 (Due) PRN Medication Order 11/14/2023 11/15/2023 11/16/2023 [...] Oral, EVERY 6 HOURS PRN, Starting on [place] 11/08/23 at 2019, Until Discontinued, Pain Mild (1-3), Fever, For temp greater than 100.4 F (38 C), Maximum dose of acetaminophen is 4000 mg from all sources in 24 hours. dextrose 10 % infusion IntraVENous, at 100 mL/hr, CONTINUOUS PRN, if blood glucose remains LESS THAN 70 mg/dL after 2 dextrose 10% intravenous boluses or administration of glucagon, Starting on [place] 11/08/23 at 2023, If blood glucose fails to [...] patient NOT ALERT or NPO, Starting on [place] 11/08/23 at 2023, Repeat blood glucose in 15 [...] patient NOT ALERT or NPO, Starting on [place] 11/08/23 at 2023, Repeat blood glucose in 15 [...] mg 1 mg, SubCUTAneous, PRN, Starting on [place] 11/08/23 at 2023, Until Discontinued, Low blood sugar, [...] 8 HOURS PRN, Starting on Thu11/08/23 at 2019, Until Discontinued, Nausea, Vomiting perflutren lipid microspheres [...] Oral, EVERY 6 HOURS PRN, Starting on [place] 11/08/23 at 2019, Until Discontinued, Pain Mild (1-3), Fever, For temp greater than 100.4 F (38 C), Maximum dose of acetaminophen is 4000 mg from all sources in 24 hours. Or acetaminophen (TYLENOL) suppository 650 mgJump to med 650 mg, Rectal, EVERY 6 HOURS PRN, Starting on [place] 11/08/23 at 2019, Until Discontinued, Pain Mild (1-3), Fever, For temp greater than 100.4 F (38 C), Administer if oral route cannot be used. Group 3: dextrose bolus 10% 125 mLJump to med 125 mL, IntraVENous, at 937.5 mL/hr, Administer over 8 Minutes, PRN, Other, Blood glucose 40 - 69 mg/dL and patient NOT ALERT or NPO, Starting on [place] 11/08/23 at 2023, Repeat blood glucose in 15 [...] patient NOT ALERT or NPO, Starting on [place] 11/08/23 at 2023, Repeat blood glucose in 15 [...] on 11/08/23 at 2019, Until Discontinued, Nausea, Vomiting, Administer [...] BE BASED ON THE PRIMARY CLINICAL RECORDS. [email or web address] [facility]. provides no warranty or guarantee of the accuracy or completeness of information in this document.
--- NOTE | 2024-10-10 01:18 | ED_ITS ---
HPI - Female Genitourinary General Chief complaint: Urogenital-Female Stated complaint: UROGENTIAL Time Seen by Provider: 10/10/24 00:49 Source: patient and family Mode of arrival: walk-in Limitations: no limitations History of Present Illness HPI Narrative: This 64 female who had a kidney transplant in 2006 at [facility] is brought to the emergency department by her . The patient states she started having urin irina frequency and urgency on Thursday. She thought she may be developing a urinary tract infection but put it off. Tonight her states that she was wrapped up in a blanket and shaking so he took her temperature and it was 104. She denies any sore throat, runny nose, cough or chest congestion. She is not having any chest pain or shortness of breath. She denies any flank pain or abdominal pain. She states initially she was urinating frequently making her think she had a urinary tract infection but most recently she has had nausea making it hard for her to keep up on her fluids and her urine output has decreased. She states that when she was younger her right kidney was removed due to an infection. She subsequently developed kidney failure in her left kidney requiring transplant. Related Data Home Medications ?Medication ?Instructions ?Recorded ?Confirmed alendronate 35 mg tablet 35 mg PO QWEEK 11/07/2309/23 atorvastatin 40 mg tablet 40 mg PO DAILY 11/07/2309/23 febuxostat 40 mg tablet 40 mg PO DAILY 11/07/2309/23 insulin aspart U-100 100 unit/mL 10 unit subcut QPM 10/10/24 (3 mL) subcutaneous pen levothyroxine 150 mcg tablet 150 mcg PO QAM 11/07/23 0 10/10/24 magnesium oxide 400 mg (241.3 mg 400 mg PO DAILY 11/0610/10/24 magnesium) tablet metoprolol tartrate 25 mg tablet 25 mg PO BID 11/08/23 10/10/24 prednisone 10 mg tablet 10 mg PO DAILY 11/08/2309/23 tacrolimus 0.5 mg capsule, 0.5 mg PO BID 11/08/2309/23 immediate-release alendronate 35 mg tablet 35 mg PO QWEEK 10/10/2409/23 apixaban 5 mg tablet (Eliquis) 5 mg PO Q12H 10/10/24 0 10/10/24 famotidine 20 mg tablet 20 mg PO DAILY 10/10/2409/23 (Zantac-360 (famotidine)) hydralazine 25 mg tablet 25 mg PO Q12H 10/10/2410/10 insulin glargine U-300 conc 300 unit subcut 10/10/24 unit/mL (3 mL) subcutaneous pen (Toujeo Max U-300 SoloStar) loratadine 10 mg tablet (Claritin) 10 mg PO DAILY 09/2310/10/24 sirolimus 1 mg tablet 1 mg PO DAILY 10/10/2410/10 sodium bicarbonate 650 mg tablet 650 mg PO BID 5 10/10/24 valganciclovir 450 mg tablet mg 10/10/24 Allergies Allergy/AdvReac Type Severity Reaction Status Date / Time amlodipine Allergy Rash Verified 10/10/24 00:47 aspirin AdvReac Severe Unknown Verified 10/10/24 00:47 clopidogrel (From Plavix) AdvReac Severe Unknown Verified 10/10/24 00:47 ibuprofen AdvReac Severe Unknown Verified 10/10/24 00:47 Review of Systems ROS Status of ROS 10 or more systems reviewed and unremark able except as noted in history and below [facility] Medical History (Updated 10/10/24 @ 03:55 by Alyssa Perez MD) Bladder cancer ?C67.9 - Malignant neoplasm of bladder, unspecified (ICD-10) Hypothyroidism ?E03.9 - Hypothyroidism, unspecified (ICD-10) Gout ?M10.9 - Gout, unspecified (ICD-10) Insulin dependent diabetes mellitus Tonsillectomy planned Elevated troponin ?R79.89 - Other specified abnormal findings of blood chemistry (ICD-10) Congestive heart failure ?I50.9 - Heart failure, unspecified (ICD-10) Pneumonia ?J18.9 - Pneumonia, unspecified organism (ICD-10) Shortness of breath ?R06.02 - Shortness of breath (ICD-10) Surgical History (Updated 10/10/24 @ 02:59 by Alyssa Perez MD) History of carpal tunnel release ?Z98.890 - Other specified postprocedural states (ICD-10) H/O dilation and curettage ?Z98.890 - Other specified postprocedural states (ICD-10) Kidney transplant recipient ?Z94.0 - Kidney transplant status (ICD-10) Social History Known occupational exposures/hazards: No Highest level of school completed/degree received: high school graduate Little interest or pleasure in doing things: not at all Feeling down, depressed, or hopeless: not at all Exam Narrative Exam Narrative: Vital signs and Nursing Notes reviewed: Patient is febrile with a temperature of 101.3, she has a normal pulse, blood pressure is elevated 147/63, she has not hypoxic with pulse ox of 96% on room air General: Awake, alert, oriented, nontoxic adult female, no acute distress, lying comfortably on the stretcher HEENT: Normocephalic atraumatic, mucous membranes are slightly dry Neck: Supple, no meningeal signs, no anterior or posterior cervical lymphadenopathy Chest: Lungs are clear to auscultation with good air entry, there is no wheezing rhonchi or rales appreciated no accessory muscle use, patient is speaking in complete sentences-no chest wall tenderness to palpation CVS: Regular rate and rhythm S1-S2, no murmurs rubs or gallops, pulses are brisk and equal bilaterally ABD: Soft, nondistended, nontender, no reproducible tenderness, no rebound guarding or rigidity, bowel sounds are normal, no pulsatile masses appreciated, no flank tenderness-transplanted kidney is in the right lower quadrant of the abdomen Extremities: Moving all extremities, no lower extremity tenderness or swelling noted, negative Homans' sign, pulses are brisk and equal bilaterally Skin: Normal in appearance without rash,pallor, petechiae or purpura Neuro: No focal deficits Constitutional Vital Signs, click to edit/add: Last Vital Signs Temp 98.3 F 10/10/24 02:48 Pulse 78 10/10/24 05:30 Resp 15 10/10/24 05:30 BP 114/68 10/10/24 05:30 Pulse Ox 97 10/10/24 05:30 O2 Del Method Room Air 10/10/24 00:42 Course Vital Signs Vital signs: Vital Signs Temperature 101.3 F H 10/10/24 00:42 Pulse Rate 80 10/10/24 00:42 Respiratory Rate 18 10/10/24 00:42 Blood Pressure 147/63 H 10/10/24 00:42 Pulse Oximetry 96 10/10/24 00:42 Oxygen Delivery Method Room Air 10/10/24 00:42 Temperature 98.3 F 10/10/24 02:48 Pulse Rate 78 10/10/24 05:30 Respiratory Rate 15 10/10/24 05:30 Blood Pressure 114/68 10/10/24 05:30 Pulse Oximetry 97 10/10/24 05:30 Oxygen Delivery Method Room Air 10/10/24 00:42 MDM - Female Genitourinary MDM Narrative Medical decision making narrative: This is a 61 female with a history of diabetes, chronic kidney disease who is status post kidney transplant at [facility] in 2006 presents for evaluation of urinary symptoms that started Thursday, 3 days prior to arrival. She states she started having some urinary frequency and urgency. She tried to overlook it but today when her got home she was sitting in the house that was warm wearing blankets. He took her temperature at that time and it was 104. She took Ty lenol and came to the emergency department. Upon arrival she is still febrile. She denies any chest pain or shortness of breath. She is on Eliquis after having a PE in the past. She denies any sore throat, runny nose, chest pain or cough contributing to her fever. She states she has been nauseated and not able to tolerate many fluids recently. She states her baseline creatinine is 2.7. Her chief medical technologist at [facility] is Dr. Ji Ramirez. She has a rn obgyn at [facility]. She is not having any abdominal pain or diarrhea. She does not have any ureteral stents. A septic workup was ordered upon arrival. EKG was ordered which is a sinus rhythm at 68 bpm. She was placed on the monitor. On the monitor she has had episodes of irregularity with tachycardia and a repeat EKG was ordered. She denies a history of atrial fibrillation. Repeat EKG was ordered which is atrial fibrillation with RVR at 112 bpm with a normal axis and nonspecific ST changes with no acute ST segment elevation or T wave inversion She had taken Tylenol prior to arrival. An IV was placed and a workup including CBC with differential, comprehensive metabolic profile, lactic acid, 2 sets of blood cultures and urinalysis were ordered as well as troponin, BNP, chest x-ray and noncontrast CT scan of the abdomen and pelvis. Her white count is elevated at 13.6. Hemoglobin is on the low side at 7.9. Hematocrit is 27.1. Platelet count is normal at 343. She has a normal sodium and potassium. Chloride is elevated at 105. CO2 is normal at 23.4. BUN is elevated at 42 with a creatinine of 3.53. GFR at this time is 13. Glucose was low at 51 and she was given a popsicle and juice. Lactic acid is normal at 1.2. 2 sets of blood cultures are pending. Troponin is normal. BNP is elevated at 1138. She was given IV fluids but the 30 cc/kg bolus was withheld due to her history of heart disease and elevated BNP as well as her GFR of 13. Due to her low blood sugar her IV fluids were changed to D5 LR. She was empirically given IV Zosyn once blood cultures were obtained. Non contrast scan of the abdomen and pelvis was ordered. CT scan shows right lower quadrant renal transplant with focal areas of parenchymal thinning at the mid pole and upper pole of the renal transplant with no hydronephrosis or perinephric fluid collection in the right lower quadrant. Normal appendix was seen. There is mild generalized colonic diverticulosis. Right kidney was not identified. Severe chronic atrophic changes noted in the left saxman renal parenchyma with degenerative disc disease in the lower lumbar spine and possible cystitis. X-ray of the chest was ordered which shows mild enlarged heart with no lobar consolidation or edema and no pleural effusion or pneumothorax. Urine is positive for nitrites, large Leukocyte esterase and 10-20 WBC/HPF. Culture is pending. At 1 point her blood pressure dropped into the 70s over 50s and an additional IV was started and she was given a 250 mL bolus of normal saline with clinical improvement to 104/70 Pt requests transfer to [facility] where she had her transplant also where her chief medical technologist is- for continuity of care and further evaluation of her infection as well as evaluation of her new onset atrial fibrillation. Case was discussed with Dr Arroyo at [facility] and she is accepted for transfer to [facility], Stepdown. While being monitored and awaiting transfer, her rhythm returned to a NSR. At the time of this dictation her rhythm is normal sinus rhythm at 73 bpm with a pulse ox of 97% on room air and blood pressure is 86/68. She remains stable in the ER, repeat lactic acid is 2.2 and troponin remains normal. Medical Records Attestation: I reviewed the patient's medical records. Lab Data Attestation: I reviewed the patient's lab results. Labs: Lab Results 10/10/24 10/10/24 10/10/24 Range/Units 01:26 03:49 05:31 WBC 13.0 H (4.0-11.0) 10^3/uL RBC 3.66 L (4.20-5.40) 10^6/uL Hgb 7.9 L (12.0-16.0) g/dL Hct 27.1 L (36.0-48.0) % MCV 74.0 L (81.0-99.0) fL MCH 21.6 L (26.7-34.0) pg MCHC 29.2 L (29.9-35.2) g/dL RDW 18.3 H (11.0-15.0) % Plt Count 343 (150-450) 10^3/uL MPV 9.3 L (9.5-13.5) fL Neut % (Auto) 82.5 H (43.0-75.0) % Lymph % (Auto) 8.8 L (20.5-60.0) % [place] % (Auto) 7.7 (1.7-12.0) % Eos % (Auto) 0.1 L (0.9-7.0) % Baso % (Auto) 0.2 (0.2-2.0) % Neut # (Auto) 10.8 H (1.4-6.5) 10^3/uL Lymph # (Auto) 1.2 (1.2-3.8) 10^3/uL [place] # (Auto) 1.0 H (0.3-0.8) 10^3/uL Eos # (Auto) 0.0 (0.0-0.7) 10^3/uL Baso # (Auto) 0.0 (0.0-0.1) 10^3/uL Abs Immat Gran (auto) 0.09 H (0.00-0.03) 10^3/uL Imm/Tot Granulo (auto) 0.7 H (0.0-0.5) % Sodium 141 (136-145) mmol/L Potassium 3.5 (3.5-5.1) mmol/L Chloride 109 H (98-107) mmol/L Carbon Dioxide 23.4 (21.0-32.0) mmol/L Anion Gap 12.1 BUN 42.0 H (7.0-18.0) mg/dL Creatinine 3.53 H (0.55-1.02) mg/dL Est GFR ( Amer) 16 L (>=60 mL/min/1.73m^2) Est GFR (Non-Af Amer) 13 L (>=60 mL/min/1.73m^2) BUN/Creatinine Ratio 11.9 Glucose 51 L (74-106) mg/dL Lactate 1.2 2.2 H* (0.4-2.0) mmol/L Calcium 9.0 (8.5-10.1) mg/dL Phosphorus 2.2 L (2.6-4.7) mg/dL Total Bilirubin 0.7 (0.2-1.0) mg/dL AST 17 (15-37) U/L ALT 25 (14-59) U/L Alkaline Phosphatase 50 (46-116) U/L Troponin I High Sens 28.9 38.7 (4.0-51.3) pg/mL NT-Pro-B Natriuret Pep 1138.0 H (<=900.0) pg/mL Total Protein 6.8 (6.4-8.2) g/dL Albumin 2.9 L (3.4-5.0) g/dL Globulin 3.9 g/dL Albumin/Globulin Ratio 0.7 Urine Color Lt. yellow (YELLOW) Urine Clarity Clear (CLEAR) Urine pH 6.5 (5.0-9.0) Ur Specific [place] 1.010 (1.005-1.025) Urine Protein 100 A (NEG/TRACE) mg/dL Urine Glucose (UA) Negative (NEGATIVE) mg/dL Urine Ketones Negative (NEGATIVE) mg/dL Urine Occult Blood Trace-i (NEGATIVE) Urine Nitrite Positive A (NEGATIVE) Urine Bilirubin Negative (NEGATIVE) Urine Urobilinogen 0.2 (0.2-1.0) EU/dL Ur Leukocyte Esterase Large A (NEGATIVE) Urine RBC 0-2 (0-2) #/HPF Urine WBC 10-20 A (NONE SEEN) #/HPF Ur Squamous Epith Cells Rare (NONE/RARE) #/LPF Ur Transition Epith Cell Rare A (NONE SEEN) #/LPF Urine Crystals None seen (None Seen) #/HPF Urine Bacteria Small A (NONE SEEN) #/HPF Urine Casts None seen (NONE SEEN) #/LPF Urine Mucus None seen (NONE SEEN) Ur Culture Indicated? Yes-[facility] [place] ECG Data Attestation: I personally reviewed and interpreted this ECG as follows: (Sinus rhythm at 68 bpm, normal axis, normal intervals, no acute ST segment elevation or T wave inversion) Critical Care Time Critical Care Time Total Critical Care Time: 35 Attestation: Due to this patient's presentation as a transplant patient with diabetes and heart disease and the high probability of sudden and clinically significant deterioration in her condition she required the highest level of my preparedness to intervene urgently. I provided critical care time including documentation time medication orders and management, reevaluation, vital sign assessment, ordering and reviewing of lab test organ viewing of x-ray studies and consultation with transfer attending. Aggregate critical care time is 35 minutes including only time during which I was engaged in work directly related to her care and did not include time spent in treating other patient simultaneously Discharge Plan Discharge Chief Complaint: Urogenital-Female Clinical Impression: Atrial fibrillation with RVR, Acute kidney injury, UTI (urinary tract infection), Anemia, Kidney transplant recipient, Hypoglycemia Patient Disposition: [facility] Time of Disposition Decision: 03:54 Discharge Location: [facility] Condition: Serious Mode of Transportation: EMS
--- NOTE | 2024-10-10 01:31 | ECG_ITS ---
[facility] Test Date: 2024-10-10 Pat Name: JA TAVERA Department: Room: - Gender: Female Drawer In Jacqu[employer] Loom: : 1960 Requested By: [id number] Order Number: [id number] Reading MD: YOSELIN CHEN M.D. Measurements Intervals [place] Rate: 68 P: 72 [place]: 156 QRS: 60 QRSD: 96 T: 47 QT: 414 QTc: 432 Interpretive Statements 1100 Sinus rhythm 9110 normal ECG Compared to ECG 02/03/2020 12:37:55 No significant changes Electronically Signed On 10-10-2024 17:47:05 EDT by YOSELIN CHEN M.D.
[2024-10-10 01:46] LABS: Hematocrit 27.1 % (36.0-48.0); Hemoglobin 7.9 g/dL (12.0-16.0); Immature Granulocytes Abs Auto 0.09 10^3/uL (0.00-0.03); Immature Granulocytes Pct Auto 0.7 % (0.0-0.5); Lymphocytes Absolute Auto 1.2 10^3/uL (1.2-3.8); Mean Corpuscular HGB Conc 29.2 g/dL (29.9-35.2); Mean Corpuscular Hemoglobin 21.6 pg (26.7-34.0); Mean Corpuscular Volume 74.0 fL (81.0-99.0); Platelet Count 343 10^3/uL (150-450); Red Blood Count 3.66 10^6/uL (4.20-5.40); White Blood Count 13.0 10^3/uL (4.0-11.0)
[2024-10-10] MEDS: 0.9 % SODIUM CHLORIDE 1,779 ML 593 ML IV (01:58)
[2024-10-10] MEDS: PIPERACILLIN SODIUM/TAZOBACTAM 3.375 GM in 0.9 % SODIUM CHLORIDE 50 ML IV (01:58)
[2024-10-10 02:03] LABS: Alanine Aminotransferase 25 U/L (14-59); Albumin Globulin Ratio 0.7; Albumin Level 2.9 g/dL (3.4-5.0); Alkaline Phosphatase 50 U/L (46-116); Anion Gap 12.1; Aspartate Amino Transferase 17 U/L (15-37); Blood Urea Nitrogen 42.0 mg/dL (7.0-18.0); Calcium 9.0 mg/dL (8.5-10.1); Carbon Dioxide 23.4 mmol/L (21.0-32.0); Chloride 109 mmol/L (98-107); Estimated GFR (African America 16 (>=60 mL/min/1.73m^2); Estimated GFR (Non-African Ame 13 (>=60 mL/min/1.73m^2); Globulin 3.9 g/dL; Glucose 51 mg/dL (74-106); Potassium 3.5 mmol/L (3.5-5.1); Sodium 141 mmol/L (136-145); Total Protein 6.8 g/dL (6.4-8.2)
[2024-10-10 02:04] LABS: Lactate/Lactic Acid 1.2 mmol/L (0.4-2.0)
[2024-10-10 02:09] LABS: NT Pro B Type Natriuretic Pept 1138.0 pg/mL (<=900.0)
--- NOTE | 2024-10-10 02:27 | ECG_ITS ---
[facility] Test Date: 2024-10-10 Pat Name: JA TAVERA Department: Room: - Gender: Female Aba Therapist: : 1960 Requested By: [id number] Order Number: [id number] Deborah MD: YOSELIN CHEN M.D. Measurements Intervals [place] Rate: 112 P: -[id number] [place]: -[id number] QRS: 79 QRSD: 92 T: 46 QT: 362 QTc: 428 Interpretive Statements 76996 Atrial fibrillation with rapid ventricular response [address] depression, probably digitalis effect 9150 abnormal ECG Compared to ECG 10/10/2024 01:56:53 ST (T wave) deviation now present Sinus rhythm no longer present Electronically Signed On 10-10-2024 17:47:43 EDT by YOSEILN CHEN M.D.
[2024-10-10] MEDS: DEXTROSE 5%-LACTATED RINGERS 1,000 ML 100 ML IV (02:41)
[2024-10-10] MEDS: 0.9 % SODIUM CHLORIDE 500 ML 250 ML IV (03:00)
[2024-10-10 04:17] LABS: Glucose Urine UA NEGATIVE (NEGATIVE)
[2024-10-10 04:23] LABS: Cast Seen? NONE SEEN #/LPF (NONE SEEN); Crystals Seen? None Seen #/HPF (None Seen)
[2024-10-10 04:24] LABS: Urine Culture Indicated YES-FRMC
[2024-10-10 06:00] LABS: Lactate/Lactic Acid 2.2 mmol/L (0.4-2.0)
--- NOTE | 2024-10-10 09:38 | PC.NURSE ---
LR REMAINS RUNNING DURING TRANSPORT
== END 2024-10-10 09:32 | disposition short-term general hospital (02) ==
PROVIDERS: Emergency Provider Emergency Medicine
DX: N17.9 Acute kidney failure, unspecified (principal); N39.0 Urinary tract infection, site not specified; Z94.0 Kidney transplant status; I48.91 Unspecified atrial fibrillation; R50.9 Fever, unspecified; Z79.4 Long term (current) use of insulin; E11.22 Type 2 diabetes mellitus with diabetic chronic kidney disease; N18.9 Chronic kidney disease, unspecified; Z79.01 Long term (current) use of anticoagulants; Z86.711 Personal history of pulmonary embolism; R11.0 Nausea; K57.30 Diverticulosis of large intestine without perforation or abscess without bleeding; M51.369 Other intervertebral disc degeneration, lumbar region without mention of lumbar back pain or lower extremity pain; I51.9 Heart disease, unspecified; D64.9 Anemia, unspecified; E11.649 Type 2 diabetes mellitus with hypoglycemia without coma
CPT/HCPCS: 36415; 71045; 74176; 80053; 81001; 83605; 83880; 84100; 84484; 85025; 87040; 87086; 87088; 87186; 93005; 96365; 96375; 99285; J2405; J2543